=== PATIENT | male | born 1975 | race Caucasian/White ===

== ENCOUNTER 2023-03-16 07:53 | Outpatient (OUT) | payer BC, SELFPAY ==
--- NOTE | 2023-03-16 07:56 | CT_ITS ---
[address] [address] Patient Name: SUJATA REYNA MRN: [id number] date: 1975 Sex: M Assigned Patient Location: CT Current Patient Location: CT Accession/Order Number: [id number] Exam Date: 03/16/2023 08:05 Report Date: 03/16/2023 09:56 At the request of: JOSH BACH Procedure: CT angio chest EXAMINATION: CT angio chest HISTORY: Other Pulmonary Embolism I26.99 ; pulmonary embolism follow-up COMPARISON: CT chest 09/10/2022 TECHNIQUE: Multi-planar CT images were created with IV contrast. Axial, Coronal, and Sagittal images. Dose reduction techniques were achieved by using automated exposure control and/or adjustment of mA and/or kV according to patient size and/or use of iterative reconstruction technique. 3-D reconstruction was performed on a separate workstation. FINDINGS: VASCULATURE: No pulmonary embolism or abnormal opacity. LUNGS: A few calcified granulomas and a trace amount of atelectasis within the dependent lung regions. No mass, infiltrates, or significant chronic interstitial changes. PLEURA: No mass, effusion, or pneumothorax. MATEO: No mass or adenopathy. MEDIASTINUM: No mass or adenopathy. CARDIAC: No enlargement, pericardial effusion, or pericardial thickening. AORTA: No aneurysm or dissection. CHEST WALL: No mass or axillary adenopathy. BONES: No bone lesion or fracture. LIMITED ABDOMEN: No suspicious findings. Limited images of the upper abdomen. OTHER: Negative. CT/CT angio chest IMPRESSION: 1. Clearing of previously seen pulmonary emboli. 2. No pulmonary infiltrates or lymphadenopathy. Electronically authenticated by: TRIPP CAMPO Date: 03/16/2023 09:56
== END 2023-03-16 07:54 | disposition home or self-care (01) ==
LOC: CT 07:53
PROVIDERS: PCP Family Medicine; Visit Provider Family Medicine
DX: I26.99 Other pulmonary embolism without acute cor pulmonale (principal)
CPT/HCPCS: 71275; Q9967

== ENCOUNTER 2023-03-26 07:58 | Outpatient (OUT) | payer BC, SELFPAY ==
--- NOTE | 2023-03-26 08:10 | US_ITS ---
The [address] [address] Patient Name: SUJATA REYNA MRN: [id number] date: 1975 Sex: M Assigned Patient Location: US Current Patient Location: US Accession/Order Number: [id number] Exam Date: 03/26/2023 08:15 Report Date: 03/26/2023 09:51 At the request of: JOSH BACH Procedure: US venous doppler LE RT EXAMINATION: US venous doppler LE RT HISTORY: Acute Embolism And Thrombosis I82.90 COMPARISON: No relevant comparison available. FINDINGS: REGION: Right lower extremity THROMBI: None. COMPRESSIBILITY: Normal compressibility. FLOW: Normal waveform and antegrade flow between 5 and 20 cm/s. OTHER: None. US/US venous doppler LE RT IMPRESSION: 1. No deep vein thrombus within the right lower extremity. Electronically authenticated by: TRIPP CAMPO Date: 03/26/2023 09:51
== END 2023-03-26 07:59 | disposition home or self-care (01) ==
LOC: US 07:58
PROVIDERS: PCP Family Medicine; Visit Provider Family Medicine
DX: I82.90 Acute embolism and thrombosis of unspecified vein (principal)
CPT/HCPCS: 93971

== ENCOUNTER 2023-04-15 06:58 | Outpatient (OUT) | payer BC, SELFPAY ==
--- NOTE | 2023-04-15 08:04 | CA_ITS ---
Patient: SUJATA REYNA Exam Date: 04/15/2023 : 1975 Gender:M Ordering : Rishabh Beo Admission #: [id number] Family : Order #: [id number] CLICK HERE TO VIEW EXAM ECHOCARDIOGRAM REPORT PROCEDURE: CA ECHO DOPPLER COMPLETE INDICATIONS: Chronic systolic heart failure COMPARISON: None. DESCRIPTION: COMPLETE ECHOCARDIOGRAM Real-time transthoracic echocardiography with 2D, M-mode, spectral and color flow Doppler performed. QUALITY: Technical quality was good. LEFT VENTRICLE: Normal chamber size. Normal left ventricular wall thickness. Global left ventricular systolic function is normal. Abnormal septal motion likely related to bundle branch block. LV EF: Visual estimation of left ventricular ejection fraction is 55%. DIASTOLIC: Normal diastolic function. ATRIAL SEPTUM: LEFT ATRIUM: Normal chamber size. RIGHT ATRIUM: Mild dilatation. RIGHT VENTRICLE: Normal chamber size. Normal right ventricular systolic function. TRICUSPID VALVE: Normal mobility and thickness. No stenosis with trivial regurgitation. No evidence of pulmonary hypertension. RVSP 23 mmHg MITRAL VALVE: Normal mobility and thickness. No evidence of mitral valve stenosis. There is no mitral annular calcification. Trivial mitral regurgitation. AORTIC VALVE: Normal trileaflet appearance. No visible sclerosis. Normal leaflet mobility. No evidence of aortic valve stenosis. No aortic regurgitation. AORTIC ROOT: Normal diameter and appearance. PULMONIC VALVE: Normal thickness and mobility. No stenosis. Trivial regurgitation. PERICARDIUM: No evidence of pericardial effusion. IVC: Collapses with inspirations. Normal size. PLEURA: CONCLUSION: 1. Left ventricular systolic function is normal. Estimated LVEF is 55%. 2. Normal right ventricular size and systolic function. 3. No significant valvular dysfunction. 4. Normal right-sided pressures. 5. No pericardial effusion. Adult Echocardiography Procedure Report Left Ventricle LVEDD (3.7 - 5.6 cm): 5.25 cm LVESD (2.2 - 4.0 cm): 3.72 cm LVIVS thickness (0.6 - 1.2 cm): 0.87 cm LVPW thickness (0.5 - 1.0 cm): 0.96 cm e': 0.10 m/s E - e': 7.93 LVOT Max Gradient: 4.25 mm[Hg], 4.79 mm[Hg] LVOT Area (cm2): 1.06 m/s Peak Velocity (LVOT): 1.03 m/s, 1.09 m/s Mean Velocity (LVOT): 0.73 m/s LVOT Diameter 2.07 cm Left Ventricular Ejection Fraction: 55% Left Atrium LA Volume Index (2D A2C): 34.60 ml/m2 Left Atrium Systolic Dimension: 4.55 cm Mitral Valve MV E to A Ratio: 1.05 Mitral Valve A-Wave Peak Velocity: 0.76 m/s Mitral Valve E-Wave Peak Velocity: 0.79 m/s Right Ventricle RV Internal Diastolic Dimension: 3.59 cm Aorta AO Root Diam: 2.79 cm Ascending Ao Diam: 2.74 cm Aortic Valve AoV Area ([place]): 2.42 cm2, 2.35 cm2 AoV Area (VTI): 2.24 cm2, 2.20 cm2 Peak Velocity(Antegrade Flow): 1.47 m/s Peak Gradient(Antegrade Flow): 8.69 mm[Hg] Mean Velocity(Antegrade Flow): 1.03 m/s Mean Gradient(Antegrade Flow): 4.92 mm[Hg] Velocity Time Integral: 29.93 cm Tricuspid Valve Peak Velocity (Regurgitant Flow): 1.97 m/s, 2.21 m/s, 2.02 m/s Pulmonic Valve Mean Gradient: 5.30 mm[Hg], 4.96 mm[Hg], 4.96 mm[Hg] Mean Velocity: 1.07 m/s, 1.04 m/s, 1.04 m/s Peak Velocity: 1.53 m/s Peak Gradient: 9.48 mm[Hg], 9.48 mm[Hg], 9.09 mm[Hg] Right Atrium Right Atrium Systolic Pressure: 63.76 ml, 63.76 ml Dictated by: Dakota Swain M.D. on 04/15/2023 at 19:43 Approved by: Dakota Swain M.D. on 04/15/2023 at 19:46
== END 2023-04-15 06:59 | disposition home or self-care (01) ==
LOC: CARD 06:59
PROVIDERS: PCP Family Medicine; Visit Provider Internal Medicine Cardiovascular Disease
DX: I50.22 Chronic systolic (congestive) heart failure (principal)
CPT/HCPCS: 93306; 93356

== ENCOUNTER 2023-04-30 09:12 | Outpatient (OUT) | payer BC, SELFPAY ==
[2023-04-30 10:11] LABS: Basophils Absolute Auto 0.1 10^3/uL (0.0-0.1); Basophils Percent Auto 0.8 % (0.2-2.0); Eosinophils Absolute Auto 0.2 10^3/uL (0.0-0.7); Eosinophils Percent Auto 3.1 % (0.9-7.0); Hematocrit 42.2 % (42.0-54.0); Hemoglobin 14.2 g/dL (14.0-18.0); Immature Granulocytes Abs Auto 0.07 10^3/uL (0.00-0.03); Immature Granulocytes Pct Auto 1.1 % (0.0-0.5); Lymphocytes Absolute Auto 1.6 10^3/uL (1.2-3.8); Lymphocytes Percent Auto 24.7 % (20.5-60.0); Mean Corpuscular HGB Conc 33.6 g/dL (29.9-35.2); Mean Corpuscular Hemoglobin 31.5 pg (25.9-34.0); Mean Corpuscular Volume 93.6 fL (80.0-94.0); Mean Platelet Volume 9.3 fL (9.5-13.5); Monocytes Absolute Auto 0.9 10^3/uL (0.3-0.8); Monocytes Percent Auto 13.1 % (1.7-12.0); Neutrophils Absolute Auto 3.7 10^3/uL (1.4-6.5); Neutrophils Percent Auto 57.2 % (43.0-75.0); Platelet Count 259 10^3/uL (150-450); Red Blood Count 4.51 10^6/uL (4.70-6.10); White Blood Count 6.5 10^3/uL (4.0-11.0)
[2023-04-30 10:34] LABS: Alanine Aminotransferase 60 U/L (16-63); Albumin Globulin Ratio 1.1; Alkaline Phosphatase 90 U/L (46-116); Anion Gap 13.6; Aspartate Amino Transferase 23 U/L (15-37); BUN Creatinine Ratio 20.5; Bilirubin Total 0.6 mg/dL (0.2-1.0); C Reactive Protein 0.9 mg/dL (<=1.0); Calcium 8.7 mg/dL (8.5-10.1); Carbon Dioxide 27.4 mmol/L (21.0-32.0); Chloride 103 mmol/L (98-107); Chol HDL Ratio 3.1; Cholesterol 138 mg/dL (<=200); Estimated GFR (African America >60 (>=60); Estimated GFR (Non-African Ame >60 (>=60); Free T3 2.88 pg/mL (2.18-3.98); Globulin 3.6 g/dL; Glucose 95 mg/dL (74-106); HDL Cholesterol 44 mg/dL (40-60); Sodium 140 mmol/L (136-145); Thyroid Stimulating Hormone 2.032 uIU/mL (0.358-3.740); Total Protein 7.6 g/dL (6.4-8.2); Triglycerides 90 mg/dL (<=150); Uric Acid 3.8 mg/dL (3.5-7.2)
[2023-04-30 11:00] LABS: Prostate Specific Antigen Scrn 0.82 ng/mL (<=4.00)
[2023-04-30 11:17] LABS: Estimated Average Glucose 111 mg/dL; Glycohemoglobin A1C 5.5 % (4.5-6.2)
[2023-05-01 06:08] LABS: Antistreptolysin O Ab 119.9 IU/mL (0.0-200.0); Rheumatoid Factor (RF) <10.0 IU/mL (<14.0)
[2023-05-02 12:07] LABS: Insulin 18.5 uIU/mL (2.6-24.9)
[2023-05-04 08:11] LABS: Antinuclear Antibodies, IFA Negative (.)
== END 2023-04-30 09:13 | disposition home or self-care (01) ==
LOC: LAB 09:13
PROVIDERS: PCP Family Medicine; Visit Provider Family Medicine
DX: Z00.00 Encounter for general adult medical examination without abnormal findings (principal); Z12.5 Encounter for screening for malignant neoplasm of prostate
CPT/HCPCS: 36415; 80053; 80061; 83036; 83525; 84436; 84443; 84481; 84550; 85025; 86038; 86060; 86140; 86430; 86431; G0103

== ENCOUNTER 2023-05-04 14:36 | Outpatient (OUT) | payer BC, SELFPAY ==
--- NOTE | 2023-05-04 | XR_ITS ---
The [address] [address] Patient Name: SUJATA REYNA MRN: [id number] date: 1975 Sex: M Assigned Patient Location: [facility] Current Patient Location: Accession/Order Number: [id number] Exam Date: 05/04/2023 14:36 Report Date: 05/05/2023 07:41 At the request of: BRANDON MCCULLOUGH Procedure: XR foot LT min 3V PROCEDURE: XR foot LT min 3V HISTORY: LEFT FOOT PAIN ; lump and increasing pain in region of first metatarsophalangeal joint COMPARISON: None. FINDINGS: BONES:Joint space narrowing, bone hypertrophy, and large periarticular degenerative osteophytes at the first metatarsophalangeal joint. Separate ossifications dorsal to the joint may represent heterotopic bone formation from remote injury. No acute fracture, dislocation, or bone lesion. SOFT TISSUES:No visible soft tissue swelling. EFFUSION:None visible. OTHER: Negative. XR/XR foot LT min 3V IMPRESSION: 1. Marked degenerative changes of the first metatarsophalangeal joint favoring osteoarthritis. Electronically authenticated by: TRPIP CAMPO Date: 05/05/2023 07:41
== END 2023-05-04 14:37 | disposition home or self-care (01) ==
LOC: RAD 14:36
PROVIDERS: PCP Family Medicine; Visit Provider Physician Assistant
DX: M79.672 Pain in left foot (principal)
CPT/HCPCS: 73630

== ENCOUNTER 2023-05-18 14:19 | Outpatient (OUT) | payer BC, SELFPAY | END 2023-05-18 14:20 | disposition home or self-care (01) | LOC: SLEEP 14:19 → LAB 14:39 → SLEEP 14:41 | PROVIDERS: PCP Internal Medicine Cardiovascular Disease; Visit Provider Internal Medicine Cardiovascular Disease | DX: G47.33 Obstructive sleep apnea (adult) (pediatric) (principal) | CPT/HCPCS: 95806 ==

== ENCOUNTER 2023-06-11 09:37 | Outpatient (OUT) | payer BC, SELFPAY ==
[2023-06-11 09:49] LABS: Basophils Percent Auto 0.7 % (0.2-2.0); Eosinophils Absolute Auto 0.1 10^3/uL (0.0-0.7); Eosinophils Percent Auto 2.5 % (0.9-7.0); Hematocrit 43.3 % (42.0-54.0); Hemoglobin 14.5 g/dL (14.0-18.0); Immature Granulocytes Abs Auto 0.04 10^3/uL (0.00-0.03); Immature Granulocytes Pct Auto 0.7 % (0.0-0.5); Lymphocytes Absolute Auto 1.5 10^3/uL (1.2-3.8); Lymphocytes Percent Auto 27.5 % (20.5-60.0); Mean Corpuscular HGB Conc 33.5 g/dL (29.9-35.2); Mean Corpuscular Hemoglobin 31.1 pg (25.9-34.0); Mean Corpuscular Volume 92.9 fL (80.0-94.0); Mean Platelet Volume 8.8 fL (9.5-13.5); Monocytes Absolute Auto 0.6 10^3/uL (0.3-0.8); Monocytes Percent Auto 11.3 % (1.7-12.0); Neutrophils Absolute Auto 3.2 10^3/uL (1.4-6.5); Neutrophils Percent Auto 57.3 % (43.0-75.0); Platelet Count 239 10^3/uL (150-450); Red Blood Count 4.66 10^6/uL (4.70-6.10); Red Cell Distribution Width 12.5 % (11.0-15.0); White Blood Count 5.6 10^3/uL (4.0-11.0)
[2023-06-11 10:00] LABS: Anion Gap 9.7; BUN Creatinine Ratio 18.5; Calcium 8.9 mg/dL (8.5-10.1); Carbon Dioxide 29.1 mmol/L (21.0-32.0); Chloride 101 mmol/L (98-107); Estimated GFR (African America >60 (>=60); Estimated GFR (Non-African Ame >60 (>=60); Glucose 97 mg/dL (74-106); Potassium 3.8 mmol/L (3.5-5.1); Sodium 136 mmol/L (136-145)
== END 2023-06-11 09:38 | disposition home or self-care (01) ==
LOC: LAB 09:38
PROVIDERS: PCP Family Medicine; Visit Provider Internal Medicine Cardiovascular Disease
DX: I48.3 Typical atrial flutter (principal)
CPT/HCPCS: 36415; 80048; 85025

== ENCOUNTER 2023-06-23 19:46 | Outpatient (OUT) | payer BC, SELFPAY ==
--- OUTSIDE RECORDS SUMMARY | 2023-06-23 19:49 | XMS_ITS | CCD ---
Author Name Unknown Address [address] [place] [address] Organization [facility] Care Team Providers Care Recording Studio Set Up Worker Name Role Phone Josh Bach Primary Care Physician MIKALA ., DR MORENO Attending Unavailable HOY ., DR MORENO Consulting Unavailable HOY ., DR MORENO Primary Care Unavailable HOY ., DR MORENO Admitting Unavailable WEST, DR TERESSA Rai Consulting Unavailable HOY ., DR MORENO Attending Unavailable HOY ., DR MORENO Consulting Unavailable HOY ., DR MORENO Primary Care Unavailable HOY ., DR MORENO Admitting Unavailable HOY ., DR MORENO Consulting Unavailable HOY ., DR MORENO Attending Unavailable HOY ., DR MORENO Primary Care Unavailable HOY ., DR MORENO Admitting Unavailable WEST, DR TERESSA Rai Consulting Unavailable ZIEBER, DR TRIPP Zurita Consulting Unavailable HOY ., DR MORENO Attending Unavailable HOY ., DR MORENO Consulting Unavailable HOY ., DR MORENO Primary Care Unavailable HOY ., DR MORENO Admitting Unavailable GRECHNY ., KATIE RICHARDSON Consulting Unavailshade LLANES ., DR MÉNDEZ Consulting Unavailable SAMSA ., SOREN Consulting Unavailable AUTUMN ., VITO Consulting Unavailable SISTER, CONNOR Consulting Unavailable NEWATIA, JEAN Consulting Unavailable COATS, NORI Consulting Unavailable HOY ., DR MORENO Attending Unavailable HOY ., DR MORENO Consulting Unavailable HOY ., DR MORENO Primary Care Unavailable HOY ., DR MORENO Admitting Unavailable HAY ., DR MÉNDEZ Consulting Unavailable ELENA KNIGHT Consulting Unavailable ERNA WILKES Consulting Unavailable HOY ., DR MORENO Attending Unavailable HOY ., DR MORENO Consulting Unavailable HOY ., DR MORENO Primary Care Unavailable HOY ., DR MORENO Admitting Unavailable NILLEduardo R Attending Unavailable Josh Bach Referring Unavailable NILL Eduardo R Attending Unavailable Benton CARL Attending Unavailable Benton CARL Attending Unavailable NILL, Eduardo Zurita Referring Unavailable NILL, Eduardo Zurita Attending Unavailable NILL, Eduardo Zurita Admitting Unavailable BARAZHawk, MARIE Attending Unavailable MADELAINE, RISHABH Attending Unavailable JESUS, JUSTUS Attending Unavailable BARAZI, MARIE Attending Unavailable GAMALIEL, SARYADIRA Admitting Unavailable AHMED, FLASH Attending Unavailable MADELAINE, RISHABH Admitting Unavailable MADELAINE, RISHABH Attending Unavailable MADELAINE, RISHABH Admitting Unavailable MADELAINE, RISHABH Attending Unavailable MADELAINE, RISHABH Admitting Unavailable MADELAINE, RISHABH Attending Unavailable SERGEY, ISA Attending Unavailable MADELAINE, RISHABH Attending Unavailable EMILY, SHIRA Referring Unavailable EMILY, SHIRA Referring Unavailable AHMED, FLASH Referring Unavailable MADELAINE, RISHABH Referring Unavailable MADELAINE, RISHABH Referring Unavailable MADELAINE, RISHABH Referring Unavailable BARAZI, MARIE Attending Unavailable MADELAINE, RISHABH Attending Unavailable Allergies Allergy Classification Reported Allergen(s) Allergy Type Date of Onset Reaction(s) Facility (1 source) No Known Medication Allergies; Translations: [No Known Medication Allergies] Propensity to adverse reactions (disorder) [facility] Repository Medications Current Medications Medication Drug Class(es) Dates Sig (Normalized) Sig (Original) Ascorbic Acid (1 source) Vitamin C Start: 08-23-2019 Vitamin C 1,000 mg, Daily, Refills(s) 0 Start Date: 08/23/19 Status: Ordered aspirin 81 mg delayed release oral tablet (3 sources) Platelet Aggregation Inhibitor, Nonsteroidal Anti-inflammatory Drug Start: 04-14-2023 take 1 tablet by mouth once daily aspirin 81 mg Oral EC Tab 81 mg = 1 tab(s), Oral, Daily, Refills(s) 0, Prophylaxis Start Date: 04/14/23 Status: Ordered Start: 09-04-2022 aspirin Refill s(s) 0 Start Date: 09/04/22 Status: Ordered atorvastatin 40 mg oral tablet (2 sources) HMG-CoA Reductase Inhibitor Start: 04-07-2023 take 1 tablet by mouth once daily atorvastatin 40 mg Tab 40 mg = 1 tab(s), Oral, Daily, Refills(s) 0, High cholesterol Start Date: 04/07/23 Status: Ordered dapagliflozin 10 mg oral tablet (3 sources) Sodium-Glucose Cotransporter 2 Inhibitor Start: 09-04-2022 take 10 mg by mouth once daily dapagliflozin 10 mg, Oral, Daily, Refills(s) 0 Start Date: 09/04/22 Status: Ordered Start: 09-04-2022 dapagliflozin Refills(s) 0 Start Date: 09/04/22 Status: Ordered irbesartan 150 mg oral tablet (1 source) Angiotensin 2 Receptor Kristen Start: 2019 take 1 mg by mouth once daily irbesartan 150 mg Tab mg tab(s), Oral, Daily, Refills(s) 0 Start Date: 09/01/19 Status: Ordered metoprolol tartrate 100 mg oral tablet (3 sources) beta-Adrenergic Kristen Start: 09-04-2022 take 100 mg by mouth once daily metoprolol 100 mg, Oral, Daily, Refills(s) 0, High blood pressure Start Date: 09/04/22 Status: Ordered Start: 09-04-2022 metoprolol Ref ills(s) 0 Start Date: 09/04/22 Status: Ordered Multi Vitamin+ (1 source) Start: 08-23-2019 Multi Vitamin+ Refill(s) 0 Start Date: 08/23/19 Status: Ordered Red Yeast Rice (1 source) Start: 08-23-2019 take 1 mg by mouth once daily Red Yeast Rice mg, Oral, Daily, Refills(s) 0 Start Date: 08/23/19 Status: Ordered sacubitril 24 mg / valsartan 26 mg oral tablet (3 sources) Angiotensin 2 Receptor Kristen Start: 04-07-2023 take 1 tablet by mouth twice daily Entresto 24 mg-26 mg oral tablet 1 tab(s), Oral, BID, Refill(s) 0 Start Date: 04/07/23 Status: Ordered Start: 09-04-2022 sacubitril-isreal sartan Start Date: 09/04/22 Status: Ordered tadalafil 10 mg oral tablet (3 sources) Phosphodiesterase 5 Inhibitor Start: 08-30-2020 Cialis 10 mg Tab 10 mg = 1 tab(s), Oral, As Directed, PRN for erectile dysfunction, # 30 tab(s), Refills(s) 2, Pharmacy: [facility] [id number], 175, cm, 08/30/20 8:53:00 EST, Height/Length Dosing, 109, kg, 08/30/20 8:53:00 EST, Weight Dosing Start Date: 08/30/20 Status: Ordered terazosin 10 mg oral capsule (3 sources) alpha-Adrenergic Kristen Start: 09-04-2022 take 1 capsule by mouth once daily terazosin 10 mg Cap 10 mg = 1 cap(s), Oral, Daily, # 90 cap(s), Refills(s) 3, Pharmacy: [facility]/pharmacy #[id number], 175, cm, 09/04/22 8:34:00 EST, Height/Length Dosing, 99, kg, 09/04/22 8:34:00 EST, Weight Dosing Start Date: 09/04/22 Status: Ordered Vitamin D3 (1 source) Start: 08-30-2020 Vitamin D3 Refills(s) 0 Start Date: 08/30/20 Status: Ordered Problems Active Problems Problem Classification Problem Date Documented Da te Episodic/Chronic Acute bronchitis (1 source) Acute bronchitis, unspecified; Translations: [ACUTE BRONCHITIS UNSPECIFIED] Onset: 3 Episodic Anxiety disorders (2 sources) Anxiety 04-07-2023 Chronic Cardiac dysrhythmias (7 sources) Paroxysmal atrial fibrillation; Translations: [Atrial fibrillation] Onset: 3 04-07-2023 Chronic Chronic obstructive pulmonary disease and bronchiectasis (1 source) Bronchitis, not specified as acute or chronic; Translations: [BRONCHITIS NOT SPEC ACUTE/CHRON] Onset: 3 Episodic Conduction disorders (4 sources) Left bundle branch block; Translations: [Left bundle-branch block, unspecified] Onset: 3 04-07-2023 Chronic Congestive heart failure; nonhypertensive (8 sources) Heart failure, unspecified; Translations: [Acute systolic (congestive) heart failure] Onset: 3 04-07-2023 Chronic Coronary atherosclerosis and other heart disease (2 sources) Unstable angina; Translations: [Unstable angina] Onset: 3 Chronic Diabetes mellitus without complication (6 sources) Glycosuria; Translations: [Glycosuria] Onset: 2 Episodic Disorders of lipid metabolism (2 sources) Mixed hyperlipidemia; Translations: [Mixed hyperlipidemia] Onset: 3 Chronic Essential hypertension (6 sources) Hypertensive disorder; Translations: [Essential (primary) hypertension] Onset: 3 08-23-2019 Chronic Hyperplasia of prostate (4 sources) Benign prostatic hypertrophy with outflow obstruction; Translations: [Benign prostatic hyperplasia with lower urinary tract symptoms] Onset: 3 Chronic Inflammatory conditions of male genital organs (3 sources) Prostatitis 08-23-2019 Episodic Neoplasms of unspecified nature or uncertain behavior (4 sources) Neoplasm of uncertain behavior of skin; Translations: [Neoplasm of uncertain behavior of skin] Onset: 3 Episodic Nonspecific chest pain (1 source) Chest pain, unspecified; Translations: [CHEST PAIN UNSPECIFIED] Onset: 3 Episodic Other aftercare (1 source) 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; Translations: [WATER RECLAMATION SYSTEMS OPERATOR CURRENT USE OF ASPIRIN] Onset: 3 Episodic Other aftercare (1 source) Other buttermaker continuous churn (current) drug therapy; Translations: [OTH WATER RECLAMATION SYSTEMS OPERATOR CURRENT DRUG THERAPY] Onset: 3 Episodic Other and unspecified benign neoplasm (1 source) Lipoma of skin and subcutaneous tissue of limb; Translations: [Benign lipomatous neoplasm of skin and subcutaneous tissue of left arm] Onset: 3 Episodic Other and unspecified benign neoplasm (2 sources) Lipoma of shoulder 04-14-2023 Episodic Other and unspecified benign neoplasm (1 source) Lipoma of skin and subcutaneous tissue of trunk; Translations: [Benign lipomatous neoplasm of skin and subcutaneous tissue of trunk] Onset: 3 Episodic Other liver diseases (4 sources) Liver disease, unspecified; Translations: [LIVER DISEASE UNSPECIFIED] Onset: 3 Chronic Other lower respiratory disease (1 source) Acute respiratory distress; Translations: [ACUTE RESPIRATORY DISTRESS] Onset: 3 Episodic Other lower respiratory disease (1 source) Hypoxemia; Translations: [HYPOXEMIA] Onset: 3 Episodic Other lower respiratory disease (1 source) Dyspnea, unspecified; Translations: [DYSPNEA UNSPECIFIED] Onset: 3 Episodic Other lower respiratory disease (2 sources) Snoring; Translations: [Snoring] Onset: 3 Episodic Other male genital disorders (1 source) Male erectile dysfunction, unspecified; Translations: [Erectile dysfunction] Onset: 3 Chronic Other male genital disorders (3 sources) Impotence 08-23-2019 Chronic Other nutritional; endocrine; and metabolic disorders (3 sources) Body mass index 30+ - obesity 09-04-2022 Chronic Other nutritional; endocrine; and metabolic disorders (2 sources) Obesity 04-07-2023 Chronic Shira-; endo-; and myocarditis; cardiomyopathy (except that caused by tuberculosis or sexually transmitted disease) (2 sources) Cardiomyopathy 04-07-2023 Chronic Phlebitis; thrombophlebitis and thromboembolism (1 source) Acute embolism and thrombosis of right femoral vein; Translations: [ACUTE EMBO THROMBOS RT FEMORAL VEIN] Onset: 3 Episodic Pleurisy; pneumothorax; pulmonary collapse (1 source) Pleurisy; Translations: [PLEURISY] Onset: 3 Episodic Pulmonary heart disease (5 sources) Other pulmonary embolism without acute cor pulmonale; Translations: [H/O: pulmonary embolus] Onset: 3 Episodic Residual codes; unclassified (1 source) Other specified postprocedural states; Translations: [OTH SPECIFIED POSTPROCEDURAL STATES] Onset: 3 Episodic Screening and history of mental health and substance abuse codes (4 sources) Ex-smoker; Translations: [Personal history of nicotine dependence] Onset: 3 08-23-2019 Episodic Unclassified (4 sources) CONTACT W/AND (SUSP) EXPOS COVID-19; Translations: [CONTACT W/AND (SUSP) EXPOS COVID-19] Onset: 3 Unclassified (2 sources) Patient encounter status 04-14-2023 Unclassified (1 source) Other supraventricular tachycardia; Translations: [Other supraventricular tachycardia] Onset: 3 Unclassified (1 source) Other ventricular tachycardia; Translations: [Other ventricular tachycardia] Onset: 3 Unclassified (2 sources) Hospital Follow-up; Translations: [Hospital Follow-up] Onset: 3 Past or Other Problems Problem Classification Problem Date Documented Date Episodic/Chronic Cardiac dysrhythmias (9 sources) Tachycardia, unspecified; Translations: [Palpitations] Onset: 08-18-2022 Episodic Other screening for suspected conditions (not mental disorders or infectious disease) (10 sources) Abnormal findings on diagnostic imaging of other abdominal regions, including retroperitoneum; Translations: [Abnormal electrocardiogram [ECG] [EKG]] Onset: 08-24-2022 Episodic Syncope (6 sources) Syncope and collapse; Translations: [SYNCOPE AND COLLAPSE] Onset: 08-27-2022 Episodic Unclassified (1 source) CONTACT W/AND (SUSP) EXPOS COVID-19; Translations: [CONTACT W/AND (SUSP) EXPOS COVID-19] Onset: 09-04-2022 Unclassified (1 source) Other supraventricular tachycardia; Translations: [Other supraventricular tachycardia] Onset: 06-14-2023 Unclassified (1 source) Other ventricular tachycardia; Translations: [Other ventricular tachycardia] Onset: 10-02-2022 Results Test Name Value Interpretation Reference Range Facility [facility] 06-14-2023 [facility] Electrophysiology Consult Note [facility] Reason for visit: svt, nsvt, s/p loop, s/p avnrt ablation LOOP reveals suggestion of atrial flutter / 2:1 AT as per strips on 03/26/23 @10:40am. He was unaware of this. His BP has been high and he feels better with Irbesartan. He feels tired with Lopressor 75mg bid. Otherwise has been doing well with no complaints of chest pain, shortness of breath, DESAI, LE edema. e did have some nocturnal bradycardia which could be related to his beta-kristen but patient states he does snore and wake up frequently which raises concern for undiagnosed sleep apnea STOP-BANG is 4 03/23/23 Patient had a repeat CTA on 03/16/23 which ruled out any more PE. . Like to stop his anticoagulation. LOOP eval has revealed no episodes of tachycardia. few episodes of VT that was noted T wave oversensing and noise. --------- 10/20/22 HPI: Patient for follow-up s/p EP study/01/17. 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 Post ablation patient continued to have symptoms of palpitations, and an event monitor placed due to being admitted at [facility] for chest discomfort and acute PE. Event monitor revealed NSVT with symptoms of dizziness. He had reduced EF with AVNRT but now EF has improved. He was then taken to EP lab for V stim to induce an SVT for possible ablation. There is no inducible VT or tachycardia. There was presence of retrograde concealed accessory pathway in the left lateral location which was not pursued due to no tachycardia being induced. Catheter movement would induce a flutter as well as A-fib which self terminated on its own. Patient continues to experience palpitations although less frequently than before. But he has experience of palpitations with lightheadedness. I discussed with him because his symptoms are persisting we should continue to move forward with a loop monitor insertion to monitor palpitations for VT/SVTs --------- Previous 08/[address] burkett HPI: Sujata Reyna is a 47 y.o. year old with past medical history of hypertension and recent admission to an outside hospital due to palpitations. Nearly 3 weeks ago the patient had an episode of chest tightness and fluttering, this was associated with lightheadedness and presyncopal symptoms. He was admitted at an outside hospital, his EKG was showing left bundle branch block and he had an echocardiogram and stress test done as an outpatient, echo is showing an EF of 45 to 50% with abnormal septal motion. stress test was showing areas of moderate severity perfusion abnormalities in anterior wall. Patient continues to report increased dyspnea recently, no orthopnea, no paroxysmal nocturnal dyspnea. Patient underwent heart cath and was unremarkable. EP study was done by Dr Blas and a intermediate RP tachycardia was induced. No ventricular overdrive pacing was performed to differentiate between SVT. Radiofrequency ablation of slow pathway was performed and he was discharged. Ventricular stimulation for VT was not done. Since his discharge from [facility], he was admitted to [facility] for chest pain. He was found to have an acute PE and was started on Eliquis. BLE doppler showed small nonocclusive right femoral vein thrombus. He also noted that he had also traveled down to [place] via car the few days prior to episode. Since his admission at [facility] last week, he has been feeling better. Chest pain is intermittent but improved. He denies dyspnea,He had an event monitor placed and this revealed NSVT again with symptoms of dizziness. ( Strips attached) PMH- HTN PSH- no pertinent cardiac procedures/surgery FMH- Father passed 48 yo aneurysm- (back of neck), HTN; Social- Former smoker 17 yrs- 1 PPD, quit in 2008, Social- beer here and there; denied illicit drug use Review of Systems Constitutional: Negative for chills, decreased appetite, fever, malaise/fatigue and weight gain. Cardiovascular: Positive for palpitations/lightheade dness. Negative for claudication, dyspnea on exertion, irregular heartbeat, leg swelling, near-syncope, orthopnea, palpitations, paroxysmal nocturnal dyspnea and syncope. Respiratory: Negative for cough, shortness of breath and wheezing. PMH: Past Medical History: Diagnosis Date Abnormal ECG Arrhythmia AVNRT (AV erica re-entry tachycardia) CHF (congestive heart failure) (CMS/HCC) Hypertension PSH: Past Surgical History: Procedure Laterality Date ABLATION OF DYSRHYTHMIC FOCUS CARDIAC CATHETERIZATION HERNIA REPAIR SH: Social Determinants of Health Tobacco Use: Medium Risk (04/23/2023) Patient History Smoking Tobacco Use: Former Smokeless Tobacco Use: Never Passive Exposure: Past Alcohol Use: Not on file Financial Resource Strain: Low Risk (08/28/2022) O (more content not included)... Normal [facility] NURSNOTEon 06-14-2023 NURSNOTE RN educated pt on d/ c instructions. RN encouraged pt to voice any questions or concerns. Pt verbalizes no questions or concerns at this time. Normal [facility] Orders Onlyon 06-07-2023 Orders Only [id number] Sujata Reyna 1975 M Date Provider Department Center 06/07/2023 BELINDA ALVAREZ [facility] No family history on file [facility] General Surgery Office/Clini c Noteon 05-29-2023 General Surgery Office/Clinic Note Chief Complaint post operative follow up HPI Staff 12 day post operative follow up post colonoscopy with sigmoid polypectomy and excisional biopsy right posterior thigh lesion and left upper back lipoma. History of Present Illness s/p colonoscopy with removal of small hyperplastic sigmoid polyp, also excision lipoma left upper back and skin lesion right upper posterior thigh; doing well, mild soreness from thigh incision, irritation of sutures, no drainage; pathology consistent with benign lipoma, and for thigh lesion dermatofibroma, positive margins. Review of Systems ROS - Provider Constitutional: no fever, no sweats, no weight loss. Eyes: no glasses, no blurred vision, no visual loss. ENMT: no dentures, no hoarseness, no swallowing difficulties, no hearing loss, no ear infection(s), no nose bleeds. Cardiovascular: normal blood pressure, no chest pain, regular heartbeat, no heart murmur. Respiratory: no shortness of breath, no cough, no asthma, no wheezing. Gastrointestinal: no nausea, no vomiting, no diarrhea, no constipation, no blood in stool, no change in bowel habits, no abdominal pain, no hepatitis. Genitourinary: no kidney stones, no urine infection, no dysuria. Musculoskeletal: no pain, no weakness. Skin: no changing moles, no rash, no skin lumps. Neurologic: no seizures, no epilepsy, no headache. Psychiatric: no emotional or psychiatric problem. Heme/Lymph: no bleeding problems, no anemia, no blood clots, no transfusions. Allergy/Immunologic: no swollen lymph nodes/glands, no IV drug abuse. Other: Additional ROS info: Except as noted in the above Review of Systems and in the History of Present Illness, all other systems have been reviewed and are negative or noncontributory. Physical Exam skin: left upper back incision healing well, no induratio or drainage, no erythema; right posterior thigh incision with erythema around sutures, no drainage. Assessment/Plan 1. Lipoma of left shoulder (D17.22: Benign lipomatous neoplasm of skin and subcutaneous tissue of left arm) doing well, call with problems/questions. 2. Dermatofibroma of thigh (D23.70: Other benign neoplasm of skin of unspecified lower limb, including hip) sutures removed, call with problems/questions; if recurs and is symptomatic, can proceed with wide excision. 3. Hyperplastic polyp of sigmoid colon (K63.5: Polyp of colon) f/u screening colonoscopy in 10 years. Follow-up No qualifying data available Problem List/Past Medical History Ongoing Anxiety Atrial fibrillation BMI 33.0-33.9,adult BPH with urinary obstruction Cardiomyopathy Chronic congestive heart failure Dermatofibroma of thigh Former smoker Glycosuria History of pulmonary embolism Hyperplastic polyp of sigmoid colon Hypertension Impotence LBBB (left bundle branch block) Lipoma of left shoulder Neoplasm of uncertain behavior of skin of thigh Obesity Prostatitis Screening for malignant neoplasm of colon Historical No qualifying data Procedure/Surgical History Colonoscopic polypectomy (05/14/2023), Excision of dermatofibroma (05/14/2023), Excision of lipoma of shoulder (05/14/2023), Fluoroscopic guidance for cardiac ablation (08/2022), Repair of right inguinal hernia. Medications aspirin 81 mg Oral EC Tab, 81 mg= 1 tab(s), Oral, Daily atorvastatin 40 mg Tab, 40 mg= 1 tab(s), Oral, Daily, Not taking Cialis 10 mg Tab, 10 mg= 1 tab(s), Oral, As Directed, PRN, 2 refills dapagliflozin, 10 mg, Oral, Daily Entresto 24 mg-26 mg oral tablet, 1 tab(s), Oral, BID metoprolol, 100 mg, Oral, Daily terazosin 10 mg Cap, 10 mg= 1 cap(s), Oral, Daily, 3 refills Allergies No Known Allergies No Known Medication Allergies Social History Alcohol Current, Beer, 1-2 times per week, 04/14/2023 Substance Abuse - Denies Substance Abuse, 04/14/2023 Tobacco Former smoker, quit more than 30 days ago Tobacco Use:. Never Smokeless Tobacco Use:. Cigarettes, 1 per day. Started age 18.0 Years. Stopped age 33 Years., 04/14/2023 Family History Hypertension: Mother and Father. Immunizations Vaccine Date Status Comments SARS-CoV-2 (COVID-19) Ad26 vaccine - Not Given Postpone due to refusal sipuleucel-T 03/25/2020 Recorded influenza virus vaccine, live, trivalent 04/03/2019 Recorded Normal [facility] Comment on above: Result Comment: Elec tronically Signed By: KEMAR MOLINA, Eduardo Galloway\Date and Time Signed: 05/29/23 10:25 EST Ambulatory Visit Summaryon 1 07-26-2022 Ambulatory Visit Summary SUJATA REYNA :1975 Visit Date:05/26/2023 Ambulatory Visit Instructions Your Care Team Attending Physician - KEMAR MOLINA, Eduardo Zurita Primary Care Physician - Josh Bach MD This Is Your Medications List aspirin (aspirin 81 mg Oral EC Tab) atorvastatin (atorvastatin 40 mg Tab) dapagliflozin metoprolol sacubitril-valsartan (Entresto 24 mg-26 mg oral tablet) tadalafil (Cialis 10 mg Tab) terazosin (terazosin 10 mg Cap) Procedures Performed Colonoscopic polypectomy (05/14/2023), Excision of dermatofibroma (05/14/2023), Excision of lipoma of shoulder (05/14/2023), Fluoroscopic guidance for cardiac ablation (08/2022), Repair of right inguinal hernia. What to do next Scheduled Follow-Up Appointments Wednesday 8:00 AM EST With: SIDDHARTHA MOLINA, Benton Zurita Where: [facility] Normal [facility] Postoperative Documentson Postoperative Documents [id number] IFF [facility] Reminderson 05-26-2023 Reminders - From: Leanne Iyer LPN To: GSN - Clinical; Sent: 05/26/2023 16:50:18 EST Show up: 04/13/2033 07:00:00 EDT Subject: colonoscopy recall Due Date/Time: 05/14/2033 07:00:00 EST Reminder/Recall Patient due for screening colonoscopy 05/14/2033. [facility] IntraOperative Documentson 1 07-19-2022 IntraOperative Documents [id number] TIFF [facility] Consenton 05-17-2023 Consent [id number] IFF [facility] Discharge Instructionson Discharge Instructions [id number] IFF Normal [facility] Main OR Intraoperative Recor don 05-17-2023 Main OR Intraoperative Record IntraOp Document Type FT Summary Primary Physician: Eduardo REINOSO MD Finalized Date/Time: 05/17/23 12:28:54 Pt. Name: SUJATA REYNA Bridgette /Sex: 1975 Male Med Rec #: [id number] Physician: Eduardo REINOSO MD Financial #: [id number] Pt. Type: O Room/Bed: / Admit/Disch: 05/14/23 06:49:57 - 05/14/23 23:59:59 Institution: Case Times FT Entry 1 Patient Times In Room 05/14/23 07:55:00 Out Room 05/14/23 08:55:00 Procedure Times Start 05/14/23 08:00:00 Stop 05/14/23 08:52:00 Anesthesia Times Start 05/14/23 07:55:00 Stop 05/14/23 08:55:00 Time at [place] 05/14/23 08:02:00 Last Modified By: Robert MCKEON, Evelin Valdivia 05/14/23 08:55:33 General Comments: Colonoscopy stop time at 0812./MIKE DELACRUZ/lesion procedure start time at 0818./MIKE DELACRUZ 05/17/23 chart opened for charge review per Emerita Bansal RN. [place] Case Attendance FT Entry 1 Entry 2 Entry 3 Case Attendee Deppen TOWEL HEMMER, Eunice Jones RN, Mel Duncan Role Performed TOWEL HEMMER Hemmer Automatic - Primary Scrub - Primary Time In 05/14/23 07:55:00 05/14/23 07:55:00 05/14/23 07:55:00 Time Out 05/14/23 08:55:00 05/14/23 08:55:00 05/14/23 08:55:00 Procedure COLONOSCOPY(Right, COLONOSCOPY(Right, COLONOSCOPY(Right, Left, .), CYST LESION Left, .), CYST LESION Left, .), CYST LESION REMOVAL(.) REMOVAL(.) REMOVAL(.) Comments Dr. Madrid is supervising Last Modified By: Robert MCKEON, Evelin Jones RN, Evelin Jones RN, Evelin Valdivia 05/14/23 08:55:35 05/14/23 08:56:01 05/14/23 08:56:01 Entry 4 Entry 5 Entry 6 Case Attendee Keyla Olea MD, Eduardo Hsieh CST, Echo Ortez Role Performed Staff - Other Surgeon - Primary Scrub - Primary Time In 05/14/23 07:55:00 05/14/23 07:55:00 05/14/23 07:55:00 Time Out 05/14/23 08:55:00 05/14/23 08:55:00 05/14/23 08:55:00 Procedure COLONOSCOPY(Right, COLONOSCOPY(Right, COLONOSCOPY(Right, Left, .), CYST LESION Left, .), CYST LESION Left, .), CYST LESION REMOVAL(.) REMOVAL(.) REMOVAL(.) Comments Last Modified By: Evelin Jones RN, RN, Evelin Jones RN, Evelin Valdivia 05/14/23 08:56:01 05/14/23 08:56:01 05/14/23 08:56:01 Perioperative Protocols FT Pre-Care Text: Implements protective measures prior to operative or invasive procedure, confirms identity before the operative or invasive procedure, verifies operative procedure, surgical site, and laterality Entry 1 Procedure(s) COLONOSCOPY(Right, Patient Identity Birthday, ID Band Left, .), CYST LESION Verified (select at Check, Patient REMOVAL(.) least 2): Participation Consents / H and P Anesthesia Consent, Operative Site Present Verified HandP, Surgery/Procedure Marking Verified Consent Surgical Site Yes Laterality Verified Yes Verified Procedure Verified Yes Correct Patient Yes Position Verified Availability Equipment, Medication Prep Dry Yes Verified (If Applicable) PreOp Antibiotic No Time Out Deppen Eunice CLARKE, Given Participants Evelin Jones RN, Mel Sweeney, Keyla Olea NILL MD, Jori Huber CST, Echo Ortez Time Out Complete 05/14/23 07:59:00 Outcomes Met? Yes Last Modified By: Evelin Jones RN 05/14/23 08:27:07 Post-Care Text: The patient is free from signs and symptoms of injury caused by extraneous objects Allergy Information FT Pre-Care Text: Verifies allergies Entry 1 Allergies Reviewed? Yes Allergies Reviewed Self/Patient With Outcomes Met? Yes Last Modified By: Evelin Jones RN 05/14/23 08:04:26 Post-Care Text: The patient received appropriate medication(s) safely administered during the perioperative period Surgical Procedures FT Entry 1 Entry 2 Procedure Description Procedure COLONOSCOPY CYST LESION REMOVAL Modifiers Right, Left, . . Surgeon Description Colonoscopy with COLONOSCOPY and LESION sigmoid colon RIGHT SIDE OF RIGHT polypectomy. Lesion THIGH and LYPOMA ON LEFT right side of righrt SHOULDER thigh removal. Lypoma on lest shoulder removal. Primary Procedure Yes No Primary Surgeon KEMAR MOLINA, Eduardo REINOSO MD, Eduardo Maza 05/14/23 08:00:00 05/14/23 08:00:00 Stop 05/14/23 08:52:00 05/14/23 08:52:00 Anesthesia Type General General Surgical Service General General Wound Class 2 - Clean-Contaminated 1 - Clean Last Modified By: Evelin Jones RN, RN, BSN, [facility] 05/14/23 08:52:23 05/17/23 12:22:19 General Case Data FT Pre-Care Text: Classifies surgical wound, implements aseptic technique, initiates traffic control Entry 1 Case Information OR ENDO 1 FT Case Level Level 2 Wound Class 2 - Clean-Contaminated Specialty General ASA Class 2 Preop Diagnosis Screening Postop Same As Preop No Postop Diagnosis Colonoscopy- Sigmoid Outcomes Met? Yes diverticulosis and sigmoid polyp. Lipoma removal on left shoulder. Excision of lesion right side of the right thigh. Last Modified By: Evelin Jones RN 05/14/23 08:13:28 Post-Care Text: (more content not included)... Normal [facility] Operative Reporton 3 Operative Report SURGERY DATE: 05/14/2023 PREOPERATIVE DIAGNOSIS: Enlarging lipoma, left upper shoulder as well as irritated posterior thigh skin lesion OPERATION: Excisional biopsy irritated right posterior thigh lesion and left upper back lipoma ANESTHESIA: Monitored anesthesia care as well as local with 0.5% Marcaine plain ESTIMATED BLOOD LOSS: Less than 5 mL INDICATIONS AND CONSENT: The patient is a 47 year old male who presented for screening colonoscopy. Also has irritated lesion of uncertain behavior in the right posterior thigh that becomes ulcerated and bleeds at times. He also has an enlarging subcutaneous nodule consistent with lipoma on the left upper back. Indications, risks, benefits, alternatives of proceeding with excisional biopsy of these lesions at the time of colonoscopy under monitored anesthesia care and local. Indications, risks, alternatives were explained in detail including the risk of bleeding, infection, scarring, pain, recurrence, need for further surgery. All of his questions were answered. Informed consent was obtained. PROCEDURE: The patient was in the Endoscopy Suite after his colonoscopy was completed. He remained in the left lateral decubitus position. The right upper thigh posterior skin lesion was prepped and draped in the usual sterile fashion. It was anesthetized with 0.5% Marcaine plain. It was excised in an elliptical fashion down to subcutaneous fat. Total length of the incision was 2 cm. It was sent off to Pathology. The subcutaneous tissue was reapproximated with interrupted 3-0 Monocryl suture. The skin was then closed with a 4-0 Nylon simple suture. Sterile dressing was applied. The patient was then placed in the right lateral decubitus position. The subcutaneous nodule on the left upper back was prepped and draped in the usual sterile fashion and anesthetized with 0.5% Marcaine plain. An incision was made over the long axis of the lesion in the area of the skin crease, carried down through the subcutaneous tissue using sharp dissection. A lipoma was encountered. This was freed up and sent off to Pathology. Maximum dimension was 4.5 cm. It was sent off to Pathology. The wound was irrigated. The subcutaneous tissue was reapproximated with interrupted 3-0 Monocryl suture. The skin was closed with a running 4-0 subcuticular Monocryl suture and skin glue. Steri-Strips were applied as well as a sterile pressure dressing. Sponge and needle counts were correct x3 per Nursing personnel. The patient tolerated the procedure well, was sent to Recovery Area in good condition. Eduardo Reinoso M.D. [facility] adelina Dictated: 05/14/2023 [id number] Transcribed: 05/14/2023 cc:Josh Bach M.D. [facility] Comment on above: Result Comment: Elec tronically Signed By: KEMAR MOLINA, Eduardo Zurita\.br\Date and Time Signed: 05/16/23 20:29 EST Progress Note-Physicianon Progress Note-Physician Patient: SUJATA REYNA Age: 47 years Sex: Male : 1975 Associated Diagnoses: None Author: Ricardo Madrid Jr, DO Preoperative Information Anesthesia Preop Info: Time patient last ate or drank 05/14/2023 00:00:00. Anesthesia history: Patient history: None. Family history+: None. Informed consent: Signed by patient. Re-evaluation prior to induction: Initial evaluation reviewed: No significant change. Review of Systems Eye: Negative except as documented in history of present illness. Ear/Nose/Mouth/Throat: Negative except as documented in history of present illness. Respiratory: Negative except as documented in history of present illness. Cardiovascular: Negative except as documented in history of present illness. Musculoskeletal: Negative except as documented in history of present illness. Neurologic: Negative except as documented in history of present illness. Health Status Allergies: Allergic Reactions (Selected) No Known Allergies No Known Medication Allergies Problem list: All Problems Prostatitis / SNOMED CT 70724031 / Confirmed Screening for malignant neoplasm of colon / SNOMED CT 400022826 / Confirmed Obesity / SNOMED CT 5802865464 / Confirmed Neoplasm of uncertain behavior of skin of thigh / SNOMED CT 674840119 / Confirmed Lipoma of left shoulder / SNOMED CT 076148161 / Confirmed LBBB (left bundle branch block) / SNOMED CT 342999610 / Confirmed Impotence / SNOMED CT 9062323579 / Confirmed Hypertension / SNOMED CT 3404744884 / Confirmed History of pulmonary embolism / SNOMED CT 678511614 / Confirmed Glycosuria / SNOMED CT 18613540 / Confirmed Former smoker / SNOMED CT 28793948 / Confirmed Chronic congestive heart failure / SNOMED CT 063970919 / Confirmed Cardiomyopathy / SNOMED CT 748544513 / Confirmed BMI 33.0-33.9,adult / SNOMED CT 264026591 / Confirmed BPH with urinary obstruction / SNOMED CT 1867383797 / Confirmed Atrial fibrillation / SNOMED CT 55035939 / Confirmed Anxiety / SNOMED CT 08859039 / Confirmed Canceled: Elevated PSA / SNOMED CT 3554912424 Canceled: Pyuria / SNOMED CT 8401817 Canceled: Hesitancy / SNOMED CT 223630670 Canceled: 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 Repair of right inguinal hernia ([id number]). Social History Social & Psychosocial Habits Alcohol 04/14/2023 Use: Current Type: Beer Frequency: 1-2 times per week Substance Abuse 04/14/2023 Risk Assessment: Denies Substance Abuse Tobacco 04/14/2023 Tobacco Use: Former smoker, quit more Smokeless tobacco use: Never Type: Cigarettes Tobacco use per day: 1 Started at age: 18.0 Years Stopped at age: 33 Years Comment: Quit 200808/23/2019 12:18 - Jerel Robbins MA Physical Examination Airway: Mallampati classification: II (soft palate, fauces, uvula visible). Respiratory: adequate air exchange. Cardiovascular: Regular rhythm. Plan [place] [employer] (ASA) physical status classification: Class II. Anesthetic Preoperative Plan: Anesthesia General. Normal [facility] Comment on above: Result Comment: Elec tronically Signed By: Ricardo Madrid Jr, DO\.br\Date and Time Signed: 05/16/23 07:08 EST Progress Note-Physician Patient: SUJATA REYNA Age: 47 years Sex: Male : 1975 Associated Diagnoses: None Author: Ricardo Madrid Jr, DO Postoperative Information Postoperative disposition: Postoperative disposition: To PACU. Optimetrix number: Optimetrix number [phone]. Anesthetic utilized: General. Health Status Allergies: Allergic Reactions (Selected) No Known Allergies No Known Medication Allergies Physical Examination Vital Signs 05/14/2023 9:16 EST Heart Rate Monitored 70 bpm Respiratory Rate Monitored 19 br/min Systolic Blood Pressure 153 mmHg HI Diastolic Blood Pressure 90 mmHg HI Mean Arterial Pressure, Cuff 111 mmHg SpO2 96 % 05/14/2023 9:10 EST Heart Rate Monitored 71 bpm Respiratory Rate Monitored 16 br/min Systolic Blood Pressure 141 mmHg HI Diastolic Blood Pressure 95 mmHg HI Mean Arterial Pressure, Cuff 110 mmHg SpO2 97 % 05/14/2023 9:05 EST Heart Rate Monitored 71 bpm Respiratory Rate Monitored 18 br/min Systolic Blood Pressure 141 mmHg HI Diastolic Blood Pressure 95 mmHg HI (Modified) SpO2 97 % 05/14/2023 9:00 EST Heart Rate Monitored 79 bpm Respiratory Rate Monitored 26 br/min Systolic Blood Pressure 130 mmHg Diastolic Blood Pressure 93 mmHg HI Mean Arterial Pressure, Cuff 105 mmHg SpO2 95 % 05/14/2023 8:55 EST Temperature Temporal Artery 36.5 DegC Heart Rate Monitored 76 bpm Respiratory Rate Monitored 16 br/min Systolic Blood Pressure 117 mmHg Diastolic Blood Pressure 71 mmHg Mean Arterial Pressure, Cuff 86 mmHg SpO2 97 % Pain Assessment: Controlled. General: Awake, Alert, Appropriate. Respiratory: Adequate air exchange. Cardiovascular: Stable, Normal peripheral perfusion. Neurological: Normal sensory function, Normal motor function. Assessment Anesthetic outcome No anesthetic complications noted. Adequate pain relief. able to void without difficulty, able to ambulate with assist, tolerating PO intake, no N/V. Review / Management Condition: Stable. Plan Transfer/Discharge: Transfer/Discharge Discharge when meets criteria ( To home ). Normal [facility] Comment on above: Result Comment: Elec tronically Signed By: Ricardo Madrid Jr, DO\.br\Date and Time Signed: 05/16/23 07:07 EST Colonoscopy Procedure Report on 05-14-2023 Colonoscopy Procedure Report Patient: SUJATA REYNA Age: 47 years Sex: Male : 1975 Associated Diagnoses: None Author: Eduardo REINOSO MD Pre-Procedure Procedure Date 05/14/2023 09:00:00 . Procedure Type: Colonoscopy. Procedure provider Performed by Eduardo REINOSO MD. Referred by Josh Bach MD. Current history and physical Documented on chart. Colorectal neoplasm risk assessment Average risk. Informed Consent After discussing the rationale, risks and benefits, and alternatives to this procedure, the patient provided signed consent for the procedure. Pre-procedure diagnosis: Screenin. ASA Classification: Class III. . Monitoring: See anesthesia record. . Procedure The procedure was performed in the hospital. See anesthesia record for sedation given during procedure. Rectal exam was performed and was normal. The patient was positioned starting in the left lateral decubitus position. Endoscope type used was an adult-size. The endoscope was lubricated then introduced through the anus. The scope was advanced to the cecum verified by photographing the appendiceal orifice, verified by photographing the ileocecal valve. No difficulties encountered during the procedure. The bowel preparation quality was good and was adequate (see polyps greater than or equal to 6 millimeters). The patient tolerated the procedure well. Findings Diverticulosis was identified in the sigmoid colon. The severity of the diverticulosis is moderate. A single polyp 3 mm in size was noted. The polyp was located in the sigmoid colon. The polyp(s) is sessile (0-Is). The polyp(s) is characterized as diminutive. Intervention(s) included cold biopsy forceps. Intervention was successful. Images Procedure images: anal canal sigmoid polyp ileocecal valve appendiceal orifice . Post-Procedure Complications: none. Estimated blood loss: 1 milliliters. Specimens: sent to pathology. Devices/ implants: none left in place. Impression and Plan Diagnosis: Colon, diverticulosis ([id number]-EY K57.30, Working, Medical). Course: Progressing as expected. Recommendations: Repeat colonoscopy:: In 5 years. Follow-up:: Await biopsy results in 3-5 days. Diet:: Regular diet. Medication resumption:: Continue current medications. Return to activities:: After 24 hours. Education and Follow-up: Counseled: Family. [facility] Comment on above: Other Comment: Angelita glasgow Attachment - attachment storage system not supported [id number] Can be viewed in source system Missing Attachment - attachment storage system not supported [id number] Can be viewed in source system Missing Attachment - attachment storage system not supported [id number] Can be viewed in source system Missing Attachment - attachment storage system not supported [id number] Can be viewed in source system Consent for Treatmenton 04-28 Consent for Treatment [id number] IFF [facility] Discharge Instructionson Discharge Instructions SUJATA REYNA :1975 Visit Date:05/14/2023 Inpatient Discharge Instructions Your Care Team Admitting Physician - Eduardo REINOSO MD Referring Physician - Eduardo REINOSO MD Reason for Your Visit SCREENING Your Diagnosis Encounter for colorectal cancer screening Encounter for screening for malignant neoplasm of rectum Lipoma of back Neoplasm of uncertain behavior of skin of thigh Tests Performed Pathology Tissue Exam -- Results Pending -- Please visit your patient portal for your results or contact your primary care physician. This Is Your Medications List aspirin (aspirin 81 mg Oral EC Tab) atorvastatin (atorvastatin 40 mg Tab) dapagliflozin metoprolol sacubitril-valsartan (Entresto 24 mg-26 mg oral tablet) tadalafil (Cialis 10 mg Tab) terazosin (terazosin 10 mg Cap) Procedure History Colonoscopic polypectomy (05/14/2023), Fluoroscopic guidance for cardiac ablation (08/2022), Repair of right inguinal hernia. Discharge Vitals Temperature (Temporal Artery) 36.8 ?C Heart Rate (Monitored) 76 Respiratory Rate 16 Blood Pressure 117/71 Height 175 cm Weight 103.9 kg BMI 33.93 What to do next Instructions From Your Doctor Event Name Event Result Discharge Instructions Freetext may shower tomorrow, remove dressings and leave open to air; no tub baths for 10 days; take ibuprofen as needed for pain. Discharge Activity Resume normal activities in 24 hours, Arrange for a responsible adult supervision for 24 hours Discharge Restrictions No driving for 24 hrs, Do not operate machinery or tools, Do not make important decisions for 24 hours, Do not drink alcoholic beverages for 24 hours Discharge Diet(s) Regular Call Your Doctor For Persistent or heavy bleeding, Temperature above 101.5 degrees, Redness, swelling, or pus at operative site, Severe pain at the operative site, Persistent vomiting Wound Care Keep incision dry, Remove dressing as instructed Remove Dressing On 1 Pharmacy Information [facility] Discharge Instructions Discharge Instructions Previously Scheduled Follow-Up Appointments Wednesday 8:00 AM EST With: Benton CARL MD Where: [facility] Comment on above: Result Comment: Elec tronically Signed By: Andrea MCKEON, Roseanna\.mikey\Date and Time Signed: 05/14/23 09:03 EST Inpatient Patient Summaryon 05-14-2023 Inpatient Patient Summary [place] [id number] [facility] Clinical Discharge Instructions PERSON INFORMATION Name: SUJATA REYNA [facility]#:[id number] PHYSICIANS Admitting Physician: Eduardo REINOSO MD Attending Physician: Eduardo REINOSO MD PCP: Mikala MOLINA, Josh Discharge Diagnosis: Encounter for colorectal cancer screening; Encounter for screening for malignant neoplasm of rectum; Lipoma of back; Neoplasm of uncertain behavior of skin of thigh Comment: PATIENT EDUCATION INFORMATION Instructions: Medication Leaflets: Follow up: With: Address: When: Eduardo REINOSO [address] [facility], [facility] [address] [place] [address] ParkingCarma (1) Within 7 to 10 days Type Location Start Finish State [facility] Office Visit [facility] [place] 09/03/2023 8:00 AM 09/03/2023 8:15 AM Confirmed MEDICATION LIST Medications to Continue with No Changes Other Medications aspirin (aspirin 81 mg Oral EC Tab) 1 Tablets By Mouth every day. atorvastatin (atorvastatin 40 mg Tab) 1 Tablets By Mouth every day. dapagliflozin 10 Milligram By Mouth every day. metoprolol 100 Milligram By Mouth every day. sacubitril-valsartan (Entresto 24 mg-26 mg oral tablet) 1 Tablets By Mouth 2 times a day. tadalafil (Cialis 10 mg Tab) 1 Tablets By Mouth As Directed as needed for erectile dysfunction. Refills: 2. terazosin (terazosin 10 mg Cap) 1 Capsules By Mouth every day. Refills: 3. Comment: Normal [facility] Main OR PACU I Recordon 04-28 Main OR PACU I Record PACU Phase I Document Type FT Summary Primary Physician: Eduardo REINOSO MD Finalized Date/Time: 05/14/23 09:48:44 Pt. Name: SUJATA REYNA /Sex: 1975 Male Med Rec #: [id number] Physician: Eduardo REINOSO MD Financial #: [id number] Pt. Type: O Room/Bed: / Admit/Disch: 05/14/23 06:49:57 - Institution: Case Times PACU I FT Pre-Care Text: Identifies barriers to communication and implements measures to provide psychological support Develops individualized plan of care, and ensures continuity of care Maintains patient's dignity and privacy, and maintains patient confidentiality Identifies and reports philosophical, cultural, and spiritual beliefs and values Identifies individual values and wishes concerning care Implements aseptic technique, and administers prescribed antibiotic therapy and immunizing agents as ordered Evaluates postoperative tissue perfusion Implements thermoregulation measures, and monitors body temperature Evaluates postoperative respiratory status Evaluates postoperative cardiac status Evaluates postoperative neurological status Assesses pain control, collaborated in initiating patient-controlled analgesia and implements alternative methods of pain control Verifies allergies, administers prescribed medications and solutions, evaluates response to medications Entry 1 In PACU I 05/14/23 08:55:00 Discharge from PACU 05/14/23 09:25:00 I Outcomes Met? Yes Last Modified By: Roseanna Mnedez RN 05/14/23 09:25:06 Post-Care Text: The patient demonstrates knowledge of the expected response to the operative or invasive procedure The patient's care is consistent with the individualized perioperative plan of care The patient's right to privacy is maintained The patient's value system, lifestyle, ethnicity, and culture are considered, respected, and incorporated into the perioperative plan of care The patient participates in decisions affecting his or her perioperative plan of care The patient is free from signs and symptoms of infection The patient has wound/tissue perfusion consistent with or improved from baseline levels established preoperatively The patient is at or returning to normothermia at the conclusion of the immediate postoperative period The patient's respiratory function is consistent with or improved from baseline levels established preoperatively The patient's cardiovascular status is consistent with or improved from baseline levels established preoperatively The patient's cardiovascular status is consistent with or improved from baseline levels established preoperatively The patient demonstrates and/or reports adequate pain control throughout the perioperative period The patient received appropriate medication(s), safely administered during the perioperative period Acuity Level PACU I FT Entry 1 Start Time 05/14/23 08:55:00 Stop Time 05/14/23 09:25:00 Acuity Level Acuity Level I Last Modified By: Roseanna Mendez RN 05/14/23 09:25:22 Finalized By: Roseanna Mendez RN Document Signatures Signed By: Roseanna Mendez RN 05/14/23 09:25 Roseanna Mendez RN 05/14/23 09:48 Rohan [facility] Main OR Preoperative Recordo n 05-14-2023 Main OR Preoperative Record Holding Area Document Type FT Summary Primary Physician: Eduardo REINOSO MD Finalized Date/Time: 05/14/23 06:58:55 Pt. Name: SUJATA REYNA /Sex: 1975 Male Med Rec #: [id number] Physician: Eduardo REINOSO MD Financial #: [id number] Pt. Type: O Room/Bed: / Admit/Disch: 05/14/23 06:49:57 - Institution: Case Times Holding FT Pre-Care Text: Verifies consent for planned procedure, identifies individual values and wishes concerning care, includes family members in perioperative teaching Secures patient's records' belongings, and valuables, maintains patient's dignity and privacy, and maintains patient confidentiality Entry 1 In Holding 05/14/23 06:53:00 Outcomes Met? Yes Last Modified By: Sophia Membreno RN 05/14/23 06:57:49 Post-Care Text: The patient participates in decisions affecting his or her perioperative plan of care The patient's right to privacy is maintained Surgery Checklist FT Entry 1 Patient Birthday, ID Band Procedure History and Physical, Identification: Check, Patient Verification: Surgical Consent, With Participation Patient NPO after Midnight: Yes Date/Time: 05/14/23 02:00:00 Personal Items: Jewelry Personal Items rubber wedding band, Comment: clothes, shoes, loop recorder Limitations: n/a Complaints of Pain: No Pain Comment: denies Operative Site n/a Marking: Marked By: n/a Availability Equipment Verified: Does Patient Smoke No Patient states Yes Comment - Adult - Ashly postop adult Supervision supervision available Case Cancelled in No Holding Area see comments below for reason Last Modified By: Sophia Membreno RN 05/14/23 06:58:52 General Comments: Pt finished colon prep at 0200, states stool is clear liquid yellow /,RN Finalized By: Sophia Membreno RN Document Signatures Signed By: Sophia Membreno RN 05/14/23 06:58 Normal [facility] Monitor Recordon 05-14-2023 Monitor Record [id number] TIFF Normal [facility] Outpatient Surgery Discharge Instructionon 05-14-2023 Outpatient Surgery Discharge Instruction [place] [id number] Patient Discharge Instructions PERSON INFORMATION Name: SUJATA REYNA Date of : 1975 Current Date: 05/14/2023 08:58:25 PHYSICIANS Admitting Physician: Eduardo REINOSO MD Discharge Diagnosis: Encounter for colorectal cancer screening; Encounter for screening for malignant neoplasm of rectum; Lipoma of back; Neoplasm of uncertain behavior of skin of thigh SUJATA REYNA has been given the following list of follow-up instructions, prescriptions, and patient education materials: PATIENT FOLLOW-UP INFORMATION Diet: Regular Discharge Activity: Resume normal activities in 24 hours, Arrange for a responsible adult supervision for 24 hours Discharge Restrictions: No driving for 24 hrs, Do not operate machinery or tools, Do not make important decisions for 24 hours, Do not drink alcoholic beverages for 24 hours Call Your Doctor For: Persistent or heavy bleeding, Temperature above 101.5 degrees, Redness, swelling, or pus at operative site, Severe pain at the operative site, Persistent vomiting Wound Care Instructions: Keep incision dry, Remove dressing as instructed Remove Your Dressing In 1 Days Additional Instructions: may shower tomorrow, remove dressings and leave open to air; no tub baths for 10 days; take ibuprofen as needed for pain. IF UNABLE TO CONTACT YOUR PHYSICIAN AND YOU FEEL IT IS AN EMERGENCY, GO TO THE NEAREST EMERGENCY ROOM OR CALL 911 I, SUJATA REYNA, have received the attached patient education materials/instructions and have verbalized understanding: May we do a follow up call? Yes No I was present when discharge instructions were given Patient Signature Date Clinican/Nurse Signature _ Date Follow up: With: Address: When: Eduardo Umana, [address], [facility] [address] [place] [id number] Business (1) Within 7 to 10 days Type Location Start Finish State URO Office Visit [facility] TAMMY Ambrose 09/03/2023 8:00 AM 09/03/2023 8:15 AM [facility] You may receive a survey from Nolberto Giraldo asking you to rate your care experience. Your feedback is important and will help us understand what we do well and how we can improve the quality of care we provide to you, your loved ones and our community. It?s an honor to serve you. Thank you for choosing [facility] HERE ARE THE MEDICATION CHANGES THAT OCCURRED DURING YOUR HOSPITAL STAY Medications to Continue with No Changes Other Medications aspirin (aspirin 81 mg Oral EC Tab) 1 Tablets By Mouth every day. atorvastatin (atorvastatin 40 mg Tab) 1 Tablets By Mouth every day. dapagliflozin 10 Milligram By Mouth every day. metoprolol 100 Milligram By Mouth every day. sacubitril-valsartan (Entresto 24 mg-26 mg oral tablet) 1 Tablets By Mouth 2 times a day. tadalafil (Cialis 10 mg Tab) 1 Tablets By Mouth As Directed as needed for erectile dysfunction. Refills: 2. terazosin (terazosin 10 mg Cap) 1 Capsules By Mouth every day. Refills: 3. PATIENT EDUCATION INFORMATION Instructions: Medication Leaflets: Normal [facility] Patient Education - Texton 1 07-14-2022 Patient Education - Text Diverticulosis Many people have small pouches in their colon called diverticulum. The diverticulum bulge outward through weak spots in the colon. You could have one or more of these pouches in the colon. The condition of having these pouches in the colon is called diverticulosis or diverticular disease. Diverticulosis is usually diagnosed by tests to evaluate something else. For example, you may have had a colonoscopy to screen for colon cancer when the diverticulosis was found. Most people with diverticulosis do not have any discomfort or problems. If symptoms develop, they may include mild cramps, bloating, and constipation. A complication of this condition is called diverticulitis. This is when the diverticulum become inflamed and infected. How to treat diverticulosis: Increasing the amount of fiber in the diet may reduce symptoms of diverticulosis and prevent complications such as diverticulitis (infected diverticuli). Fiber keeps stool soft and lowers pressure inside the colon so that bowel contents can move through easily. You should eat 20 to 35 grams of fiber each day. The table below shows the amount of fiber in some foods that you can easily add to your diet. Adding fiber slowly may decrease the bloating and fullness sometimes felt with an immediate high fiber diet. The doctor may also recommend taking a fiber product such as Citrucel or Metamucil once a day. In the past people with diverticulosis were to avoid nuts, corn, and seeds. This has not been found to be true. If you find that certain foods create cramping or bloating, avoid that food. Foods high in fiber include: Fresh fruits, fresh vegetables, legumes (beans), whole wheat bread, bran muffins or cereal, and nuts. See the table below for examples of high fiber foods. Remember, your goal is 20-35 grams per day. Amount of fiber in different foods Food Serving Grams of fiber Fruits Apple (with skin) 1 medium apple 4.4 Banana 1 medium banana 3.1 Oranges 1 orange 3.1 Prunes 1 cup, pitted 12.4 Juices Apple, unsweetened, w/added ascorbic acid 1 cup 0.5 Grapefruit, white, canned, sweetened 1 cup 0.2 Grape, unsweetened, w/added ascorbic acid 1 cup 0.5 Greig 1 cup 0.7 Vegetables Cooked Green beans 1 cup 4.0 Carrots 1/2 cup sliced 2.3 Peas 1 cup 8.8 Potato (baked, with skin) 1 medium potato 3.8 Raw Wittmann (with peel) 1 cucumber 1.5 Lettuce 1 cup shredded 0.5 Tomato 1 medium tomato 1.5 Spinach 1 cup 0.7 Legumes Baked beans, canned, no salt added 1 cup 13.9 Kidney beans, canned 1 cup 13.6 Zaidi beans, canned 1 cup 11.6 Lentils, boiled 1 cup 15.6 Breads, pastas, flours Bran muffins 1 medium muffin 5.2 Oatmeal, cooked 1 cup 4.0 White bread 1 slice 0.6 Whole-wheat bread 1 slice 1.9 Pasta and rice, cooked Macaroni 1 cup 2.5 Rice, brown 1 cup 3.5 Rice, white 1 cup 0.6 Spaghetti (regular) 1 cup 2.5 Nuts Almonds 1/2 cup 8.7 Peanuts 1/2 cup 7.9 [facility] SEEK IMMEDIATE MEDICAL CARE IF: You develop abdominal (belly) pain. An oral temperature above _ 101? F__develops. Repeated vomiting occurs. Blood is being passed in stools (bright red or black tarry stools). You develop any bowel problems or changes which you have not had before. Extra Information: To learn how much fiber and other nutrients are in different foods, visit the [place] Department of Agriculture (USDA) National Nutrient Database at: http://www.nal.usda.gov /fnic/foodcomp/search/ Created using data from the USDA National Nutrient Database for Standard Reference. Available at http://www.nal.usda.gov /fnic/foodcomp/search/. Information adapted from: ExitCare? Patient Information ?2009 Telly, [employer]. UpToDate 2012 http://www.[employer] /contents/diverticular- dtkzdmq-netwas-hjz-basi cs Normal [facility] Orders Onlyon 05-11-2023 Orders Only [id number] Sujata Reyna 1975 M Date Provider Department Center 05/11/2023 Benjamin-MARIE KINNEY . No family history on file Normal [facility] Insurance Correspondenceon 1 07-06-2022 Insurance Correspondence [id number] TIFF Normal [facility] Telemedicineon 05-04-2023 Telemedicine [id number] Sujata Reyna Bridgette 1975 M Date Provider Department Center 05/04/2023 Sam-RISHABH BURKETT [facility] No family history on file Level of Service:32198 [place] PHYS/QHP TELEPHONE EVALUATION 11-20 MIN [facility] Office Visiton 04-23-2023 Follow-up visit [id number] Sujata Reyna Bridgette 1975 M Date Provider Department Center 04/23/2023 Benjamin-MARIE KINNEY [facility] No family history on file Level of Service:90796 [place] OFFICE/OUTPATIENT ESTABLISHED MOD MDM 30-39 MIN [facility] Consent for Procedure/Surger yon 04-15-2023 Consent for Procedure/Surgery [id number] IFF Normal [facility] Ambulatory Visit Summaryon 1 Ambulatory Visit Summary SUJATA REYNA Bridgette :1975 Visit Date:04/14/2023 Ambulatory Visit Instructions Your Care Team Attending Physician - KEMAR MOLINA, Eduardo Zurita Primary Care Physician - Josh Bach MD Referring Physician - Josh Bach MD This Is Your Medications List Contact prescribing physician if questions or concerns aspirin (aspirin 81 mg Oral EC Tab) atorvastatin (atorvastatin 40 mg Tab) dapagliflozin metoprolol sacubitril-valsartan (Entresto 24 mg-26 mg oral tablet) tadalafil (Cialis 10 mg Tab) terazosin (terazosin 10 mg Cap) Procedures Performed Fluoroscopic guidance for cardiac ablation (08/2022), Repair of right inguinal hernia. Discharge Vitals Heart Rate (Peripheral) 72 Respiratory Rate 16 Blood Pressure 118/84 Height 175 cm Height 69 in Weight 103.9 kg Weight 228.58 lb BMI 33.93 What to do next Scheduled Follow-Up Appointments Wednesday 9:00 AM EST With: Where: [facility] Surgical Services Wednesday 8:00 AM EST With: Benton CARL MD Where: [facility] Office Visiton 03-23-2023 Follow-up visit [id number] Sujata Reyna 1975 M Date Provider Department [place] 03/23/2023 TamikoMADELAINE, RISHABH [facility] No family history on file Level of Service:53060 [place] OFFICE/OUTPATIENT ESTABLISHED MOD [facility] 30-39 MIN [facility] Physician Referralon 023 Physician Referral [id number] :127 [facility] Office Visiton 11-13-2022 Follow-up visit [id number] Sujata Reyna 1975 M [facility] Provider Department Center 11/13/2022 MARIE DAVIS [facility] No family history on file Level of Service:76763 [place] OFFICE/OUTPATIENT ESTABLISHED MOD [facility] 30-39 MIN [facility] HPon 11-05-2022 H&P reviewed. The patient was examined and there are no changes to the H&P. [facility] NURSNOTEon 11-05-2022 NURSNOTE RN educated pt on d/ c instructions. RN encouraged pt to voice any questions or concerns. Pt verbalizes no questions or concerns at this time. Pt was wheeled off of unit with all of belongings. [facility] HPon 10-20-2022 [facility] Electrophysiology Consult Note [facility] Reason for visit: NSVT s/p EP study without ablation HPI: Patient for follow-up s/p EP study/01/17. 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 Post ablation patient continued to have symptoms of palpitations, and an event monitor placed due to being admitted at [facility] for chest discomfort and acute PE. Event monitor revealed NSVT with symptoms of dizziness. He had reduced EF with AVNRT but now EF has improved. He was then taken to EP lab for V stim to induce an SVT for possible ablation. There is no inducible VT or tachycardia. There was presence of retrograde concealed accessory pathway in the left lateral location which was not pursued due to no tachycardia being induced. Catheter movement would induce a flutter as well as A-fib which self terminated on its own. Patient continues to experience palpitations although less frequently than before. But he has experience of palpitations with lightheadedness. I discussed with him because his symptoms are persisting we should continue to move forward with a loop monitor insertion to monitor palpitations for VT/SVTs --------- Previous 08/[address] burkett HPI: Sujata Reyna is a 47 y.o. year old with past medical history of hypertension and recent admission to an outside hospital due to palpitations. Nearly 3 weeks ago the patient had an episode of chest tightness and fluttering, this was associated with lightheadedness and presyncopal symptoms. He was admitted at an outside hospital, his EKG was showing left bundle branch block and he had an echocardiogram and stress test done as an outpatient, echo is showing an EF of 45 to 50% with abnormal septal motion. stress test was showing areas of moderate severity perfusion abnormalities in anterior wall. Patient continues to report increased dyspnea recently, no orthopnea, no paroxysmal nocturnal dyspnea. Patient underwent heart cath and was unremarkable. EP study was done by Dr Blas and a intermediate RP tachycardia was induced. No ventricular overdrive pacing was performed to differentiate between SVT. Radiofrequency ablation of slow pathway was performed and he was discharged. Ventricular stimulation for VT was not done. Since his discharge from [facility], he was admitted to [facility] for chest pain. He was found to have an acute PE and was started on Eliquis. BLE doppler showed small nonocclusive right femoral vein thrombus. He also noted that he had also traveled down to [place] via car the few days prior to episode. Since his admission at [facility] last week, he has been feeling better. Chest pain is intermittent but improved. He denies dyspnea,He had an event monitor placed and this revealed NSVT again with symptoms of dizziness. ( Strips attached) PMH- HTN PSH- no pertinent cardiac procedures/surgery FMH- Father passed 48 yo aneurysm- (back of neck), HTN; Social- Former smoker 17 yrs- 1 PPD, quit in 2008, Social- beer here and there; denied illicit drug use Review of Systems Constitutional: Negative for chills, decreased appetite, fever, malaise/fatigue and weight gain. Cardiovascular: Positive for palpitations/lightheade dness. Negative for claudication, dyspnea on exertion, irregular heartbeat, leg swelling, near-syncope, orthopnea, palpitations, paroxysmal nocturnal dyspnea and syncope. Respiratory: Negative for cough, shortness of breath and wheezing. PMH: Past Medical History: Diagnosis Date Hypertension PSH: Past Surgical History: Procedure Laterality Date HERNIA REPAIR SH: Social Determinants of Health Tobacco Use: Medium Risk Smoking Tobacco Use: Former Smokeless Tobacco Use: Never Passive Exposure: Past Alcohol Use: Not on file Financial Resource Strain: Low Risk Difficulty of Paying Living Expenses: Not hard at all Food Insecurity: Unknown Worried About Running Out of Food in the Last Year: Never true Ran Out of Food in the Last Year: Not on file Transportation Needs: Unknown Lack of Transportation (Medical): No Lack of Transportation (Non-Medical): Not on file Physical Activity: Not on file Stress: Not on file Social Connections: Not on file Intimate Partner Violence: Unknown Fear of Current or Ex-Partner: No Emotionally Abused: Not on file Physically Abused: Not on file Sexually Abused: Not on file Depression: Not on file Housing Stability: Unknown Unable to Pay for Housing in the Last Year: Not on file Number of Places Lived in the Last Year: Not on file Unstable Housing in the Last Year: No Allergies: No Known Allergies Weight: 104kg Visit Vitals BP 152/70 (BP Location: Left arm, Patient Position: Sitting) Pulse 87 Ht 1.753 m (5' 9 ) Wt 104 kg (230 lb) SpO2 95% BMI 33.97 kg/m??? Smoking Status Former BSA 2.25 m??? Meds: (more content not included)... [facility] Office Visiton 10-20-2022 Follow-up visit [id number] Sujata Reyna 1975 M Date Provider Department Center 10/20/2022 Benjamin-BIBMARIE GENTILE [facility] No family history on file Level of Service:29956 [place] OFFICE/OUTPATIENT ESTABLISHED MOD MDM 30-39 MIN Reason for Visit and Comments: Follow-up [451861] Fatigue [46] Results [95] - 30 day monitor post EP procedure. Normal [facility] HPon 10-02-2022 H&P reviewed. The patient was examined and there are no changes to the H&P. Normal [facility] MRI ABDOMEN WO W CONon 09-28 MRI ABDOMEN WO W CON EXAMINATION: MRI ABDOMEN WO W CON HISTORY: Ct of chest abnormal ; right hepatic lobe hyperdensity COMPARISON: No relevant comparison available. TECHNIQUE: A comprehensive examination was performed utilizing a variety of imaging planes and imaging parameters to optimize visualization of suspected pathology. Images were obtained both before and after intravenous Dotarem infusion. FINDINGS: LIVER: Diffuse fatty infiltration. No suspicious enlargement, atrophy, focal abnormal signal, or significant lesion. BILIARY: No visible dilatation or calcification. PANCREAS: No lesion, fluid collection, ductal dilatation, or atrophy. SPLEEN: No enlargement or focal lesion. KIDNEYS: No mass or obstruction. ADRENALS: No mass or enlargement. AORTA/VASCULAR: No aneurysm or dissection. RETROPERITONEUM: No mass or adenopathy. BOWEL/MESENTERY: No visible mass, obstruction, or bowel wall thickening. ABDOMINAL WALL: No mass or hernia. BONES: No bony lesion or fracture. LUNG BASES: No visible pleural disease. Lung bases not well assessed with MRI. OTHER: Negative. IMPRESSION: 1. Fatty infiltration of the liver. No focal lesion or abnormal enhancement. Findings on recent CT study likely secondary to early contrast phase.. Electronically authenticated by: TRIPP CAMPO Date: 2022-09-28 08:56 [facility] Electrophysiology Consult Note Date of Telehealth Visit: 09/25/22 The patient was notified that using 3rd democrat telecommunication application (e.g., Purchext) is not HIPPA compliant and may carry some privacy risks. Yes The visit was conducted [id number] with the use of audio and video technology Doxy.me between patient and provider for a virtual visit. Verbal consent to provide and bill this service was obtained on 09/25/22 . No signature was obtained due to the COVID-19 pandemic. Patient Location: Patient Home I spent 22 minutes of total time on the day of the visit. This time was spent preparing for the visit, obtaining and reviewing any outside history/data, taking a history, performing an exam/evaluation, counseling and educating patient/family about the diagnosis and plan, performing medical decision making, referring to and communicating with other health care referrals, independently interpreting results and documenting in the EMR, and coordinating care. Please see the additional documentation in this note for specific details. Reason for visit: NSVT HPI: Sujata Reyna is a 47 y.o. year old with past medical history of hypertension and recent admission to an outside hospital due to palpitations. Nearly 3 weeks ago the patient had an episode of chest tightness and fluttering, this was associated with lightheadedness and presyncopal symptoms. He was admitted at an outside hospital, his EKG was showing left bundle branch block and he had an echocardiogram and stress test done as an outpatient, echo is showing an EF of 45 to 50% with abnormal septal motion. stress test was showing areas of moderate severity perfusion abnormalities in anterior wall. Patient continues to report increased dyspnea recently, no orthopnea, no paroxysmal nocturnal dyspnea. Patient underwent heart cath and was unremarkable. EP study was done by Dr Blas and a intermediate RP tachycardia was induced. No ventricular overdrive pacing was performed to differentiate between SVT. Radiofrequency ablation of slow pathway was performed and he was discharged. Ventricular stimulation for VT was not done. Since his discharge from [facility], he was admitted to [facility] for chest pain. He was found to have an acute PE and was started on Eliquis. BLE doppler showed small nonocclusive right femoral vein thrombus. He also noted that he had also traveled down to [place] via car the few days prior to episode. Since his admission at [facility] last week, he has been feeling better. Chest pain is intermittent but improved. He denies dyspnea,He had an event monitor placed and this revealed NSVT again with symptoms of dizziness. ( Strips attached) PMH- HTN PSH- no pertinent cardiac procedures/surgery FMH- Father passed 48 yo aneurysm- (back of neck), HTN; Social- Former smoker 17 yrs- 1 PPD, quit in 2008, Social- beer here and there; denied illicit drug use Review of Systems Constitutional: Negative for chills, decreased appetite, fever, malaise/fatigue and weight gain. Cardiovascular: Positive for chest pain. Negative for claudication, dyspnea on exertion, irregular heartbeat, leg swelling, near-syncope, orthopnea, palpitations, paroxysmal nocturnal dyspnea and syncope. Respiratory: Negative for cough, shortness of breath and wheezing. PMH: Past Medical History: Diagnosis Date Hypertension PSH: Past Surgical History: Procedure Laterality Date HERNIA REPAIR SH: Social Determinants of Health Tobacco Use: Medium Risk Smoking Tobacco Use: Former Smokeless Tobacco Use: Never Passive Exposure: Past Alcohol Use: Not on file Financial Resource Strain: Low Risk Difficulty of Paying Living Expenses: Not hard at all Food Insecurity: Unknown Worried About Running Out of Food in the Last Year: Never true Ran Out of Food in the Last Year: Not on file Transportation Needs: Unknown Lack of Transportation (Medical): No Lack of Transportation (Non-Medical): Not on file Physical Activity: Not on file Stress: Not on file Social Connections: Not on file Intimate Partner Violence: Unknown Fear of Current or Ex-Partner: No Emotionally Abused: Not on file Physically Abused: Not on file Sexually Abused: Not on file Depression: Not on file Housing Stability: Unknown Unable to Pay for Housing in the Last Year: Not on file Number of Places Lived in the Last Year: Not on file Unstable Housing in the Last Year: No Allergies: No Known Allergies Weight: No weight available Visit Vitals Smoking Status Former Meds: Current Outpatient Medications on File Prior to Visit Medication Sig Dispense Refill atorvastatin (Lipitor) 40 mg tablet Take 1 tablet (40 mg) by mouth at bedtime. 90 tablet 3 benzonatate (Tessalon) 200 mg capsule TAKE 1 CAPSULE BY MOUTH THREE TIMES A DAY NEEDED Coricidin HBP Chest Nathaniel-Cough 10-200 mg capsule TAKE 1 CAPSULE BY MOUTH FOUR TIMES A DAY dapagliflozin (Farxiga) 10 mg Ta (more content not included)... [facility] Orders Onlyon 09-25-2022 Orders Only [id number] Sujata Reyna 1975 M Date Provider Department Center 09/25/2022 ISA LOO [facility] No family history on file Normal [facility] Telemedicineon 09-25-2022 Telemedicine [id number] Sujata Reyna Bridgette 1975 M Date Provider Department Center 09/25/2022 [facility] Hos No family history on file Level of Service:40517 [place] PHYS/QHP TELEPHONE EVALUATION 21-30 MIN Normal [facility] XR FOREIGN BODY EYEon 2022 XR FOREIGN BODY EYE EXAMINATION: XR FORE IGN BODY EYE HISTORY: Foreign body in eye COMPARISON: No relevant comparison available. FINDINGS: ORBITS: Negative for a metallic foreign body. OTHER: Negative. IMPRESSION: No metallic foreign body in the orbits Electronically authenticated by: TERESSA BRIDGES Date: 2022-09-25 07:59 Normal [facility] Follow-Upon 09-14-2022 Follow-Up [id number] Sujata Reyna 1975 M Date Provider Department Center 09/14/2022 [facility] No family history on file Level of Service:12659 [place] OFFICE/OUTPATIENT ESTABLISHED MOD MDM 30-39 MIN Reason for Visit and Comments: Hospital Follow-up [832] - Pt states that he was admitted to [facility] from 09/10-09/12 for an Ablation, tacky cardia , had some clots in right lower lung,also had echo completed Normal [facility] CBC AUTO DIFFon 09-12-2022 BASO # 0.0 103/ul Normal 0.0-0.1 [facility] Comment on above: Performed By: #### H STROPN, TSH, BNP, BMP #### [facility] [address] [address] [address] Ivan Seo Basophils/100 WBC (Bld) 0.3 % Normal 0.2-2.0 [facility] Comment on above: Performed By: #### H STROPN, TSH, BNP, BMP #### [facility] [address] [address] [address] Ivan Seo EO # 0.0 103/ul Normal 0.0-0.7 [facility] Comment on above: Performed By: #### H STROPN, TSH, BNP, BMP #### [facility] [address] [address] [address] Ivan Seo Eosinophils/100 WBC (Bld) 0.3 % Critically low 0.9-7.0 [facility] Comment on above: Performed By: #### H STROPN, TSH, BNP, BMP #### [facility] [address] [address] [address] Ivan Seo Erythrocyte distribution width (RBC) [Ratio] 12.7 % Normal 11.0-15.0 [facility] Comment on above: Performed By: #### H STROPN, TSH, BNP, BMP #### [facility] [address] [place] [address] Dr. Ivan Seo Hematocrit (Bld) [Volume fraction] 32.9 % Critically low 42.0-54.0 [facility] Comment on above: Performed By: #### H STROPN, TSH, BNP, BMP #### [facility] [address] [place] [address] Dr. Ivan Seo Hemoglobin (Bld) [Mass/Vol] 11.5 g/dL Critically low 14.0-18.0 [facility] Comment on above: Performed By: #### H STROPN, TSH, BNP, BMP #### [facility] [address] [place] [address] Dr. Ivan Seo IG # 0.13 10e3/ul Critically high 0.00-0.03 [facility] Comment on above: Performed By: #### H STROPN, TSH, BNP, BMP #### [facility] [address] [place] [address] Dr. Ivan Seo IG % 1.0 % Critically high 0.0-0.5 [facility] Comment on above: Performed By: #### H STROPN, TSH, BNP, BMP #### [facility] [address] [place] [address] Dr. Ivan Seo LYMPH # 2.1 103/ul Normal 1.2-3.8 [facility] Comment on above: Performed By: #### H STROPN, TSH, BNP, BMP #### [facility] [address] [place], [place] [id number] Dr. Ivan Seo Lymphocytes/100 WBC (Bld) 15.6 % Critically low 20.5-60.0 [facility] Comment on above: Performed By: #### H STROPN, TSH, BNP, BMP #### [facility] [address] [place] [address] Dr. Ivan Seo MANUAL DIFF REQ NO Normal [facility] Comment on above: Performed By: #### H STROPN, TSH, BNP, BMP #### [facility] [address] [place] [address] Dr. Ivan Seo MCH (RBC) [Entitic mass] 31.3 pg Normal 25.9-34.0 [facility] Comment on above: Performed By: #### H STROPN, TSH, BNP, BMP #### [facility] [address] [place] [address] Dr. Ivan Seo MCHC (RBC) [Mass/Vol] 35.0 g/dL Normal 29.9-35.2 [facility] Comment on above: Performed By: #### H STROPN, TSH, BNP, BMP #### [facility] [address] [place] [address] Dr. Ivan Seo MCV (RBC) [Entitic vol] 89.4 fL Normal 80.0-94.0 [facility] Comment on above: Performed By: #### H STROPN, TSH, BNP, BMP #### [facility] [address] [place] [address] Dr. Ivan Seo MONO # 1.2 103/ul Critically high 0.3-0.8 [facility] Comment on above: Performed By: #### H STROPN, TSH, BNP, BMP #### [facility] [address] [place] [address] Dr. Ivan Seo Monocytes/100 WBC (Bld) 9.1 % Normal 1.7-12.0 [facility] Comment on above: Performed By: #### H STROPN, TSH, BNP, BMP #### [facility] [address] [place] [address] Dr. Ivan Seo NEUT # 9.9 103/ul Critically high 1.4-6.5 [facility] Comment on above: Performed By: #### H STROPN, TSH, BNP, BMP #### [facility] [address] [address] [address] Ivan Seo Neutrophils/100 WBC (Bld) 73.7 % Normal 43.0-75.0 [facility] Comment on above: Performed By: #### H STROPN, TSH, BNP, BMP #### [facility] [address] [address] [address] Ivan Seo Platelet mean volume (Bld) [Entitic vol] 8.9 fL Critically low 9.5-13.5 [facility] Comment on above: Performed By: #### H STROPN, TSH, BNP, BMP #### [facility] [address] [address] [address] Ivan Seo PLT 264 103/ul Normal 150-450 [facility] Comment on above: Performed By: #### H STROPN, TSH, BNP, BMP #### [facility] [address] [place] [address] Dr. Ivan Seo RBC 3.68 106/ul Critically low 4.70-6.10 [facility] Comment on above: Performed By: #### H STROPN, TSH, BNP, BMP #### [facility] [address] [place] [address] Dr. Ivan Seo WBC 13.4 103/ul Critically high 4.0-11.0 [facility] Comment on above: Performed By: #### H STROPN, TSH, BNP, BMP #### [facility] [address] [place] [address] Dr. Ivan Seo PROF 14(COMP METB)on 023 Albumin [Mass/Vol] 3.1 g/dL Critically low 3.4-5.0 [facility] Comment on above: Performed By: #### H STROPN, TSH, BNP, BMP #### [facility] [address] [address] [address] Ivan Seo Albumin/Globulin [Mass ratio] 0.8 {ratio} Normal [facility] Comment on above: Performed By: #### H STROPN, TSH, BNP, BMP #### [facility] [address] [address] [address] Ivan Seo ALP [Catalytic activity/Vol] 81 U/L Normal 46-116 [facility] Comment on above: Performed By: #### H STROPN, TSH, BNP, BMP #### [facility] [address] [place] [address] Dr. Ivan Seo ALT [Catalytic activity/Vol] 43 U/L Normal 16-63 [facility] Comment on above: Performed By: #### H STROPN, TSH, BNP, BMP #### [facility] [address] [place] [address] Dr. Ivan Seo Anion gap [Moles/Vol] 11.7 mmol/L Normal [facility] Comment on above: Performed By: #### H STROPN, TSH, BNP, BMP #### [facility] [address] [place] [address] Dr. Ivan Seo AST [Catalytic activity/Vol] 18 U/L Normal 15-37 [facility] Comment on above: Performed By: #### H STROPN, TSH, BNP, BMP #### [facility] [address] [place] [address] Dr. Ivan Seo Bilirubin [Mass/Vol] 0.5 mg/dL Normal 0.2-1.0 [facility] Comment on above: Performed By: #### H STROPN, TSH, BNP, BMP #### [facility] [address] [place] [address] Dr. Ivan Seo Calcium [Mass/Vol] 8.9 mg/dL Normal 8.5-10.1 [facility] Comment on above: Performed By: #### H STROPN, TSH, BNP, BMP #### [facility] [address] [place] [address] Dr. Ivan Seo Chloride [Moles/Vol] 106 mmol/L Normal 98-107 [facility] Comment on above: Performed By: #### H STROPN, TSH, BNP, BMP #### [facility] [address] [address] [address] Ivan Seo CO2 [Moles/Vol] 27.7 mmol/L Normal 21.0-32.0 [facility] Comment on above: Performed By: #### H STROPN, TSH, BNP, BMP #### [facility] [address] [place] [address] Dr. Ivan Seo Creatinine [Mass/Vol] 0.75 mg/dL Normal 0.70-1.30 [facility] Comment on above: Performed By: #### H STROPN, TSH, BNP, BMP #### [facility] [address] [address] [address] Ivan Seo EGFR-AF DJIBOUTIAN >60 Normal >=60 [facility] Comment on above: Performed By: #### H STROPN, TSH, BNP, BMP #### [facility] [address] [place] [address] Dr. Ivan Soe EGFR-NON AF DJIBOUTIAN >60 Normal >=60 [facility] Comment on above: Performed By: #### H STROPN, TSH, BNP, BMP #### [facility] [address] [place] [address] Dr. Ivan Seo Globulin (S) [Mass/Vol] 3.8 g/dL Normal [facility] Comment on above: Performed By: #### H STROPN, TSH, BNP, BMP #### [facility] [address] [place] [address] Dr. Ivan Seo Glucose [Mass/Vol] 100 mg/dL Normal 74-[address] [facility] Comment on above: Performed By: #### H STROPN, TSH, BNP, BMP #### [facility] [address] [place] [address] Dr. Ivan Seo Potassium [Moles/Vol] 3.4 mmol/L Critically low 3.5-5.1 [facility] Comment on above: Performed By: #### H STROPN, TSH, BNP, BMP #### [facility] [address] [place] [address] Dr. Ivan Seo Protein [Mass/Vol] 6.9 g/dL Normal 6.4-8.[address] [facility] Comment on above: Performed By: #### H STROPN, TSH, BNP, BMP #### [facility] [address] [place] [address] Dr. Ivan Seo Sodium [Moles/Vol] 142 mmol/L Normal 136-[address] [facility] Comment on above: Performed By: #### H STROPN, TSH, BNP, BMP #### [facility] [address] [place] [address] Dr. Ivan Seo Urea nitrogen [Mass/Vol] 16.0 mg/dL Normal 7.0-18.0 [facility] Comment on above: Performed By: #### H STROPN, TSH, BNP, BMP #### [facility] [address] [place] [address] Dr. Ivan Seo Urea nitrogen/Creatinine [Mass ratio] 21.3 mg/mg Normal [facility] Comment on above: Performed By: #### H STROPN, TSH, BNP, BMP #### [facility] [address] [place] [address] Dr. Ivan Seo BNPon 09-11-2022 Natriuretic peptide B (Bld) [Mass/Vol] 194.0 pg/mL Normal <=450.0 [facility] Comment on above: Performed By: #### B MACHINE SANDER #### [facility] [address] [place] [address] Dr. Ivan Seo CBC AUTO DIFFon 09-11-2022 BASO # 0.0 103/ul Normal 0.0-0.1 [facility] Comment on above: Performed By: #### M G, BMP #### [facility] [address] [place] [address] Dr. Ivan Seo Basophils/100 WBC (Bld) 0.2 % Normal 0.2-2.0 [facility] Comment on above: Performed By: #### M G, BMP #### [facility] [address] [place] [address] Dr. Ivan Seo EO # 0.0 103/ul Normal 0.0-0.7 [facility] Comment on above: Performed By: #### M G, BMP #### [facility] [address] [address] [address] Ivan Seo Eosinophils/100 WBC (Bld) 0.0 % Critically low 0.9-7.0 [facility] Comment on above: Performed By: #### M G, BMP #### [facility] [address] [place] [address] Dr. Ivan Seo Erythrocyte distribution width (RBC) [Ratio] 12.7 % Normal 11.0-15.0 [facility] Comment on above: Performed By: #### M G, BMP #### [facility] [address] [place] [address] Dr. Ivan Seo Hematocrit (Bld) [Volume fraction] 34.5 % Critically low 42.0-54.0 [facility] Comment on above: Performed By: #### M G, BMP #### [facility] [address] [place] [address] Dr. Ivan Seo Hemoglobin (Bld) [Mass/Vol] 11.8 g/dL Critically low 14.0-18.0 [facility] Comment on above: Performed By: #### M G, BMP #### [facility] [address] [place] [address] Dr. Ivan Seo IG # 0.18 10e3/ul Critically high 0.00-0.03 [facility] Comment on above: Performed By: #### M G, BMP #### [facility] [address] [place] [address] Dr. Ivan Seo IG % 1.4 % Critically high 0.0-0.5 [facility] Comment on above: Performed By: #### M G, BMP #### [facility] [address] [place] [address] Dr. Ivan Seo LYMPH # 1.4 103/ul Normal 1.2-3.8 [facility] Comment on above: Performed By: #### M G, BMP #### [facility] [address] [place] [address] Dr. Ivan Seo Lymphocytes/100 WBC (Bld) 10.2 % Critically low 20.5-60.0 [facility] Comment on above: Performed By: #### M G, BMP #### [facility] [address] [place] [address] Dr. Ivan Seo MANUAL DIFF REQ NO Normal [facility] Comment on above: Performed By: #### M G, BMP #### [facility] [address] [place] [address] Dr. Ivan Seo MCH (RBC) [Entitic mass] 30.8 pg Normal 25.9-34.0 [facility] Comment on above: Performed By: #### M G, BMP #### [facility] [address] [place] [address] Dr. Ivan Seo MCHC (RBC) [Mass/Vol] 34.2 g/dL Normal 29.9-35.2 [facility] Comment on above: Performed By: #### M G, BMP #### [facility] [address] [place] [address] Dr. Ivan Seo MCV (RBC) [Entitic vol] 90.1 fL Normal 80.0-94.0 [facility] Comment on above: Performed By: #### M G, BMP #### [facility] [address] [place] [address] Dr. Ivan Seo MONO # 0.5 103/ul Normal 0.3-0.8 [facility] Comment on above: Performed By: #### M G, BMP #### [facility] [address] [place] [address] Dr. Ivan Seo Monocytes/100 WBC (Bld) 3.7 % Normal 1.7-12.0 [facility] Comment on above: Performed By: #### M G, BMP #### [facility] [address] [place] [address] Dr. Ivan Seo NEUT # 11.2 103/ul Critically high 1.4-6.5 [facility] Comment on above: Performed By: #### M G, BMP #### [facility] [address] [place] [address] Dr. Ivan Seo Neutrophils/100 WBC (Bld) 84.5 % Critically high 43.0-75.0 [facility] Comment on above: Performed By: #### M G, BMP #### [facility] [address] [address] [address] Ivan Seo Platelet mean volume (Bld) [Entitic vol] 9.2 fL Critically low 9.5-13.5 [facility] Comment on above: Performed By: #### M G, BMP #### [facility] [address] [address] [address] Ivan Seo PLT 276 103/ul Normal 150-450 [facility] Comment on above: Performed By: #### M G, BMP #### [facility] [address] [address] [address] Ivan Seo RBC 3.83 106/ul Critically low 4.70-6.10 [facility] Comment on above: Performed By: #### M G, BMP #### [facility] [address] [address] [address] Ivan Seo WBC 13.3 103/ul Critically high 4.0-11.0 [facility] Comment on above: Performed By: #### M G, BMP #### [facility] [address] [address] [address] Ivan Seo CULTURE SPUTUMon 09-11-2022 CULTURE SPUTUM Culture Observations : NORMAL RESPIRATORY SAUNDRA. Normal [facility] Comment on above: Performed By: #### H STROPN, TSH, BNP, BMP #### [facility] [address] [place] [address] Dr. Ivan Seo CULTURE URINEon 09-11-2022 CULTURE URINE Culture Observations : NO GROWTH. Normal [facility] Comment on above: Performed By: #### M G, BMP #### [facility] [address] [address] [address] Ivan Seo ECHOCARDIO M/2D COMPLETEon 0 09-11-2022 ECHOCARDIO M/2D COMPLETE Patient: SUJATA REYNA Exam Date: 09/11/2022 : 1975 Gender:M Ordering : DR JOSH BACH . Admission #: [id number] Family : Order #: [id number] CLICK HERE TO VIEW EXAM ECHOCARDIOGRAM REPORT PROCEDURE: CARDIO PULMONARY ECHOCARDIO M/2D COMP INDICATIONS: Pulmonary embolism, s/p heart ablation, hypertension COMPARISON: None. DESCRIPTION: COMPLETE ECHOCARDIOGRAM Real-time transthoracic echocardiography with 2D, M-mode, spectral and color flow Doppler performed. QUALITY: Technical quality was good. LEFT VENTRICLE: Normal chamber size. Abnormal septal motion due to bundle branch block. LV EF: Normal left ventricular ejection fraction, (>55%). DIASTOLIC: Diastolic function is indeterminate. ATRIAL SEPTUM: Visually appears intact. LEFT ATRIUM: Mild dilatation. RIGHT ATRIUM: Mild dilatation. RIGHT VENTRICLE: Normal chamber size. Normal right ventricular systolic function. TRICUSPID VALVE: Normal mobility and thickness. No stenosis with trivial regurgitation. MITRAL VALVE: Normal mobility and thickness. No evidence of mitral valve stenosis. There is no mitral annular calcification. Trivial mitral regurgitation. AORTIC VALVE: Normal trileaflet appearance. No visible sclerosis. Normal leaflet mobility. No evidence of aortic valve stenosis. No aortic regurgitation. AORTIC ROOT: Normal diameter and appearance. PULMONIC VALVE: Normal thickness and mobility. No stenosis. Trivial regurgitation. PERICARDIUM: Trivial pericardial effusion. Consistent with previous echocardiogram (08/19/2022). IVC: Collapses with inspirations. CONCLUSION: Global left ventricular systolic function is normal; visually estimated ejection fraction is 60 to 65%. Diastolic function is indeterminate. Mild biatrial enlargement. The right ventricle is normal in size and systolic function. No significant valvular abnormalities. Minimal pericardial effusion is seen. Adult Echocardiography Procedure Report Left Ventricle LVEDD (3.7 - 5.6 cm): 5.30 cm LVESD (2.2 - 4.0 cm): 4.24 cm LVIVS thickness (0.6 - 1.2 cm): 1.14 cm LVPW thickness (0.5 - 1.0 cm): 1.09 cm e': 0.10 m/s E - e': 10.93 LVOT Max Gradient: 4.69 mm[Hg], 4.69 mm[Hg], 4.69 mm[Hg], 4.69 mm[Hg] Peak Velocity (LVOT): 1.08 m/s, 1.08 m/s, 1.08 m/s, 1.08 m/s Mean Velocity (LVOT): 0.77 m/s, 0.71 m/s, 0.77 m/s, 0.71 m/s LVOT Diameter 2.00 cm Left Atrium LA Volume Index (2D A2C): 89.37 ml, 89.37 ml Left Atrium Systolic Dimension: 5.26 cm Mitral Valve MV E to A Ratio: 0.98 Mitral Valve A-Wave Peak Velocity: 1.15 m/s Mitral Valve E-Wave Peak Velocity: 1.13 m/s Right Ventricle Aorta AO Root Diam: 2.98 cm Aortic Valve AoV Area (Peak [place]): 1.81 cm2, 1.81 cm2 Peak Velocity(Antegrade Flow): 1.89 m/s Peak Gradient(Antegrade Flow): 14.29 mm[Hg] Tricuspid Valve Peak Velocity: 0.90 m/s Pulmonic Valve Mean Gradient: 6.28 mm[Hg] Mean Velocity: 1.15 m/s Peak Velocity: 1.84 m/s, 1.74 m/s Peak Gradient: 13.55 mm[Hg], 12.14 mm[Hg] Right Atrium Right Atrium Systolic Pressure: 45.31 ml, 45.31 ml Dictated by: Puja Colon M.D. on 09/11/2022 at 14:33 Approved by: Puja Colon M.D. on 09/11/2022 at 14:35 Normal [facility] POINT OF CARE GLUCOSEon 08-26 Glucose [Mass/Vol] 122 mg/dL Critically high 74-106 [facility] Comment on above: Performed By: #### H STROPN, TSH, BNP, BMP #### [facility] [address] [address] [address] Ivan Seo Glucose [Mass/Vol] 161 mg/dL Critically high 74-106 [facility] Comment on above: Performed By: #### M G, BMP #### [facility] [address] [address] [address] Ivan Seo Glucose [Mass/Vol] 123 mg/dL Critically high -106 [facility] Comment on above: Performed By: #### H STROPN, TSH, BNP, BMP #### [facility] [address] [address] [address] Ivan eSo PROF 14(COMP METB)on 023 Albumin [Mass/Vol] 3.5 g/dL Normal 3.4-5.0 [facility] Comment on above: Performed By: #### H STROPN, TSH, BNP, BMP #### [facility] [address] [place] [address] Dr. Ivan Seo Albumin/Globulin [Mass ratio] 0.9 {ratio} Normal [facility] Comment on above: Performed By: #### H STROPN, TSH, BNP, BMP #### [facility] [address] [place] [address] Dr. Ivan Seo ALP [Catalytic activity/Vol] 106 U/L Normal 46-116 [facility] Comment on above: Performed By: #### H STROPN, TSH, BNP, BMP #### [facility] [address] [place] [address] Dr. Ivan Seo ALT [Catalytic activity/Vol] 37 U/L Normal 16-63 [facility] Comment on above: Performed By: #### H STROPN, TSH, BNP, BMP #### [facility] [address] [place] [address] Dr. Ivan Seo Anion gap [Moles/Vol] 11.5 mmol/L Normal [facility] Comment on above: Performed By: #### H STROPN, TSH, BNP, BMP #### [facility] [address] [place] [address] Dr. Ivan Seo AST [Catalytic activity/Vol] 15 U/L Normal 15-37 [facility] Comment on above: Performed By: #### H STROPN, TSH, BNP, BMP #### [facility] [address] [place] [address] Dr. Ivan Seo Bilirubin [Mass/Vol] 0.5 mg/dL Normal 0.2-1.0 [facility] Comment on above: Performed By: #### H STROPN, TSH, BNP, BMP #### [facility] [address] [place] [address] Dr. Ivan Seo Calcium [Mass/Vol] 9.1 mg/dL Normal 8.5-10.[address] [facility] Comment on above: Performed By: #### H STROPN, TSH, BNP, BMP #### [facility] [address] [address] [address] Ivan Seo Chloride [Moles/Vol] 104 mmol/L Normal 98-107 [facility] Comment on above: Performed By: #### H STROPN, TSH, BNP, BMP #### [facility] [address] [address] [address] Ivan Seo CO2 [Moles/Vol] 27.1 mmol/L Normal 21.0-32.0 [facility] Comment on above: Performed By: #### H STROPN, TSH, BNP, BMP #### [facility] [address] [place] [address] Dr. Ivan Seo Creatinine [Mass/Vol] 0.78 mg/dL Normal 0.70-1.30 [facility] Comment on above: Performed By: #### H STROPN, TSH, BNP, BMP #### [facility] [address] [place] [address] Dr. Ivan Seo EGFR-AF DJIBOUTIAN >60 Normal >=60 [facility] Comment on above: Performed By: #### H STROPN, TSH, BNP, BMP #### [facility] [address] [place] [address] Dr. Ivan Seo EGFR-NON AF DJIBOUTIAN >60 Normal >=60 [facility] Comment on above: Performed By: #### H STROPN, TSH, BNP, BMP #### [facility] [address] [address] [address] Ivan Seo Globulin (S) [Mass/Vol] 4.0 g/dL Normal [facility] Comment on above: Performed By: #### H STROPN, TSH, BNP, BMP #### [facility] [address] [place] [address] Dr. Ivan Seo Glucose [Mass/Vol] 176 mg/dL Critically high 74-106 [facility] Comment on above: Performed By: #### H STROPN, TSH, BNP, BMP #### [facility] [facility] [address] [place] [address] Dr. Ivan Seo Potassium [Moles/Vol] 3.6 mmol/L Normal 3.5-5.1 [facility] Comment on above: Performed By: #### H STROPN, TSH, BNP, BMP #### [facility] [address] [place] [address] Dr. Ivan Seo Protein [Mass/Vol] 7.5 g/dL Normal 6.4-8.[address] [facility] Comment on above: Performed By: #### H STROPN, TSH, BNP, BMP #### [facility] [address] [place] [address] Dr. Ivan Seo Sodium [Moles/Vol] 139 mmol/L Normal 136-[address] [facility] Comment on above: Performed By: #### H STROPN, TSH, BNP, BMP #### [facility] [address] [place] [address] Dr. Ivan Seo Urea nitrogen [Mass/Vol] 11.0 mg/dL Normal 7.0-18.0 [facility] Comment on above: Performed By: #### H STROPN, TSH, BNP, BMP #### [facility] [address] [place] [address] Dr. Ivan Seo Urea nitrogen/Creatinine [Mass ratio] 14.1 mg/mg Normal [facility] Comment on above: Performed By: #### H STROPN, TSH, BNP, BMP #### [facility] [address] [place] [address] Dr. Ivan Seo PTT HEPARIN MONITORon 2022 aPTT Coag (Bld) [Time] 47.8 s Normal 39.5-54.2 [facility] Comment on above: Performed By: #### H STROPN, TSH, BNP, BMP #### [facility] [address] [place] [address] Dr. Ivan Seo SPUTUM GRAM STAINon 09-12-19 COMMENTS Normal [facility] Comment on above: Performed By: #### H STROPN, TSH, BNP, BMP #### [facility] [address] [place] [address] Dr. Ivan Seo DIPHTHEROIDS Normal [facility] Comment on above: Performed By: #### H STROPN, TSH, BNP, BMP #### [facility] [address] [address] [address] Ivan Seo EPITHELIALS <25 Normal [facility] Comment on above: Performed By: #### H STROPN, TSH, BNP, BMP #### [facility] [address] [address] [address] Ivan Seo FUNGAL ELEMENTS Normal [facility] Comment on above: Performed By: #### H STROPN, TSH, BNP, BMP #### [facility] [address] [address] [address] Ivan Seo GRAM NEG BACILLI Normal [facility] Comment on above: Performed By: #### H STROPN, TSH, BNP, BMP #### [facility] [address] [address] [address] Ivan Seo GRAM NEG DIPPLOCOCCI Normal [facility] Comment on above: Performed By: #### H STROPN, TSH, BNP, BMP #### [facility] [address] [address] [address] Ivan Seo GRAM POS BACILLI Normal [facility] Comment on above: Performed By: #### H STROPN, TSH, BNP, BMP #### [facility] [address] [address] [address] Ivan Seo GRAM POSITIVE COCCI MODERATE Normal [facility] Comment on above: Performed By: #### H STROPN, TSH, BNP, BMP #### [facility] [address] [address] [address] Ivan Seo WBC (Bld) [#/Vol] 10*3/uL Normal [facility] Comment on above: Performed By: #### H STROPN, TSH, BNP, BMP #### [facility] [address] [address] [address] Ivan Seo TROPONIN, HIGH SENSITIVITYon 09-11-2022 HSTROP 9.2 pg/mL Normal 4.0-76.1 [facility] Comment on above: Result Comment: CUT- OFF POINTS HAVE BEEN ESTABLISHED BASED ON THE FOURTH UNIVERSAL DEFINITIONS OF MYOCARDIAL INFARCTION. THE UPPER REFERENCE LIMIT (URL) OF TROPONIN, DEFINED THE 99TH PERCENTILE OF cTnI DISTRIBUTION IN A REFERENCE POPULATION, HAS BEEN CONFIRMED THE DECISION THRESHOLD FOR [place] DIAGNOSIS. Performed By: #### H STROPN, TSH, BNP, BMP #### [facility] [address] [place] [address] Dr. Ivan Seo UA RANDOM W/MICROSCOPICon BACTERIA NONE SEEN Normal NONE SEEN [facility] Comment on above: Performed By: #### H STROPN, TSH, BNP, BMP #### [facility] [address] [place] [address] Dr. Ivan Seo Bilirubin Ql (U) Negative Normal NEGATIVE [facility] Comment on above: Performed By: #### H STROPN, TSH, BNP, BMP #### [facility] [address] [place] [address] Dr. Ivan Seo CAST NONE SEEN Normal NONE SEEN [facility] Comment on above: Performed By: #### H STROPN, TSH, BNP, BMP #### [facility] [address] [place] [address] Dr. Ivan Seo Clarity (U) CLEAR Normal CLEAR [facility] Comment on above: Performed By: #### H STROPN, TSH, BNP, BMP #### [facility] [address] [place] [address] Dr. Ivan Seo Color (U) LT. YELLOW Normal YELLOW [facility] Comment on above: Performed By: #### H STROPN, TSH, BNP, BMP #### [facility] [address] [place] [address] Dr. Ivan Seo Crystals LM Nom (Urine sed) NONE SEEN Normal NONE SEEN [facility] Comment on above: Performed By: #### H STROPN, TSH, BNP, BMP #### [facility] [address] [place] [address] Dr. Ivan Seo Epithelial cells LM Ql (Urine sed) NONE SEEN Normal NONE SEEN /RARE [facility] Comment on above: Performed By: #### H STROPN, TSH, BNP, BMP #### [facility] [address] [place] [address] Dr. Ivan Seo Glucose Ql (U) 1000 mg/dl Abnormal NEGATIVE [facility] Comment on above: Performed By: #### H STROPN, TSH, BNP, BMP #### [facility] [address] [address] [address] Ivan Seo Hemoglobin Ql (U) Negative Normal NEGATIVE [facility] Comment on above: Performed By: #### H STROPN, TSH, BNP, BMP #### [facility] [address] [address] [address] Ivan Seo Ketones Ql (U) Negative Normal NEGATIVE [facility] Comment on above: Performed By: #### H STROPN, TSH, BNP, BMP #### [facility] [address] [address] [address] Ivan Seo LEUKOCYTES Negative Normal NEGATIVE [facility] Comment on above: Performed By: #### H STROPN, TSH, BNP, BMP #### [facility] [address] [address] [address] Ivan Seo MUCOUS NONE SEEN Normal NONE SEEN [facility] Comment on above: Performed By: #### H STROPN, TSH, BNP, BMP #### [facility] [address] [address] [address] Ivan Seo Nitrite Ql (U) Negative Normal NEGATIVE [facility] Comment on above: Performed By: #### H STROPN, TSH, BNP, BMP #### [facility] [address] [address] [address] Ivan Seo pH (U) 6.0 [pH] Normal 5-9 [facility] Comment on above: Performed By: #### H STROPN, TSH, BNP, BMP #### [facility] [address] [address] [address] Ivan Seo RBC NONE SEEN Abnormal 0-2 [facility] Comment on above: Performed By: #### H STROPN, TSH, BNP, BMP #### [facility] [address] [address] [address] Ivan Seo SPEC GRAVITY 1.020 Normal 1.005-<=1.025 [facility] Comment on above: Performed By: #### H STROPN, TSH, BNP, BMP #### [facility] [address] [address] [address] Ivan Seo UA PROTEIN Negative Normal NEGATIVE/ TRACE [facility] Comment on above: Performed By: #### H STROPN, TSH, BNP, BMP #### [facility] [address] [address] [address] Ivan Seo Urobilinogen Qn (U) 0.2 {Teto'U}/dL Normal 0.2 - 1. 0 [facility] Comment on above: Performed By: #### H STROPN, TSH, BNP, BMP #### [facility] [address] [address] [address] Ivan Seo WBC NONE SEEN Normal NONE SEEN [facility] Comment on above: Performed By: #### H STROPN, TSH, BNP, BMP #### [facility] [address] [address] [address] Ivan Seo US JORDEN DOP LEG BILon 023 US JORDEN DOP LEG KANWAL EXAM: US JORDEN DOP LEG KANWAL HISTORY: Pulmonary embolism. History of right groin catheter access approximately 1 week prior. COMPARISON: None. TECHNIQUE: Evaluation of the deep veins of the bilateral lower extremities was performed utilizing B-mode, color flow and spectral analysis. FINDINGS: Right lower extremity: There is echogenic material and partial compressibility of the common femoral vein near the level of the junction with the femoral vein. The visualized vessels comprising the deep venous systems from the femoral vein through the calf veins demonstrate appropriate compressibility, spontaneous color Doppler flow, and augmentation of flow on spectral Doppler with distal compression. Left lower extremity: The visualized vessels comprising the deep venous systems from the common femoral vein through the calf veins demonstrate appropriate compressibility, spontaneous color Doppler flow, and augmentation of flow on spectral Doppler with distal compression. Additional findings: None. IMPRESSION: 1. Nonocclusive thrombus of the right common femoral vein. 2. No evidence of deep venous thrombosis of the left lower extremity. Electronically authenticated by: NORI MCALLISTER Date: 2022-09-11 07:52 Normal [facility] BNPon 09-10-2022 Natriuretic peptide B (Bld) [Mass/Vol] 138.0 pg/mL Normal <=450.0 [facility] Comment on above: Performed By: #### H STROPN, TSH, BNP, BMP #### [facility] [address] [place] [address] Dr. Ivan Seo CBC W MANUAL DIFFon 09-11-19 23 ATYPICAL LYMPH # Normal [facility] Comment on above: Performed By: #### H STROPN, TSH, BNP, BMP #### [facility] [address] [place] [address] Dr. Ivan Seo ATYPICAL LYMPH % Normal [facility] Comment on above: Performed By: #### H STROPN, TSH, BNP, BMP #### [facility] [address] [place] [address] Dr. Ivan Seo BAND # 0.0 103/ul Normal 0.0-0.3 [facility] Comment on above: Performed By: #### H STROPN, TSH, BNP, BMP #### [facility] [address] [place] [address] Dr. Ivan Seo BAND % 0 % Normal 0-5 [facility] Comment on above: Performed By: #### H STROPN, TSH, BNP, BMP #### [facility] [address] [place] [address] Dr. Ivan Seo BASOM # 0.00 103/ul Normal 0.00-0.10 [facility] Comment on above: Performed By: #### H STROPN, TSH, BNP, BMP #### [facility] [address] [place] [address] Dr. Ivan Seo BASOM % 0.0 % Critically low 0.2-2.0 [facility] Comment on above: Performed By: #### H STROPN, TSH, BNP, BMP #### [facility] [address] [place] [address] Dr. Ivan Seo BLAST # Normal [facility] Comment on above: Performed By: #### H STROPN, TSH, BNP, BMP #### [facility] [address] [place] [address] Dr. Ivan Seo BLAST % Normal [facility] Comment on above: Performed By: #### H STROPN, TSH, BNP, BMP #### [facility] [address] [address] [address] Ivan Seo CORRECTED WBC Normal 4.0-11.0 [facility] Comment on above: Performed By: #### H STROPN, TSH, BNP, BMP #### [facility] [address] [address] [address] Ivan Seo EOS # 0.31 103/ul Normal 0.00-0.70 [facility] Comment on above: Performed By: #### H STROPN, TSH, BNP, BMP #### [facility] [address] [address] [address] Ivan Seo EOS% 2.0 % Normal 0.9-7.0 [facility] Comment on above: Performed By: #### H STROPN, TSH, BNP, BMP #### [facility] [address] [place] [address] Dr. Ivan Seo HCT 35.0 % Critically low 42.0-54.0 [facility] Comment on above: Performed By: #### H STROPN, TSH, BNP, BMP #### [facility] [address] [address] [address] Ivan Seo HGB 11.9 g/dl Critically low 14.0-18.0 [facility] Comment on above: Performed By: #### H STROPN, TSH, BNP, BMP #### [facility] [address] [address] [address] Ivan Seo LYMPHM # 0.92 103/ul Critically low 1.20-3.80 [facility] Comment on above: Performed By: #### H STROPN, TSH, BNP, BMP #### [facility] [address] [address] [address] Ivan Seo LYMPHM% 6.0 % Critically low 20.5-60.0 [facility] Comment on above: Performed By: #### H STROPN, TSH, BNP, BMP #### [facility] [address] [address] [address] Ivan Seo MCH 30.7 pg Normal 25.9-34.0 [facility] Comment on above: Performed By: #### H STROPN, TSH, BNP, BMP #### [facility] [address] [address] [address] Ivan Seo MCHC 34.0 g/dl Normal 29.9-35.2 [facility] Comment on above: Performed By: #### H STROPN, TSH, BNP, BMP #### [facility] [address] [address] [address] Ivan Seo MCV 90.2 fL Normal 80.0-94.0 [facility] Comment on above: Performed By: #### H STROPN, TSH, BNP, BMP #### [facility] [address] [place] [address] Dr. Ivan Seo METAMYELOCYTE # Normal [facility] Comment on above: Performed By: #### H STROPN, TSH, BNP, BMP #### [facility] [address] [address] [address] Ivan Seo METAMYELOCYTE % Normal [facility] Comment on above: Performed By: #### H STROPN, TSH, BNP, BMP #### [facility] [address] [address] [address] Ivan Seo MONOM# 1.38 103/ul Critically high 0.30-0.80 [facility] Comment on above: Performed By: #### H STROPN, TSH, BNP, BMP #### [facility] [address] [address] [address] Ivan Seo MONOM% 9.0 % Normal 1.7-12.0 [facility] Comment on above: Performed By: #### H STROPN, TSH, BNP, BMP #### [facility] [address] [address] [address] Ivan Seo MPV 9.2 fL Critically low 9.5-13.5 [facility] Comment on above: Performed By: #### H STROPN, TSH, BNP, BMP #### [facility] [address] [place] [address] Dr. Ivan Seo MYELOCYTE # Normal [facility] Comment on above: Performed By: #### H STROPN, TSH, BNP, BMP #### [facility] [address] [address] [address] Ivan Seo MYELOCYTE % Normal [facility] Comment on above: Performed By: #### H STROPN, TSH, BNP, BMP #### [facility] [address] [address] [address] Ivan Seo NRBC Normal [facility] Comment on above: Performed By: #### H STROPN, TSH, BNP, BMP #### [facility] [address] [address] [address] Ivan Seo PLT 275 103/ul Normal 150-450 [facility] Comment on above: Performed By: #### H STROPN, TSH, BNP, BMP #### [facility] [address] [address] [address] Ivan Seo RBC 3.88 106/ul Critically low 4.70-6.10 [facility] Comment on above: Performed By: #### H STROPN, TSH, BNP, BMP #### [facility] [address] [address] [address] Ivan Seo RDW 12.9 % Normal 11.0-15.0 [facility] Comment on above: Performed By: #### H STROPN, TSH, BNP, BMP #### [facility] [address] [address] [address] Ivan Seo SEG # 12.70 103/ul Critically high 1.40-6.50 [facility] Comment on above: Performed By: #### H STROPN, TSH, BNP, BMP #### [facility] [address] [id number] Ivan Seo SEG % 83.0 % Critically high 43.0-75.0 [facility] Comment on above: Performed By: #### H STROPN, TSH, BNP, BMP #### [facility] [address] [address] [address] Ivan Seo WBC 15.3 103/ul Critically high 4.0-11.0 [facility] Comment on above: Performed By: #### H STROPN, TSH, BNP, BMP #### [facility] [address] [address] [address] Ivan Seo CTA CHEST WO W CONon 023 CTA CHEST WO W CON EXAMINATION: CTA DESIRAE ST WO W CON, 09/10/2022 6:46 PM EDT HISTORY: Pulmonary embolism COMPARISON: None. TECHNIQUE: CT angiography of the chest was performed with IV contrast. MIP (maximum intensity projection) images or 3D post processing was performed. CT dose reduction technique was used, including Automated Exposure Control. FINDINGS: VASCULATURE/PULMONARY ARTERIES: There is satisfactory opacification of the pulmonary arterial system. There is extensive pulmonary embolism involving the right lower lobe pulmonary artery segments and subsegments. The remaining pulmonary arteries are patent. The main pulmonary artery is normal in diameter. The aorta and great vessels appear normal. HEART/PERICARDIUM: There is no pericardial effusion. MEDIASTINAL/HILAR LYMPH NODES: Enlarged subcarinal lymph node measuring 2.8 x 1.6 cm. Right hilar lymph nodes measuring up to 2.3 x 1.4 cm. Right lower paratracheal lymph node measuring 3.0 x 1.5 cm. No axillary lymphadenopathy. ESOPHAGUS: Normal as visualized. PLEURAL CAVITY: No pleural effusion or pneumothorax. LUNGS/AIRWAYS: Extensive groundglass opacities in the right lower lobe suspicious for pulmonary infarct. Focal area of airspace disease in the right lower lobe which may represent subsegmental atelectasis. Subsegmental atelectasis also noted in the left lower lobe. CHEST WALL/AXILLA/LOWER NECK: Normal. VISUALIZED UPPER ABDOMEN: There is hepatomegaly and diffuse hepatic steatosis. There is an indeterminate lesion in the right hepatic lobe measuring 1.3 cm (series 4, image 61). BONES: No acute process. IMPRESSION: 1. Acute pulmonary embolism involving the right lower lobe segmental and subsegmental branches. Groundglass opacities in the right lower lobe suspicious for pulmonary infarct. 2. Hepatomegaly and diffuse hepatic steatosis. Indeterminate 1.3 cm lesion in the right hepatic lobe. This can be further evaluated with nonemergent contrast-enhanced MRI. 3. Enlarged right hilar and mediastinal lymph nodes which are nonspecific. Critical results were called by Dr. Jean Archibald MD to Jazmine WILSON At 09/10/2022 7:57 PM EDT. Electronically authenticated by: JEAN AMAYA Date: 2022-09-10 20:03 Normal [facility] Covid-19 PCR (CVDTB)on 08-26 SARS-CoV-2 (COVID-19) RNA THONG+probe Ql (Unsp spec) Not detected Normal NOT DETECTED [facility] Comment on above: Result Comment: When diagnostic testing is negative, the possibility of a false negative should be considered in the context of a patient's recent exposures and the presence of clinical signs and symptoms consistent with SARS-CoV-2. This test is not yet approved or cleared by the [place] FDA. When there are no FDA-approved or cleared tests available, and other criteria are met, FDA can make tests available under an emergency access mechanism called an Emergency Use Authorization (EUA). The EUA for this test is supported by the [employer] of Health and Human Service's declaration that circumstances exist to justify the emergency use of in vitro diagnostics for the detection and/or diagnosis of the virus that causes COVID-19. This EUA will remain in effect for the duration of the COVID-19 declaration justifying emergency of IVDs, unless it is terminated or revoked by the FDA (after which the test may no longer be used). Performed By: #### H STROPN, TSH, BNP, BMP #### [facility] [address] [place] [address] Dr. Ivan Seo PROF 14(COMP METB)on 023 Albumin [Mass/Vol] 3.8 g/dL Normal 3.4-5.0 [facility] Comment on above: Performed By: #### H STROPN, TSH, BNP, BMP #### [facility] [address] [address] [address] Ivan Seo Albumin/Globulin [Mass ratio] 1.0 {ratio} Normal [facility] Comment on above: Performed By: #### H STROPN, TSH, BNP, BMP #### [facility] [address] [address] [address] Ivan Seo ALP [Catalytic activity/Vol] 110 U/L Normal 46-116 [facility] Comment on above: Performed By: #### H STROPN, TSH, BNP, BMP #### [facility] [address] [address] [address] Ivan Seo ALT [Catalytic activity/Vol] 42 U/L Normal 16-63 [facility] Comment on above: Performed By: #### H STROPN, TSH, BNP, BMP #### [facility] [address] [place] [address] Dr. Ivan Seo Anion gap [Moles/Vol] 12.9 mmol/L Normal [facility] Comment on above: Performed By: #### H STROPN, TSH, BNP, BMP #### [facility] [address] [place] [address] Dr. Ivan Seo AST [Catalytic activity/Vol] 15 U/L Normal 15-37 [facility] Comment on above: Performed By: #### H STROPN, TSH, BNP, BMP #### [facility] [address] [place] [address] Dr. Ivan Seo Bilirubin [Mass/Vol] 0.8 mg/dL Normal 0.2-1.0 [facility] Comment on above: Performed By: #### H STROPN, TSH, BNP, BMP #### [facility] [address] [place] [address] Dr. Ivan Seo Calcium [Mass/Vol] 9.2 mg/dL Normal 8.5-10.1 [facility] Comment on above: Performed By: #### H STROPN, TSH, BNP, BMP #### [facility] [address] [place] [address] Dr. Ivan Seo Chloride [Moles/Vol] 103 mmol/L Normal 98-107 [facility] Comment on above: Performed By: #### H STROPN, TSH, BNP, BMP #### [facility] [address] [place] [address] Dr. Ivan Seo CO2 [Moles/Vol] 26.6 mmol/L Normal 21.0-32.0 [facility] Comment on above: Performed By: #### H STROPN, TSH, BNP, BMP #### [facility] [address] [address] [address] Ivan Seo Creatinine [Mass/Vol] 0.84 mg/dL Normal 0.70-1.30 [facility] Comment on above: Performed By: #### H STROPN, TSH, BNP, BMP #### [facility] [address] [address] [address] Ivan Seo EGFR-AF DJIBOUTIAN >60 Normal >=60 [facility] Comment on above: Performed By: #### H STROPN, TSH, BNP, BMP #### [facility] [address] [address] [address] Ivan Seo EGFR-NON AF DJIBOUTIAN >60 Normal >=60 [facility] Comment on above: Performed By: #### H STROPN, TSH, BNP, BMP #### [facility] [address] [place] [address] Dr. Ivan Seo Globulin (S) [Mass/Vol] 3.9 g/dL Normal [facility] Comment on above: Performed By: #### H STROPN, TSH, BNP, BMP #### [facility] [address] [address] [address] Ivan Seo Glucose [Mass/Vol] 111 mg/dL Critically high 74-106 [facility] Comment on above: Performed By: #### H STROPN, TSH, BNP, BMP #### [facility] [address] [place] [address] Dr. Ivan Seo Potassium [Moles/Vol] 3.5 mmol/L Normal 3.5-5.1 [facility] Comment on above: Performed By: #### H STROPN, TSH, BNP, BMP #### [facility] [address] [place] [address] Dr. Ivan Seo Protein [Mass/Vol] 7.7 g/dL Normal 6.4-8.[address] [facility] Comment on above: Performed By: #### H STROPN, TSH, BNP, BMP #### [facility] [address] [place] [address] Dr. Ivan Seo Sodium [Moles/Vol] 139 mmol/L Normal 136-145 [facility] Comment on above: Performed By: #### H STROPN, TSH, BNP, BMP #### [facility] [address] [address] [address] Ivan Seo Urea nitrogen [Mass/Vol] 11.0 mg/dL Normal 7.0-18.0 [facility] Comment on above: Performed By: #### H STROPN, TSH, BNP, BMP #### [facility] [address] [place] [address] Dr. Ivan Seo Urea nitrogen/Creatinine [Mass ratio] 13.1 mg/mg Normal [facility] Comment on above: Performed By: #### H STROPN, TSH, BNP, BMP #### [facility] [address] [place] [address] Dr. Ivan Seo PROTIMEon 09-10-2022 INR Coag (PPP) [Relative time] 1.08 {INR} Normal [facility] Comment on above: Performed By: #### H STROPN, TSH, BNP, BMP #### [facility] [address] [place] [address] Dr. Ivan Seo INR GUIDELINES SEE BELOW Normal [facility] Comment on above: Result Comment: ROGELIO RED INR: 2.0 - 3.0 CONDITIONS NOT LISTED BELOW 2.5 - 3.5 FOR PROSTHETIC HEART VALVE REPLACEMENT 2.5 - 3.5 RECURRENT THROMBOSIS Performed By: #### H STROPN, TSH, BNP, BMP #### [facility] [address] [place] [address] Dr. Ivan Seo PT Coag (PPP) [Time] 11.4 s Normal 9.0-11.6 [facility] Comment on above: Performed By: #### H STROPN, TSH, BNP, BMP #### [facility] [address] [place] [address] Dr. Ivan Seo PTTon 09-10-2022 aPTT Coag (Bld) [Time] 29.9 s Normal 22.3-36.2 [facility] Comment on above: Performed By: #### H STROPN, TSH, BNP, BMP #### [facility] [address] [place] [address] Dr. Ivan Seo TROPONIN, HIGH SENSITIVITYon 09-10-2022 HSTROP 10.9 pg/mL Normal 4.0-76.1 [facility] Comment on above: Result Comment: CUT- OFF POINTS HAVE BEEN ESTABLISHED BASED ON THE FOURTH UNIVERSAL DEFINITIONS OF MYOCARDIAL INFARCTION. THE UPPER REFERENCE LIMIT (URL) OF TROPONIN, DEFINED THE 99TH PERCENTILE OF cTnI DISTRIBUTION IN A REFERENCE POPULATION, HAS BEEN CONFIRMED THE DECISION THRESHOLD FOR [place] DIAGNOSIS. Performed By: #### H STROPN, TSH, BNP, BMP #### [facility] [address] [address] [address] vIan Seo Ambulatory Visit Summaryon 0 09-04-2022 Ambulatory Visit Summary SUJATA REYNA Bridgette :1975 Visit Date:09/04/2022 Ambulatory Visit Instructions Your Diagnosis BPH with urinary obstruction Impotence Glycosuria Tests Performed Urnls Dip Stick Auto w/o Microscopy POC [address] Your Care Team Attending Physician - Benton CARL MD Primary Care Physician - Josh Bach MD This Is Your Medications List tadalafil (Cialis 10 mg Tab) terazosin (terazosin 10 mg Cap) Contact prescribing physician if questions or concerns ascorbic acid (Vitamin C) aspirin cholecalciferol (Vitamin D3) dapagliflozin irbesartan (irbesartan 150 mg Tab) metoprolol multivitamin (Multi Vitamin+) red yeast rice (Red Yeast Rice) sacubitril-valsartan Procedures Performed Fluoroscopic guidance for cardiac ablation, Hernia repair. Discharge Vitals Blood Pressure 124/70 Height 175 cm Height 69 in Weight 99 kg Weight 217.8 lb BMI 32.33 What to do next Scheduled Follow-Up Appointments Wednesday 8:00 AM EST With: Benton CARL MD Where: [facility] Normal [facility] Covid-19 PCR (CVDTBH)on 08-26 SARS-CoV-2 (COVID-19) RNA THONG+probe Ql (Unsp spec) Not detected Normal NOT DETECTED [facility] Comment on above: Result Comment: When diagnostic testing is negative, the possibility of a false negative should be considered in the context of a patient's recent exposures and the presence of clinical signs and symptoms consistent with SARS-CoV-2. This test is not yet approved or cleared by the [place] FDA. When there are no FDA-approved or cleared tests available, and other criteria are met, FDA can make tests available under an emergency access mechanism called an Emergency Use Authorization (EUA). The EUA for this test is supported by the [place] of Health and Human Service's declaration that circumstances exist to justify the emergency use of in vitro diagnostics for the detection and/or diagnosis of the virus that causes COVID-19. This EUA will remain in effect for the duration of the COVID-19 declaration justifying emergency of IVDs, unless it is terminated or revoked by the FDA (after which the test may no longer be used). Performed By: #### H STROPN, TSH, BNP, BMP #### [facility] [address] [place] [address] Dr. Ivan Seo Patient Educationon 09-05-19 23 Patient Education Urology Benign Prostatic Hyperplasia Benign prostatic hyperplasia (BPH) is an enlarged prostate gland that is caused by the normal aging process and not by cancer. The prostate is a walnut-sized gland that is involved in the production of semen. It is located in front of the rectum and below the bladder. The bladder stores urine and the urethra is the tube that carries the urine out of the body. The prostate may get bigger as a man gets older. An enlarged prostate can press on the urethra. This can make it harder to pass urine. The build-up of urine in the bladder can cause infection. Back pressure and infection may progress to bladder damage and kidney (renal) failure. What are the causes? This condition is part of a normal aging process. However, not all men develop problems from this condition. If the prostate enlarges away from the urethra, urine flow will not be blocked. If it enlarges toward the urethra and compresses it, there will be problems passing urine. What increases the risk? This condition is more likely to develop in men over the age of 50 years. What are the signs or symptoms? Symptoms of this condition include: ? Getting up often during the night to urinate. ? Needing to urinate frequently during the day. ? Difficulty starting urine flow. ? Decrease in size and strength of your urine stream. ? Leaking (dribbling) after urinating. ? Inability to pass urine. This needs immediate treatment. ? Inability to completely empty your bladder. ? Pain when you pass urine. This is more common if there is also an infection. ? Urinary tract infection (UTI). How is this diagnosed? This condition is diagnosed based on your medical history, a physical exam, and your symptoms. Tests will also be done, such as: ? A post-void bladder scan. This measures any amount of urine that may remain in your bladder after you finish urinating. ? A digital rectal exam. In a rectal exam, your health care provider checks your prostate by putting a lubricated, gloved finger into your rectum to feel the back of your prostate gland. This exam detects the size of your gland and any abnormal lumps or growths. ? An exam of your urine (urinalysis). ? A prostate specific antigen (PSA) screening. This is a blood test used to screen for prostate cancer. ? An ultrasound. This test uses sound waves to electronically produce a picture of your prostate gland. Your health care provider may refer you to a specialist in kidney and prostate diseases (urologist). How is this treated? Once symptoms begin, your health care provider will monitor your condition (active surveillance or watchful waiting). Treatment for this condition will depend on the severity of your condition. Treatment may include: ? Observation and yearly exams. This may be the only treatment needed if your condition and symptoms are mild. ? Medicines to relieve your symptoms, including: ? Medicines to shrink the prostate. ? Medicines to relax the muscle of the prostate. ? Surgery in severe cases. Surgery may include: ? Prostatectomy. In this procedure, the prostate tissue is removed completely through an open incision or with a laparoscope or robotics. ? Transurethral resection of the prostate (TURP). In this procedure, a tool is inserted through the opening at the tip of the penis (urethra). It is used to cut away tissue of the inner core of the prostate. The pieces are removed through the same opening of the penis. This removes the blockage. ? Transurethral incision (TUIP). In this procedure, small cuts are made in the prostate. This lessens the prostate's pressure on the urethra. ? Transurethral microwave thermotherapy (TUMT). This procedure uses microwaves to create heat. The heat destroys and removes a small amount of prostate tissue. ? Transurethral needle ablation (TUNA). This procedure uses radio frequencies to destroy and remove a small amount of prostate tissue. ? Interstitial laser coagulation (ILC). This procedure uses a laser to destroy and remove a small amount of prostate tissue. ? Transurethral electrovaporization (TUVP). This procedure uses electrodes to destroy and remove a small amount of prostate tissue. ? Prostatic urethral lift. This procedure inserts an implant to push the lobes of the prostate away from the urethra. Follow these instructions at home: ? Take dlex-sng-eoxvngo and prescription medicines only as told by your health care provider. ? Monitor your symptoms for any changes. Contact your health care provider with any changes. ? Avoid drinking large amounts of liquid before going to bed or out in public. ? Avoid or reduce how much caffeine or alcohol you drink. ? Give yourself time when you urinate. ? Keep all follow-up visits as told by your health care provider. This is important. Contact a health care provider if: ? You have unexplained back pain. ? Your symptoms do not get better with treatment. ? You d (more content not included)... Normal [facility] Urology Office/Clinic Noteon 09-04-2022 Urology Office/Clinic Note Chief Complaint Patint here for 1 year follow up with PSA HPI Staff Patient here for 1 year follow up with PSA. Done on 06-05-2022 PSA 0.94 Previous Dx: BPH with urinary obstruction, impotence (Cialis 10mg) Dysuria: no Incomplete bladder emptying: no Hematuria: no Frequency: no Urgency: no Nocturia: no Stream: weak Leaking: no Post void dripping: no Wearing pads/ Depends: no Urge incontinence: no Stress incontinence: no Incontinence without Sensory Awareness: no Abdominal pain: no Flank pain: no Sexual complaints: no History of Present Illness Tests reviewed: reviewed UA & PSA. I have reviewed the previous health record information and history for this patient from Dr. Carl. I have reviewed and verified the staff HPI to be accurate for this encounter. There have been no associated fever, chills, flank pain, or blood in the urine. Denies any urinary infections since last encounter. Review of Systems PHQ Score Initial Depression Screen Score: 0 ROS - Provider Constitutional: denies weight loss, denies hot flashes. Eyes: denies eye problems. Gastrointestinal: denies nausea, denies vomiting. Cardiovascular: denies chest pain or angina. Integumentary: no dryness Musculoskeletal: denies musculoskeletal symptoms. ENMT: denies otolaryngeal symptoms. Respiratory: no shortness of breath. Heme/Lymph: denies easy bleeding tendency, denies easy bruising tendency. Psychiatric: no confusion, no anxiety. Genitourinary: See HPI. Physical Exam Vitals & Measurements BP: 124/70 HT: 69 in HT: 175 cm WT: 99 kg WT: 217.8 lb BMI: 32.33 General Appearance: alert, no distress, well nourished, well developed male. Genitourinary: normal scrotum, normal testes, normal urethra, normal epididymis, normal vas deferens/spermatic cord. Flank Pain: none. Bladder: nonpalpable. Assessment/Plan Recent hospitalization due to tachycardia, heart ablation at that time. Shares he had a heart cath and no blockage was found. 1. BPH with urinary obstruction (N40.1: Benign prostatic hyperplasia with lower urinary tract symptoms) Terazosin 10mg daily. Experiencing a weak stream. Current PSA 0.94 drawn 06/05/22. Previous level 1.16 drawn 08/30/20. Denies family history of prostate cancer. UA today neg for infection. Will continue to monitor. Pt. to continue medication management, refill sent today to [facility] in [place]. Follow up in 1 year w/ PSA. All questions/concerns were discussed. Pt. to call the office if heencounters any issues prior. Pt. acknowledges understanding. 2. Impotence (N52.9: Male erectile dysfunction, unspecified) Cialis 10mg prn. No issues at this time and medication working well for patient. 3. 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 Pt. is not a diabetic. Just recently started on Farxiga due to heart conduction issues which is causing glucose in urine. Follow-up With When Contact Information SIDDHARTHA MOLINA, Benton Zurita, [address] [place] [address]- Additional Instructions: 1 year w/ PSA Patient Education Benign Prostatic Hyperplasia I, Julia Mcmahon, personally scribed for Dr. Carl on 09/04/2022 09:17:51. . Documentation recorded by the Julia castillo, accurately reflects the services(s) I performed and decisions made by me. Authenticated by Dr. Carl on 09/04/2022 09:21:43. Problem List/Past Medical History Ongoing BMI 35.0-35.9,adult BPH with urinary obstruction Former smoker Glycosuria Hypertension Impotence Prostatitis Historical No qualifying data Procedure/Surgical History Fluoroscopic guidance for cardiac ablation, Hernia repair. Medications aspirin Cialis 10 mg Tab, 10 mg= 1 tab(s), Oral, As Directed, PRN, 2 refills dapagliflozin irbesartan 150 mg Tab, Oral, Daily metoprolol Multi Vitamin+ Red Yeast Rice, Oral, Daily sacubitril-valsartan terazosin 10 mg Cap, 10 mg= 1 cap(s), Oral, Daily, 3 refills Vitamin C, 1000 mg, Daily Vitamin D3 Allergies No Known Medication Allergies Social History Tobacco Former smoker, quit more than 30 days ago Tobacco Use:., 09/04/2022 Immunizations Vaccine Date Status Comments SARS-CoV-2 (COVID-19) Ad26 vaccine - Not Given Postpone due to refusal sipuleucel-T 03/25/2020 Recorded influenza virus vaccine, live, trivalent 04/03/2019 Recorded Lab Results Ambulatory Point of Care Results Bilirubin Urine Dipstick: Negative (09/04/22 08:22:00) Blood Urine Dipstick: Negative (09/04/22 08:22:00) Glucose Urine Dipstick: 3+ 1000 mg/dl (09/04/22 08:22:00) Ketones Urine Dipstick: Trace - 5 mg/dl (09/04/22 08:22:00) Leukocytes Urine Dipstick: Negative (09/04/22 08:22:00) Nitrite Urine Dipstick: Negative (09/04/22 08:22:00) Protein Urine Dipstick: Trace (09/04/22 08:22:00) Specific [place] Urine Dipstick: 1.015 (09/04/22 08:22:00) Urine Appearance Urine Dipstick: Clear (09/04/22 (more content not included)... Normal [facility] Comment on above: Result Comment: Elec tronically Signed By: SIDDHARTHA MOLINA, Benton Zurita\.br\Date and Time Signed: 09/04/22 09:21 EST\.br\Electronically Co-Signed By: Julia Mcmahon.br\Date and Time Co-Signed: 09/04/22 09:17 EST 36on 09-03-2022 36 Patient called c/o l ow BP and feeling drained . When he woke up this morning, his BP was 118/78, HR 85 before meds. He felt fine at this time. After taking meds, BP went down to 88/59, HR 93 and 87/69, HR 89. Want to change any meds? He's taking metoprolol succinate 200mg once a day and Entresto bid. Please advise. Thanks. Normal [facility] BASIC METABOLIC PANELon 03-0 Anion gap [Moles/Vol] 11 mmol/L Normal 7-20 [facility] Comment on above: Performed By: #### L AB15 #### [facility] ([facility]) [address] [place] [address] Calcium [Mass/Vol] 9.4 mg/dL Normal 8.6-10.3 [facility] Comment on above: Performed By: #### L [id number] #### [facility] ([facility]) [address] [place] [address] Chloride [Moles/Vol] 102 mmol/L Normal 98-107 [facility] Comment on above: Performed By: #### L [id number] #### [facility] ([facility]) [address] [place] [address] CO2 [Moles/Vol] 27 mmol/L Normal 21-31 [facility] Comment on above: Performed By: #### L [id number] #### [facility]) [address] [place] [address] Creatinine [Mass/Vol] 0.83 mg/dL Normal 0.70-1.30 [facility] Comment on above: Performed By: #### L AB15 #### [facility] ([facility]) [address] [place] [address] GLOMERULAR FILTRATION RATE ML/MIN/1.73 SQ M.PREDICTED 108.0 mL/min/1.73m*2 Normal >60.0 [facility] Comment on above: Result Comment: The [facility]???s estimated glomerular filtration rate (eGFR) will no longer include consideration of race in its calculation. The National Kidney Foundation???s eGFR Task Force developed new recommendations for the estimation of the glomerular filtration rate in the [place] They recommend immediate implementation of the new equation refit without the race variable in all laboratories because the calculation does not include race. In addition to not including race in the calculation and reporting, it included diversity in its development, and has acceptable performance characteristics and potential consequences that do not disproportionately affect any one group of individuals. Performed By: #### L AB15 #### [facility] ([facility]) [address] [place] [address] Glucose [Mass/Vol] 87 mg/dL Normal 70-100 [facility] Comment on above: Performed By: #### L AB15 #### [facility] ([facility]) [address] [place] [address] Potassium [Moles/Vol] 3.7 mmol/L Normal 3.5-5.1 [facility] Comment on above: Performed By: #### L AB15 #### [facility] ([facility]) [address] [place] [address] Sodium [Moles/Vol] 136 mmol/L Normal 136-145 [facility] Comment on above: Performed By: #### L [id number] #### [facility] ([facility]) [address] [place] [address] Urea nitrogen [Mass/Vol] 13 mg/dL Normal 7-25 [facility] Comment on above: Performed By: #### L [id number] #### [facility] ([facility]) [address] [place] [address] UREA NITROGEN/CREATININE (MASS RATIO) IN SER/PLAS 15.7 Normal [facility] Comment on above: Performed By: #### L AB15 #### [facility] ([facility]) [address] [place] [address] CBCon 09-02-2022 Erythrocyte distribution width (RBC) [Ratio] 12.9 % Normal 11.5-15.0 [facility] Comment on above: Performed By: #### L [id number] #### [facility] ([facility]) [address] [place] [address] ERYTHROCYTE MEAN CORPUSCULAR HEMOGLOBIN CONCENTRATION (G/DL) BY AUTOMATED 34.8 g/dL Normal 32.0-35.0 [facility] Comment on above: Performed By: #### L [id number] #### [facility] ([facility]) [address] [place] [address] Hematocrit (Bld) [Volume fraction] 42.3 % Normal 39.0-55.0 [facility] Comment on above: Performed By: #### L [id number] #### [facility] ([facility]) [address] [place] [address] Hemoglobin (Bld) [Mass/Vol] 14.7 g/dL Normal 13.0-17.0 [facility] Comment on above: Performed By: #### L [id number] #### [facility] ([facility]) [address] [place] [address] MCH (RBC) [Entitic mass] 30.7 pg Normal 27.0-33.0 [facility] Comment on above: Performed By: #### L [id number] #### [facility] ([facility]) [address] [place] [address] MCV (RBC) [Entitic vol] 88.3 fL Normal 82.0-98.0 [facility] Comment on above: Performed By: #### L [id number] #### [facility] ([facility]) [address] [place] [address] PLATELETS (10*3/UL) IN BLOOD AUTOMATED COUNT 238 10*3/uL Normal 150-400 [facility] Comment on above: Performed By: #### L [id number] #### [facility] ([facility]) [address] [place] [address] RBC (Bld) [#/Vol] 4.79 10*6/uL Normal 4.20-5.70 [facility] Comment on above: Performed By: #### L [id number] #### [facility] ([facility]) [address] [place] [address] WBC (Bld) [#/Vol] 7.90 10*3/uL Normal 4.00-10.60 [facility] Comment on above: Performed By: #### L [id number] #### [facility] ([facility]) [address] [place] [address] Orders Onlyon 09-02-2022 Orders Only [id number] Sujata Reyna 1975 M Date Provider Department [place] 09/02/2022 ISA LOO [facility]. No family history on file [facility] 30on 2022 30 Problem: Pain - Adul t Goal: Verbalizes/displays adequate comfort level or baseline comfort level Outcome: Progressing Problem: Safety - Adult Goal: Free from fall injury Outcome: Progressing Problem: Discharge Planning Goal: Discharge to home or other facility with appropriate resources Outcome: Progressing Problem: Chronic Conditions and Co-morbidities Goal: Patient's chronic conditions and co-morbidity symptoms are monitored and maintained or improved Outcome: Progressing The patient is Moderately Stable - Low risk of patient condition declining or worsening The patient's goals for the shift include COMFORT The clinical goals for the shift include VSS Normal [facility] NURSNOTEon 2022 NURSNOTE CV NCDR CATHPCI V5 COLLECTION FORM [facility] B-TYPE NATRIURETIC PEPTIDEon 08-31-2022 Natriuretic peptide B (Bld) [Mass/Vol] 49 pg/mL Normal 0-100 [facility] Comment on above: Performed By: #### L [id number] ####[facility] ([facility])[address] [place] [address] HPon 08-31-2022 HP H&P reviewed. The patient was examined and there are no changes to the H&P. [facility] NURSNOTEon 08-31-2022 NURSNOTE MS notified report ing nurse that patient had a heart rate of 177 with PSVT. Patient stated he felt flutters in his chest twice while sitting on the side of the bed. Doctors orders will continue to be followed. [facility] 30on 08-30-2022 30 The patient is Moderately Stable - Low risk of patient condition declining or worsening The patient's goals for the shift include comfort The clinical goals for the shift include VSS Problem: Pain - Adult Goal: Verbalizes/displays adequate comfort level or baseline comfort level Outcome: Progressing Problem: Safety - Adult Goal: Free from fall injury Outcome: Progressing Normal [facility] 30 The patient is Moderately Stable - Low risk of patient condition declining or worsening The patient's goals for the shift include comfort The clinical goals for the shift include vss/manage cp Problem: Pain - Adult Goal: Verbalizes/displays adequate comfort level or baseline comfort level Outcome: Progressing Problem: Safety - Adult Goal: Free from fall injury Outcome: Progressing Problem: Discharge Planning Goal: Discharge to home or other facility with appropriate resources Outcome: Progressing Problem: Chronic Conditions and Co-morbidities Goal: Patient's chronic conditions and co-morbidity symptoms are monitored and maintained or improved Outcome: Progressing Normal [facility] 30 The patient is Moderately Stable - Low risk of patient condition declining or worsening The patient's goals for the shift include comfort The clinical goals for the shift include vss/manage cp Problem: Pain - Adult Goal: Verbalizes/displays adequate comfort level or baseline comfort level Outcome: Progressing Problem: Safety - Adult Goal: Free from fall injury Outcome: Progressing Flowsheets (Taken 08/29/20222006) Free from fall injury: Assess patient frequently for physical needs Identify cognitive and physical deficits and behaviors that affect risk of falls [place] fall precautions as indicated by assessment Educate patient/family on patient safety, including physical limitations Instruct patient to call for assistance with activity based on assessment Modify environment to reduce risk of injury Problem: Discharge Planning Goal: Discharge to home or other facility with appropriate resources Outcome: Progressing Problem: Chronic Conditions and Co-morbidities Goal: Patient's chronic conditions and co-morbidity symptoms are monitored and maintained or improved Outcome: Progressing Normal [facility] 30on 08-29-2022 30 The patient is Moderately Unstable - Medium risk of patient condition declining or worsening The patient's goals for the shift include no pain The clinical goals for the shift include VSS Over the shift, the patient is making progress toward the following goals. Problem: Pain - Adult Goal: Verbalizes/displays adequate comfort level or baseline comfort level Outcome: Progressing Problem: Safety - Adult Goal: Free from fall injury Outcome: Progressing Problem: Discharge Planning Goal: Discharge to home or other facility with appropriate resources Outcome: Progressing Problem: Chronic Conditions and Co-morbidities Goal: Patient's chronic conditions and co-morbidity symptoms are monitored and maintained or improved Outcome: Progressing Normal [facility] CONSULTon 08-29-2022 CONSULT --- Attestation signed by Adrien Blas MD at 08/30/2022 4:57 PM I personally saw and examined the patient on the same date of service as resident/fellow Krishna Paula . I discussed the findings and therapeutic plan with the resident/fellow Krishna Paula . I agree with the documentation, except for any edits/updates below. Teaching Physician's Revisions: as above Reason For Consult unstable angina History Of Present Illness Sujata Reyna is a 46 y.o. male presenting with Chest Pain. PMHx of HTN, transferred from cardiology clinic for plan for ischemia evaluation and coronary angiography. Patient presented the clinic to establish care regarding abnormal stress test, echocardiogram, abnormal ECG- LBBB, near syncope and unstable angina. 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 States he would feel mid sternal chest tightness, and lightheadedness felt like he was going to pass out, noted some palpitations. Denied radiation of chest tightness, nausea or sweating. He was evaluated in ED at [facility]- was noted on ECG to have LBBB and was scheduled for outpt echocardiogram and stress test. States that he continues to have symptoms almost daily or multiple times a day. Underwent TTE 08/19/22 at OSH that showed mildly reduced global LV systolic function, EF 45-50%, abnormal septal motion. Treadmill test 08/27/22 showed moderate-sized area of moderate severity perfusion defect in anterior wall, inferior wall w/o reversible ischemia. He was sent to [facility] for further management and coronary angiography. Past Medical History He has a past medical history of Hypertension. Surgical History He has a past surgical history that includes Hernia repair. Family History Father passed 48 yo aneurysm- (back of neck), HTN, DM Social History He reports that he quit smoking about 14 years ago. His smoking use included cigarettes. He started smoking about 20 years ago. He has never used smokeless tobacco. He reports current alcohol use. He reports that he does not use drugs. Allergies Patient has no known allergies. Medications Medications Prior to Admission Medication Sig Dispense Refill Last Dose aspirin 81 mg EC tablet Take 81 mg by mouth in the morning and at bedtime. 08/28/2022 atorvastatin (Lipitor) 40 mg tablet Take 1 tablet (40 mg) by mouth in the morning. 30 tablet 5 08/28/2022 irbesartan (Avapro) 150 mg tablet Take 75 mg by mouth in the morning and at bedtime. 08/28/2022 metoprolol tartrate (Lopressor) 50 mg tablet Take 150 mg by mouth in the morning and at bedtime. Take one half tablet in the morning and one half tablet at night 08/28/2022 terazosin (Hytrin) 10 mg capsule Take 10 mg by mouth in the morning. 08/28/2022 Active Hospital Medications Medication Dose Route Frequency Last Admin acetaminophen 650 mg oral q6h PRN 650 mg at 08/29/22 09 aspirin 81 mg oral BID 81 mg at 08/29/22921 atorvastatin 40 mg oral Daily 40 mg at 08/29/22 0922 heparin (porcine) 5,000 Units subcutaneous q12h VIRI 5,000 Units at 08/29/22 0922 losartan 25 mg oral Daily 25 mg at 08/29/22 0922 metoprolol tartrate 75 mg oral BID 75 mg at 08/29/22 1655 Review of Systems 12 point ROS negative except as in HPI Last Recorded Vitals Patient Vitals for the past 24 hrs: BP Temp Temp src Pulse Resp SpO2 Weight 08/29/22 1616 -- -- -- 68 15 -- -- 08/29/22 1605 120/77 -- -- 57 17 -- -- 08/29/22 1222 138/77 -- -- 74 21 96 % -- 08/29/22 0824 (!) 142/93 -- -- 66 19 93 % -- 08/29/22 0754 123/89 36.7 ???C (98.1 ???F) Temporal 63 14 96 % -- 08/29/22 0657 143/74 -- -- 73 -- -- -- 08/29/22 0500 -- -- -- -- -- -- 103 kg (227 lb 11.8 oz) 08/29/22 0400 -- 36.5 ???C (97.7 ???F) Temporal -- -- -- -- 08/29/22 0007 135/73 36.6 ???C (97.8 ???F) Temporal 61 16 95 % -- 08/28/22 2105 126/71 36.5 ???C (97.7 ???F) Temporal 64 13 95 % -- 08/28/222000 138/73 -- -- 69 13 95 % -- Physical Exam Constitutional: Appearance: Normal appearance. Without apparent distress HENT: Head: Normocephalic and atraumatic. Nose: Nose normal. Mouth/Throat: Mouth: Mucous membranes are moist. Eyes: Extraocular Movements: Extraocular movements intact. Conjunctiva/sclera: Conjunctivae normal. Neck: Vascular: No JVD. Cardiovascular: Rate and Rhythm: Normal rate and regular rhythm. Pulses: Dorsalis pedis pulses are 3 on the right side and 3on the left side. Posterior tibial pulses are 3 on the right side and 3 on the left side. Heart sounds: Normal heart sounds, S1 normal and S2 normal. Pulmonary: Effort: Pulmonary effort is normal. Breath sounds: Normal breath sounds. Abdominal: General: Bowel sounds are normal. Palpations: Abdomen is soft. Musculoskeletal: General: Norm (more content not included)... Normal [facility] HPon 08-29-2022 HP --- Attestation signed by Adrien Blas MD at 08/30/2022 4:57 PM I personally saw and examined the patient on the same date of service as resident/fellow Krishna Paula . I discussed the findings and therapeutic plan with the resident/fellow Krishna Paula . I agree with the documentation, except for any edits/updates below. Teaching Physician's Revisions: as above Reason For Consult unstable angina History Of Present Illness Sujata Reyna is a 46 y.o. male presenting with Chest Pain. PMHx of HTN, transferred from cardiology clinic for plan for ischemia evaluation and coronary angiography. Patient presented the clinic to establish care regarding abnormal stress test, echocardiogram, abnormal ECG- LBBB, near syncope and unstable angina. 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 States he would feel mid sternal chest tightness, and lightheadedness felt like he was going to pass out, noted some palpitations. Denied radiation of chest tightness, nausea or sweating. He was evaluated in ED at [facility]- was noted on ECG to have LBBB and was scheduled for outpt echocardiogram and stress test. States that he continues to have symptoms almost daily or multiple times a day. Underwent TTE 08/19/22 at OSH that showed mildly reduced global LV systolic function, EF 45-50%, abnormal septal motion. Treadmill test 08/27/22 showed moderate-sized area of moderate severity perfusion defect in anterior wall, inferior wall w/o reversible ischemia. He was sent to [facility] for further management and coronary angiography. Past Medical History He has a past medical history of Hypertension. Surgical History He has a past surgical history that includes Hernia repair. Family History Father passed 48 yo aneurysm- (back of neck), HTN, DM Social History He reports that he quit smoking about 14 years ago. His smoking use included cigarettes. He started smoking about 20 years ago. He has never used smokeless tobacco. He reports current alcohol use. He reports that he does not use drugs. Allergies Patient has no known allergies. Medications Medications Prior to Admission Medication Sig Dispense Refill Last Dose aspirin 81 mg EC tablet Take 81 mg by mouth in the morning and at bedtime. 08/28/2022 atorvastatin (Lipitor) 40 mg tablet Take 1 tablet (40 mg) by mouth in the morning. 30 tablet 5 08/28/2022 irbesartan (Avapro) 150 mg tablet Take 75 mg by mouth in the morning and at bedtime. 08/28/2022 metoprolol tartrate (Lopressor) 50 mg tablet Take 150 mg by mouth in the morning and at bedtime. Take one half tablet in the morning and one half tablet at night 08/28/2022 terazosin (Hytrin) 10 mg capsule Take 10 mg by mouth in the morning. 08/28/2022 Active Hospital Medications Medication Dose Route Frequency Last Admin acetaminophen 650 mg oral q6h PRN 650 mg at 08/29/22 0921 aspirin 81 mg oral BID 81 mg at 08/29/22 0922 atorvastatin 40 mg oral Daily 40 mg at 08/29/22 09 heparin (porcine) 5,000 Units subcutaneous q12h VIRI 5,000 Units at 08/29/22 09 losartan 25 mg oral Daily 25 mg at 08/29/22 09 metoprolol tartrate 75 mg oral BID 75 mg at 08/29/22 1655 Review of Systems 12 point ROS negative except as in HPI Last Recorded Vitals Patient Vitals for the past 24 hrs: BP Temp Temp src Pulse Resp SpO2 Weight 08/29/22 1616 -- -- -- 68 15 -- -- 08/29/22 1605 120/77 -- -- 57 17 -- -- 08/29/22 1222 138/77 -- -- 74 21 96 % -- 08/29/22 0824 (!) 142/93 -- -- 66 19 93 % -- 08/29/22 0754 123/89 36.7 ???C (98.1 ???F) Temporal 63 14 96 % -- 08/29/22 0657 143/74 -- -- 73 -- -- -- 08/29/22 0500 -- -- -- -- -- -- 103 kg (227 lb 11.8 oz) 08/29/22 0400 -- 36.5 ???C (97.7 ???F) Temporal -- -- -- -- 08/29/22 0007 135/73 36.6 ???C (97.8 ???F) Temporal 61 16 95 % -- 08/28/22 2105 126/71 36.5 ???C (97.7 ???F) Temporal 64 13 95 % -- 08/28/222000 138/73 -- -- 69 13 95 % -- Physical Exam Constitutional: Appearance: Normal appearance. Without apparent distress HENT: Head: Normocephalic and atraumatic. Nose: Nose normal. Mouth/Throat: Mouth: Mucous membranes are moist. Eyes: Extraocular Movements: Extraocular movements intact. Conjunctiva/sclera: Conjunctivae normal. Neck: Vascular: No JVD. Cardiovascular: Rate and Rhythm: Normal rate and regular rhythm. Pulses: Dorsalis pedis pulses are 3 on the right side and 3on the left side. Posterior tibial pulses are 3 on the right side and 3 on the left side. Heart sounds: Normal heart sounds, S1 normal and S2 normal. Pulmonary: Effort: Pulmonary effort is normal. Breath sounds: Normal breath sounds. Abdominal: General: Bowel sounds are normal. Palpations: Abdomen is soft. Musculoskeletal: General: Norm (more content not included)... Normal [facility] NURSNOTEon 08-29-2022 NURSNOTE Patient complaining of chest pain, cardiology notified. Cardiology also notified of patient's telemetry changes this AM. States will see him and let you know. RN will continue to monitor. Normal [facility] 30on 08-28-2022 30 The patient is Moderately Stable - Low risk of patient condition declining or worsening The patient's goals for the shift include no pain The clinical goals for the shift include VSS Problem: Pain - Adult Goal: Verbalizes/displays adequate comfort level or baseline comfort level Outcome: Progressing Flowsheets (Taken 08/28/20222104) Verbalizes/displays adequate comfort level or baseline comfort level: Encourage patient to monitor pain and request assistance Assess pain using appropriate pain scale Administer analgesics based on type and severity of pain and evaluate response Implement non-pharmacological measures as appropriate and evaluate response Consider cultural and social influences on pain and pain management Problem: Safety - Adult Goal: Free from fall injury Outcome: Progressing Problem: Discharge Planning Goal: Discharge to home or other facility with appropriate resources Outcome: Progressing Problem: Chronic Conditions and Co-morbidities Goal: Patient's chronic conditions and co-morbidity symptoms are monitored and maintained or improved Outcome: Progressing Normal [facility] 30 The patient is Moderately Stable - Low risk of patient condition declining or worsening The patient's goals for the shift include no pain The clinical goals for the shift include VSS Normal [facility] APTTon 08-28-2022 ACTIVATED PARTIAL THROMBOPLASTIN TIME IN PPP BY COAGULATION ASSAY 26.7 Seconds Normal 25.0-35.0 [facility] Comment on above: Performed By: #### L [id number] ####[facility] ([facility])[address] [place] [address] B-TYPE NATRIURETIC PEPTIDEon 08-28-2022 Natriuretic peptide B (Bld) [Mass/Vol] 23 pg/mL Normal 0-100 [facility] Comment on above: Performed By: #### L [id number] #### [facility] ([facility]) [address] [place] [address] CBC WITH AUTO DIFFERENTIALon 08-28-2022 Basophils (Bld) [#/Vol] 0.05 10*3/uL Normal 0.00-0.20 [facility] Comment on above: Performed By: #### L [id number] ####[facility] ([facility] [place] [address] Basophils/100 WBC (Bld) 0.7 % Normal 0.0-1.0 [facility] Comment on above: Performed By: #### L [id number] ####[facility] ([facility])[address] [place] [address] Eosinophils (Bld) [#/Vol] 0.15 10*3/uL Normal 0.00-0.50 [facility] Comment on above: Performed By: #### L [id number] ####[facility] [place] [address] Eosinophils/100 WBC (Bld) 2.0 % Normal 0.0-6.0 [facility] Comment on above: Performed By: #### L [id number] ####[facility] ([facility])[address] [place] [address] Erythrocyte distribution width (RBC) [Ratio] 12.8 % Normal 11.5-15.0 [facility] Comment on above: Performed By: #### L [id number] ####[facility] ([facility])[address] [place] [address] ERYTHROCYTE MEAN CORPUSCULAR HEMOGLOBIN CONCENTRATION (G/DL) BY AUTOMATED 33.5 g/dL Normal 32.0-35.0 [facility] Comment on above: Performed By: #### L [id number] ####[facility] ([facility] [place] [address] Hematocrit (Bld) [Volume fraction] 41.8 % Normal 39.0-55.0 [facility] Comment on above: Performed By: #### L [id number] ####[facility] ([facility])[address] [place] [address] Hemoglobin (Bld) [Mass/Vol] 14.0 g/dL Normal 13.0-17.0 [facility] Comment on above: Performed By: #### L [id number] ####[facility] ([facility])[address] [place] [address] Immature granulocytes (Bld) [#/Vol] 0.04 10*3/uL Normal 0.00-0.20 [facility] Comment on above: Performed By: #### L [id number] ####[facility] ([facility])[address] [place] [address] Immature granulocytes/100 WBC (Bld) 0.5 % Normal 0.0-1.0 [facility] Comment on above: Performed By: #### L [id number] ####[facility] ([facility])[address] [place] [address] Lymphocytes (Bld) [#/Vol] 1.75 10*3/uL Normal 1.20-4.00 [facility] Comment on above: Performed By: #### L [id number] ####[facility] ([facility])[address] [facility] [place] [address] Lymphocytes/100 WBC (Bld) 23.1 % Normal 20.0-45.0 [facility] Comment on above: Performed By: #### L [id number] ####[facility] ([facility])[address] [place] [address] MCH (RBC) [Entitic mass] 30.5 pg Normal 27.0-33.0 [facility] Comment on above: Performed By: #### L [id number] ####[facility] ([facility])[address] [place] [address] MCV (RBC) [Entitic vol] 91.1 fL Normal 82.0-98.0 [facility] Comment on above: Performed By: #### L [id number] ####[facility] ([facility])[address] [place] [address] Monocytes (Bld) [#/Vol] 0.66 10*3/uL Normal 0.10-1.00 [facility] Comment on above: Performed By: #### L [id number] ####[facility] ([facility])[address] [place] [address] Monocytes/100 WBC (Bld) 8.7 % Normal 5.0-12.0 [facility] Comment on above: Performed By: #### L [id number] ####[facility] ([facility])[address] [place] [address] Neutrophils (Bld) [#/Vol] 4.91 10*3/uL Normal 1.60-7.60 [facility] Comment on above: Performed By: #### L [id number] ####[facility] ([facility])[address] [place] [address] Neutrophils/100 WBC (Bld) 65.0 % Normal 40.0-72.0 [facility] Comment on above: Performed By: #### L [id number] ####[facility] ([facility])[address] [place] [address] NRBC (PER 100 WBCS) BY AUTOMATED COUNT 0.0 % Normal 0.0-0.0 [facility] Comment on above: Performed By: #### L [id number] ####[facility] ([facility])[address] [place] [address] PLATELETS (10*3/UL) IN BLOOD AUTOMATED COUNT 293 10*3/uL Normal 150-400 [facility] Comment on above: Performed By: #### L [id number] ####[facility] ([facility])[address] [place] [address] RBC (Bld) [#/Vol] 4.59 10*6/uL Normal 4.20-5.70 [facility] Comment on above: Performed By: #### L [id number] ####[facility] ([facility])[address] [place] [address] WBC (Bld) [#/Vol] 7.56 10*3/uL Normal 4.00-10.60 [facility] Comment on above: Performed By: #### L [id number] ####[facility] ([facility])[address] [place] [address] COMPREHENSIVE METABOLIC PANE Massimo 08-28-2022 Albumin [Mass/Vol] 4.6 g/dL Normal 3.5-5.7 [facility] Comment on above: Performed By: #### L [id number] #### [facility] ([facility]) [address] [place] [address] ALP [Catalytic activity/Vol] 95 U/L Normal 34-104 [facility] Comment on above: Performed By: #### L [id number] #### [facility] ([facility]) [address] [place] [address] ALT [Catalytic activity/Vol] 75 U/L High 7-52 [facility] Comment on above: Performed By: #### L [id number] #### [facility] ([facility]) [address] [place] [address] Anion gap [Moles/Vol] 12 mmol/L Normal 7-20 [facility] Comment on above: Performed By: #### L [id number] #### [facility] ([facility]) [address] [place] [address] AST [Catalytic activity/Vol] 28 U/L Normal 13-39 [facility] Comment on above: Performed By: #### L [id number] #### [facility] ([facility]) [address] [place] [address] Bilirubin [Mass/Vol] 0.7 mg/dL Normal 0.3-1.0 [facility] Comment on above: Performed By: #### L [id number] #### [facility] ([facility]) [address] [place] [address] Calcium [Mass/Vol] 9.8 mg/dL Normal 8.6-10.3 [facility] Comment on above: Performed By: #### L [id number] #### [facility] ([facility]) [address] [place] [address] Chloride [Moles/Vol] 104 mmol/L Normal 98-107 [facility] Comment on above: Performed By: #### L [id number] #### [facility] ([facility]) [address] [place] [address] CO2 [Moles/Vol] 27 mmol/L Normal 21-31 [facility] Comment on above: Performed By: #### L [id number] #### [facility] ([facility]) [address] [place] [address] Creatinine [Mass/Vol] 0.82 mg/dL Normal 0.70-1.30 [facility] Comment on above: Performed By: #### L [id number] #### [facility] ([facility]) [address] [facility] [address] GLOMERULAR FILTRATION RATE ML/MIN/1.73 SQ M.PREDICTED 109.0 mL/min/1.73m*2 Normal >60.0 [facility] Comment on above: Result Comment: The [facility]???s estimated glomerular filtration rate (eGFR) will no longer include consideration of race in its calculation. The National Kid[employer] Foundation???s eGFR Task Force developed new recommendations for the estimation of the glomerular filtration rate in the [place] They recommend immediate implementation of the new equation refit without the race variable in all laboratories because the calculation does not include race. In addition to not including race in the calculation and reporting, it included diversity in its development, and has acceptable performance characteristics and potential consequences that do not disproportionately affect any one group of individuals. Performed By: #### L [id number] #### [facility] ([facility]) [address] [place] [address] Glucose [Mass/Vol] 77 mg/dL Normal 70-100 [facility] Comment on above: Performed By: #### L [id number] #### [facility] ([facility]) [address] [place] [address] Potassium [Moles/Vol] 3.7 mmol/L Normal 3.5-5.1 [facility] Comment on above: Performed By: #### L [id number] #### [facility] ([facility]) [address] [facility] [address] Protein [Mass/Vol] 7.9 g/dL Normal 6.0-8.3 [facility] Comment on above: Performed By: #### L [id number] #### [facility]) [address] [place] [address] Sodium [Moles/Vol] 139 mmol/L Normal 136-145 [facility] Comment on above: Performed By: #### L [id number] #### [facility]) [address] [place] [address] Urea nitrogen [Mass/Vol] 11 mg/dL Normal 7-25 [facility] Comment on above: Performed By: #### L [id number] #### [facility]) [address] [facility] [place] [address] UREA NITROGEN/CREATININE (MASS RATIO) IN SER/PLAS 13.4 Normal [facility] Comment on above: Performed By: #### L [id number] #### [facility]) [address] [facility] [address] EDPROVon 08-28-2022 EDPROV HPI Chief Complaint Patient presents with Chest Pain Pt from home to [facility] with c/o generalized chest pain x2 weeks. Cardiology called on this pt. He had an abnormal stress test at [facility] yesterday. Pt reports lightheadedness and mild SOB with exertion. Patient presents on referral from the cardiology clinic. He has been having intermittent episodes of chest pain, lightheadedness, shortness of breath and nausea for approximately 2 weeks, no known trigger. Outpatient echo showed global hypokinesis and bilateral dilatation of the atria, patient had a stress test yesterday which was positive for ischemic change. He denies current chest pain, does report feeling mildly short of breath. We were contacted by the cardiology clinic and their plan is to have the patient admitted for cardiac catheterization today. Patient reports a history of hypertension, denies other pertinent medical history. Patient denies recent fevers, visual changes, leg swelling, vomiting, abdominal pain and changes to his bowel or bladder habits. Maria C Coma Scale Score: 15 Patient History Past Medical History: Diagnosis Date Hypertension Past Surgical History: Procedure Laterality Date HERNIA REPAIR No family history on file. Social History Tobacco Use Smoking status: Former Types: Cigarettes Start date: 2002 Quit date: 2008 Years since quittin.1 Smokeless tobacco: Never Substance Use Topics Alcohol use: Yes Drug use: Never Review of Systems Review of Systems Constitutional: Positive for fatigue. Negative for chills and fever. HENT: Negative for congestion, ear pain, rhinorrhea and sore throat. Eyes: Negative for pain and visual disturbance. Respiratory: Positive for shortness of breath. Negative for cough. Cardiovascular: Positive for chest pain. Negative for palpitations and leg swelling. Gastrointestinal: Positive for nausea. Negative for abdominal pain, constipation, diarrhea and vomiting. Genitourinary: Negative for decreased urine volume, dysuria, flank pain, hematuria and urgency. Musculoskeletal: Negative for back pain, neck pain and neck stiffness. Skin: Negative for color change and rash. Neurological: Positive for light-headedness and headaches. Negative for seizures, syncope and weakness. All other systems reviewed and are negative. Physical Exam ED Triage Vitals [08/28/22 1239] Temp Heart Rate Resp BP 36.4 ???C (97.6 ???F) 64 16 169/68 SpO2 Temp Source Heart Rate Source Patient Position 100 % Oral -- -- BP Location FiO2 (%) -- -- Physical Exam Vitals and nursing note reviewed. Constitutional: General: He is not in acute distress. Appearance: Normal appearance. He is well-developed. HENT: Head: Normocephalic and atraumatic. Nose: Nose normal. Mouth/Throat: Mouth: Mucous membranes are moist. Pharynx: Oropharynx is clear. Eyes: Extraocular Movements: Extraocular movements intact. Conjunctiva/sclera: Conjunctivae normal. Pupils: Pupils are equal, round, and reactive to light. Cardiovascular: Rate and Rhythm: Normal rate and regular rhythm. Pulses: Normal pulses. Radial pulses are 2+ on the right side and 2+ on the left side. Posterior tibial pulses are 2+ on the right side and 2+ on the left side. Heart sounds: Normal heart sounds. Pulmonary: Effort: Pulmonary effort is normal. No respiratory distress. Breath sounds: Normal breath sounds. Chest: Chest wall: No tenderness. Abdominal: General: Abdomen is flat. Palpations: Abdomen is soft. Tenderness: There is no abdominal tenderness. There is no right CVA tenderness, left CVA tenderness, guarding or rebound. Musculoskeletal: General: Normal range of motion. Cervical back: Normal range of motion and neck supple. Right lower leg: No edema. Left lower leg: No edema. Skin: General: Skin is warm and dry. Capillary Refill: Capillary refill takes less than 2 seconds. Neurological: General: No focal deficit present. Mental Status: He is alert and oriented to person, place, and time. Procedures ED Course & MDM ED Course as of 08/28/22 1527 WedAug 28, 2022 1358 Patient presents on referral from cardiology for unstable angina, plan is for catheterization today. Discussed the case with cardiology, they would like the patient admitted under the hospitalist. Basic labs, troponin and coags have been ordered, will discuss admission with the hospitalist. Patient is in agreement with the plan of care and amenable to admission at this time. [SF] ED Course User Index [SF] Tripp Pylehermelindo Diagnoses as of 08/28/22 152 Unstable angina ([facility]) Medical Decision Making Attestation: I performed a history and physical exam on this patient and discussed his or her management with the resident. I reviewed the resident's note and agree with the documented findings and plan of care with the following exceptions: Provider Statement ANEESH: Provider Statement [facility] [place] [facility] [place] (more content not included)... Normal [facility] MAGNESIUMon 08-28-2022 Magnesium [Mass/Vol] 2.1 mg/dL Normal 1.9-2.7 [facility] Comment on above: Performed By: #### L [id number] #### [facility]) [address] [place] [address] Office Visiton 08-28-2022 Follow-up visit [id number] Sujata Reyna 1975 M Date Provider Department Center 08/28/2022 Keshav-ISA RINCON CARD [facility] No family history on file Level of Service:99137 [place] OFFICE/OUTPATIENT NEW HIGH [facility] 60-74 MINUTES Reason for Visit and Comments: Establish Care [42] - Patient had a stress test 08/27/2022 and failed the test Normal [facility] PROTIME-INRon 08-28-2022 INR IN PPP BY COAGULATION ASSAY 1.08 Normal 0.90-1.10 [facility] Comment on above: Result Comment: ACCC P RECOMMENDED INR FOR WARFARIN THERAPY CONDITION INR PROPHYLAXIS OF VENOUS THROMBOSIS 2-3 (HIGH-RISK SURGERY) TREATMENT OF VENOUS THROMBOSIS 2-3 TREATMENT OF PULMONARY EMBOLISM 2-3 PREVENTION OF SYSTEMIC EMBOLISM: 2-3 ACUTE MYOCARDIAL INFARCTION TISSUE HEART VALVES VALVULAR HEART DISEASE ATRIAL FIBRILLATION RECURRENT SYSTEMIC EMBOLISM MECHANICAL HEART VALVE 2.5-3.5 FROM: ORAL ANTICOAGULANTS. MECHANISM OF ACTION, CLINICAL EFFECTIVENESS, AND OPTIMAL THERAPEUTIC RANGE. CHEST 1995;108:231S-246S. Performed By: #### L [id number] #### [facility] [address] [place] [address] PROTHROMBIN TIME (PT) IN PPP BY COAGULATION ASSAY 13.9 Seconds Normal 12.3-14.8 [facility] Comment on above: Performed By: #### L [id number] #### [facility] ([facility]) [address] [place] [address] TROPONIN Ion 08-28-2022 Troponin I.cardiac [Mass/Vol] 0.00 ng/mL Normal 0.00-0.04 [facility] Comment on above: Performed By: #### L [id number] #### [facility] ([facility]) [address] [place] [address] NM STRESS/REST MULTIon 08-27 NM STRESS/REST MULTI Patient: SUJATA REYNA Exam Date: 08/27/2022 : 1975 Gender:M Ordering : DR JOSH BACH . Admission #: [id number] Family : Order #: [id number] CLICK HERE TO VIEW EXAM RADIOLOGY REPORT PROCEDURE: RADIONUCLIDE IMAGING STRESS/REST MULTI COMPARISON: None. INDICATIONS: Near syncope, tachycardia, reduced ejection fraction TECHNIQUE: Exam Description: Stress/Rest one day protocol gated SPECT Rest Imagin.2 mCi Tc-99m Cardiolite IV on 08/27/2022 Stress Imaging 30.4 mCi Tc-99m Cardiolite IV on 08/27/2022 Exercise Protocol: 0.4 mg Lexiscan given IV Heart Rate (bpm): Rest: 59 Max: 153 PMHR: 88 Blood Pressure: Rest: 126/72 Max: 142/70 Exercise Time: Minutes: 9 Seconds: 00 Stage Reached: Stage: 3 Mets 10.1 Symptoms: Rest and peak stress ECG findings were non-diagnostic and the exercise portion of the study was Non-diagnostic per attending physician Dr. Osmin Vieira due to left bundle branch block. For more details please see separate cardiac stress test report. FINDINGS: QUALITY OF STUDY: Good. PERFUSION DEFECT: LOCATION: Basal anteroseptal. Basal inferoseptal. Basal inferior. Mid-inferoseptal. Mid-inferior. [place]. SIZE: Large (5 or more segments). SEVERITY: Moderate. TYPE: Persistent. WALL MOTION: Normal. LV SIZE: Enlarged; EDV 139 mL. TID / TCD: None; 0.8 LVEF: Abnormal. Calculated EF 49%. SUMMARY: Myocardial perfusion imaging study has ABNORMAL findings. CONCLUSION: 1. Moderate-sized areas of moderate severity perfusion abnormalities anterior wall, LAD distribution inferior wall RCA distribution with no reversible ischemia 2. Dilated left ventricle 3. Low left ventricular ejection of 49% Dictated by: Teressa Bridges MD on 08/27/2022 at 15:42 Approved by: Teressa Bridges MD on 08/27/2022 at 15:55 Normal [facility] CBC AUTO DIFFon 08-20-2022 BASO # 0.0 103/ul Normal 0.0-0.1 [facility] Comment on above: Performed By: #### M Noah BMP #### [facility] [address] [address] [address] Ivan Seo Basophils/100 WBC (Bld) 0.5 % Normal 0.2-2.0 [facility] Comment on above: Performed By: #### M Noah BMP #### [facility] [address] [address] [address] Ivan Seo EO # 0.2 103/ul Normal 0.0-0.7 [facility] Comment on above: Performed By: #### M G, BMP #### [facility] [address] [place] [address] Dr. Ivan Soe Eosinophils/100 WBC (Bld) 2.9 % Normal 0.9-7.0 [facility] Comment on above: Performed By: #### M G, BMP #### [facility] [address] [place] [address] Dr. Ivan Seo Erythrocyte distribution width (RBC) [Ratio] 13.0 % Normal 11.0-15.0 [facility] Comment on above: Performed By: #### M G, BMP #### [facility] [address] [place] [address] Dr. Ivan Seo Hematocrit (Bld) [Volume fraction] 41.4 % Critically low 42.0-54.0 [facility] Comment on above: Performed By: #### M G, BMP #### [facility] [address] [place] [address] Dr. Ivan Seo Hemoglobin (Bld) [Mass/Vol] 13.9 g/dL Critically low 14.0-18.0 [facility] Comment on above: Performed By: #### M G, BMP #### [facility] [address] [place] [address] Dr. Ivan Seo IG # 0.04 10e3/ul Critically high 0.00-0.03 [facility] Comment on above: Performed By: #### M G, BMP #### [facility] [address] [place] [address] Dr. Ivan Seo IG % 0.5 % Normal 0.0-0.5 [facility] Comment on above: Performed By: #### M G, BMP #### [facility] [address] [place] [address] Dr. Ivan Seo LYMPH # 2.2 103/ul Normal 1.2-3.8 [facility] Comment on above: Performed By: #### M G, BMP #### [facility] [address] [place] [address] Dr. Ivan Seo Lymphocytes/100 WBC (Bld) 29.2 % Normal 20.5-60.0 [facility] Comment on above: Performed By: #### M G, BMP #### [facility] [address] [place] [address] Dr. Ivan Seo MANUAL DIFF REQ NO Normal [facility] Comment on above: Performed By: #### M G, BMP #### [facility] [address] [place] [address] Dr. Ivan Seo MCH (RBC) [Entitic mass] 30.5 pg Normal 25.9-34.0 [facility] Comment on above: Performed By: #### M G, BMP #### [facility] [address] [place] [address] Dr. Ivan Seo MCHC (RBC) [Mass/Vol] 33.6 g/dL Normal 29.9-35.2 [facility] Comment on above: Performed By: #### M G, BMP #### [facility] [address] [place] [address] Dr. Ivan Seo MCV (RBC) [Entitic vol] 91.0 fL Normal 80.0-94.0 [facility] Comment on above: Performed By: #### M G, BMP #### [facility] [address] [place] [address] Dr. Ivan Seo MONO # 0.8 103/ul Normal 0.3-0.8 [facility] Comment on above: Performed By: #### M G, BMP #### [facility] [address] [place] [address] Dr. Ivan Seo Monocytes/100 WBC (Bld) 10.5 % Normal 1.7-12.0 [facility] Comment on above: Performed By: #### M G, BMP #### [facility] [address] [place] [address] Dr. Ivan Seo NEUT # 4.3 103/ul Normal 1.4-6.5 [facility] Comment on above: Performed By: #### M G, BMP #### [facility] [address] [place] [address] Dr. Ivan Seo Neutrophils/100 WBC (Bld) 56.4 % Normal 43.0-75.0 [facility] Comment on above: Performed By: #### M G, BMP #### [facility] [address] [place] [address] Dr. Ivan Seo Platelet mean volume (Bld) [Entitic vol] 9.3 fL Critically low 9.5-13.5 [facility] Comment on above: Performed By: #### M G, BMP #### [facility] [address] [place] [address] Dr. Ivan Seo PLT 264 103/ul Normal 150-450 [facility] Comment on above: Performed By: #### M G, BMP #### [facility] [address] [place] [address] Dr. Ivan Seo RBC 4.55 106/ul Critically low 4.70-6.10 [facility] Comment on above: Performed By: #### Neelima G, BMP #### [facility] [address] [place] [address] Dr. Ivan Seo WBC 7.7 103/ul Normal 4.0-11.0 [facility] Comment on above: Performed By: #### Neelima G, BMP #### [facility] [address] [place] [address] Dr. Ivan Seo MAGNESIUMon 08-20-2022 Magnesium [Mass/Vol] 2.0 mg/dL Normal 1.8-2.4 [facility] Comment on above: Performed By: #### Neelima G, BMP #### [facility] [address] [place] [address] Dr. Ivan Seo PROF CHEM 8 (BAS METB)on Anion gap [Moles/Vol] 12.9 mmol/L Normal [facility] Comment on above: Performed By: #### M G, BMP #### [facility] [address] [place] [address] Dr. Ivan Seo Calcium [Mass/Vol] 9.0 mg/dL Normal 8.5-10.1 [facility] Comment on above: Performed By: #### Neelima G, BMP #### [facility] [address] [address] [address] Ivan Seo Chloride [Moles/Vol] 104 mmol/L Normal 98-107 [facility] Comment on above: Performed By: #### M G, BMP #### [facility] [address] [place] [address] Dr. Ivan Seo CO2 [Moles/Vol] 24.9 mmol/L Normal 21.0-32.0 [facility] Comment on above: Performed By: #### M G, BMP #### [facility] [address] [place] [address] Dr. Ivan Seo Creatinine [Mass/Vol] 0.82 mg/dL Normal 0.70-1.30 [facility] Comment on above: Performed By: #### M G, BMP #### [facility] [address] [place] [address] Dr. Ivan Seo EGFR-AF DJIBOUTIAN >60 Normal >=60 [facility] Comment on above: Performed By: #### M G, BMP #### [facility] [address] [place] [address] Dr. Ivan Seo EGFR-NON AF DJIBOUTIAN >60 Normal >=60 [facility] Comment on above: Performed By: #### M G, BMP #### [facility] [address] [place] [address] Dr. Ivan Seo Glucose [Mass/Vol] 94 mg/dL Normal 74-[address] [facility] Comment on above: Performed By: #### M G, BMP #### [facility] [address] [place] [address] Dr. Ivan Seo Potassium [Moles/Vol] 3.8 mmol/L Normal 3.5-5.1 [facility] Comment on above: Performed By: #### M G, BMP #### [facility] [address] [place] [address] Dr. Ivan Seo Sodium [Moles/Vol] 138 mmol/L Normal 136-[address] [facility] Comment on above: Performed By: #### M G, BMP #### [facility] [address] [place] [address] Dr. Ivan Seo Urea nitrogen [Mass/Vol] 11.0 mg/dL Normal 7.0-18.0 [facility] Comment on above: Performed By: #### M G, BMP #### [facility] [address] [place] [address] Dr. Ivan Seo Urea nitrogen/Creatinine [Mass ratio] 13.4 mg/mg Normal [facility] Comment on above: Performed By: #### M G, BMP #### [facility] [address] [place] [address] Dr. Ivan Seo TROPONIN, HIGH SENSITIVITYon 08-20-2022 HSTROP 8.3 pg/mL Normal 4.0-76.1 [facility] Comment on above: Result Comment: CUT- OFF POINTS HAVE BEEN ESTABLISHED BASED ON THE FOURTH UNIVERSAL DEFINITIONS OF MYOCARDIAL INFARCTION. THE UPPER REFERENCE LIMIT (URL) OF TROPONIN, DEFINED THE 99TH PERCENTILE OF cTnI DISTRIBUTION IN A REFERENCE POPULATION, HAS BEEN CONFIRMED THE DECISION THRESHOLD FOR [place] DIAGNOSIS. Performed By: #### H STROPN, TSH, BNP, BMP #### [facility] [address] [place] [address] Dr. Ivan Seo CARDIAC EDWARDO 3-6on 3 CK [Catalytic activity/Vol] 110 U/L Normal 39-308 [facility] Comment on above: Performed By: #### H STROPN, TSH, BNP, BMP #### [facility] [address] [place] [address] Dr. Ivan Seo CK.MB [Mass/Vol] 0.77 ng/mL Normal <=3.60 [facility] Comment on above: Performed By: #### H STROPN, TSH, BNP, BMP #### [facility] [address] [place] [address] Dr. Ivan Seo HSTROP 6.1 pg/mL Normal 4.0-76.1 [facility] Comment on above: Result Comment: CUT- OFF POINTS HAVE BEEN ESTABLISHED BASED ON THE FOURTH UNIVERSAL DEFINITIONS OF MYOCARDIAL INFARCTION. THE UPPER REFERENCE LIMIT (URL) OF TROPONIN, DEFINED THE 99TH PERCENTILE OF cTnI DISTRIBUTION IN A REFERENCE POPULATION, HAS BEEN CONFIRMED THE DECISION THRESHOLD FOR [place] DIAGNOSIS. Performed By: #### H STROPN, TSH, BNP, BMP #### [facility] [address] [place] [address] Dr. Ivan Seo CK [Catalytic activity/Vol] 113 U/L Normal 39-308 [facility] Comment on above: Performed By: #### H STROPN, TSH, BNP, BMP #### [facility] [address] [place] [address] Dr. Ivan Seo CK.MB [Mass/Vol] 0.62 ng/mL Normal <=3.60 [facility] Comment on above: Performed By: #### H STROPN, TSH, BNP, BMP #### [facility] [address] [place] [address] Dr. Ivan Seo HSTROP 7.4 pg/mL Normal 4.0-76.1 [facility] Comment on above: Result Comment: CUT- OFF POINTS HAVE BEEN ESTABLISHED BASED ON THE FOURTH UNIVERSAL DEFINITIONS OF MYOCARDIAL INFARCTION. THE UPPER REFERENCE LIMIT (URL) OF TROPONIN, DEFINED THE 99TH PERCENTILE OF cTnI DISTRIBUTION IN A REFERENCE POPULATION, HAS BEEN CONFIRMED THE DECISION THRESHOLD FOR [place] DIAGNOSIS. Performed By: #### H STROPN, TSH, BNP, BMP #### [facility] [address] [place] [address] Dr. Ivan Seo CBC AUTO DIFFon 08-19-2022 BASO # 0.0 103/ul Normal 0.0-0.1 [facility] Comment on above: Performed By: #### H STROPN, TSH, BNP, BMP #### [facility] [address] [place] [address] Dr. Ivan Seo Basophils/100 WBC (Bld) 0.5 % Normal 0.2-2.0 [facility] Comment on above: Performed By: #### H STROPN, TSH, BNP, BMP #### [facility] [address] [place] [address] Dr. Ivan Seo EO # 0.2 103/ul Normal 0.0-0.7 [facility] Comment on above: Performed By: #### H STROPN, TSH, BNP, BMP #### [facility] [address] [place] [address] Dr. Ivan Seo Eosinophils/100 WBC (Bld) 2.9 % Normal 0.9-7.0 [facility] Comment on above: Performed By: #### H STROPN, TSH, BNP, BMP #### [facility] [address] [address] [address] Ivan Seo Erythrocyte distribution width (RBC) [Ratio] 12.7 % Normal 11.0-15.0 [facility] Comment on above: Performed By: #### H STROPN, TSH, BNP, BMP #### [facility] [address] [place] [address] Dr. Ivan Seo Hematocrit (Bld) [Volume fraction] 40.2 % Critically low 42.0-54.0 [facility] Comment on above: Performed By: #### H STROPN, TSH, BNP, BMP #### [facility] [address] [place] [address] Dr. Ivan Seo Hemoglobin (Bld) [Mass/Vol] 13.6 g/dL Critically low 14.0-18.0 [facility] Comment on above: Performed By: #### H STROPN, TSH, BNP, BMP #### [facility] [address] [address] [address] Ivan Seo IG # 0.06 10e3/ul Critically high 0.00-0.03 [facility] Comment on above: Performed By: #### H STROPN, TSH, BNP, BMP #### [facility] [address] [place] [address] Dr. Ivan Seo IG % 0.8 % Critically high 0.0-0.5 [facility] Comment on above: Performed By: #### H STROPN, TSH, BNP, BMP #### [facility] [address] [place] [address] Dr. Ivan Seo LYMPH # 2.0 103/ul Normal 1.2-3.8 [facility] Comment on above: Performed By: #### H STROPN, TSH, BNP, BMP #### [facility] [address] [place] [address] Dr. Ivan Seo Lymphocytes/100 WBC (Bld) 26.9 % Normal 20.5-60.0 [facility] Comment on above: Performed By: #### H STROPN, TSH, BNP, BMP #### [facility] [address] [place] [address] Dr. Ivan Seo MANUAL DIFF REQ NO Normal [facility] Comment on above: Performed By: #### H STROPN, TSH, BNP, BMP #### [facility] [address] [place] [address] Dr. Ivan Seo MCH (RBC) [Entitic mass] 30.4 pg Normal 25.9-34.0 [facility] Comment on above: Performed By: #### H STROPN, TSH, BNP, BMP #### [facility] [address] [place] [address] Dr. Ivan Seo MCHC (RBC) [Mass/Vol] 33.8 g/dL Normal 29.9-35.2 [facility] Comment on above: Performed By: #### H STROPN, TSH, BNP, BMP #### [facility] [address] [place] [address] Dr. Ivan Seo MCV (RBC) [Entitic vol] 89.9 fL Normal 80.0-94.0 [facility] Comment on above: Performed By: #### H STROPN, TSH, BNP, BMP #### [facility] [address] [place] [address] Dr. Ivan Seo MONO # 0.8 103/ul Normal 0.3-0.8 [facility] Comment on above: Performed By: #### H STROPN, TSH, BNP, BMP #### [facility] [address] [place] [address] Dr. Ivan Seo Monocytes/100 WBC (Bld) 9.9 % Normal 1.7-12.0 [facility] Comment on above: Performed By: #### H STROPN, TSH, BNP, BMP #### [facility] [address] [place] [address] Dr. Ivan Seo NEUT # 4.5 103/ul Normal 1.4-6.5 [facility] Comment on above: Performed By: #### H STROPN, TSH, BNP, BMP #### [facility] [address] [address] [address] Ivan Seo Neutrophils/100 WBC (Bld) 59.0 % Normal 43.0-75.0 [facility] Comment on above: Performed By: #### H STROPN, TSH, BNP, BMP #### [facility] [address] [address] [address] Ivan Seo Platelet mean volume (Bld) [Entitic vol] 9.1 fL Critically low 9.5-13.5 [facility] Comment on above: Performed By: #### H STROPN, TSH, BNP, BMP #### [facility] [address] [address] [address] Ivan Seo PLT 245 103/ul Normal 150-450 [facility] Comment on above: Performed By: #### H STROPN, TSH, BNP, BMP #### [facility] [address] [address] [address] Ivan Seo RBC 4.47 106/ul Critically low 4.70-6.10 [facility] Comment on above: Performed By: #### H STROPN, TSH, BNP, BMP #### [facility] [address] [place] [address] Dr. Ivan Seo WBC 7.6 103/ul Normal 4.0-11.0 [facility] Comment on above: Performed By: #### H STROPN, TSH, BNP, BMP #### [facility] [address] [place] [address] Dr. Ivan Seo DRUG SCREEN RAPID (URINE)on 08-19-2022 AMP Negative Normal NEGATIVE [facility] Comment on above: Performed By: #### H STROPN, TSH, BNP, BMP #### [facility] [address] [place] [address] Dr. Ivan Seo BAR Negative Normal NEGATIVE [facility] Comment on above: Performed By: #### H STROPN, TSH, BNP, BMP #### [facility] [address] [place] [address] Dr. Ivan Seo BUP Negative Normal NEGATIVE [facility] Comment on above: Performed By: #### H STROPN, TSH, BNP, BMP #### [facility] [address] [address] [address] Ivan Seo BZO Negative Normal NEGATIVE [facility] Comment on above: Performed By: #### H STROPN, TSH, BNP, BMP #### [facility] [address] [place] [address] Dr. Ivan Seo VONNIE Negative Normal NEGATIVE [facility] Comment on above: Performed By: #### H STROPN, TSH, BNP, BMP #### [facility] [address] [address] [address] Ivan Seo CUT-OFFS SEE BELOW Normal [facility] Comment on above: Result Comment: AMP (Amphetamine): 500ng/mL, BAR (Barbituates): 200 ng/mL, BZO (Benzodiazepines): 150 ng/mL, BUP (Buprenorphine): 10 ng/mL, VONNIE (Cocaine): 150 ng/mL, mAMP (Methamphetamine): 500 ng/mL, MTD (Methadone): 200 ng/mL, OPI (Opiates): 100 ng/mL, OXY (Oxycodone): 100 ng/mL, PCP (Phencyclidine): 25 ng/mL, PPX (Propoxyphene): 300 ng/mL, THC (Cannabinoids): 50 ng/mL, TCA (Trycyclic Antidepressants): 300 ng/mL Performed By: #### H STROPN, TSH, BNP, BMP #### [facility] [address] [place] [address] Dr. Ivan Seo DRUG CUT HEADER DRUG CLASS TEST SYST EM CUT-OFF CONCENTRATIONS ARE FOLLOWS: Normal [facility] Comment on above: Performed By: #### H STROPN, TSH, BNP, BMP #### [facility] [address] [place] [address] Dr. Ivan Seo mAMP Negative Normal NEGATIVE [facility] Comment on above: Performed By: #### H STROPN, TSH, BNP, BMP #### [facility] [address] [place] [address] Dr. Ivan Seo MTD Negative Normal NEGATIVE [facility] Comment on above: Performed By: #### H STROPN, TSH, BNP, BMP #### [facility] [address] [address] [address] Ivan Seo OPI Negative Normal NEGATIVE [facility] Comment on above: Performed By: #### H STROPN, TSH, BNP, BMP #### [facility] [address] [address] [address] Ivan Seo OXY Negative Normal NEGATIVE [facility] Comment on above: Performed By: #### H STROPN, TSH, BNP, BMP #### [facility] [address] [address] [address] Ivan Seo PCP Negative Normal NEGATIVE [facility] Comment on above: Performed By: #### H STROPN, TSH, BNP, BMP #### [facility] [address] [address] [address] Ivan Seo PPX Negative Normal NEGATIVE [facility] Comment on above: Performed By: #### H STROPN, TSH, BNP, BMP #### [facility] [address] [address] [address] Ivan Seo TCA Negative Normal NEGATIVE [facility] Comment on above: Performed By: #### H STROPN, TSH, BNP, BMP #### [facility] [address] [place] [address] Dr. Ivan Seo THC Negative Normal NEGATIVE [facility] Comment on above: Performed By: #### H STROPN, TSH, BNP, BMP #### [facility] [address] [place] [address] Dr. Ivan Seo ECHOCARDIO M/2D COMPLETEon 0 08-19-2022 ECHOCARDIO M/2D COMPLETE Patient: SUJATA REYNA Exam Date: 08/19/2022 : 1975 Gender:M Ordering : DR JOSH BACH . Admission #: [id number] Family : Order #: [id number] CLICK HERE TO VIEW EXAM ECHOCARDIOGRAM REPORT PROCEDURE: CARDIO PULMONARY ECHOCARDIO M/2D COMP INDICATIONS: Palpitation, Near syncope, Abnormal EKG COMPARISON: None. DESCRIPTION: COMPLETE ECHOCARDIOGRAM Real-time transthoracic echocardiography with 2D, M-mode, spectral and color flow Doppler performed. QUALITY: Technical quality was good. LEFT VENTRICLE: Normal chamber size. Normal left ventricular wall thickness. LV EF: Global left ventricular systolic is mildly reduced; ejection fraction is estimated to be 45 to 50%. Abnormal septal motion; likely related to underlying bundle branch block. DIASTOLIC: Mild diastolic dysfunction. ATRIAL SEPTUM: Inadequately seen. LEFT ATRIUM: Mild dilatation. RIGHT ATRIUM: Mild dilatation. RIGHT VENTRICLE: Normal chamber size. Normal right ventricular systolic function. TRICUSPID VALVE: Normal mobility and thickness. No stenosis with trivial regurgitation. No evidence of pulmonary hypertension. RVSP 30mmHg MITRAL VALVE: Normal mobility and thickness. No mitral valve prolapse. No evidence of mitral valve stenosis. Trivial mitral regurgitation. AORTIC VALVE: Normal trileaflet appearance. No visible sclerosis. Normal leaflet mobility. No evidence of aortic valve stenosis. No aortic regurgitation. AORTIC ROOT: Normal diameter and appearance. PULMONIC VALVE: Normal thickness and mobility. No stenosis. Trivial regurgitation. PERICARDIUM: Trivial pericardial effusion. IVC: Collapses with inspirations. Mild dilatation measuring 2.3cm. CONCLUSION: Global left ventricular systolic function is mildly reduced; visually estimated ejection fraction is 45 to 50%. Abnormal septal motion. Mild diastolic dysfunction. Biatrial enlargement. The right ventricle is normal in size and systolic function. No significant valvular abnormalities. Trivial pericardial effusion. Adult Echocardiography Procedure Report Left Ventricle LVEDD (3.7 - 5.6 cm): 5.48 cm LVESD (2.2 - 4.0 cm): 4.10 cm LVIVS thickness (0.6 - 1.2 cm): 0.92 cm LVPW thickness (0.5 - 1.0 cm): 0.80 cm e': 0.10 m/s E - e': 9.70 LVOT Max Gradient: 2.56 mm[Hg] Peak Velocity (LVOT): 0.80 m/s Mean Velocity (LVOT): 0.53 m/s LVOT Diameter 2.05 cm Left Ventricular Ejection Fraction: 49.07 %, 49.07 % Left Atrium LA Volume Index (2D A2C): 79.45 ml, 79.45 ml Left Atrium Systolic Dimension: 4.95 cm Mitral Valve MV E to A Ratio: 1.06 Mitral Valve A-Wave Peak Velocity: 0.90 m/s Mitral Valve E-Wave Peak Velocity: 0.95 m/s Right Ventricle RV Internal Diastolic Dimension: 3.65 cm Aorta AO Root Diam: 2.74 cm Ascending Ao Diam: 2.55 cm Aortic Valve AoV Area (Peak [place]): 1.97 cm2, 1.97 cm2 AoV Area (VTI): 1.87 cm2, 1.87 cm2 Peak Velocity(Antegrade Flow): 1.34 m/s Peak Gradient(Antegrade Flow): 7.18 mm[Hg] Mean Velocity(Antegrade Flow): 0.94 m/s Mean Gradient(Antegrade Flow): 4.02 mm[Hg] Velocity Time Integral: 25.98 cm Tricuspid Valve Peak Velocity (Regurgitant Flow): 1.58 m/s, 2.09 m/s, 2.35 m/s Pulmonic Valve Peak Velocity: 1.30 m/s, 1.48 m/s Peak Gradient: 6.75 mm[Hg], 8.72 mm[Hg] Right Atrium Right Atrium Systolic Pressure: 45.76 ml, 45.76 ml Dictated by: Puja Cloon M.D. on 08/19/2022 at 12:31 Approved by: Puja Colon M.D. on 08/19/2022 at 12:34 Normal [facility] LIPID PROFILEon 08-19-2022 CHOL-HDL RATIO NORM SEE BELOW Normal [facility] [place] Comment on above: Result Comment: 3.3 - 4.4 LOW RISK 4.4 - 7.1 AVERAGE RISK 7.1 - 11.0 MODERATE RISK >11.0 HIGH RISK Performed By: #### H STROPN, TSH, BNP, BMP #### [facility] [address] [place] [address] Dr. Ivan Seo Cholesterol [Mass/Vol] 213 mg/dL Critically high <=200 [facility] Comment on above: Performed By: #### H STROPN, TSH, BNP, BMP #### [facility] [address] [address] [address] Ivan Seo Cholesterol in HDL [Mass/Vol] 40 mg/dL Normal 40-60 [facility] Comment on above: Performed By: #### H STROPN, TSH, BNP, BMP #### [facility] [address] [address] [address] Ivan Seo Cholesterol in LDL [Mass/Vol] 147.0 mg/dL Normal [facility] Comment on above: Performed By: #### H STROPN, TSH, BNP, BMP #### [facility] [address] [address] [address] Ivan Seo Cholesterol.total/Ch olesterol in HDL [Mass ratio] 5.3 {ratio} Normal [facility] Comment on above: Performed By: #### H STROPN, TSH, BNP, BMP #### [facility] [address] [address] [address] Ivan Seo HDL NORMAL > or = 60 mg/dl - LO W CARDIOVASCULAR RISK <40 mg/dl - HIGH CARDIOVASCULAR RISK Normal [facility] Comment on above: Performed By: #### H STROPN, TSH, BNP, BMP #### [facility] [address] [address] [address] Ivan Seo LDL CALC NORMAL SEE BELOW Normal [facility] Comment on above: Result Comment: <100 mg/dl OPTIMAL 100 - 129 mg/dl NEAR OR ABOVE OPTIMAL 130 - 159 mg/dl BORDERLINE HIGH 160 - 189 mg/dl HIGH >190 mg/dl VERY HIGH Performed By: #### H STROPN, TSH, BNP, BMP #### [facility] [address] [address] [address] Ivan Seo Triglyceride [Mass/Vol] 130 mg/dL Normal <=150 [facility] Comment on above: Performed By: #### H STROPN, TSH, BNP, BMP #### [facility] [address] [address] [address] Ivan Seo VLDL CALC 26.0 mg/dL Normal [facility] Comment on above: Performed By: #### H STROPN, TSH, BNP, BMP #### [facility] [address] [address] [address] Ivan Seo MAGNESIUMon 08-19-2022 Magnesium [Mass/Vol] 2.0 mg/dL Normal 1.8-2.4 [facility] Comment on above: Performed By: #### H STROPN, TSH, BNP, BMP #### [facility] [address] [place] [address] Dr. Ivan Seo PROF CHEM 8 (BAS METB)on Anion gap [Moles/Vol] 12.5 mmol/L Normal [facility] Comment on above: Performed By: #### H STROPN, TSH, BNP, BMP #### [facility] [address] [address] [address] Ivan Seo Calcium [Mass/Vol] 8.8 mg/dL Normal 8.5-10.1 [facility] Comment on above: Performed By: #### H STROPN, TSH, BNP, BMP #### [facility] [address] [address] [address] Ivan Seo Chloride [Moles/Vol] 104 mmol/L Normal 98-107 [facility] Comment on above: Performed By: #### H STROPN, TSH, BNP, BMP #### [facility] [address] [place] [address] Dr. Ivan Seo CO2 [Moles/Vol] 26.4 mmol/L Normal 21.0-32.0 [facility] Comment on above: Performed By: #### H STROPN, TSH, BNP, BMP #### [facility] [address] [address] [address] Ivan Seo Creatinine [Mass/Vol] 0.89 mg/dL Normal 0.70-1.30 [facility] Comment on above: Performed By: #### H STROPN, TSH, BNP, BMP #### [facility] [address] [address] [address] Ivan Seo EGFR-AF DJIBOUTIAN >60 Normal >=60 [facility] Comment on above: Performed By: #### H STROPN, TSH, BNP, BMP #### [facility] [address] [address] [address] Ivan Seo EGFR-NON AF DJIBOUTIAN >60 Normal >=60 [facility] Comment on above: Performed By: #### H STROPN, TSH, BNP, BMP #### [facility] [address] [address] [address] Ivan Seo Glucose [Mass/Vol] 103 mg/dL Normal 74-[address] [facility] Comment on above: Performed By: #### H STROPN, TSH, BNP, BMP #### [facility] [address] [place] [address] Dr. Ivan Seo Potassium [Moles/Vol] 3.9 mmol/L Normal 3.5-5.1 [facility] Comment on above: Performed By: #### H STROPN, TSH, BNP, BMP #### [facility] [address] [place] [address] Dr. Ivan Seo Sodium [Moles/Vol] 139 mmol/L Normal 136-[address] [facility] Comment on above: Performed By: #### H STROPN, TSH, BNP, BMP #### [facility] [address] [place] [address] Dr. Ivan Seo Urea nitrogen [Mass/Vol] 12.0 mg/dL Normal 7.0-18.0 [facility] Comment on above: Performed By: #### H STROPN, TSH, BNP, BMP #### [facility] [address] [place] [address] Dr. Ivan Seo Urea nitrogen/Creatinine [Mass ratio] 13.5 mg/mg Normal [facility] Comment on above: Performed By: #### H STROPN, TSH, BNP, BMP #### [facility] [address] [place] [address] Dr. Ivan Seo BNPon 08-18-2022 Natriuretic peptide B (Bld) [Mass/Vol] 77.0 pg/mL Normal <=450.0 [facility] Comment on above: Performed By: #### H STROPN, TSH, BNP, BMP #### [facility] [address] [place] [address] Dr. Ivan Seo CBC AUTO DIFFon 08-18-2022 BASO # 0.0 103/ul Normal 0.0-0.1 [facility] Comment on above: Performed By: #### H STROPN, TSH, BNP, BMP #### [facility] [address] [place] [address] Dr. Ivan Seo Basophils/100 WBC (Bld) 0.4 % Normal 0.2-2.0 [facility] Comment on above: Performed By: #### H STROPN, TSH, BNP, BMP #### [facility] [address] [place] [address] Dr. Ivan Seo EO # 0.2 103/ul Normal 0.0-0.7 [facility] Comment on above: Performed By: #### H STROPN, TSH, BNP, BMP #### [facility] [address] [place] [address] Dr. Ivan Seo Eosinophils/100 WBC (Bld) 2.7 % Normal 0.9-7.0 [facility] Comment on above: Performed By: #### H STROPN, TSH, BNP, BMP #### [facility] [address] [place] [address] Dr. Ivan Seo Erythrocyte distribution width (RBC) [Ratio] 12.7 % Normal 11.0-15.0 [facility] Comment on above: Performed By: #### H STROPN, TSH, BNP, BMP #### [facility] [address] [place] [address] Dr. Ivan Seo Hematocrit (Bld) [Volume fraction] 39.8 % Critically low 42.0-54.0 [facility] Comment on above: Performed By: #### H STROPN, TSH, BNP, BMP #### [facility] [address] [place] [address] Dr. Ivan Seo Hemoglobin (Bld) [Mass/Vol] 13.9 g/dL Critically low 14.0-18.0 [facility] Comment on above: Performed By: #### H STROPN, TSH, BNP, BMP #### [facility] [address] [place] [address] Dr. Ivan Seo IG # 0.04 10e3/ul Critically high 0.00-0.03 [facility] Comment on above: Performed By: #### H STROPN, TSH, BNP, BMP #### [facility] [address] [place] [address] Dr. Ivan Seo IG % 0.5 % Normal 0.0-0.5 [facility] Comment on above: Performed By: #### H STROPN, TSH, BNP, BMP #### [facility] [address] [place] [address] Dr. Ivan Seo LYMPH # 2.4 103/ul Normal 1.2-3.8 [facility] Comment on above: Performed By: #### H STROPN, TSH, BNP, BMP #### [facility] [address] [place] [address] Dr. Ivan Seo Lymphocytes/100 WBC (Bld) 29.4 % Normal 20.5-60.0 [facility] Comment on above: Performed By: #### H STROPN, TSH, BNP, BMP #### [facility] [address] [place] [address] Dr. Ivan Seo MANUAL DIFF REQ NO Normal [facility] Comment on above: Performed By: #### H STROPN, TSH, BNP, BMP #### [facility] [address] [place] [address] Dr. Ivan Seo MCH (RBC) [Entitic mass] 31.1 pg Normal 25.9-34.0 [facility] Comment on above: Performed By: #### H STROPN, TSH, BNP, BMP #### [facility] [address] [place] [address] Dr. Ivan Seo MCHC (RBC) [Mass/Vol] 34.9 g/dL Normal 29.9-35.2 [facility] Comment on above: Performed By: #### H STROPN, TSH, BNP, BMP #### [facility] [address] [place] [address] Dr. Ivan Seo MCV (RBC) [Entitic vol] 89.0 fL Normal 80.0-94.0 [facility] Comment on above: Performed By: #### H STROPN, TSH, BNP, BMP #### [facility] [address] [place] [address] Dr. Ivan Seo MONO # 0.8 103/ul Normal 0.3-0.8 [facility] Comment on above: Performed By: #### H STROPN, TSH, BNP, BMP #### [facility] [address] [address] [address] Ivan Seo Monocytes/100 WBC (Bld) 9.4 % Normal 1.7-12.0 [facility] Comment on above: Performed By: #### H STROPN, TSH, BNP, BMP #### [facility] [address] [address] [address] Ivan Seo NEUT # 4.8 103/ul Normal 1.4-6.5 [facility] Comment on above: Performed By: #### H STROPN, TSH, BNP, BMP #### [facility] [address] [address] [address] Ivan Seo Neutrophils/100 WBC (Bld) 57.6 % Normal 43.0-75.0 [facility] Comment on above: Performed By: #### H STROPN, TSH, BNP, BMP #### [facility] [address] [place] [address] Dr. Ivan Seo Platelet mean volume (Bld) [Entitic vol] 9.2 fL Critically low 9.5-13.5 [facility] Comment on above: Performed By: #### H STROPN, TSH, BNP, BMP #### [facility] [address] [address] [address] Ivan Seo PLT 262 103/ul Normal 150-450 [facility] Comment on above: Performed By: #### H STROPN, TSH, BNP, BMP #### [facility] [address] [address] [address] Ivan Seo RBC 4.47 106/ul Critically low 4.70-6.10 [facility] Comment on above: Performed By: #### H STROPN, TSH, BNP, BMP #### [facility] [address] [address] [address] Ivan Seo WBC 8.3 103/ul Normal 4.0-11.0 [facility] Comment on above: Performed By: #### H STROPN, TSH, BNP, BMP #### [facility] [address] [address] [address] Ivan Seo Covid-19 PCR (CVDTB)on 07-30 SARS-CoV-2 (COVID-19) RNA THONG+probe Ql (Unsp spec) Not detected Normal NOT DETECTED [facility] Comment on above: Result Comment: When diagnostic testing is negative, the possibility of a false negative should be considered in the context of a patient's recent exposures and the presence of clinical signs and symptoms consistent with SARS-CoV-2. This test is not yet approved or cleared by the [place] FDA. When there are no FDA-approved or cleared tests available, and other criteria are met, FDA can make tests available under an emergency access mechanism called an Emergency Use Authorization (EUA). The EUA for this test is supported by the [employer] of Health and Human Service's declaration that circumstances exist to justify the emergency use of in vitro diagnostics for the detection and/or diagnosis of the virus that causes COVID-19. This EUA will remain in effect for the duration of the COVID-19 declaration justifying emergency of IVDs, unless it is terminated or revoked by the FDA (after which the test may no longer be used). Performed By: #### H STROPN, TSH, BNP, BMP #### [facility] [address] [place] [address] Dr. Ivan Seo FREE T3on 08-18-2022 FREE T3 3.10 pg/mlL Normal 2.18-3.98 [facility] Comment on above: Performed By: #### M G, BMP #### [facility] [address] [place] [address] Dr. Ivan Seo FREE T4on 08-18-2022 Free T4 [Mass/Vol] 0.90 ng/dL Normal 0.76-1.[address] [facility] Comment on above: Performed By: #### M G, BMP #### [facility] [address] [place] [address] Dr. Ivan Seo PROF CHEM 8 (BAS METB)on Anion gap [Moles/Vol] 10.4 mmol/L Normal [facility] Comment on above: Performed By: #### H STROPN, TSH, BNP, BMP #### [facility] [address] [place] [address] Dr. Ivan Seo Calcium [Mass/Vol] 9.1 mg/dL Normal 8.5-10.1 [facility] Comment on above: Performed By: #### H STROPN, TSH, BNP, BMP #### [facility] [address] [address] [address] Ivan Seo Chloride [Moles/Vol] 101 mmol/L Normal 98-107 [facility] Comment on above: Performed By: #### H STROPN, TSH, BNP, BMP #### [facility] [address] [address] [address] Ivan Seo CO2 [Moles/Vol] 30.1 mmol/L Normal 21.0-32.0 [facility] Comment on above: Performed By: #### H STROPN, TSH, BNP, BMP #### [facility] [address] [place] [address] Dr. Ivan Seo Creatinine [Mass/Vol] 0.97 mg/dL Normal 0.70-1.30 [facility] Comment on above: Performed By: #### H STROPN, TSH, BNP, BMP #### [facility] [address] [address] [address] Ivan Seo EGFR-AF DJIBOUTIAN >60 Normal >=60 [facility] Comment on above: Performed By: #### H STROPN, TSH, BNP, BMP #### [facility] [address] [place] [address] Dr. Ivan Seo EGFR-NON AF DJIBOUTIAN >60 Normal >=60 [facility] Comment on above: Performed By: #### H STROPN, TSH, BNP, BMP #### [facility] [address] [address] [address] Ivan Seo Glucose [Mass/Vol] 109 mg/dL Critically high 74-106 [facility] Comment on above: Performed By: #### H STROPN, TSH, BNP, BMP #### [facility] [address] [place] [address] Dr. Ivan Seo Potassium [Moles/Vol] 3.5 mmol/L Normal 3.5-5.1 [facility] Comment on above: Performed By: #### H STROPN, TSH, BNP, BMP #### [facility] [address] [place] [address] Dr. Ivan Seo Sodium [Moles/Vol] 138 mmol/L Normal 136-145 [facility] Comment on above: Performed By: #### H STROPN, TSH, BNP, BMP #### [facility] [address] [place] [address] Dr. Ivan Seo Urea nitrogen [Mass/Vol] 17.0 mg/dL Normal 7.0-18.0 [facility] Comment on above: Performed By: #### H STROPN, TSH, BNP, BMP #### [facility] [address] [place] [address] Dr. Ivan Seo Urea nitrogen/Creatinine [Mass ratio] 17.5 mg/mg Normal [facility] Comment on above: Performed By: #### H STROPN, TSH, BNP, BMP #### [facility] [address] [place] [address] Dr. Ivan Seo TROPONIN, HIGH SENSITIVITYon 08-18-2022 HSTROP 5.7 pg/mL Normal 4.0-76.1 [facility] Comment on above: Result Comment: CUT- OFF POINTS HAVE BEEN ESTABLISHED BASED ON THE FOURTH UNIVERSAL DEFINITIONS OF MYOCARDIAL INFARCTION. THE UPPER REFERENCE LIMIT (URL) OF TROPONIN, DEFINED THE 99TH PERCENTILE OF cTnI DISTRIBUTION IN A REFERENCE POPULATION, HAS BEEN CONFIRMED THE DECISION THRESHOLD FOR [place] DIAGNOSIS. Performed By: #### H STROPN, TSH, BNP, BMP #### [facility] [address] [place] [address] Dr. Ivan Seo HSTROP 6.8 pg/mL Normal 4.0-76.1 [facility] Comment on above: Result Comment: CUT- OFF POINTS HAVE BEEN ESTABLISHED BASED ON THE FOURTH UNIVERSAL DEFINITIONS OF MYOCARDIAL INFARCTION. THE UPPER REFERENCE LIMIT (URL) OF TROPONIN, DEFINED THE 99TH PERCENTILE OF cTnI DISTRIBUTION IN A REFERENCE POPULATION, HAS BEEN CONFIRMED THE DECISION THRESHOLD FOR [place] DIAGNOSIS. Performed By: #### H STROPN, TSH, BNP, BMP #### [facility] [address] [place] [address] Dr. Ivan Seo TSHon 08-18-2022 TSH 3.636 uIU/mL Normal 0.358-3.740 [facility] Comment on above: Performed By: #### H STROPN, TSH, BNP, BMP #### [facility] [address] [address] [address] Ivan Seo XR CHEST 1 Von 08-18-2022 XR CHEST 1 V EXAM: XR CHEST 1 V a t 1937 hours HISTORY: Palpitations COMPARISON: None. TECHNIQUE: AP upright portable chest x-ray FINDINGS: Heart is near the upper limits of normal in size and the vasculature is not distended. No acute infiltrate, effusion or pneumothorax is identified. The osseous structures are grossly intact. IMPRESSION: No acute infiltrate or evidence of cardiac decompensation. Direct comparison with a previous study would be helpful in determining the chronicity of these findings. Electronically authenticated by: ELENA KNIGHT Date: 2022-08-18 20:09 Normal [facility] Consultation Noteon 06-12-20 Consultation Note [id number]#1.00C D:127 Normal [facility] Lab Reportson 06-12-2022 Lab Reports [id number]#1.00C D:127 Normal [facility] Lab Reports [id number]#1.00C D:127 Normal [facility] Lab Reports [id number]#1.00C D:127 Normal [facility] Patient Correspondenceon Patient Correspondence [id number]#1.00C D:127 Normal [facility] CBC AUTO DIFFon 06-05-2022 BASO # 0.0 103/ul Normal 0.0-0.1 [facility] Comment on above: Performed By: #### H STROPN, TSH, BNP, BMP #### [facility] [address], [place] [address] Dr. Ivan Seo Basophils/100 WBC (Bld) 0.5 % Normal 0.2-2.0 [facility] Comment on above: Performed By: #### H STROPN, TSH, BNP, BMP #### [facility] [address] [place] [address] Dr. Ivan Seo EO # 0.2 103/ul Normal 0.0-0.7 [facility] Comment on above: Performed By: #### H STROPN, TSH, BNP, BMP #### [facility] [address] [place] [address] Dr. Ivan Seo Eosinophils/100 WBC (Bld) 2.1 % Normal 0.9-7.0 [facility] Comment on above: Performed By: #### H STROPN, TSH, BNP, BMP #### [facility] [address] [place] [address] Dr. Ivan Seo Erythrocyte distribution width (RBC) [Ratio] 13.1 % Normal 11.0-15.0 [facility] Comment on above: Performed By: #### H STROPN, TSH, BNP, BMP #### [facility] [address] [place] [address] Dr. Ivan Seo Hematocrit (Bld) [Volume fraction] 41.7 % Critically low 42.0-54.0 [facility] Comment on above: Performed By: #### H STROPN, TSH, BNP, BMP #### [facility] [address] [place] [address] Dr. Ivan Seo Hemoglobin (Bld) [Mass/Vol] 14.2 g/dL Normal 14.0-18.0 [facility] Comment on above: Performed By: #### H STROPN, TSH, BNP, BMP #### [facility] [address] [place] [address] Dr. Ivan Seo IG # 0.06 10e3/ul Critically high 0.00-0.03 [facility] Comment on above: Performed By: #### H STROPN, TSH, BNP, BMP #### [facility] [address] [place] [address] Dr. Ivan Seo IG % 0.8 % Critically high 0.0-0.5 [facility] Comment on above: Performed By: #### H STROPN, TSH, BNP, BMP #### [facility] [address] [address] [address] Ivan Seo LYMPH # 1.8 103/ul Normal 1.2-3.8 [facility] Comment on above: Performed By: #### H STROPN, TSH, BNP, BMP #### [facility] [address] [place] [address] Dr. Ivan Seo Lymphocytes/100 WBC (Bld) 23.4 % Normal 20.5-60.0 [facility] Comment on above: Performed By: #### H STROPN, TSH, BNP, BMP #### [facility] [address] [place] [address] Dr. Ivan Seo MANUAL DIFF REQ NO Normal [facility] Comment on above: Performed By: #### H STROPN, TSH, BNP, BMP #### [facility] [address] [place] [address] Dr. Ivan Seo MCH (RBC) [Entitic mass] 30.8 pg Normal 25.9-34.0 [facility] Comment on above: Performed By: #### H STROPN, TSH, BNP, BMP #### [facility] [address] [place] [address] Dr. Ivan Seo MCHC (RBC) [Mass/Vol] 34.1 g/dL Normal 29.9-35.2 [facility] Comment on above: Performed By: #### H STROPN, TSH, BNP, BMP #### [facility] [address] [place] [address] Dr. Ivan Seo MCV (RBC) [Entitic vol] 90.5 fL Normal 80.0-94.0 [facility] Comment on above: Performed By: #### H STROPN, TSH, BNP, BMP #### [facility] [address] [place] [address] Dr. Ivan Seo MONO # 1.1 103/ul Critically high 0.3-0.8 [facility] Comment on above: Performed By: #### H STROPN, TSH, BNP, BMP #### [facility] [address] [place] [address] Dr. Ivan Seo Monocytes/100 WBC (Bld) 14.2 % Critically high 1.7-12.0 [facility] Comment on above: Performed By: #### H STROPN, TSH, BNP, BMP #### [facility] [address] [address] [address] Ivan Seo NEUT # 4.4 103/ul Normal 1.4-6.5 [facility] Comment on above: Performed By: #### H STROPN, TSH, BNP, BMP #### [facility] [address] [place] [address] Dr. Ivan Seo Neutrophils/100 WBC (Bld) 59.0 % Normal 43.0-75.0 [facility] Comment on above: Performed By: #### H STROPN, TSH, BNP, BMP #### [facility] [address] [place] [address] Dr. Ivan Seo Platelet mean volume (Bld) [Entitic vol] 9.2 fL Critically low 9.5-13.5 [facility] Comment on above: Performed By: #### H STROPN, TSH, BNP, BMP #### [facility] [address] [place] [address] Dr. Ivan Seo PLT 277 103/ul Normal 150-450 [facility] Comment on above: Performed By: #### H STROPN, TSH, BNP, BMP #### [facility] [address] [place] [address] Dr. Ivan Seo RBC 4.61 106/ul Critically low 4.70-6.10 [facility] Comment on above: Performed By: #### H STROPN, TSH, BNP, BMP #### [facility] [address] [place] [address] Dr. Ivan Seo WBC 7.5 103/ul Normal 4.0-11.0 [facility] Comment on above: Performed By: #### H STROPN, TSH, BNP, BMP #### [facility] [address] [place] [address] Dr. Ivan Seo FREE T3on 06-05-2022 FREE T3 3.34 pg/mlL Normal 2.18-3.98 [facility] Comment on above: Performed By: #### M G, BMP #### [facility] [address] [address] [address] Ivan Seo GLYCOHEMOGLOBIN A1Con 2021 ADA RECOMMENDATION SEE BELOW Normal [facility] Comment on above: Result Comment: ADA RECOMMENDED LIMIT 4.0 - 6.0 ADA THERAPEUTIC TARGET < 7.0 ACTION SUGGESTED > 7.0 Performed By: #### H STROPN, TSH, BNP, BMP #### [facility] [address] [address] [address] Ivan Seo Glucose [Mass/Vol] 114 mg/dL Normal [facility] Comment on above: Performed By: #### H STROPN, TSH, BNP, BMP #### [facility] [address] [place] [address] Dr. Ivan Seo HbA1c (Bld) [Mass fraction] 5.6 % Normal 4.5-6.2 [facility] Comment on above: Performed By: #### H STROPN, TSH, BNP, BMP #### [facility] [address] [address] [address] Ivan Seo LIPID PROFILEon 06-05-2022 CHOL-HDL RATIO NORM SEE BELOW Normal [facility] Comment on above: Result Comment: 3.3 - 4.4 LOW RISK 4.4 - 7.1 AVERAGE RISK 7.1 - 11.0 MODERATE RISK >11.0 HIGH RISK Performed By: #### C MP, TSH, FT3, T4, LIPID #### [facility] [address] [place] [address] Dr. Ivan Seo Cholesterol [Mass/Vol] 207 mg/dL Critically high <=200 [facility] Comment on above: Performed By: #### C MP, TSH, FT3, T4, LIPID #### [facility] [address] [address] [address] Ivan Seo Cholesterol in HDL [Mass/Vol] 46 mg/dL Normal 40-60 [facility] Comment on above: Performed By: #### C MP, TSH, FT3, T4, LIPID #### [facility] [address] [address] [address] Ivan Seo Cholesterol in LDL [Mass/Vol] 142.8 mg/dL Normal [facility] Comment on above: Performed By: #### C MP, TSH, FT3, T4, LIPID #### [facility] [address] [address] [address] Ivan Seo Cholesterol.total/Ch olesterol in HDL [Mass ratio] 4.5 {ratio} Normal [facility] Comment on above: Performed By: #### C MP, TSH, FT3, T4, LIPID #### [facility] [address] [address] [address] Ivan Seo HDL NORMAL > or = 60 mg/dl - LO W CARDIOVASCULAR RISK <40 mg/dl - HIGH CARDIOVASCULAR RISK Normal [facility] Comment on above: Performed By: #### C MP, TSH, FT3, T4, LIPID #### [facility] [address] [address] [address] Ivan Seo LDL CALC NORMAL SEE BELOW Normal [facility] Comment on above: Result Comment: <100 mg/dl OPTIMAL 100 - 129 mg/dl NEAR OR ABOVE OPTIMAL 130 - 159 mg/dl BORDERLINE HIGH 160 - 189 mg/dl HIGH >190 mg/dl VERY HIGH Performed By: #### C MP, TSH, FT3, T4, LIPID #### [facility] [address] [address] [address] Ivan Seo Triglyceride [Mass/Vol] 91 mg/dL Normal <=150 [facility] Comment on above: Performed By: #### C MP, TSH, FT3, T4, LIPID #### [facility] [address] [address] [address] Ivan Seo VLDL CALC 18.2 mg/dL Normal [facility] Comment on above: Performed By: #### C MP, TSH, FT3, T4, LIPID #### [facility] [address] [address] [address] Ivan Seo OCC BLD IMMUNO SCREENon 12-0 OCCULT BLOOD Negative Normal NEGATIVE [facility] Comment on above: Performed By: #### H STROPN, TSH, BNP, BMP #### [facility] [address] [address] [address] Ivan Seo PROF 14(COMP METB)on 022 Albumin [Mass/Vol] 4.0 g/dL Normal 3.4-5.0 [facility] Comment on above: Performed By: #### C MP, TSH, FT3, T4, LIPID #### [facility] [address] [place] [address] Dr. Ivan Seo Albumin/Globulin [Mass ratio] 1.1 {ratio} Normal [facility] Comment on above: Performed By: #### C MP, TSH, FT3, T4, LIPID #### [facility] [address] [place] [address] Dr. Ivan Seo ALP [Catalytic activity/Vol] 110 U/L Normal 46-116 [facility] Comment on above: Performed By: #### C MP, TSH, FT3, T4, LIPID #### [facility] [address] [place] [address] Dr. Ivan Seo ALT [Catalytic activity/Vol] 122 U/L Critically high 16-63 [facility] Comment on above: Performed By: #### C MP, TSH, FT3, T4, LIPID #### [facility] [address] [place] [address] Dr. Ivan Seo Anion gap [Moles/Vol] 13.0 mmol/L Normal [facility] Comment on above: Performed By: #### C MP, TSH, FT3, T4, LIPID #### [facility] [address] [place] [address] Dr. Ivan Seo AST [Catalytic activity/Vol] 37 U/L Normal 15-37 [facility] Comment on above: Performed By: #### C MP, TSH, FT3, T4, LIPID #### [facility] [address] [place] [address] Dr. Ivan Seo Bilirubin [Mass/Vol] 0.6 mg/dL Normal 0.2-1.0 [facility] Comment on above: Performed By: #### C MP, TSH, FT3, T4, LIPID #### [facility] [address] [place] [address] Dr. Ivan Seo Calcium [Mass/Vol] 9.3 mg/dL Normal 8.5-10.1 [facility] Comment on above: Performed By: #### C MP, TSH, FT3, T4, LIPID #### [facility] [address] [place] [address] Dr. Ivan Seo Chloride [Moles/Vol] 102 mmol/L Normal 98-107 [facility] Comment on above: Performed By: #### C MP, TSH, FT3, T4, LIPID #### [facility] [address] [place] [address] Dr. Ivan Seo CO2 [Moles/Vol] 29.1 mmol/L Normal 21.0-32.0 [facility] Comment on above: Performed By: #### C MP, TSH, FT3, T4, LIPID #### [facility] [address] [place] [address] Dr. Ivan Seo Creatinine [Mass/Vol] 0.84 mg/dL Normal 0.70-1.30 [facility] Comment on above: Performed By: #### C MP, TSH, FT3, T4, LIPID #### [facility] [address] [place] [address] Dr. Ivan Seo EGFR-AF DJIBOUTIAN >60 Normal >=60 [facility] Comment on above: Performed By: #### C MP, TSH, FT3, T4, LIPID #### [facility] [address] [place] [address] Dr. Ivan Seo EGFR-NON AF DJIBOUTIAN >60 Normal >=60 [facility] Comment on above: Performed By: #### C MP, TSH, FT3, T4, LIPID #### [facility] [address] [place] [address] Dr. Ivan Seo Globulin (S) [Mass/Vol] 3.8 g/dL Normal [facility] Comment on above: Performed By: #### C MP, TSH, FT3, T4, LIPID #### [facility] [address] [place] [address] Dr. Ivan Seo Glucose [Mass/Vol] 106 mg/dL Normal 74-[address] [facility] Comment on above: Performed By: #### C MP, TSH, FT3, T4, LIPID #### [facility] [address] [place] [address] Dr. Ivan Seo Potassium [Moles/Vol] 4.1 mmol/L Normal 3.5-5.1 [facility] Comment on above: Performed By: #### C MP, TSH, FT3, T4, LIPID #### [facility] [address] [place] [address] Dr. Ivan Seo Protein [Mass/Vol] 7.8 g/dL Normal 6.4-8.[address] [facility] Comment on above: Performed By: #### C MP, TSH, FT3, T4, LIPID #### [facility] [address] [place] [address] Dr. Ivan Seo Sodium [Moles/Vol] 140 mmol/L Normal 136-[address] [facility] Comment on above: Performed By: #### C MP, TSH, FT3, T4, LIPID #### [facility] [address] [place] [address] Dr. Ivan Seo Urea nitrogen [Mass/Vol] 18.0 mg/dL Normal 7.0-18.0 [facility] Comment on above: Performed By: #### C MP, TSH, FT3, T4, LIPID #### [facility] [address] [place] [address] Dr. Ivan Seo Urea nitrogen/Creatinine [Mass ratio] 21.4 mg/mg Normal [facility] Comment on above: Performed By: #### C MP, TSH, FT3, T4, LIPID #### [facility] [address] [place] [address] Dr. Ivan Seo T4on 06-05-2022 T4 [Mass/Vol] 7.40 ug/dL Normal 4.50-12.10 [facility] Comment on above: Performed By: #### M G, BMP #### [facility] [address] [place], [place] [id number] Dr. Ivan Seo TSHon 06-05-2022 TSH 2.196 uIU/mL Normal 0.358-3.740 [facility] Comment on above: Performed By: #### C MP, TSH, FT3, T4, LIPID #### [facility] [address] [address] [address] Ivan Seo Vital Signs Date Time Vital Sign Value Performing Clinician Facility 05-14-2023 09:16-0500 Diastolic blood pressure 90 mm[Hg] Eduardo NILL [facility] 05-14-2023 09:16-0500 Heart rate 70 /min Eduardo NILL [facility] 05-14-2023 09:16-0500 Mean blood pressure 111 mm[Hg] Eduardo NILL [facility] 05-14-2023 09:16-0500 Respiratory rate 19 /min Eduardo NILL [facility] 05-14-2023 09:16-0500 SaO2% (BldA) [Mass fraction] 96 % Eduardo NILL [facility] 05-14-2023 09:16-0500 Systolic blood pressure 153 mm[Hg] Eduardo NILL [facility] 05-14-2023 09:10-0500 Diastolic blood pressure 95 mm[Hg] Eduardo NILL [facility] 05-14-2023 09:10-0500 Heart rate 71 /min Eduardo NILL [facility] 05-14-2023 09:10-0500 Mean blood pressure 110 mm[Hg] Eduardo NILL [facility] 05-14-2023 09:10-0500 Respiratory rate 16 /min Eduardo NILL [facility] 05-14-2023 09:10-0500 SaO2% (BldA) [Mass fraction] 97 % Eduardo NILL [facility] 05-14-2023 09:10-0500 Systolic blood pressure 141 mm[Hg] Eduardo NILL [facility] 05-14-2023 09:05-0500 Diastolic blood pressure 95 mm[Hg] Eduardo NILL [facility] 05-14-2023 09:05-0500 Heart rate 71 /min Eduardo NILL [facility] 05-14-2023 09:05-0500 Respiratory rate 18 /min Eduardo NILL [facility] 05-14-2023 09:05-0500 SaO2% (BldA) [Mass fraction] 97 % Eduardo NILL [facility] 05-14-2023 09:05-0500 Systolic blood pressure 141 mm[Hg] Eduardo NILL [facility] 05-14-2023 09:00-0500 Mean blood pressure 105 mm[Hg] Eduardo NILL [facility] 05-14-2023 08:55-0500 Body temperature 97.7 [degF] Eduardo NILL [facility] 05-14-2023 08:50-0500 Respiratory rate 23 /min Eduardo NILL [facility] 05-14-2023 08:45-0500 Respiratory rate 20 /min Eduardo NILL [facility] 05-14-2023 08:40-0500 Respiratory rate 21 /min Eduardo NILL [facility] 05-14-2023 07:03-0500 Blood Pressure Location Eduardo NILL [facility] 05-14-2023 07:03-0500 Body temperature 98.24 [degF] Eduardo NILL [facility] 04-14-2023 13:09-0400 Blood Pressure Location Eduardo NILL [facility] 04-14-2023 13:09-0400 Diastolic blood pressure 84 mm[Hg] Eduardo NILL [facility] 04-14-2023 13:09-0400 Heart rate 72 /min Eduardo NILL [facility] 04-14-2023 13:09-0400 Respiratory rate 16 /min Eduardo NILL [facility] 04-14-2023 13:09-0400 Systolic blood pressure 118 mm[Hg] Eduardo NILL [facility] 09-04-2022 08:24-0500 Blood Pressure Location Benton CARL [facility] 09-04-2022 08:24-0500 Diastolic blood pressure 70 mm[Hg] Benton CARL [facility] 09-04-2022 08:24-0500 Systolic blood pressure 124 mm[Hg] Benton CARL [facility] Encounters Encounter Date Encounter Type Care Provider Facility Start: 06-14-2023 ambulatory [facility] Start: 06-14-2023 End: 06-14-2023 ambulatory [facility] Start: 05-26-2023 End: 05-27-2023 ambulatory Eduardo REINOSO Facility:[facility] Start: 05-14-2023 End: 05-15-2023 ambulatory Eduardo REINOSO Facility:[facility] Start: 05-14-2023 End: 05-14-2023 Patient encounter procedure Eduardo REINOSO [facility] Start: 05-04-2023 End: 05-04-2023 ambulatory [facility] Start: 04-23-2023 End: 04-23-2023 ambulatory [facility] Start: 04-14-2023 End: 04-15-2023 ambulatory Josh Bach Facility:[facility] Start: 04-14-2023 End: 04-14-2023 Patient encounter procedure Eduardo REINOSO [facility] Start: 03-23-2023 End: 03-23-2023 ambulatory [facility] Start: 03-04-2023 ambulatory Eduardo REINOSO Facility:[facility] Start: 11-13-2022 End: 11-13-2022 ambulatory [facility] Start: 11-05-2022 End: 11-05-2022 ambulatory [facility] Start: 10-20-2022 End: 10-20-2022 ambulatory [facility] Start: 10-02-2022 End: 10-02-2022 ambulatory [facility] Start: 09-25-2022 ambulatory [facility] Start: 09-25-2022 End: 09-26-[address] JOSH BACH . Facility:[facility] Start: 09-14-2022 End: 09-14-2022 ambulatory JUST[facility] Start: 09-11-2022 End: 09-12-2022 Evaluation and management of inpatient DR JOSH BACH . Facility:[facility] Start: 09-04-2022 End: 09-04-[address] JOSH BACH . Facility:[facility] Start: 09-04-2022 End: 09-05-2022 ambulatory Benton CARL Facility:[facility] Start: 09-04-2022 End: 09-04-2022 Patient encounter procedure Benton CARL [facility] Start: 09-02-2022 End: 09-03-2022 ambulatory FLASH CALLES [facility] Start: 08-28-2022 End: 09-02-2022 Evaluation and management of inpatient EDDIE SCOTT [facility] Start: 08-28-2022 Emergency department patient visit SHIRA DIAZ [facility] Start: 08-28-2022 End: 08-28-2022 ambulatory ISA RINCON [facility] Start: 08-27-2022 End: 08-28-[address] JOSH BACH . Facility:[facility] Start: 08-18-2022 End: 08-20-[address] JOSH BACH . Facility:[facility] Start: 06-08-2022 Encounter for genera l adult medical examination without abnormal findings DR JOSH BACH . [facility] Start: 06-05-2022 End: 06-06-[address] JOSH BACH . Facility:[facility] Start: 06-05-2022 End: 06-06-2022 Encounter for general adult medical examination without abnormal findings DR JOSH BACH . Facility:[facility] Procedures Date Procedure Procedure Detail Performing Clinician Start: 05-14-2023 Colonoscopic polypectomy Eduardo REINOSO Start: 08-26-2022 Cardiac ablation usi ng fluoroscopy guidance Eduardo REINOSO Start: 06-05-[address] CONNOR BACH . Comment on above: Performed By: #### M G, BMP #### [facility] [address] [place] [address] Dr. Ivan Seo Cardiac ablation usi ng fluoroscopy guidance [facility] CARL Hernia repair [facility] Repair of right ingu inal hernia Eduardo REINOSO Plan of Treatment Date Care Activity Detail Author Start: 09-03-2023 ambulatory Ambulatory Facility[facility] Immunizations Immunization Date Immunization Notes Care Provider Fa cilisteven 03-25-2020 sipuleucel-T [facility] CAR[facility] 04-03-2019 influenza virus vaccine, live, attenuated, for intranasal use [facility] NEGATED: Highlighted row has not occurred!09-12-2021 SARS-CoV-2 (COVID-19) Ad26 vaccine, recombinant [facility] Payers Date Payer Category Payer Unknown [id number] 2.16.84 [id number] 1974 Unknown [id number] 2.16.84 [id number] 1974 Unknown [id number] 2.16.84 [id number] 1974 Unknown [id number] 2.16.84 [id number] 1974 Unknown [id number] 2.16.84 [id number] 1974 Unknown [id number] 2.16.84 [id number] 1974 Unknown [id number] 2.16.8 [id number] 1974 Unknown [id number] 2.16.8 [id number] 1974 Unknown [id number] 2.16.8 [id number] 1974 Unknown [id number] 2.16.8 [id number] 1974 Unknown [id number] 2.16.8 [id number] 1959 Unknown [id number] Social History Date Type Detail Facility Start: 09-04-2022 End: 04-14-2023 Tobacco smoking status Ex-smoker (finding) [facility] Comment on above: Quit 2008 Sex Assigned At Male [facility] Tobacco smoking status Never [facility] Comment on above: Quit 2008 Functional Status Date Assessment Result Facility 05-14-2023 Functional Status N/A [facility] 04-14-2023 Functional Status N/A [facility] 09-04-2022 Functional Status N/A [facility] Clinical Notes 08-28-2022 to 06-14-2023 Note Date & Type Note Facility 06-14-2023 Note Patient: Sujata shukla Procedure Information Date/Time: 06/14/23 0830 Procedure: Ablation atrial flutter - to be scheduled before due to insurance Location: [facility] ANALYST 1 / [facility] (Cath) Providers: Rishabh Burkett MD Clinical information reviewed: Allergies Meds Physical Exam Airway Mallampati: II TM distance: >3 FB Neck ROM: full Cardiovascular Dental Pulmonary Abdominal Anesthesia Plan ASA 2 CSE Anesthetic plan and risks discussed with patient. Use of blood products discussed with patient who. Additional Equipment Requests [facility] 05-17-2023 Note [id number] [facility] 05-14-2023 Hospital Discharge instructions Patient Education 05/14/2023 09:02:58 Diverticulosis MAGR (CUSTOM) Diverticulosis Many people have small pouches in their colon called diverticulum. The diverticulum bulge outward through weak spots in the colon. You could have one or more of these pouches in the colon. The condition of having these pouches in the colon is called diverticulosis or diverticular disease. Diverticulosis is usually diagnosed by tests to evaluate something else. For example, you may have had a colonoscopy to screen for colon cancer when the diverticulosis was found. Most people with diverticulosis do not have any discomfort or problems. If symptoms develop, they may include mild cramps, bloating, and constipation. A complication of this condition is called diverticulitis. This is when the diverticulum become inflamed and infected. How to treat diverticulosis: Increasing the amount of fiber in the diet may reduce symptoms of diverticulosis and prevent complications such as diverticulitis (infected diverticuli). Fiber keeps stool soft and lowers pressure inside the colon so that bowel contents can move through easily. You should eat 20 to 35 grams of fiber each day. The table below shows the amount of fiber in some foods that you can easily add to your diet. Adding fiber slowly may decrease the bloating and fullness sometimes felt with an immediate high fiber diet. The doctor may also recommend taking a fiber product such as Citrucel or Metamucil once a day. In the past people with diverticulosis were to avoid nuts, corn, and seeds. This has not been found to be true. If you find that certain foods create cramping or bloating, avoid that food. Foods high in fiber include: Fresh fruits, fresh vegetables, legumes (beans), whole wheat bread, bran muffins or cereal, and nuts. See the table below for examples of high fiber foods. Remember, your goal is 20-35 grams per day. Amount of fiber in different foods Food Serving Grams of fiber Fruits Apple (with skin) 1 medium apple 4.4 Banana 1 medium banana 3.1 Oranges 1 orange 3.1 Prunes 1 cup, pitted 12.4 Juices Apple, unsweetened, w/added ascorbic acid 1 cup 0.5 Grapefruit, white, canned, sweetened 1 cup 0.2 Grape, unsweetened, w/added ascorbic acid 1 cup 0.5 Greig 1 cup 0.7 Vegetables Cooked Green beans 1 cup 4.0 Carrots 1/2 cup sliced 2.3 Peas 1 cup 8.8 Potato (baked, with skin) 1 medium potato 3.8 Raw Wittmann (with peel) 1 cucumber 1.5 Lettuce 1 cup shredded 0.5 Tomato 1 medium tomato 1.5 Spinach 1 cup 0.7 Legumes Baked beans, canned, no salt added 1 cup 13.9 Kidney beans, canned 1 cup 13.6 Zaidi beans, canned 1 cup 11.6 Lentils, boiled 1 cup 15.6 Breads, pastas, flours Bran muffins 1 medium muffin 5.2 Oatmeal, cooked 1 cup 4.0 White bread 1 slice 0.6 Whole-wheat bread 1 slice 1.9 Pasta and rice, cooked Macaroni 1 cup 2.5 Rice, brown 1 cup 3.5 Rice, white 1 cup 0.6 Spaghetti (regular) 1 cup 2.5 Nuts Almonds 1/2 cup 8.7 Peanuts 1/2 cup 7.9 Chart from [facility] 2013. SEEK IMMEDIATE MEDICAL CARE IF: You develop abdominal (belly) pain. An oral temperature above _ 101 F__develops. Repeated vomiting occurs. Blood is being passed in stools (bright red or black tarry stools). You develop any bowel problems or changes which you have not had before. Extra Information: To learn how much fiber and other nutrients are in different foods, visit the [place] Department of Agriculture (USDA) National Nutrient Database at: http://www.Sinimanes.usda.gov/fnic/foodc omp/search/ Created using data from the USDA National Nutrient Database for Standard Reference. Available at http://www.Sinimanes.usda.gov/fnic/Filter Foundryc omp/search/. Information adapted from: [facility] Patient Information 2010 [employer]. [facility] 2012 [email or web address]/contents/d [email or web address]-tkdeqkr-xlhihs-the-bas ics Follow Up Care 04/14/2023 14:21:37 With:Eduardo REINOSO Address: [address] [place] [address] Business (1) When:7 to 10 days [facility] 05-14-2023 Note Patient: MARCO REYNA Age: 47 years Sex: Male : 1975 Associated Diagnoses: None Author: Eduardo REINOSO MD Subjective no changes to [facility] Comment on above: Result Comment: Elec tronically Signed By: Eduardo REINOSO MD\.br\Date and Time Signed: 05/14/23 07:43 EST 05-11-2023 Note Stop irebstartan, st art entresto for htn Has exercise intolerance on higher doses of toprol xl so reece leave at 50mg for now Patient would like to avoid adding more medicatiosn so will switch to entresto for BP since he was well controlled before stopping it If it becomes a cost burden he is aware we will need to revert back to an ARB and consider an additional medication [facility] 05-04-2023 Note VT Electrophysiology Consult Note [facility] Reason for visit: svt, nsvt, s/p loop, s/p avnrt ablation Date of Telehealth Visit: 05/04/2023 The patient was notified that using 3rd democrat telecommunication application (e.g., Purchext) is not HIPPA compliant and may carry some privacy risks. Yes The visit was conducted [id number]-prsm with the use of audio and video technology Julito. between patient and provider for a virtual visit. Verbal consent to provide and bill this service was obtained on 05/04/2023. No signature was obtained due to the COVID-19 pandemic. Patient Location: Patient Home I spent 12 minutes of total time on the day of the visit. This time was spent preparing for the visit, obtaining and reviewing any outside history/data, taking a history, performing an exam/evaluation, counseling and educating patient/family about the diagnosis and plan, performing medical decision making, referring to and communicating with other health care referrals, independently interpreting results and documenting in the EMR, and coordinating care. Please see the additional documentation in this note for specific details. LOOP reveals suggestion of atrial flutter / 2:1 AT as per strips on 03/26/23 @10:40am. He was unaware of this. His BP has been high and he feels better with Irbesartan. He feels tired with Lopressor 75mg bid. Otherwise has been doing well with no complaints of chest pain, shortness of breath, DESAI, LE edema. e did have some nocturnal bradycardia which could be related to his beta-kristen but patient states he does snore and wake up frequently which raises concern for undiagnosed sleep apnea STOP-BANG is 4 03/23/23 Patient had a repeat CTA on 03/16/23 which ruled out any more PE. . Like to stop his anticoagulation. LOOP eval has revealed no episodes of tachycardia. few episodes of VT that was noted T wave oversensing and noise. 10/20/22 HPI: Patient for follow-up s/p EP study. 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 Post ablation patient continued to have symptoms of palpitations, and an event monitor placed due to being admitted at [facility] for chest discomfort and acute PE. Event monitor revealed NSVT with symptoms of dizziness. He had reduced EF with AVNRT but now EF has improved. He was then taken to EP lab for V stim to induce an SVT for possible ablation. There is no inducible VT or tachycardia. There was presence of retrograde concealed accessory pathway in the left lateral location which was not pursued due to no tachycardia being induced. Catheter movement would induce a flutter as well as A-fib which self terminated on its own. Patient continues to experience palpitations although less frequently than before. But he has experience of palpitations with lightheadedness. I discussed with him because his symptoms are persisting we should continue to move forward with a loop monitor insertion to monitor palpitations for VT/SVTs --------- Previous 08/[address] burkett HPI: Sujata Reyna is a 47 y.o. year old with past medical history of hypertension and recent admission to an outside hospital due to palpitations. Nearly 3 weeks ago the patient had an episode of chest tightness and fluttering, this was associated with lightheadedness and presyncopal symptoms. He was admitted at an outside hospital, his EKG was showing left bundle branch block and he had an echocardiogram and stress test done as an outpatient, echo is showing an EF of 45 to 50% with abnormal septal motion. stress test was showing areas of moderate severity perfusion abnormalities in anterior wall. Patient continues to report increased dyspnea recently, no orthopnea, no paroxysmal nocturnal dyspnea. Patient underwent heart cath and was unremarkable. EP study was done by Dr Blas and a intermediate RP tachycardia was induced. No ventricular overdrive pacing was performed to differentiate between SVT. Radiofrequency ablation of slow pathway was performed and he was discharged. Ventricular stimulation for VT was not done. Since his discharge from [facility], he was admitted to [facility] for chest pain. He was found to have an acute PE and was started on Eliquis. BLE doppler showed small nonocclusive right femoral vein thrombus. He also noted that he had also traveled down to [place] via car the few days prior to episode. Since his admission at [facility] last week, he has been feeling better. Chest pain is intermittent but improved. He denies dyspnea,He had an event monitor placed and this revealed NSVT again with symptoms of dizziness. ( Strips attached) PMH- HTN PSH- no pertinent cardiac procedures/surgery FMH- Father passed 48 yo aneurysm- (back of neck), HTN; Social- Former smoker 17 yrs- 1 PPD, rufus (more content not included)... [facility] 04-23-2023 Note VT Electrophysiology Consult Note [facility] Reason for visit: svt, nsvt, s/p loop, s/p avnrt ablation 04/23/23: for follow-up with echo and loop data review loop continues to show episodes of SVT although patient is asymptomatic and did not realize otherwise has been doing well with no complaints of chest pain, shortness of breath, DESAI, LE edema. He did have some nocturnal bradycardia which could be related to his beta-kristen but patient states he does snore and wake up frequently which raises concern for undiagnosed sleep apnea STOP-BANG is 4 03/23/23 Patient had a repeat CTA on 03/16/23 which ruled out any more PE. . Like to stop his anticoagulation. LOOP eval has revealed no episodes of tachycardia. few episodes of VT that was noted T wave oversensing and noise. 10/20/22 HPI: Patient for follow-up s/p EP study/01/17. 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 Post ablation patient continued to have symptoms of palpitations, and an event monitor placed due to being admitted at [facility] for chest discomfort and acute PE. Event monitor revealed NSVT with symptoms of dizziness. He had reduced EF with AVNRT but now EF has improved. He was then taken to EP lab for V stim to induce an SVT for possible ablation. There is no inducible VT or tachycardia. There was presence of retrograde concealed accessory pathway in the left lateral location which was not pursued due to no tachycardia being induced. Catheter movement would induce a flutter as well as A-fib which self terminated on its own. Patient continues to experience palpitations although less frequently than before. But he has experience of palpitations with lightheadedness. I discussed with him because his symptoms are persisting we should continue to move forward with a loop monitor insertion to monitor palpitations for VT/SVTs --------- Previous 08/[address] burkett HPI: Sujata Reyna is a 47 y.o. year old with past medical history of hypertension and recent admission to an outside hospital due to palpitations. Nearly 3 weeks ago the patient had an episode of chest tightness and fluttering, this was associated with lightheadedness and presyncopal symptoms. He was admitted at an outside hospital, his EKG was showing left bundle branch block and he had an echocardiogram and stress test done as an outpatient, echo is showing an EF of 45 to 50% with abnormal septal motion. stress test was showing areas of moderate severity perfusion abnormalities in anterior wall. Patient continues to report increased dyspnea recently, no orthopnea, no paroxysmal nocturnal dyspnea. Patient underwent heart cath and was unremarkable. EP study was done by Dr Blas and a intermediate RP tachycardia was induced. No ventricular overdrive pacing was performed to differentiate between SVT. Radiofrequency ablation of slow pathway was performed and he was discharged. Ventricular stimulation for VT was not done. Since his discharge from [facility], he was admitted to [facility] for chest pain. He was found to have an acute PE and was started on Eliquis. BLE doppler showed small nonocclusive right femoral vein thrombus. He also noted that he had also traveled down to [place] via car the few days prior to episode. Since his admission at [facility] last week, he has been feeling better. Chest pain is intermittent but improved. He denies dyspnea,He had an event monitor placed and this revealed NSVT again with symptoms of dizziness. ( Strips attached) PMH- HTN PSH- no pertinent cardiac procedures/surgery FMH- Father passed 48 yo aneurysm- (back of neck), HTN; Social- Former smoker 17 yrs- 1 PPD, quit in 2008, Social- beer here and there; denied illicit drug use Review of Systems Constitutional: Negative for chills, decreased appetite, fever, malaise/fatigue and weight gain. Cardiovascular: Positive for palpitations/lightheadedness. Negative for claudication, dyspnea on exertion, irregular heartbeat, leg swelling, near-syncope, orthopnea, palpitations, paroxysmal nocturnal dyspnea and syncope. Respiratory: Negative for cough, shortness of breath and wheezing. PMH: Past Medical History: Diagnosis Date Abnormal ECG Arrhythmia AVNRT (AV erica re-entry tachycardia) CHF (congestive heart failure) (CMS/HCC) Hypertension PSH: Past Surgical History: Procedure Laterality Date ABLATION OF DYSRHYTHMIC FOCUS CARDIAC CATHETERIZATION HERNIA REPAIR SH: Social Determinants of Health Tobacco Use: Medium Risk (04/23/2023) Patient History Smoking Tobacco Use: Former Smokeless Tobacco Use: Never Passive Exposure: Past Alcohol Use: Not on file Financial Resource Strain: Low Risk (08/28/2022) Overall Financial Resource Strain (CARDIA) Difficulty o (more content not included)... [facility] 04-23-2023 Note Patient here to disc uss medications. Had echo last week. He has concerns with metoprolol and energy level. Denies chest pain and palpitations. Review of Systems Constitutional: Positive for malaise/fatigue. Cardiovascular: Positive for dyspnea on exertion. Neurological: Positive for light-headedness ( when crouched down ). All other systems reviewed and are negative. [facility] 04-14-2023 Note Chief Complaint consultation for colonoscopy and several skin lumps HPI Staff 47 year old male presents on consultation from Dr. Bach for screening colonoscopy and several skin masses. Denies abdominal or rectal pain. No rectal bleeding or change in bowel habits. Denies nausea or vomiting. No unexplained weight loss. Never had colonoscopy in the past. No known family history of colon cancer. Reports skin mass to left shoulder, right upper posterior thigh and right leg. All have been present for many years. Intermittent discomfort to thigh mass after prolonged sitting. No imaging completed. History of Present Illness 47 yo male with h/o htn, atrial fibrillation, s/p ablation; h/o DVT/PE, recently off anticoagulation, cardiomyopathy, referred for colorectal screening, and enlarging subcutaneous mass left posterior shoulder and painful lesion posterior right upper thigh; present for many years; shoulder mass gradually enlarging, not painful; posterior thigh lesion painful with sitting/compression, no drainage; on baby asa daily, no NSAIDs; no tobacco use. Review of Systems PHQ Score Initial Depression Screen Score: 0 ROS - Provider Constitutional: no fever, no sweats, no weight loss. Eyes: no glasses, no blurred vision, no visual loss. ENMT: no dentures, no hoarseness, no swallowing difficulties, no hearing loss, no ear infection(s), no nose bleeds. Cardiovascular: normal blood pressure, no chest pain, regular heartbeat, no heart murmur. Respiratory: no shortness of breath, no cough, no asthma, no wheezing. Gastrointestinal: no nausea, no vomiting, no diarrhea, no constipation, no blood in stool, no change in bowel habits, no abdominal pain, no hepatitis. Genitourinary: no kidney stones, no urine infection, no dysuria. Musculoskeletal: no pain, no weakness. Skin: no changing moles, no rash, yes skin lumps. Neurologic: no seizures, no epilepsy, no headache. Psychiatric: no emotional or psychiatric problem. Heme/Lymph: no bleeding problems, no anemia, no blood clots, no transfusions. Allergy/Immunologic: no swollen lymph nodes/glands, no IV drug abuse. Other: Additional ROS info: Except as noted in the above Review of Systems and in the History of Present Illness, all other systems have been reviewed and are negative or noncontributory. Physical Exam Vitals & Measurements HR: 72(Peripheral) RR: 16 BP: 118/84 HT: 69 in HT: 175 cm WT: 103.9 kg WT: 228.58 lb BMI: 33.93 HEENT: normal conjunctiva, sclera clear, no scleral icterus, EOM intact, PERRLA, oral mucosa moist without lesions. Neck: trachea midline, no mass, symmetric, no thyromegaly or nodules, no adenopathy Respiratory: lungs CTA, respirations non labored. Cardiovascular: regular rate and rhythm, no murmur, no pedal edema or varicosities. Gastrointestinal: soft, non distended, no tenderness, no masses, no palpable hernias, diastasis recti no, no hepatosplenomegaly; normal bs Lymphatic: no cervical adenopathy, no supraclavicular adenopathy. Musculoskeletal: normal gait, digits and nails without infection, nodes, cyanosis, clubbing. Skin: no rashes, no lesions, no ulcers, left posterior shoulder with 4 cm subcutaneous mass, soft, no skin changes; right upper posterior thigh with 2 x .5 cm raised firm scar, no ulceratio or bleeding, tender Psychiatric/Neuro: oriented to time, place, person, judgement normal, affect appropriate for age, insight intact, no focal deficits. Tests: review of old records completed , Discussed surgical options, risks, and possible complications with patient. Assessment/Plan 1. Screening for malignant neoplasm of colon (Z12.11: Encounter for screening for malignant neoplasm of colon) plan colonoscopy under anesthesia, informed consent obtained. plan excisional biopsy of lipoma and thigh lesion while under anesthesia, informed consent obtained. 2. Lipoma of left shoulder (D17.22: Benign lipomatous neoplasm of skin and subcutaneous tissue of left arm) see # 1 3. Neoplasm of uncertain behavior of skin of thigh (D48.5: Neoplasm of uncertain behavior of skin) see # 1 Follow-up No qualifying data available Problem List/Past Medical History Ongoing Anxiety Atrial fibrillation BMI 33.0-33.9,adult BPH with urinary obstruction Cardiomyopathy Chronic congestive heart failure Former smoker Glycosuria History of pulmonary embolism Hypertension Impotence LBBB (left bundle branch block) Lipoma of left shoulder Neoplasm of uncertain behavior of skin of thigh Obesity Prostatitis Screening for malignant neoplasm of colon Historical No qualifying data Procedure/Surgical History Fluoroscopic guidance for cardiac ablation (08/2022), Repair of right inguinal hernia. Medications aspirin 81 mg Oral EC Tab, 81 mg= 1 tab(s), Oral, Daily atorvastatin 40 mg Tab, 40 mg= 1 tab(s), Oral, Daily Cialis 10 mg Tab, 10 mg= 1 tab(s), Oral, As Directed, PRN, 2 refills dapagliflozin, 10 mg, Oral, Daily Entresto 24 mg-26 (more content not included)... [facility] Comment on above: Result Comment: Elec tronically Signed By: KEMAR MOLINA, Eduardo Galloway\Date and Time Signed: 04/14/23 17:00 EDT 03-23-2023 Note VT Electrophysiology Consult Note [facility] Reason for visit: wound check s/p loop implant 03/23/23 Patient had a repeat CTA on 03/16/23 which ruled out any more PE. . Like to stop his anticoagulation. LOOP eval has revealed no episodes of tachycardia. few episodes of VT that was noted T wave oversensing and noise. 10/20/22 HPI: Patient for follow-up s/p EP study/01/17. 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 Post ablation patient continued to have symptoms of palpitations, and an event monitor placed due to being admitted at [facility] for chest discomfort and acute PE. Event monitor revealed NSVT with symptoms of dizziness. He had reduced EF with AVNRT but now EF has improved. He was then taken to EP lab for V stim to induce an SVT for possible ablation. There is no inducible VT or tachycardia. There was presence of retrograde concealed accessory pathway in the left lateral location which was not pursued due to no tachycardia being induced. Catheter movement would induce a flutter as well as A-fib which self terminated on its own. Patient continues to experience palpitations although less frequently than before. But he has experience of palpitations with lightheadedness. I discussed with him because his symptoms are persisting we should continue to move forward with a loop monitor insertion to monitor palpitations for VT/SVTs --------- Previous 08/[address] burkett HPI: Sujata Reyna is a 47 y.o. year old with past medical history of hypertension and recent admission to an outside hospital due to palpitations. Nearly 3 weeks ago the patient had an episode of chest tightness and fluttering, this was associated with lightheadedness and presyncopal symptoms. He was admitted at an outside hospital, his EKG was showing left bundle branch block and he had an echocardiogram and stress test done as an outpatient, echo is showing an EF of 45 to 50% with abnormal septal motion. stress test was showing areas of moderate severity perfusion abnormalities in anterior wall. Patient continues to report increased dyspnea recently, no orthopnea, no paroxysmal nocturnal dyspnea. Patient underwent heart cath and was unremarkable. EP study was done by Dr Blas and a intermediate RP tachycardia was induced. No ventricular overdrive pacing was performed to differentiate between SVT. Radiofrequency ablation of slow pathway was performed and he was discharged. Ventricular stimulation for VT was not done. Since his discharge from [facility], he was admitted to [facility] for chest pain. He was found to have an acute PE and was started on Eliquis. BLE doppler showed small nonocclusive right femoral vein thrombus. He also noted that he had also traveled down to [place] via car the few days prior to episode. Since his admission at [facility] last week, he has been feeling better. Chest pain is intermittent but improved. He denies dyspnea,He had an event monitor placed and this revealed NSVT again with symptoms of dizziness. ( Strips attached) PMH- HTN PSH- no pertinent cardiac procedures/surgery FMH- Father passed 48 yo aneurysm- (back of neck), HTN; Social- Former smoker 17 yrs- 1 PPD, quit in 2008, Social- beer here and there; denied illicit drug use Review of Systems Constitutional: Negative for chills, decreased appetite, fever, malaise/fatigue and weight gain. Cardiovascular: Positive for palpitations/lightheadedness. Negative for claudication, dyspnea on exertion, irregular heartbeat, leg swelling, near-syncope, orthopnea, palpitations, paroxysmal nocturnal dyspnea and syncope. Respiratory: Negative for cough, shortness of breath and wheezing. PMH: Past Medical History: Diagnosis Date Hypertension PSH: Past Surgical History: Procedure Laterality Date HERNIA REPAIR SH: Social Determinants of Health Tobacco Use: Medium Risk (10/20/2022) Patient History Smoking Tobacco Use: Former Smokeless Tobacco Use: Never Passive Exposure: Past Alcohol Use: Not on file Financial Resource Strain: Low Risk (08/28/2022) Overall Financial Resource Strain (CARDIA) Difficulty of Paying Living Expenses: Not hard at all Food Insecurity: Unknown (08/28/2022) Hunger Vital Sign Worried About Running Out of Food in the Last Year: Never true Ran Out of Food in the Last Year: Not on file Transportation Needs: Unknown (08/28/2022) PRAPARE - Transportation Lack of Transportation (Medical): No Lack of Transportation (Non-Medical): Not on file Physical Activity: Not on file Stress: Not on file Social Connections: Not on file Intimate Partner Violence: Unknown (08/28/2022) Humiliation, Afraid, Rape, and Kick questionnaire Fear of Current or Ex-Partner: No Emotionally Abused: Not on file Physically Abus (more content not included)... [facility] 11-13-2022 Note VT Electrophysiology Consult Note [facility] Reason for visit: wound check s/p loop implant HPI: Patient here for wound check of loop implant wound looks good is healing well, no concerns for erythema, hematoma, tenderness, drainage. patient denies aches chills fever. States he has not really had any episodes of lightheadedness may be a mild 1 but nothing significant. 10/20/22 HPI: Patient for follow-up s/p EP study. 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 Post ablation patient continued to have symptoms of palpitations, and an event monitor placed due to being admitted at [facility] for chest discomfort and acute PE. Event monitor revealed NSVT with symptoms of dizziness. He had reduced EF with AVNRT but now EF has improved. He was then taken to EP lab for V stim to induce an SVT for possible ablation. There is no inducible VT or tachycardia. There was presence of retrograde concealed accessory pathway in the left lateral location which was not pursued due to no tachycardia being induced. Catheter movement would induce a flutter as well as A-fib which self terminated on its own. Patient continues to experience palpitations although less frequently than before. But he has experience of palpitations with lightheadedness. I discussed with him because his symptoms are persisting we should continue to move forward with a loop monitor insertion to monitor palpitations for VT/SVTs --------- Previous 08/[address] burkett HPI: Sujata Reyna is a 47 y.o. year old with past medical history of hypertension and recent admission to an outside hospital due to palpitations. Nearly 3 weeks ago the patient had an episode of chest tightness and fluttering, this was associated with lightheadedness and presyncopal symptoms. He was admitted at an outside hospital, his EKG was showing left bundle branch block and he had an echocardiogram and stress test done as an outpatient, echo is showing an EF of 45 to 50% with abnormal septal motion. stress test was showing areas of moderate severity perfusion abnormalities in anterior wall. Patient continues to report increased dyspnea recently, no orthopnea, no paroxysmal nocturnal dyspnea. Patient underwent heart cath and was unremarkable. EP study was done by Dr Blas and a intermediate RP tachycardia was induced. No ventricular overdrive pacing was performed to differentiate between SVT. Radiofrequency ablation of slow pathway was performed and he was discharged. Ventricular stimulation for VT was not done. Since his discharge from [facility], he was admitted to [facility] for chest pain. He was found to have an acute PE and was started on Eliquis. BLE doppler showed small nonocclusive right femoral vein thrombus. He also noted that he had also traveled down to [place] via car the few days prior to episode. Since his admission at [facility] last week, he has been feeling better. Chest pain is intermittent but improved. He denies dyspnea,He had an event monitor placed and this revealed NSVT again with symptoms of dizziness. ( Strips attached) PMH- HTN PSH- no pertinent cardiac procedures/surgery FMH- Father passed 48 yo aneurysm- (back of neck), HTN; Social- Former smoker 17 yrs- 1 PPD, quit in 2008, Social- beer here and there; denied illicit drug use Review of Systems Constitutional: Negative for chills, decreased appetite, fever, malaise/fatigue and weight gain. Cardiovascular: Positive for palpitations/lightheadedness. Negative for claudication, dyspnea on exertion, irregular heartbeat, leg swelling, near-syncope, orthopnea, palpitations, paroxysmal nocturnal dyspnea and syncope. Respiratory: Negative for cough, shortness of breath and wheezing. PMH: Past Medical History: Diagnosis Date Hypertension PSH: Past Surgical History: Procedure Laterality Date HERNIA REPAIR SH: Social Determinants of Health Tobacco Use: Medium Risk Smoking Tobacco Use: Former Smokeless Tobacco Use: Never Passive Exposure: Past Alcohol Use: Not on file Financial Resource Strain: Low Risk Difficulty of Paying Living Expenses: Not hard at all Food Insecurity: Unknown Worried About Running Out of Food in the Last Year: Never true Ran Out of Food in the Last Year: Not on file Transportation Needs: Unknown Lack of Transportation (Medical): No Lack of Transportation (Non-Medical): Not on file Physical Activity: Not on file Stress: Not on file Social Connections: Not on file Intimate Partner Violence: Unknown Fear of Current or Ex-Partner: No Emotionally Abused: Not on file Physically Abused: Not on file Sexually Abused: Not on file Depression: Not on file Housing Stability: Unknown Unable to Pay for Housing in the Last Year: Not on file N (more content not included)... [facility] 11-05-2022 Note LOOP IMPLANT PROCEDU RE NOTE DATE OF PROCEDURE: 11/05/2022 PERFORMING PHYSICIAN: Dr. Rishabh Burkett SUPERVISOR ACOUSTICAL TILE CARPENTERS: EARL INDICATIONS FOR PROCEDURE: 1. SVT/AF surveillance CONSENT: Patient LOCATION: EP lab PROCEDURAL SEDATION: None FLUOROSCOPY TIME: 0min PREPARATION: Preoperative antibiotics was administered. EBL:3cc SPECIMEN REMOVED: None PROCEDURES PERFORMED: 1. LOOP implant PROCEDURE NOTE: Patient was brought to the EP lab in the post absorptive state. A procedural pause was performed verifying the patient, the procedure. Sterile prep and drape were performed over the left precordium and anesthesia with 1% lidocaine was followed by a small incision was made in the 3rd intercostal space near the sternum on the left using the [employer] PTY tool. The loop recorder was then injected subcutaneously and noted to have good sensing parameters. Technical details of the device as noted below. The skin was then closed with 3-0 absorbable monofilament suture and glue applied to hold the edges together. Tegaderm was applied to cover the wound. The patient appeared to tolerate the procedure well and was returned to the room in stable condition. No complications were immediately observed. Sensin.18mV. IMPRESSION: Successful placement of LOOP implant with excellent sensing parameters. COMPLICATIONS: None RECOMMENDATIONS: 1. Occlusive dressing to be changed after 7 days. 2. Do not wet the incision. Rishabh Burkett MD Cardiac Electrophysiology. [facility] 10-20-2022 Note Sujata is here today to follow up on his 30-day event monitor post-ablation. He states he has not felt the dizziness, except once on 10/06, since the last procedure (10/02/22-[facility]). Otherwise, Sujata states he has felt really good. Review of Systems Constitutional: Positive for malaise/fatigue (still gets worn out easily). Negative for chills, decreased appetite, fever and weight gain. HENT: Negative for nosebleeds. Cardiovascular: Positive for dyspnea on exertion. Negative for chest pain, irregular heartbeat, leg swelling, near-syncope, palpitations and syncope. Respiratory: Positive for cough (occasional). Negative for shortness of breath and wheezing. Neurological: Positive for headaches (slight headaches occasionally). Negative for dizziness and light-headedness. [facility] 10-20-2022 Note VT Electrophysiology Consult Note [facility] Reason for visit: NSVT s/p EP study without ablation HPI: Patient for follow-up s/p EP study/01/17. 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 Post ablation patient continued to have symptoms of palpitations, and an event monitor placed due to being admitted at [facility] for chest discomfort and acute PE. Event monitor revealed NSVT with symptoms of dizziness. He had reduced EF with AVNRT but now EF has improved. He was then taken to EP lab for V stim to induce an SVT for possible ablation. There is no inducible VT or tachycardia. There was presence of retrograde concealed accessory pathway in the left lateral location which was not pursued due to no tachycardia being induced. Catheter movement would induce a flutter as well as A-fib which self terminated on its own. Patient continues to experience palpitations although less frequently than before. But he has experience of palpitations with lightheadedness. I discussed with him because his symptoms are persisting we should continue to move forward with a loop monitor insertion to monitor palpitations for VT/SVTs --------- Previous 08/[address] burkett HPI: Sujata Reyna is a 47 y.o. year old with past medical history of hypertension and recent admission to an outside hospital due to palpitations. Nearly 3 weeks ago the patient had an episode of chest tightness and fluttering, this was associated with lightheadedness and presyncopal symptoms. He was admitted at an outside hospital, his EKG was showing left bundle branch block and he had an echocardiogram and stress test done as an outpatient, echo is showing an EF of 45 to 50% with abnormal septal motion. stress test was showing areas of moderate severity perfusion abnormalities in anterior wall. Patient continues to report increased dyspnea recently, no orthopnea, no paroxysmal nocturnal dyspnea. Patient underwent heart cath and was unremarkable. EP study was done by Dr Blas and a intermediate RP tachycardia was induced. No ventricular overdrive pacing was performed to differentiate between SVT. Radiofrequency ablation of slow pathway was performed and he was discharged. Ventricular stimulation for VT was not done. Since his discharge from [facility], he was admitted to [facility] for chest pain. He was found to have an acute PE and was started on Eliquis. BLE doppler showed small nonocclusive right femoral vein thrombus. He also noted that he had also traveled down to [place] via car the few days prior to episode. Since his admission at [facility] last week, he has been feeling better. Chest pain is intermittent but improved. He denies dyspnea,He had an event monitor placed and this revealed NSVT again with symptoms of dizziness. ( Strips attached) PMH- HTN PSH- no pertinent cardiac procedures/surgery FMH- Father passed 48 yo aneurysm- (back of neck), HTN; Social- Former smoker 17 yrs- 1 PPD, quit in 2008, Social- beer here and there; denied illicit drug use Review of Systems Constitutional: Negative for chills, decreased appetite, fever, malaise/fatigue and weight gain. Cardiovascular: Positive for palpitations/lightheadedness. Negative for claudication, dyspnea on exertion, irregular heartbeat, leg swelling, near-syncope, orthopnea, palpitations, paroxysmal nocturnal dyspnea and syncope. Respiratory: Negative for cough, shortness of breath and wheezing. PMH: Past Medical History: Diagnosis Date Hypertension PSH: Past Surgical History: Procedure Laterality Date HERNIA REPAIR SH: Social Determinants of Health Tobacco Use: Medium Risk Smoking Tobacco Use: Former Smokeless Tobacco Use: Never Passive Exposure: Past Alcohol Use: Not on file Financial Resource Strain: Low Risk Difficulty of Paying Living Expenses: Not hard at all Food Insecurity: Unknown Worried About Running Out of Food in the Last Year: Never true Ran Out of Food in the Last Year: Not on file Transportation Needs: Unknown Lack of Transportation (Medical): No Lack of Transportation (Non-Medical): Not on file Physical Activity: Not on file Stress: Not on file Social Connections: Not on file Intimate Partner Violence: Unknown Fear of Current or Ex-Partner: No Emotionally Abused: Not on file Physically Abused: Not on file Sexually Abused: Not on file Depression: Not on file Housing Stability: Unknown Unable to Pay for Housing in the Last Year: Not on file Number of Places Lived in the Last Year: Not on file Unstable Housing in the Last Year: No Allergies: No Known Allergies Weight: 104kg Visit Vitals BP 152/70 (BP Location: Left arm, Patient Position: Sitting) Pulse 87 Ht 1.753 m (5' 9 ) Wt 104 kg (230 lb) SpO2 95% BMI 33.97 kg/m??? Smoking Status Former BSA 2.25 m??? Meds: (more content not included)... [facility] 10-02-2022 Note COMPREHENSIVE EP LUIS DY PROCEDURE NOTE DATE OF PROCEDURE: 10/02/2022 PERFORMING PHYSICIAN: Dr. Rishabh Burkett SUPERVISOR ACOUSTICAL TILE CARPENTERS: Dr Bobby Boyce INDICATIONS FOR PROCEDURE: 1. History of NSVT. 2. Dizziness 3. H/o of recent EP study and AVNRT ablation. CONSENT: Patient LOCATION: EP Lab PROCEDURAL SEDATION: Versed and Fentanyl. Monitoring: Cardiac telemetry, Blood pressure, continuous pulse oxymetry. Moderate sedation was administered by the sedation nurse under my supervision. Intraprocedural face to face sedation time: 68min. FLUROSCOPY: 2min/ 30mGray PREPARATION: Preoperative antibiotics was administered. PROCEDURES PERFORMED: 1. Ultrasound guided vascular access for 5Fx2, 8Fx 1 venous sheaths as documented below in procedure note and image stored in PACS. 2. Comprehensive EP study which includes right atrial recording and pacing, His bundle recording and right ventricular recording and pacing. INDICATION: Sujata Reyna is a 47 y.o. year old with past medical history of hypertension had an episode of chest tightness and fluttering, this was associated with lightheadedness and presyncopal symptoms. He was admitted at an outside hospital, his EKG was showing left bundle branch block and he had an echocardiogram and stress test done as an outpatient, echo is showing an EF of 45 to 50% with abnormal septal motion. stress test was showing areas of moderate severity perfusion abnormalities in anterior wall. Patient underwent heart cath and was unremarkable. EP study was done by Dr Blas and a intermediate RP tachycardia was induced. No ventricular overdrive pacing was performed to differentiate between SVT. Radiofrequency ablation of slow pathway was performed and he was discharged. Ventricular stimulation for VT was not done. Since his discharge from [facility], he was admitted to [facility] for chest pain. He was found to have an acute PE and was started on Eliquis. BLE doppler showed small nonocclusive right femoral vein thrombus. He also noted that he had also traveled down to [place] via car the few days prior to episode. Since his admission at [facility] last week, he has been feeling better. Chest pain is intermittent but improved. He denies dyspnea,He had an event monitor placed and this revealed NSVT again with symptoms of dizziness. His EF has normalized since then. He was brought for V- Stim. PROCEDURE NOTE: The risks, benefits and alternatives of the procedure were discussed with the patient and family who agreed to proceed. Please refer to my office consult note for details of the discussion and of indications. Patient was brought to the EP lab in the post absorptive state. A procedural pause was performed verifying the patient, the procedure. The right groin was prepped and draped in the usual sterile fashion. Preoperative antibiotics was administered. Ultrasound was used to image the right femoral veins and it was noted to be patent and this was used for vessel entry as noted below. After infiltration with 1% lidocaine, 3 venous sheath was placed in the right. Details of cathetersplaced as follows. RFV: 5Fx1 CRD2 His and then RV EP Cath: Dwayne Pope/Chi, 8F: CS: EZ steer catheter Once catheter was in position, baseline intervals were noted as below. Baseline right ventricular programmed stimulation showed evidence of VA conduction. I performed VEST using 600ms and 400ms drive train. Singles, doubles and triple extra stimuli was introduced with no evidence of any ventricular tachycardia from RV apex as well as RVOT. Atrial pacing was performed from HRA and proximal CS. When ventricular pacing was performed, there was a concern about retrograde accesory pathway. When adenosine was given along with V-pacing, there was definite change in retrograde activation with earliest activation in the distal CS. Interestingly, when AEST was performed, there was repeated demonstration of atrial echo which was not seen when paced from the HRA. Catheter movement would induce atrial flutter as well as atrial fibrillation which would self terminate.AEST and burst pacing was done and no tachycardia could be induced. Since no tachycardia was induced, I decided not to map the accessory pathway. The patient appeared to tolerate the procedure well and was returned to his room in stable condition. No complications were immediately observed. AHms 75 HVms 77 VERPms 600/250, VA condunction+, VA block 320ms AV Wenkebach ms 480 AH jump ms No documented AH jump but AVNERP ms 600/430 AERP ms 600/290 EBL: 15cc SPECIMEN REMOVED: None IMPRESSION: 1. EP study with and no inducible VT 2. No inducible tachycardia 3. Presence of retrograde concealed accessory pathway in the left lateral location. 4. LOOP if patient has continued symptoms. RECOMMENDATIONS: 1 Follow up with EP as needed. Rishabh Burkett MD Cardiac Electrophysiology [facility] 10-02-2022 Note Patient: Sujata shukla Procedure Information Date/Time: 10/02/22 1430 Procedure: EP Study possible ablation - may require anesthesia- to be determined by Dr Burkett Location: [facility] ANALYTICAL LAB ANALYST 1 EP / [facility] (Cath) Providers: Rishabh Burkett MD Clinical information reviewed: Allergies Meds Physical Exam Airway Mallampati: II TM distance: >3 FB Neck ROM: full Cardiovascular Rhythm: regular (-) murmur, peripheral edema, JVD Dental - normal exam Pulmonary Breath sounds clear to auscultation Abdominal Abdomen: soft Bowel sounds: normal Anesthesia Plan ASA 2 (Moderate sedation _ Local anesthesia) Anesthetic plan and risks discussed with patient. Use of blood products discussed with patient who. Plan discussed with attending. Additional Equipment Requests- none Bobby Boyce M.D, Online Activist, PGY- [facility]. [facility] 09-25-2022 Note VT Electrophysiology Consult Note Date of Telehealth Visit: 09/25/22 The patient was notified that using 3rd democrat telecommunication application (e.g., [employer]) is not HIPPA compliant and may carry some privacy risks. Yes The visit was conducted [id number] with the use of audio and video technology [email or web address] between patient and provider for a virtual visit. Verbal consent to provide and bill this service was obtained on 09/25/22 . No signature was obtained due to the COVID-19 pandemic. Patient Location: Patient Home I spent 22 minutes of total time on the day of the visit. This time was spent preparing for the visit, obtaining and reviewing any outside history/data, taking a history, performing an exam/evaluation, counseling and educating patient/family about the diagnosis and plan, performing medical decision making, referring to and communicating with other health care referrals, independently interpreting results and documenting in the EMR, and coordinating care. Please see the additional documentation in this note for specific details. Reason for visit: NSVT HPI: Sujata Reyna is a 47 y.o. year old with past medical history of hypertension and recent admission to an outside hospital due to palpitations. Nearly 3 weeks ago the patient had an episode of chest tightness and fluttering, this was associated with lightheadedness and presyncopal symptoms. He was admitted at an outside hospital, his EKG was showing left bundle branch block and he had an echocardiogram and stress test done as an outpatient, echo is showing an EF of 45 to 50% with abnormal septal motion. stress test was showing areas of moderate severity perfusion abnormalities in anterior wall. Patient continues to report increased dyspnea recently, no orthopnea, no paroxysmal nocturnal dyspnea. Patient underwent heart cath and was unremarkable. EP study was done by Dr Blas and a intermediate RP tachycardia was induced. No ventricular overdrive pacing was performed to differentiate between SVT. Radiofrequency ablation of slow pathway was performed and he was discharged. Ventricular stimulation for VT was not done. Since his discharge from [facility], he was admitted to [facility] for chest pain. He was found to have an acute PE and was started on Eliquis. BLE doppler showed small nonocclusive right femoral vein thrombus. He also noted that he had also traveled down to [place] via car the few days prior to episode. Since his admission at [facility] last week, he has been feeling better. Chest pain is intermittent but improved. He denies dyspnea,He had an event monitor placed and this revealed NSVT again with symptoms of dizziness. ( Strips attached) PMH- HTN PSH- no pertinent cardiac procedures/surgery FMH- Father passed 48 yo aneurysm- (back of neck), HTN; Social- Former smoker 17 yrs- 1 PPD, quit in 2008, Social- beer here and there; denied illicit drug use Review of Systems Constitutional: Negative for chills, decreased appetite, fever, malaise/fatigue and weight gain. Cardiovascular: Positive for chest pain. Negative for claudication, dyspnea on exertion, irregular heartbeat, leg swelling, near-syncope, orthopnea, palpitations, paroxysmal nocturnal dyspnea and syncope. Respiratory: Negative for cough, shortness of breath and wheezing. PMH: Past Medical History: Diagnosis Date Hypertension PSH: Past Surgical History: Procedure Laterality Date HERNIA REPAIR SH: Social Determinants of Health Tobacco Use: Medium Risk Smoking Tobacco Use: Former Smokeless Tobacco Use: Never Passive Exposure: Past Alcohol Use: Not on file Financial Resource Strain: Low Risk Difficulty of Paying Living Expenses: Not hard at all Food Insecurity: Unknown Worried About Running Out of Food in the Last Year: Never true Ran Out of Food in the Last Year: Not on file Transportation Needs: Unknown Lack of Transportation (Medical): No Lack of Transportation (Non-Medical): Not on file Physical Activity: Not on file Stress: Not on file Social Connections: Not on file Intimate Partner Violence: Unknown Fear of Current or Ex-Partner: No Emotionally Abused: Not on file Physically Abused: Not on file Sexually Abused: Not on file Depression: Not on file Housing Stability: Unknown Unable to Pay for Housing in the Last Year: Not on file Number of Places Lived in the Last Year: Not on file Unstable Housing in the Last Year: No Allergies: No Known Allergies Weight: No weight available Visit Vitals Smoking Status Former Meds: Current Outpatient Medications on File Prior to Visit Medication Sig Dispense Refill atorvastatin (Lipitor) 40 mg tablet Take 1 tablet (40 mg) by mouth at bedtime. 90 tablet 3 benzonatate (Tessalon) 200 mg capsule TAKE 1 CAPSULE BY MOUTH THREE TIMES A DAY NEEDED Coricidin HBP Chest Nathaniel-Cough 10-200 mg capsule TAKE 1 CAPSULE BY MOUTH FOUR TIMES A DAY dapagliflozin (Farxiga) 10 mg Ta (more content not included)... [facility] 09-25-2022 Note Event monitor urgent report from Dr Burkett for noted non sustained VT- he recommends EPS with possible VT ablation. [facility] 09-25-[address] Burkett notified katia walker via email that event monitor showed non sustained VT. He recommends to schedule pt for EPS/possible VT ablation- orders placed and email sent to Marie Kinney MACHINE SANDER- EP to call and d/w pt or schedule pt soon for clinic appointment to discuss about planned procedure. Isa Rincon NP Division of Cardiology, [facility]- [phone] Pager- [phone] Email- [email or web address] 09-14-2022 Note Review of Systems Cardiovascular: Positive for chest pain, dyspnea on exertion and paroxysmal nocturnal dyspnea. Negative for claudication, cyanosis, irregular heartbeat, leg swelling, near-syncope, orthopnea, palpitations and syncope. Last Wednesday night started having chest pain 10/10 pain level, had to sleep upright in chair, very uncomfortable to lay down. All other systems reviewed and are negative. [facility] 09-14-[address] [facility] SUBJECTIVE Chief Complaint Patient presents with Hospital Follow-up Pt states that he was admitted to [facility] from 09/10-09/12 for an Ablation, kt cerrato , had some clots in right lower lung,also had echo completed Sujata Reyna is a 47 y.o. male here for hospital follow-up. HPI 09/14/2022 -Patient was admitted to [facility] for acute HFrEF and unstable angina at the beginning of August. He was found to have normal coronary angiogram. 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 He had an event monitor placed -Since his discharge from [facility], he was admitted to [facility] for chest pain. He was found to have an acute PE and was started on Eliquis. BLE doppler showed small nonocclusive right femoral vein thrombus. He also noted that he had also traveled down to [place] via car the few days prior to episode. -Since his admission at [facility] last week, he has been feeling better. Chest pain is intermittent but improved. He denies dyspnea, dizziness/LH, palpitations, near syncope, LE edema, bleeding issues. 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 male with history of hypertension and recent admission to an outside hospital due to palpitations. apparently 2 weeks ago the patient had an episode of chest tightness and fluttering, this was associated with lightheadedness and presyncopal symptoms. He was admitted at an outside hospital, his EKG was showing left bundle branch block and the patient was scheduled for echocardiogram and stress test. Patient reported that he had an echocardiogram and stress test done as an outpatient, echo is showing an EF of 45 to 50% with abnormal septal motion. stress test was showing areas of moderate severity perfusion abnormalities in anterior wall. today the patient was complaining of increased chest pain and choking sensation, the patient was sent by cardiology for further evaluation to the emergency department. Patient continues to report increased dyspnea recently, no orthopnea, no paroxysmal nocturnal dyspnea. patient underwent heart cath was unremarkable. Atypical AV erica reentrant tachycardia patient underwent electrophysiology study and radiofrequency ablation of SVT. Last HPI per MACHINE SANDER Emerita Rincon: Sujata Reyna is a 46 y.o. male here for Establish Care (Patient had a stress test 08/27/2022 and failed the test ) Patient is here today to establish care regarding abnormal stress test, echocardiogram, abnormal ECG- Lt BBB, near syncope and unstable angina. 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 Denied radiation of chest tightness, nausea or sweating. PT was evaluated in ED at [facility]- was noted on ECG to have LT BBB and was scheduled for outpt echocardiogram and stress test. Pt states that he continues to have symptoms almost daily or multiple times a day. With symptoms he uses auto B/P cuff and it tells him- abnormal heart rate and unable to obtain b/p. Irebesartan 75 mg bid- had to cut 150 mg in half after starting metoprolol r/t low b/p and fatigue. PMH- HTN PSH- no pertinent cardiac procedures/surgery FMH- Father passed 48 yo aneurysm- (back of neck), HTN; Social- Former smoker 17 yrs- 1 PPD, quit in 2008, Social- beer here and there; denied illicit drug use Patient Active Problem List Diagnosis Abnormal cardiovascular stress test Near syncope Tachycardia Abnormal ECG Left bundle branch block (LBBB) determined by electrocardiography Intermittent palpitations Chronic systolic heart failure (CMS/HCC) Unstable angina (CMS/HCC) Hypertension PSVT (paroxysmal supraventricular tachycardia) (CMS/HCC) AVNRT (AV erica re-entry tachycardia) (CMS/HCC) Myocardiopathy (CMS/HCC) History of cardiac radiofrequency ablation Single subsegmental pulmonary embolism without acute cor pulmonale (CMS/HCC) Past Medical History: Diagnosis Date Hypertension No family history on file. Social History Tobacco Use Smoking status: Former Types: Cigarettes Start date: 2002 Quit date: 2008 Years since quittin.2 Passive exposure: Past Smokeless tobacco: Never Substance Use Topics Alcohol use: Yes Comment: ocassionally Drug use: Never No Known Allergies Review of Systems Constitutional: Negative for chills, decreased appetite, fever, malaise/fatigue and weight gain. Cardiovascular: Positive for chest pain. Negative for claudication, dyspnea on exertion, irregular heartbeat, leg swelling, near-syncope, orthopnea, palpitations, paroxysmal n (more content not included)... [facility] 09-04-2022 Hospital Discharge instructions Patient Education 09/04/2022 09:06:02 Benign Prostatic Hyperplasia Benign Prostatic Hyperplasia Benign prostatic hyperplasia (BPH) is an enlarged prostate gland that is caused by the normal aging process and not by cancer. The prostate is a walnut-sized gland that is involved in the production of semen. It is located in front of the rectum and below the bladder. The bladder stores urine and the urethra is the tube that carries the urine out of the body. The prostate may get bigger as a man gets older. An enlarged prostate can press on the urethra. This can make it harder to pass urine. The build-up of urine in the bladder can cause infection. Back pressure and infection may progress to bladder damage and kidney (renal) failure. What are the causes? This condition is part of a normal aging process. However, not all men develop problems from this condition. If the prostate enlarges away from the urethra, urine flow will not be blocked. If it enlarges toward the urethra and compresses it, there will be problems passing urine. What increases the risk? This condition is more likely to develop in men over the age of 50 years. What are the signs or symptoms? Symptoms of this condition include: Getting up often during the night to urinate. Needing to urinate frequently during the day. Difficulty starting urine flow. Decrease in size and strength of your urine stream. Leaking (dribbling) after urinating. Inability to pass urine. This needs immediate treatment. Inability to completely empty your bladder. Pain when you pass urine. This is more common if there is also an infection. Urinary tract infection (UTI). How is this diagnosed? This condition is diagnosed based on your medical history, a physical exam, and your symptoms. Tests will also be done, such as: A post-void bladder scan. This measures any amount of urine that may remain in your bladder after you finish urinating. A digital rectal exam. In a rectal exam, your health care provider checks your prostate by putting a lubricated, gloved finger into your rectum to feel the back of your prostate gland. This exam detects the size of your gland and any abnormal lumps or growths. An exam of your urine (urinalysis). A prostate specific antigen (PSA) screening. This is a blood test used to screen for prostate cancer. An ultrasound. This test uses sound waves to electronically produce a picture of your prostate gland. Your health care provider may refer you to a specialist in kidney and prostate diseases (urologist). How is this treated? Once symptoms begin, your health care provider will monitor your condition (active surveillance or watchful waiting). Treatment for this condition will depend on the severity of your condition. Treatment may include: Observation and yearly exams. This may be the only treatment needed if your condition and symptoms are mild. Medicines to relieve your symptoms, including: ?Medicines to shrink the prostate. ?Medicines to relax the muscle of the prostate. Surgery in severe cases. Surgery may include: ?Prostatectomy. In this procedure, the prostate tissue is removed completely through an open incision or with a laparoscope or robotics. ?Transurethral resection of the prostate (TURP). In this procedure, a tool is inserted through the opening at the tip of the penis (urethra). It is used to cut away tissue of the inner core of the prostate. The pieces are removed through the same opening of the penis. This removes the blockage. ?Transurethral incision (TUIP). In this procedure, small cuts are made in the prostate. This lessens the prostate's pressure on the urethra. ?Transurethral microwave thermotherapy (TUMT). This procedure uses microwaves to create heat. The heat destroys and removes a small amount of prostate tissue. ?Transurethral needle ablation (TUNA). This procedure uses radio frequencies to destroy and remove a small amount of prostate tissue. ?Interstitial laser coagulation (ILC). This procedure uses a laser to destroy and remove a small amount of prostate tissue. ?Transurethral electrovaporization (TUVP). This procedure uses electrodes to destroy and remove a small amount of prostate tissue. ?Prostatic urethral lift. This procedure inserts an implant to push the lobes of the prostate away from the urethra. Follow these instructions at home: Take [id number] and prescription medicines only as told by your health care provider. Monitor your symptoms for any changes. Contact your health care provider with any changes. Avoid drinking large amounts of liquid before going to bed or out in public. Avoid or reduce how much caffeine or alcohol you drink. Give yourself time when you urinate. Keep all follow-up visits as told by your health care provider. This is important. Contact a health care provider if: You have unexplained back pain. Your symptoms do not get better with treatment. You develop side effects from the medicine you are taking. Your urine becomes very dark or has a bad smell. Your lower abdomen becomes distended and you have trouble passing your urine. Get help right away if: You have a fever or chills. You suddenly cannot urinate. You feel lightheaded, or very dizzy, or you faint. There are large amounts of blood or clots in the urine. Your urinary problems become hard to manage. You develop moderate to severe low back or flank pain. The flank is the side of your body between the ribs and the hip. These symptoms may represent a serious problem that is an emergency. Do not wait to see if the symptoms will go away. Get medical help right away. Call your local emergency services (911 in the [place] Do not drive yourself to the hospital. Summary Benign prostatic hyperplasia (BPH) is an enlarged prostate that is caused by the normal aging process and not by cancer. An enlarged prostate can press on the urethra. This can make it hard to pass urine. This condition is part of a normal aging process and is more likely to develop in men over the age of 50 years. Get help right away if you suddenly cannot urinate. This information is not intended to replace advice given to you by your health care provider. Make sure you discuss any questions you have with your health care provider. Document Released: 06/14/2006 Document Revised: 05/09/2019 Document Reviewed: 07/19/2017 [employer] Patient Education 2020 [employer] Follow Up Care 09/12/2021 08:41:31 With:SIDDHARTHA MOLINA, Benton Zurita, URL Address: [address] [place], [place] [id number]- When: Unknown [facility] 09-02-2022 Note Pt provided with dis charge instructions and education. All questions answered. Meds sent to home pharmacy. Pt walked to main entrance with spouse. [facility] 09-02-2022 Note 30 day event monitor , and echocardiogram in 4-6 weeks. Then F/U with Dr Burkett in about 6 weeks. 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 male with history of hypertension and recent admission to an outside hospital due to palpitations. apparently 2 weeks ago the patient had an episode of chest tightness and fluttering, this was associated with lightheadedness and presyncopal symptoms. He was admitted at an outside hospital, his EKG was showing left bundle branch block and the patient was scheduled for echocardiogram and stress test. Patient reported that he had an echocardiogram and stress test done as an outpatient, echo is showing an EF of 45 to 50% with abnormal septal motion. stress test was showing areas of moderate severity perfusion abnormalities in anterior wall. today the patient was complaining of increased chest pain and choking sensation, the patient was sent by cardiology for further evaluation to the emergency department. Patient continues to report increased dyspnea recently, no orthopnea, no paroxysmal nocturnal dyspnea. patient underwent heart cath was unremarkable. Atypical AV erica reentrant tachycardia patient underwent electrophysiology study and radiofrequency ablation of SVT. Dear Dr. Mikala MD, Sujata is advised to follow up with you within 1-2 weeks. Follow-up with: Cardiology Scheduled appointments: Future Appointments Date Time Provider Department Center 09/14/2022 11:20 AM Justus England NP CARD [facility] Your medication list START taking these medications Instructions Last Dose Given Next Dose Due dapagliflozin 10 mg Commonly known as: Farxiga Take 1 tablet (10 mg) by mouth in the morning for 98 doses. metoprolol succinate XL 200 mg 24 hr tablet Commonly known as: Toprol-XL Take 1 tablet (200 mg) by mouth in the morning for 98 doses. Do not crush or chew. sacubitriL-valsartan 24-26 mg tablet Commonly known as: Entresto Take 1 tablet by mouth in the morning and at bedtime for 196 doses. CONTINUE taking these medications Instructions Last Dose Given Next Dose Due aspirin 81 mg EC tablet atorvastatin 40 mg tablet Commonly known as: Lipitor Take 1 tablet (40 mg) by mouth in the morning. terazosin 10 mg capsule Commonly known as: Hytrin STOP taking these medications irbesartan 150 mg tablet Commonly known as: Avapro metoprolol tartrate 50 mg tablet Commonly known as: Lopressor Where to Get Your Medications These medications were sent to [facility]/pharmacy #[id number] - [address] AT [place] [id number] dapagliflozin 10 mg metoprolol succinate XL 200 mg 24 hr tablet sacubitriL-valsartan 24-26 mg tablet Sujata has No Known Allergies. Disposition: Home or Self Care Discharge Condition: Stable Code Status: Full Code Diagnostic Results Hematology: Results from last 7 days Lab Units 09/02/22 0714 08/28/22 1330 WBC AUTO 10*3/uL 7.90 7.56 HEMOGLOBIN g/dL 14.7 14.0 HEMATOCRIT % 42.3 41.8 MCV fL 88.3 91.1 PLATELETS AUTO 10*3/uL 238 293 INR -- 1.08 Chemistry: Results from last 7 days Lab Units 09/02/22 0714 08/28/22 1330 SODIUM mmol/L 136 139 POTASSIUM mmol/L 3.7 3.7 CHLORIDE mmol/L 102 104 CO2 mmol/L 27 27 BUN mg/dL 13 11 CREATININE mg/dL 0.83 0.82 GLUCOSE mg/dL 87 77 MAGNESIUM mg/dL -- 2.1 CALCIUM mg/dL 9.4 9.8 Results from last 7 days Lab Units 08/28/22 1330 AST U/L 28 ALT U/L 75* ALK PHOS U/L 95 BILIRUBIN TOTAL mg/dL 0.7 Test Results Pending At Discharge: Diet at the time of discharge: regular diet and cardiac diet Activity: Patient currently has no discharge activity orders Objective Blood pressure 127/77, pulse 63, temperature 36.9 ???C (98.5 ???F), temperature source Temporal, resp. rate 15, height 1.753 m (5' 9 ), weight 102 kg (225 lb 1.4 oz), SpO2 100 %. General: Alert and oriented x3. Cardiology: Normal rate, regular rhythm. Lungs: Clear to auscultation, no wheezes, rales or rhonchi, symmetric air entry. Abdomen: Soft, non tender, non distended. Extremities: No pitting edema. Neurology: No focal neuro deficit noted. Total time for discharge - review of data, exam, discussion with providers and care-team, med-rec and orders, arranging follow up, counseling of patient and/or family and documentation was 40 minutes. Signed Flash Calles MD [facility] Medicine 09/02/2022 9:25 AM [facility] 09-02-2022 Note Cardiology Progress Note Subjective F/U: abnormal stress test, abnormal ECHO, new LBBB Assessed at bedside, no acute events overnight. He denies any SOB, dizziness/LH, palpitations, leg swelling, orthopnea. Tele- Sinus rhythm 46-103 bpm overnight- no tachycardia Objective BP 127/77 Pulse 63 Temp 36.9 ???C (98.5 ???F) (Temporal) Resp 15 Ht 1.753 m (5' 9 ) Wt 102 kg (225 lb 1.4 oz) SpO2 100% BMI 33.24 kg/m??? Physical Exam Constitutional: Appearance: Normal appearance. He is normal weight. HENT: Head: Normocephalic and atraumatic. Right Ear: External ear normal. Left Ear: External ear normal. Eyes: Extraocular Movements: Extraocular movements intact. Pupils: Pupils are equal, round, and reactive to light. Neck: Vascular: No carotid bruit. Comments: No JVD Cardiovascular: Rate and Rhythm: Normal rate and regular rhythm. Pulses: Normal pulses. Heart sounds: Normal heart sounds. Comments: B/L Femoral sites, Rt radial site C/D/I, no hematoma or ecchymosis noted, no bruit noted Pulmonary: Effort: Pulmonary effort is normal. Breath sounds: Normal breath sounds. Abdominal: General: Bowel sounds are normal. Palpations: Abdomen is soft. Musculoskeletal: General: Normal range of motion. Cervical back: Neck supple. Right lower leg: No edema. Left lower leg: No edema. Skin: General: Skin is warm and dry. Neurological: General: No focal deficit present. Mental Status: He is alert and oriented to person, place, and time. Psychiatric: Mood and Affect: Mood normal. Behavior: Behavior normal. Thought Content: Thought content normal. Judgment: Judgment normal. Lab Results Component Value Date NA 136 09/02/2022 K 3.7 09/02/2022 CL 102 09/02/2022 ANIONGAP 11 09/02/2022 BUN 13 09/02/2022 CREATININE 0.83 09/02/2022 CALCIUM 9.4 09/02/2022 MG 2.1 08/28/2022 Lab Results Component Value Date BILITOT 0.7 08/28/2022 ALKPHOS 95 08/28/2022 AST 28 08/28/2022 ALT 75 (H) 08/28/2022 PROT 7.9 08/28/2022 ALBUMIN 4.6 08/28/2022 Lab Results Component Value Date WBC 7.90 09/02/2022 RBC 4.79 09/02/2022 HGB 14.7 09/02/2022 HCT 42.3 09/02/2022 MCV 88.3 09/02/2022 MCH 30.7 09/02/2022 MCHC 34.8 09/02/2022 RDW 12.9 09/02/2022 NEUTOPHILPCT 65.0 08/28/2022 LYMPHOPCT 23.1 08/28/2022 MONOPCT 8.7 08/28/2022 EOSPCT 2.0 08/28/2022 BASOPCT 0.7 08/28/2022 NEUTROABS 4.91 08/28/2022 LYMPHSABS 1.75 08/28/2022 MONOSABS 0.66 08/28/2022 EOSABS 0.15 08/28/2022 BASOSABS 0.05 08/28/2022 PLT 238 09/02/2022 NRBC 0.0 08/28/2022 08/31/22 Cardiac cath Conclusion PROCEDURE PHYSICIAN: Geoffrey French MD Clinical Presentation: 46 y.o. male who is admitted with complaints of palpitations, chest pain, and shortness of breath. He has abnormal echo consistent with acute systolic heart failure with EF 45%. He has abnormal cardiac stress test. He is referred for right heart catheterization and coronary angiogram. Final Impression: 1) Normal coronary angiogram 2) normal right heart catheterization 3) tachyarrhythmia noted during the procedure with heart rate of about 120 bpm Plan: 1) optimal med therapy for systolic CHF 2) further electrophysiology evaluation for arrhythmia is recommended ECHO ( 08/19/2022) NM stress test (08/27/2022) Assessment/Plan Active Problems: Abnormal cardiovascular stress test Near syncope Tachycardia Abnormal ECG Left bundle branch block (LBBB) determined by electrocardiography Intermittent palpitations Acute on chronic systolic heart failure, NYHA class 2 (CMS/HCC) Unstable angina (CMS/HCC) PSVT (paroxysmal supraventricular tachycardia) (CMS/HCC) Hypertension #Unstable angina #Abnormal stress test - moderate-sized area of moderate severity perfusion defect in anterior wall, inferior wall w/o reversible ischemia #Newly found midrange EF 45-50%, abnormal septal motion, NYHA I-II #LBBB, new #Palpitations #AVNRT- s/p ablation PLAN: -D/W Dr Burkett and Dr Blas regarding recurrent PSVT and plan for EPS with possible ablation today with Dr Blas- pt voiced understanding and agreement. -GDMT: ASA, lipitor, Toprol 200 mg., entersto 24/26 mg bid, farxiga 10 mg daily today. Monitor renal function and b/p tolerance. Currently euvolemic, and without exacerbation Diuretic therapy- continue farxiga and monitor Monitor daily weights, I&O, fluid restriction 1.5-2L/day, renal function and electrolytes- please maintain K+>4 and Mg > 2 -AVNRT s/p ablation, no acute events or tachycardia overnight. Pt is doing well. May DC home today, may return to work in [address] Blas. Will DC pt with 30 day monitor and repeat echo in 6 weeks and f/U with Dr Burkett in [place]. F/U in heart failure clinic in 1 week Discussed with patient/patients family and django developer Dr. Paula, Dr Blas and Dr Madelaine Rincon, [facility] Cardiovascular Medicine [facility] 2022 Note Indications for elec trophysiologic study: The patient is a 47-year-old gentleman who presented with palpitations and near syncope. He was noted to be in a wide-complex tachycardia with a rate of 150 bpm. This is persisted. He underwent heart catheterization was found to be normal. He will undergo electrophysiologic study today to determine the exact mechanism of the tachycardia and then potential ablation. Procedure: After written informed consent was obtained he was brought to the electrophysiology laboratory in the fasting state. The right and left groins were prepped and draped in usual manner 1% Xylocaine solution infiltrated for local anesthesia. Utilizing percutaneous technique the right and left femoral veins were cannulated and under fluoroscopic guidance catheters were advanced to a level of the sinus node, across the Cuspid valve to the His bundle position and in the right ventricular apical region. The coronary sinus was also cannulated. Arterial line was also placed for blood pressure monitoring.Spontaneous intervals were measured and programmed electrical stimulation of both atrium and ventricle were performed. A tachycardia was induced that was identical to that observed clinically and was noted to be a typical AV erica reentrant tachycardia. Utilizing catheter mapping and three-dimensional noncontact mapping A series of radiofrequency ablation lesions were delivered around the origin of the coronary sinus. These produced a slow junctional rhythm. Following the last radiofrequency application repeat programmed stimulation was unable to reinduce the tachycardia.This was considered a successful endpoint and the catheters were removed and hemostasis obtained by direct pressure over the puncture site areas. He was returned to the holding area in stable hemodynamic condition. Results of electrophysiologic study: See enclosed data sheets Impressions: Atypical AV erica reentrant tachycardia Comprehensive electrophysiologic study with coronary sinus cannulation Catheter mapping and three-dimensional noncontact mapping Radiofrequency ablation of SVT Fluoroscopy Conscious sedation Arterial line placement Adrien Blas M.D. Distinguished [employer]amic [employer] pens assembler and Pediatrics Director: Cardiac Electrophysiology Program [facility] 2022 Note Patient: Sujata shukla Procedure Information Date/Time: 09/01/22 1535 Procedure: EP Study possible ablation - PSVT- Near syncope- Lt BBB Location: [facility] ANALYTICAL LAB ANALYST 1 EP / [facility] HVC VASCULAR LAB (Cath) Providers: Adrien Blas MD Clinical information reviewed: Allergies Meds Physical Exam Airway Mallampati: I Cardiovascular - normal exam Dental - normal exam Pulmonary - normal exam Abdominal - normal exam Anesthesia Plan Additional Equipment Requests [facility] 2022 Note Hospital Medicine Daily Progress Note - 2022 12:05 PM; Room: 3165/3165-01 Admission: 08/28/2022 12:50 PM; Length of stay: 4 days THE HOSPITALIST TEAM PREFERS TO USE [employer] CHAT FOR COMMUNICATION 7AM-7PM. IF I DO NOT RESPOND WITHIN 15 MINUTES, PLEASE PAGE ME/CALL THROUGH THE [employer] NITRATE CRYSTALLIZER. FROM 7PM-7AM, PLEASE PAGE [phone](COVR) Code Status: Full Code Discharge Destination: home Expected Discharge: tomorrow Overview Patient is seen for evaluation and management of chest pain, suspected atrial flutter Subjective patient seen and evaluated at bedside today, patient reported no chest pain or any significant event overnight. patient underwent left heart catheter yesterday was uneventful. Physical Exam Visit Vitals BP 132/75 (BP Location: Left arm) Pulse 69 Temp 36.7 ???C (98.1 ???F) (Temporal) Resp 13 Intake/Output Summary (Last 24 hours) at 2022 1205 Last data filed at 2022 0615 Gross per 24 hour Intake 0 ml Output 1285 ml Net -1285 ml Physical Exam Vitals reviewed. Constitutional: Appearance: Normal appearance. HENT: Head: Normocephalic and atraumatic. Eyes: Extraocular Movements: Extraocular movements intact. Pupils: Pupils are equal, round, and reactive to light. Cardiovascular: Rate and Rhythm: Normal rate and regular rhythm. Pulmonary: Effort: Pulmonary effort is normal. Skin: General: Skin is warm. Capillary Refill: Capillary refill takes less than 2 seconds. Neurological: General: No focal deficit present. Mental Status: He is alert and oriented to person, place, and time. Psychiatric: Mood and Affect: Mood normal. Estimated body mass index is 33.31 kg/m??? as calculated from the following: Height as of this encounter: 1.753 m (5' 9 ). Weight as of this encounter: 102 kg (225 lb 8.5 oz). Active Inpatient Problems Active Problems: Near syncope Tachycardia Abnormal ECG Left bundle branch block (LBBB) determined by electrocardiography Intermittent palpitations Acute on chronic systolic heart failure, NYHA class 2 (CMS/HCC) Unstable angina (CMS/[facility]) Hypertension Abnormal cardiovascular stress test PSVT (paroxysmal supraventricular tachycardia) ([facility]) Assessment and Plan -Unstable angina patient underwent heart cath yesterday was unremarkable, cardiology team following along appreciate input. echocardiogram showed ejection fraction 45 to 50% with abnormal septal motion. continue goal-directed medical management. - New onset heart failure NYHA class II with reduced ejection fraction- continue GDMT. cardiology following along appreciate input -Recurrent PSVT- plan for EP studies today and possible ablation. VTE Prophylaxis: Start Heparin subcutaneous after EP study today Scheduled Meds aspirin, 81 mg, oral, BID atorvastatin, 40 mg, oral, Daily dapagliflozin, 10 mg, oral, Daily metoprolol succinate XL, 200 mg, oral, Daily sacubitriL-valsartan, 1 tablet, oral, BID Pertinent Investigations Hematology: Results from last 7 days Lab Units 08/28/22 1330 WBC AUTO 10*3/uL 7.56 HEMOGLOBIN g/dL 14.0 HEMATOCRIT % 41.8 MCV fL 91.1 PLATELETS AUTO 10*3/uL 293 INR 1.08 Chemistry: Results from last 7 days Lab Units 08/28/22 1330 SODIUM mmol/L 139 POTASSIUM mmol/L 3.7 CHLORIDE mmol/L 104 CO2 mmol/L 27 BUN mg/dL 11 CREATININE mg/dL 0.82 GLUCOSE mg/dL 77 MAGNESIUM mg/dL 2.1 CALCIUM mg/dL 9.8 Results from last 7 days Lab Units 08/28/22 1330 AST U/L 28 ALT U/L 75* ALK PHOS U/L 95 BILIRUBIN TOTAL mg/dL 0.7 Historical Values: (Includes values prior to this admission) No results found for: PREALBUMIN, TSH, T3FREE, FREET4, CORTISOL, FEV1, [id number], DLCO, RVSP, HDL, LDL No results found for: [id number], IRON, TIBC, C3, C4, HELEN, CANCA, ASO, PSA, CEA, CA125, CA199, AFP, CA153 Imaging Cardiac catheterization PROCEDURE PHYSICIAN: Geoffrey French MD Clinical Presentation: 46 y.o. male who is admitted with complaints of palpitations, chest pain, and shortness of breath. He has abnormal echo consistent with acute systolic heart failure with EF 45%. He has abnormal cardiac stress test. He is referred for right heart catheterization and coronary angiogram. Final Impression: 1) Normal coronary angiogram 2) normal right heart catheterization 3) tachyarrhythmia noted during the procedure with heart rate of about 120 bpm Plan: 1) optimal med therapy for systolic CHF 2) further electrophysiology evaluation for arrhythmia is recommended Procedures Performed: coronary angiogram, right heart catheterization, conscious sedation, ultrasound-guided vascular access Procedure Description: The patient was brought to the cardiac catheterization lab in a fasting state. Informed written consent was obtained. he was prepped and draped in usual sterile fashion over the right wrist and bilateral groins. Time-out was performed. he was given Versed and fentanyl for sedation. 1% lidocaine (more content not included)... [facility] 2022 Note Cardiology Progress Note Subjective F/U: abnormal stress test, abnormal ECHO, new LBBB Assessed at bedside, no acute events overnight. He denies any SOB, dizziness/LH, palpitations, leg swelling, orthopnea. Tele- Sinus rhythm 46-103 bpm overnight Objective BP 134/76 Pulse 67 Temp 37.2 ???C (98.9 ???F) (Temporal) Resp 15 Ht 1.753 m (5' 9 ) Wt 102 kg (225 lb 8.5 oz) SpO2 92% BMI 33.31 kg/m??? Physical Exam Constitutional: Appearance: Normal appearance. He is normal weight. HENT: Head: Normocephalic and atraumatic. Right Ear: External ear normal. Left Ear: External ear normal. Eyes: Extraocular Movements: Extraocular movements intact. Pupils: Pupils are equal, round, and reactive to light. Neck: Vascular: No carotid bruit. Comments: No JVD Cardiovascular: Rate and Rhythm: Normal rate and regular rhythm. Pulses: Normal pulses. Heart sounds: Normal heart sounds. Comments: Rt radial site C/D/I, no hematoma or ecchymosis noted, no bruit noted Pulmonary: Effort: Pulmonary effort is normal. Breath sounds: Normal breath sounds. Abdominal: General: Bowel sounds are normal. Palpations: Abdomen is soft. Musculoskeletal: General: Normal range of motion. Cervical back: Neck supple. Right lower leg: No edema. Left lower leg: No edema. Skin: General: Skin is warm and dry. Neurological: General: No focal deficit present. Mental Status: He is alert and oriented to person, place, and time. Psychiatric: Mood and Affect: Mood normal. Behavior: Behavior normal. Thought Content: Thought content normal. Judgment: Judgment normal. Lab Results Component Value Date NA 139 08/28/2022 K 3.7 08/28/2022 CL 104 08/28/2022 ANIONGAP 12 08/28/2022 BUN 11 08/28/2022 CREATININE 0.82 08/28/2022 CALCIUM 9.8 08/28/2022 MG 2.1 08/28/2022 Lab Results Component Value Date BILITOT 0.7 08/28/2022 ALKPHOS 95 08/28/2022 AST 28 08/28/2022 ALT 75 (H) 08/28/2022 PROT 7.9 08/28/2022 ALBUMIN 4.6 08/28/2022 Lab Results Component Value Date WBC 7.56 08/28/2022 RBC 4.59 08/28/2022 HGB 14.0 08/28/2022 HCT 41.8 08/28/2022 MCV 91.1 08/28/2022 MCH 30.5 08/28/2022 MCHC 33.5 08/28/2022 RDW 12.8 08/28/2022 NEUTOPHILPCT 65.0 08/28/2022 LYMPHOPCT 23.1 08/28/2022 MONOPCT 8.7 08/28/2022 EOSPCT 2.0 08/28/2022 BASOPCT 0.7 08/28/2022 NEUTROABS 4.91 08/28/2022 LYMPHSABS 1.75 08/28/2022 MONOSABS 0.66 08/28/2022 EOSABS 0.15 08/28/2022 BASOSABS 0.05 08/28/2022 PLT 293 08/28/2022 NRBC 0.0 08/28/2022 08/31/22 Cardiac cath Conclusion PROCEDURE PHYSICIAN: Geoffrey French MD Clinical Presentation: 46 y.o. male who is admitted with complaints of palpitations, chest pain, and shortness of breath. He has abnormal echo consistent with acute systolic heart failure with EF 45%. He has abnormal cardiac stress test. He is referred for right heart catheterization and coronary angiogram. Final Impression: 1) Normal coronary angiogram 2) normal right heart catheterization 3) tachyarrhythmia noted during the procedure with heart rate of about 120 bpm Plan: 1) optimal med therapy for systolic CHF 2) further electrophysiology evaluation for arrhythmia is recommended ECHO ( 08/19/2022) NM stress test (08/27/2022) Assessment/Plan Active Problems: Abnormal cardiovascular stress test Near syncope Tachycardia Abnormal ECG Left bundle branch block (LBBB) determined by electrocardiography Intermittent palpitations Acute on chronic systolic heart failure, NYHA class 2 (CMS/HCC) Unstable angina (CMS/HCC) Hypertension #Unstable angina #Abnormal stress test - moderate-sized area of moderate severity perfusion defect in anterior wall, inferior wall w/o reversible ischemia #Newly found midrange EF 45-50%, abnormal septal motion, NYHA I-II #LBBB, new #Palpitations #NSVT PLAN: -D/W Dr Burkett and Dr Blas regarding recurrent PSVT and plan for EPS with possible ablation today with Dr Blas- pt voiced understanding and agreement. -GDMT: ASA, lipitor, switch to Toprol 200 mg today. Start entersto 24/26 mg bid, farxiga 10 mg daily today. Monitor renal function and b/p tolerance. Currently euvolemic, and without exacerbation Diuretic therapy- start farxiga and monitor Monitor daily weights, I&O, fluid restriction 1.5-2L/day, renal function and electrolytes- please maintain K+>4 and Mg > 2 -Dependent upon results of EPS/ablation pt may be able to DC home this afternoon or most likely tomorrow am. Discussed with patient/patients family and django developer Dr. Paula. Isa Rincon NP [facility]TP Cardiovascular Medicine [facility] 08-31-2022 Note Patient: Sujata shukla Procedure Information Date/Time: 08/31/22 1630 Procedures: Coronary angiography (Bilateral) Right heart cath Location: [facility]LY[facility] [address] / [facility] VASCULAR [facility] (Cath) Providers: Geoffrey French MD Clinical information reviewed: Allergies Meds Physical Exam Airway Mallampati: II TM distance: <3 FB Neck ROM: full Cardiovascular - normal exam Rhythm: regular Dental Pulmonary - normal exam Abdominal - normal exam Anesthesia Plan ASA 3 other (Conscious sedation) Anesthetic plan and risks discussed with patient. Use of blood products discussed with patient who consented to blood products. Additional Equipment Requests [facility] 08-31-2022 Note Consult for HF diet education. Pt NPO at this time, pending angiogram today. Reports good appetite and intakes [employer]. No other nutrition related concerns. No wt history per records, pt states wt has been stable. Diet Education: Nutrition History: Compliant with diet recommendations Diet: 2g Na, low fat/low cholesterol Diet Literature: given to patient Expect Comply: good Teach back method: teach back used to show pt understanding, pt understands the importance of diet in relation to their disease, and pt able to repeat info back in own words Pt reports mostly home cooked meals at home. On occasion will get takeout. Reports they read labels and are aware of sodium content of foods. Understands the relationship of sodium and heart failure. No questions or concerns at this time. Recommend heart healthy diet when diet advanced. [facility] 08-31-[address] [facility] Medicine Daily Progress Note - 08/31/2022 1:38 PM; Room: [address] [place] [address] Admission: 08/28/2022 12:50 PM; Length of stay: 3 days THE HOSPITALIST TEAM PREFERS TO USE [employer] CHAT FOR COMMUNICATION 7AM-7PM. IF I DO NOT RESPOND WITHIN 15 MINUTES, PLEASE PAGE ME/CALL THROUGH THE [employer] NITRATE CRYSTALLIZER. FROM 7PM-7AM, PLEASE PAGE [phone](COVR) Code Status: Full Code Discharge Destination: home Expected Discharge: 1 to 2-day Overview Patient is seen for evaluation and management of chest pain. Subjective seen and evaluated at the bedside, at the bedside. patient had episodes of PSVT on telemetry, he did not have symptoms at that time. He reports no chest pain, no increase shortness of breath. he is n.p.o. pending coronary angiogram today. Physical Exam Visit Vitals BP 119/81 (BP Location: Left arm) Pulse 61 Temp 36.6 ???C (97.9 ???F) (Temporal) Resp 11 Intake/Output Summary (Last 24 hours) at 08/31/2022 1338 Last data filed at 08/31/2022 0930 Gross per 24 hour Intake 720 ml Output 2025 ml Net -1305 ml Physical Exam Eyes: Pupils: Pupils are equal, round, and reactive to light. Cardiovascular: Rate and Rhythm: Normal rate and regular rhythm. Pulmonary: Effort: Pulmonary effort is normal. Breath sounds: Normal breath sounds. Abdominal: General: Bowel sounds are normal. Palpations: Abdomen is soft. Musculoskeletal: General: Normal range of motion. Skin: General: Skin is warm. Capillary Refill: Capillary refill takes less than 2 seconds. Neurological: General: No focal deficit present. Mental Status: He is alert and oriented to person, place, and time. Psychiatric: Mood and Affect: Mood normal. Estimated body mass index is 33.63 kg/m??? as calculated from the following: Height as of this encounter: 1.753 m (5' 9 ). Weight as of this encounter: 103 kg (227 lb 11.8 oz). Active Inpatient Problems Active Problems: Near syncope Tachycardia Abnormal ECG Left bundle branch block (LBBB) determined by electrocardiography Intermittent palpitations Acute on chronic systolic heart failure, NYHA class 2 (CMS/HCC) Unstable angina (CMS/HCC) Hypertension Abnormal cardiovascular stress test Assessment and Plan 46-year-old male with past medical history significant for recent diagnosis with CHF and presentation due to near syncopal event, work-up included stress test which was positive. Patient was sent for further evaluation due to chest pain #Unstable angina #Acute on chronic congestive heart failure with reduced ejection fraction to 45%, NYHA class II #Recent abnormal stress test #Hypertension - pending coronary angiogram today. Continue with increased dose of metoprolol. Cardiology added Entresto and Farxiga to his CHF regimen. -troponin is 0.00, BNP is 27. EKG is showing normal sinus rhythm with sinus arrhythmia, no ST-T wave changes. -Chest x-ray is showing no acute cardiopulmonary process -continue with antiplatelets and statin -full code -cardiac diet Plan of care discussed with the patient at the bedside VTE Prophylaxis: Heparin subcutaneous Scheduled Meds aspirin, 81 mg, oral, BID atorvastatin, 40 mg, oral, Daily dapagliflozin, 10 mg, oral, Daily heparin (porcine), 5,000 Units, subcutaneous, q12h VIRI [START ON 2022] metoprolol succinate XL, 200 mg, oral, Daily metoprolol tartrate, 100 mg, oral, BID [START ON 2022] sacubitriL-valsartan, 1 tablet, oral, BID Pertinent Investigations Hematology: Results from last 7 days Lab Units 08/28/22 1330 WBC AUTO 10*3/uL 7.56 HEMOGLOBIN g/dL 14.0 HEMATOCRIT % 41.8 MCV fL 91.1 PLATELETS AUTO 10*3/uL 293 INR 1.08 Chemistry: Results from last 7 days Lab Units 08/28/22 1330 SODIUM mmol/L 139 POTASSIUM mmol/L 3.7 CHLORIDE mmol/L 104 CO2 mmol/L 27 BUN mg/dL 11 CREATININE mg/dL 0.82 GLUCOSE mg/dL 77 MAGNESIUM mg/dL 2.1 CALCIUM mg/dL 9.8 Results from last 7 days Lab Units 08/28/22 1330 AST U/L 28 ALT U/L 75* ALK PHOS U/L 95 BILIRUBIN TOTAL mg/dL 0.7 Historical Values: (Includes values prior to this admission) No results found for: PREALBUMIN, TSH, T3FREE, FREET4, CORTISOL, FEV1, APU7OQI, DLCO, RVSP, HDL, LDL No results found for: [id number], IRON, TIBC, C3, C4, HELEN, CANCA, ASO, PSA, CEA, CA125, CA199, AFP, CA153 Imaging ECG 12 lead Normal sinus rhythm with sinus arrhythmia Right axis deviation Non-specific intra-ventricular conduction block Abnormal ECG No previous ECGs available Confirmed by Barbara VERA, L.S. (2) on 08/28/2022 2:26:42 PM XR chest 1 view Narrative: XR CHEST 1 VIEW CLINICAL INFORMATION: Chest pain, hypertension. COMPARISON: None. Impression: *No acute cardiopulmonary disease. *Normal cardiomediastinal silhouette. Electronically signed: Jensen Degroot. Discharge Planning Discharge Planning Living Arrangements: Spouse/significant other Support Systems: Spouse/significant other, Family members Typ (more content not included)... [facility] 08-31-2022 Note Cardiology Progress Note Subjective F/U: abnormal stress test, abnormal ECHO, new LBBB Assessed at bedside, no acute events overnight. Awaiting cardiac cath today He denies any SOB, dizziness/LH, palpitations, leg swelling, orthopnea. Tele- Sinus rhythm 54-80 bpm overnight Objective BP 119/81 (BP Location: Left arm) Pulse 61 Temp 36.6 ???C (97.9 ???F) (Temporal) Resp 11 Ht 1.753 m (5' 9 ) Wt 103 kg (227 lb 11.8 oz) SpO2 94% BMI 33.63 kg/m??? Physical Exam Constitutional: Appearance: Normal appearance. He is normal weight. HENT: Head: Normocephalic and atraumatic. Right Ear: External ear normal. Left Ear: External ear normal. Eyes: Extraocular Movements: Extraocular movements intact. Pupils: Pupils are equal, round, and reactive to light. Neck: Vascular: No carotid bruit. Comments: No JVD Cardiovascular: Rate and Rhythm: Normal rate and regular rhythm. Pulses: Normal pulses. Heart sounds: Normal heart sounds. Pulmonary: Effort: Pulmonary effort is normal. Breath sounds: Normal breath sounds. Abdominal: General: Bowel sounds are normal. Palpations: Abdomen is soft. Musculoskeletal: General: Normal range of motion. Cervical back: Neck supple. Right lower leg: No edema. Left lower leg: No edema. Skin: General: Skin is warm and dry. Neurological: General: No focal deficit present. Mental Status: He is alert and oriented to person, place, and time. Psychiatric: Mood and Affect: Mood normal. Behavior: Behavior normal. Thought Content: Thought content normal. Judgment: Judgment normal. Lab Results Component Value Date NA 139 08/28/2022 K 3.7 08/28/2022 CL 104 08/28/2022 ANIONGAP 12 08/28/2022 BUN 11 08/28/2022 CREATININE 0.82 08/28/2022 CALCIUM 9.8 08/28/2022 MG 2.1 08/28/2022 Lab Results Component Value Date BILITOT 0.7 08/28/2022 ALKPHOS 95 08/28/2022 AST 28 08/28/2022 ALT 75 (H) 08/28/2022 PROT 7.9 08/28/2022 ALBUMIN 4.6 08/28/2022 Lab Results Component Value Date WBC 7.56 08/28/2022 RBC 4.59 08/28/2022 HGB 14.0 08/28/2022 HCT 41.8 08/28/2022 MCV 91.1 08/28/2022 MCH 30.5 08/28/2022 MCHC 33.5 08/28/2022 RDW 12.8 08/28/2022 NEUTOPHILPCT 65.0 08/28/2022 LYMPHOPCT 23.1 08/28/2022 MONOPCT 8.7 08/28/2022 EOSPCT 2.0 08/28/2022 BASOPCT 0.7 08/28/2022 NEUTROABS 4.91 08/28/2022 LYMPHSABS 1.75 08/28/2022 MONOSABS 0.66 08/28/2022 EOSABS 0.15 08/28/2022 BASOSABS 0.05 08/28/2022 PLT 293 08/28/2022 NRBC 0.0 08/28/2022 ECHO ( 08/19/2022) NM stress test (08/27/2022) Assessment/Plan Active Problems: Abnormal cardiovascular stress test Near syncope Tachycardia Abnormal ECG Left bundle branch block (LBBB) determined by electrocardiography Intermittent palpitations Acute on chronic systolic heart failure, NYHA class 2 (CMS/HCC) Unstable angina ([facility]/HCC) Hypertension #Unstable angina #Abnormal stress test - moderate-sized area of moderate severity perfusion defect in anterior wall, inferior wall w/o reversible ischemia #Newly found midrange EF 45-50%, abnormal septal motion, NYHA I-II #LBBB, new #Palpitations #NSVT PLAN: -Patient scheduled for coronary angiogram today. -GDMT: Metoprolol increased to 100mg BID in light of PSVT episode over the weekend, no PVC's, VT or A fib noted, plan to switch to Toprol tomorrow. Stop losartan and start entersto 24/26 mg bid, farxiga 10 mg daily tomorrow. Monitor renal function and b/p tolerance. - NYHC I-II b Currently euvolemic, and without exacerbation Diuretic therapy- start farxiga and monitor Monitor daily weights, I&O, fluid restriction 1.5-2L/day, renal function and electrolytes- please maintain K+>4 and Mg > 2 -Given PRN SL nitroglycerin for chest pain. -Consider event monitor at discharge. Discussed with patient/patients family and django developer Dr. Paula. Isa iRncon NP [facility]TP Cardiovascular Medicine [facility] 08-31-2022 Note Social Work Note Under Sheriff met with patient and at bedside to discuss discharge planning. Patient is from home with ; home is two levels and patient claims to be independent with mobility. No PT/OT ordered. Patient denies C and community resources. can transport home at DC. Likely no other needs. [facility] 08-30-2022 Note Cardiology Progress Note Subjective F/U: abnormal stress test, abnormal ECHO, new LBBB Patient seen and examined this AM. No acute events overnight. He states he had a brief episode of chest pain overnight but it was short lived and less severe than prior episodes. He denies any SOB, dizziness/LH, palpitations, leg swelling, orthopnea. Objective Patient Vitals for the past 24 hrs: BP Temp Temp src Pulse Resp SpO2 08/30/22 1303 124/78 -- -- (!) 169 -- -- 08/30/22 1122 130/76 -- -- 78 16 98 % 08/30/22 0724 113/64 36.6 ???C (97.9 ???F) Temporal 62 16 96 % 08/30/22 0542 135/83 36.7 ???C (98 ???F) Temporal 65 13 -- 08/29/22 2036 123/72 36.7 ???C (98.1 ???F) Temporal 67 20 96 % 08/29/22 1616 -- -- -- 68 15 -- 08/29/22 1605 120/77 -- -- 57 17 -- Physical Exam Constitutional: Appearance: Normal appearance. He is normal weight. HENT: Head: Normocephalic and atraumatic. Right Ear: External ear normal. Left Ear: External ear normal. Eyes: Extraocular Movements: Extraocular movements intact. Pupils: Pupils are equal, round, and reactive to light. Neck: Vascular: No carotid bruit. Comments: No JVD Cardiovascular: Rate and Rhythm: Normal rate and regular rhythm. Pulses: Normal pulses. Heart sounds: Normal heart sounds. Pulmonary: Effort: Pulmonary effort is normal. Breath sounds: Normal breath sounds. Abdominal: General: Bowel sounds are normal. Palpations: Abdomen is soft. Musculoskeletal: General: Normal range of motion. Cervical back: Neck supple. Right lower leg: No edema. Left lower leg: No edema. Skin: General: Skin is warm and dry. Neurological: General: No focal deficit present. Mental Status: He is alert and oriented to person, place, and time. Psychiatric: Mood and Affect: Mood normal. Behavior: Behavior normal. Thought Content: Thought content normal. Judgment: Judgment normal. Lab Results Component Value Date NA 139 08/28/2022 K 3.7 08/28/2022 CL 104 08/28/2022 ANIONGAP 12 08/28/2022 BUN 11 08/28/2022 CREATININE 0.82 08/28/2022 CALCIUM 9.8 08/28/2022 MG 2.1 08/28/2022 Lab Results Component Value Date BILITOT 0.7 08/28/2022 ALKPHOS 95 08/28/2022 AST 28 08/28/2022 ALT 75 (H) 08/28/2022 PROT 7.9 08/28/2022 ALBUMIN 4.6 08/28/2022 Lab Results Component Value Date WBC 7.56 08/28/2022 RBC 4.59 08/28/2022 HGB 14.0 08/28/2022 HCT 41.8 08/28/2022 MCV 91.1 08/28/2022 MCH 30.5 08/28/2022 MCHC 33.5 08/28/2022 RDW 12.8 08/28/2022 NEUTOPHILPCT 65.0 08/28/2022 LYMPHOPCT 23.1 08/28/2022 MONOPCT 8.7 08/28/2022 EOSPCT 2.0 08/28/2022 BASOPCT 0.7 08/28/2022 NEUTROABS 4.91 08/28/2022 LYMPHSABS 1.75 08/28/2022 MONOSABS 0.66 08/28/2022 EOSABS 0.15 08/28/2022 BASOSABS 0.05 08/28/2022 PLT 293 08/28/2022 NRBC 0.0 08/28/2022 ECHO ( 08/19/2022) NM stress test (08/27/2022) Assessment/Plan Active Problems: Near syncope Tachycardia Abnormal ECG Left bundle branch block (LBBB) determined by electrocardiography Intermittent palpitations Acute on chronic systolic heart failure, NYHA class 2 ([facility]/HCC) Unstable angina ([facility]) Hypertension Abnormal cardiovascular stress test #Unstable angina #Abnormal stress test - moderate-sized area of moderate severity perfusion defect in anterior wall, inferior wall w/o reversible ischemia #Newly found midrange EF 45-50%, abnormal septal motion, NYHA I-II #LBBB, new #Palpitations #NSVT PLAN: -Patient scheduled for coronary angiogram tomorrow. Discussed risks/benefits, risks including bleeding, infection, renal impairment, stroke, [place], - he states understanding and is agreeable to proceed. Keep NPO after midnight. -GDMT: Metoprolol increased to 100mg BID in light of PSVT episode today, plan to switch to Toprol at discharge. Continue losartan 25mg daily. -Continue ASA, statin. -Given PRN SL nitroglycerin for chest pain. -Consider event monitor at discharge. Discussed with patient/patients family and django developer Dr. Paula. Justus England, LINDA [facility]TP Cardiovascular Medicine [facility] 08-30-2022 Note Hospital Medicine Daily Progress Note - 08/30/2022 11:17 AM; Room: [address] [place] [address] Admission: 08/28/2022 12:50 PM; Length of stay: 2 days THE HOSPITALIST TEAM PREFERS TO USE [employer] CHAT FOR COMMUNICATION 7AM-7PM. IF I DO NOT RESPOND WITHIN 15 MINUTES, PLEASE PAGE ME/CALL THROUGH THE [employer] NITRATE CRYSTALLIZER. FROM 7PM-7AM, PLEASE PAGE [phone](COVR) Code Status: Full Code Discharge Destination: home Expected Discharge: 2 to 3 days Overview Patient is seen for evaluation and management of chest pain. Subjective seen and evaluated at the bedside, at the bedside. he had another chest pain episode overnight but it was less intense compared to the prior ones. No nausea or vomiting, no shortness of breath Physical Exam Visit Vitals BP 113/64 Pulse 62 Temp 36.6 ???C (97.9 ???F) (Temporal) Resp 10 Intake/Output Summary (Last 24 hours) at 08/30/2022 1117 Last data filed at 08/30/2022 0645 Gross per 24 hour Intake 120 ml Output 1700 ml Net -1580 ml Physical Exam Eyes: Pupils: Pupils are equal, round, and reactive to light. Cardiovascular: Rate and Rhythm: Normal rate and regular rhythm. Pulmonary: Effort: Pulmonary effort is normal. Breath sounds: Normal breath sounds. Abdominal: General: Bowel sounds are normal. Palpations: Abdomen is soft. Musculoskeletal: General: Normal range of motion. Skin: General: Skin is warm. Capillary Refill: Capillary refill takes less than 2 seconds. Neurological: General: No focal deficit present. Mental Status: He is alert and oriented to person, place, and time. Psychiatric: Mood and Affect: Mood normal. Estimated body mass index is 33.63 kg/m??? as calculated from the following: Height as of this encounter: 1.753 m (5' 9 ). Weight as of this encounter: 103 kg (227 lb 11.8 oz). Active Inpatient Problems Active Problems: Near syncope Tachycardia Abnormal ECG Left bundle branch block (LBBB) determined by electrocardiography Intermittent palpitations Acute on chronic systolic heart failure, NYHA class 2 (CMS/HCC) Unstable angina (CMS/HCC) Hypertension Abnormal cardiovascular stress test Assessment and Plan 46-year-old male with past medical history significant for recent diagnosis with CHF and presentation due to near syncopal event, work-up included stress test which was positive. Patient was sent for further evaluation due to chest pain #Unstable angina #Acute on chronic congestive heart failure with reduced ejection fraction to 45%, NYHA class II #Recent abnormal stress test #Hypertension - increase Lopressor to 100 twice daily. Continue monitoring on telemetry. Tentative plan for coronary angiogram tomorrow. -troponin is 0.00, BNP is 27. EKG is showing normal sinus rhythm with sinus arrhythmia, no ST-T wave changes. -Chest x-ray is showing no acute cardiopulmonary process -Continue with beta-kristen and ARB's. -continue with antiplatelets and statin -full code -cardiac diet Plan of care discussed with the patient at the bedside VTE Prophylaxis: Heparin subcutaneous Scheduled Meds aspirin, 81 mg, oral, BID atorvastatin, 40 mg, oral, Daily heparin (porcine), 5,000 Units, subcutaneous, q12h VIRI losartan, 25 mg, oral, Daily metoprolol tartrate, 75 mg, oral, BID Pertinent Investigations Hematology: Results from last 7 days Lab Units 08/28/22 1330 WBC AUTO 10*3/uL 7.56 HEMOGLOBIN g/dL 14.0 HEMATOCRIT % 41.8 MCV fL 91.1 PLATELETS AUTO 10*3/uL 293 INR 1.08 Chemistry: Results from last 7 days Lab Units 08/28/22 1330 SODIUM mmol/L 139 POTASSIUM mmol/L 3.7 CHLORIDE mmol/L 104 CO2 mmol/L 27 BUN mg/dL 11 CREATININE mg/dL 0.82 GLUCOSE mg/dL 77 MAGNESIUM mg/dL 2.1 CALCIUM mg/dL 9.8 Results from last 7 days Lab Units 08/28/22 1330 AST U/L 28 ALT U/L 75* ALK PHOS U/L 95 BILIRUBIN TOTAL mg/dL 0.7 Historical Values: (Includes values prior to this admission) No results found for: PREALBUMIN, TSH, T3FREE, FREET4, CORTISOL, FEV1, [id number], DLCO, RVSP, HDL, LDL No results found for: [id number], IRON, TIBC, C3, C4, HELEN, CANCA, ASO, PSA, CEA, CA125, CA199, AFP, CA153 Imaging ECG 12 lead Normal sinus rhythm with sinus arrhythmia Right axis deviation Non-specific intra-ventricular conduction block Abnormal ECG No previous ECGs available Confirmed by Barbara VERA, L.S. (2) on 08/28/2022 2:26:42 PM XR chest 1 view Narrative: XR CHEST 1 VIEW CLINICAL INFORMATION: Chest pain, hypertension. COMPARISON: None. Impression: *No acute cardiopulmonary disease. *Normal cardiomediastinal silhouette. Electronically signed: Jensen Degroot. Discharge Planning Discharge Planning Living Arrangements: Spouse/significant other Support Systems: Spouse/significant other Signed Eddie Scott MD [facility] 08/30/2022 11:17 AM [facility] 08-29-2022 Note Hospital Medicine Daily Progress Note - 08/29/2022 1:28 PM; Room: [address] [place] [address] Admission: 08/28/2022 12:50 PM; Length of stay: 1 days THE HOSPITALIST TEAM PREFERS TO USE [employer] CHAT FOR COMMUNICATION 7AM-7PM. IF I DO NOT RESPOND WITHIN 15 MINUTES, PLEASE PAGE ME/CALL THROUGH THE [employer] NITRATE CRYSTALLIZER. FROM 7PM-7AM, PLEASE PAGE [phone](COVR) Code Status: Full Code Discharge Destination: home Expected Discharge: 2 to 3 days Overview Patient is seen for evaluation and management of chest pain. Subjective seen and evaluated at the bedside, family at the bedside. Patient had another episode of chest pain last night. No increased shortness of breath, no lightheadedness/dizziness. Physical Exam Visit Vitals BP 138/77 (BP Location: Left arm, Patient Position: Lying) Pulse 74 Temp 36.7 ???C (98.1 ???F) (Temporal) Resp 21 Intake/Output Summary (Last 24 hours) at 08/29/2022 1328 Last data filed at 08/29/2022 0657 Gross per 24 hour Intake 456 ml Output 1050 ml Net -594 ml Physical Exam Eyes: Pupils: Pupils are equal, round, and reactive to light. Cardiovascular: Rate and Rhythm: Normal rate and regular rhythm. Pulmonary: Effort: Pulmonary effort is normal. Breath sounds: Normal breath sounds. Abdominal: General: Bowel sounds are normal. Palpations: Abdomen is soft. Musculoskeletal: General: Normal range of motion. Skin: General: Skin is warm. Capillary Refill: Capillary refill takes less than 2 seconds. Neurological: General: No focal deficit present. Mental Status: He is alert and oriented to person, place, and time. Psychiatric: Mood and Affect: Mood normal. Estimated body mass index is 33.63 kg/m??? as calculated from the following: Height as of this encounter: 1.753 m (5' 9 ). Weight as of this encounter: 103 kg (227 lb 11.8 oz). Active Inpatient Problems Active Problems: Near syncope Tachycardia Abnormal ECG Left bundle branch block (LBBB) determined by electrocardiography Intermittent palpitations Acute on chronic systolic heart failure, NYHA class 2 (CMS/HCC) Unstable angina (CMS/HCC) Hypertension Abnormal cardiovascular stress test Assessment and Plan 46-year-old male with past medical history significant for recent diagnosis with CHF and presentation due to near syncopal event, work-up included stress test which was positive. Patient was sent for further evaluation due to chest pain #Unstable angina #Acute on chronic congestive heart failure with reduced ejection fraction to 45%, NYHA class II #Recent abnormal stress test #Hypertension -evaluated at the bedside, cardiology were at the bedside, plan for coronary angiogram on Wednesday. -troponin is 0.00, BNP is 27. EKG is showing normal sinus rhythm with sinus arrhythmia, no ST-T wave changes. -Chest x-ray is showing no acute cardiopulmonary process -Continue with beta-kristen and ARB's. -continue with antiplatelets and statin -full code -cardiac diet Plan of care discussed with the patient at the bedside VTE Prophylaxis: Heparin subcutaneous Scheduled Meds aspirin, 81 mg, oral, BID atorvastatin, 40 mg, oral, Daily heparin (porcine), 5,000 Units, subcutaneous, q12h VIRI losartan, 25 mg, oral, Daily metoprolol tartrate, 50 mg, oral, BID Pertinent Investigations Hematology: Results from last 7 days Lab Units 08/28/22 1330 WBC AUTO 10*3/uL 7.56 HEMOGLOBIN g/dL 14.0 HEMATOCRIT % 41.8 MCV fL 91.1 PLATELETS AUTO 10*3/uL 293 INR 1.08 Chemistry: Results from last 7 days Lab Units 08/28/22 1330 SODIUM mmol/L 139 POTASSIUM mmol/L 3.7 CHLORIDE mmol/L 104 CO2 mmol/L 27 BUN mg/dL 11 CREATININE mg/dL 0.82 GLUCOSE mg/dL 77 MAGNESIUM mg/dL 2.1 CALCIUM mg/dL 9.8 Results from last 7 days Lab Units 08/28/22 1330 AST U/L 28 ALT U/L 75* ALK PHOS U/L 95 BILIRUBIN TOTAL mg/dL 0.7 Historical Values: (Includes values prior to this admission) No results found for: PREALBUMIN, TSH, T3FREE, FREET4, CORTISOL, FEV1, [id number], DLCO, RVSP, HDL, LDL No results found for: [id number], IRON, TIBC, C3, C4, HELEN, CANCA, ASO, PSA, CEA, CA125, CA199, AFP, CA153 Imaging ECG 12 lead Normal sinus rhythm with sinus arrhythmia Right axis deviation Non-specific intra-ventricular conduction block Abnormal ECG No previous ECGs available Confirmed by Barbara VERA, L.S. (2) on 08/28/2022 2:26:42 PM XR chest 1 view Narrative: XR CHEST 1 VIEW CLINICAL INFORMATION: Chest pain, hypertension. COMPARISON: None. Impression: *No acute cardiopulmonary disease. *Normal cardiomediastinal silhouette. Electronically signed: Jensen Degroot. Discharge Planning Discharge Planning Living Arrangements: Spouse/significant other Support Systems: Spouse/significant other Signed Eddie Scott MD Hospital Medicine 08/29/2022 1:28 PM [facility] 08-28-2022 Note Hospital Medicine History and Physical 08/28/2022 3:35 PM THE HOSPITALIST TEAM PREFERS TO USE [employer] CH[employer] FOR COMMUNICATION 7AM-7PM. IF I DO NOT RESPOND WITHIN 15 MINUTES, PLEASE PAGE ME/CALL THROUGH THE [employer] NITRATE CRYSTALLIZER. FROM 7PM-7AM, PLEASE PAGE [phone](COVR) Chief Complaint Chest pain History of Present Illness Sujata Reyna is an 46 y.o. male with history of hypertension and recent admission to an outside hospital due to palpitations. apparently 2 weeks ago the patient had an episode of chest tightness and fluttering, this was associated with lightheadedness and presyncopal symptoms. He was admitted at an outside hospital, his EKG was showing left bundle branch block and the patient was scheduled for echocardiogram and stress test. Patient reports that he had an echocardiogram and stress test done as an outpatient, echo is showing an EF of 45 to 50% with abnormal septal motion. stress test is showing areas of moderate severity perfusion abnormalities in anterior wall. today the patient was complaining of increased chest pain and choking sensation, the patient was sent by cardiology for further evaluation to the emergency department. Patient continues to report increased dyspnea recently, no orthopnea, no paroxysmal nocturnal dyspnea. Review of System and Physical Exam Temp: [36.4 ???C (97.6 ???F)] 36.4 ???C (97.6 ???F) Heart Rate: [59-71] 62 Resp: [12-21] 18 BP: (136-169)/(68-82) 145/73 Physical Exam Constitutional: General: He is not in acute distress. Appearance: Normal appearance. He is not toxic-appearing. HENT: Mouth/Throat: Mouth: Mucous membranes are moist. Eyes: Pupils: Pupils are equal, round, and reactive to light. Cardiovascular: Rate and Rhythm: Normal rate and regular rhythm. Heart sounds: No murmur heard. Pulmonary: Effort: Pulmonary effort is normal. No respiratory distress. Breath sounds: Normal breath sounds. No rales. Abdominal: General: Bowel sounds are normal. There is no distension. Palpations: Abdomen is soft. Tenderness: There is no abdominal tenderness. Genitourinary: Penis: Normal. Musculoskeletal: General: Normal range of motion. Cervical back: Normal range of motion. Skin: General: Skin is warm. Capillary Refill: Capillary refill takes less than 2 seconds. Neurological: General: No focal deficit present. Mental Status: He is alert and oriented to person, place, and time. Cranial Nerves: No cranial nerve deficit. Sensory: No sensory deficit. Motor: No weakness. Coordination: Coordination normal. Psychiatric: Mood and Affect: Mood normal. Review of Systems Problem List Patient Active Problem List Diagnosis Date Noted Near syncope 08/28/2022 Tachycardia 08/28/2022 Abnormal ECG 08/28/2022 Left bundle branch block (LBBB) determined by electrocardiography 08/28/2022 Intermittent palpitations 08/28/2022 Acute on chronic systolic heart failure, NYHA class 2 ([facility]) 08/28/2022 Unstable angina ([facility]) 08/28/2022 Hypertension 08/28/2022 Abnormal cardiovascular stress test 08/28/2022 Assessment and Plan 46-year-old male with past medical history significant for recent diagnosis with CHF and presentation due to near syncopal event, work-up included stress test which was positive. Today the patient was having episodes of chest pain and was sent by cardiology for further evaluation. # Unstable angina # Acute on chronic congestive heart failure with reduced ejection fraction to 45%, NYHA class II # recent abnormal stress test # hypertension - admit to stepdown on telemetry. with possible angiogram on Wednesday. - troponin is 0.00, BNP is pending. EKG is showing normal sinus rhythm with sinus arrhythmia, no ST-T wave changes. - Chest x-ray is showing no acute cardiopulmonary process - discussed with cardiology as initial plan was for coronary angiogram today, they report that they will adjust his medications and monitor him over the - We will hold off on further adjustment of his medications until his been seen by cardiology. - resume metoprolol and irbesartan, continue with antiplatelets and statin - full code - cardiac diet Plan of care discussed with the patient at the bedside VTE Prophylaxis: Heparin subcutaneous ----- Focus of this inpatient stay will remain on problems that need acute care setting for care. We will review available studies and will order additional labs, imaging and other studies as appropriate. As needed medicines are ordered as appropriate. VTE Prophylaxis will be ordered as appropriate. Please see above for management plan for individual hospital problems. Home medications are reviewed and will be continued as appropriate. Patient will be continued to be followed during this hospital stay by a member of [facility]. Past Medical History Past Medical History: Diagnosis Date Hypertension Past Surgical History Past Surgical Hi (more content not included)... [facility] 08-28-2022 Note [place] heart class II Patient to be admitted today to [facility] for cardiac cath and he will have optimization of goal-directed medical therapy as inpatient and education on heart failure [facility] 08-28-2022 Note Plan admission to [facility] with cardiology consult and plan for cardiac cath today or Wednesday to pendent on inpatient service recommendations, telemetry and further testing [facility] 08-28-2022 Note As above continue metoprolol [facility] 08-28-2022 Note As above* [facility] 08-28-2022 Note Palpitations and not ing abnormal heart rhythm per his automatic blood pressure cuff of which is unable to take as blood pressure is concerning for VT and or A-fib Admission and telemetry monitoring He may need 30-day event monitor at discharge [facility] 08-28-2022 Note New left bundle branch block [facility] 08-28-2022 Note Reviewed patient's e chocardiogram and stress test EKG and his symptoms with patient and voiced concerns regarding his multiple symptoms and intermittent tachycardia/Palpitations with near syncope- He is agreeable with admission to [facility] today. [facility] called no beds available we will send patient to emergency room. Her [place] updated and he is agreeable with patient being admitted for planned cardiac cath and evaluation with inpatient stay and telemetryFor any significant arrhythmia [facility] 08-28-2022 Note PT with Multiple epi sodes of near syncope with noted chest tightness and palpitations, Concerning for significant arrhythmia of VT Or A-fib [facility] 08-28-2022 Note MP [facility] 08-28-2022 Note Patient is here toda y to establish care regarding failed stress test. Review of Systems HENT: Positive for hearing loss. Eyes: Positive for vision loss in left eye and vision loss in right eye. Cardiovascular: Positive for palpitations. Respiratory: Positive for cough and snoring. Neurological: Positive for light-headedness. All other systems reviewed and are negative. [facility] 08-28-2022 Note [facility] CARDIOLOGY PROGR ESS NOTE HPI: Sujata Reyna is a 46 y.o. male here for Establish Care (Patient had a stress test 08/27/2022 and failed the test ) Patient is here today to establish care regarding abnormal stress test, echocardiogram, abnormal ECG- Lt BBB, near syncope and unstable angina. 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 Denied radiation of chest tightness, nausea or sweating. PT was evaluated in ED at [facility]- was noted on ECG to have LT BBB and was scheduled for outpt echocardiogram and stress test. Pt states that he continues to have symptoms almost daily or multiple times a day. With symptoms he uses auto B/P cuff and it tells him- abnormal heart rate and unable to obtain b/p. Irebesartan 75 mg bid- had to cut 150 mg in half after starting metoprolol r/t low b/p and fatigue. PMH- HTN PSH- no pertinent cardiac procedures/surgery [facility]- Father passed 48 yo aneurysm- (back of neck), HTN; Social- Former smoker 17 yrs- 1 PPD, quit in 2008, Social- beer here and there; denied illicit drug use Review of Systems HENT: Positive for hearing loss. Eyes: Positive for vision loss in left eye and vision loss in right eye. Cardiovascular: Positive for palpitations. Respiratory: Positive for cough and snoring. Neurological: Positive for light-headedness. All other systems reviewed and are negative. Visit Vitals BP 136/82 (BP Location: Right arm, Patient Position: Sitting, BP Cuff Size: Adult) Pulse 64 Ht 1.753 m (5' 9 ) Wt 106 kg (234 lb 3.2 oz) SpO2 96% BMI 34.59 kg/m??? Smoking Status Former BSA 2.27 m??? No Known Allergies Medications: Current Outpatient Medications on File Prior to Visit Medication Sig Dispense Refill aspirin 81 mg EC tablet Take 81 mg by mouth in the morning and at bedtime. irbesartan (Avapro) 150 mg tablet Take 150 mg by mouth in the morning and at bedtime. metoprolol tartrate (Lopressor) 50 mg tablet Take 150 mg by mouth in the morning and at bedtime. Take one half tablet in the morning and one half tablet at night terazosin (Hytrin) 10 mg capsule Take 10 mg by mouth in the morning. No current facility-administered medications on file prior to visit. Physical Exam: Constitutional: Appearance: Normal appearance. Without apparent distress HENT: Head: Normocephalic and atraumatic. Nose: Nose normal. Mouth/Throat: Mouth: Mucous membranes are moist. Eyes: Extraocular Movements: Extraocular movements intact. Conjunctiva/sclera: Conjunctivae normal. Neck: Vascular: No JVD. Cardiovascular: Rate and Rhythm: Normal rate and regular rhythm. Pulses: Dorsalis pedis pulses are 3 on the right side and 3on the left side. Posterior tibial pulses are 3 on the right side and 3 on the left side. Heart sounds: Normal heart sounds, S1 normal and S2 normal. Pulmonary: Effort: Pulmonary effort is normal. Breath sounds: Normal breath sounds. Abdominal: General: Bowel sounds are normal. Palpations: Abdomen is soft. Musculoskeletal: General: Normal range of motion. Cervical back: Normal range of motion. Right lower leg: No edema. Left lower leg: No edema. Skin: General: Skin is warm and dry. Capillary Refill: Capillary refill takes less than 2 seconds. Neurological: General: No focal deficit present. Mental Status: alert and oriented to person, place, and time. Psychiatric: Mood and Affect: Mood normal. Behavior: Behavior normal. Thought Content: Thought content normal. Judgment: Judgment normal. Labs: 06/05/22 LDL 142 Last lab values have been reviewed . CV Testing: Treadmill stress test- 08/27/22 Echocardiogram 08/19/22 No echocardiogram results found for the past 12 months Assessment/Plan: Near syncope PT with Multiple episodes of near syncope with noted chest tightness and palpitations, Concerning for significant arrhythmia of VT Or A-fib Abnormal cardiovascular stress test Reviewed patient's echocardiogram and stress test EKG and his symptoms with patient and voiced concerns regarding his multiple symptoms and intermittent tachycardia/Palpitations with near syncope- He is agreeable with admission to [facility] today. [facility] called no beds available we will send patient to emergency room. Her [place] updated and he is agreeable with patient being admitted for planned cardiac cath and evaluation with inpatient stay and telemetryFor any significant arrhythmia Abnormal ECG New left bundle branch block Intermittent palpitations Palpitations and noting abnormal heart rhythm per his automatic blood pressure cuff of which is unable to take as blood pressure is concerning for VT and or A-fib Admission and telemetry monitoring He may need 30-day event monitor at discharge Left bundle branch block (LBBB) determined by electroca (more content not included)... [facility] Evaluation + Plan note Future Appointments Appointment Date:09/03/2023 08:00:00 AM Scheduled Provider:Benton CARL MD Location:[facility] Appointment Type:URO Office Visit Diagnostic Tests PendingPSA Total 07/29/23 [facility] Evaluation + Plan note Future Appointments Appointment Date:05/14/2023 09:00:00 AM Scheduled Provider: Location:[facility] Appointment Type:Surgery FT Appointment Date:09/03/2023 08:00:00 AM Scheduled Provider:Benton CARL MD Location:[facility] Appointment Type:URO Office Visit General Surgery [place] Evaluation + Plan note Future Appointments Appointment Date:09/03/2023 08:00:00 AM Scheduled Provider:Benton CARL MD Location:[facility] Appointment Type:URO Office Visit [facility] Hospital course Narrative No data available for this section [facility] Hospital Discharge instructions No data available for this section General Surgery [place] Progress note No data available for this section [facility] Summary Purpose Family History No Family History Records Found No data available for this section No data available for this section No Family History Records FoundNo Family History Records Found Advance Directives No Advanced Directives Records FoundNo Advanced Directives Records FoundNo Advanced Directives Records Found Additional Source Comments Patient Care team informatio n (unrecognized section and content) Personnel Name: Josh Bach MD Address: Address: [address] [place] [address] Personnel Name: Josh Bach MD Address: Address: [address] [place] [address] Personnel Name: Josh Bach MD Address: Address: [address] [place] [address] (unrecognized sect ion and content) No Status Records FoundNo Status Records FoundNo Status Records Found INFORMATION SOURCE (unrecogn ized section and content) DATE CREATED AUTHOR 11/04/2022 [facility] DATE CREATED AUTHOR AUTHOR'S ORGANIZ ATION [facility]/31/2023 [facility] DATE CREATED AUTHOR AUTHOR'S ORGANIZ ATION 06/17/2023 [facility] FOR RECORDS PERTAINING TO PATIENTS WHO ARE OR HAVE BEEN ENROLLED IN A CHEMICAL DEPENDENCY/SUBSTANCEABUSE PROGRAM, SOME INFORMATION MAY BE OMITTED. This clinical summary was aggregated from multiple sources. Caution should be exercised in using it in the provision of clinical care. This summary normalizes information from multiple sources, and as a consequence, information in this document may materially change the coding, format and clinical context of patient data. In addition, data may be omitted in some cases. CLINICAL DECISIONS SHOULD BE BASED ON THE PRIMARY CLINICAL RECORDS. [employer] provides no warranty or guarantee of the accuracy or [phone] in [phone] [id number]
== END 2023-06-23 19:47 | disposition home or self-care (01) ==
LOC: SLEEP 19:46
PROVIDERS: PCP Family Medicine; Visit Provider Internal Medicine Cardiovascular Disease
DX: G47.33 Obstructive sleep apnea (adult) (pediatric) (principal)
CPT/HCPCS: 95811

== ENCOUNTER 2023-07-24 08:59 | Outpatient (OUT) | payer BC, SELFPAY ==
--- OUTSIDE RECORDS SUMMARY | 2023-07-24 09:04 | XMS_ITS | CCD ---
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 Name Role Phone Josh Bach Primary Care [...] Attending Unavailable NILL, Eduardo Zurita Admitting Unavailable BARAZI, MARIE Attending Unavailable BARAZI, MARIE Attending Unavailable SERGEY, ISA Attending Unavailable BARAZI, MARIE Attending Unavailable GAMALIEL, SARYADIRA Admitting Unavailable AHMED, FLASH Attending Unavailable MADELAINE, RISHABH Admitting Unavailable MADELAINE, RISHABH Attending Unavailable MADELAINE, RISHABH Admitting Unavailable MADELAINE, RISHABH Attending Unavailable MADELAINE, RISHABH Admitting Unavailable MADELAINE, RISHABH Attending Unavailable MADELAINE, RISHABH Attending Unavailable BARAZI, MARIE Attending Unavailable EMILY, SHIRA Referring Unavailable EMILY, SHIRA Referring Unavailable MADELAINE, RISHABH Referring Unavailable AHMED, FLASH Referring Unavailable MADELAINE, RISHABH Referring Unavailable MADELAINE, RISHABH Referring Unavailable MADELAINE, RISHABH Attending Unavailable MADELAINE, RISHABH Attending Unavailable JESUS, JUSTUS Attending Unavailable Allergies Allergy Classification Reported Allergen(s) Allergy Type Date of Onset Reaction(s) Facility (1 source) No Known Medication Allergies; Translations: [No Known Medication Allergies] Propensity to adverse reactions (disorder) [facility] Repository Medications Current Medications Medication Drug Class(es) [...] dysfunction, # 30 tab(s), Refills(s) 2, Pharmacy: [facility] 594, 175, cm, 08/30/20 8:53:00 EST, Height/Length Dosing, 109, kg, 08/30/20 8:53:00 EST, Weight Dosing Start Date: 08/30/20 Status: Ordered terazosin 10 mg oral capsule (3 sources) alpha-Adrenergic Kristen Start: 09-04-2022 take 1 capsule by mouth once daily terazosin 10 mg Cap 10 mg = 1 cap(s), Oral, Daily, # 90 cap(s), Refills(s) 3, Pharmacy: [facility]/pharmacy #[id number], 175, cm, 09/04/22 8:34:00 [...] Onset: 3 Episodic Other aftercare (1 source) [facility] (current) use of aspirin; Translations: [INTERMEDIATE CURRENT USE OF ASPIRIN] Onset: 3 Episodic Other aftercare (1 source) Other senior care (current) drug therapy; Translations: [OTH INTERMEDIATE CURRENT DRUG THERAPY] Onset: 3 Episodic Other [...] Test Name Value Interpretation Reference Range Facility Office Visiton 07-20-2023 Follow-up visit [id number] Sujata Reyna 1975 M Date Provider Department Center 07/20/2023 [facility] No family history on file Level of Service:00900 ND OFFICE/OUTPATIENT ESTABLISHED MOD MDM 30 MIN Normal [facility] HPon 06-14-2023 [facility] Electrophysiology Consult Note [facility] Clinic Reason for visit: svt, nsvt, s/p [...] monitor placed due to being admitted at [facility] for chest discomfort and acute PE. 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 [...] was not done. [facility], he was admitted to [facility] for chest pain. He was found to have an acute PE and was started on Eliquis. BLE doppler showed small nonocclusive right femoral vein thrombus. He also noted that he had also traveled down to [place] via car the few days prior to episode. Since his admission at [facility] last week, he has been feeling better. [...] (08/28/2022) O (more content not included)... Normal [facility] NURSNOTEon 06-14-2023 NURSNOTE RN educated pt on d/ c instructions. RN encouraged pt to voice any questions or concerns. Pt verbalizes no questions or concerns at this time. Normal [facility] Orders Onlyon 06-07-2023 Orders Only [id number] Sujata Reyna 1975 M Date Provider Department Center 06/07/2023 [facility]ID[facility] No family history on file Normal [facility] General Surgery Office/Clini c [...] virus vaccine, live, trivalent 04/03/2019 Recorded Normal [facility] Comment on above: Result Comment: Elec tronically Signed By: KEMAR MOLINA, Eduardo Zurita\.br\Date and Time Signed: 05/29/23 10:25 EST Ambulatory Visit Summaryon 1 07-26-2022 Ambulatory Visit Summary SUJATA REYNA :1975 Visit Date:05/26/2023 Ambulatory Visit Instructions Your Care Team Attending Physician - Eduardo REINOSO MD Primary Care Physician - Josh Bach [...] MOLINA, Benton Zurita Where: [facility] Emergency Department Postoperative Documentson Postoperative Documents [id number] IFF [facility] Reminderson 05-26-2023 Reminders - From: Leanne Iyer LPN To: GSN - Clinical; Sent: 05/26/2023 16:50:18 EST Show up: 04/13/2033 07:00:00 EDT Subject: colonoscopy recall Due Date/Time: 05/14/2033 07:00:00 EST Reminder/Recall Patient due for screening colonoscopy 05/14/2033. [facility] IntraOperative Documentson 07-19-2022 IntraOperative Documents [id number] TIFF Normal [facility] Consenton 05-17-2023 Consent [id number]#[id number] IFF Normal [facility] Discharge Instructionson Discharge Instructions [id number] IFF Normal [facility] Main OR Intraoperative Recor don 05-17-2023 Main OR Intraoperative Record IntraOp Document Type FT Summary Primary Physician: Eduardo REINOSO MD Finalized Date/Time: 05/17/23 12:28:54 Pt. Name: SUJATA REYNA Bridgette Panda/Sex: 1975 Male Med Rec #: [id number] Physician: Eduardo REINOSO MD Financial #: [id number] Pt. Type: O Room/Bed: / Admit/Disch: 05/14/23 [...] General Comments: Colonoscopy stop time at 0812./MIKE DELACRUZ Lypoma/lesion procedure start time at 0818./MIKE DELACRUZ 05/17/23 chart opened for charge review per Emerita Bansal RN. 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 - Primary Scrub - Primary Time In [...] REMOVAL(.) REMOVAL(.) REMOVAL(.) Comments Last Modified By: Robert MCKEON, Evelin Jones [...] Applicable) PreOp Antibiotic No Time Out Deppen VINCE, Eunice Johnston, Given Participants Robert MCKEON, Evelin N, Mel Sweeney Sparks, Micala E, NILL MD, Jori Huber CST, Echo Ortez [...] Surgeon KEMAR MOLINA, Eduardo REINOSO MD, Eduardo Zurita Start 05/14/23 08:00:00 05/14/23 08:00:00 Stop 05/14/23 08:52:00 05/14/23 08:52:00 Anesthesia Type General General Surgical Service General General Wound Class 2 - Clean-Contaminated 1 - Clean Last Modified By: Evelin Jones RN, RN, BSN, Justus 05/14/23 08:52:23 05/17/23 12:22:19 General Case Data [...] Post-Care Text: (more content not included)... Normal [facility] Operative Reporton Operative Report SURGERY DATE: 05/14/2023 PREOPERATIVE DIAGNOSIS: [...] Area in good condition. Eduardo Reinoso M.D. FACS lr Dictated: 05/14/2023 [id number] Transcribed: 05/14/2023 cc:Josh Bach M.D. [facility] Comment on above: Result Comment: Elec tronically Signed By: KEMAR MOLINA, Eduardo Galloway\Date and Time Signed: 05/16/23 20:29 EST Progress [...] list: All Problems Prostatitis / SNOMED CT 99734812 / Confirmed Screening for malignant neoplasm of colon / SNOMED CT 081622370 / Confirmed Obesity / SNOMED CT 6007338256 / Confirmed Neoplasm of uncertain behavior of skin of thigh / SNOMED CT 481668694 / Confirmed Lipoma of left shoulder / SNOMED CT 524392905 / Confirmed LBBB (left bundle branch block) / SNOMED CT 678545718 / Confirmed Impotence / SNOMED CT 3714675579 / Confirmed Hypertension / SNOMED CT 6277872828 / Confirmed History of pulmonary embolism / SNOMED CT 538064844 / Confirmed Glycosuria / SNOMED CT 93800982 / Confirmed Former smoker / SNOMED CT 00257206 / Confirmed Chronic congestive heart failure / SNOMED CT 726942159 / Confirmed Cardiomyopathy / SNOMED CT 626201728 / Confirmed BMI 33.0-33.9,adult / SNOMED CT 428354241 / Confirmed BPH with urinary obstruction / SNOMED CT 4500980816 / Confirmed Atrial fibrillation / SNOMED CT 96589238 / Confirmed Anxiety / SNOMED CT 47254625 / Confirmed Canceled: Elevated PSA / SNOMED CT 1875246737 Canceled: Pyuria / SNOMED CT 1653214 Canceled: Hesitancy / SNOMED CT 185899273 Canceled: 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 Repair of right inguinal hernia (7316643689). Social History Social & Psychosocial Habits Alcohol 04/14/2023 Use: Current Type: Beer Frequency: 1-2 times per week Substance Abuse 04/14/2023 Risk Assessment: Denies Substance Abuse Tobacco 04/14/2023 Tobacco Use: Former smoker, quit more Smokeless tobacco use: Never Type: Cigarettes Tobacco use per day: 1 Started at age: 18.0 Years Stopped at age: 33 Years Comment: Quit 2008 - 08/23/2019 12:18 - Jerel Robbins MA Physical Examination Airway: Mallampati classification: II (soft palate, fauces, uvula visible). Respiratory: adequate air exchange. Cardiovascular: Regular rhythm. Plan [place] [employer] Anesthesiologists (ASA) physical status classification: Class II. Anesthetic Preoperative Plan: Anesthesia General. Normal [facility] Comment on above: Result Comment: Elec tronically Signed By: Ricardo Madrid Jr, DO\.br\Date and Time Signed: 05/16/23 07:08 EST Progress Note-Physician Patient: SUJATA REYNA Age: 47 years Sex: Male : 1975 Associated Diagnoses: None Author: Ricardo Madrid Jr, DO Postoperative Information Postoperative disposition: Postoperative disposition: To PACU. Optimetrix number: Optimetrix number [phone]. Anesthetic utilized: General. Health Status Allergies: Allergic [...] meets criteria ( To home ). Normal [facility] Comment on above: Result Comment: [...] Performed by Eduardo REINOSO MD. Referred by Johs Bach MD. Current history and physical Documented [...] place. Impression and Plan Diagnosis: Colon, diverticulosis (SIP30-QA K57.30, Working, Medical). Course: Progressing as expected. Recommendations: Repeat colonoscopy:: In 5 years. Follow-up:: Await biopsy results in 3-5 days. Diet:: Regular diet. Medication resumption:: Continue current medications. Return to activities:: After 24 hours. Education and Follow-up: Counseled: Family. [facility] Comment on above: Other Comment: Angelita glasgow Attachment - attachment storage system not supported [id number] Can be viewed in source system Missing Attachment - attachment storage system not supported [id number] Can be viewed in source system Missing Attachment - attachment storage system not supported 1466621 Can be viewed in source system Missing Attachment - attachment storage system not supported 0096002 Can be viewed in source system Consent for Treatmenton 04-28 Consent for Treatment [id number] IFF [facility] Discharge Instructionson Discharge Instructions SUJATA REYNA :1975 [...] instructed Remove Dressing On 1 Pharmacy Information [facility] Discharge Instructions Discharge Instructions Previously Scheduled Follow-Up Appointments Wednesday 8:00 AM EST With: SIDDHARTHA MOLINA, Benton Zurita Where: [facility] Emergency Department Comment on above: Result Comment: Elec tronically Signed By: Andrea MCKEON, Roseanna\.mikey\Date and Time Signed: 05/14/23 09:03 EST Inpatient Patient Summaryon 05-14-2023 Inpatient Patient Summary [address] [address] [facility] Clinical Discharge Instructions PERSON INFORMATION Name: SUJATA REYNA PHYSICIANS Admitting Physician: Eduardo REINOSO MD Attending Physician: Eduardo REINOSO MD PCP: Mikala MOLINA, Josh Discharge Diagnosis: Encounter for colorectal cancer screening; Encounter for screening for malignant neoplasm of rectum; Lipoma of back; Neoplasm of uncertain behavior of skin of thigh Comment: PATIENT EDUCATION INFORMATION Instructions: Medication Leaflets: Follow up: With: Address: When: Eduardo REINOSO [address] [place] [address], [address], [employer] [address] [address] Business (1) Within 7 to 10 days Type Location Start Finish State [facility] Office Visit [facility] 09/03/2023 8:00 AM 09/03/2023 8:15 AM Confirmed [...] Mouth every day. Refills: 3. Comment: Normal [facility] Main OR PACU I Recordon 04-28 Main OR PACU I Record PACU Phase I Document Type FT Summary Primary Physician: Eduardo REINOSO MD Finalized Date/Time: 05/14/23 09:48:44 Pt. Name: SUJATA REYNA Bridgette /Sex: 1975 Male Med Rec #: [id number] Physician: Eduardo REINOSO MD Financial #: [id number] Pt. Type: O Room/Bed: / Admit/Disch: 05/14/23 [...] Outcomes Met? Yes Last Modified By: Roseanna Mendez RN 05/14/23 09:25:06 Post-Care Text: The patient [...] 05/14/23 09:25 Roseanna Mendez RN 05/14/23 09:48 Normal [facility] Main OR Preoperative Recordo n 05-14-2023 Main OR Preoperative Record Holding Area Document Type FT Summary Primary Physician: Eduardo REINOSO MD Finalized Date/Time: 05/14/23 06:58:55 Pt. Name: SUJATA REYNA Bridgette Castillo/Sex: 1975 Male Med Rec #: [id number] Physician: Eduardo REINOSO MD Financial #: [id number] Pt. Type: O Room/Bed: / Admit/Disch: 05/14/23 [...] By: Sophia Membreno RN 05/14/23 06:58 Normal [facility] Monitor Recordon 05-14-2023 Monitor Record [id number] TIFF Normal [facility] Outpatient Surgery Discharge Instructionon 05-14-2023 Outpatient Surgery Discharge Instruction [place] [id number] Patient Discharge Instructions PERSON INFORMATION Name: SUJATA [...] Address: When: Eduardo Umana, [address], [facility] [address] [place] [address] Business (1) Within 7 to 10 days Type Location Start Finish State [facility] Office Visit [facility] [place] 09/03/2023 8:00 AM 09/03/2023 8:15 AM Confirmed [facility] You may receive a survey from [employer] asking you to rate your care experience. Your feedback is important and will help us understand what we do well and how we can improve the quality of care we provide to you, your loved ones and our community. It?s an honor to serve you. Thank you for choosing [facility] HERE ARE THE MEDICATION [...] 3. PATIENT EDUCATION INFORMATION Instructions: Medication Leaflets: Rohan [facility] Patient Education - Texton 1 07-14-2022 Patient [...] unsweetened, w/added ascorbic acid 1 cup 0.5 [place] 1 cup 0.7 Vegetables Cooked Green beans 1 cup 4.0 Carrots 1/2 cup sliced 2.3 Peas 1 cup 8.8 Potato (baked, with skin) 1 medium potato 3.8 Raw [place] (with peel) 1 cucumber 1.5 Lettuce 1 [...] 8.7 Peanuts 1/2 cup 7.9 Chart from [facility] 2013. SEEK IMMEDIATE MEDICAL CARE IF: You [...] Available at http://www.nal.usda.gov /fnic/foodcomp/search/. Information adapted from: [employer]? Patient Information ?2009 [employer] [facility]. [facility] 2012 http://www.datapine /contents/diverticular- jblaefw-ysdjbj-zdg-basi cs [facility] Orders Onlyon 05-11-2023 Orders Only [id number] Sujata Reyna 1975 [facility] Provider Department [place] 05/11/2023 MARIE DAVIS ALEJANDRINA Sanju . No family history on file [facility] Insurance Correspondenceon 07-06-2022 Insurance Correspondence [id number] TIFF [facility] Telemedicineon 05-04-2023 Telemedicine [id number] Sujata Reyna 1975 [facility] Provider Department Center 05/04/2023 RISHABH DIAMOND [facility] No family history on file Level of Service:46337 ND PHYS/QHP TELEPHONE EVALUATION 11-20 MIN [facility] Office Visiton 04-23-2023 Follow-up visit [id number] Sujata Reyna 1975 [facility] Provider Department Center 04/23/2023 MARIE DAVIS [facility] [place] [facility] No family history on file Level of Service:06546 ND OFFICE/OUTPATIENT ESTABLISHED MOD MDM 30-39 MIN [facility] Consent for Procedure/Surger yon 04-15-2023 Consent for Procedure/Surgery [id number] IFF [facility] Ambulatory Visit Summaryon 1 Ambulatory Visit Summary SUJATA REYNA :1975 Visit Date:04/14/2023 Ambulatory Visit Instructions Your Care Team Attending Physician - KEMAR MOLINA, Eduardo Zurita Primary Care Physician - Mikala MOLINA, Josh Referring Physician - Josh Bach MD This [...] Appointments Wednesday 9:00 AM EST With: Where: [facility] Surgical Services Wednesday 8:00 AM EST With: Benton CARL MD Where: [facility] Emergency Department Office Visiton 03-23-2023 Follow-up visit [id number] Sujata Reyna 1975 [facility] Provider Department [place] 03/23/2023 SamRISHABH MEDINA [facility] No family history on file Level of Service:64101 ND OFFICE/OUTPATIENT ESTABLISHED MOD MDM 30-39 MIN [facility] Physician Referralon 023 Physician Referral [id number] :127 [facility] Office Visiton 11-13-2022 Follow-up visit [id number] Sujata Reyna 1975 [facility] Provider Department [place] 11/13/2022 MARIE DAVIS [facility] No family history on file Level of Service:84989 ND OFFICE/OUTPATIENT ESTABLISHED MOD MDM 30-39 MIN [facility] HPon 11-05-2022 H&P reviewed. The patient was examined and there are no changes to the H&P. [facility] NURSNOTEon 11-05-2022 NURSNOTE RN educated pt on d/ c instructions. RN encouraged pt to voice any questions or concerns. Pt verbalizes no questions or concerns at this time. Pt was wheeled off of unit with all of belongings. [facility] HPon 10-20-2022 [facility] Electrophysiology Consult Note [facility] Clinic Reason for visit: NSVT s/p EP study without ablation HPI: Patient for follow-up s/p EP study/01/17. 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 Post ablation patient continued to have symptoms of palpitations, and an event monitor placed due to being admitted at [facility] for chest discomfort and acute PE. 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 [...] was not done. [facility], he was admitted to [facility] for chest pain. He was found to have an acute PE and was started on Eliquis. BLE doppler showed small nonocclusive right femoral vein thrombus. He also noted that he had also traveled down to [place] via car the few days prior to episode. Since his admission at [facility] last week, he has been feeling better. [...] 2.25 m??? Meds: (more content not included)... Normal [facility] Office Visiton 10-20-2022 Follow-up visit [id number] Sujata Reyna Bridgette 1975 M Date Provider Department Center 10/20/2022 Benjamin-MARIE KINNEY [facility] No family history on file Level of Service:09589 ND OFFICE/OUTPATIENT ESTABLISHED MOD MDM 30-39 MIN Reason for Visit and Comments: Follow-up [862280] Fatigue [46] Results [95] - 30 day monitor post EP procedure. [facility] HPon 10-02-2022 HP H&P reviewed. The patient was examined and there are no changes to the H&P. [facility] MRI ABDOMEN WO W CONon 09-28 MRI [...] by: TRIPP CAMPO Date: 2022-09-28 08:56 Normal [facility] HPon 09-25-2022 [facility] Electrophysiology Consult Note Date of Telehealth Visit: 09/25/22 The patient was notified that using 3rd green party telecommunication application (e.g., [employer]) is not HIPPA compliant and may carry some privacy risks. Yes The visit was conducted eyih-mg-ayej with the use of audio and video [...] was not done. [facility], he was admitted to [facility] for chest pain. He was found to have an acute PE and was started on Eliquis. BLE doppler showed small nonocclusive right femoral vein thrombus. He also noted that he had also traveled down to [place] via car the few days prior to episode. Since his admission at [facility] last week, he has been feeling better. [...] 10 mg Ta (more content not included)... Normal [facility] Orders Onlyon 09-25-2022 Orders Only [id number] Sujata Reyna Bridgette 1975 Provider Department Center 09/25/2022 ISA LOO [facility] Sanju . No family history on file Normal [facility] Telemedicineon 09-25-2022 Telemedicine [id number] Sujata Reyna Bridgette 1975 Provider Department Center 09/25/2022 RISHABH DIAMOND [facility] No family history on file Level of Service:19501 ND PHYS/QHP TELEPHONE EVALUATION 21-30 MIN Normal [facility] XR FOREIGN BODY EYEon 2022 XR FOREIGN BODY EYE EXAMINATION: XR FORE IGN BODY EYE HISTORY: Foreign body in eye COMPARISON: No relevant comparison available. FINDINGS: ORBITS: Negative for a metallic foreign body. OTHER: Negative. IMPRESSION: No metallic foreign body in the orbits Electronically authenticated by: TERESSA BRIDGES Date: 2022-09-25 07:59 Normal [facility] Follow-Upon 09-14-2022 Follow-Up [id number] Sujata Reyna Bridgette 1975 Provider Department Center 09/14/2022 JUSTUS KEY [facility] No family history on file Level of Service:73361 ND OFFICE/OUTPATIENT ESTABLISHED MOD MDM 30-39 MIN Reason for Visit and Comments: Hospital Follow-up [832] - Pt states that he was [facility] for an Ablation, tacky cardia , had some clots in right lower lung,also had echo completed Normal [facility] CBC AUTO DIFFon 09-12-2022 BASO # 0.0 103/ul Normal 0.0-0.1 [facility] Comment on above: Performed By: #### H STROPN, TSH, BNP, BMP #### [facility] [address] [address] [address] Ivan Seo Basophils/100 WBC (Bld) 0.3 % Normal 0.2-2.0 [facility] Comment on above: Performed By: #### H STROPN, TSH, BNP, BMP #### [facility] [address] [address] [address] Ivan Seo EO # 0.0 103/ul Normal 0.0-0.7 [facility] Comment on above: Performed By: #### H STROPN, TSH, BNP, BMP #### [facility] [address] [address] [address] Ivan Seo Eosinophils/100 WBC (Bld) 0.3 % Critically low 0.9-7.0 [facility] Comment on above: Performed By: #### H STROPN, TSH, BNP, BMP #### [facility] [address] [place] [address] Dr. Ivan Seo Erythrocyte distribution width (RBC) [Ratio] 12.7 % Normal 11.0-15.0 [facility] Comment on above: Performed By: #### H STROPN, TSH, BNP, BMP #### [facility] [address] [place] [address] Dr. Ivan Seo Hematocrit (Bld) [Volume fraction] 32.9 % Critically low 42.0-54.0 [facility] Comment on above: Performed By: #### H STROPN, TSH, BNP, BMP #### [facility] [address] [place] [address] Dr. Ivan Seo Hemoglobin (Bld) [Mass/Vol] 11.5 g/dL Critically low 14.0-18.0 [facility] Comment on above: Performed By: #### H STROPN, TSH, BNP, BMP #### [facility] [address] [place] [address] Dr. Ivan Seo IG # 0.13 10e3/ul Critically high 0.00-0.03 [place] Comment on above: Performed By: #### H STROPN, TSH, BNP, BMP #### [facility] [address] [place] [address] Dr. Ivan Seo IG % 1.0 % Critically high 0.0-0.5 [facility] Comment on above: Performed By: #### H STROPN, TSH, BNP, BMP #### [facility] [address] [place] [address] Dr. Ivan Seo LYMPH # 2.1 103/ul Normal 1.2-3.8 [facility] Comment on above: Performed By: #### H STROPN, TSH, BNP, BMP #### [facility] [address] [place] [address] Dr. Ivan Seo Lymphocytes/100 WBC (Bld) 15.6 % Critically low 20.5-60.0 [facility] Comment on above: Performed By: #### H STROPN, TSH, BNP, BMP #### [facility] [address] [place] [address] Dr. Ivan Seo MANUAL DIFF REQ NO Normal [facility] Comment on above: Performed By: #### H STROPN, TSH, BNP, BMP #### [facility] [address] [place] [address] Dr. Ivan Seo MCH (RBC) [Entitic mass] 31.3 pg Normal 25.9-34.0 [facility] Comment on above: Performed By: #### H STROPN, TSH, BNP, BMP #### [facility] [address] [place] [address] Dr. Ivan Seo MCHC (RBC) [Mass/Vol] 35.0 g/dL Normal 29.9-35.2 [facility] Comment on above: Performed By: #### H STROPN, TSH, BNP, BMP #### [facility] [address] [place] [address] Dr. Ivan Seo MCV (RBC) [Entitic vol] 89.4 fL Normal 80.0-94.0 [facility] Comment on above: Performed By: #### H STROPN, TSH, BNP, BMP #### [facility] [address] [place] [address] Dr. Ivan Seo MONO # 1.2 103/ul Critically high 0.3-0.8 [facility] Comment on above: Performed By: #### H STROPN, TSH, BNP, BMP #### [facility] [address] [address] [address] Ivan Seo Monocytes/100 WBC (Bld) 9.1 % Normal 1.7-12.0 [facility] Comment on above: Performed By: #### H STROPN, TSH, BNP, BMP #### [facility] [address] [place] [address] Dr. Ivan Seo NEUT # 9.9 103/ul Critically high 1.4-6.5 [facility] Comment on above: Performed By: #### H STROPN, TSH, BNP, BMP #### [facility] [address] [address] [address] Ivan Seo Neutrophils/100 WBC (Bld) 73.7 % Normal 43.0-75.0 [facility] Comment on above: Performed By: #### H STROPN, TSH, BNP, BMP #### [facility] [address] [place] [address] Dr. Ivan Seo Platelet mean volume (Bld) [Entitic vol] 8.9 fL Critically low 9.5-13.5 [facility] Comment on above: Performed By: #### H STROPN, TSH, BNP, BMP #### [facility] [address] [place] [address] Dr. Ivan Seo PLT 264 103/ul Normal 150-450 [facility] Comment on above: Performed By: #### H STROPN, TSH, BNP, BMP #### [facility] [address] [place] [address] Dr. Ivan Seo RBC 3.68 106/ul Critically low 4.70-6.10 [facility] Comment on above: Performed By: #### H STROPN, TSH, BNP, BMP #### [facility] [address] [address] [address] Ivan Seo WBC 13.4 103/ul Critically high 4.0-11.0 [facility] Comment on above: Performed By: #### H STROPN, TSH, BNP, BMP #### [facility] [address] [place] [address] Dr. Ivan Seo PROF 14(COMP METB)on 023 Albumin [Mass/Vol] 3.1 g/dL Critically low 3.4-5.0 [facility] Comment on above: Performed By: #### H STROPN, TSH, BNP, BMP #### [facility] [address] [place] [address] Dr. Ivan Seo Albumin/Globulin [Mass ratio] 0.8 {ratio} Normal [facility] Comment on above: Performed By: #### H STROPN, TSH, BNP, BMP #### [facility] [address] [place] [address] Dr. Ivan Seo ALP [Catalytic activity/Vol] 81 U/L Normal 46-116 [facility] Comment on above: Performed By: #### H STROPN, TSH, BNP, BMP #### [facility] [address] [place] [address] Dr. Ivan Seo ALT [Catalytic activity/Vol] 43 U/L Normal 16-63 [facility] Comment on above: Performed By: #### H STROPN, TSH, BNP, BMP #### [facility] [address] [place] [address] Dr. Ivan Seo Anion gap [Moles/Vol] 11.7 mmol/L Normal [facility] Comment on above: Performed By: #### H STROPN, TSH, BNP, BMP #### [facility] [address] [place] [address] Dr. Ivan Seo AST [Catalytic activity/Vol] 18 U/L Normal 15-37 [facility] Comment on above: Performed By: #### H STROPN, TSH, BNP, BMP #### [facility] [address] [place] [address] Dr. Ivan Seo Bilirubin [Mass/Vol] 0.5 mg/dL Normal 0.2-1.0 [facility] Comment on above: Performed By: #### H STROPN, TSH, BNP, BMP #### [facility] [address] [place] [address] Dr. Ivan Seo Calcium [Mass/Vol] 8.9 mg/dL Normal 8.5-10.1 [facility] Comment on above: Performed By: #### H STROPN, TSH, BNP, BMP #### [facility] [address] [place] [address] Dr. Ivna Seo Chloride [Moles/Vol] 106 mmol/L Normal 98-107 [facility] Comment on above: Performed By: #### H STROPN, TSH, BNP, BMP #### [facility] [address] [place] [address] Dr. Ivan Seo CO2 [Moles/Vol] 27.7 mmol/L Normal 21.0-32.0 [facility] Comment on above: Performed By: #### H STROPN, TSH, BNP, BMP #### [facility] [address] [place] [address] Dr. Ivan Seo Creatinine [Mass/Vol] 0.75 mg/dL Normal 0.70-1.30 [facility] Comment on above: Performed By: #### H STROPN, TSH, BNP, BMP #### [facility] [address] [place] [address] Dr. Ivan Seo EGFR-AF MALIAN >60 Normal >=60 [facility] Comment on above: Performed By: #### H STROPN, TSH, BNP, BMP #### [facility] [address] [place] [address] Dr. Ivan Seo EGFR-NON AF MALIAN >60 Normal >=60 [facility] Comment on above: Performed By: #### H STROPN, TSH, BNP, BMP #### [facility] [address] [place] [address] Dr. Ivan Seo Globulin (S) [Mass/Vol] 3.8 g/dL Normal [facility] Comment on above: Performed By: #### H STROPN, TSH, BNP, BMP #### [facility] [address] [place] [address] Dr. Ivan Seo Glucose [Mass/Vol] 100 mg/dL Normal 74-106 [facility] Comment on above: Performed By: #### H STROPN, TSH, BNP, BMP #### [facility] [address] [place] [address] Dr. Ivan Seo Potassium [Moles/Vol] 3.4 mmol/L Critically low 3.5-5.1 [facility] Comment on above: Performed By: #### H STROPN, TSH, BNP, BMP #### [facility] [address] [place] [address] Dr. Ivan Seo Protein [Mass/Vol] 6.9 g/dL Normal 6.4-8.2 [facility] Comment on above: Performed By: #### H STROPN, TSH, BNP, BMP #### [facility] [address] [place] [address] Dr. Ivan Seo Sodium [Moles/Vol] 142 mmol/L Normal 136-145 [facility] Comment on above: Performed By: #### H STROPN, TSH, BNP, BMP #### [facility] [address] [place] [address] Dr. Ivan Seo Urea nitrogen [Mass/Vol] 16.0 mg/dL Normal 7.0-18.0 [facility] Comment on above: Performed By: #### H STROPN, TSH, BNP, BMP #### [facility] [address] [place] [address] Dr. Ivan Seo Urea nitrogen/Creatinine [Mass ratio] 21.3 mg/mg Normal [facility] Comment on above: Performed By: #### H STROPN, TSH, BNP, BMP #### [facility] [address] [place] [address] Dr. Ivan Seo BNPon 09-11-2022 Natriuretic peptide B (Bld) [Mass/Vol] 194.0 pg/mL Normal <=450.0 [facility] Comment on above: Performed By: #### B [employer] #### [facility] [address] [place] [address] Dr. Ivan Seo CBC AUTO DIFFon 09-11-2022 BASO # 0.0 103/ul Normal 0.0-0.1 [facility] Comment on above: Performed By: #### M G, BMP #### [facility] [address] [place] [address] Dr. Ivan Seo Basophils/100 WBC (Bld) 0.2 % Normal 0.2-2.0 [facility] Comment on above: Performed By: #### M G, BMP #### [facility] [address] [place] [address] Dr. Ivan Seo EO # 0.0 103/ul Normal 0.0-0.7 [facility] Comment on above: Performed By: #### M G, BMP #### [facility] [address] [place] [address] Dr. Ivan Seo Eosinophils/100 WBC (Bld) 0.0 % Critically low 0.9-7.0 [facility] Comment on above: Performed By: #### M G, BMP #### [facility] [address] [place] [address] Dr. Ivan Seo Erythrocyte distribution width (RBC) [Ratio] 12.7 % Normal 11.0-15.0 [facility] Comment on above: Performed By: #### M G, BMP #### [facility] [address] [place] [address] Dr. Ivan Seo Hematocrit (Bld) [Volume fraction] 34.5 % Critically low 42.0-54.0 [facility] Comment on above: Performed By: #### M G, BMP #### [facility] [address] [place] [address] Dr. Ivan Seo Hemoglobin (Bld) [Mass/Vol] 11.8 g/dL Critically low 14.0-18.0 [facility] Comment on above: Performed By: #### M G, BMP #### [facility] [address] [place] [address] Dr. Ivan Seo IG # 0.18 10e3/ul Critically high 0.00-0.03 [place] Comment on above: Performed By: #### M G, BMP #### [facility] [address] [place] [address] Dr. Ivan Seo IG % 1.4 % Critically high 0.0-0.5 [facility] Comment on above: Performed By: #### M G, BMP #### [facility] [address] [place] [address] Dr. Ivan Seo LYMPH # 1.4 103/ul Normal 1.2-3.8 [facility] Comment on above: Performed By: #### M G, BMP #### [facility] [address] [place] [address] Dr. Ivan Seo Lymphocytes/100 WBC (Bld) 10.2 % Critically low 20.5-60.0 [facility] Comment on above: Performed By: #### M G, BMP #### [facility] [address] [place] [address] Dr. Ivan Seo MANUAL DIFF REQ NO Normal [facility] Comment on above: Performed By: #### M G, BMP #### [facility] [address] [place] [address] Dr. Ivan Seo MCH (RBC) [Entitic mass] 30.8 pg Normal 25.9-34.0 [facility] Comment on above: Performed By: #### M G, BMP #### [facility] [address] [place] [address] Dr. Ivan Seo MCHC (RBC) [Mass/Vol] 34.2 g/dL Normal 29.9-35.2 [facility] Comment on above: Performed By: #### M G, BMP #### [facility] [address] [place] [address] Dr. Ivan Seo MCV (RBC) [Entitic vol] 90.1 fL Normal 80.0-94.0 [facility] Comment on above: Performed By: #### M G, BMP #### [facility] [address] [place] [address] Dr. Ivan Seo MONO # 0.5 103/ul Normal 0.3-0.8 [facility] Comment on above: Performed By: #### M G, BMP #### [facility] [address] [place] [address] Dr. Ivan Seo Monocytes/100 WBC (Bld) 3.7 % Normal 1.7-12.0 [facility] Comment on above: Performed By: #### M G, BMP #### [facility] [address] [address] [address] Ivan Seo NEUT # 11.2 103/ul Critically high 1.4-6.5 [facility] Comment on above: Performed By: #### M G, BMP #### [facility] [address] [place] [address] Dr. Ivan Seo Neutrophils/100 WBC (Bld) 84.5 % Critically high 43.0-75.0 [facility] Comment on above: Performed By: #### M G, BMP #### [facility] [address] [address] [address] Ivan Seo Platelet mean volume (Bld) [Entitic vol] 9.2 fL Critically low 9.5-13.5 [facility] Comment on above: Performed By: #### M G, BMP #### [facility] [address] [place] [address] Dr. Ivan Seo PLT 276 103/ul Normal 150-450 [facility] Comment on above: Performed By: #### M G, BMP #### [facility] [address] [place] [address] Dr. Ivan Seo RBC 3.83 106/ul Critically low 4.70-6.10 [facility] Comment on above: Performed By: #### M G, BMP #### [facility] [address] [place] [address] Dr. Ivan Seo WBC 13.3 103/ul Critically high 4.0-11.0 [facility] Comment on above: Performed By: #### M G, BMP #### [facility] [address] [place] [address] Dr. Ivan Seo CULTURE SPUTUMon 09-11-2022 CULTURE SPUTUM Culture Observations : NORMAL RESPIRATORY SAUNDRA. Normal [facility] Comment on above: Performed By: #### H STROPN, TSH, BNP, BMP #### [facility] [address] [place] [address] Dr. Ivan Seo CULTURE URINEon 09-11-2022 CULTURE URINE Culture Observations : NO GROWTH. Normal [facility] Comment on above: Performed By: #### M G, BMP #### [facility] [address] [address] [address] Ivan Seo ECHOCARDIO M/2D COMPLETEon 0 09-11-2022 ECHOCARDIO M/2D COMPLETE Patient: SUJATA REYNA Exam Date: 09/11/2022 : 1975 Gender:M Ordering : DR JOSH BACH . Admission #: [id number] Family : Order #: [id number] CLICK HERE TO VIEW EXAM ECHOCARDIOGRAM REPORT [...] Pressure: 45.31 ml, 45.31 ml Dictated by: Puaj Colon M.D. on 09/11/2022 at 14:33 Approved by: Puja Colon M.D. on 09/11/2022 at 14:35 Normal [facility] POINT OF CARE GLUCOSEon - Glucose [Mass/Vol] 122 mg/dL Critically high 74-106 [facility] Comment on above: Performed By: #### H STROPN, TSH, BNP, BMP #### [facility] [address] [place] [address] Dr. Ivan Seo Glucose [Mass/Vol] 161 mg/dL Critically high 74-106 [facility] Comment on above: Performed By: #### M G, BMP #### [facility] [address] [place] [address] Dr. Ivan Seo Glucose [Mass/Vol] 123 mg/dL Critically high 74-106 [facility] Comment on above: Performed By: #### H STROPN, TSH, BNP, BMP #### [facility] [address] [place] [address] Dr. Ivan Seo PROF 14(COMP METB)on 023 Albumin [Mass/Vol] 3.5 g/dL Normal 3.4-5.0 [facility] Comment on above: Performed By: #### H STROPN, TSH, BNP, BMP #### [facility] [address] [address] [address] Ivan Seo Albumin/Globulin [Mass ratio] 0.9 {ratio} Normal [facility] Comment on above: Performed By: #### H STROPN, TSH, BNP, BMP #### [facility] [address] [place] [address] Dr. Ivan Seo ALP [Catalytic activity/Vol] 106 U/L Normal 46-116 [facility] Comment on above: Performed By: #### H STROPN, TSH, BNP, BMP #### [facility] [address] [place] [address] Dr. Ivan Seo ALT [Catalytic activity/Vol] 37 U/L Normal 16-63 [facility] Comment on above: Performed By: #### H STROPN, TSH, BNP, BMP #### [facility] [address] [place] [address] Dr. Ivan Seo Anion gap [Moles/Vol] 11.5 mmol/L Normal [facility] Comment on above: Performed By: #### H STROPN, TSH, BNP, BMP #### [facility] [address] [place] [address] Dr. Ivan Seo AST [Catalytic activity/Vol] 15 U/L Normal 15-37 [facility] Comment on above: Performed By: #### H STROPN, TSH, BNP, BMP #### [facility] [address] [place] [address] Dr. Ivan Seo Bilirubin [Mass/Vol] 0.5 mg/dL Normal 0.2-1.0 [facility] Comment on above: Performed By: #### H STROPN, TSH, BNP, BMP #### [facility] [address] [place] [address] Dr. Ivan Seo Calcium [Mass/Vol] 9.1 mg/dL Normal 8.5-10.1 [facility] Comment on above: Performed By: #### H STROPN, TSH, BNP, BMP #### [facility] [address] [place] [address] Dr. Ivan Seo Chloride [Moles/Vol] 104 mmol/L Normal 98-107 [facility] Comment on above: Performed By: #### H STROPN, TSH, BNP, BMP #### [facility] [address] [place] [address] Dr. Ivan Seo CO2 [Moles/Vol] 27.1 mmol/L Normal 21.0-32.0 [facility] Comment on above: Performed By: #### H STROPN, TSH, BNP, BMP #### [facility] [address] [place] [address] Dr. Ivan Seo Creatinine [Mass/Vol] 0.78 mg/dL Normal 0.70-1.30 [facility] Comment on above: Performed By: #### H STROPN, TSH, BNP, BMP #### [facility] [address] [place] [address] Dr. Ivan Seo EGFR-AF MALIAN >60 Normal >=60 [facility] Comment on above: Performed By: #### H STROPN, TSH, BNP, BMP #### [facility] [address] [place] [address] Dr. Ivan Seo EGFR-NON AF MALIAN >60 Normal >=60 [facility] Comment on above: Performed By: #### H STROPN, TSH, BNP, BMP #### [facility] [address] [place] [address] Dr. Ivan Seo Globulin (S) [Mass/Vol] 4.0 g/dL Normal [facility] Comment on above: Performed By: #### H STROPN, TSH, BNP, BMP #### [facility] [address] [place] [address] Dr. Ivan Seo Glucose [Mass/Vol] 176 mg/dL Critically high 74-106 [facility] Comment on above: Performed By: #### H STROPN, TSH, BNP, BMP #### [facility] [address] [place] [address] Dr. Ivan Seo Potassium [Moles/Vol] 3.6 mmol/L Normal 3.5-5.1 [facility] Comment on above: Performed By: #### H STROPN, TSH, BNP, BMP #### [facility] [address] [place] [address] Dr. Ivan Seo Protein [Mass/Vol] 7.5 g/dL Normal 6.4-8.2 [facility] Comment on above: Performed By: #### H STROPN, TSH, BNP, BMP #### [facility] [address] [place] [address] Dr. Ivan Seo Sodium [Moles/Vol] 139 mmol/L Normal 136-145 [facility] Comment on above: Performed By: #### H STROPN, TSH, BNP, BMP #### [facility] [address] [place] [address] Dr. Ivan Seo Urea nitrogen [Mass/Vol] 11.0 mg/dL Normal 7.0-18.0 [facility] Comment on above: Performed By: #### H STROPN, TSH, BNP, BMP #### [facility] [address] [place] [address] Dr. Ivan Seo Urea nitrogen/Creatinine [Mass ratio] 14.1 mg/mg Normal [facility] Comment on above: Performed By: #### H STROPN, TSH, BNP, BMP #### [facility] [address] [place] [address] Dr. Ivan Seo PTT HEPARIN MONITORon 2022 aPTT Coag (Bld) [Time] 47.8 s Normal 39.5-54.2 [facility] Comment on above: Performed By: #### H STROPN, TSH, BNP, BMP #### [facility] [address] [address] [address] Ivan Seo SPUTUM GRAM STAINon 09-12-19 COMMENTS Normal [facility] Comment on above: Performed By: #### H STROPN, TSH, BNP, BMP #### [facility] [address] [address] [address] Ivan Seo DIPHTHEROIDS Normal [facility] Comment on above: Performed By: #### H STROPN, TSH, BNP, BMP #### [facility] [address] [address] [address] Ivan Seo EPITHELIALS <25 Normal [facility] Comment on above: Performed By: #### H STROPN, TSH, BNP, BMP #### [facility] [address] [address] [address] Ivan Seo FUNGAL ELEMENTS Normal [facility] Comment on above: Performed By: #### H STROPN, TSH, BNP, BMP #### [facility] [address] [address] [address] Ivan Seo GRAM NEG BACILLI Normal [facility] Comment on above: Performed By: #### H STROPN, TSH, BNP, BMP #### [facility] [address] [address] [address] Ivan TIERNEY NEG DIPPLOCOCCI Normal [facility] Comment on above: Performed By: #### H STROPN, TSH, BNP, BMP #### [facility] [address] [address] [address] Ivan Seo GRAM POS BACILLI Normal [facility] Comment on above: Performed By: #### H STROPN, TSH, BNP, BMP #### [facility] [address] [address] [address] Ivan Seo GRAM POSITIVE COCCI MODERATE Normal [facility] Comment on above: Performed By: #### H STROPN, TSH, BNP, BMP #### [facility] [address] [address] [address] Ivan Seo WBC (Bld) [#/Vol] 10*3/uL Normal [facility] Comment on above: Performed By: #### H STROPN, TSH, BNP, BMP #### [facility] [address] [place] [address] Dr. Ivan Seo TROPONIN, HIGH SENSITIVITYon 09-11-2022 HSTROP 9.2 pg/mL Normal 4.0-76.1 [facility] Comment on above: Result Comment: CUT- OFF POINTS HAVE BEEN ESTABLISHED BASED ON THE FOURTH UNIVERSAL DEFINITIONS OF MYOCARDIAL INFARCTION. THE UPPER REFERENCE LIMIT (URL) OF TROPONIN, DEFINED THE 99TH PERCENTILE OF cTnI DISTRIBUTION IN A REFERENCE POPULATION, HAS BEEN CONFIRMED THE DECISION THRESHOLD FOR AR DIAGNOSIS. Performed By: #### H STROPN, TSH, BNP, BMP #### [facility] [address] [place] [address] Dr. Ivan Seo UA RANDOM W/MICROSCOPICon BACTERIA NONE SEEN Normal NONE SEEN [facility] Comment on above: Performed By: #### H STROPN, TSH, BNP, BMP #### [facility] [address] [place] [address] Dr. Ivan Seo Bilirubin Ql (U) Negative Normal NEGATIVE [facility] Comment on above: Performed By: #### H STROPN, TSH, BNP, BMP #### [facility] [address] [place] [address] Dr. Ivan Seo CAST NONE SEEN Normal NONE SEEN [facility] Comment on above: Performed By: #### H STROPN, TSH, BNP, BMP #### [facility] [address] [place] [address] Dr. Ivan Seo Clarity (U) CLEAR Normal CLEAR [facility] Comment on above: Performed By: #### H STROPN, TSH, BNP, BMP #### [facility] [address] [place] [address] Dr. Ivan Seo Color (U) LT. YELLOW Normal YELLOW [facility] Comment on above: Performed By: #### H STROPN, TSH, BNP, BMP #### [facility] [address] [place] [address] Dr. Ivan Seo Crystals LM Nom (Urine sed) NONE SEEN Normal NONE SEEN [facility] Comment on above: Performed By: #### H STROPN, TSH, BNP, BMP #### [facility] [address] [address] [address] Ivan Seo Epithelial cells LM Ql (Urine sed) NONE SEEN Normal NONE SEEN /RARE [facility] Comment on above: Performed By: #### H STROPN, TSH, BNP, BMP #### [facility] [address] [address] [address] Ivan Seo Glucose Ql (U) 1000 mg/dl Abnormal NEGATIVE [facility] Comment on above: Performed By: #### H STROPN, TSH, BNP, BMP #### [facility] [address] [address] [address] Ivan Seo Hemoglobin Ql (U) Negative Normal NEGATIVE [facility] Comment on above: Performed By: #### H STROPN, TSH, BNP, BMP #### [facility] [address] [place] [address] Dr. Ivan Seo Ketones Ql (U) Negative Normal NEGATIVE [facility] Comment on above: Performed By: #### H STROPN, TSH, BNP, BMP #### [facility] [address] [address] [address] Ivan Seo LEUKOCYTES Negative Normal NEGATIVE [facility] Comment on above: Performed By: #### H STROPN, TSH, BNP, BMP #### [facility] [address] [address] [address] Ivan Seo MUCOUS NONE SEEN Normal NONE SEEN [facility] Comment on above: Performed By: #### H STROPN, TSH, BNP, BMP #### [facility] [address] [address] [address] Ivan Seo Nitrite Ql (U) Negative Normal NEGATIVE [facility] Comment on above: Performed By: #### H STROPN, TSH, BNP, BMP #### [facility] [address] [address] [address] Ivan Seo pH (U) 6.0 [pH] Normal 5-9 [facility] Comment on above: Performed By: #### H STROPN, TSH, BNP, BMP #### [facility] [address] [address] [address] Ivan Seo RBC NONE SEEN Abnormal 0-2 [facility] Comment on above: Performed By: #### H STROPN, TSH, BNP, BMP #### [facility] [address] [address] [address] Ivan Seo SPEC GRAVITY 1.020 Normal 1.005-<=1.025 The [facility] Comment on above: Performed By: #### H STROPN, TSH, BNP, BMP #### [facility] [address] [address] [address] Ivan Seo UA PROTEIN Negative Normal NEGATIVE/ TRACE [facility] Comment on above: Performed By: #### H STROPN, TSH, BNP, BMP #### [facility] [address] [place] [address] Dr. Ivan Seo Urobilinogen Qn (U) 0.2 {Teto'U}/dL Normal 0.2 - 1. 0 [facility] Comment on above: Performed By: #### H STROPN, TSH, BNP, BMP #### [facility] [address] [place] [address] Dr. Ivan Seo WBC NONE SEEN Normal NONE SEEN [facility] Comment on above: Performed By: #### H STROPN, TSH, BNP, BMP #### [facility] [address] [place] [address] Dr. Ivan Seo US JORDEN DOP LEG [...] NORI MCALLISTER Date: 2022-09-11 07:52 Normal [facility] BNPon 09-10-2022 Natriuretic peptide B (Bld) [Mass/Vol] 138.0 pg/mL Normal <=450.0 [facility] Comment on above: Performed By: #### H STROPN, TSH, BNP, BMP #### [facility] [address] [address] [address] Ivan Seo CBC W MANUAL DIFFon 09-11-19 23 ATYPICAL LYMPH # Normal [facility] Comment on above: Performed By: #### H STROPN, TSH, BNP, BMP #### [facility] [address] [address] [address] Ivan Seo ATYPICAL LYMPH % Normal [facility] Comment on above: Performed By: #### H STROPN, TSH, BNP, BMP #### [facility] [address] [address] [address] Ivan Seo BAND # 0.0 103/ul Normal 0.0-0.3 [facility] Comment on above: Performed By: #### H STROPN, TSH, BNP, BMP #### [facility] [address] [address] [address] Ivan Seo BAND % 0 % Normal 0-5 [facility] Comment on above: Performed By: #### H STROPN, TSH, BNP, BMP #### [facility] [address] [address] [address] Ivan Seo BASOM # 0.00 103/ul Normal 0.00-0.10 [facility] Comment on above: Performed By: #### H STROPN, TSH, BNP, BMP #### [facility] [address] [address] [address] Ivan Seo BASOM % 0.0 % Critically low 0.2-2.0 [facility] Comment on above: Performed By: #### H STROPN, TSH, BNP, BMP #### [facility] [address] [place] [address] Dr. Ivan Seo BLAST # Normal [facility] Comment on above: Performed By: #### H STROPN, TSH, BNP, BMP #### [facility] [address] [place] [address] Dr. Ivan Seo BLAST % Normal [facility] Comment on above: Performed By: #### H STROPN, TSH, BNP, BMP #### [facility] [address] [address] [address] Ivan Seo CORRECTED WBC Normal 4.0-11.0 [facility] Comment on above: Performed By: #### H STROPN, TSH, BNP, BMP #### [facility] [address] [place] [address] Dr. Ivan Seo EOS # 0.31 103/ul Normal 0.00-0.70 [facility] Comment on above: Performed By: #### H STROPN, TSH, BNP, BMP #### [facility] [address] [place] [address] Dr. Ivan Seo EOS% 2.0 % Normal 0.9-7.0 [facility] Comment on above: Performed By: #### H STROPN, TSH, BNP, BMP #### [facility] [address] [place] [address] Dr. Ivan Seo HCT 35.0 % Critically low 42.0-54.0 [facility] Comment on above: Performed By: #### H STROPN, TSH, BNP, BMP #### [facility] [address] [place] [address] Dr. Ivan Seo HGB 11.9 g/dl Critically low 14.0-18.0 [facility] Comment on above: Performed By: #### H STROPN, TSH, BNP, BMP #### [facility] [address] [place] [address] Dr. Ivan Seo LYMPHM # 0.92 103/ul Critically low 1.20-3.80 [facility] Comment on above: Performed By: #### H STROPN, TSH, BNP, BMP #### [facility] [address] [address] [address] Ivan Seo LYMPHM% 6.0 % Critically low 20.5-60.0 [facility] Comment on above: Performed By: #### H STROPN, TSH, BNP, BMP #### [facility] [address] [address] [address] Ivan Seo MCH 30.7 pg Normal 25.9-34.0 [facility] Comment on above: Performed By: #### H STROPN, TSH, BNP, BMP #### [facility] [address] [address] [address] Ivan Seo MCHC 34.0 g/dl Normal 29.9-35.2 [facility] Comment on above: Performed By: #### H STROPN, TSH, BNP, BMP #### [facility] [address] [place] [address] Dr. Ivan Seo MCV 90.2 fL Normal 80.0-94.0 [facility] Comment on above: Performed By: #### H STROPN, TSH, BNP, BMP #### [facility] [address] [place] [address] Dr. Ivan Seo METAMYELOCYTE # Normal The [facility] Comment on above: Performed By: #### H STROPN, TSH, BNP, BMP #### [facility] [address] [place] [address] Dr. Ivan Seo METAMYELOCYTE % Normal [facility] Comment on above: Performed By: #### H STROPN, TSH, BNP, BMP #### [facility] [address] [place] [address] Dr. Ivan Seo MONOM# 1.38 103/ul Critically high 0.30-0.80 [facility] Comment on above: Performed By: #### H STROPN, TSH, BNP, BMP #### [facility] [address] [place] [address] Dr. Ivan Seo MONOM% 9.0 % Normal 1.7-12.0 [facility] Comment on above: Performed By: #### H STROPN, TSH, BNP, BMP #### [facility] [address] [address] [address] Ivan Seo MPV 9.2 fL Critically low 9.5-13.5 [facility] Comment on above: Performed By: #### H STROPN, TSH, BNP, BMP #### [facility] [address] [address] [address] Ivan Seo MYELOCYTE # Normal [facility] Comment on above: Performed By: #### H STROPN, TSH, BNP, BMP #### [facility] [address] [address] [address] Ivan Seo MYELOCYTE % Normal [facility] Comment on above: Performed By: #### H STROPN, TSH, BNP, BMP #### [facility] [address] [address] [address] Ivan Seo NRBC Normal [facility] Comment on above: Performed By: #### H STROPN, TSH, BNP, BMP #### [facility] [address] [address] [address] Ivan Seo PLT 275 103/ul Normal 150-450 [facility] Comment on above: Performed By: #### H STROPN, TSH, BNP, BMP #### [facility] [address] [address] [address] Ivan Seo RBC 3.88 106/ul Critically low 4.70-6.10 [facility] Comment on above: Performed By: #### H STROPN, TSH, BNP, BMP #### [facility] [address] [address] [address] Ivan Seo RDW 12.9 % Normal 11.0-15.0 [facility] Comment on above: Performed By: #### H STROPN, TSH, BNP, BMP #### [facility] [address] [address] [address] Ivan Seo SEG # 12.70 103/ul Critically high 1.40-6.50 [place] Comment on above: Performed By: #### H STROPN, TSH, BNP, BMP #### [facility] [address] [address] [address] Ivan Seo SEG % 83.0 % Critically high 43.0-75.0 [facility] Comment on above: Performed By: #### H STROPN, TSH, BNP, BMP #### [facility] [address] [place], [place] [address] Dr. Ivan Seo WBC 15.3 103/ul Critically high 4.0-11.0 [facility] Comment on above: Performed By: #### H STROPN, TSH, BNP, BMP #### [facility] [address] [place], [place] [address] Dr. Ivan Seo CTA CHEST WO W [...] Critical results were called by Dr. Jean Conde MD to Jazmine WILSON At 09/10/2022 7:57 PM EDT. Electronically authenticated by: JEAN CONDE Date: 2022-09-10 20:03 Normal [facility] Covid-19 PCR (CVDTBH)on 08-26 SARS-CoV-2 (COVID-19) RNA THONG+probe Ql (Unsp spec) Not detected Normal NOT DETECTED [facility] Comment on above: Result Comment: When diagnostic [...] for this test is supported by the [place] of Health and Human Service's declaration that [...] #### H STROPN, TSH, BNP, BMP #### [facility] [address] [place], [place] [address] Dr. Iavn Seo PROF 14(COMP METB)on 023 Albumin [Mass/Vol] 3.8 g/dL Normal 3.4-5.0 [facility] Comment on above: Performed By: #### H STROPN, TSH, BNP, BMP #### [facility] [address] [address] [address] Ivan Seo Albumin/Globulin [Mass ratio] 1.0 {ratio} Normal [facility] Comment on above: Performed By: #### H STROPN, TSH, BNP, BMP #### [facility] [address] [address] [address] Ivan Seo ALP [Catalytic activity/Vol] 110 U/L Normal 46-116 [facility] Comment on above: Performed By: #### H STROPN, TSH, BNP, BMP #### [facility] [address] [place] [address] Dr. Ivan Seo ALT [Catalytic activity/Vol] 42 U/L Normal 16-63 [facility] Comment on above: Performed By: #### H STROPN, TSH, BNP, BMP #### [facility] [address] [place] [address] Dr. Ivan Seo Anion gap [Moles/Vol] 12.9 mmol/L Normal [facility] Comment on above: Performed By: #### H STROPN, TSH, BNP, BMP #### [facility] [address] [place] [address] Dr. Ivan Seo AST [Catalytic activity/Vol] 15 U/L Normal 15-37 [facility] Comment on above: Performed By: #### H STROPN, TSH, BNP, BMP #### [facility] [address] [place] [address] Dr. Ivan Seo Bilirubin [Mass/Vol] 0.8 mg/dL Normal 0.2-1.0 [facility] Comment on above: Performed By: #### H STROPN, TSH, BNP, BMP #### [facility] [address] [place] [address] Dr. Ivan Seo Calcium [Mass/Vol] 9.2 mg/dL Normal 8.5-10.1 [facility] Comment on above: Performed By: #### H STROPN, TSH, BNP, BMP #### [facility] [address] [place] [address] Dr. Ivan Seo Chloride [Moles/Vol] 103 mmol/L Normal 98-107 [facility] Comment on above: Performed By: #### H STROPN, TSH, BNP, BMP #### [facility] [address] [address] [address] Ivan Seo CO2 [Moles/Vol] 26.6 mmol/L Normal 21.0-32.0 [facility] Comment on above: Performed By: #### H STROPN, TSH, BNP, BMP #### [facility] [address] [address] [address] Ivan Seo Creatinine [Mass/Vol] 0.84 mg/dL Normal 0.70-1.30 [facility] Comment on above: Performed By: #### H STROPN, TSH, BNP, BMP #### [facility] [address] [address] [address] Ivan Seo EGFR-AF MALIAN >60 Normal >=60 [facility] Comment on above: Performed By: #### H STROPN, TSH, BNP, BMP #### [facility] [address] [place] [address] Dr. Ivan Seo EGFR-NON AF MALIAN >60 Normal >=60 [facility] Comment on above: Performed By: #### H STROPN, TSH, BNP, BMP #### [facility] [address] [address] [address] Ivan Seo Globulin (S) [Mass/Vol] 3.9 g/dL Normal [facility] Comment on above: Performed By: #### H STROPN, TSH, BNP, BMP #### [facility] [address] [address] [address] Ivan Seo Glucose [Mass/Vol] 111 mg/dL Critically high 74-106 [facility] Comment on above: Performed By: #### H STROPN, TSH, BNP, BMP #### [facility] [address] [address] [address] Ivan Seo Potassium [Moles/Vol] 3.5 mmol/L Normal 3.5-5.1 [facility] Comment on above: Performed By: #### H STROPN, TSH, BNP, BMP #### [facility] [address] [address] [address] Ivan Seo Protein [Mass/Vol] 7.7 g/dL Normal 6.4-8.2 [facility] Comment on above: Performed By: #### H STROPN, TSH, BNP, BMP #### [facility] [address] [address] [address] Ivan Seo Sodium [Moles/Vol] 139 mmol/L Normal 136-145 [facility] Comment on above: Performed By: #### H STROPN, TSH, BNP, BMP #### [facility] [address] [address] [address] Ivan Seo Urea nitrogen [Mass/Vol] 11.0 mg/dL Normal 7.0-18.0 [facility] Comment on above: Performed By: #### H STROPN, TSH, BNP, BMP #### [facility] [address] [place] [address] Dr. Ivan Seo Urea nitrogen/Creatinine [Mass ratio] 13.1 mg/mg Normal [facility] Comment on above: Performed By: #### H STROPN, TSH, BNP, BMP #### [facility] [address] [place] [address] Dr. Ivan Seo PROTIMEon 09-10-2022 INR Coag (PPP) [Relative time] 1.08 {INR} Normal [facility] Comment on above: Performed By: #### H STROPN, TSH, BNP, BMP #### [facility] [address] [place] [address] Dr. Ivan Seo INR GUIDELINES SEE BELOW Normal [facility] Comment on above: Result Comment: ROGELIO RED INR: 2.0 - 3.0 CONDITIONS NOT LISTED BELOW 2.5 - 3.5 FOR PROSTHETIC HEART VALVE REPLACEMENT 2.5 - 3.5 RECURRENT THROMBOSIS Performed By: #### H STROPN, TSH, BNP, BMP #### [facility] [address] [place] [address] Dr. Ivan Seo PT Coag (PPP) [Time] 11.4 s Normal 9.0-11.6 [facility] Comment on above: Performed By: #### H STROPN, TSH, BNP, BMP #### [facility] [address] [address] [address] Ivan Seo PTTon 09-10-2022 aPTT Coag (Bld) [Time] 29.9 s Normal 22.3-36.2 [facility] Comment on above: Performed By: #### H STROPN, TSH, BNP, BMP #### [facility] [address] [address] [address] Ivan Seo TROPONIN, HIGH SENSITIVITYon 09-10-2022 HSTROP 10.9 pg/mL Normal 4.0-76.1 [facility] Comment on above: Result Comment: CUT- OFF POINTS HAVE BEEN ESTABLISHED BASED ON THE FOURTH UNIVERSAL DEFINITIONS OF MYOCARDIAL INFARCTION. THE UPPER REFERENCE LIMIT (URL) OF TROPONIN, DEFINED THE 99TH PERCENTILE OF cTnI DISTRIBUTION IN A REFERENCE POPULATION, HAS BEEN CONFIRMED THE DECISION THRESHOLD FOR AR DIAGNOSIS. Performed By: #### H STROPN, TSH, BNP, BMP #### [facility] [address] [address] [address] Ivan Seo Ambulatory Visit Summaryon 0 09-04-2022 Ambulatory Visit Summary SUJATA REYNA :1975 Visit Date:09/04/2022 Ambulatory Visit Instructions Your Diagnosis BPH with urinary obstruction Impotence Glycosuria Tests Performed Urnls Dip Stick Auto w/o Microscopy POC 79982 Your Care Team Attending Physician - SIDDHARTHA MOLINA, Benton [place] Primary Care Physician - Josh Bach [...] Follow-Up Appointments Wednesday 8:00 AM EST With: SIDDHARTAH MOLINA, [place]enton [place] Where: [facility] Covid-19 PCR (CVDTBH)on 08-26 SARS-CoV-2 (COVID-19) RNA THONG+probe Ql (Unsp spec) Not detected Normal NOT DETECTED [facility] Comment on above: Result Comment: When diagnostic [...] for this test is supported by the [place] of Health and Human Service's declaration that [...] #### H STROPN, TSH, BNP, BMP #### [facility] [address] [address] [address] Ivan Seo Patient Educationon 09-05-19 23 [...] Follow these instructions at home: ? Take [id number] and prescription medicines only as told by [...] You d (more content not included)... Normal [facility] Urology Office/Clinic Noteon 09-04-2022 Urology Office/Clinic Note [...] continue medication management, refill sent today to [facility] in [place]. Follow up in 1 year w/ PSA. [...] Information SIDDHARTHA MOLINA, [place], [address] [place] [address]- Additional Instructions: 1 year w/ PSA Patient Education Benign Prostatic Hyperplasia I, Julia Mcmahon, personally scribed for Dr. Carl on 09/04/2022 09:17:51. . Documentation recorded by the scribe, Julia Mcmahon, accurately reflects the services(s) I performed and [...] Protein Urine Dipstick: Trace (09/04/22 08:22:00) Specific [place] Urine Dipstick: 1.015 (09/04/22 08:22:00) Urine Appearance Urine Dipstick: Clear (09/04/22 (more content not included)... Normal [facility] Comment on above: Result Comment: Elec tronically Signed By: Benton CARL MD\.br\Date and Time Signed: 09/04/22 09:21 EST\.br\Electronically Co-Signed By: Julia Mcmahon\.br\Date and Time Co-Signed: 09/04/22 09:17 EST 36on [...] succinate 200mg once a day and Entresto / bid. Please advise. Thanks. Normal [facility] BASIC METABOLIC PANELon 03-0 Anion gap [Moles/Vol] 11 mmol/L Normal 7-20 [facility] Comment on above: Performed By: #### L [id number] ####[facility] ([facility])[address] [place] [address] Calcium [Mass/Vol] 9.4 mg/dL Normal 8.6-10.3 [facility] Comment on above: Performed By: #### L [id number] ####[facility] ([facility])[address] [place] [address] Chloride [Moles/Vol] 102 mmol/L Normal 98-107 [facility] Comment on above: Performed By: #### L [id number] ####[facility] ([facility])[address] [place] [address] CO2 [Moles/Vol] 27 mmol/L Normal 21-31 [facility] Comment on above: Performed By: #### L [id number] ####[facility] ([facility])[address] [place] [address] Creatinine [Mass/Vol] 0.83 mg/dL Normal 0.70-1.30 [facility] Comment on above: Performed By: #### L [id number] ####[facility] ([facility])[address] [place] [address] GLOMERULAR FILTRATION RATE ML/MIN/1.73 SQ M.PREDICTED 108.0 mL/min/1.73m*2 Normal >60.0 [facility] Comment on above: Result Comment: The [facility]???s estimated glomerular filtration rate (eGFR) will no [...] of individuals. Performed By: #### L [id number] ####[facility] ([facility])[address] [place] [address] Glucose [Mass/Vol] 87 mg/dL Normal 70-100 [facility] Comment on above: Performed By: #### L [id number] ####[facility] ([facility])[address] [place] [address] Potassium [Moles/Vol] 3.7 mmol/L Normal 3.5-5.1 [facility] Comment on above: Performed By: #### L [id number] ####[facility] ([facility])[address] [place] [address] Sodium [Moles/Vol] 136 mmol/L Normal 136-145 [facility] Comment on above: Performed By: #### L [id number] ####[facility] ([facility])[address] [place] [address] Urea nitrogen [Mass/Vol] 13 mg/dL Normal 7-25 [facility] Comment on above: Performed By: #### L [id number] ####[facility] [place] [address] UREA NITROGEN/CREATININE (MASS RATIO) IN SER/PLAS 15.7 Normal [facility] Comment on above: Performed By: #### L [id number] ####[facility] [place] [address] CBCon 09-02-2022 Erythrocyte distribution width (RBC) [Ratio] 12.9 % Normal 11.5-15.0 [facility] Comment on above: Performed By: #### L [id number] #### [facility] ([facility]) [address] [place] [address] ERYTHROCYTE MEAN CORPUSCULAR HEMOGLOBIN CONCENTRATION (G/DL) BY AUTOMATED 34.8 g/dL Normal 32.0-35.0 [facility] Comment on above: Performed By: #### L [id number] #### [facility] ([facility]) [address] [place] [address] Hematocrit (Bld) [Volume fraction] 42.3 % Normal 39.0-55.0 [facility] Comment on above: Performed By: #### L [id number] #### [facility] [address] [place] [address] Hemoglobin (Bld) [Mass/Vol] 14.7 g/dL Normal 13.0-17.0 [facility] Comment on above: Performed By: #### L [id number] #### [facility] [address] [place] [address] MCH (RBC) [Entitic mass] 30.7 pg Normal 27.0-33.0 [facility] Comment on above: Performed By: #### L [id number] #### [facility] ([facility]) [address] [place] [address] MCV (RBC) [Entitic vol] 88.3 fL Normal 82.0-98.0 [facility] Comment on above: Performed By: #### L [id number] #### [facility] ([facility]) [address] [place] [address] PLATELETS (10*3/UL) IN BLOOD AUTOMATED COUNT 238 10*3/uL Normal 150-400 [facility] Comment on above: Performed By: #### L [id number] #### [facility] ([facility]) [address] [place] [address] RBC (Bld) [#/Vol] 4.79 10*6/uL Normal 4.20-5.70 [facility] Comment on above: Performed By: #### L [id number] #### [facility] ([facility]) [address] [place] [address] WBC (Bld) [#/Vol] 7.90 10*3/uL Normal 4.00-10.60 [facility] Comment on above: Performed By: #### L [id number] #### [facility] ([facility]) [address] [place] [address] Orders Onlyon 09-02-2022 Orders Only [id number] Sujata Reyna 1975 M Date Provider Department [place] 09/02/2022 ISA LOO [facility] No family history on file [facility] [place] 30on 2022 30 Problem: Pain - Adul [...] clinical goals for the shift include VSS [facility] [place] NURSNOTEon 2022 NURSNOTE CV NCDR CATHPCI V5 COLLECTION FORM [facility] [place] B-TYPE NATRIURETIC PEPTIDEon 08-31-2022 Natriuretic peptide B (Bld) [Mass/Vol] 49 pg/mL Normal 0-100 [facility] Comment on above: Performed By: #### L [id number] ####[facility] ([facility])[address] [place] [address] HPon 08-31-2022 HP H&P reviewed. The patient was examined and there are no changes to the H&P. Normal [facility] NURSNOTEon 08-31-2022 NURSNOTE MS notified report ing nurse that patient had a heart rate of 177 with PSVT. Patient stated he felt flutters in his chest twice while sitting on the side of the bed. Doctors orders will continue to be followed. Normal [facility] 30on 08-30-2022 30 The patient is Moderately Stable - Low risk of patient condition declining or worsening The patient's goals for the shift include comfort The clinical goals for the shift include VSS Problem: Pain - Adult Goal: Verbalizes/displays adequate comfort level or baseline comfort level Outcome: Progressing Problem: Safety - Adult Goal: Free from fall injury Outcome: Progressing Normal [facility] 30 The patient is Moderately Stable - [...] and maintained or improved Outcome: Progressing Normal [facility] 30 The patient is Moderately Stable - [...] and behaviors that affect risk of falls [place] fall precautions as indicated by assessment Educate [...] and maintained or improved Outcome: Progressing Normal [facility] 30on 08-29-2022 30 The patient is Moderately [...] and maintained or improved Outcome: Progressing Normal [facility] CONSULTon 08-29-2022 CONSULT --- Attestation signed by [...] sweating. He was evaluated in ED at [facility]- was noted on ECG to have LBBB [...] w/o reversible ischemia. [facility] and coronary angiography. Past [...] mg oral q6h PRN 650 mg at 08/29/22920 aspirin 81 mg oral BID 81 mg at 08/29/22 09 atorvastatin 40 mg oral Daily 40 mg at 08/29/22921 heparin (porcine) 5,000 Units subcutaneous q12h VIRI [...] General: Norm (more content not included)... Normal [facility] HPon 08-29-2022 HP --- Attestation signed by [...] sweating. He was evaluated in ED at [facility]- was noted on ECG to have LBBB [...] w/o reversible ischemia. [facility] and coronary angiography. Past [...] mg oral q6h PRN 650 mg at 08/29/22920 aspirin 81 mg oral BID 81 mg at 08/29/22921 atorvastatin 40 mg oral Daily 40 mg at 08/29/22921 heparin (porcine) 5,000 Units subcutaneous q12h VIRI [...] General: Norm (more content not included)... Normal [facility] NURSNOTEon 08-29-2022 NURSNOTE Patient complaining of chest pain, cardiology notified. Cardiology also notified of patient's telemetry changes this AM. States will see him and let you know. RN will continue to monitor. Normal [facility] 30on 08-28-2022 30 The patient is Moderately [...] and maintained or improved Outcome: Progressing Normal [facility] 30 The patient is Moderately Stable - Low risk of patient condition declining or worsening The patient's goals for the shift include no pain The clinical goals for the shift include VSS Normal [facility] APTTon 08-28-2022 ACTIVATED PARTIAL THROMBOPLASTIN TIME IN PPP BY COAGULATION ASSAY 26.7 Seconds Normal 25.0-35.0 [facility] Comment on above: Performed By: #### L [id number] #### [facility] (Thirsty) [address] [place] [address] B-TYPE NATRIURETIC PEPTIDEon 08-28-2022 Natriuretic peptide B (Bld) [Mass/Vol] 23 pg/mL Normal 0-100 [facility] Comment on above: Performed By: #### L [id number] #### [facility] (Thirsty) [address] [place] [address] CBC WITH AUTO DIFFERENTIALon 08-28-2022 Basophils (Bld) [#/Vol] 0.05 10*3/uL Normal 0.00-0.20 [facility] Comment on above: Performed By: #### L [id number] ####[facility] [place] [address] Basophils/100 WBC (Bld) 0.7 % Normal 0.0-1.0 [facility] Comment on above: Performed By: #### L [id number] ####[facility] [place] [address] Eosinophils (Bld) [#/Vol] 0.15 10*3/uL Normal 0.00-0.50 [facility] Comment on above: Performed By: #### L [id number] ####[facility] ([facility])[address] [place] [address] Eosinophils/100 WBC (Bld) 2.0 % Normal 0.0-6.0 [facility] Comment on above: Performed By: #### L [id number] ####[facility] ([facility])[address] [place] [address] Erythrocyte distribution width (RBC) [Ratio] 12.8 % Normal 11.5-15.0 [facility] Comment on above: Performed By: #### L [id number] ####[facility] ([facility] [place] [address] ERYTHROCYTE MEAN CORPUSCULAR HEMOGLOBIN CONCENTRATION (G/DL) BY AUTOMATED 33.5 g/dL Normal 32.0-35.0 [facility] Comment on above: Performed By: #### L [id number] ####[facility] ([facility] [place] [address] Hematocrit (Bld) [Volume fraction] 41.8 % Normal 39.0-55.0 [facility] Comment on above: Performed By: #### L [id number] ####[facility] (BEAKER)[address] [place] [address] Hemoglobin (Bld) [Mass/Vol] 14.0 g/dL Normal 13.0-17.0 [facility] Comment on above: Performed By: #### L [id number] ####[facility] (BEAKER)[address] [place] [address] Immature granulocytes (Bld) [#/Vol] 0.04 10*3/uL Normal 0.00-0.20 [facility] Comment on above: Performed By: #### L [id number] ####[facility] (BEAKER)[address] [place] [address] Immature granulocytes/100 WBC (Bld) 0.5 % Normal 0.0-1.0 [facility] Comment on above: Performed By: #### L [id number] ####[facility] (BEAKER)[address] [place] [address] Lymphocytes (Bld) [#/Vol] 1.75 10*3/uL Normal 1.20-4.00 [facility] Comment on above: Performed By: #### L [id number] ####[facility] (BEAKER)[address] [place] [address] Lymphocytes/100 WBC (Bld) 23.1 % Normal 20.0-45.0 [facility] Comment on above: Performed By: #### L [id number] ####[facility] (BEAKER)[address] [place] [address] MCH (RBC) [Entitic mass] 30.5 pg Normal 27.0-33.0 [facility] Comment on above: Performed By: #### L [id number] ####[facility] (BEAKER)[address] [place] [address] MCV (RBC) [Entitic vol] 91.1 fL Normal 82.0-98.0 [facility] Comment on above: Performed By: #### L [id number] ####[facility] (BEAKER)[address] [place] [address] Monocytes (Bld) [#/Vol] 0.66 10*3/uL Normal 0.10-1.00 [facility] Comment on above: Performed By: #### L [id number] ####[facility] ([facility] [place] [address] Monocytes/100 WBC (Bld) 8.7 % Normal 5.0-12.0 [facility] Comment on above: Performed By: #### L [id number] ####[facility] ([facility])[address] [place] [address] Neutrophils (Bld) [#/Vol] 4.91 10*3/uL Normal 1.60-7.60 [facility] Comment on above: Performed By: #### L [id number] ####[facility] ([facility])[address] [place] [address] Neutrophils/100 WBC (Bld) 65.0 % Normal 40.0-72.0 [facility] Comment on above: Performed By: #### L [id number] ####[facility] ([facility])[address] [place] [address] NRBC (PER 100 WBCS) BY AUTOMATED COUNT 0.0 % Normal 0.0-0.0 [facility] Comment on above: Performed By: #### L [id number] ####[facility] ([facility])[address] [place] [address] PLATELETS (10*3/UL) IN BLOOD AUTOMATED COUNT 293 10*3/uL Normal 150-400 [facility] Comment on above: Performed By: #### L [id number] ####[facility] ([facility] [place] [address] RBC (Bld) [#/Vol] 4.59 10*6/uL Normal 4.20-5.70 [facility] Comment on above: Performed By: #### L [id number] ####[facility] (BEAKER)[address] [place] [address] WBC (Bld) [#/Vol] 7.56 10*3/uL Normal 4.00-10.60 [facility] Comment on above: Performed By: #### L [id number] ####[facility] ([facility])[address] [place] [address] COMPREHENSIVE METABOLIC PANE Massimo 08-28-2022 Albumin [Mass/Vol] 4.6 g/dL Normal 3.5-5.7 [facility] Comment on above: Performed By: #### L [id number] #### [facility] ([facility]) [address] [place] [address] ALP [Catalytic activity/Vol] 95 U/L Normal 34-104 [facility] Comment on above: Performed By: #### L [id number] #### [facility] ([facility]) [address] [place] [address] ALT [Catalytic activity/Vol] 75 U/L High 7-52 [facility] Comment on above: Performed By: #### L [id number] #### [facility] ([facility]) [address] [place] [address] Anion gap [Moles/Vol] 12 mmol/L Normal 7-20 [facility] Comment on above: Performed By: #### L [id number] #### [facility] ([facility]) [address] [place] [address] AST [Catalytic activity/Vol] 28 U/L Normal 13-39 [facility] Comment on above: Performed By: #### L [id number] #### [facility] ([facility]) [address] [place] [address] Bilirubin [Mass/Vol] 0.7 mg/dL Normal 0.3-1.0 [facility] Comment on above: Performed By: #### L [id number] #### [facility] ([facility]) [address] [place] [address] Calcium [Mass/Vol] 9.8 mg/dL Normal 8.6-10.3 [facility] Comment on above: Performed By: #### L [id number] #### [facility] ([facility]) [address] [place] [address] Chloride [Moles/Vol] 104 mmol/L Normal 98-107 [facility] Comment on above: Performed By: #### L [id number] #### [facility] ([facility]) [address] [place] [address] CO2 [Moles/Vol] 27 mmol/L Normal 21-31 [facility] Comment on above: Performed By: #### L [id number] #### [facility] ([facility]) [address] [place] [address] Creatinine [Mass/Vol] 0.82 mg/dL Normal 0.70-1.30 [facility] Comment on above: Performed By: #### L [id number] #### [facility] ([facility]) [address] [place] [address] GLOMERULAR FILTRATION RATE ML/MIN/1.73 SQ M.PREDICTED 109.0 mL/min/1.73m*2 Normal >60.0 [facility] Comment on above: Result Comment: [facility]???s estimated glomerular filtration rate (eGFR) will no [...] individuals. Performed By: #### L [id number] #### [facility] ([facility]) [address] [place] [address] Glucose [Mass/Vol] 77 mg/dL Normal 70-100 [facility] Comment on above: Performed By: #### L [id number] #### [facility] ([facility]) [address] [place] [address] Potassium [Moles/Vol] 3.7 mmol/L Normal 3.5-5.1 [facility] Comment on above: Performed By: #### L [id number] #### [facility] ([facility] [address] [place] [address] Protein [Mass/Vol] 7.9 g/dL Normal 6.0-8.3 [facility] Comment on above: Performed By: #### L [id number] #### [facility] ([facility]) [address] [place] [address] Sodium [Moles/Vol] 139 mmol/L Normal 136-145 [facility] Comment on above: Performed By: #### L [id number] #### [facility] ([facility]) [address] [place] [address] Urea nitrogen [Mass/Vol] 11 mg/dL Normal 7-25 [facility] Comment on above: Performed By: #### L [id number] #### [facility] ([facility]) [address] [place] [address] UREA NITROGEN/CREATININE (MASS RATIO) IN SER/PLAS 13.4 Normal [facility] Comment on above: Performed By: #### L [id number] #### [facility] ([facility]) [address] [place] [address] EDPROVon 08-28-2022 EDPROV HPI Chief Complaint Patient presents with Chest Pain Pt [facility] with [facility]/o generalized chest pain x2 weeks. Cardiology called on this pt. He had an abnormal stress test at [place] yesterday. Pt reports lightheadedness and mild SOB [...] changes to his bowel or bladder habits. [place] Coma Scale Score: 15 Patient History Past [...] [SF] ED Course User Index [SF] Tripp Donovan Diagnoses as of 08/28/22 1527 Unstable angina ([facility] Medical Decision Making Attestation: I performed a history and physical exam on this patient and discussed his or her management with the resident. I reviewed the resident's note and agree with the documented findings and plan of care with the following exceptions: Provider Statement ANEESH: Provider Statement [facility] (more content not included)... Normal [facility] MAGNESIUMon 08-28-2022 Magnesium [Mass/Vol] 2.1 mg/dL Normal 1.9-2.7 [facility] Comment on above: Performed By: #### L [id number] #### [facility] ([facility]) [address] [place] [address] Office Visiton 08-28-2022 Follow-up visit [id number] Sujata Reyna 1975 M Date Provider Department Center 08/28/2022 120-ISA RINCON [facility] No family history on file Level of Service:50076 [place] OFFICE/OUTPATIENT [facility] 60-74 MINUTES Reason for Visit and Comments: Establish Care [42] - Patient had a stress test 08/27/2022 and failed the test Normal [facility] PROTIME-INRon 08-28-2022 INR IN PPP BY COAGULATION ASSAY 1.08 Normal 0.90-1.10 [facility] Comment on above: Result Comment: ACCC P [...] 1995;[id number]. Performed By: #### L [id number] #### [facility] [address] [place] [address] PROTHROMBIN TIME (PT) IN PPP BY COAGULATION ASSAY 13.9 Seconds Normal 12.3-14.8 [facility] Comment on above: Performed By: #### L [id number] #### [facility] (Hithru) [address] [place] [address] TROPONIN Ion 08-28-2022 Troponin I.cardiac [Mass/Vol] 0.00 ng/mL Normal 0.00-0.04 [facility] Comment on above: Performed By: #### L [id number] #### [facility] ([facility]) [address] [place] [address] NM STRESS/REST MULTIon 08-27 NM STRESS/REST MULTI Patient: SUJATA REYNA Chary Exam Date: 08/27/2022 : 1975 Gender:M Ordering : DR JOSH BACH . Admission #: [id number] Family : Order #: [id number] CLICK HERE TO VIEW EXAM RADIOLOGY REPORT [...] anteroseptal. Basal inferoseptal. Basal inferior. Mid-inferoseptal. Mid-inferior. Paauilo. SIZE: Large (5 or more segments). SEVERITY: [...] MD on 08/27/2022 at 15:55 Normal [facility] CBC AUTO DIFFon 08-20-2022 BASO # 0.0 103/ul Normal 0.0-0.1 [facility] Comment on above: Performed By: #### M G, BMP #### [facility] [address] [address] [address] Ivan Seo Basophils/100 WBC (Bld) 0.5 % Normal 0.2-2.0 [facility] Comment on above: Performed By: #### M G, BMP #### [facility] [address] [place] [address] Dr. Ivan Seo EO # 0.2 103/ul Normal 0.0-0.7 [facility] Comment on above: Performed By: #### M G, BMP #### [facility] [address] [place] [address] Dr. Ivan Seo Eosinophils/100 WBC (Bld) 2.9 % Normal 0.9-7.0 [facility] Comment on above: Performed By: #### M G, BMP #### [facility] [address] [place] [address] Dr. Ivan Seo Erythrocyte distribution width (RBC) [Ratio] 13.0 % Normal 11.0-15.0 [facility] Comment on above: Performed By: #### M G, BMP #### [facility] [address] [place] [address] Dr. Ivan Seo Hematocrit (Bld) [Volume fraction] 41.4 % Critically low 42.0-54.0 [facility] Comment on above: Performed By: #### M G, BMP #### [facility] [address] [place] [address] Dr. Ivan Seo Hemoglobin (Bld) [Mass/Vol] 13.9 g/dL Critically low 14.0-18.0 [facility] Comment on above: Performed By: #### M G, BMP #### [facility] [address] [place] [address] Dr. Ivan Seo IG # 0.04 10e3/ul Critically high 0.00-0.03 [place] Comment on above: Performed By: #### M G, BMP #### [facility] [address] [place] [address] Dr. Ivan Seo IG % 0.5 % Normal 0.0-0.5 [facility] Comment on above: Performed By: #### M G, BMP #### [facility] [address] [place] [address] Dr. Ivan Seo LYMPH # 2.2 103/ul Normal 1.2-3.8 [facility] Comment on above: Performed By: #### M G, BMP #### [facility] [address] [place] [address] Dr. Ivan Seo Lymphocytes/100 WBC (Bld) 29.2 % Normal 20.5-60.0 [facility] Comment on above: Performed By: #### M G, BMP #### [facility] [address] [place] [address] Dr. Ivan Seo MANUAL DIFF REQ NO Normal [facility] Comment on above: Performed By: #### M G, BMP #### [facility] [address] [place] [address] Dr. Ivan Seo MCH (RBC) [Entitic mass] 30.5 pg Normal 25.9-34.0 [facility] Comment on above: Performed By: #### M G, BMP #### [facility] [address] [place] [address] Dr. Ivan Seo MCHC (RBC) [Mass/Vol] 33.6 g/dL Normal 29.9-35.2 [facility] Comment on above: Performed By: #### M G, BMP #### [facility] [address] [place] [address] Dr. Ivan Seo MCV (RBC) [Entitic vol] 91.0 fL Normal 80.0-94.0 [facility] Comment on above: Performed By: #### M G, BMP #### [facility] [address] [place] [address] Dr. Ivan Seo MONO # 0.8 103/ul Normal 0.3-0.8 [facility] Comment on above: Performed By: #### M G, BMP #### [facility] [address] [place] [address] Dr. Ivan Seo Monocytes/100 WBC (Bld) 10.5 % Normal 1.7-12.0 [facility] Comment on above: Performed By: #### M G, BMP #### [facility] [address] [place] [address] Dr. Ivan Seo NEUT # 4.3 103/ul Normal 1.4-6.5 [facility] Comment on above: Performed By: #### M G, BMP #### [facility] [address] [place] [address] Dr. Ivan Seo Neutrophils/100 WBC (Bld) 56.4 % Normal 43.0-75.0 [facility] Comment on above: Performed By: #### M G, BMP #### [facility] [address] [place] [address] Dr. Ivan Seo Platelet mean volume (Bld) [Entitic vol] 9.3 fL Critically low 9.5-13.5 [facility] Comment on above: Performed By: #### Neelima G, BMP #### [facility] [address] [place] [address] Dr. Ivan Seo PLT 264 103/ul Normal 150-450 [facility] Comment on above: Performed By: #### Neelima Zamora, BMP #### [facility] [address] [place] [address] Dr. Ivan Seo RBC 4.55 106/ul Critically low 4.70-6.10 [facility] Comment on above: Performed By: #### Neelima Zamora, BMP #### [facility] [address] [place] [address] Dr. Ivan Seo WBC 7.7 103/ul Normal 4.0-11.0 [facility] Comment on above: Performed By: #### Neelima Zamora, BMP #### [facility] [address] [place] [address] Dr. Ivan Seo MAGNESIUMon 08-20-2022 Magnesium [Mass/Vol] 2.0 mg/dL Normal 1.8-2.4 [facility] Comment on above: Performed By: #### Neelima G, BMP #### [facility] [address] [place] [address] Dr. Ivan Seo PROF CHEM 8 (BAS METB)on Anion gap [Moles/Vol] 12.9 mmol/L Normal [facility] Comment on above: Performed By: #### Neelima Zamora, BMP #### [facility] [address] [address] [address] Ivan Seo Calcium [Mass/Vol] 9.0 mg/dL Normal 8.5-10.1 [facility] Comment on above: Performed By: #### M G, BMP #### [facility] [address] [address] [address] Ivan Seo Chloride [Moles/Vol] 104 mmol/L Normal 98-107 [facility] Comment on above: Performed By: #### M G, BMP #### [facility] [address] [place] [address] Dr. Ivan Seo CO2 [Moles/Vol] 24.9 mmol/L Normal 21.0-32.0 [facility] Comment on above: Performed By: #### M G, BMP #### [facility] [address] [place] [address] Dr. Ivan Seo Creatinine [Mass/Vol] 0.82 mg/dL Normal 0.70-1.30 [facility] Comment on above: Performed By: #### M G, BMP #### [facility] [address] [place] [address] Dr. Ivan Seo EGFR-AF MALIAN >60 Normal >=60 [facility] Comment on above: Performed By: #### M G, BMP #### [facility] [address] [place] [address] Dr. Ivan Seo EGFR-NON AF MALIAN >60 Normal >=60 [facility] Comment on above: Performed By: #### M G, BMP #### [facility] [address] [place] [address] Dr. Ivan Seo Glucose [Mass/Vol] 94 mg/dL Normal 74-106 [facility] Comment on above: Performed By: #### M G, BMP #### [facility] [address] [place] [address] Dr. Ivan Seo Potassium [Moles/Vol] 3.8 mmol/L Normal 3.5-5.1 [facility] Comment on above: Performed By: #### M G, BMP #### [facility] [address] [address] [address] Ivan Seo Sodium [Moles/Vol] 138 mmol/L Normal 136-145 [facility] Comment on above: Performed By: #### M G, BMP #### [facility] [address] [address] [address] Ivan Seo Urea nitrogen [Mass/Vol] 11.0 mg/dL Normal 7.0-18.0 [facility] Comment on above: Performed By: #### M G, BMP #### [facility] [address] [address] [address] Ivan Seo Urea nitrogen/Creatinine [Mass ratio] 13.4 mg/mg Normal [facility] Comment on above: Performed By: #### M G, BMP #### [facility] [address] [place] [address] Dr. Ivan Seo TROPONIN, HIGH SENSITIVITYon 08-20-2022 HSTROP 8.3 pg/mL Normal 4.0-76.1 [facility] Comment on above: Result Comment: CUT- OFF POINTS HAVE BEEN ESTABLISHED BASED ON THE FOURTH UNIVERSAL DEFINITIONS OF MYOCARDIAL INFARCTION. THE UPPER REFERENCE LIMIT (URL) OF TROPONIN, DEFINED THE 99TH PERCENTILE OF cTnI DISTRIBUTION IN A REFERENCE POPULATION, HAS BEEN CONFIRMED THE DECISION THRESHOLD FOR AR DIAGNOSIS. Performed By: #### H STROPN, TSH, BNP, BMP #### [facility] [address] [place] [address] Dr. Ivan Seo CARDIAC EDWARDO 3-6on 3 CK [Catalytic activity/Vol] 110 U/L Normal 39-308 [facility] Comment on above: Performed By: #### H STROPN, TSH, BNP, BMP #### [facility] [address] [address] [address] Ivan Seo CK.MB [Mass/Vol] 0.77 ng/mL Normal <=3.60 [facility] Comment on above: Performed By: #### H STROPN, TSH, BNP, BMP #### [facility] [address] [address] [address] Ivan Seo HSTROP 6.1 pg/mL Normal 4.0-76.1 [facility] Comment on above: Result Comment: CUT- OFF POINTS HAVE BEEN ESTABLISHED BASED ON THE FOURTH UNIVERSAL DEFINITIONS OF MYOCARDIAL INFARCTION. THE UPPER REFERENCE LIMIT (URL) OF TROPONIN, DEFINED THE 99TH PERCENTILE OF cTnI DISTRIBUTION IN A REFERENCE POPULATION, HAS BEEN CONFIRMED THE DECISION THRESHOLD FOR AR DIAGNOSIS. Performed By: #### H STROPN, TSH, BNP, BMP #### [facility] [address] [place] [address] Dr. Ivan Seo CK [Catalytic activity/Vol] 113 U/L Normal 39-308 [facility] Comment on above: Performed By: #### H STROPN, TSH, BNP, BMP #### [facility] [address] [place] [address] Dr. Ivan Seo CK.MB [Mass/Vol] 0.62 ng/mL Normal <=3.60 [facility] Comment on above: Performed By: #### H STROPN, TSH, BNP, BMP #### [facility] [address] [place] [address] Dr. Ivan Seo HSTROP 7.4 pg/mL Normal 4.0-76.1 [facility] Comment on above: Result Comment: CUT- OFF POINTS HAVE BEEN ESTABLISHED BASED ON THE FOURTH UNIVERSAL DEFINITIONS OF MYOCARDIAL INFARCTION. THE UPPER REFERENCE LIMIT (URL) OF TROPONIN, DEFINED THE 99TH PERCENTILE OF cTnI DISTRIBUTION IN A REFERENCE POPULATION, HAS BEEN CONFIRMED THE DECISION THRESHOLD FOR AR DIAGNOSIS. Performed By: #### H STROPN, TSH, BNP, BMP #### [facility] [address] [place] [address] Dr. Ivan Seo CBC AUTO DIFFon 08-19-2022 BASO # 0.0 103/ul Normal 0.0-0.1 [facility] Comment on above: Performed By: #### H STROPN, TSH, BNP, BMP #### [facility] [address] [place] [address] Dr. Ivan Seo Basophils/100 WBC (Bld) 0.5 % Normal 0.2-2.0 [facility] Comment on above: Performed By: #### H STROPN, TSH, BNP, BMP #### [facility] [address] [place] [address] Dr. Ivan Seo EO # 0.2 103/ul Normal 0.0-0.7 [facility] Comment on above: Performed By: #### H STROPN, TSH, BNP, BMP #### [facility] [address] [place] [address] Dr. Ivan Seo Eosinophils/100 WBC (Bld) 2.9 % Normal 0.9-7.0 [facility] Comment on above: Performed By: #### H STROPN, TSH, BNP, BMP #### [facility] [address] [place] [address] Dr. Ivan Seo Erythrocyte distribution width (RBC) [Ratio] 12.7 % Normal 11.0-15.0 [facility] Comment on above: Performed By: #### H STROPN, TSH, BNP, BMP #### [facility] [address] [place] [address] Dr. Ivan Seo Hematocrit (Bld) [Volume fraction] 40.2 % Critically low 42.0-54.0 [facility] Comment on above: Performed By: #### H STROPN, TSH, BNP, BMP #### [facility] [address] [place] [address] Dr. Ivan Seo Hemoglobin (Bld) [Mass/Vol] 13.6 g/dL Critically low 14.0-18.0 [facility] Comment on above: Performed By: #### H STROPN, TSH, BNP, BMP #### [facility] [address] [place] [address] Dr. Ivan Seo IG # 0.06 10e3/ul Critically high 0.00-0.03 [place] Comment on above: Performed By: #### H STROPN, TSH, BNP, BMP #### [facility] [address] [place] [address] Dr. Ivan Seo IG % 0.8 % Critically high 0.0-0.5 [facility] Comment on above: Performed By: #### H STROPN, TSH, BNP, BMP #### [facility] [address] [place] [address] Dr. Ivan Seo LYMPH # 2.0 103/ul Normal 1.2-3.8 [facility] Comment on above: Performed By: #### H STROPN, TSH, BNP, BMP #### [facility] [address] [place] [address] Dr. Ivan Seo Lymphocytes/100 WBC (Bld) 26.9 % Normal 20.5-60.0 [facility] Comment on above: Performed By: #### H STROPN, TSH, BNP, BMP #### [facility] [address] [place] [address] Dr. Ivan Seo MANUAL DIFF REQ NO Normal [facility] Comment on above: Performed By: #### H STROPN, TSH, BNP, BMP #### [facility] [address] [place] [address] Dr. Ivan Seo MCH (RBC) [Entitic mass] 30.4 pg Normal 25.9-34.0 [facility] Comment on above: Performed By: #### H STROPN, TSH, BNP, BMP #### [facility] [address] [place] [address] Dr. Ivan Seo MCHC (RBC) [Mass/Vol] 33.8 g/dL Normal 29.9-35.2 [facility] Comment on above: Performed By: #### H STROPN, TSH, BNP, BMP #### [facility] [address] [place] [address] Dr. Ivan Seo MCV (RBC) [Entitic vol] 89.9 fL Normal 80.0-94.0 [facility] Comment on above: Performed By: #### H STROPN, TSH, BNP, BMP #### [facility] [address] [place] [address] Dr. Ivan Seo MONO # 0.8 103/ul Normal 0.3-0.8 [facility] Comment on above: Performed By: #### H STROPN, TSH, BNP, BMP #### [facility] [address] [place] [address] Dr. Ivan Seo Monocytes/100 WBC (Bld) 9.9 % Normal 1.7-12.0 [facility] Comment on above: Performed By: #### H STROPN, TSH, BNP, BMP #### [facility] [address] [address] [address] Ivan Seo NEUT # 4.5 103/ul Normal 1.4-6.5 [facility] Comment on above: Performed By: #### H STROPN, TSH, BNP, BMP #### [facility] [address] [address] [address] Ivan Seo Neutrophils/100 WBC (Bld) 59.0 % Normal 43.0-75.0 [facility] Comment on above: Performed By: #### H STROPN, TSH, BNP, BMP #### [facility] [address] [place] [address] Dr. Ivan Seo Platelet mean volume (Bld) [Entitic vol] 9.1 fL Critically low 9.5-13.5 [facility] Comment on above: Performed By: #### H STROPN, TSH, BNP, BMP #### [facility] [address] [place] [address] Dr. Ivan Seo PLT 245 103/ul Normal 150-450 [facility] Comment on above: Performed By: #### H STROPN, TSH, BNP, BMP #### [facility] [address] [place] [address] Dr. Ivan Seo RBC 4.47 106/ul Critically low 4.70-6.10 [facility] Comment on above: Performed By: #### H STROPN, TSH, BNP, BMP #### [facility] [address] [place] [address] Dr. Ivan Seo WBC 7.6 103/ul Normal 4.0-11.0 [facility] Comment on above: Performed By: #### H STROPN, TSH, BNP, BMP #### [facility] [address] [place] [address] Dr. Ivan Seo DRUG SCREEN RAPID (URINE)on 08-19-2022 AMP Negative Normal NEGATIVE [facility] Comment on above: Performed By: #### H STROPN, TSH, BNP, BMP #### [facility] [address] [place] [address] Dr. Ivan Seo BAR Negative Normal NEGATIVE [facility] Comment on above: Performed By: #### H STROPN, TSH, BNP, BMP #### [facility] [address] [place] [address] Dr. Ivan Seo BUP Negative Normal NEGATIVE [facility] Comment on above: Performed By: #### H STROPN, TSH, BNP, BMP #### [facility] [address] [address] [address] Ivan Seo BZO Negative Normal NEGATIVE [facility] Comment on above: Performed By: #### H STROPN, TSH, BNP, BMP #### [facility] [address] [place] [address] Dr. Ivan Seo VONNIE Negative Normal NEGATIVE [facility] Comment on above: Performed By: #### H STROPN, TSH, BNP, BMP #### [facility] [address] [place] [address] Dr. Ivan Seo CUT-OFFS SEE BELOW Normal [facility] Comment on above: Result Comment: AMP (Amphetamine): [...] #### H STROPN, TSH, BNP, BMP #### [facility] [address] [place] [address] Dr. Ivan Seo DRUG CUT HEADER DRUG CLASS TEST SYST EM CUT-OFF CONCENTRATIONS ARE FOLLOWS: Normal [facility] Comment on above: Performed By: #### H STROPN, TSH, BNP, BMP #### [facility] [address] [place], [place] [id number] Dr. Ivan Seo mAMP Negative Normal NEGATIVE [facility] Comment on above: Performed By: #### H STROPN, TSH, BNP, BMP #### [facility] [address] [address] [address] Ivan Seo MTD Negative Normal NEGATIVE [facility] Comment on above: Performed By: #### H STROPN, TSH, BNP, BMP #### [facility] [address] [address] [address] Ivan Seo OPI Negative Normal NEGATIVE [facility] Comment on above: Performed By: #### H STROPN, TSH, BNP, BMP #### [facility] [address] [address] [address] Ivan Seo OXY Negative Normal NEGATIVE [facility] Comment on above: Performed By: #### H STROPN, TSH, BNP, BMP #### [facility] [address] [place] [address] Dr. Ivan Seo PCP Negative Normal NEGATIVE [facility] Comment on above: Performed By: #### H STROPN, TSH, BNP, BMP #### [facility] [address] [address] [address] Ivan Seo PPX Negative Normal NEGATIVE [facility] Comment on above: Performed By: #### H STROPN, TSH, BNP, BMP #### [facility] [address] [place] [address] Dr. Ivan Seo TCA Negative Normal NEGATIVE [facility] Comment on above: Performed By: #### H STROPN, TSH, BNP, BMP #### [facility] [address] [place] [address] Dr. Ivan Seo THC Negative Normal NEGATIVE [facility] Comment on above: Performed By: #### H STROPN, TSH, BNP, BMP #### [facility] [address] [place] [address] Dr. Ivan Seo ECHOCARDIO M/2D COMPLETEon 0 08-19-2022 ECHOCARDIO M/2D COMPLETE Patient: SUJATA REYNA Exam Date: 08/19/2022 : 1975 Gender:M Ordering : DR JOSH BACH . Admission #: [id number] Family : Order #: [id number] CLICK HERE TO VIEW EXAM ECHOCARDIOGRAM REPORT [...] 45.76 ml, 45.76 ml Dictated by: Puja Colon M.D. on 08/19/2022 at 12:31 Approved by: Puja Colon M.D. on 08/19/2022 at 12:34 Normal [facility] LIPID PROFILEon 08-19-2022 CHOL-HDL RATIO NORM SEE BELOW Normal [facility] Comment on above: Result Comment: 3.3 - 4.4 LOW RISK 4.4 - 7.1 AVERAGE RISK 7.1 - 11.0 MODERATE RISK >11.0 HIGH RISK Performed By: #### H STROPN, TSH, BNP, BMP #### [facility] [address] [place], [place] [address] Dr. Ivan Seo Cholesterol [Mass/Vol] 213 mg/dL Critically high <=200 [facility] Comment on above: Performed By: #### H STROPN, TSH, BNP, BMP #### [facility] [address] [address] [address] Ivan Seo Cholesterol in HDL [Mass/Vol] 40 mg/dL Normal 40-60 [facility] Comment on above: Performed By: #### H STROPN, TSH, BNP, BMP #### [facility] [address] [address] [address] Ivan Seo Cholesterol in LDL [Mass/Vol] 147.0 mg/dL Normal [facility] Comment on above: Performed By: #### H STROPN, TSH, BNP, BMP #### [facility] [address] [address] [address] Ivan Seo Cholesterol.total/Ch olesterol in HDL [Mass ratio] 5.3 {ratio} Normal [facility] Comment on above: Performed By: #### H STROPN, TSH, BNP, BMP #### [facility] [address] [place] [address] Dr. Ivan Seo HDL NORMAL > or = 60 mg/dl - LO W CARDIOVASCULAR RISK <40 mg/dl - HIGH CARDIOVASCULAR RISK Normal [facility] Comment on above: Performed By: #### H STROPN, TSH, BNP, BMP #### [facility] [address] [address] [address] Ivan Seo LDL CALC NORMAL SEE BELOW Normal [facility] Comment on above: Result Comment: <100 mg/dl OPTIMAL 100 - 129 mg/dl NEAR OR ABOVE OPTIMAL 130 - 159 mg/dl BORDERLINE HIGH 160 - 189 mg/dl HIGH >190 mg/dl VERY HIGH Performed By: #### H STROPN, TSH, BNP, BMP #### [facility] [address] [address] [address] Ivan Seo Triglyceride [Mass/Vol] 130 mg/dL Normal <=150 [facility] Comment on above: Performed By: #### H STROPN, TSH, BNP, BMP #### [facility] [address] [place] [address] Dr. Ivan Seo VLDL CALC 26.0 mg/dL Normal [facility] Comment on above: Performed By: #### H STROPN, TSH, BNP, BMP #### [facility] [address] [address] [address] Ivan Seo MAGNESIUMon 08-19-2022 Magnesium [Mass/Vol] 2.0 mg/dL Normal 1.8-2.4 [facility] Comment on above: Performed By: #### H STROPN, TSH, BNP, BMP #### [facility] [address] [place] [address] Dr. Ivan Seo PROF CHEM 8 (BAS METB)on Anion gap [Moles/Vol] 12.5 mmol/L Normal [facility] Comment on above: Performed By: #### H STROPN, TSH, BNP, BMP #### [facility] [address] [place] [address] Dr. Ivan Seo Calcium [Mass/Vol] 8.8 mg/dL Normal 8.5-10.1 [facility] Comment on above: Performed By: #### H STROPN, TSH, BNP, BMP #### [facility] [address] [place] [address] Dr. Ivan Seo Chloride [Moles/Vol] 104 mmol/L Normal 98-107 [facility] Comment on above: Performed By: #### H STROPN, TSH, BNP, BMP #### [facility] [address] [place] [address] Dr. Ivan Seo CO2 [Moles/Vol] 26.4 mmol/L Normal 21.0-32.0 [facility] Comment on above: Performed By: #### H STROPN, TSH, BNP, BMP #### [facility] [address] [place] [address] Dr. Ivan Seo Creatinine [Mass/Vol] 0.89 mg/dL Normal 0.70-1.30 [facility] Comment on above: Performed By: #### H STROPN, TSH, BNP, BMP #### [facility] [address] [place] [address] Dr. Ivan Seo EGFR-AF MALIAN >60 Normal >=60 [facility] Comment on above: Performed By: #### H STROPN, TSH, BNP, BMP #### [facility] [address] [place] [address] Dr. Ivan Seo EGFR-NON AF MALIAN >60 Normal >=60 [facility] Comment on above: Performed By: #### H STROPN, TSH, BNP, BMP #### [facility] [address] [address] [address] Ivan Seo Glucose [Mass/Vol] 103 mg/dL Normal 74-106 [facility] Comment on above: Performed By: #### H STROPN, TSH, BNP, BMP #### [facility] [address] [address] [address] Ivan Soe Potassium [Moles/Vol] 3.9 mmol/L Normal 3.5-5.1 [facility] Comment on above: Performed By: #### H STROPN, TSH, BNP, BMP #### [facility] [address] [place] [address] Dr. Ivan Seo Sodium [Moles/Vol] 139 mmol/L Normal 136-145 [facility] Comment on above: Performed By: #### H STROPN, TSH, BNP, BMP #### [facility] [address] [place] [address] Dr. Ivan Seo Urea nitrogen [Mass/Vol] 12.0 mg/dL Normal 7.0-18.0 [facility] Comment on above: Performed By: #### H STROPN, TSH, BNP, BMP #### [facility] [address] [place] [address] Dr. Ivan Seo Urea nitrogen/Creatinine [Mass ratio] 13.5 mg/mg Normal [facility] Comment on above: Performed By: #### H STROPN, TSH, BNP, BMP #### [facility] [address] [place] [address] Dr. Ivan Seo BNPon 08-18-2022 Natriuretic peptide B (Bld) [Mass/Vol] 77.0 pg/mL Normal <=450.0 [facility] Comment on above: Performed By: #### H STROPN, TSH, BNP, BMP #### [facility] [address] [place] [address] Dr. Ivan Seo CBC AUTO DIFFon 08-18-2022 BASO # 0.0 103/ul Normal 0.0-0.1 [facility] Comment on above: Performed By: #### H STROPN, TSH, BNP, BMP #### [facility] [address] [place] [address] Dr. Ivan Seo Basophils/100 WBC (Bld) 0.4 % Normal 0.2-2.0 [facility] Comment on above: Performed By: #### H STROPN, TSH, BNP, BMP #### [facility] [address] [place] [address] Dr. Ivan Seo EO # 0.2 103/ul Normal 0.0-0.7 [facility] Comment on above: Performed By: #### H STROPN, TSH, BNP, BMP #### [facility] [address] [place] [address] Dr. Ivan Seo Eosinophils/100 WBC (Bld) 2.7 % Normal 0.9-7.0 [facility] Comment on above: Performed By: #### H STROPN, TSH, BNP, BMP #### [facility] [address] [place] [address] Dr. Ivan Seo Erythrocyte distribution width (RBC) [Ratio] 12.7 % Normal 11.0-15.0 [facility] Comment on above: Performed By: #### H STROPN, TSH, BNP, BMP #### [facility] [address] [place] [address] Dr. Ivan Seo Hematocrit (Bld) [Volume fraction] 39.8 % Critically low 42.0-54.0 [facility] Comment on above: Performed By: #### H STROPN, TSH, BNP, BMP #### [facility] [address] [place] [address] Dr. Ivan Seo Hemoglobin (Bld) [Mass/Vol] 13.9 g/dL Critically low 14.0-18.0 [facility] Comment on above: Performed By: #### H STROPN, TSH, BNP, BMP #### [facility] [address] [place] [address] Dr. Ivan Seo IG # 0.04 10e3/ul Critically high 0.00-0.03 [place] Comment on above: Performed By: #### H STROPN, TSH, BNP, BMP #### [facility] [address] [place] [address] Dr. Ivan Seo IG % 0.5 % Normal 0.0-0.5 [facility] Comment on above: Performed By: #### H STROPN, TSH, BNP, BMP #### [facility] [address] [place] [address] Dr. Ivan Seo LYMPH # 2.4 103/ul Normal 1.2-3.8 [facility] Comment on above: Performed By: #### H STROPN, TSH, BNP, BMP #### [facility] [address] [place] [address] Dr. Ivan Seo Lymphocytes/100 WBC (Bld) 29.4 % Normal 20.5-60.0 [facility] Comment on above: Performed By: #### H STROPN, TSH, BNP, BMP #### [facility] [address] [place] [address] Dr. Ivan Seo MANUAL DIFF REQ NO Normal [facility] Comment on above: Performed By: #### H STROPN, TSH, BNP, BMP #### [facility] [address] [place] [address] Dr. Ivan Seo MCH (RBC) [Entitic mass] 31.1 pg Normal 25.9-34.0 [facility] Comment on above: Performed By: #### H STROPN, TSH, BNP, BMP #### [facility] [address] [place] [address] Dr. Ivan Seo MCHC (RBC) [Mass/Vol] 34.9 g/dL Normal 29.9-35.2 [facility] Comment on above: Performed By: #### H STROPN, TSH, BNP, BMP #### [facility] [address] [place] [address] Dr. Ivan Seo MCV (RBC) [Entitic vol] 89.0 fL Normal 80.0-94.0 [facility] Comment on above: Performed By: #### H STROPN, TSH, BNP, BMP #### [facility] [address] [place] [address] Dr. Ivan Seo MONO # 0.8 103/ul Normal 0.3-0.8 [facility] Comment on above: Performed By: #### H STROPN, TSH, BNP, BMP #### [facility] [address] [place] [address] Dr. Ivan Seo Monocytes/100 WBC (Bld) 9.4 % Normal 1.7-12.0 [facility] Comment on above: Performed By: #### H STROPN, TSH, BNP, BMP #### [facility] [address] [place] [address] Dr. Ivan Seo NEUT # 4.8 103/ul Normal 1.4-6.5 [facility] Comment on above: Performed By: #### H STROPN, TSH, BNP, BMP #### [facility] [address] [place] [address] Dr. Ivan Seo Neutrophils/100 WBC (Bld) 57.6 % Normal 43.0-75.0 [facility] Comment on above: Performed By: #### H STROPN, TSH, BNP, BMP #### [facility] [address] [place] [address] Dr. Ivan Seo Platelet mean volume (Bld) [Entitic vol] 9.2 fL Critically low 9.5-13.5 [facility] Comment on above: Performed By: #### H STROPN, TSH, BNP, BMP #### [facility] [address] [place] [address] Dr. Ivan Seo PLT 262 103/ul Normal 150-450 [facility] Comment on above: Performed By: #### H STROPN, TSH, BNP, BMP #### [facility] [address] [place] [address] Dr. Ivan Seo RBC 4.47 106/ul Critically low 4.70-6.10 [facility] Comment on above: Performed By: #### H STROPN, TSH, BNP, BMP #### [facility] [address] [place] [address] Dr. Ivan Seo WBC 8.3 103/ul Normal 4.0-11.0 [facility] Comment on above: Performed By: #### H STROPN, TSH, BNP, BMP #### [facility] [address] [place] [address] Dr. Ivan Seo Covid-19 PCR ([facility])on 07-30 SARS-CoV-2 (COVID-19) RNA THONG+probe Ql (Unsp spec) Not detected Normal NOT DETECTED [facility] Comment on above: Result Comment: When diagnostic [...] for this test is supported by the Surgery Aide of Health and Human Service's declaration that [...] #### H STROPN, TSH, BNP, BMP #### [facility] [address] [place] [address] Dr. Ivan Seo FREE T3on 08-18-2022 FREE T3 3.10 pg/mlL Normal 2.18-3.98 [facility] Comment on above: Performed By: #### M G, BMP #### [facility] [address] [place] [address] Dr. Ivan Seo FREE T4on 08-18-2022 Free T4 [Mass/Vol] 0.90 ng/dL Normal 0.76-1.46 [facility] Comment on above: Performed By: #### M G, BMP #### [facility] [address] [place] [address] Dr. Ivan Seo PROF CHEM 8 (BAS METB)on Anion gap [Moles/Vol] 10.4 mmol/L Normal [facility] Comment on above: Performed By: #### H STROPN, TSH, BNP, BMP #### [facility] [address] [place] [address] Dr. Ivan Seo Calcium [Mass/Vol] 9.1 mg/dL Normal 8.5-10.1 [facility] Comment on above: Performed By: #### H STROPN, TSH, BNP, BMP #### [facility] [address] [address] [address] Ivan Seo Chloride [Moles/Vol] 101 mmol/L Normal 98-107 [facility] Comment on above: Performed By: #### H STROPN, TSH, BNP, BMP #### [facility] [address] [place] [address] Dr. Ivan Seo CO2 [Moles/Vol] 30.1 mmol/L Normal 21.0-32.0 [facility] Comment on above: Performed By: #### H STROPN, TSH, BNP, BMP #### [facility] [address] [place] [address] Dr. Ivan Seo Creatinine [Mass/Vol] 0.97 mg/dL Normal 0.70-1.30 [facility] Comment on above: Performed By: #### H STROPN, TSH, BNP, BMP #### [facility] [facility] [address] [place] [address] Dr. Ivan Seo EGFR-AF MALIAN >60 Normal >=60 [facility] Comment on above: Performed By: #### H STROPN, TSH, BNP, BMP #### [facility] [address] [place] [address] Dr. Ivan Seo EGFR-NON AF MALIAN >60 Normal >=60 [facility] Comment on above: Performed By: #### H STROPN, TSH, BNP, BMP #### [facility] [address] [place] [address] Dr. Ivan Seo Glucose [Mass/Vol] 109 mg/dL Critically high 74-106 [facility] Comment on above: Performed By: #### H STROPN, TSH, BNP, BMP #### [facility] [address] [address] [address] Ivan Seo Potassium [Moles/Vol] 3.5 mmol/L Normal 3.5-5.1 [facility] Comment on above: Performed By: #### H STROPN, TSH, BNP, BMP #### [facility] [address] [address] [address] Ivan Seo Sodium [Moles/Vol] 138 mmol/L Normal 136-145 [facility] Comment on above: Performed By: #### H STROPN, TSH, BNP, BMP #### [facility] [address] [place] [address] Dr. Ivan Seo Urea nitrogen [Mass/Vol] 17.0 mg/dL Normal 7.0-18.0 [facility] Comment on above: Performed By: #### H STROPN, TSH, BNP, BMP #### [facility] [address] [address] [address] Ivan Seo Urea nitrogen/Creatinine [Mass ratio] 17.5 mg/mg Normal [facility] Comment on above: Performed By: #### H STROPN, TSH, BNP, BMP #### [facility] [address] [place] [address] Dr. Ivan Seo TROPONIN, HIGH SENSITIVITYon 08-18-2022 HSTROP 5.7 pg/mL Normal 4.0-76.1 [facility] Comment on above: Result Comment: CUT- OFF POINTS HAVE BEEN ESTABLISHED BASED ON THE FOURTH UNIVERSAL DEFINITIONS OF MYOCARDIAL INFARCTION. THE UPPER REFERENCE LIMIT (URL) OF TROPONIN, DEFINED THE 99TH PERCENTILE OF cTnI DISTRIBUTION IN A REFERENCE POPULATION, HAS BEEN CONFIRMED THE DECISION THRESHOLD FOR AR DIAGNOSIS. Performed By: #### H STROPN, TSH, BNP, BMP #### [facility] [address] [place] [address] Dr. Ivan Seo HSTROP 6.8 pg/mL Normal 4.0-76.1 [facility] Comment on above: Result Comment: CUT- OFF POINTS HAVE BEEN ESTABLISHED BASED ON THE FOURTH UNIVERSAL DEFINITIONS OF MYOCARDIAL INFARCTION. THE UPPER REFERENCE LIMIT (URL) OF TROPONIN, DEFINED THE 99TH PERCENTILE OF cTnI DISTRIBUTION IN A REFERENCE POPULATION, HAS BEEN CONFIRMED THE DECISION THRESHOLD FOR AR DIAGNOSIS. Performed By: #### H STROPN, TSH, BNP, BMP #### [facility] [address] [place], [place] [address] Dr. Ivan Seo TSHon 08-18-2022 TSH 3.636 uIU/mL Normal 0.358-3.740 [facility] Comment on above: Performed By: #### H STROPN, TSH, BNP, BMP #### [facility] [address] [place], [place] [address] Dr. Ivan Seo XR CHEST 1 Von [...] by: ELENA KNIGHT Date: 2022-08-18 20:09 Normal [facility] Consultation Noteon 06-12-20 Consultation Note [id number]#1.00C D:127 Normal [facility] Lab Reportson 06-12-2022 Lab Reports [id number]#1.00C D:127 Normal [facility] Lab Reports [id number]#1.00C D:127 Normal [facility] Lab Reports [id number]#1.00C D:127 Normal [facility] Patient Correspondenceon Patient Correspondence [id number]#1.00C D:127 Normal [facility] CBC AUTO DIFFon 06-05-2022 BASO # 0.0 103/ul Normal 0.0-0.1 [facility] Comment on above: Performed By: #### H STROPN, TSH, BNP, BMP #### [facility] [address] [place] [address] Dr. Ivan Seo Basophils/100 WBC (Bld) 0.5 % Normal 0.2-2.0 [facility] Comment on above: Performed By: #### H STROPN, TSH, BNP, BMP #### [facility] [address] [place] [address] Dr. Ivan Seo EO # 0.2 103/ul Normal 0.0-0.7 [facility] Comment on above: Performed By: #### H STROPN, TSH, BNP, BMP #### [facility] [address] [place] [address] Dr. Ivan Seo Eosinophils/100 WBC (Bld) 2.1 % Normal 0.9-7.0 [facility] Comment on above: Performed By: #### H STROPN, TSH, BNP, BMP #### [facility] [address] [place] [address] Dr. Ivan Seo Erythrocyte distribution width (RBC) [Ratio] 13.1 % Normal 11.0-15.0 [facility] Comment on above: Performed By: #### H STROPN, TSH, BNP, BMP #### [facility] [address] [place] [address] Dr. Ivan Seo Hematocrit (Bld) [Volume fraction] 41.7 % Critically low 42.0-54.0 [facility] Comment on above: Performed By: #### H STROPN, TSH, BNP, BMP #### [facility] [address] [place] [address] Dr. Ivan Seo Hemoglobin (Bld) [Mass/Vol] 14.2 g/dL Normal 14.0-18.0 [facility] Comment on above: Performed By: #### H STROPN, TSH, BNP, BMP #### [facility] [address] [place] [address] Dr. Ivan Seo IG # 0.06 10e3/ul Critically high 0.00-0.03 [place] Comment on above: Performed By: #### H STROPN, TSH, BNP, BMP #### [facility] [address] [place] [address] Dr. Ivan Seo IG % 0.8 % Critically high 0.0-0.5 [facility] Comment on above: Performed By: #### H STROPN, TSH, BNP, BMP #### [facility] [address] [place] [address] Dr. Ivan Seo LYMPH # 1.8 103/ul Normal 1.2-3.8 [facility] Comment on above: Performed By: #### H STROPN, TSH, BNP, BMP #### [facility] [address] [place] [address] Dr. Ivan Seo Lymphocytes/100 WBC (Bld) 23.4 % Normal 20.5-60.0 [facility] Comment on above: Performed By: #### H STROPN, TSH, BNP, BMP #### [facility] [address] [place] [address] Dr. Ivan Seo MANUAL DIFF REQ NO Normal [facility] Comment on above: Performed By: #### H STROPN, TSH, BNP, BMP #### [facility] [address] [place] [address] Dr. Ivan Seo MCH (RBC) [Entitic mass] 30.8 pg Normal 25.9-34.0 [facility] Comment on above: Performed By: #### H STROPN, TSH, BNP, BMP #### [facility] [address] [place] [address] Dr. Ivan Seo MCHC (RBC) [Mass/Vol] 34.1 g/dL Normal 29.9-35.2 [facility] Comment on above: Performed By: #### H STROPN, TSH, BNP, BMP #### [facility] [address] [place] [address] Dr. Ivan Seo MCV (RBC) [Entitic vol] 90.5 fL Normal 80.0-94.0 [facility] Comment on above: Performed By: #### H STROPN, TSH, BNP, BMP #### [facility] [address] [place] [address] Dr. Ivan Seo MONO # 1.1 103/ul Critically high 0.3-0.8 [facility] Comment on above: Performed By: #### H STROPN, TSH, BNP, BMP #### [facility] [address] [place] [address] Dr. Ivan Seo Monocytes/100 WBC (Bld) 14.2 % Critically high 1.7-12.0 [facility] Comment on above: Performed By: #### H STROPN, TSH, BNP, BMP #### [facility] [address] [place] [address] Dr. Ivan Seo NEUT # 4.4 103/ul Normal 1.4-6.5 [facility] Comment on above: Performed By: #### H STROPN, TSH, BNP, BMP #### [facility] [address] [place] [address] Dr. Ivan Seo Neutrophils/100 WBC (Bld) 59.0 % Normal 43.0-75.0 [facility] Comment on above: Performed By: #### H STROPN, TSH, BNP, BMP #### [facility] [address] [place] [address] Dr. Ivan Seo Platelet mean volume (Bld) [Entitic vol] 9.2 fL Critically low 9.5-13.5 [facility] Comment on above: Performed By: #### H STROPN, TSH, BNP, BMP #### [facility] [address] [place] [address] Dr. Ivan Seo PLT 277 103/ul Normal 150-450 [facility] Comment on above: Performed By: #### H STROPN, TSH, BNP, BMP #### [facility] [address] [place] [address] Dr. Ivan Seo RBC 4.61 106/ul Critically low 4.70-6.10 [facility] Comment on above: Performed By: #### H STROPN, TSH, BNP, BMP #### [facility] [address] [place] [address] Dr. Ivan Seo WBC 7.5 103/ul Normal 4.0-11.0 [facility] Comment on above: Performed By: #### H STROPN, TSH, BNP, BMP #### [facility] [address] [address] [address] Ivan Seo FREE T3on 06-05-2022 FREE T3 3.34 pg/mlL Normal 2.18-3.98 [facility] Comment on above: Performed By: #### M G, BMP #### [facility] [address] [address] [address] Ivan Seo GLYCOHEMOGLOBIN A1Con 2021 ADA RECOMMENDATION SEE BELOW Normal [facility] Comment on above: Result Comment: ADA RECOMMENDED LIMIT 4.0 - 6.0 ADA THERAPEUTIC TARGET < 7.0 ACTION SUGGESTED > 7.0 Performed By: #### H STROPN, TSH, BNP, BMP #### [facility] [address] [address] [address] Ivan Seo Glucose [Mass/Vol] 114 mg/dL Normal [facility] [place] [facility] Comment on above: Performed By: #### H STROPN, TSH, BNP, BMP #### [facility] [address] [address] [address] Ivan Seo HbA1c (Bld) [Mass fraction] 5.6 % Normal 4.5-6.2 [facility] Comment on above: Performed By: #### H STROPN, TSH, BNP, BMP #### [facility] [address] [address] [address] Ivan Seo LIPID PROFILEon 06-05-2022 CHOL-HDL RATIO NORM SEE BELOW Normal [facility] Comment on above: Result Comment: 3.3 - 4.4 LOW RISK 4.4 - 7.1 AVERAGE RISK 7.1 - 11.0 MODERATE RISK >11.0 HIGH RISK Performed By: #### C MP, TSH, FT3, T4, LIPID #### [facility] [address] [place] [address] Dr. Ivan Seo Cholesterol [Mass/Vol] 207 mg/dL Critically high <=200 [facility] Comment on above: Performed By: #### C MP, TSH, FT3, T4, LIPID #### [facility] [address] [address] [address] Ivan Seo Cholesterol in HDL [Mass/Vol] 46 mg/dL Normal 40-60 [facility] Comment on above: Performed By: #### C MP, TSH, FT3, T4, LIPID #### [facility] [address] [address] [address] Ivan Seo Cholesterol in LDL [Mass/Vol] 142.8 mg/dL Normal [facility] Comment on above: Performed By: #### C MP, TSH, FT3, T4, LIPID #### [facility] [address] [address] [address] Ivan Seo Cholesterol.total/Ch olesterol in HDL [Mass ratio] 4.5 {ratio} Normal [facility] Comment on above: Performed By: #### C MP, TSH, FT3, T4, LIPID #### [facility] [address] [address] [address] Ivan Seo HDL NORMAL > or = 60 mg/dl - LO W CARDIOVASCULAR RISK <40 mg/dl - HIGH CARDIOVASCULAR RISK Normal [facility] Comment on above: Performed By: #### C MP, TSH, FT3, T4, LIPID #### [facility] [address] [address] [address] Ivan Seo LDL CALC NORMAL SEE BELOW Normal [facility] Comment on above: Result Comment: <100 mg/dl OPTIMAL 100 - 129 mg/dl NEAR OR ABOVE OPTIMAL 130 - 159 mg/dl BORDERLINE HIGH 160 - 189 mg/dl HIGH >190 mg/dl VERY HIGH Performed By: #### C MP, TSH, FT3, T4, LIPID #### [facility] [address] [address] [address] Ivan Seo Triglyceride [Mass/Vol] 91 mg/dL Normal <=150 [facility] Comment on above: Performed By: #### C MP, TSH, FT3, T4, LIPID #### [facility] [address] [address] [address] Ivan Seo VLDL CALC 18.2 mg/dL Normal [facility] Comment on above: Performed By: #### C MP, TSH, FT3, T4, LIPID #### [facility] [address] [place] [address] Dr. Ivan Seo OCC BLD IMMUNO SCREENon OCCULT BLOOD Negative Normal NEGATIVE [facility] Comment on above: Performed By: #### H STROPN, TSH, BNP, BMP #### [facility] [address] [address] [address] Ivan Seo PROF 14(COMP METB)on 022 Albumin [Mass/Vol] 4.0 g/dL Normal 3.4-5.0 [facility] Comment on above: Performed By: #### C MP, TSH, FT3, T4, LIPID #### [facility] [address] [place] [address] Dr. Ivan Seo Albumin/Globulin [Mass ratio] 1.1 {ratio} Normal [facility] Comment on above: Performed By: #### C MP, TSH, FT3, T4, LIPID #### [facility] [address] [place] [address] Dr. Ivan Seo ALP [Catalytic activity/Vol] 110 U/L Normal 46-116 [facility] Comment on above: Performed By: #### C MP, TSH, FT3, T4, LIPID #### [facility] [address] [place] [address] Dr. Ivan Seo ALT [Catalytic activity/Vol] 122 U/L Critically high 16-63 [facility] Comment on above: Performed By: #### C MP, TSH, FT3, T4, LIPID #### [facility] [address] [address] [address] Ivan Seo Anion gap [Moles/Vol] 13.0 mmol/L Normal [facility] Comment on above: Performed By: #### C MP, TSH, FT3, T4, LIPID #### [facility] [address] [address] [address] Ivan Seo AST [Catalytic activity/Vol] 37 U/L Normal 15-37 [facility] Comment on above: Performed By: #### C MP, TSH, FT3, T4, LIPID #### [facility] [address] [address] [address] Ivan Seo Bilirubin [Mass/Vol] 0.6 mg/dL Normal 0.2-1.0 [facility] Comment on above: Performed By: #### C MP, TSH, FT3, T4, LIPID #### [facility] [address] [place] [address] Dr. Ivan Seo Calcium [Mass/Vol] 9.3 mg/dL Normal 8.5-10.1 [facility] Comment on above: Performed By: #### C MP, TSH, FT3, T4, LIPID #### [facility] [address] [place] [address] Dr. Ivan Seo Chloride [Moles/Vol] 102 mmol/L Normal 98-107 [facility] Comment on above: Performed By: #### C MP, TSH, FT3, T4, LIPID #### [facility] [address] [place] [address] Dr. Ivan Seo CO2 [Moles/Vol] 29.1 mmol/L Normal 21.0-32.0 [facility] Comment on above: Performed By: #### C MP, TSH, FT3, T4, LIPID #### [facility] [address] [place] [address] Dr. Ivan Seo Creatinine [Mass/Vol] 0.84 mg/dL Normal 0.70-1.30 [facility] Comment on above: Performed By: #### C MP, TSH, FT3, T4, LIPID #### [facility] [address] [place] [address] Dr. Ivan Seo EGFR-AF MALIAN >60 Normal >=60 [facility] Comment on above: Performed By: #### C MP, TSH, FT3, T4, LIPID #### [facility] [address] [place] [address] Dr. Ivan Seo EGFR-NON AF MALIAN >60 Normal >=60 [facility] Comment on above: Performed By: #### C MP, TSH, FT3, T4, LIPID #### [facility] [address] [place] [address] Dr. Ivan Seo Globulin (S) [Mass/Vol] 3.8 g/dL Normal [facility] Comment on above: Performed By: #### C MP, TSH, FT3, T4, LIPID #### [facility] [address] [place] [address] Dr. Ivan Seo Glucose [Mass/Vol] 106 mg/dL Normal 74-106 [facility] Comment on above: Performed By: #### C MP, TSH, FT3, T4, LIPID #### [facility] [address] [place] [address] Dr. Ivan Seo Potassium [Moles/Vol] 4.1 mmol/L Normal 3.5-5.1 [facility] Comment on above: Performed By: #### C MP, TSH, FT3, T4, LIPID #### [facility] [address] [place] [address] Dr. Ivan Seo Protein [Mass/Vol] 7.8 g/dL Normal 6.4-8.2 [facility] Comment on above: Performed By: #### C MP, TSH, FT3, T4, LIPID #### [facility] [address] [place] [address] Dr. Ivan Seo Sodium [Moles/Vol] 140 mmol/L Normal 136-145 [facility] Comment on above: Performed By: #### C MP, TSH, FT3, T4, LIPID #### [facility] [address] [place] [address] Dr. Ivan Seo Urea nitrogen [Mass/Vol] 18.0 mg/dL Normal 7.0-18.0 [facility] Comment on above: Performed By: #### C MP, TSH, FT3, T4, LIPID #### [facility] [address] [place] [address] Dr. Ivan Seo Urea nitrogen/Creatinine [Mass ratio] 21.4 mg/mg Normal [facility] Comment on above: Performed By: #### C MP, TSH, FT3, T4, LIPID #### [facility] [address] [address] [address] Ivan Seo T4on 06-05-2022 T4 [Mass/Vol] 7.40 ug/dL Normal 4.50-12.10 [facility] Comment on above: Performed By: #### M G, BMP #### [facility] [address] [place], [place] [address] Dr. Ivan Seo TSHon 06-05-2022 TSH 2.196 uIU/mL Normal 0.358-3.740 [facility] Comment on above: Performed By: #### C MP, TSH, FT3, T4, LIPID #### [facility] [address] [address] [address] Ivan Seo Vital Signs Date Time Vital Sign Value Performing Clinician Facility 05-14-2023 09:16-0500 Diastolic blood pressure 90 mm[Hg] Eduardo NILL [facility] 05-14-2023 09:16-0500 Heart rate 70 /min Eduardo NILL [facility] 05-14-2023 09:16-0500 Mean blood pressure 111 mm[Hg] Eduardo NILL [facility] 05-14-2023 09:16-0500 Respiratory rate 19 /min Eduardo NILL [facility] 05-14-2023 09:16-0500 SaO2% (BldA) [Mass fraction] 96 % Eduardo NILL [facility] 05-14-2023 09:16-0500 Systolic blood pressure 153 mm[Hg] Eduardo NILL [facility] 05-14-2023 09:10-0500 Diastolic blood pressure 95 mm[Hg] Eduardo NILL [facility] 05-14-2023 09:10-0500 Heart rate 71 /min Eduardo NILL [facility] 05-14-2023 09:10-0500 Mean blood pressure 110 mm[Hg] Eduardo NILL [facility] 05-14-2023 09:10-0500 Respiratory rate 16 /min Eduardo NILL [facility] 05-14-2023 09:10-0500 SaO2% (BldA) [Mass fraction] 97 % Eduardo NILL [facility] 05-14-2023 09:10-0500 Systolic blood pressure 141 mm[Hg] Eduardo NILL [facility] 05-14-2023 09:05-0500 Diastolic blood pressure 95 mm[Hg] Eduardo NILL [facility] 05-14-2023 09:05-0500 Heart rate 71 /min Eduardo NILL [facility] 05-14-2023 09:05-0500 Respiratory rate 18 /min Eduardo NILL [facility] 05-14-2023 09:05-0500 SaO2% (BldA) [Mass fraction] 97 % Eduardo NILL [facility] 05-14-2023 09:05-0500 Systolic blood pressure 141 mm[Hg] Eduardo NILL [facility] 05-14-2023 09:00-0500 Mean blood pressure 105 mm[Hg] Eduardo NILL [facility] 05-14-2023 08:55-0500 Body temperature 97.7 [degF] Eduardo NILL [facility] 05-14-2023 08:50-0500 Respiratory rate 23 /min Eduardo NILL [facility] 05-14-2023 08:45-0500 Respiratory rate 20 /min Eduardo NILL [facility] 05-14-2023 08:40-0500 Respiratory rate 21 /min Eduardo NILL [facility] 05-14-2023 07:03-0500 Blood Pressure Location Eduardo NILL [facility] 05-14-2023 07:03-0500 Body temperature 98.24 [degF] Eduardo NILL [facility] 04-14-2023 13:09-0400 Blood Pressure Location Eduardo NILL [facility] [place] 04-14-2023 13:09-0400 Diastolic blood pressure 84 mm[Hg] Eduardo NILL [facility] [place] 04-14-2023 13:09-0400 Heart rate 72 /min Eduardo NILL [facility] [place] 04-14-2023 13:09-0400 Respiratory rate 16 /min Eduardo NILL [facility] [place] 04-14-2023 13:09-0400 Systolic blood pressure 118 mm[Hg] Eduardo NILL [facility] [place] 09-04-2022 08:24-0500 Blood Pressure Location Benton CARL [facility] 09-04-2022 08:24-0500 Diastolic blood pressure 70 mm[Hg] Benton CARL [facility] 09-04-2022 08:24-0500 Systolic blood pressure 124 mm[Hg] Benton CARL [facility] Encounters Encounter Date Encounter Type Care Provider Facility Start: 07-20-2023 End: 07-20-2023 ambulatory [address] [facility] Start: 06-14-2023 ambulatory RISHABH [facility] Start: 06-14-2023 End: 06-14-2023 ambulatory [facility] Start: 05-26-2023 End: 05-27-2023 ambulatory Eduardo R NILL Facility:[facility] Start: 05-14-2023 End: 05-15-2023 ambulatory Eduardo R NILL Facility:[facility] Start: 05-14-2023 End: 05-14-2023 Patient encounter procedure Eduardo R NILL [facility] Start: 05-04-2023 End: 05-04-2023 ambulatory [facility] Start: 04-23-2023 End: 04-23-2023 ambulatory [facility] Start: 04-14-2023 End: 04-15-2023 ambulatory Josh Bach Facility:[facility] Start: 04-14-2023 End: 04-14-2023 Patient encounter procedure Eduardo R NILL [facility] Start: 03-23-2023 End: 03-23-2023 ambulatory [facility] Start: 03-04-2023 ambulatory Eduardo KILGOREL Facility:[facility] Start: 11-13-2022 End: 11-13-2022 ambulatory [facility] Start: 11-05-2022 End: 11-05-2022 ambulatory [facility] Start: 10-20-2022 End: 10-20-2022 ambulatory [facility] Start: 10-02-2022 End: 10-02-2022 ambulatory [facility] Start: 09-25-2022 ambulatory [facility] Start: 09-25-2022 End: 09-26-[address] JOSH BACH . Facility: Start: 09-14-2022 End: 09-14-2022 ambulatory JUSTUS JESUS [facility] Start: 09-11-2022 End: 09-12-2022 Evaluation and management of inpatient DR JOSH BACH . Facility:[facility] Start: 09-04-2022 End: 09-04-[address] JOSH BACH . Facility:[facility] Start: 09-04-2022 End: 09-05-2022 ambulatory Benton CARL Facility:[facility] Start: 09-04-2022 End: 09-04-2022 Patient encounter procedure Benton CARL [facility] Start: 09-02-2022 End: 09-03-2022 ambulatory FLASH CALLES [facility] Start: 08-28-2022 End: 09-02-2022 Evaluation and management of inpatient EDIDE SCOTT [facility] Start: 08-28-2022 Emergency department patient visit SHIRA DIAZ [facility] Start: 08-28-2022 End: 08-28-2022 ambulatory ISA RINCON [facility] Start: 08-27-2022 End: 08-28-[address] JOSH BACH . Facility:[facility] Start: 08-18-2022 End: 08-20-[address] JOSH BACH . Facility:[facility] Start: 06-08-2022 Encounter for genera l adult medical examination without abnormal findings DR JOSH BACH . [facility] Start: 06-05-2022 End: 06-06-[address] JOSH [...] Performed By: #### M G, BMP #### [facility] [address] [address] [address] Ivan Seo Cardiac ablation usi fluoroscopy guidance [facility] CARL Hernia repair [facility] CARL Repair of right ingu inal hernia Eduardo REINOSO Plan of Treatment Date Care Activity Detail Author Start: 09-03-2023 ambulatory Ambulatory Facility:[facility] Immunizations Immunization Date Immunization Notes Care Provider Richie pike 03-25-2020 sipuleucel-T [place] CARL [facility] 04-03-2019 influenza virus vaccine, live, attenuated, for intranasal use Benton SIDDHARTHA [facility] NEGATED: Highlighted row has not occurred!09-12-2021 SARS-CoV-2 (COVID-19) Ad26 vaccine, recombinant Benton CARL [facility] Payers Date Payer Category Payer Unknown [id number] 2.16.84 [id number] 1974 Unknown [id number] 2.16.84 [id number] 1974 Unknown [id number] 2.16.84 [id number] 1974 Unknown [id number] 2.16.84 [id number] 1974 Unknown [id number] 2.16.84 [id number] 1974 Unknown [id number] 2.16.84 [id number] 1974 Unknown [id number] 2.16.8 [id number] 1974 Unknown [id number] 2.16.8 [id number] 1974 Unknown [id number] 2.16.8 [id number] 1974 Unknown [id number] 2.16.8 [id number] 1974 Unknown [id number] 2.16.8 [id number] 1959 Unknown [id number] Social History Date Type Detail Facility Start: 09-04-2022 End: 04-14-2023 Tobacco smoking status Ex-smoker (finding) [facility] Comment on above: Quit 2008 Sex Assigned At Male [facility] Tobacco smoking status Never [facility] [place] Comment on above: Quit 2008 Functional Status Date Assessment Result Facility 05-14-2023 Functional Status N/A [facility] 04-14-2023 Functional Status N/A [facility] 09-04-2022 Functional Status N/A [facility] Clinical Notes 08-28-2022 to 07-20-2023 Note Date & Type Note Facility 07-20-2023 Note [place] Electrophysiology Consult Note [facility] Reason for visit: svt, nsvt, s/p loop, s/p avnrt ablation 08/2022, s/p CTI + posteroseptal pathyway ablation 07/20/23 He is here for follow-up s/p EP study and 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 Chandler and was noted in sinus rhythm he was instructed to increase his Toprol to 100 mg daily and thought he was told to take 100 mg twice daily and that is what has been taking ECG 07/20/2023 sinus rhythm 60 bpm 05/04/[address] chandler LOOP reveals suggestion of atrial flutter / [...] monitor placed due to being admitted at [facility] for chest discomfort and acute PE. 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 [...] was not done. [facility], he was admitted to [facility] for chest pain. He was found to have an acute PE and was started on Eliquis. BLE doppler showed small nonocclusive right femoral vein thrombus. He also noted that he had also traveled down to [place] via car the few days prior to episode. Since his admission at [facility] last week, he has been feeling better. [...] denied illicit drug use Review of Systems Constitutional (more content not included)... [facility] 07-20-2023 Note Patient here for fol low up ablation. Denies chest pain, SOB, palpitations, and bleeding on Eliquis. Says sometimes he feels something that's hard for him to describe. Says his BP continues to run high despite the increase in metoprolol to 100mg bid. Review of Systems All other systems reviewed and are negative. [facility] 06-14-2023 Note OMPREHENSIVE EP STUD Y & POSTEROSEPTAL PATHWAY ABLATION PROCEDURE NOTE DATE OF PROCEDURE: 06/14/2023 PERFORMING PHYSICIAN: Dr. Rishabh Chandler BINGO MANAGER: Dr Stone Cloud INDICATIONS FOR PROCEDURE: 1. History of NSVT. 2. Dizziness 3. H/o of recent EP study and AVNRT ablation. CONSENT: Patient LOCATION: EP Lab PROCEDURAL SEDATION: Versed and Fentanyl. Monitoring: Cardiac telemetry, Blood pressure, continuous pulse oxymetry. Moderate sedation was administered by the sedation nurse under my supervision. Intraprocedural face to face sedation time: 68min. FLUROSCOPY: 3.2min/ 30mGray PREPARATION: Preoperative antibiotics was administered. PROCEDURES [...] was not done. [facility], he was admitted to [facility] for chest pain. He was found to have an acute PE and was started on Eliquis. BLE doppler showed small nonocclusive right femoral vein thrombus. He had a second EP study by me on 10/02/22 and during this time, non sustained atrial flutter and Afib was induced. There was presence of a concealed pathway seen on V-Stim. Since no sustained SVT was induced, ablation was avoided. Subsequently LOOP was implanted on 11/05/22 for palpitations. This revealed the following. He was brought for EP study and ablation. PROCEDURE NOTE: The risks, benefits and alternatives [...] right. Details of cathetersplaced as follows. RFV: 6Fx2 CRD2 His and then RV EP Cath: Dwayne Pope/Chi, 8Fx2: CS: EZ steer catheter, Ablation Once catheter was in position, baseline intervals were noted as below. Baseline right ventricular programmed stimulation showed evidence of VA conduction with fusion via retrograde fast pathway and accessory pathway. Retrograde pathway block was noted at 600/310 with conduction via retrograde fast pathway. Retrograde VA blockw as seen at 600/300ms. Atrial pacing was performed from HRA and proximal CS did not induce any tachycardia. Single echo beat noted at 600/460ms. Isuprel was started at 5mcg/min. On this tachycardia could easily be induced with a baseline LBBB. The CL was 320-200ms with a VA timing of 158ms on Prox CS where it was earliest. Attempts at Ventricular overdrive pacing terminated the tachycardia. His PVC attwempts were futile as the tachycardia would terminate before PVC were dropped. At this time, I decided to map the tachcyardia when it was present for the earliest A. RV catheter was removed and 6F upsized to 9F. ICE catheter was advanced to RA and imaging ruled out pericardial effusion. Transeptal access was procured under ICE guidance and fluoroscopy with a Donovan needle. LA pressure was noted to be 16/6mmHg. SL-1 sheath was replaced with Vizigo sheath. Mapping was performed with pentaray catheter. The earliest A was mapped metiuculosuly and noted to be adjacent to the proximal CS. The catheter was then placed in the RA and mapped also and confirmed to be in the proximal CS. Pentaray was then removed and irrigated thermocool ablation catheter was advanced and ablation performed at 30W. Insurance lesions were done around the region and I reinforced this site from the LA also forming a sandwich of lesions. I also then performed CTI ablation (more content not included)... [facility] 06-14-2023 Note Patient: Sujata shukla Procedure Information Date/Time: 06/14/23829 Procedure: Ablation atrial flutter - to be scheduled before due to insurance [facility] [employer]RARIAN 1 EP [facility] Providers: Rishabh Chandler MD Clinical information reviewed: Allergies Meds Physical Exam Airway Mallampati: II TM distance: >3 FB Neck ROM: full Cardiovascular Dental Pulmonary Abdominal Anesthesia Plan ASA 2 CSE Anesthetic plan and risks discussed with patient. Use of blood products discussed with patient who. Additional Equipment Requests [facility] 05-17-2023 Note [id number] [facility] 05-14-2023 Hospital Discharge instructions Patient Education 05/14/2023 [...] unsweetened, w/added ascorbic acid 1 cup 0.5 [place] 1 cup 0.7 Vegetables Cooked Green beans 1 cup 4.0 Carrots 1/2 cup sliced 2.3 Peas 1 cup 8.8 Potato (baked, with skin) 1 medium potato 3.8 Raw [place] (with peel) 1 cucumber 1.5 Lettuce 1 [...] 8.7 Peanuts 1/2 cup 7.9 Chart from [facility] 2013. SEEK IMMEDIATE MEDICAL CARE IF: You [...] of Agriculture (USDA) National Nutrient Database at: http://www.Mijn AutoCoach.Dolphin.gov/fnic/foodc omp/search/ Created using data from the USDA National Nutrient Database for Standard Reference. Available at http://www.Mijn AutoCoach.Dolphin.gov/fnic/foodc omp/search/. Information adapted from: [facility] Patient Information 2010 [employer]. Divesquare 2012 http://www.datapine/contents/d hhoihzxlpci-mpvmdyc-efqbhl-the-bas ics Follow Up Care 04/14/2023 14:21:37 With:Eduardo REINOSO Address: [address] [place], [place] [address] Business (1) When:7 to 10 days [facility] 05-14-2023 Note Patient: MARCO REYNA Age: 47 years Sex: Male : 1975 Associated Diagnoses: None Author: Eduardo REINOSO MD Subjective no changes to H & P [facility] Comment on above: Result Comment: [...] an ARB and consider an additional medication [facility] 05-04-2023 Note VT Electrophysiology Consult Note [facility] Clinic Reason for visit: svt, nsvt, s/p loop, s/p avnrt ablation Date of Telehealth Visit: 05/04/2023 The patient was notified that using 3rd green party telecommunication application (e.g., [employer]) is not HIPPA compliant and may carry some privacy risks. Yes The visit was conducted [id number] with the use of audio and video [...] monitor placed due to being admitted at [facility] for chest discomfort and acute PE. 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 [...] was not done. [facility] his [facility], he was admitted to [facility] for chest pain. He was found to have an acute PE and was started on Eliquis. BLE doppler showed small nonocclusive right femoral vein thrombus. He also noted that he had also traveled down to [place] via car the few days prior to episode. Since his admission at [facility] last week, he has been feeling better. Chest pain is intermittent but improved. He denies dyspnea,He had an event monitor placed and this revealed NSVT again with symptoms of dizziness. ( Strips attached) PMH- HTN PSH- no pertinent cardiac procedures/surgery FMH- Father passed 48 yo aneurysm- (back of neck), HTN; Social- Former smoker 17 yrs- 1 PPD, rufus (more content not included)... [facility] 04-23-2023 Note Patient here to disc uss medications. Had echo last week. He has concerns with metoprolol and energy level. Denies chest pain and palpitations. Review of Systems Constitutional: Positive for malaise/fatigue. Cardiovascular: Positive for dyspnea on exertion. Neurological: Positive for light-headedness ( when crouched down ). All other systems reviewed and are negative. [facility] 04-23-2023 Note VT Electrophysiology Consult Note [facility] Clinic Reason for visit: svt, nsvt, s/p [...] monitor placed due to being admitted at [facility] for chest discomfort and acute PE. 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 [...] was not done. [facility] his [facility], he was admitted to [facility] for chest pain. He was found to have an acute PE and was started on Eliquis. BLE doppler showed small nonocclusive right femoral vein thrombus. He also noted that he had also traveled down to [place] via car the few days prior to episode. Since his admission at [facility] last week, he has been feeling better. [...] erica re-entry tachycardia) CHF (congestive heart failure) ([facility]/HCC) Hypertension PSH: Past Surgical History: Procedure Laterality Date ABLATION OF DYSRHYTHMIC FOCUS CARDIAC CATHETERIZATION HERNIA REPAIR SH: Social Determinants of Health Tobacco Use: Medium Risk (04/23/2023) Patient History Smoking Tobacco Use: Former Smokeless Tobacco Use: Never Passive Exposure: Past Alcohol Use: Not on file Financial Resource Strain: Low Risk (08/28/2022) Overall Financial Resource Strain (CARDIA) Difficulty o (more content not included)... [facility] 04-14-2023 Note Chief Complaint consultation for colonoscopy [...] Entresto 24 mg-26 (more content not included)... [facility] Comment on above: Result Comment: Elec tronically Signed By: KEMAR MOLINA, Eduardo Galloway\Date and Time Signed: 04/14/23 17:00 EDT 03-23-2023 Note VT Electrophysiology Consult Note [facility] Clinic Reason for visit: wound check s/p [...] monitor placed due to being admitted at [facility] for chest discomfort and acute PE. 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 [...] was not done. [facility], he was admitted to [facility] for chest pain. He was found to have an acute PE and was started on Eliquis. BLE doppler showed small nonocclusive right femoral vein thrombus. He also noted that he had also traveled down to [place] via car the few days prior to episode. Since his admission at [facility] last week, he has been feeling better. [...] file Physically Abus (more content not included)... [facility] 11-13-2022 Note VT Electrophysiology Consult Note [facility] Clinic Reason for visit: wound check s/p [...] monitor placed due to being admitted at [facility] for chest discomfort and acute PE. 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 [...] was not done. [facility] his [facility], he was admitted to [facility] for chest pain. He was found to have an acute PE and was started on Eliquis. BLE doppler showed small nonocclusive right femoral vein thrombus. He also noted that he had also traveled down to [place] via car the few days prior to episode. Since his admission at [facility] last week, he has been feeling better. [...] on file N (more content not included)... [facility] 11-05-2022 Note LOOP IMPLANT PROCEDU RE NOTE DATE OF PROCEDURE: 11/05/2022 PERFORMING PHYSICIAN: Dr. Rishabh Chandler BINGO MANAGER: EARL INDICATIONS FOR PROCEDURE: 1. SVT/AF surveillance [...] the sternum on the left using the [employer] tool. The loop recorder was then injected [...] 2. Do not wet the incision. Rishabh Chandler MD Cardiac Electrophysiology. [facility] 10-20-2022 Note VT Electrophysiology Consult Note [facility] Reason for visit: NSVT s/p EP study without ablation HPI: Patient for follow-up s/p EP study/01/17. 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 Post ablation patient continued to have symptoms of palpitations, and an event monitor placed due to being admitted at [facility] for chest discomfort and acute PE. 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 [...] was not done. [facility], he was admitted to [facility] for chest pain. He was found to have an acute PE and was started on Eliquis. BLE doppler showed small nonocclusive right femoral vein thrombus. He also noted that he had also traveled down to [place] via car the few days prior to episode. Since his admission at [facility] last week, he has been feeling better. [...] 2.25 m??? Meds: (more content not included)... [facility] 10-20-2022 Note Sujata is here today to [...] headaches occasionally). Negative for dizziness and light-headedness. [facility] 10-02-2022 Note COMPREHENSIVE EP LUIS DY PROCEDURE NOTE DATE OF PROCEDURE: 10/02/2022 PERFORMING PHYSICIAN: Dr. Rishabh Chandler BINGO MANAGER: Dr Bobby Boyce INDICATIONS FOR PROCEDURE: 1. [...] was not done. Since his [facility], he was admitted to [facility] for chest pain. He was found to have an acute PE and was started on Eliquis. BLE doppler showed small nonocclusive right femoral vein thrombus. He also noted that he had also traveled down to [place] via car the few days prior to episode. Since his admission at [facility] last week, he has been feeling better. [...] CRD2 His and then RV EP Cath: Turing Data/Chi, 8F: CS: EZ steer catheter Once catheter [...] Follow up with EP as needed. Rishabh Chandler MD Cardiac Electrophysiology [facility] 10-02-2022 Note Patient: Sujtaa shukla Procedure Information Date/Time: 10/02/22 1430 Procedure: EP Study possible ablation - may require anesthesia- to be determined by Dr Chandler [facility] [employer] BROADCAST MUSIC LIBRARIAN 1 EP / [facility] VASCULAR [facility] (Cath) Providers: Rishabh Chandler MD Clinical information reviewed: Allergies Meds Physical [...] Additional Equipment Requests- none Bobby Boyce M.D, [employer] Solder Stripper, PGY- [facility]. [facility] 09-25-2022 Note VT Electrophysiology Consult Note Date of Telehealth Visit: 09/25/22 The patient was notified that using 3rd green party telecommunication application (e.g., [employer]) is not HIPPA compliant and may carry some privacy risks. Yes The visit was conducted [id number]-dl-[id number] with the use of audio and video [...] was not done. Since his [facility], he was admitted to [facility] for chest pain. He was found to have an acute PE and was started on Eliquis. BLE doppler showed small nonocclusive right femoral vein thrombus. He also noted that he had also traveled down to [place] via car the few days prior to episode. Since his admission at [facility] last week, he has been feeling better. [...] 10 mg Ta (more content not included)... [facility] 09-25-2022 Note Event monitor urgent report from Dr Chandler for noted non sustained VT- he recommends EPS with possible VT ablation. [facility] 09-25-[address] Chandler notified katia walker via email that event monitor showed non sustained VT. He recommends to schedule pt for EPS/possible VT ablation- orders placed and email sent to Marie Kinney SCHOOL TRAFFIC SUPERVISOR- EP to call and d/w pt or schedule pt soon for clinic appointment to discuss about planned procedure. Isa Rincon SCHOOL TRAFFIC SUPERVISOR Division of Cardiology, [facility] Ph- [phone] Pager- [phone] Email- [email or web address] 09-14-2022 Note Cardiovascular Medic [facility] SUBJECTIVE Chief Complaint Patient presents with Hospital Follow-up Pt states that he was [facility]12 for an Ablation, tacky cardia , had some clots in right lower lung,also had echo completed Sujata Reyna is a 47 y.o. male here for hospital follow-up. HPI 09/14/2022 -Patient was [facility] for acute HFrEF and unstable angina at the beginning of August. He was found to have normal coronary angiogram. 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 He had an event monitor placed -[facility], he was admitted to [facility] for chest pain. He was found to have an acute PE and was started on Eliquis. BLE doppler showed small nonocclusive right femoral vein thrombus. He also noted that he had also traveled down to [place] via car the few days prior to episode. -Since his admission at [facility] last week, he has been feeling better. Chest pain is intermittent but improved. He denies dyspnea, dizziness/LH, palpitations, near syncope, LE edema, bleeding issues. Discharge Summary (08/28/2022-09/02/2022) Final Discharge Diagnosis: Unstable angina New onset heart failure NYHA class II Admission Diagnosis: Unstable angina ([facility]) [I20.0] Recurrent PSVT Atypical AV erica [...] radiofrequency ablation of SVT. Last HPI per SCHOOL TRAFFIC SUPERVISOR Emerita Rincon: Sujata Reyna is a 46 [...] sweating. PT was evaluated in ED at [facility]- was noted on ECG to have LT [...] palpitations, paroxysmal n (more content not included)... [facility] 09-14-2022 Note Review of Systems Cardiovascular: Positive for chest pain, dyspnea on exertion and paroxysmal nocturnal dyspnea. Negative for claudication, cyanosis, irregular heartbeat, leg swelling, near-syncope, orthopnea, palpitations and syncope. Last Wednesday night started having chest pain 10/10 pain level, had to sleep upright in chair, very uncomfortable to lay down. All other systems reviewed and are negative. [facility] 09-04-2022 Hospital Discharge instructions Patient Education 09/04/2022 [...] urethra. Follow these instructions at home: Take [id number]-[id number] and prescription medicines only as told by [...] 06/14/2006 Document Revised: 05/09/2019 Document Reviewed: 07/19/2017 [employer] You [employer] Patient Education 2020 [employer] Follow Up Care 09/12/2021 08:41:31 With:SIDDHARTHA MOLINA, Benton [place], URL Address: [address] [place] [id number]- When: Unknown [facility] 09-02-2022 Note Pt provided with dis charge instructions and education. All questions answered. Meds sent to home pharmacy. Pt walked to main entrance with spouse. [facility] 09-02-2022 Note 30 day event monitor , and echocardiogram in 4-6 weeks. Then F/U with Dr Chandler in about 6 weeks. [facility] 09-02-2022 Note Hospital Medicine Discharge Summary Final Discharge Diagnosis: Unstable angina New onset heart failure NYHA class II Admission Diagnosis: Unstable angina ([facility]) [I20.0] Recurrent PSVT Atypical AV erica [...] Center 09/14/2022 11:20 AM Justus England NP ALEJANDRINA [facility] Your medication list START taking these [...] Your Medications These medications were sent to [facility]/pharmacy #[id number] - [address] AT [place] [place] [address] dapagliflozin 10 mg metoprolol succinate XL 200 [...] was 40 minutes. Signed Flash Calles MD [facility] Medicine 09/02/2022 9:25 AM [facility] 09-02-2022 Note Cardiology Progress Note Subjective F/U: [...] Unstable angina (CMS/HCC) PSVT (paroxysmal supraventricular tachycardia) ([facility]) Hypertension #Unstable angina #Abnormal stress test - moderate-sized area of moderate severity perfusion defect in anterior wall, inferior wall w/o reversible ischemia #Newly found midrange EF 45-50%, abnormal septal motion, NYHA I-II #LBBB, new #Palpitations #AVNRT- s/p ablation PLAN: -D/W Dr Chandler and Dr lBas regarding recurrent PSVT and plan for EPS [...] in 6 weeks and f/U with Dr Chandler in [place]. F/U in heart failure clinic in 1 week Discussed with patient/patients family and supervisor sleeping bag department Dr. Paula, Dr Blas and Dr Madelaine Rincon, LINDA UTP Cardiovascular Medicine [facility] 2022 Note Indications for elec trophysiologic study: [...] sedation Arterial line placement Adrien Blas M.D. [facility] Disintegrator Operatorhead of marketing adometry and Pediatrics Director: Cardiac Electrophysiology Program [facility] 2022 Note Patient: Sujata shukla Procedure Information Date/Time: 09/01/22 0089 Procedure: EP Study possible ablation - PSVT- Near syncope- Lt BBB [facility] [employer]RAR[employer] 1 EP / [facility] (Cath) Providers: Adrien Blas MD Clinical information reviewed: Allergies Meds Physical Exam Airway Mallampati: I Cardiovascular - normal exam Dental - normal exam Pulmonary - normal exam Abdominal - normal exam Anesthesia Plan Additional Equipment Requests [facility] 2022 Note Hospital Medicine Daily Progress Note - 2022 12:05 PM; Room: [facility]/[id number] Admission: 08/28/2022 12:50 PM; Length of stay: 4 days THE HOSPITALIST TEAM PREFERS TO USE [employer] CHAT FOR COMMUNICATION 7AM-7PM. IF I DO NOT RESPOND WITHIN 15 MINUTES, PLEASE PAGE ME/CALL THROUGH THE ALUMINUM SHINGLE ROOFER. FROM 7PM-7AM, PLEASE PAGE [phone](COVR) Code Status: Full Code Discharge Destination: home [...] angina (CMS/HCC) Hypertension Abnormal cardiovascular stress test PSVT (paroxysmal supraventricular tachycardia) ([facility]) Assessment and Plan -Unstable angina patient [...] for: PREALBUMIN, TSH, T3FREE, FREET4, CORTISOL, FEV1, LPQ9JQM, DLCO, RVSP, HDL, LDL No results found for: [id number], IRON, TIBC, C3, C4, HELEN, CANCA, ASO, [...] sedation. 1% lidocaine (more content not included)... [facility] 2022 Note Cardiology Progress Note Subjective F/U: [...] #LBBB, new #Palpitations #NSVT PLAN: -D/W Dr Chandler and Dr Blas regarding recurrent PSVT and [...] tomorrow am. Discussed with patient/patients family and supervisor sleeping bag department Dr. Paula. Isa Rincon NP [facility]TP Cardiovascular Medicine [facility] 08-31-2022 Note Patient: Sujata shukla Procedure Information Date/Time: 08/31/22 1630 Procedures: Coronary angiography (Bilateral) Right heart cath [facility] [employer] [address] / [facility] (Cath) Providers: Geoffrey French MD [...] consented to blood products. Additional Equipment Requests [facility] 08-31-2022 Note Consult for HF diet education. Pt NPO at this time, pending angiogram today. Reports good appetite and intakes [employer]ARM EQUIPMENT ENGINEER. No other nutrition related concerns. No wt [...] Recommend heart healthy diet when diet advanced. [facility] 08-31-2022 Note Hospital Medicine Daily Progress Note - 08/31/2022 1:38 PM; Room: [address] [place] [address] Admission: 08/28/2022 12:50 PM; Length of stay: 3 days THE HOSPITALIST TEAM PREFERS TO USE [employer] CHAT FOR COMMUNICATION 7AM-7PM. IF I DO NOT RESPOND WITHIN 15 MINUTES, PLEASE PAGE ME/CALL THROUGH THE ALUMINUM SHINGLE ROOFER. FROM 7PM-7AM, PLEASE PAGE [phone](COVR) Code Status: Full Code Discharge Destination: home [...] for: PREALBUMIN, TSH, T3FREE, FREET4, CORTISOL, FEV1, [id number], DLCO, RVSP, HDL, LDL No results found for: [id number], IRON, TIBC, C3, C4, HELEN, CANCA, ASO, [...] Family members Typ (more content not included)... [facility] 08-31-2022 Note Cardiology Progress Note Subjective F/U: [...] failure, NYHA class 2 (CMS/HCC) Unstable angina ([facility]/HCC) Hypertension #Unstable angina #Abnormal stress test - [...] at discharge. Discussed with patient/patients family and supervisor sleeping bag department Dr. Paula. Isa Rincon NP [facility] Cardiovascular Medicine [facility] 08-31-2022 Note Social Work Note Director [employer] met with patient and at bedside to discuss discharge planning. Patient is from home with ; home is two levels and patient claims to be independent with mobility. No PT/OT ordered. Patient denies [facility] and community resources. can transport home at [place]. Likely no other needs. [facility] 08-30-2022 Note Cardiology Progress Note Subjective F/U: [...] angina (CMS/HCC) Hypertension Abnormal cardiovascular stress test #Unstable angina #Abnormal stress test - moderate-sized area of moderate severity perfusion defect in anterior wall, inferior wall w/o reversible ischemia #Newly found midrange EF 45-50%, abnormal septal motion, NYHA I-II #LBBB, new #Palpitations #NSVT PLAN: -Patient scheduled for coronary angiogram tomorrow. Discussed risks/benefits, risks including bleeding, infection, renal impairment, stroke, AR, - he states understanding and is agreeable to proceed. Keep NPO after midnight. -GDMT: Metoprolol increased to 100mg BID in light of PSVT episode today, plan to switch to Toprol at discharge. Continue losartan 25mg daily. -Continue ASA, statin. -Given PRN SL nitroglycerin for chest pain. -Consider event monitor at discharge. Discussed with patient/patients family and supervisor sleeping bag department Dr. Paula. Justus England NP [facility]TP Cardiovascular Medicine [facility] 08-30-2022 Note Hospital Medicine Daily Progress Note - 08/30/2022 11:17 AM; Room: [facility] Admission: 08/28/2022 12:50 PM; Length of stay: 2 days THE HOSPITALIST TEAM PREFERS TO USE [employer] CHAT FOR COMMUNICATION 7AM-7PM. IF I DO NOT RESPOND WITHIN 15 MINUTES, PLEASE PAGE ME/CALL THROUGH THE ALUMINUM SHINGLE ROOFER. FROM 7PM-7AM, PLEASE PAGE [phone](COVR) Code Status: Full Code Discharge Destination: home [...] for: PREALBUMIN, TSH, T3FREE, FREET4, CORTISOL, FEV1, RRU3LOJ, DLCO, RVSP, HDL, LDL No results found for: [id number], IRON, TIBC, C3, C4, HELEN, CANCA, ASO, [...] Systems: Spouse/significant other Signed Eddie Scott MD [facility] Medicine 08/30/2022 11:17 AM [facility] 08-29-2022 Note [facility] Medicine Daily Progress Note - 08/29/2022 1:28 PM; Room: [address] [place] [address] Admission: 08/28/2022 12:50 PM; Length of stay: 1 days THE HOSPITALIST TEAM PREFERS TO USE [employer] CHAT FOR COMMUNICATION 7AM-7PM. IF I DO NOT RESPOND WITHIN 15 MINUTES, PLEASE PAGE ME/CALL THROUGH THE ALUMINUM SHINGLE ROOFER. FROM 7PM-7AM, PLEASE PAGE [phone](COVR) Code Status: Full Code Discharge Destination: home [...] for: PREALBUMIN, TSH, T3FREE, FREET4, CORTISOL, FEV1, SCU6VPJ, DLCO, RVSP, HDL, LDL No results found for: [id number], IRON, TIBC, C3, C4, HELEN, CANCA, ASO, [...] Scott MD Hospital Medicine 08/29/2022 1:28 PM [facility] 08-28-2022 Note Hospital Medicine History and Physical 08/28/2022 3:35 PM THE HOSPITALIST TEAM PREFERS TO USE [employer] CHAT FOR COMMUNICATION 7AM-7PM. IF I DO NOT RESPOND WITHIN 15 MINUTES, PLEASE PAGE ME/CALL THROUGH THE ALUMINUM SHINGLE ROOFER. FROM 7PM-7AM, PLEASE PAGE [phone](COVR) Chief Complaint Chest pain History of Present [...] chronic systolic heart failure, NYHA class 2 ([facility]) 08/28/2022 Unstable angina ([facility]) 08/28/2022 Hypertension 08/28/2022 Abnormal cardiovascular stress [...] this hospital stay by a member of [facility]. Past Medical History Past Medical History: Diagnosis Date Hypertension Past Surgical History Past Surgical Hi (more content not included)... [facility] 08-28-2022 Note [place] heart class II Patient [facility] be [facility] and he will have optimization of goal-directed medical therapy as inpatient and education on heart failure [facility] 08-28-2022 Note Plan admission to [facility] with cardiology consult and plan for cardiac cath today or Wednesday to pendent on inpatient service recommendations, telemetry and further testing [facility] 08-28-2022 Note As above continue metoprolol [facility] 08-28-2022 Note As above* [facility] 08-28-2022 Note Palpitations and not ing abnormal heart rhythm per his automatic blood pressure cuff of which is unable to take as blood pressure is concerning for VT and or A-fib Admission and telemetry monitoring He may need 30-day event monitor at discharge [facility] 08-28-2022 Note New left bundle branch block [facility] 08-28-2022 Note Reviewed patient's e chocardiogram and stress test EKG and his symptoms with patient and voiced concerns regarding his multiple symptoms and intermittent tachycardia/Palpitations with near syncope- He is agreeable with admission [facility] today. [facility] called no beds available we will send patient to emergency room. Her [place] updated and he is agreeable with patient being admitted for planned cardiac cath and evaluation with inpatient stay and telemetryFor any significant arrhythmia [facility] 08-28-2022 Note PT with Multiple epi sodes of near syncope with noted chest tightness and palpitations, Concerning for significant arrhythmia of VT Or A-fib [facility] 08-28-2022 Note MP [facility] 08-28-2022 Note UTP CARDIOLOGY PROGR ESS NOTE [...] sweating. PT was evaluated in ED at [facility]- was noted on ECG to have LT [...] syncope- He is agreeable with [facility] today. [facility] called no beds available we will send [...] determined by electroca (more content not included)... [facility] 08-28-2022 Note Patient is here toda y to establish care regarding failed stress test. Review of Systems HENT: Positive for hearing loss. Eyes: Positive for vision loss in left eye and vision loss in right eye. Cardiovascular: Positive for palpitations. Respiratory: Positive for cough and snoring. Neurological: Positive for light-headedness. All other systems reviewed and are negative. [facility] Evaluation + Plan note Future Appointments Appointment Date:09/03/2023 08:00:00 AM Scheduled Provider:Benton CARL MD Location:[facility] Appointment Type:URO Office Visit Diagnostic Tests PendingPSA Total 07/29/23 [facility] Evaluation + Plan note Future Appointments Appointment Date:05/14/2023 09:00:00 AM Scheduled Provider: Location:[facility] Appointment Type:Surgery FT Appointment Date:09/03/2023 08:00:00 AM Scheduled Provider:Benton CARL MD [facility] App[facility] Type:[facility]O Office Visit [facility] [place] Evaluation + Plan note Future Appointments Appointment Date:09/03/2023 08:00:00 AM Scheduled Provider:Benton CARL MD Location:[facility] Appointment Type:URO Office Visit [facility] Hospital course Narrative No data available for this section [facility] Hospital Discharge instructions No data available for this section [facility] [place] Progress note No data available for this section [facility] Summary Purpose Family History No Family History [...] Personnel Name: Josh Bach MD Address: Address: [address] [place] [address] Personnel Name: Josh Bach MD Address: Address: [address] [place] [address] Personnel Name: Josh Bach MD Address: Address: [address] [place] [address] (unrecognized sect ion and content) No Status Records FoundNo Status Records FoundNo Status Records Found INFORMATION SOURCE (unrecogn ized section and content) DATE CREATED AUTHOR 11/04/2022 [facility] DATE CREATED AUTHOR AUTHOR'S ORGANIZ ATION 05/31/2023 [facility] DATE CREATED AUTHOR AUTHOR'S ORGANIZ ATION 07/21/2023 [facility] FOR RECORDS PERTAINING TO PATIENTS WHO ARE [...] BE BASED ON THE PRIMARY CLINICAL RECORDS. [facility] [employer] provides no warranty or guarantee of the accuracy or completeness of information in this document.
[2023-07-24 12:59] LABS: Anion Gap 13.9; Calcium 8.9 mg/dL (8.5-10.1); Chloride 103 mmol/L (98-107); Estimated GFR (African America >60 (>=60); Estimated GFR (Non-African Ame >60 (>=60); Glucose 102 mg/dL (74-106); Potassium 3.9 mmol/L (3.5-5.1); Sodium 139 mmol/L (136-145)
== END 2023-07-24 09:00 | disposition home or self-care (01) ==
PROVIDERS: PCP Family Medicine; Visit Provider Nurse Practitioner
DX: I10 Essential (primary) hypertension (principal)
CPT/HCPCS: 36415; 80048

== ENCOUNTER 2023-08-12 06:56 | Outpatient (OUT) | payer BC, SELFPAY ==
--- OUTSIDE RECORDS SUMMARY | 2023-08-12 07:00 | XMS_ITS | CCD ---
Author Name Unknown Address [address] [place] [address] Organization [facility] Care Team Providers Care Classroom Teacher Name Role Phone Josh Bach Primary Care [...] Attending Unavailable NILL, Eduardo Zurita Admitting Unavailable JESUSJUSTUS MOYA Attending Unavailable BARAZI, MARIE Attending Unavailable BARAZI, MARIE Attending Unavailable SERGEY, ISA Attending Unavailable GAMALIEL, SARYADIRA Admitting Unavailable AHMED, [...] RISHABH Referring Unavailable MADELAINE, RISHABH Attending Unavailable BARAZI, MARIE Attending Unavailable MADELAINE, RISHABH Attending Unavailable Allergies Allergy Classification Reported Allergen(s) Allergy Type Date of Onset Reaction(s) Facility (1 source) No Known Medication Allergies; Translations: [No Known Medication Allergies] Propensity to adverse reactions (disorder) [facility] Repository Medications Current Medications Medication Drug [...] dysfunction, # 30 tab(s), Refills(s) 2, Pharmacy: [facility] 594, 175, cm, 08/30/20 8:53:00 EST, Height/Length Dosing, 109, kg, 08/30/20 8:53:00 EST, Weight Dosing Start Date: 08/30/20 Status: Ordered terazosin 10 mg oral capsule (3 sources) alpha-Adrenergic Kristen Start: 09-04-2022 take 1 capsule by mouth once daily terazosin 10 mg Cap 10 mg = 1 cap(s), Oral, Daily, # 90 cap(s), Refills(s) 3, Pharmacy: [facility]/pharmacy #[id number], 175, cm, 09/04/22 8:34:00 EST, [...] Translations: [Atrial fibrillation] Onset: 3 04-07-2023 Chronic Cardiac dysrhythmias (9 sources) Tachycardia, unspecified; Translations: [Palpitations] Onset: 3 Episodic Chronic obstructive pulmonary disease and bronchiectasis (1 [...] Onset: 3 Episodic Other aftercare (1 source) FDC (current) use of aspirin; Translations: [JAIL CURRENT USE OF ASPIRIN] Onset: 3 Episodic Other aftercare (1 source) Other buttermaker continuous churn (current) drug therapy; Translations: [OTH JAIL CURRENT DRUG THERAPY] Onset: 3 Episodic Other [...] Translations: [DYSPNEA UNSPECIFIED] Onset: 3 Episodic Other male genital disorders [...] Problem Classification Problem Date Documented Date Episodic/Chronic Other lower respiratory disease (2 sources) Snoring; Translations: [Snoring] Onset: 04-23-2023 Episodic Other screening for suspected conditions (not [...] Test Name Value Interpretation Reference Range Facility 36on 08-02-[address] Bach's office mad e aware on 07/30/2023 and order for echo was then faxed to [facility]. [facility] 36on 07-30-2023 36 Nothing recent on lo op, had svt 07/08 but that was it. I went up on entresto recently for his BP. We can always get an echo to assure not heart related Normal [facility] 36 [facility] ([facility] for Dr. Bach) called to make you aware patient is c/o increased SOB and elevated BP's lately. You saw him last week. Did anything show on his loop? Or does he need an ECG? She said he didn't mention palpitations or LE edema. Please advise. Thanks. [facility] Telephoneon 07-30-2023 Telephone [id number] Sujata Reyna 1975 M Date Provider Department Center 07/30/[address] No family history on file [facility] Office Visiton 07-20-2023 Follow-up visit [id number] Sujata Reyna 1975 M Date Provider Department Center 07/20/2023 MARIE DAVIS ALEJANDRINA [facility] No family history on file Level of Service:92754 [place] OFFICE/OUTPATIENT ESTABLISHED MOD MDM 30 MIN [facility] HPon 06-14-2023 [facility] Electrophysiology Consult Note [facility] Clinic Reason for visit: svt, [...] monitor placed due to being admitted at [facility] for chest discomfort and acute PE. Event [...] was not done. Since his discharge from [facility], he was admitted to [facility] for chest pain. He was found to have an acute PE and was started on Eliquis. BLE doppler showed small nonocclusive right femoral vein thrombus. He also noted that he had also traveled down to [place] via car the few days prior to episode. Since his admission at [facility] last week, he has been [...] (08/28/2022) O (more content not included)... Normal [facility] NURSNOTEon 06-14-2023 NURSNOTE RN educated pt on d/ c instructions. RN encouraged pt to voice any questions or concerns. Pt verbalizes no questions or concerns at this time. Normal [facility] Orders Onlyon 06-07-2023 Orders Only [id number] Sujata Reyna 1975 M Date Provider Department Center 06/07/2023 BELINDA ALVAREZ [facility] V[facility] No family history on file Normal [facility] General Surgery Office/Clini c [...] vaccine, live, trivalent 04/03/2019 Recorded Normal [facility] Comment on above: Result Comment: Elec tronically Signed By: KEMAR MOLINA, Eduardo Zurita\.br\Date and Time Signed: 05/29/23 10:25 EST Ambulatory Visit Summaryon 07-26-2022 Ambulatory Visit Summary AXELSUJATA BERNAL Bridgette :1975 Visit Date:05/26/2023 Ambulatory Visit Instructions Your [...] Benton CARL MD Where: [facility] Normal [facility] Postoperative Documentson Postoperative Documents [id number] IFF [facility] Reminderson 05-26-2023 Reminders - From: Leanne Iyer LPN To: N - Clinical; Sent: 05/26/2023 16:50:18 EST Show up: 04/13/2033 07:00:00 EDT Subject: colonoscopy recall Due Date/Time: 05/14/2033 07:00:00 EST Reminder/Recall Patient due for screening colonoscopy 05/14/2033. Normal [facility] IntraOperative Documentson 1 07-19-2022 IntraOperative Documents [id number]#[id number] TIFF [facility] Consenton 05-17-2023 Consent [id number] IFF [facility] Discharge Instructionson Discharge Instructions [id number]#[id number] IFF [facility] Main OR Intraoperative Recor don 05-17-2023 Main OR Intraoperative Record IntraOp Document Type FT Summary Primary Physician: Eduardo REINOSO MD Finalized Date/Time: 05/17/23 12:28:54 Pt. Name: SUJATA REYNA/Sex: 1975 Male Med Rec #: [id number] Physician: Eduardo REINOSO MD Financial #: [id number] Pt. Type: O Room/Bed: / Admit/Disch: 05/14/23 06:49:57 - 05/14/23 23:59:59 Institution: Case Times FT Entry 1 Patient Times In Room 05/14/23 07:55:00 Out Room 05/14/23 08:55:00 Procedure Times Start 05/14/23 08:00:00 Stop 05/14/23 08:52:00 Anesthesia Times Start 05/14/23 07:55:00 Stop 05/14/23 08:55:00 Time at [facility] 05/14/23 08:02:00 Last Modified By: Robert MCKEON, Evelin Valdivia 05/14/23 08:55:33 General Comments: Colonoscopy stop time at 0812./JAYMERN Lypowiliam/lesion procedure start time at 0818./JAYMERN 05/17/23 chart opened for charge review per Emerita Bansal RN. [place] Case Attendance FT Entry 1 Entry 2 Entry 3 Case Attendee Deppen COMMERCIAL BAKING TEACHER, Eunice Jones RN, Mel Duncan Role Performed COMMERCIAL BAKING TEACHER Cotton Sampler - Primary Scrub - Primary Time In 05/14/23 07:55:00 05/14/23 07:55:00 05/14/23 07:55:00 Time Out 05/14/23 08:55:00 05/14/23 08:55:00 05/14/23 08:55:00 Procedure COLONOSCOPY(Right, COLONOSCOPY(Right, COLONOSCOPY(Right, Left, .), CYST LESION Left, .), CYST LESION Left, .), CYST LESION REMOVAL(.) REMOVAL(.) REMOVAL(.) Comments Dr. Madrid is supervising Last Modified By: Robert MCKEON, Evelin Jones RN, Evelin Jorgensen RN 05/14/23 08:55:35 05/14/23 08:56:01 05/14/23 08:56:01 Entry [...] Modified By: Evelin Jones RN, RN, Evelin Jorgensen RN 05/14/23 08:56:01 05/14/23 08:56:01 05/14/23 08:56:01 Perioperative [...] CLARKE, Given Participants Evelin Jones RN, Mel Sweeney Sparks, Micala E, NILL MD, Jori Huber CST, Alexandria M Time Out Complete 05/14/23 07:59:00 Outcomes Met? [...] Post-Care Text: (more content not included)... Normal [facility] Operative Reporton Operative Report SURGERY DATE: 05/14/2023 [...] Eduardo Reinoso M.D. FACS lr Dictated: 05/14/2023 [id number] Transcribed: 05/14/2023 cc:Josh Bach M.D. [facility] Comment on above: Result Comment: Elec tronically Signed By: Eduardo REINOSO MD R\.br\Date and Time Signed: 05/16/23 20:29 EST Progress [...] list: All Problems Prostatitis / SNOMED CT 87112775 / Confirmed Screening for malignant neoplasm of colon / SNOMED CT 803619318 / Confirmed Obesity / SNOMED CT 6486618250 / Confirmed Neoplasm of uncertain behavior of skin of thigh / SNOMED CT 819378849 / Confirmed Lipoma of left shoulder / SNOMED CT 515142002 / Confirmed LBBB (left bundle branch block) / SNOMED CT 379443804 / Confirmed Impotence / SNOMED CT 2887827001 / Confirmed Hypertension / SNOMED CT 9021347965 / Confirmed History of pulmonary embolism / SNOMED CT 112327125 / Confirmed Glycosuria / SNOMED CT 44101733 / Confirmed Former smoker / SNOMED CT 92938258 / Confirmed Chronic congestive heart failure / SNOMED CT 619039616 / Confirmed Cardiomyopathy / SNOMED CT 889583499 / Confirmed BMI 33.0-33.9,adult / SNOMED CT 848772856 / Confirmed BPH with urinary obstruction / SNOMED CT 1312366567 / Confirmed Atrial fibrillation / SNOMED CT 77722464 / Confirmed Anxiety / SNOMED CT 19381265 / Confirmed Canceled: Elevated PSA / SNOMED CT 2342732815 Canceled: Pyuria / SNOMED CT 9028606 Canceled: Hesitancy / SNOMED CT 105276322 Canceled: 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 Repair of right inguinal hernia (9648481353). Social History Social & Psychosocial Habits Alcohol [...] adequate air exchange. Cardiovascular: Regular rhythm. Plan [place] Society of Anesthesiologists (ASA) physical status classification: Class II. Anesthetic Preoperative Plan: Anesthesia General. Normal [facility] Comment on above: Result Comment: Elec [...] meets criteria ( To home ). Normal [facility] Comment on above: Result Comment: Fernando tronically Signed By: Ricardo Madrid Jr, DO\Date and Time Signed: 05/16/23 07:07 EST Colonoscopy [...] place. Impression and Plan Diagnosis: Colon, diverticulosis (NQO59-SM K57.30, Working, Medical). Course: Progressing as expected. Recommendations: Repeat colonoscopy:: In 5 years. Follow-up:: Await biopsy results in 3-5 days. Diet:: Regular diet. Medication resumption:: Continue current medications. Return to activities:: After 24 hours. Education and Follow-up: Counseled: Family. [facility] Comment on above: Other Comment: Angelita glasgow Attachment - attachment storage system not supported [id number] Can be viewed in source system Missing Attachment - attachment storage system not supported 6668623 Can be viewed in source system Missing Attachment - attachment storage system not supported 3598317 Can be viewed in source system Missing Attachment - attachment storage system not supported [id number] Can be viewed in source system Consent for Treatmenton 04-28 Consent for Treatment [id number]#[id number] IFF [facility] Discharge Instructionson Discharge Instructions SUJATA REYNA :1975 [...] instructed Remove Dressing On 1 Pharmacy Information [facility] Discharge Instructions Discharge Instructions Previously Scheduled Follow-Up Appointments Wednesday 8:00 AM EST With: SIDDHARTHA MOLINA, Benton Zurita Where: [facility] Comment on above: Result Comment: Elec tronically Signed By: Andrea MCKEON, Roseanna\.br\Date and Time Signed: 05/14/23 09:03 EST Inpatient Patient Summaryon 05-14-2023 Inpatient Patient Summary [place] [id number] [facility] Clinical Discharge Instructions PERSON INFORMATION Name: SUJATA REYNA PHYSICIANS Admitting Physician: Eduardo REINOSO MD Attending Physician: Eduardo REINOSO MD PCP: Josh Bach MD Discharge Diagnosis: Encounter for colorectal cancer screening; Encounter for screening for malignant neoplasm of rectum; Lipoma of back; Neoplasm of uncertain behavior of skin of thigh Comment: PATIENT EDUCATION INFORMATION Instructions: Medication Leaflets: Follow up: With: Address: When: Eduardo REINOSO [address] [place] [address], [address], [place] [phone] Business (1) Within 7 to 10 days Type Location Start Finish [facility] URO Office Visit [facility] 09/03/2023 8:00 AM 09/03/2023 8:15 AM [...] By Mouth every day. Refills: 3. Comment: Rohan [facility] Main OR PACU I Recordon 04-28 Main OR PACU I Record PACU Phase I Document Type FT Summary Primary Physician: Eduardo REINOSO MD Finalized Date/Time: 05/14/23 09:48:44 Pt. Name: SUJATA REYNA/Sex: 1975 Male Med Rec #: [id number] Physician: Eduardo REINOSO MD Financial #: [id number] Pt. Type: O Room/Bed: / Admit/Disch: 05/14/23 [...] 09:25 Roseanna Mendez RN 05/14/23 09:48 Normal [facility] Main OR Preoperative Recordo n 05-14-2023 Main OR Preoperative Record Holding Area Document Type FT Summary Primary Physician: Eduardo REINOSO MD Finalized Date/Time: 05/14/23 06:58:55 Pt. Name: SUJATA REYNA/Sex: 1975 Male Med Rec #: [id number] Physician: Eduardo REINOSO MD Financial #: [id number] Pt. Type: O Room/Bed: / Admit/Disch: 05/14/23 [...] By: Sophia Membreno RN 05/14/23 06:58 Normal [facility] Monitor Recordon 05-14-2023 Monitor Record [id number] TIFF Normal [facility] Outpatient Surgery Discharge Instructionon 05-14-2023 Outpatient Surgery Discharge Instruction [address] [address] Patient Discharge Instructions PERSON INFORMATION Name: SUJATA REYNA Date of : 1975 Current Date: 05/14/2023 08:58:25 PHYSICIANS Admitting Physician: Eduardo REINOSO MD Discharge Diagnosis: Encounter for colorectal cancer screening; Encounter for screening for malignant neoplasm of rectum; Lipoma of back; Neoplasm of uncertain behavior of skin of thigh AXEL SUJATA Angeles has been given the following list of [...] THE NEAREST EMERGENCY ROOM OR CALL 911 AXEL Arechiga ANDREW W, have received the attached patient education materials/instructions and have verbalized understanding: May we do a follow up call? Yes No I was present when discharge instructions were given Patient Signature Date Clinican/Nurse Signature _ Date Follow up: With: Address: When: Eduardo Crow, [address], [place] [phone] Business (1) Within 7 to 10 days Type Location Start Finish [place] URO Office Visit [facility] 09/03/2023 8:00 AM 09/03/2023 8:15 AM Confirmed Pharmacy Information: [facility] You may receive a survey from Nolberto Giraldo asking you to rate your care experience. Your feedback is important and will help us understand what we do well and how we can improve the quality of care we provide to you, your loved ones and our community. It?s an honor to serve you. Thank you for choosing [facility] HERE ARE THE MEDICATION CHANGES THAT OCCURRED [...] PATIENT EDUCATION INFORMATION Instructions: Medication Leaflets: Normal [facility] Patient Education - Texton 1 07-14-2022 [...] unsweetened, w/added ascorbic acid 1 cup 0.5 [place] 1 cup 0.7 Vegetables Cooked Green beans 1 cup 4.0 Carrots 1/2 cup sliced 2.3 Peas 1 cup 8.8 Potato (baked, with skin) 1 medium potato 3.8 Raw [place] (with peel) 1 cucumber 1.5 Lettuce 1 [...] 8.7 Peanuts 1/2 cup 7.9 Chart from [facility] 2013. SEEK IMMEDIATE MEDICAL CARE [...] Nutrient Database for Standard Reference. Available at http://www.Shared Performance.usda.gov /fnic/foodcomp/search/. Information adapted from: [facility] Patient Information ?2009 [place]. [facility] 2013 http://www.Payward /contents/diverticular- cbprpvd-spklua-tki-basi cs [facility] Orders Onlyon 05-11-2023 Orders Only [id number] Sujata Reyna 1975 M Date Provider Department Center 05/11/2023 MARIE DAVIS [facility] No family history on file [facility] Insurance Correspondenceon 1 07-06-2022 Insurance Correspondence [id number]#[id number] TIFF [facility] Telemedicineon 05-04-2023 Telemedicine [id number] Sujata Reyna 1975 M Date Provider Department Center 05/04/2023 Sam-RISHABH BURKETT ALEJANDRINA [facility] No family history on file Level of Service:53039 [place] PHYS/QHP TELEPHONE EVALUATION 11-20 MIN Normal [facility] Office Visiton 04-23-2023 Follow-up visit [id number] Sujata Reyna 1975 M Date Provider Department Center 04/23/2023 BenjaminHEATH MARIE [facility] No family history on file Level of Service:05892 [place] OFFICE/OUTPATIENT ESTABLISHED MOD MDM 30-39 MIN [facility] Consent for Procedure/Surger yon 04-15-2023 Consent for Procedure/Surgery [id number] IFF [facility] Ambulatory Visit Summaryon 1 Ambulatory [...] Appointments Wednesday 9:00 AM EST With: Where: [facility] Surgical Services Wednesday 8:00 AM EST With: Benton CARL MD Where: [facility] Office Visiton 03-23-2023 Follow-up visit [id number] Sujata Reyna 1975 M Date Provider Department Center 03/23/2023 RISHABH DIAMOND [facility] No family history on file Level of Service:35310 [place] OFFICE/OUTPATIENT ESTABLISHED MOD MDM 30-39 MIN [facility] Physician Referralon 023 Physician Referral [id number] :127 [facility] Office Visiton 11-13-2022 Follow-up visit [id number] Sujata Reyna 1975 M Date Provider Department Center 11/13/2022 MARIE DAVIS [facility] No family history on file Level of Service:63418 [place] OFFICE/OUTPATIENT ESTABLISHED MOD MDM 30-39 MIN [facility] HPon 11-05-2022 H&P reviewed. The patient was examined and there are no changes to the H&P. [facility] NURSNOTEon 11-05-2022 NURSNOTE RN educated pt on d/ c instructions. RN encouraged pt to voice any questions or concerns. Pt verbalizes no questions or concerns at this time. Pt was wheeled off of unit with all of belongings. [facility] HPon 10-20-2022 [facility] Electrophysiology Consult Note [facility] Clinic Reason for visit: NSVT s/p EP study without ablation HPI: Patient for follow-up s/p EP study/01/17. 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 Post ablation patient continued to have symptoms of palpitations, and an event monitor placed due to being admitted at [facility] for chest discomfort and acute PE. Event [...] was not done. Since his discharge from [facility], he was admitted to [facility] for chest pain. He was found to have an acute PE and was started on Eliquis. BLE doppler showed small nonocclusive right femoral vein thrombus. He also noted that he had also traveled down to [place] via car the few days prior to episode. Since his admission at [facility] last week, he has been [...] 2.25 m??? Meds: (more content not included)... [facility] Office Visiton 10-20-2022 Follow-up visit [id number] Sujata Reyna 1975 M Date Provider Department Center 10/20/2022 1596-MARIE KINNEY [facility] No family history on file Level of Service:33613 [place] OFFICE/OUTPATIENT ESTABLISHED MOD MDM 30-39 MIN Reason for Visit and Comments: Follow-up [967793] Fatigue [46] Results [95] - 30 day monitor post EP procedure. [facility] HPon 10-02-2022 HP H&P reviewed. The patient was examined and there are no changes to the H&P. [facility] MRI ABDOMEN WO W CONon 09-28 MRI [...] by: TRIPP CAMPO Date: 2022-09-28 08:56 Normal [facility] 09-25-2022 [facility] Electrophysiology Consult Note Date of Telehealth Visit: 09/25/22 The patient was notified that using 3rd constitution party telecommunication application (e.g., Trivnet) is not HIPPA compliant and may carry some privacy risks. Yes The visit was conducted [id number] with the use of audio and video [...] was not done. Since his discharge from [facility], he was admitted to [facility] for chest pain. He was found to have an acute PE and was started on Eliquis. BLE doppler showed small nonocclusive right femoral vein thrombus. He also noted that he had also traveled down to [place] via car the few days prior to episode. Since his admission at [facility] last week, he has been [...] 10 mg Ta (more content not included)... [facility] Orders Onlyon 09-25-2022 Orders Only [id number] Sujata Reyna 1975 M Date Provider Department Center 09/25/[address] [facility] No family history on file [facility] Telemedicineon 09-25-2022 Telemedicine [id number] Sujata Reyna 1975 M Date Provider Department Center 09/25/2022 RISHABH DIAMOND CARD [facility] No family history on file Level of Service:09924 [place] PHYS/QHP TELEPHONE EVALUATION 21-30 MIN [facility] XR FOREIGN BODY EYEon 2022 XR FOREIGN BODY EYE EXAMINATION: XR FORE IGN BODY EYE HISTORY: Foreign body in eye COMPARISON: No relevant comparison available. FINDINGS: ORBITS: Negative for a metallic foreign body. OTHER: Negative. IMPRESSION: No metallic foreign body in the orbits Electronically authenticated by: TERESSA BRIDGES Date: 2022-09-25 07:59 Normal [facility] Follow-Upon 09-14-2022 Follow-Up [id number] Sujata Reyna 1975 M Date Provider Department Center 09/14/2022 Seng-JUSTUS ENGLAND [facility] No family history on file Level of Service:32425 [place] OFFICE/OUTPATIENT ESTABLISHED MOD MDM 30-39 MIN Reason for Visit and Comments: Hospital Follow-up [832] - Pt states that he was admitted to [facility] from 09/10-09/12 for an Ablation, tacky cardia , had some clots in right lower lung,also had echo completed Normal [facility] CBC AUTO DIFFon 09-12-2022 BASO # 0.0 103/ul Normal 0.0-0.1 [facility] Comment on above: Performed By: #### H STROPN, TSH, BNP, BMP #### [facility] [address] [place] [address] Dr. Ivan Seo Basophils/100 WBC (Bld) 0.3 % Normal 0.2-2.0 [facility] Comment on above: Performed By: #### H STROPN, TSH, BNP, BMP #### [facility] [address] [place] [address] [address] Ivan Seo EO # 0.0 103/ul Normal 0.0-0.7 [facility] Comment on above: Performed By: #### H STROPN, TSH, BNP, BMP #### [facility] [address] [place] [address] [address] Ivan Seo Eosinophils/100 WBC (Bld) 0.3 % Critically low 0.9-7.0 [facility] Comment on above: Performed By: #### H STROPN, TSH, BNP, BMP #### [facility] [address] [place] [address] Dr. Ivan Seo Erythrocyte distribution width (RBC) [Ratio] 12.7 % Normal 11.0-15.0 [facility] Comment on above: Performed By: #### H STROPN, TSH, BNP, BMP #### [facility] [address] [place] [address] Dr. Ivan Seo Hematocrit (Bld) [Volume fraction] 32.9 % Critically low 42.0-54.0 [facility] Comment on above: Performed By: #### H STROPN, TSH, BNP, BMP #### [facility] [address] [place] [address] [address] Ivan Seo Hemoglobin (Bld) [Mass/Vol] 11.5 g/dL Critically low 14.0-18.0 [facility] Comment on above: Performed By: #### H STROPN, TSH, BNP, BMP #### [facility] [address] [address] [address] Ivan Seo IG # 0.13 10e3/ul Critically high 0.00-0.03 [facility] Comment on above: Performed By: #### H STROPN, TSH, BNP, BMP #### [facility] [address] [place] [address] Dr. Ivan Seo IG % 1.0 % Critically high 0.0-0.5 [facility] Comment on above: Performed By: #### H STROPN, TSH, BNP, BMP #### [facility] [address] [address] [address] Ivan Seo LYMPH # 2.1 103/ul Normal 1.2-3.8 [facility] Comment on above: Performed By: #### H STROPN, TSH, BNP, BMP #### [facility] [address] [address] [address] Ivan Seo Lymphocytes/100 WBC (Bld) 15.6 % Critically low 20.5-60.0 [facility] Comment on above: Performed By: #### H STROPN, TSH, BNP, BMP #### [facility] [address] [address] [address] Ivan Seo MANUAL DIFF REQ NO Normal [facility] Comment on above: Performed By: #### H STROPN, TSH, BNP, BMP #### [facility] [address] [address] [address] Ivan Seo MCH (RBC) [Entitic mass] 31.3 pg Normal 25.9-34.0 [facility] Comment on above: Performed By: #### H STROPN, TSH, BNP, BMP #### [facility] [address] [place] [address] Dr. Ivan Seo MCHC (RBC) [Mass/Vol] 35.0 g/dL Normal 29.9-35.2 [facility] Comment on above: Performed By: #### H STROPN, TSH, BNP, BMP #### [facility] [address] [place] [address] Dr. Ivan Seo MCV (RBC) [Entitic vol] 89.4 fL Normal 80.0-94.0 [facility] Comment on above: Performed By: #### H STROPN, TSH, BNP, BMP #### [facility] [address] [place] [address] Dr. Ivan Seo MONO # 1.2 103/ul Critically high 0.3-0.8 [facility] Comment on above: Performed By: #### H STROPN, TSH, BNP, BMP #### [facility] [address] [place] [address] Dr. Ivan Seo Monocytes/100 WBC (Bld) 9.1 % Normal 1.7-12.0 [facility] Comment on above: Performed By: #### H STROPN, TSH, BNP, BMP #### [facility] [address] [place] [address] Dr. Ivan Seo NEUT # 9.9 103/ul Critically high 1.4-6.5 [facility] Comment on above: Performed By: #### H STROPN, TSH, BNP, BMP #### [facility] [address] [place] [address] Dr. Ivan Seo Neutrophils/100 WBC (Bld) 73.7 % Normal 43.0-75.0 [facility] Comment on above: Performed By: #### H STROPN, TSH, BNP, BMP #### [facility] [address] [place] [address] Dr. Ivan Seo Platelet mean volume (Bld) [Entitic vol] 8.9 fL Critically low 9.5-13.5 [facility] Comment on above: Performed By: #### H STROPN, TSH, BNP, BMP #### [facility] [address] [address] [address] Ivan Seo PLT 264 103/ul Normal 150-450 [facility] Comment on above: Performed By: #### H STROPN, TSH, BNP, BMP #### [facility] [address] [address] [address] Ivan Seo RBC 3.68 106/ul Critically low 4.70-6.10 [facility] Comment on above: Performed By: #### H STROPN, TSH, BNP, BMP #### [facility] [address] [address] [address] vIan Seo WBC 13.4 103/ul Critically high 4.0-11.0 [facility] Comment on above: Performed By: #### H STROPN, TSH, BNP, BMP #### [facility] [address] [place] [address] Dr. Ivan Seo PROF 14(COMP METB)on 023 Albumin [Mass/Vol] 3.1 g/dL Critically low 3.4-5.0 [facility] Comment on above: Performed By: #### H STROPN, TSH, BNP, BMP #### [facility] [address] [place] [address] Dr. Ivan Seo Albumin/Globulin [Mass ratio] 0.8 {ratio} Normal [facility] Comment on above: Performed By: #### H STROPN, TSH, BNP, BMP #### [facility] [address] [place] [address] Dr. Ivan Seo ALP [Catalytic activity/Vol] 81 U/L Normal 46-116 [facility] Comment on above: Performed By: #### H STROPN, TSH, BNP, BMP #### [facility] [address] [place] [address] Dr. Ivan Seo ALT [Catalytic activity/Vol] 43 U/L Normal 16-63 [facility] Comment on above: Performed By: #### H STROPN, TSH, BNP, BMP #### [facility] [address] [place] [address] Dr. Ivan Seo Anion gap [Moles/Vol] 11.7 mmol/L Normal [facility] Comment on above: Performed By: #### H STROPN, TSH, BNP, BMP #### [facility] [address] [address] [address] Ivan Seo AST [Catalytic activity/Vol] 18 U/L Normal 15-37 [facility] Comment on above: Performed By: #### H STROPN, TSH, BNP, BMP #### [facility] [address] [address] [address] Ivan Seo Bilirubin [Mass/Vol] 0.5 mg/dL Normal 0.2-1.0 [facility] Comment on above: Performed By: #### H STROPN, TSH, BNP, BMP #### [facility] [address] [place] [address] Dr. Ivan Seo Calcium [Mass/Vol] 8.9 mg/dL Normal 8.5-10.1 [facility] Comment on above: Performed By: #### H STROPN, TSH, BNP, BMP #### [facility] [address] [place] [address] Dr. Ivan Seo Chloride [Moles/Vol] 106 mmol/L Normal 98-107 [facility] Comment on above: Performed By: #### H STROPN, TSH, BNP, BMP #### [facility] [address] [place] [address] Dr. Ivan Seo CO2 [Moles/Vol] 27.7 mmol/L Normal 21.0-32.0 [facility] Comment on above: Performed By: #### H STROPN, TSH, BNP, BMP #### [facility] [address] [place] [address] Dr. Ivan Seo Creatinine [Mass/Vol] 0.75 mg/dL Normal 0.70-1.30 [facility] Comment on above: Performed By: #### H STROPN, TSH, BNP, BMP #### [facility] [address] [place] [address] Dr. Ivan Seo EGFR-AF BARBADIAN >60 Normal >=60 [facility] Comment on above: Performed By: #### H STROPN, TSH, BNP, BMP #### [facility] [address] [address] [address] Ivan Seo EGFR-NON AF BARBADIAN >60 Normal >=60 [facility] Comment on above: Performed By: #### H STROPN, TSH, BNP, BMP #### [facility] [address] [address] [address] Ivan Seo Globulin (S) [Mass/Vol] 3.8 g/dL Normal [facility] Comment on above: Performed By: #### H STROPN, TSH, BNP, BMP #### [facility] [address] [address] [address] Ivan Seo Glucose [Mass/Vol] 100 mg/dL Normal 74-106 [facility] Comment on above: Performed By: #### H STROPN, TSH, BNP, BMP #### [facility] [address] [address] [address] Ivan Seo Potassium [Moles/Vol] 3.4 mmol/L Critically low 3.5-5.1 [facility] Comment on above: Performed By: #### H STROPN, TSH, BNP, BMP #### [facility] [address] [address] [address] Ivan Seo Protein [Mass/Vol] 6.9 g/dL Normal 6.4-8.2 [facility] Comment on above: Performed By: #### H STROPN, TSH, BNP, BMP #### [facility] [address] [address] [address] Ivan Seo Sodium [Moles/Vol] 142 mmol/L Normal 136-145 [facility] Comment on above: Performed By: #### H STROPN, TSH, BNP, BMP #### [facility] [address] [address] [address] Ivan Seo Urea nitrogen [Mass/Vol] 16.0 mg/dL Normal 7.0-18.0 [facility] Comment on above: Performed By: #### H STROPN, TSH, BNP, BMP #### [facility] [address] [place] [address] Dr. Ivan Seo Urea nitrogen/Creatinine [Mass ratio] 21.3 mg/mg Normal [facility] Comment on above: Performed By: #### H STROPN, TSH, BNP, BMP #### [facility] [address] [place] [address] Dr. Ivan Seo BNPon 09-11-2022 Natriuretic peptide B (Bld) [Mass/Vol] 194.0 pg/mL Normal <=450.0 [facility] Comment on above: Performed By: #### B TRADING ASSISTANT #### [facility] [address] [place] [address] Dr. Ivan Seo CBC AUTO DIFFon 09-11-2022 BASO # 0.0 103/ul Normal 0.0-0.1 [facility] Comment on above: Performed By: #### M G, BMP #### [facility] [address] [place] [address] Dr. Ivan Seo Basophils/100 WBC (Bld) 0.2 % Normal 0.2-2.0 [facility] Comment on above: Performed By: #### M G, BMP #### [facility] [address] [place] [address] Dr. Ivan Seo EO # 0.0 103/ul Normal 0.0-0.7 [facility] Comment on above: Performed By: #### M G, BMP #### [facility] [address] [place] [address] Dr. Ivan Seo Eosinophils/100 WBC (Bld) 0.0 % Critically low 0.9-7.0 [facility] Comment on above: Performed By: #### M G, BMP #### [facility] [address] [place] [address] Dr. Ivan Seo Erythrocyte distribution width (RBC) [Ratio] 12.7 % Normal 11.0-15.0 [facility] Comment on above: Performed By: #### M G, BMP #### [facility] [address] [place] [address] Dr. Ivan Seo Hematocrit (Bld) [Volume fraction] 34.5 % Critically low 42.0-54.0 [facility] Comment on above: Performed By: #### M G, BMP #### [facility] [address] [place] [address] Dr. Ivan Seo Hemoglobin (Bld) [Mass/Vol] 11.8 g/dL Critically low 14.0-18.0 [facility] Comment on above: Performed By: #### M G, BMP #### [facility] [address] [place] [address] Dr. Ivan Seo IG # 0.18 10e3/ul Critically high 0.00-0.03 [facility] Comment on above: Performed By: #### M G, BMP #### [facility] [address] [place] [address] Dr. Ivan Seo IG % 1.4 % Critically high 0.0-0.5 [facility] Comment on above: Performed By: #### M G, BMP #### [facility] [address] [place] [address] Dr. Ivan Seo LYMPH # 1.4 103/ul Normal 1.2-3.8 [facility] Comment on above: Performed By: #### M G, BMP #### [facility] [address] [place] [address] Dr. Ivan Seo Lymphocytes/100 WBC (Bld) 10.2 % Critically low 20.5-60.0 [facility] Comment on above: Performed By: #### M G, BMP #### [facility] [address] [place] [address] Dr. Ivan Seo MANUAL DIFF REQ NO Normal [facility] Comment on above: Performed By: #### M G, BMP #### [facility] [address] [place] [address] Dr. Ivan Seo MCH (RBC) [Entitic mass] 30.8 pg Normal 25.9-34.0 [facility] Comment on above: Performed By: #### M G, BMP #### [facility] [address] [place] [address] Dr. Ivan Seo MCHC (RBC) [Mass/Vol] 34.2 g/dL Normal 29.9-35.2 [facility] Comment on above: Performed By: #### M G, BMP #### [facility] [address] [place] [address] Dr. Ivan Seo MCV (RBC) [Entitic vol] 90.1 fL Normal 80.0-94.0 [facility] Comment on above: Performed By: #### M G, BMP #### [facility] [address] [place] [address] Dr. Ivan Seo MONO # 0.5 103/ul Normal 0.3-0.8 [facility] Comment on above: Performed By: #### M G, BMP #### [facility] [address] [place] [address] Dr. Ivan Seo Monocytes/100 WBC (Bld) 3.7 % Normal 1.7-12.0 [facility] Comment on above: Performed By: #### M G, BMP #### [facility] [address] [place] [address] Dr. Ivan Seo NEUT # 11.2 103/ul Critically high 1.4-6.5 [facility] Comment on above: Performed By: #### M G, BMP #### [facility] [address] [place] [address] Dr. Ivan Seo Neutrophils/100 WBC (Bld) 84.5 % Critically high 43.0-75.0 [facility] Comment on above: Performed By: #### M G, BMP #### [facility] [address] [place] [address] Dr. Ivan Seo Platelet mean volume (Bld) [Entitic vol] 9.2 fL Critically low 9.5-13.5 [facility] Comment on above: Performed By: #### M G, BMP #### [facility] [address] [place] [address] Dr. Ivan Seo PLT 276 103/ul Normal 150-450 [facility] Comment on above: Performed By: #### M G, BMP #### [facility] [address] [address] [address] Ivan Seo RBC 3.83 106/ul Critically low 4.70-6.10 [facility] Comment on above: Performed By: #### M G, BMP #### [facility] [address] [address] [address] Ivan Seo WBC 13.3 103/ul Critically high 4.0-11.0 [facility] Comment on above: Performed By: #### M G, BMP #### [facility] [address] [address] [address] Ivan Seo CULTURE SPUTUMon 09-11-2022 CULTURE SPUTUM Culture Observations : NORMAL RESPIRATORY SAUNDRA. Normal [facility] Comment on above: Performed By: #### H STROPN, TSH, BNP, BMP #### [facility] [address] [address] [address] Ivan Seo CULTURE URINEon 09-11-2022 CULTURE URINE Culture Observations : NO GROWTH. Normal [facility] Comment on above: Performed By: #### M G, BMP #### [facility] [address] [address] [address] Ivan Seo ECHOCARDIO M/2D COMPLETEon 0 09-11-2022 ECHOCARDIO M/2D COMPLETE Patient: SUJATA REYNA Exam Date: 09/11/2022 : 1975 Gender:M Ordering : DR JOSH BACH . Admission #: [id number] Family : Order #: [id number] CLICK HERE TO VIEW EXAM ECHOCARDIOGRAM REPORT [...] Colon M.D. on 09/11/2022 at 14:35 Normal [facility] POINT OF CARE GLUCOSEon 08-26 Glucose [Mass/Vol] 122 mg/dL Critically high 74-106 [facility] Comment on above: Performed By: #### H STROPN, TSH, BNP, BMP #### [facility] [address] [address] [address] Ivan Seo Glucose [Mass/Vol] 161 mg/dL Critically high 74-106 [facility] Comment on above: Performed By: #### M G, BMP #### [facility] [address] [address] [address] Ivan Seo Glucose [Mass/Vol] 123 mg/dL Critically high -106 [facility] Comment on above: Performed By: #### H STROPN, TSH, BNP, BMP #### [facility] [address] [address] [address] Ivan Seo PROF 14(COMP METB)on 023 Albumin [Mass/Vol] 3.5 g/dL Normal 3.4-5.0 [facility] Comment on above: Performed By: #### H STROPN, TSH, BNP, BMP #### [facility] [address] [address] [address] Ivan Seo Albumin/Globulin [Mass ratio] 0.9 {ratio} [facility] Comment on above: Performed By: #### H STROPN, TSH, BNP, BMP #### [facility] [address] [address] [address] Ivan Seo ALP [Catalytic activity/Vol] 106 U/L Normal 46-116 [facility] Comment on above: Performed By: #### H STROPN, TSH, BNP, BMP #### [facility] [address] [place] [address] Dr. Ivan Seo ALT [Catalytic activity/Vol] 37 U/L Normal 16-63 [facility] Comment on above: Performed By: #### H STROPN, TSH, BNP, BMP #### [facility] [address] [place] [address] Dr. Ivan Seo Anion gap [Moles/Vol] 11.5 mmol/L Normal [facility] Comment on above: Performed By: #### H STROPN, TSH, BNP, BMP #### [facility] [address] [place] [address] Dr. Ivan Seo AST [Catalytic activity/Vol] 15 U/L Normal 15-37 [facility] Comment on above: Performed By: #### H STROPN, TSH, BNP, BMP #### [facility] [address] [place] [address] Dr. Ivan Seo Bilirubin [Mass/Vol] 0.5 mg/dL Normal 0.2-1.0 [facility] Comment on above: Performed By: #### H STROPN, TSH, BNP, BMP #### [facility] [address] [place] [address] Dr. Ivan Seo Calcium [Mass/Vol] 9.1 mg/dL Normal 8.5-10.1 [facility] Comment on above: Performed By: #### H STROPN, TSH, BNP, BMP #### [facility] [address] [place] [address] Dr. Ivan Seo Chloride [Moles/Vol] 104 mmol/L Normal 98-107 [facility] Comment on above: Performed By: #### H STROPN, TSH, BNP, BMP #### [facility] [address] [place] [address] Dr. Ivan Seo CO2 [Moles/Vol] 27.1 mmol/L Normal 21.0-32.0 [facility] Comment on above: Performed By: #### H STROPN, TSH, BNP, BMP #### [facility] [address] [address] [address] Ivan Seo Creatinine [Mass/Vol] 0.78 mg/dL Normal 0.70-1.30 [facility] Comment on above: Performed By: #### H STROPN, TSH, BNP, BMP #### [facility] [address] [address] [address] Ivan Seo EGFR-AF BARBADIAN >60 Normal >=60 [facility] Comment on above: Performed By: #### H STROPN, TSH, BNP, BMP #### [facility] [address] [address] [address] Ivan Soe EGFR-NON AF BARBADIAN >60 Normal >=60 [facility] Comment on above: Performed By: #### H STROPN, TSH, BNP, BMP #### [facility] [address] [place] [address] Dr. Ivan Seo Globulin (S) [Mass/Vol] 4.0 g/dL Normal [facility] Comment on above: Performed By: #### H STROPN, TSH, BNP, BMP #### [facility] [address] [address] [address] Ivan Seo Glucose [Mass/Vol] 176 mg/dL Critically high 74-106 [facility] Comment on above: Performed By: #### H STROPN, TSH, BNP, BMP #### [facility] [address] [address] [address] Ivan Seo Potassium [Moles/Vol] 3.6 mmol/L Normal 3.5-5.1 [facility] Comment on above: Performed By: #### H STROPN, TSH, BNP, BMP #### [facility] [address] [address] [address] Ivan Seo Protein [Mass/Vol] 7.5 g/dL Normal 6.4-8.2 [facility] Comment on above: Performed By: #### H STROPN, TSH, BNP, BMP #### [facility] [address] [address] [address] Ivan Seo Sodium [Moles/Vol] 139 mmol/L Normal 136-145 [facility] Comment on above: Performed By: #### H STROPN, TSH, BNP, BMP #### [facility] [address] [address] [address] Ivan Seo Urea nitrogen [Mass/Vol] 11.0 mg/dL Normal 7.0-18.0 [facility] Comment on above: Performed By: #### H STROPN, TSH, BNP, BMP #### [facility] [address] [address] [address] Ivan Seo Urea nitrogen/Creatinine [Mass ratio] 14.1 mg/mg Normal [facility] Comment on above: Performed By: #### H STROPN, TSH, BNP, BMP #### [facility] [address] [place] [address] Dr. Ivan Seo PTT HEPARIN MONITORon 2022 aPTT Coag (Bld) [Time] 47.8 s Normal 39.5-54.2 [facility] Comment on above: Performed By: #### H STROPN, TSH, BNP, BMP #### [facility] [address] [place] [address] Dr. Ivan Seo SPUTUM GRAM STAINon 09-12-19 COMMENTS [facility] Comment on above: Performed By: #### H STROPN, TSH, BNP, BMP #### [facility] [address] [place] [address] Dr. Ivan Seo DIPHTHEROIDS Normal [facility] Comment on above: Performed By: #### H STROPN, TSH, BNP, BMP #### [facility] [address] [place] [address] Dr. Ivan Seo EPITHELIALS <25 Normal [facility] Comment on above: Performed By: #### H STROPN, TSH, BNP, BMP #### [facility] [address] [place] [address] Dr. Ivan Seo FUNGAL ELEMENTS Normal [facility] Comment on above: Performed By: #### H STROPN, TSH, BNP, BMP #### [facility] [address] [place] [address] Dr. Ivan Seo GRAM NEG BACILLI Normal [facility] Comment on above: Performed By: #### H STROPN, TSH, BNP, BMP #### [facility] [address] [address] [address] Ivan Seo GRAM NEG DIPPLOCOCCI Normal [facility] Comment on above: Performed By: #### H STROPN, TSH, BNP, BMP #### [facility] [address] [address] [address] Ivan Seo GRAM POS BACILLI Normal [facility] Comment on above: Performed By: #### H STROPN, TSH, BNP, BMP #### [facility] [address] [address] [address] Ivan Seo GRAM POSITIVE COCCI MODERATE Normal [facility] Comment on above: Performed By: #### H STROPN, TSH, BNP, BMP #### [facility] [address] [address] [address] Ivan Seo WBC (Bld) [#/Vol] 10*3/uL Normal [facility] Comment on above: Performed By: #### H STROPN, TSH, BNP, BMP #### [facility] [address] [address] [address] Ivan Seo TROPONIN, HIGH SENSITIVITYon 09-11-2022 HSTROP 9.2 pg/mL Normal 4.0-76.1 [facility] Comment on above: Result Comment: CUT- OFF POINTS HAVE BEEN ESTABLISHED BASED ON THE FOURTH UNIVERSAL DEFINITIONS OF MYOCARDIAL INFARCTION. THE UPPER REFERENCE LIMIT (URL) OF TROPONIN, DEFINED THE 99TH PERCENTILE OF cTnI DISTRIBUTION IN A REFERENCE POPULATION, HAS BEEN CONFIRMED THE DECISION THRESHOLD FOR PR DIAGNOSIS. Performed By: #### H STROPN, TSH, BNP, BMP #### [facility] [address] [address] [address] Ivan Seo UA RANDOM W/MICROSCOPICon BACTERIA NONE SEEN Normal NONE SEEN [facility] Comment on above: Performed By: #### H STROPN, TSH, BNP, BMP #### [facility] [address] [address] [address] Ivan Seo Bilirubin Ql (U) Negative Normal NEGATIVE [facility] Comment on above: Performed By: #### H STROPN, TSH, BNP, BMP #### [facility] [address] [address] [address] Ivan Seo CAST NONE SEEN Normal NONE SEEN [facility] Comment on above: Performed By: #### H STROPN, TSH, BNP, BMP #### [facility] [address] [address] [address] Ivan Seo Clarity (U) CLEAR Normal CLEAR [facility] Comment on above: Performed By: #### H STROPN, TSH, BNP, BMP #### [facility] [address] [address] [address] Ivan Seo Color (U) LT. YELLOW Normal YELLOW [facility] Comment on above: Performed By: #### H STROPN, TSH, BNP, BMP #### [facility] [address] [place] [address] Dr. Ivan Seo Crystals LM Nom (Urine sed) NONE SEEN Normal NONE SEEN [facility] Comment on above: Performed By: #### H STROPN, TSH, BNP, BMP #### [facility] [address] [address] [address] Ivan Seo Epithelial cells LM Ql (Urine sed) NONE SEEN Normal NONE SEEN /RARE The [facility] Comment on above: Performed By: #### H STROPN, TSH, BNP, BMP #### [facility] [address] [address] [address] Ivan Seo Glucose Ql (U) 1000 mg/dl Abnormal NEGATIVE [facility] Comment on above: Performed By: #### H STROPN, TSH, BNP, BMP #### [facility] [address] [address] [address] Ivan Seo Hemoglobin Ql (U) Negative Normal NEGATIVE [facility] Comment on above: Performed By: #### H STROPN, TSH, BNP, BMP #### [facility] [address] [address] [address] Ivan Seo Ketones Ql (U) Negative Normal NEGATIVE [facility] Comment on above: Performed By: #### H STROPN, TSH, BNP, BMP #### [facility] [address] [address] [address] Ivan Seo LEUKOCYTES Negative Normal NEGATIVE [facility] Comment on above: Performed By: #### H STROPN, TSH, BNP, BMP #### [facility] [address] [address] [address] Ivan Seo MUCOUS NONE SEEN Normal NONE SEEN [facility] Comment on above: Performed By: #### H STROPN, TSH, BNP, BMP #### [facility] [address] [address] [address] Ivan Seo Nitrite Ql (U) Negative Normal NEGATIVE [facility] Comment on above: Performed By: #### H STROPN, TSH, BNP, BMP #### [facility] [address] [place] [address] Dr. Ivan Seo pH (U) 6.0 [pH] Normal 5-9 [facility] Comment on above: Performed By: #### H STROPN, TSH, BNP, BMP #### [facility] [address] [place] [address] Dr. Ivan Seo RBC NONE SEEN Abnormal 0-2 [facility] Comment on above: Performed By: #### H STROPN, TSH, BNP, BMP #### [facility] [address] [place] [address] Dr. Ivan Seo SPEC GRAVITY 1.020 Normal 1.005-<=1.025 [facility] Comment on above: Performed By: #### H STROPN, TSH, BNP, BMP #### [facility] [address] [place] [address] Dr. Ivan Seo UA PROTEIN Negative Normal NEGATIVE/ TRACE [facility] Comment on above: Performed By: #### H STROPN, TSH, BNP, BMP #### [facility] [address] [place] [address] Dr. Ivan Seo Urobilinogen Qn (U) 0.2 {Teto'U}/dL Normal 0.2 - 1. 0 [facility] Comment on above: Performed By: #### H STROPN, TSH, BNP, BMP #### [facility] [address] [address] [address] Ivan Seo WBC NONE SEEN Normal NONE SEEN [facility] Comment on above: Performed By: #### H STROPN, TSH, BNP, BMP #### [facility] [address] [address] [address] Ivan Seo US JORDEN DOP LEG [...] NORI MCALLISTER Date: 2022-09-11 07:52 Normal [facility] BNPon 09-10-2022 Natriuretic peptide B (Bld) [Mass/Vol] 138.0 pg/mL Normal <=450.0 [facility] Comment on above: Performed By: #### H STROPN, TSH, BNP, BMP #### [facility] [address] [address] [address] Ivan Seo CBC W MANUAL DIFFon 09-11-19 23 ATYPICAL LYMPH # Normal [facility] Comment on above: Performed By: #### H STROPN, TSH, BNP, BMP #### [facility] [address] [address] [address] Ivan Seo ATYPICAL LYMPH % Normal [facility] Comment on above: Performed By: #### H STROPN, TSH, BNP, BMP #### [facility] [address] [place] [address] Dr. Ivan Seo BAND # 0.0 103/ul Normal 0.0-0.3 [facility] Comment on above: Performed By: #### H STROPN, TSH, BNP, BMP #### [facility] [address] [place] [address] Dr. Ivan Seo BAND % 0 % Normal 0-5 [facility] Comment on above: Performed By: #### H STROPN, TSH, BNP, BMP #### [facility] [address] [place] [address] Dr. Ivan Seo BASOM # 0.00 103/ul Normal 0.00-0.10 [facility] Comment on above: Performed By: #### H STROPN, TSH, BNP, BMP #### [facility] [address] [place] [address] Dr. Ivan Seo BASOM % 0.0 % Critically low 0.2-2.0 [facility] Comment on above: Performed By: #### H STROPN, TSH, BNP, BMP #### [facility] [address] [place] [address] Dr. Ivan Seo BLAST # Normal [facility] Comment on above: Performed By: #### H STROPN, TSH, BNP, BMP #### [facility] [address] [place] [address] Dr. Ivan Seo BLAST % Normal [facility] Comment on above: Performed By: #### H STROPN, TSH, BNP, BMP #### [facility] [address] [place] [address] Dr. Ivan Seo CORRECTED WBC Normal 4.0-11.0 [facility] Comment on above: Performed By: #### H STROPN, TSH, BNP, BMP #### [facility] [address] [place] [address] Dr. Ivan Seo EOS # 0.31 103/ul Normal 0.00-0.70 [facility] Comment on above: Performed By: #### H STROPN, TSH, BNP, BMP #### [facility] [address] [place] [address] Dr. Ivan Seo EOS% 2.0 % Normal 0.9-7.0 [facility] Comment on above: Performed By: #### H STROPN, TSH, BNP, BMP #### [facility] [address] [address] [address] Ivan Seo HCT 35.0 % Critically low 42.0-54.0 [facility] Comment on above: Performed By: #### H STROPN, TSH, BNP, BMP #### [facility] [address] [address] [address] Ivan Seo HGB 11.9 g/dl Critically low 14.0-18.0 [facility] Comment on above: Performed By: #### H STROPN, TSH, BNP, BMP #### [facility] [address] [address] [address] Ivan Seo LYMPHM # 0.92 103/ul Critically low 1.20-3.80 [facility] Comment on above: Performed By: #### H STROPN, TSH, BNP, BMP #### [facility] [address] [address] [address] Ivan Seo LYMPHM% 6.0 % Critically low 20.5-60.0 [facility] Comment on above: Performed By: #### H STROPN, TSH, BNP, BMP #### [facility] [address] [address] [address] Ivan Seo MCH 30.7 pg Normal 25.9-34.0 [facility] Comment on above: Performed By: #### H STROPN, TSH, BNP, BMP #### [facility] [address] [address] [address] Ivan Seo MCHC 34.0 g/dl Normal 29.9-35.2 [facility] Comment on above: Performed By: #### H STROPN, TSH, BNP, BMP #### [facility] [address] [address] [address] Ivan Seo MCV 90.2 fL Normal 80.0-94.0 [facility] Comment on above: Performed By: #### H STROPN, TSH, BNP, BMP #### [facility] [address] [address] [address] Ivan Seo METAMYELOCYTE # Normal [facility] Comment on above: Performed By: #### H STROPN, TSH, BNP, BMP #### [facility] [address] [address] [address] Ivan Seo METAMYELOCYTE % Normal [facility] Comment on above: Performed By: #### H STROPN, TSH, BNP, BMP #### [facility] [address] [address] [address] Ivan Seo MONOM# 1.38 103/ul Critically high 0.30-0.80 [facility] Comment on above: Performed By: #### H STROPN, TSH, BNP, BMP #### [facility] [address] [place] [address] Dr. Ivan Seo MONOM% 9.0 % Normal 1.7-12.0 [facility] Comment on above: Performed By: #### H STROPN, TSH, BNP, BMP #### [facility] [address] [place] [address] Dr. Ivan Seo MPV 9.2 fL Critically low 9.5-13.5 [facility] Comment on above: Performed By: #### H STROPN, TSH, BNP, BMP #### [facility] [address] [place] [address] Dr. Ivan Seo MYELOCYTE # Normal [facility] Comment on above: Performed By: #### H STROPN, TSH, BNP, BMP #### [facility] [address] [place] [address] Dr. Ivan Seo MYELOCYTE % Normal [facility] Comment on above: Performed By: #### H STROPN, TSH, BNP, BMP #### [facility] [address] [place] [address] Dr. Iavn Seo NRBC Normal [facility] Comment on above: Performed By: #### H STROPN, TSH, BNP, BMP #### [facility] [address] [place] [address] Dr. Ivan Seo PLT 275 103/ul Normal 150-450 [facility] Comment on above: Performed By: #### H STROPN, TSH, BNP, BMP #### [facility] [address] [address] [address] Ivan Seo RBC 3.88 106/ul Critically low 4.70-6.10 [facility] Comment on above: Performed By: #### H STROPN, TSH, BNP, BMP #### [facility] [address] [address] [address] Ivan Seo RDW 12.9 % Normal 11.0-15.0 [facility] Comment on above: Performed By: #### H STROPN, TSH, BNP, BMP #### [facility] [address] [address] [address] Ivan Seo SEG # 12.70 103/ul Critically high 1.40-6.50 [facility] Comment on above: Performed By: #### H STROPN, TSH, BNP, BMP #### [facility] [address] [address] [address] Ivan Seo SEG % 83.0 % Critically high 43.0-75.0 [facility] Comment on above: Performed By: #### H STROPN, TSH, BNP, BMP #### [facility] [address] [address] [address] Ivan Seo WBC 15.3 103/ul Critically high 4.0-11.0 [facility] Comment on above: Performed By: #### H STROPN, TSH, BNP, BMP #### [facility] [address] [place] [address] Dr. Ivan Seo CTA CHEST WO W [...] JEAN CONDE Date: 2022-09-10 20:03 Normal [facility] Covid-19 PCR (CVDTB)on 08-26 SARS-CoV-2 (COVID-19) RNA THONG+probe Ql (Unsp spec) Not detected Normal NOT DETECTED [facility] Comment on above: Result Comment: When diagnostic [...] for this test is supported by the [place] Health and Human Service's declaration that [...] #### H STROPN, TSH, BNP, BMP #### [facility] [address] [place] [address] Dr. Ivan Seo PROF 14(COMP METB)on 023 Albumin [Mass/Vol] 3.8 g/dL Normal 3.4-5.0 [facility] Comment on above: Performed By: #### H STROPN, TSH, BNP, BMP #### [facility] [address] [place] [address] Dr. Ivan Seo Albumin/Globulin [Mass ratio] 1.0 {ratio} Normal [facility] Comment on above: Performed By: #### H STROPN, TSH, BNP, BMP #### [facility] [address] [place] [address] Dr. Ivan Seo ALP [Catalytic activity/Vol] 110 U/L Normal 46-116 [facility] Comment on above: Performed By: #### H STROPN, TSH, BNP, BMP #### [facility] [address] [place] [address] Dr. Ivan Seo ALT [Catalytic activity/Vol] 42 U/L Normal 16-63 [facility] Comment on above: Performed By: #### H STROPN, TSH, BNP, BMP #### [facility] [address] [place] [address] Dr. Ivan Seo Anion gap [Moles/Vol] 12.9 mmol/L Normal [facility] Comment on above: Performed By: #### H STROPN, TSH, BNP, BMP #### [facility] [address] [address] [address] Ivan Seo AST [Catalytic activity/Vol] 15 U/L Normal 15-37 [facility] Comment on above: Performed By: #### H STROPN, TSH, BNP, BMP #### [facility] [address] [address] [address] Ivan Seo Bilirubin [Mass/Vol] 0.8 mg/dL Normal 0.2-1.0 [facility] Comment on above: Performed By: #### H STROPN, TSH, BNP, BMP #### [facility] [address] [address] [address] Ivan Seo Calcium [Mass/Vol] 9.2 mg/dL Normal 8.5-10.1 [facility] Comment on above: Performed By: #### H STROPN, TSH, BNP, BMP #### [facility] [address] [place] [address] Dr. Ivan Seo Chloride [Moles/Vol] 103 mmol/L Normal 98-107 [facility] Comment on above: Performed By: #### H STROPN, TSH, BNP, BMP #### [facility] [address] [address] [address] Ivan Seo CO2 [Moles/Vol] 26.6 mmol/L Normal 21.0-32.0 [facility] Comment on above: Performed By: #### H STROPN, TSH, BNP, BMP #### [facility] [address] [place] [address] Dr. Ivan Seo Creatinine [Mass/Vol] 0.84 mg/dL Normal 0.70-1.30 [facility] Comment on above: Performed By: #### H STROPN, TSH, BNP, BMP #### [facility] [address] [place] [address] Dr. Ivan Seo EGFR-AF BARBADIAN >60 Normal >=60 [facility] Comment on above: Performed By: #### H STROPN, TSH, BNP, BMP #### [facility] [address] [address] [address] Ivan Seo EGFR-NON AF [place] >60 Normal >=60 [facility] Comment on above: Performed By: #### H STROPN, TSH, BNP, BMP #### [facility] [address] [address] [address] Ivan Seo Globulin (S) [Mass/Vol] 3.9 g/dL Normal [facility] Comment on above: Performed By: #### H STROPN, TSH, BNP, BMP #### [facility] [address] [address] [address] Ivan Seo Glucose [Mass/Vol] 111 mg/dL Critically high 74-106 T [facility] Comment on above: Performed By: #### H STROPN, TSH, BNP, BMP #### [facility] [address] [place] [address] Dr. Ivan Seo Potassium [Moles/Vol] 3.5 mmol/L Normal 3.5-5.1 [facility] Comment on above: Performed By: #### H STROPN, TSH, BNP, BMP #### [facility] [address] [address] [address] Ivan Seo Protein [Mass/Vol] 7.7 g/dL Normal 6.4-8.2 [facility] Comment on above: Performed By: #### H STROPN, TSH, BNP, BMP #### [facility] [address] [place] [address] Dr. Ivan Seo Sodium [Moles/Vol] 139 mmol/L Normal 136-145 [facility] Comment on above: Performed By: #### H STROPN, TSH, BNP, BMP #### [facility] [address] [place] [address] Dr. Ivan Seo Urea nitrogen [Mass/Vol] 11.0 mg/dL Normal 7.0-18.0 [facility] Comment on above: Performed By: #### H STROPN, TSH, BNP, BMP #### [facility] [address] [place] [address] Dr. Ivan Seo Urea nitrogen/Creatinine [Mass ratio] 13.1 mg/mg Normal [facility] Comment on above: Performed By: #### H STROPN, TSH, BNP, BMP #### [facility] [address] [address] [address] Ivan Seo PROTIMEon 09-10-2022 INR Coag (PPP) [Relative time] 1.08 {INR} Normal [facility] Comment on above: Performed By: #### H STROPN, TSH, BNP, BMP #### [facility] [address] [address] [address] Ivan Seo INR GUIDELINES SEE BELOW Normal [facility] Comment on above: Result Comment: ROGELIO RED INR: 2.0 - 3.0 CONDITIONS NOT LISTED BELOW 2.5 - 3.5 FOR PROSTHETIC HEART VALVE REPLACEMENT 2.5 - 3.5 RECURRENT THROMBOSIS Performed By: #### H STROPN, TSH, BNP, BMP #### [facility] [address] [place] [address] Dr. Ivan Seo PT Coag (PPP) [Time] 11.4 s Normal 9.0-11.6 [facility] Comment on above: Performed By: #### H STROPN, TSH, BNP, BMP #### [facility] [address] [place] [address] Dr. Ivan Seo PTTon 09-10-2022 aPTT Coag (Bld) [Time] 29.9 s Normal 22.3-36.2 [facility] Comment on above: Performed By: #### H STROPN, TSH, BNP, BMP #### [facility] [address] [place] [address] Dr. Ivan Seo TROPONIN, HIGH SENSITIVITYon 09-10-2022 HSTROP 10.9 pg/mL Normal 4.0-76.1 [facility] Comment on above: Result Comment: CUT- OFF POINTS HAVE BEEN ESTABLISHED BASED ON THE FOURTH UNIVERSAL DEFINITIONS OF MYOCARDIAL INFARCTION. THE UPPER REFERENCE LIMIT (URL) OF TROPONIN, DEFINED THE 99TH PERCENTILE OF cTnI DISTRIBUTION IN A REFERENCE POPULATION, HAS BEEN CONFIRMED THE DECISION THRESHOLD FOR PR DIAGNOSIS. Performed By: #### H STROPN, TSH, BNP, BMP #### [facility] [address] [place] [address] Dr. Ivan Seo Ambulatory Visit Summaryon 0 09-04-2022 Ambulatory Visit Summary SUJATA REYNA :1975 Visit Date:09/04/2022 Ambulatory Visit Instructions Your Diagnosis BPH with urinary obstruction Impotence Glycosuria Tests Performed Urnls Dip Stick Auto w/o Microscopy POC [id number] Your Care Team Attending Physician - Benton [...] Benton [place] Where: [facility] Covid-19 PCR (CVDTBH)on 08-26 SARS-CoV-2 (COVID-19) RNA THONG+probe Ql (Unsp spec) Not detected Normal NOT DETECTED [facility] Comment on above: Result Comment: When diagnostic [...] for this test is supported by the [place] Health and Human Service's declaration that [...] #### H STROPN, TSH, BNP, BMP #### [facility] [address] [address] [address] Ivan Seo Patient Educationon 09-05-19 23 [...] Follow these instructions at home: ? Take [id number] and prescription medicines only as told by [...] You d (more content not included)... Normal [facility] Office/Clinic Noteon 09-04-2022 Urology Office/Clinic [...] continue medication management, refill sent today to [facility] in [place]. Follow up in 1 year w/ PSA. [...] Information SIDDHARTHA MOLINA, Benton Zurita, URL [address] [id number]- Additional Instructions: 1 year w/ PSA Patient Education Benign Prostatic Hyperplasia Julia Arechiga, personally scribed for Dr. Carl on 09/04/2022 [...] Protein Urine Dipstick: Trace (09/04/22 08:22:00) Specific [place] Urine Dipstick: 1.015 (09/04/22 08:22:00) Urine Appearance Urine Dipstick: Clear (09/04/22 (more content not included)... Normal [facility] Comment on above: Result Comment: Elec tronically Signed By: Benton CARL MD\.br\Date and Time Signed: 09/04/22 09:21 EST\.br\Electronically Co-Signed By: Julia [email or web address].[email or web address]\Date and Time Co-Signed: 09/04/22 09:17 EST 36on [...] and Entresto bid. Please advise. Thanks. Normal [facility] BASIC METABOLIC PANELon 03-0 Anion gap [Moles/Vol] 11 mmol/L Normal - [facility] Comment on above: Performed By: #### L [id number] ####[facility] ([facility])[address] [place] [address] Calcium [Mass/Vol] 9.4 mg/dL Normal 8.6-10.3 [facility] Comment on above: Performed By: #### L [id number] ####[facility] ([facility])[address] [place] [address] Chloride [Moles/Vol] 102 mmol/L Normal 98-107 [facility] Comment on above: Performed By: #### L [id number] ####[facility] ([facility])[address] [place] [address] CO2 [Moles/Vol] 27 mmol/L Normal - [facility] Comment on above: Performed By: #### L [id number] ####[facility] ([facility])[address] [place] [address] Creatinine [Mass/Vol] 0.83 mg/dL Normal 0.70-1.30 [facility] Comment on above: Performed By: #### L [id number] ####[facility] ([facility])[address] [place] [address] GLOMERULAR FILTRATION RATE ML/MIN/1.73 SQ M.PREDICTED 108.0 mL/min/1.73m*2 Normal >60.0 [facility] Comment on above: Result Comment: The [facility]???s estimated glomerular filtration rate [...] of individuals. Performed By: #### L [id number] ####[facility] ([facility])[address] [place] [address] Glucose [Mass/Vol] 87 mg/dL Normal 70-100 [facility] Comment on above: Performed By: #### L [id number] ####[facility] ([facility])[address] [place] [address] Potassium [Moles/Vol] 3.7 mmol/L Normal 3.5-5.1 [facility] Comment on above: Performed By: #### L [id number] ####[facility] ([facility])[address] [place] [address] Sodium [Moles/Vol] 136 mmol/L Normal 136-145 [facility] Comment on above: Performed By: #### L [id number] ####[facility] ([facility])[address] [place] [address] Urea nitrogen [Mass/Vol] 13 mg/dL Normal 7-25 [facility] Comment on above: Performed By: #### L [id number] ####[facility] ([facility])[address] [place] [address] UREA NITROGEN/CREATININE (MASS RATIO) IN SER/PLAS 15.7 Normal [facility] Comment on above: Performed By: #### L [id number] ####[facility] ([facility])[address] [place] [address] CBCon 09-02-2022 Erythrocyte distribution width (RBC) [Ratio] 12.9 % Normal 11.5-15.0 [facility] Comment on above: Performed By: #### L [id number] #### [facility] ([facility]) [address] [place] [address] ERYTHROCYTE MEAN CORPUSCULAR HEMOGLOBIN CONCENTRATION (G/DL) BY AUTOMATED 34.8 g/dL Normal 32.0-35.0 [facility] Comment on above: Performed By: #### L [id number] #### [facility] ([facility]) [address] [place] [id number] Hematocrit (Bld) [Volume fraction] 42.3 % Normal 39.0-55.0 [facility] Comment on above: Performed By: #### L [id number] #### [facility] ([facility]) [address] [place] [id number] Hemoglobin (Bld) [Mass/Vol] 14.7 g/dL Normal 13.0-17.0 [facility] Comment on above: Performed By: #### L [id number] #### [facility] ([facility]) [address] [place] [id number] MCH (RBC) [Entitic mass] 30.7 pg Normal 27.0-33.0 [facility] Comment on above: Performed By: #### L [id number] #### [facility] ([facility]) [address] [place] [address] MCV (RBC) [Entitic vol] 88.3 fL Normal 82.0-98.0 [facility] Comment on above: Performed By: #### L [id number] #### [facility] ([facility]) [address] [place] [address] PLATELETS (10*3/UL) IN BLOOD AUTOMATED COUNT 238 10*3/uL Normal 150-400 [facility] Comment on above: Performed By: #### L [id number] #### [facility] ([facility]) [address] [place] [address] RBC (Bld) [#/Vol] 4.79 10*6/uL Normal 4.20-5.70 [facility] Comment on above: Performed By: #### L [id number] #### [facility] ([facility]) [address] [place] [address] WBC (Bld) [#/Vol] 7.90 10*3/uL Normal 4.00-10.60 [facility] [facility] Comment on above: Performed By: #### L [id number] #### [facility] ([facility]) [address] [place] [address] Orders Onlyon 09-02-2022 Orders Only [id number] Sujata Reyna 1975 M Date Provider Department Center 09/02/2022 ISA LOO MC ALEJANDRINA [place] No family history on file [facility] 2022 30 Problem: Pain - Adul t [...] goals for the shift include VSS Normal [facility] NURSNOTEon 2022 NURSNOTE CV NCDR CATHPCI V5 COLLECTION FORM [facility] B-TYPE NATRIURETIC PEPTIDEon 08-31-2022 Natriuretic peptide B (Bld) [Mass/Vol] 49 pg/mL Normal 0-100 [facility] Comment on above: Performed By: #### L [id number] ####[facility] ([facility])[address] [place] [address] HPon 08-31-2022 HP H&P reviewed. The patient was examined and there are no changes to the H&P. [facility] NURSNOTEon 08-31-2022 NURSNOTE [facility] notified report ing nurse that patient had a heart rate of 177 with PSVT. Patient stated he felt flutters in his chest twice while sitting on the side of the bed. Doctors orders will continue to be followed. [facility] 08-30-2022 30 The patient is Moderately Stable - Low risk of patient condition declining or worsening The patient's goals for the shift include comfort The clinical goals for the shift include VSS Problem: Pain - Adult Goal: Verbalizes/displays adequate comfort level or baseline comfort level Outcome: Progressing Problem: Safety - Adult Goal: Free from fall injury Outcome: Progressing Normal [facility] 30 The patient is [...] and maintained or improved Outcome: Progressing Normal [facility] 30 The patient is [...] and behaviors that affect risk of falls [place] fall precautions as indicated by assessment Educate [...] and maintained or improved Outcome: Progressing Normal [facility] 30on 08-29-2022 30 The [...] and maintained or improved Outcome: Progressing Normal [facility] CONSULTon 08-29-2022 CONSULT --- [...] sweating. He was evaluated in ED at [facility]- was noted on ECG to [...] w/o reversible ischemia. He was sent to [facility] for further management and coronary angiography. Past [...] Units subcutaneous q12h VIRI 5,000 Units at 08/29/22921 losartan 25 mg oral Daily 25 mg [...] General: Norm (more content not included)... Normal [facility] HPon 08-29-2022 HP --- [...] sweating. He was evaluated in ED at [facility]- was noted on ECG to [...] w/o reversible ischemia. He was sent to [facility] for further management and coronary angiography. Past [...] ???F) Temporal 61 16 95 % -- 08/28/222104 126/71 36.5 ???C (97.7 ???F) Temporal 64 [...] General: Norm (more content not included)... Normal [facility] NURSNOTEon 08-29-2022 NURSNOTE Patient complaining of chest pain, cardiology notified. Cardiology also notified of patient's telemetry changes this AM. States will see him and let you know. RN will continue to monitor. Normal [facility] 30on 08-28-2022 30 The [...] and maintained or improved Outcome: Progressing Normal [facility] 30 The patient is Moderately Stable - Low risk of patient condition declining or worsening The patient's goals for the shift include no pain The clinical goals for the shift include VSS Normal [facility] APTTon 08-28-2022 ACTIVATED PARTIAL THROMBOPLASTIN TIME IN PPP BY COAGULATION ASSAY 26.7 Seconds Normal 25.0-35.0 [facility] Comment on above: Performed By: #### L [id number] ####[facility] ([facility])[address] [place] [address] B-TYPE NATRIURETIC PEPTIDEon 08-28-2022 Natriuretic peptide B (Bld) [Mass/Vol] 23 pg/mL Normal 0-100 [facility] Comment on above: Performed By: #### L [id number] #### [facility] ([facility]) [address] [place] [address] CBC WITH AUTO DIFFERENTIALon 08-28-2022 Basophils (Bld) [#/Vol] 0.05 10*3/uL Normal 0.00-0.20 [facility] Comment on above: Performed By: #### L [id number] #### [facility] ([facility]) [address] [place] [address] Basophils/100 WBC (Bld) 0.7 % Normal 0.0-1.0 [facility] Comment on above: Performed By: #### L [id number] #### [facility] ([facility]) [address] [place] [address] Eosinophils (Bld) [#/Vol] 0.15 10*3/uL Normal 0.00-0.50 [facility] Comment on above: Performed By: #### L [id number] #### [facility] ([facility]) [address] [place] [address] Eosinophils/100 WBC (Bld) 2.0 % Normal 0.0-6.0 [facility] Comment on above: Performed By: #### L [id number] #### [facility] ([facility]) [address] [place] [id number] Erythrocyte distribution width (RBC) [Ratio] 12.8 % Normal 11.5-15.0 [facility] Comment on above: Performed By: #### L [id number] #### [facility] ([facility]) [address] [place] [id number] ERYTHROCYTE MEAN CORPUSCULAR HEMOGLOBIN CONCENTRATION (G/DL) BY AUTOMATED 33.5 g/dL Normal 32.0-35.0 [facility] Comment on above: Performed By: #### L [id number] #### [facility] ([facility]) [address] [place] [id number] Hematocrit (Bld) [Volume fraction] 41.8 % Normal 39.0-55.0 [facility] Comment on above: Performed By: #### L [id number] #### [facility] ([facility]) [address] [place] [id number] Hemoglobin (Bld) [Mass/Vol] 14.0 g/dL Normal 13.0-17.0 [facility] Comment on above: Performed By: #### L [id number] #### [facility] ([facility]) [address] [place] [id number] Immature granulocytes (Bld) [#/Vol] 0.04 10*3/uL Normal 0.00-0.20 [facility] Comment on above: Performed By: #### L [id number] #### [facility] ([facility]) [address] [place] [id number] Immature granulocytes/100 WBC (Bld) 0.5 % Normal 0.0-1.0 [facility] Comment on above: Performed By: #### L [id number] #### [facility] ([facility]) [address] [place] [id number] Lymphocytes (Bld) [#/Vol] 1.75 10*3/uL Normal 1.20-4.00 [facility] Comment on above: Performed By: #### L [id number] #### [facility] ([facility]) [address] [place] [address] Lymphocytes/100 WBC (Bld) 23.1 % Normal 20.0-45.0 [facility] Comment on above: Performed By: #### L [id number] #### [facility] ([facility]) [address] [place] [address] MCH (RBC) [Entitic mass] 30.5 pg Normal 27.0-33.0 [facility] Comment on above: Performed By: #### L [id number] #### [facility] ([facility]) [address] [place] [address] MCV (RBC) [Entitic vol] 91.1 fL Normal 82.0-98.0 [facility] Comment on above: Performed By: #### L [id number] #### [facility] ([facility]) [address] [place] [id number] Monocytes (Bld) [#/Vol] 0.66 10*3/uL Normal 0.10-1.00 [facility] Comment on above: Performed By: #### L [id number] #### [facility] ([facility]) [address] [place] [address] Monocytes/100 WBC (Bld) 8.7 % Normal 5.0-12.0 [facility] Comment on above: Performed By: #### L [id number] #### [facility] ([facility]) [address] [place] [address] Neutrophils (Bld) [#/Vol] 4.91 10*3/uL Normal 1.60-7.60 [facility] Comment on above: Performed By: #### L [id number] #### [facility] ([facility]) [address] [place] [address] Neutrophils/100 WBC (Bld) 65.0 % Normal 40.0-72.0 [facility] Comment on above: Performed By: #### L [id number] #### [facility] ([facility]) [address] [place] [id number] NRBC (PER 100 WBCS) BY AUTOMATED COUNT 0.0 % Normal 0.0-0.0 [facility] Comment on above: Performed By: #### L [id number] #### [facility] ([facility]) [address] [place] [id number] PLATELETS (10*3/UL) IN BLOOD AUTOMATED COUNT 293 10*3/uL Normal 150-400 [facility] Comment on above: Performed By: #### L [id number] #### [facility] ([facility]) [address] [place] [address] RBC (Bld) [#/Vol] 4.59 10*6/uL Normal 4.20-5.70 [facility] Comment on above: Performed By: #### L [id number] #### [facility] ([facility]) [address] [place] [address] WBC (Bld) [#/Vol] 7.56 10*3/uL Normal 4.00-10.60 [facility] Comment on above: Performed By: #### L [id number] #### [facility] ([facility]) [address] [place] [address] COMPREHENSIVE METABOLIC PANE Massimo 08-28-2022 Albumin [Mass/Vol] 4.6 g/dL Normal 3.5-5.7 [facility] Comment on above: Performed By: #### L [id number] #### [facility] ([facility]) [address] [place] [address] ALP [Catalytic activity/Vol] 95 U/L Normal 34-104 [facility] Comment on above: Performed By: #### L [id number] #### [facility] ([facility]) [address] [place] [address] ALT [Catalytic activity/Vol] 75 U/L High 7-52 [facility] Comment on above: Performed By: #### L [id number] #### [facility] ([facility]) [address] [place] [address] Anion gap [Moles/Vol] 12 mmol/L Normal 7-20 [facility] Comment on above: Performed By: #### L [id number] #### [facility] ([facility]) [address] [place] [address] AST [Catalytic activity/Vol] 28 U/L Normal 13-39 [facility] Comment on above: Performed By: #### L [id number] #### [facility] ([facility]) [address] [place] [address] Bilirubin [Mass/Vol] 0.7 mg/dL Normal 0.3-1.0 [facility] Comment on above: Performed By: #### L [id number] #### [facility] ([facility]) [address] [place] [address] Calcium [Mass/Vol] 9.8 mg/dL Normal 8.6-10.3 [facility] Comment on above: Performed By: #### L [id number] #### [facility] ([facility]) [address] [place] [address] Chloride [Moles/Vol] 104 mmol/L Normal 98-107 [facility] Comment on above: Performed By: #### L [id number] #### [facility] ([facility]) [address] [place] [address] CO2 [Moles/Vol] 27 mmol/L Normal 21-31 [facility] Comment on above: Performed By: #### L [id number] #### [facility] ([facility]) [address] [place] [address] Creatinine [Mass/Vol] 0.82 mg/dL Normal 0.70-1.30 [facility] Comment on above: Performed By: #### L [id number] #### [facility] ([facility]) [address] [place] [address] GLOMERULAR FILTRATION RATE ML/MIN/1.73 SQ M.PREDICTED 109.0 mL/min/1.73m*2 Normal >60.0 [facility] Comment on above: Result Comment: The [facility]???s estimated glomerular filtration rate [...] individuals. Performed By: #### L [id number] #### [facility] ([facility]) [address] [place] [address] Glucose [Mass/Vol] 77 mg/dL Normal 70-100 [facility] Comment on above: Performed By: #### L [id number] #### [facility] ([facility]) [address] [place] [address] Potassium [Moles/Vol] 3.7 mmol/L Normal 3.5-5.1 [facility] Comment on above: Performed By: #### L [id number] #### [facility] ([facility]) [address] [place] [address] Protein [Mass/Vol] 7.9 g/dL Normal 6.0-8.3 [facility] Comment on above: Performed By: #### L [id number] #### [facility] ([facility]) [address] [place] [address] Sodium [Moles/Vol] 139 mmol/L Normal 136-145 [facility] Comment on above: Performed By: #### L [id number] #### [facility] ([facility]) [address] [place] [address] Urea nitrogen [Mass/Vol] 11 mg/dL Normal 7-25 [facility] Comment on above: Performed By: #### L [id number] #### [facility] ([facility]) [address] [place] [address] UREA NITROGEN/CREATININE (MASS RATIO) IN SER/PLAS 13.4 Normal [facility] Comment on above: Performed By: #### L [id number] #### [facility] ([facility]) [address] [place] [address] EDPROVon 08-28-2022 EDPROV HPI Chief Complaint Patient presents with Chest Pain Pt from home to [facility] with c/o generalized chest pain x2 weeks. Cardiology called on this pt. He had an abnormal stress test at [place] yesterday. Pt reports lightheadedness and mild SOB [...] Diagnoses as of 08/28/22 1527 Unstable angina ([facility]) Medical Decision Making Attestation: I performed a history and physical exam on this patient and discussed his or her management with the resident. I reviewed the resident's note and agree with the documented findings and plan of care with the following exceptions: Provider Statement ANEESH: Provider Statement [facility] (more content not included)... Normal [facility] MAGNESIUMon 08-28-2022 Magnesium [Mass/Vol] 2.1 mg/dL Normal 1.9-2.7 [facility] Comment on above: Performed By: #### L [id number] #### [facility] ([facility]) [address] [place] [address] Office Visiton 08-28-2022 Follow-up visit [id number] Sujata Reyna 1975 M Date Provider Department Center 08/28/2022 Keshav-ISA RINCON CARD [facility] No family history on file Level of Service:[address] [place] OFFICE/OUTPATIENT [facility] 60-74 MINUTES Reason for Visit and Comments: Establish Care [42] - Patient had a stress test 08/27/2022 and failed the test Normal [facility] PROTIME-INRon 08-28-2022 INR IN PPP BY COAGULATION ASSAY 1.08 Normal 0.90-1.10 [facility] Comment on above: Result [...] 1995;108:[id number]. Performed By: #### L [id number] #### [facility] ([facility]) [address] [place] [address] PROTHROMBIN TIME (PT) IN PPP BY COAGULATION ASSAY 13.9 Seconds Normal 12.3-14.8 [facility] Comment on above: Performed By: #### L [id number] #### [facility] ([facility]) [address] [place] [address] TROPONIN Ion 08-28-2022 Troponin I.cardiac [Mass/Vol] 0.00 ng/mL Normal 0.00-0.04 [facility] Comment on above: Performed By: #### L [id number] #### [facility] ([facility]) [address] [place] [address] NM STRESS/REST MULTIon 08-27 NM STRESS/REST MULTI Patient: SUJATA REYNA Exam Date: 08/27/2022 : 1975 Gender:M Ordering : DR JOSH BACH . Admission #: [id number] Family : Order #: [id number] CLICK HERE TO VIEW EXAM RADIOLOGY REPORT [...] anteroseptal. Basal inferoseptal. Basal inferior. Mid-inferoseptal. Mid-inferior. Mathews. SIZE: Large (5 or more segments). SEVERITY: [...] MD on 08/27/2022 at 15:55 Normal [facility] CBC AUTO DIFFon 08-20-2022 BASO # 0.0 103/ul Normal 0.0-0.1 [facility] Comment on above: Performed By: #### M G, BMP #### [facility] [address] [place] [address] Dr. Ivan Seo Basophils/100 WBC (Bld) 0.5 % Normal 0.2-2.0 [facility] Comment on above: Performed By: #### M G, BMP #### [facility] [address] [place] [address] Dr. Ivan Seo EO # 0.2 103/ul Normal 0.0-0.7 [facility] Comment on above: Performed By: #### M G, BMP #### [facility] [address] [address] [address] Ivan Seo Eosinophils/100 WBC (Bld) 2.9 % Normal 0.9-7.0 [facility] Comment on above: Performed By: #### M G, BMP #### [facility] [address] [place] [address] Dr. Ivan Seo Erythrocyte distribution width (RBC) [Ratio] 13.0 % Normal 11.0-15.0 [facility] Comment on above: Performed By: #### M G, BMP #### [facility] [address] [place] [address] Dr. Ivan Seo Hematocrit (Bld) [Volume fraction] 41.4 % Critically low 42.0-54.0 [facility] Comment on above: Performed By: #### M G, BMP #### [facility] [address] [place] [address] Dr. Ivan Seo Hemoglobin (Bld) [Mass/Vol] 13.9 g/dL Critically low 14.0-18.0 [facility] Comment on above: Performed By: #### M G, BMP #### [facility] [address] [place] [address] Dr. Ivan Seo IG # 0.04 10e3/ul Critically high 0.00-0.03 [facility] Comment on above: Performed By: #### M G, BMP #### [facility] [address] [place] [address] Dr. Ivan Seo IG % 0.5 % Normal 0.0-0.5 [facility] Comment on above: Performed By: #### M G, BMP #### [facility] [address] [place] [address] Dr. Ivan Seo LYMPH # 2.2 103/ul Normal 1.2-3.8 [facility] Comment on above: Performed By: #### M G, BMP #### [facility] [address] [place] [address] Dr. Ivan Seo Lymphocytes/100 WBC (Bld) 29.2 % Normal 20.5-60.0 [facility] Comment on above: Performed By: #### M G, BMP #### [facility] [address] [place] [address] Dr. Ivan Seo MANUAL DIFF REQ NO Normal [facility] Comment on above: Performed By: #### M G, BMP #### [facility] [address] [place] [address] Dr. Ivan Seo MCH (RBC) [Entitic mass] 30.5 pg Normal 25.9-34.0 [facility] Comment on above: Performed By: #### M G, BMP #### [facility] [address] [place] [address] Dr. Ivan Seo MCHC (RBC) [Mass/Vol] 33.6 g/dL Normal 29.9-35.2 [facility] Comment on above: Performed By: #### M G, BMP #### [facility] [address] [place] [address] Dr. Ivan Seo MCV (RBC) [Entitic vol] 91.0 fL Normal 80.0-94.0 [facility] Comment on above: Performed By: #### M G, BMP #### [facility] [address] [place] [address] Dr. Ivan Seo MONO # 0.8 103/ul Normal 0.3-0.8 [facility] Comment on above: Performed By: #### M G, BMP #### [facility] [address] [place] [address] Dr. Ivan Seo Monocytes/100 WBC (Bld) 10.5 % Normal 1.7-12.0 [facility] Comment on above: Performed By: #### M G, BMP #### [facility] [address] [place] [address] Dr. Ivan Seo NEUT # 4.3 103/ul Normal 1.4-6.5 [facility] Comment on above: Performed By: #### M G, BMP #### [facility] [address] [place] [address] Dr. Ivan Seo Neutrophils/100 WBC (Bld) 56.4 % Normal 43.0-75.0 [facility] Comment on above: Performed By: #### M G, BMP #### [facility] [address] [place] [address] Dr. Ivan Seo Platelet mean volume (Bld) [Entitic vol] 9.3 fL Critically low 9.5-13.5 [facility] Comment on above: Performed By: #### M G, BMP #### [facility] [address] [place] [address] Dr. Ivan Seo PLT 264 103/ul Normal 150-450 [facility] Comment on above: Performed By: #### M G, BMP #### [facility] [address] [place] [address] Dr. Ivan Seo RBC 4.55 106/ul Critically low 4.70-6.10 [facility] Comment on above: Performed By: #### M G, BMP #### [facility] [address] [place] [address] Dr. Ivan Seo WBC 7.7 103/ul Normal 4.0-11.0 [facility] Comment on above: Performed By: #### M G, BMP #### [facility] [address] [place] [address] Dr. Ivan Seo MAGNESIUMon 08-20-2022 Magnesium [Mass/Vol] 2.0 mg/dL Normal 1.8-2.4 [facility] Comment on above: Performed By: #### M G, BMP #### [facility] [address] [place] [address] Dr. Ivan Seo PROF CHEM 8 (BAS METB)on Anion gap [Moles/Vol] 12.9 mmol/L Normal [facility] Comment on above: Performed By: #### M G, BMP #### [facility] [address] [place] [address] Dr. Ivan Seo Calcium [Mass/Vol] 9.0 mg/dL Normal 8.5-10.1 [facility] Comment on above: Performed By: #### Neelima G, BMP #### [facility] [address] [place] [address] Dr. Ivan Seo Chloride [Moles/Vol] 104 mmol/L Normal 98-107 [facility] Comment on above: Performed By: #### M G, BMP #### [facility] [address] [place] [address] Dr. Ivan Seo CO2 [Moles/Vol] 24.9 mmol/L Normal 21.0-32.0 [facility] Comment on above: Performed By: #### M G, BMP #### [facility] [address] [place] [address] Dr. Ivan Seo Creatinine [Mass/Vol] 0.82 mg/dL Normal 0.70-1.30 [facility] Comment on above: Performed By: #### M G, BMP #### [facility] [address] [place] [address] Dr. Ivan Seo EGFR-AF BARBADIAN >60 Normal >=60 [facility] Comment on above: Performed By: #### M G, BMP #### [facility] [address] [address] [address] Ivan Seo EGFR-NON AF BARBADIAN >60 Normal >=60 [facility] Comment on above: Performed By: #### M G, BMP #### [facility] [address] [address] [address] Ivan Seo Glucose [Mass/Vol] 94 mg/dL Normal 74-106 [facility] Comment on above: Performed By: #### M G, BMP #### [facility] [address] [place] [address] Dr. Ivan Seo Potassium [Moles/Vol] 3.8 mmol/L Normal 3.5-5.1 [facility] Comment on above: Performed By: #### M G, BMP #### [facility] [address] [place] [address] Dr. Ivan Seo Sodium [Moles/Vol] 138 mmol/L Normal 136-145 [facility] Comment on above: Performed By: #### M G, BMP #### [facility] [address] [place] [address] Dr. Ivan Seo Urea nitrogen [Mass/Vol] 11.0 mg/dL Normal 7.0-18.0 [facility] Comment on above: Performed By: #### M G, BMP #### [facility] [address] [address] [address] Ivan Seo Urea nitrogen/Creatinine [Mass ratio] 13.4 mg/mg Normal [facility] Comment on above: Performed By: #### M G, BMP #### [facility] [address] [place] [address] Dr. Ivan Seo TROPONIN, HIGH SENSITIVITYon 08-20-2022 HSTROP 8.3 pg/mL Normal 4.0-76.1 [facility] Comment on above: Result Comment: CUT- OFF POINTS HAVE BEEN ESTABLISHED BASED ON THE FOURTH UNIVERSAL DEFINITIONS OF MYOCARDIAL INFARCTION. THE UPPER REFERENCE LIMIT (URL) OF TROPONIN, DEFINED THE 99TH PERCENTILE OF cTnI DISTRIBUTION IN A REFERENCE POPULATION, HAS BEEN CONFIRMED THE DECISION THRESHOLD FOR PR DIAGNOSIS. Performed By: #### H STROPN, TSH, BNP, BMP #### [facility] [address] [place] [address] Dr. Ivan Seo CARDIAC EDWARDO 3-6on 3 CK [Catalytic activity/Vol] 110 U/L Normal 39-308 [facility] Comment on above: Performed By: #### H STROPN, TSH, BNP, BMP #### [facility] [address] [place] [address] Dr. Ivan Seo CK.MB [Mass/Vol] 0.77 ng/mL Normal <=3.60 [facility] Comment on above: Performed By: #### H STROPN, TSH, BNP, BMP #### [facility] [address] [place] [address] Dr. Ivan Seo HSTROP 6.1 pg/mL Normal 4.0-76.1 [facility] Comment on above: Result Comment: CUT- OFF POINTS HAVE BEEN ESTABLISHED BASED ON THE FOURTH UNIVERSAL DEFINITIONS OF MYOCARDIAL INFARCTION. THE UPPER REFERENCE LIMIT (URL) OF TROPONIN, DEFINED THE 99TH PERCENTILE OF cTnI DISTRIBUTION IN A REFERENCE POPULATION, HAS BEEN CONFIRMED THE DECISION THRESHOLD FOR PR DIAGNOSIS. Performed By: #### H STROPN, TSH, BNP, BMP #### [facility] [address] [place] [address] Dr. Ivan Seo CK [Catalytic activity/Vol] 113 U/L Normal 39-308 [facility] Comment on above: Performed By: #### H STROPN, TSH, BNP, BMP #### [facility] [address] [place] [address] Dr. Ivan Seo CK.MB [Mass/Vol] 0.62 ng/mL Normal <=3.60 [facility] Comment on above: Performed By: #### H STROPN, TSH, BNP, BMP #### [facility] [address] [place] [address] Dr. Ivan Seo HSTROP 7.4 pg/mL Normal 4.0-76.1 [facility] Comment on above: Result Comment: CUT- OFF POINTS HAVE BEEN ESTABLISHED BASED ON THE FOURTH UNIVERSAL DEFINITIONS OF MYOCARDIAL INFARCTION. THE UPPER REFERENCE LIMIT (URL) OF TROPONIN, DEFINED THE 99TH PERCENTILE OF cTnI DISTRIBUTION IN A REFERENCE POPULATION, HAS BEEN CONFIRMED THE DECISION THRESHOLD FOR PR DIAGNOSIS. Performed By: #### H STROPN, TSH, BNP, BMP #### [facility] [address] [place] [address] Dr. Ivan Seo CBC AUTO DIFFon 08-19-2022 BASO # 0.0 103/ul Normal 0.0-0.1 [facility] Comment on above: Performed By: #### H STROPN, TSH, BNP, BMP #### [facility] [address] [place] [address] Dr. Ivan Seo Basophils/100 WBC (Bld) 0.5 % Normal 0.2-2.0 [facility] Comment on above: Performed By: #### H STROPN, TSH, BNP, BMP #### [facility] [address] [place] [address] Dr. Ivan Seo EO # 0.2 103/ul Normal 0.0-0.7 [facility] Comment on above: Performed By: #### H STROPN, TSH, BNP, BMP #### [facility] [address] [place] [address] Dr. Ivan Seo Eosinophils/100 WBC (Bld) 2.9 % Normal 0.9-7.0 [facility] Comment on above: Performed By: #### H STROPN, TSH, BNP, BMP #### [facility] [address] [place] [address] Dr. Ivan Seo Erythrocyte distribution width (RBC) [Ratio] 12.7 % Normal 11.0-15.0 [facility] Comment on above: Performed By: #### H STROPN, TSH, BNP, BMP #### [facility] [address] [place] [address] Dr. Ivan Seo Hematocrit (Bld) [Volume fraction] 40.2 % Critically low 42.0-54.0 [facility] Comment on above: Performed By: #### H STROPN, TSH, BNP, BMP #### [facility] [address] [address] [address] Ivan Seo Hemoglobin (Bld) [Mass/Vol] 13.6 g/dL Critically low 14.0-18.0 [facility] Comment on above: Performed By: #### H STROPN, TSH, BNP, BMP #### [facility] [address] [address] [address] Ivan Seo IG # 0.06 10e3/ul Critically high 0.00-0.03 [facility] Comment on above: Performed By: #### H STROPN, TSH, BNP, BMP #### [facility] [address] [place] [address] Dr. Ivan Seo IG % 0.8 % Critically high 0.0-0.5 [facility] Comment on above: Performed By: #### H STROPN, TSH, BNP, BMP #### [facility] [address] [address] [address] Ivan Seo LYMPH # 2.0 103/ul Normal 1.2-3.8 [facility] Comment on above: Performed By: #### H STROPN, TSH, BNP, BMP #### [facility] [address] [address] [address] Ivan Seo Lymphocytes/100 WBC (Bld) 26.9 % Normal 20.5-60.0 [facility] Comment on above: Performed By: #### H STROPN, TSH, BNP, BMP #### [facility] [address] [address] [address] Ivan Seo MANUAL DIFF REQ NO Normal [facility] Comment on above: Performed By: #### H STROPN, TSH, BNP, BMP #### [facility] [address] [place] [address] Dr. Ivan Seo MCH (RBC) [Entitic mass] 30.4 pg Normal 25.9-34.0 [facility] Comment on above: Performed By: #### H STROPN, TSH, BNP, BMP #### [facility] [address] [place] [address] Dr. Ivan Seo MCHC (RBC) [Mass/Vol] 33.8 g/dL Normal 29.9-35.2 [facility] Comment on above: Performed By: #### H STROPN, TSH, BNP, BMP #### [facility] [address] [place] [address] Dr. Ivan Seo MCV (RBC) [Entitic vol] 89.9 fL Normal 80.0-94.0 [facility] Comment on above: Performed By: #### H STROPN, TSH, BNP, BMP #### [facility] [address] [place] [address] Dr. Ivan Seo MONO # 0.8 103/ul Normal 0.3-0.8 [facility] Comment on above: Performed By: #### H STROPN, TSH, BNP, BMP #### [facility] [address] [place] [address] Dr. Ivan Seo Monocytes/100 WBC (Bld) 9.9 % Normal 1.7-12.0 [facility] Comment on above: Performed By: #### H STROPN, TSH, BNP, BMP #### [facility] [address] [place] [address] Dr. Ivan Seo NEUT # 4.5 103/ul Normal 1.4-6.5 [facility] Comment on above: Performed By: #### H STROPN, TSH, BNP, BMP #### [facility] [address] [place] [address] Dr. Ivan Seo Neutrophils/100 WBC (Bld) 59.0 % Normal 43.0-75.0 [facility] Comment on above: Performed By: #### H STROPN, TSH, BNP, BMP #### [facility] [address] [place] [address] Dr. Ivan Seo Platelet mean volume (Bld) [Entitic vol] 9.1 fL Critically low 9.5-13.5 [facility] Comment on above: Performed By: #### H STROPN, TSH, BNP, BMP #### [facility] [address] [address] [address] Ivan Seo PLT 245 103/ul Normal 150-450 [facility] Comment on above: Performed By: #### H STROPN, TSH, BNP, BMP #### [facility] [address] [address] [address] Ivan Seo RBC 4.47 106/ul Critically low 4.70-6.10 [facility] Comment on above: Performed By: #### H STROPN, TSH, BNP, BMP #### [facility] [address] [address] [address] Ivan Seo WBC 7.6 103/ul Normal 4.0-11.0 [facility] Comment on above: Performed By: #### H STROPN, TSH, BNP, BMP #### [facility] [address] [place] [address] Dr. Ivan Seo DRUG SCREEN RAPID (URINE)on 08-19-2022 AMP Negative Normal NEGATIVE [facility] Comment on above: Performed By: #### H STROPN, TSH, BNP, BMP #### [facility] [address] [address] [address] Ivan Seo BAR Negative Normal NEGATIVE [facility] Comment on above: Performed By: #### H STROPN, TSH, BNP, BMP #### [facility] [address] [address] [address] Ivan Seo BUP Negative Normal NEGATIVE [facility] Comment on above: Performed By: #### H STROPN, TSH, BNP, BMP #### [facility] [address] [address] [address] Ivan Seo BZO Negative Normal NEGATIVE [facility] Comment on above: Performed By: #### H STROPN, TSH, BNP, BMP #### [facility] [address] [place] [address] Dr. Ivan Seo VONNIE Negative Normal NEGATIVE [facility] Comment on above: Performed By: #### H STROPN, TSH, BNP, BMP #### [facility] [address] [address] [address] Ivan Seo CUT-OFFS SEE BELOW Normal [facility] Comment on above: Result Comment: AMP (Amphetamine): [...] #### H STROPN, TSH, BNP, BMP #### [facility] [address] [place] [address] Dr. Ivan Seo DRUG CUT HEADER DRUG CLASS TEST SYST EM CUT-OFF CONCENTRATIONS ARE FOLLOWS: Normal [facility] Comment on above: Performed By: #### H STROPN, TSH, BNP, BMP #### [facility] [address] [place] [address] Dr. Ivan Seo mAMP Negative Normal NEGATIVE [facility] Comment on above: Performed By: #### H STROPN, TSH, BNP, BMP #### [facility] [address] [place] [address] Dr. Ivan Seo MTD Negative Normal NEGATIVE [facility] Comment on above: Performed By: #### H STROPN, TSH, BNP, BMP #### [facility] [address] [place] [address] Dr. Ivan Seo OPI Negative Normal NEGATIVE [facility] Comment on above: Performed By: #### H STROPN, TSH, BNP, BMP #### [facility] [address] [place] [address] Dr. Ivan Seo OXY Negative Normal NEGATIVE [facility] Comment on above: Performed By: #### H STROPN, TSH, BNP, BMP #### [facility] [address] [place] [address] Dr. Ivan Seo PCP Negative Normal NEGATIVE [facility] Comment on above: Performed By: #### H STROPN, TSH, BNP, BMP #### [facility] [address] [address] [address] Ivan Seo PPX Negative Normal NEGATIVE [facility] Comment on above: Performed By: #### H STROPN, TSH, BNP, BMP #### [facility] [address] [address] [address] Ivan Seo TCA Negative Normal NEGATIVE [facility] Comment on above: Performed By: #### H STROPN, TSH, BNP, BMP #### [facility] [address] [address] [address] Ivan Seo THC Negative Normal NEGATIVE [facility] Comment on above: Performed By: #### H STROPN, TSH, BNP, BMP #### [facility] [address] [address] [address] Ivan Seo ECHOCARDIO M/2D COMPLETEon 0 08-19-2022 ECHOCARDIO M/2D COMPLETE Patient: SUJATA REYNA Exam Date: 08/19/2022 : 1975 Gender:M Ordering : DR JOSH BACH . Admission #: [id number] Family : Order #: [id number] CLICK HERE TO VIEW EXAM ECHOCARDIOGRAM REPORT [...] Colon M.D. on 08/19/2022 at 12:34 Normal [facility] LIPID PROFILEon 08-19-2022 CHOL-HDL RATIO NORM SEE BELOW Normal [facility] Comment on above: Result Comment: 3.3 - 4.4 LOW RISK 4.4 - 7.1 AVERAGE RISK 7.1 - 11.0 MODERATE RISK >11.0 HIGH RISK Performed By: #### H STROPN, TSH, BNP, BMP #### [facility] [address] [address] [address] Ivan Seo Cholesterol [Mass/Vol] 213 mg/dL Critically high <=200 [facility] Comment on above: Performed By: #### H STROPN, TSH, BNP, BMP #### [facility] [address] [address] [address] Ivan Seo Cholesterol in HDL [Mass/Vol] 40 mg/dL Normal 40-60 [facility] Comment on above: Performed By: #### H STROPN, TSH, BNP, BMP #### [facility] [address] [address] [address] Ivan Seo Cholesterol in LDL [Mass/Vol] 147.0 mg/dL Normal [facility] Comment on above: Performed By: #### H STROPN, TSH, BNP, BMP #### [facility] [address] [address] [address] Ivan Seo Cholesterol.total/Ch olesterol in HDL [Mass ratio] 5.3 {ratio} Normal [facility] Comment on above: Performed By: #### H STROPN, TSH, BNP, BMP #### [facility] [address] [address] [address] Ivan Seo HDL NORMAL > or = 60 mg/dl - LO W CARDIOVASCULAR RISK <40 mg/dl - HIGH CARDIOVASCULAR RISK Normal [facility] Comment on above: Performed By: #### H STROPN, TSH, BNP, BMP #### [facility] [address] [address] [address] Ivan Seo LDL CALC NORMAL SEE BELOW Normal [facility] Comment on above: Result Comment: <100 mg/dl OPTIMAL 100 - 129 mg/dl NEAR OR ABOVE OPTIMAL 130 - 159 mg/dl BORDERLINE HIGH 160 - 189 mg/dl HIGH >190 mg/dl VERY HIGH Performed By: #### H STROPN, TSH, BNP, BMP #### [facility] [address] [address] [address] Ivan Seo Triglyceride [Mass/Vol] 130 mg/dL Normal <=150 [facility] Comment on above: Performed By: #### H STROPN, TSH, BNP, BMP #### [facility] [address] [address] [address] Ivan Seo VLDL CALC 26.0 mg/dL Normal [facility] Comment on above: Performed By: #### H STROPN, TSH, BNP, BMP #### [facility] [address] [address] [address] Ivan Seo MAGNESIUMon 08-19-2022 Magnesium [Mass/Vol] 2.0 mg/dL Normal 1.8-2.4 [facility] Comment on above: Performed By: #### H STROPN, TSH, BNP, BMP #### [facility] [address] [address] [address] Ivan Seo PROF CHEM 8 (BAS METB)on Anion gap [Moles/Vol] 12.5 mmol/L Normal [facility] Comment on above: Performed By: #### H STROPN, TSH, BNP, BMP #### [facility] [address] [address] [address] Ivan Seo Calcium [Mass/Vol] 8.8 mg/dL Normal 8.5-10.1 [facility] Comment on above: Performed By: #### H STROPN, TSH, BNP, BMP #### [facility] [address] [address] [address] Ivan Seo Chloride [Moles/Vol] 104 mmol/L Normal 98-107 [facility] Comment on above: Performed By: #### H STROPN, TSH, BNP, BMP #### [facility] [address] [address] [address] Ivan Seo CO2 [Moles/Vol] 26.4 mmol/L Normal 21.0-32.0 [facility] Comment on above: Performed By: #### H STROPN, TSH, BNP, BMP #### [facility] [address] [address] [address] Ivan Seo Creatinine [Mass/Vol] 0.89 mg/dL Normal 0.70-1.30 [facility] Comment on above: Performed By: #### H STROPN, TSH, BNP, BMP #### [facility] [address] [place] [address] Dr. Ivan Seo EGFR-AF BARBADIAN >60 Normal >=60 [facility] Comment on above: Performed By: #### H STROPN, TSH, BNP, BMP #### [facility] [address] [place] [address] Dr. Ivan Seo EGFR-NON AF BARBADIAN >60 Normal >=60 [facility] Comment on above: Performed By: #### H STROPN, TSH, BNP, BMP #### [facility] [address] [place] [address] Dr. Ivan Seo Glucose [Mass/Vol] 103 mg/dL Normal 74-106 [facility] Comment on above: Performed By: #### H STROPN, TSH, BNP, BMP #### [facility] [address] [address] [address] Ivan Seo Potassium [Moles/Vol] 3.9 mmol/L Normal 3.5-5.1 [facility] Comment on above: Performed By: #### H STROPN, TSH, BNP, BMP #### [facility] [address] [address] [address] Ivan Seo Sodium [Moles/Vol] 139 mmol/L Normal 136-145 [facility] Comment on above: Performed By: #### H STROPN, TSH, BNP, BMP #### [facility] [address] [place] [address] Dr. Ivan Seo Urea nitrogen [Mass/Vol] 12.0 mg/dL Normal 7.0-18.0 [facility] Comment on above: Performed By: #### H STROPN, TSH, BNP, BMP #### [facility] [address] [place] [address] Dr. Ivan Seo Urea nitrogen/Creatinine [Mass ratio] 13.5 mg/mg Normal [facility] Comment on above: Performed By: #### H STROPN, TSH, BNP, BMP #### [facility] [address] [place] [address] Dr. Ivan Seo BNPon 08-18-2022 Natriuretic peptide B (Bld) [Mass/Vol] 77.0 pg/mL Normal <=450.0 [facility] Comment on above: Performed By: #### H STROPN, TSH, BNP, BMP #### [facility] [address] [place] [address] Dr. Ivan Seo CBC AUTO DIFFon 08-18-2022 BASO # 0.0 103/ul Normal 0.0-0.1 [facility] Comment on above: Performed By: #### H STROPN, TSH, BNP, BMP #### [facility] [address] [place] [address] Dr. Ivan Seo Basophils/100 WBC (Bld) 0.4 % Normal 0.2-2.0 [facility] Comment on above: Performed By: #### H STROPN, TSH, BNP, BMP #### [facility] [address] [place] [address] Dr. Ivan Seo EO # 0.2 103/ul Normal 0.0-0.7 [facility] Comment on above: Performed By: #### H STROPN, TSH, BNP, BMP #### [facility] [address] [place] [address] Dr. Ivan Seo Eosinophils/100 WBC (Bld) 2.7 % Normal 0.9-7.0 [facility] Comment on above: Performed By: #### H STROPN, TSH, BNP, BMP #### [facility] [address] [address] [address] Ivan Seo Erythrocyte distribution width (RBC) [Ratio] 12.7 % Normal 11.0-15.0 [facility] Comment on above: Performed By: #### H STROPN, TSH, BNP, BMP #### [facility] [address] [place] [address] Dr. Ivan Seo Hematocrit (Bld) [Volume fraction] 39.8 % Critically low 42.0-54.0 [facility] Comment on above: Performed By: #### H STROPN, TSH, BNP, BMP #### [facility] [address] [place] [address] Dr. Ivan Seo Hemoglobin (Bld) [Mass/Vol] 13.9 g/dL Critically low 14.0-18.0 [facility] Comment on above: Performed By: #### H STROPN, TSH, BNP, BMP #### [facility] [address] [place] [address] Dr. Ivan Seo IG # 0.04 10e3/ul Critically high 0.00-0.03 [facility] Comment on above: Performed By: #### H STROPN, TSH, BNP, BMP #### [facility] [address] [place] [address] Dr. Ivan Seo IG % 0.5 % Normal 0.0-0.5 [facility] Comment on above: Performed By: #### H STROPN, TSH, BNP, BMP #### [facility] [address] [place] [address] Dr. Ivan Seo LYMPH # 2.4 103/ul Normal 1.2-3.8 [facility] Comment on above: Performed By: #### H STROPN, TSH, BNP, BMP #### [facility] [address] [place] [address] Dr. Ivan Seo Lymphocytes/100 WBC (Bld) 29.4 % Normal 20.5-60.0 [facility] Comment on above: Performed By: #### H STROPN, TSH, BNP, BMP #### [facility] [address] [place] [address] Dr. Ivan Seo MANUAL DIFF REQ NO Normal [facility] Comment on above: Performed By: #### H STROPN, TSH, BNP, BMP #### [facility] [address] [place] [address] Dr. Ivan Seo MCH (RBC) [Entitic mass] 31.1 pg Normal 25.9-34.0 [facility] Comment on above: Performed By: #### H STROPN, TSH, BNP, BMP #### [facility] [address] [place] [address] Dr. Ivan Seo MCHC (RBC) [Mass/Vol] 34.9 g/dL Normal 29.9-35.2 [facility] Comment on above: Performed By: #### H STROPN, TSH, BNP, BMP #### [facility] [address] [place] [address] Dr. Ivan Seo MCV (RBC) [Entitic vol] 89.0 fL Normal 80.0-94.0 [facility] Comment on above: Performed By: #### H STROPN, TSH, BNP, BMP #### [facility] [address] [place] [address] Dr. Ivan Seo MONO # 0.8 103/ul Normal 0.3-0.8 [facility] Comment on above: Performed By: #### H STROPN, TSH, BNP, BMP #### [facility] [address] [place] [address] Dr. Ivan Seo Monocytes/100 WBC (Bld) 9.4 % Normal 1.7-12.0 [facility] Comment on above: Performed By: #### H STROPN, TSH, BNP, BMP #### [facility] [address] [place] [address] Dr. Ivan Seo NEUT # 4.8 103/ul Normal 1.4-6.5 [facility] Comment on above: Performed By: #### H STROPN, TSH, BNP, BMP #### [facility] [address] [place] [address] Dr. Ivan Seo Neutrophils/100 WBC (Bld) 57.6 % Normal 43.0-75.0 [facility] Comment on above: Performed By: #### H STROPN, TSH, BNP, BMP #### [facility] [address] [address] [address] Ivan Seo Platelet mean volume (Bld) [Entitic vol] 9.2 fL Critically low 9.5-13.5 [facility] Comment on above: Performed By: #### H STROPN, TSH, BNP, BMP #### [facility] [address] [address] [address] Ivan Seo PLT 262 103/ul Normal 150-450 [facility] Comment on above: Performed By: #### H STROPN, TSH, BNP, BMP #### [facility] [address] [place] [address] Dr. Ivan Seo RBC 4.47 106/ul Critically low 4.70-6.10 [facility] Comment on above: Performed By: #### H STROPN, TSH, BNP, BMP #### [facility] [address] [address] [address] Ivan Seo WBC 8.3 103/ul Normal 4.0-11.0 [facility] Comment on above: Performed By: #### H STROPN, TSH, BNP, BMP #### [facility] [address] [place] [address] Dr. Ivan Seo Covid-19 PCR ([facility])on 07-30 SARS-CoV-2 (COVID-19) RNA THONG+probe Ql (Unsp spec) Not detected Normal NOT DETECTED [facility] Comment on above: Result Comment: When diagnostic [...] for this test is supported by the [place] of Health and Human Service's declaration that [...] #### H STROPN, TSH, BNP, BMP #### [facility] [address] [place] [address] Dr. Ivan Seo FREE T3on 08-18-2022 FREE T3 3.10 pg/mlL Normal 2.18-3.98 [facility] Comment on above: Performed By: #### M G, BMP #### [facility] [address] [place] [address] Dr. Ivan Seo FREE T4on 08-18-2022 Free T4 [Mass/Vol] 0.90 ng/dL Normal 0.76-1.46 [facility] Comment on above: Performed By: #### M G, BMP #### [facility] [address] [place] [address] Dr. Ivan Seo PROF CHEM 8 (BAS METB)on Anion gap [Moles/Vol] 10.4 mmol/L Normal [facility] Comment on above: Performed By: #### H STROPN, TSH, BNP, BMP #### [facility] [address] [place] [address] Dr. Ivan Seo Calcium [Mass/Vol] 9.1 mg/dL Normal 8.5-10.1 [facility] Comment on above: Performed By: #### H STROPN, TSH, BNP, BMP #### [facility] [address] [place] [address] Dr. Ivan Seo Chloride [Moles/Vol] 101 mmol/L Normal 98-107 [facility] Comment on above: Performed By: #### H STROPN, TSH, BNP, BMP #### [facility] [address] [place] [address] Dr. Ivan Seo CO2 [Moles/Vol] 30.1 mmol/L Normal 21.0-32.0 [facility] Comment on above: Performed By: #### H STROPN, TSH, BNP, BMP #### [facility] [address] [place] [address] Dr. Ivan Seo Creatinine [Mass/Vol] 0.97 mg/dL Normal 0.70-1.30 [facility] Comment on above: Performed By: #### H STROPN, TSH, BNP, BMP #### [facility] [address] [address] [address] Ivan Seo EGFR-AF BARBADIAN >60 Normal >=60 [facility] Comment on above: Performed By: #### H STROPN, TSH, BNP, BMP #### [facility] [address] [place] [address] Dr. Ivan Seo EGFR-NON AF BARBADIAN >60 Normal >=60 [facility] Comment on above: Performed By: #### H STROPN, TSH, BNP, BMP #### [facility] [address] [place] [address] Dr. Ivan Seo Glucose [Mass/Vol] 109 mg/dL Critically high 74-106 [facility] Comment on above: Performed By: #### H STROPN, TSH, BNP, BMP #### [facility] [address] [place] [address] Dr. Ivan Seo Potassium [Moles/Vol] 3.5 mmol/L Normal 3.5-5.1 [facility] Comment on above: Performed By: #### H STROPN, TSH, BNP, BMP #### [facility] [address] [place] [address] Dr. Ivan Seo Sodium [Moles/Vol] 138 mmol/L Normal 136-145 [facility] Comment on above: Performed By: #### H STROPN, TSH, BNP, BMP #### [facility] [address] [place] [address] Dr. Ivan Seo Urea nitrogen [Mass/Vol] 17.0 mg/dL Normal 7.0-18.0 [facility] Comment on above: Performed By: #### H STROPN, TSH, BNP, BMP #### [facility] [address] [address] [address] Ivan Seo Urea nitrogen/Creatinine [Mass ratio] 17.5 mg/mg Normal [facility] Comment on above: Performed By: #### H STROPN, TSH, BNP, BMP #### [facility] [address] [address] [address] Ivan Seo TROPONIN, HIGH SENSITIVITYon 08-18-2022 HSTROP 5.7 pg/mL Normal 4.0-76.1 [facility] Comment on above: Result Comment: CUT- OFF POINTS HAVE BEEN ESTABLISHED BASED ON THE FOURTH UNIVERSAL DEFINITIONS OF MYOCARDIAL INFARCTION. THE UPPER REFERENCE LIMIT (URL) OF TROPONIN, DEFINED THE 99TH PERCENTILE OF cTnI DISTRIBUTION IN A REFERENCE POPULATION, HAS BEEN CONFIRMED THE DECISION THRESHOLD FOR PR DIAGNOSIS. Performed By: #### H STROPN, TSH, BNP, BMP #### [facility] [address] [address] [address] Ivan Seo HSTROP 6.8 pg/mL Normal 4.0-76.1 [facility] Comment on above: Result Comment: CUT- OFF POINTS HAVE BEEN ESTABLISHED BASED ON THE FOURTH UNIVERSAL DEFINITIONS OF MYOCARDIAL INFARCTION. THE UPPER REFERENCE LIMIT (URL) OF TROPONIN, DEFINED THE 99TH PERCENTILE OF cTnI DISTRIBUTION IN A REFERENCE POPULATION, HAS BEEN CONFIRMED THE DECISION THRESHOLD FOR PR DIAGNOSIS. Performed By: #### H STROPN, TSH, BNP, BMP #### [facility] [address] [address] [address] Ivan Seo TSHon 08-18-2022 TSH 3.636 uIU/mL Normal 0.358-3.740 [facility] Comment on above: Performed By: #### H STROPN, TSH, BNP, BMP #### [facility] [id number] Ivan Seo XR CHEST 1 Von [...] by: ELENA KNIGHT Date: 2022-08-18 20:09 Normal [facility] Consultation Noteon 06-12-20 Consultation Note [id number]#1.00C D:127 Normal [facility] Lab Reportson 06-12-2022 Lab Reports [id number]#1.00C D:127 Normal [facility] Lab Reports [id number]#1.00C D:127 Normal [facility] Lab Reports [id number]#1.00C D:127 Normal [facility] Patient Correspondenceon Patient Correspondence [id number]#1.00C D:127 Normal [facility] CBC AUTO DIFFon 06-05-2022 BASO # 0.0 103/ul Normal 0.0-0.1 [facility] Comment on above: Performed By: #### H STROPN, TSH, BNP, BMP #### [facility] [address] [address] [address] Ivan Seo Basophils/100 WBC (Bld) 0.5 % Normal 0.2-2.0 [facility] Comment on above: Performed By: #### H STROPN, TSH, BNP, BMP #### [facility] [address] [address] [address] Ivan Seo EO # 0.2 103/ul Normal 0.0-0.7 [facility] Comment on above: Performed By: #### H STROPN, TSH, BNP, BMP #### [facility] [address] [address] [address] Ivan Seo Eosinophils/100 WBC (Bld) 2.1 % Normal 0.9-7.0 [facility] Comment on above: Performed By: #### H STROPN, TSH, BNP, BMP #### [facility] [address] [address] [address] Ivan Seo Erythrocyte distribution width (RBC) [Ratio] 13.1 % Normal 11.0-15.0 [facility] Comment on above: Performed By: #### H STROPN, TSH, BNP, BMP #### [facility] [address] [place] [address] Dr. Ivan Seo Hematocrit (Bld) [Volume fraction] 41.7 % Critically low 42.0-54.0 [facility] Comment on above: Performed By: #### H STROPN, TSH, BNP, BMP #### [facility] [address] [place] [address] Dr. Ivan Seo Hemoglobin (Bld) [Mass/Vol] 14.2 g/dL Normal 14.0-18.0 [facility] Comment on above: Performed By: #### H STROPN, TSH, BNP, BMP #### [facility] [address] [place] [address] Dr. Ivan Seo IG # 0.06 10e3/ul Critically high 0.00-0.03 [facility] Comment on above: Performed By: #### H STROPN, TSH, BNP, BMP #### [facility] [address] [place] [address] Dr. Ivan Seo IG % 0.8 % Critically high 0.0-0.5 [facility] Comment on above: Performed By: #### H STROPN, TSH, BNP, BMP #### [facility] [address] [place] [address] Dr. Ivan Seo LYMPH # 1.8 103/ul Normal 1.2-3.8 [facility] Comment on above: Performed By: #### H STROPN, TSH, BNP, BMP #### [facility] [address] [place] [address] Dr. Ivan Seo Lymphocytes/100 WBC (Bld) 23.4 % Normal 20.5-60.0 [facility] Comment on above: Performed By: #### H STROPN, TSH, BNP, BMP #### [facility] [address] [place] [address] Dr. Ivan Seo MANUAL DIFF REQ NO Normal [facility] Comment on above: Performed By: #### H STROPN, TSH, BNP, BMP #### [facility] [address] [place] [address] Dr. Ivan Seo MCH (RBC) [Entitic mass] 30.8 pg Normal 25.9-34.0 [facility] Comment on above: Performed By: #### H STROPN, TSH, BNP, BMP #### [facility] [address] [place] [address] Dr. Ivan Seo MCHC (RBC) [Mass/Vol] 34.1 g/dL Normal 29.9-35.2 [facility] Comment on above: Performed By: #### H STROPN, TSH, BNP, BMP #### [facility] [address] [place] [address] Dr. Ivan Seo MCV (RBC) [Entitic vol] 90.5 fL Normal 80.0-94.0 [facility] Comment on above: Performed By: #### H STROPN, TSH, BNP, BMP #### [facility] [address] [place] [address] Dr. Ivan Seo MONO # 1.1 103/ul Critically high 0.3-0.8 [facility] Comment on above: Performed By: #### H STROPN, TSH, BNP, BMP #### [facility] [address] [place] [address] Dr. Ivan eSo Monocytes/100 WBC (Bld) 14.2 % Critically high 1.7-12.0 [facility] Comment on above: Performed By: #### H STROPN, TSH, BNP, BMP #### [facility] [address] [place] [address] Dr. Ivan Seo NEUT # 4.4 103/ul Normal 1.4-6.5 [facility] Comment on above: Performed By: #### H STROPN, TSH, BNP, BMP #### [facility] [address] [address] [address] Ivan Seo Neutrophils/100 WBC (Bld) 59.0 % Normal 43.0-75.0 [facility] Comment on above: Performed By: #### H STROPN, TSH, BNP, BMP #### [facility] [address] [address] [address] Ivan Seo Platelet mean volume (Bld) [Entitic vol] 9.2 fL Critically low 9.5-13.5 [facility] Comment on above: Performed By: #### H STROPN, TSH, BNP, BMP #### [facility] [address] [address] [address] Ivan Seo PLT 277 103/ul Normal 150-450 [facility] Comment on above: Performed By: #### H STROPN, TSH, BNP, BMP #### [facility] [address] [place] [address] Dr. Ivan Seo RBC 4.61 106/ul Critically low 4.70-6.10 [facility] Comment on above: Performed By: #### H STROPN, TSH, BNP, BMP #### [facility] [address] [address] [address] Ivan Seo WBC 7.5 103/ul Normal 4.0-11.0 [facility] Comment on above: Performed By: #### H STROPN, TSH, BNP, BMP #### [facility] [address] [address] [address] Ivan Seo FREE T3on 06-05-2022 FREE T3 3.34 pg/mlL Normal 2.18-3.98 [facility] Comment on above: Performed By: #### M G, BMP #### [facility] [address] [address] [address] Ivan Seo GLYCOHEMOGLOBIN A1Con 2021 ADA RECOMMENDATION SEE BELOW Normal [facility] Comment on above: Result Comment: ADA RECOMMENDED LIMIT 4.0 - 6.0 ADA THERAPEUTIC TARGET < 7.0 ACTION SUGGESTED > 7.0 Performed By: #### H STROPN, TSH, BNP, BMP #### [facility] [address] [place] [address] Dr. Ivan Seo Glucose [Mass/Vol] 114 mg/dL Normal [facility] Comment on above: Performed By: #### H STROPN, TSH, BNP, BMP #### [facility] [address] [place] [address] Dr. Ivan Seo HbA1c (Bld) [Mass fraction] 5.6 % Normal 4.5-6.2 [facility] Comment on above: Performed By: #### H STROPN, TSH, BNP, BMP #### [facility] [address] [place] [address] Dr. Ivan Seo LIPID PROFILEon 06-05-2022 CHOL-HDL RATIO NORM SEE BELOW Normal [facility] Comment on above: Result Comment: 3.3 - 4.4 LOW RISK 4.4 - 7.1 AVERAGE RISK 7.1 - 11.0 MODERATE RISK >11.0 HIGH RISK Performed By: #### C MP, TSH, FT3, T4, LIPID #### [facility] [address] [place] [address] Dr. Ivan Seo Cholesterol [Mass/Vol] 207 mg/dL Critically high <=200 [facility] Comment on above: Performed By: #### C MP, TSH, FT3, T4, LIPID #### [facility] [address] [place] [address] Dr. Ivan Seo Cholesterol in HDL [Mass/Vol] 46 mg/dL Normal 40-60 [facility] Comment on above: Performed By: #### C MP, TSH, FT3, T4, LIPID #### [facility] [address] [place] [address] Dr. Ivan Seo Cholesterol in LDL [Mass/Vol] 142.8 mg/dL Normal [facility] Comment on above: Performed By: #### C MP, TSH, FT3, T4, LIPID #### [facility] [address] [place] [address] Dr. Ivan Seo Cholesterol.total/Ch olesterol in HDL [Mass ratio] 4.5 {ratio} Normal [facility] Comment on above: Performed By: #### C MP, TSH, FT3, T4, LIPID #### [facility] [address] [address] [address] Ivan Seo HDL NORMAL > or = 60 mg/dl - LO W CARDIOVASCULAR RISK <40 mg/dl - HIGH CARDIOVASCULAR RISK Normal [facility] Comment on above: Performed By: #### C MP, TSH, FT3, T4, LIPID #### [facility] [address] [address] [address] Ivan Seo LDL CALC NORMAL SEE BELOW Normal [facility] Comment on above: Result Comment: <100 mg/dl OPTIMAL 100 - 129 mg/dl NEAR OR ABOVE OPTIMAL 130 - 159 mg/dl BORDERLINE HIGH 160 - 189 mg/dl HIGH >190 mg/dl VERY HIGH Performed By: #### C MP, TSH, FT3, T4, LIPID #### [facility] [address] [address] [address] Ivan Seo Triglyceride [Mass/Vol] 91 mg/dL Normal <=150 [facility] Comment on above: Performed By: #### C MP, TSH, FT3, T4, LIPID #### [facility] [address] [address] [address] Ivan Seo VLDL CALC 18.2 mg/dL Normal [facility] Comment on above: Performed By: #### C MP, TSH, FT3, T4, LIPID #### [facility] [address] [address] [address] Ivan Seo OCC BLD IMMUNO SCREENon OCCULT BLOOD Negative Normal NEGATIVE [facility] Comment on above: Performed By: #### H STROPN, TSH, BNP, BMP #### [facility] [address] [address] [address] Ivan Seo PROF 14(COMP METB)on 022 Albumin [Mass/Vol] 4.0 g/dL Normal 3.4-5.0 [facility] Comment on above: Performed By: #### C MP, TSH, FT3, T4, LIPID #### [facility] [address] [address] [address] Ivan Seo Albumin/Globulin [Mass ratio] 1.1 {ratio} Normal [facility] Comment on above: Performed By: #### C MP, TSH, FT3, T4, LIPID #### [facility] [address] [place] [address] Dr. Ivan Seo ALP [Catalytic activity/Vol] 110 U/L Normal 46-116 [facility] Comment on above: Performed By: #### C MP, TSH, FT3, T4, LIPID #### [facility] [address] [place] [address] Dr. Ivan Seo ALT [Catalytic activity/Vol] 122 U/L Critically high 16-63 [facility] Comment on above: Performed By: #### C MP, TSH, FT3, T4, LIPID #### [facility] [address] [place] [address] Dr. Ivan Seo Anion gap [Moles/Vol] 13.0 mmol/L Normal [facility] Comment on above: Performed By: #### C MP, TSH, FT3, T4, LIPID #### [facility] [address] [place] [address] Dr. Ivan Seo AST [Catalytic activity/Vol] 37 U/L Normal 15-37 [facility] Comment on above: Performed By: #### C MP, TSH, FT3, T4, LIPID #### [facility] [address] [place] [address] Dr. Ivan Seo Bilirubin [Mass/Vol] 0.6 mg/dL Normal 0.2-1.0 [facility] Comment on above: Performed By: #### C MP, TSH, FT3, T4, LIPID #### [facility] [address] [place] [address] Dr. Ivan Seo Calcium [Mass/Vol] 9.3 mg/dL Normal 8.5-10.1 [facility] Comment on above: Performed By: #### C MP, TSH, FT3, T4, LIPID #### [facility] [address] [place] [address] Dr. Ivan Seo Chloride [Moles/Vol] 102 mmol/L Normal 98-107 [facility] Comment on above: Performed By: #### C MP, TSH, FT3, T4, LIPID #### [facility] [address] [place] [address] Dr. Ivan Seo CO2 [Moles/Vol] 29.1 mmol/L Normal 21.0-32.0 [facility] Comment on above: Performed By: #### C MP, TSH, FT3, T4, LIPID #### [facility] [address] [place] [address] Dr. Ivan Seo Creatinine [Mass/Vol] 0.84 mg/dL Normal 0.70-1.30 [facility] Comment on above: Performed By: #### C MP, TSH, FT3, T4, LIPID #### [facility] [address] [place] [address] Dr. Ivan Seo EGFR-AF BARBADIAN >60 Normal >=60 [facility] Comment on above: Performed By: #### C MP, TSH, FT3, T4, LIPID #### [facility] [address] [place] [address] Dr. Ivan Seo EGFR-NON AF BARBADIAN >60 Normal >=60 [facility] Comment on above: Performed By: #### C MP, TSH, FT3, T4, LIPID #### [facility] [address] [place] [address] Dr. Ivan Seo Globulin (S) [Mass/Vol] 3.8 g/dL Normal [facility] Comment on above: Performed By: #### C MP, TSH, FT3, T4, LIPID #### [facility] [address] [place] [address] Dr. Ivan Seo Glucose [Mass/Vol] 106 mg/dL Normal 74-106 [facility] Comment on above: Performed By: #### C MP, TSH, FT3, T4, LIPID #### [facility] [address] [place] [address] Dr. Ivan Seo Potassium [Moles/Vol] 4.1 mmol/L Normal 3.5-5.1 [facility] Comment on above: Performed By: #### C MP, TSH, FT3, T4, LIPID #### [facility] [address] [address] [address] Ivan Seo Protein [Mass/Vol] 7.8 g/dL Normal 6.4-8.2 [facility] Comment on above: Performed By: #### C MP, TSH, FT3, T4, LIPID #### [facility] [address] [place] [address] Dr. Ivan Seo Sodium [Moles/Vol] 140 mmol/L Normal 136-145 [facility] Comment on above: Performed By: #### C MP, TSH, FT3, T4, LIPID #### [facility] [address] [place] [address] Dr. Ivan Seo Urea nitrogen [Mass/Vol] 18.0 mg/dL Normal 7.0-18.0 [facility] Comment on above: Performed By: #### C MP, TSH, FT3, T4, LIPID #### [facility] [address] [place] [address] Dr. Ivan Seo Urea nitrogen/Creatinine [Mass ratio] 21.4 mg/mg Normal [facility] Comment on above: Performed By: #### C MP, TSH, FT3, T4, LIPID #### [facility] [address] [place] [address] Dr. Ivan Seo T4on 06-05-2022 T4 [Mass/Vol] 7.40 ug/dL Normal 4.50-12.10 [facility] Comment on above: Performed By: #### M G, BMP #### [facility] [address] [place] [address] Dr. Ivan Seo TSHon 06-05-2022 TSH 2.196 uIU/mL Normal 0.358-3.740 [facility] Comment on above: Performed By: #### C MP, TSH, FT3, T4, LIPID #### [facility] [address] [place] [address] Dr. Ivan Seo Vital Signs Date Time Vital Sign Value Performing Clinician Facility 05-14-2023 09:16-0500 Diastolic blood pressure 90 mm[Hg] Eduardo REINOSO [facility] 05-14-2023 09:16-0500 Heart rate 70 /min Eduardo NILL [facility] 05-14-2023 09:16-0500 Mean blood pressure 111 mm[Hg] Eduardo NILL [facility] 05-14-2023 09:16-0500 Respiratory rate 19 /min Eduardo NILL [facility] 05-14-2023 09:16-0500 SaO2% (BldA) [Mass fraction] 96 % Eduardo NILL [facility] 05-14-2023 09:16-0500 Systolic blood pressure 153 mm[Hg] Eduardo NILL [facility] 05-14-2023 09:10-0500 Diastolic blood pressure 95 mm[Hg] Eduardo NILL [facility] 05-14-2023 09:10-0500 Heart rate 71 /min Eduardo NILL [facility] 05-14-2023 09:10-0500 Mean blood pressure 110 mm[Hg] Eduardo NILL [facility] 05-14-2023 09:10-0500 Respiratory rate 16 /min Eduardo NILL [facility] 05-14-2023 09:10-0500 SaO2% (BldA) [Mass fraction] 97 % Eduardo NILL [facility] 05-14-2023 09:10-0500 Systolic blood pressure 141 mm[Hg] Eduardo NILL [facility] 05-14-2023 09:05-0500 Diastolic blood pressure 95 mm[Hg] Eduardo NILL [facility] 05-14-2023 09:05-0500 Heart rate 71 /min Eduardo NILL [facility] 05-14-2023 09:05-0500 Respiratory rate 18 /min Eduardo NILL [facility] 05-14-2023 09:05-0500 SaO2% (BldA) [Mass fraction] 97 % Eduardo NILL [facility] 05-14-2023 09:05-0500 Systolic blood pressure 141 mm[Hg] Eduardo NILL [facility] 05-14-2023 09:00-0500 Mean blood pressure 105 mm[Hg] Eduardo NILL [facility] 05-14-2023 08:55-0500 Body temperature 97.7 [degF] Eduardo NILL [facility] 05-14-2023 08:50-0500 Respiratory rate 23 /min Eduardo NILL [facility] 05-14-2023 08:45-0500 Respiratory rate 20 /min Eduardo NILL [facility] 05-14-2023 08:40-0500 Respiratory rate 21 /min Eduardo NILL [facility] 05-14-2023 07:03-0500 Blood Pressure Location Eduardo NILL [facility] 05-14-2023 07:03-0500 Body temperature 98.24 [degF] Eduardo NILL [facility] 04-14-2023 13:09-0400 Blood Pressure Location Eduardo NILL [facility] [place] 04-14-2023 13:09-0400 Diastolic blood pressure 84 mm[Hg] Eduardo NILL [facility] [place] 04-14-2023 13:09-0400 Heart rate 72 /min Eduardo NILL [facility] [place] 04-14-2023 13:09-0400 Respiratory rate 16 /min Eduardo REINOSO [facility] [place] 04-14-2023 13:09-0400 Systolic blood pressure 118 mm[Hg] Eduardo REINOSO [facility] [place] 09-04-2022 08:24-0500 Blood Pressure Location Benton CARL [facility] 09-04-2022 08:24-0500 Diastolic blood pressure 70 mm[Hg] Benton CARL [facility] 09-04-2022 08:24-0500 Systolic blood pressure 124 mm[Hg] [facility] Encounters Encounter Date Encounter Type Care Provider Facility Start: 07-20-2023 End: 07-20-2023 ambulatory [facility] Start: 06-14-2023 ambulatory [facility] Start: 06-14-2023 End: 06-14-2023 ambulatory [facility] Start: 05-26-2023 End: 05-27-2023 ambulatory Eduardo R JAMEL Facility:[facility] Start: 05-14-2023 End: 05-15-2023 ambulatory Eduardo R NILL Facility:[facility] Start: 05-14-2023 End: 05-14-2023 Patient encounter procedure Eduardo R NILL [facility] Start: 05-04-2023 End: 05-04-2023 ambulatory [facility] Start: 04-23-2023 End: 04-23-2023 ambulatory [facility] Start: 04-14-2023 End: 04-15-2023 ambulatory Josh Bach Facility:[facility] Start: 04-14-2023 End: 04-14-2023 Patient encounter procedure Eduardo REINOSO [facility] Start: 03-23-2023 End: 03-23-2023 ambulatory [facility] Start: 03-04-2023 ambulatory Eduardo REINOSO Facility:[facility] Start: 11-13-2022 End: 11-13-2022 ambulatory [facility] Start: 11-05-2022 End: 11-05-2022 ambulatory [facility] Start: 10-20-2022 End: 10-20-2022 ambulatory [facility] Start: 10-02-2022 End: 10-02-2022 ambulatory [facility] Start: 09-25-2022 ambulatory [facility] Start: 09-25-2022 End: 09-26-[address] JOSH BACH . Facility:[facility] Start: 09-14-2022 End: 09-14-2022 [facility]: 09-11-2022 End: 09-12-2022 Evaluation and management of inpatient DR JOSH BACH . Facility:[facility] Start: 09-04-2022 End: 09-04-[address] JOSH BACH . Facility:[facility] Start: 09-04-2022 End: 09-05-2022 ambulatory Benton CARL Facility:[facility] Start: 09-04-2022 End: 09-04-2022 Patient encounter procedure [facility] CAR[facility] Start: 09-02-2022 End: 09-03-2022 ambulatory FLASH [facility] Start: 08-28-2022 End: 09-02-2022 Evaluation and management of inpatient EDDIE SCOTT [facility] Start: 08-28-2022 Emergency department patient visit SHIRA EMILY [facility] Start: 08-28-2022 End: 08-28-2022 ambulatory [facility] [facility] Start: 08-27-2022 End: 08-28-[address] JOSH BACH . Facility:[facility]1 Start: 08-18-2022 End: 08-20-[address] JOSH BACH . Facility:[facility] Start: 06-08-2022 Encounter for genera l adult medical examination without abnormal findings DR JOSH BACH . [facility] Start: 06-05-2022 End: 06-06-[address] JOSH [...] Performed By: #### M G, BMP #### [facility] [address] [place] [address] Dr. Ivan Seo Cardiac ablation usi ng fluoroscopy guidance Benton CARL Hernia repair Benton CARL Repair of right ingu inal hernia Eduardo REINOSO Plan of Treatment Date Care Activity Detail Author Start: 09-03-2023 ambulatory Ambulatory Facility:[facility] [place] Immunizations Immunization Date Immunization Notes Care Provider Fa cilisteven 03-25-2020 sipuleucel-T Benton CARL [facility] 04-03-2019 influenza virus vaccine, live, attenuated, for intranasal use Benton CARL [facility] NEGATED: Highlighted row has not occurred!09-12-2021 SARS-CoV-2 (COVID-19) Ad26 vaccine, recombinant Benton CARL [facility] Payers Date Payer Category Payer Unknown [id number] 2.16.84 [id number] 1975 Unknown [id number] 2.16.84 [id number] 1974 Unknown [id number] 2.16.84 [id number] 1974 Unknown [id number] 2.16.84 [id number] 1974 Unknown [id number] 2.16.84 [id number] 1974 Unknown [id number] 2.16.84 [id number] 1974 Unknown [id number] 2.16.8 [id number] 1974 Unknown [id number] 2.16.8 [id number] 1974 Unknown [id number] 2.16.8 [id number] 1974 Unknown [id number] 2.16.8 [id number] 1974 Unknown [id number] 2.16.8 [id number] 1959 Unknown [id number] Social History Date Type Detail Facility Start: 09-04-2022 End: 04-14-2023 Tobacco smoking status Ex-smoker (finding) [facility] Comment on above: Quit 2008 Sex Assigned At Male [facility] Tobacco smoking status Never [facility] [place] Comment on above: Quit 2008 Functional Status Date Assessment Result Facility 05-14-2023 Functional Status N/A [facility] 04-14-2023 Functional Status N/A [facility] [place] 09-04-2022 Functional Status N/A [facility] [place] Clinical Notes 08-28-2022 to 07-20-2023 Note Date & Type Note Facility 07-20-2023 Note [place] Electrophysiology Consult Note [facility] Clinic Reason for visit: svt, [...] describe, this event was reviewed by Dr. Burkett and was noted in sinus rhythm he was instructed to increase his Toprol to 100 mg daily and thought he was told to take 100 mg twice daily and that is what has been taking ECG 07/20/2023 sinus rhythm 60 bpm 05/04/[address] burkett LOOP reveals suggestion of atrial flutter / [...] monitor placed due to being admitted at [facility] for chest discomfort and acute PE. Event [...] was not done. Since his discharge from [facility], he was admitted to [facility] for chest pain. He was found to have an acute PE and was started on Eliquis. BLE doppler showed small nonocclusive right femoral vein thrombus. He also noted that he had also traveled down to [place] via car the few days prior to episode. Since his admission at [facility] last week, he has been [...] of Systems Constitutional (more content not included)... [facility] 07-20-2023 Note Patient here for fol low up ablation. Denies chest pain, SOB, palpitations, and bleeding on Eliquis. Says sometimes he feels something that's hard for him to describe. Says his BP continues to run high despite the increase in metoprolol to 100mg bid. Review of Systems All other systems reviewed and are negative. [facility] 06-14-2023 Note OMPREHENSIVE EP STUD Y & POSTEROSEPTAL PATHWAY ABLATION PROCEDURE NOTE DATE OF PROCEDURE: 06/14/2023 PERFORMING PHYSICIAN: Dr. Rishabh Burkett MARKETING OFFICER: Dr Stone Cloud INDICATIONS FOR PROCEDURE: 1. [...] was not done. Since his discharge from [facility], he was admitted to [facility] for chest pain. He was [...] performed CTI ablation (more content not included)... [facility] 06-14-2023 Note Patient: Sujata shukla Procedure Information Date/Time: 06/14/23 0830 Procedure: Ablation atrial flutter - to be scheduled before end of yr due to insurance Location: 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 VASCULAR LAB (Cath) Providers: Rishabh Burkett MD Clinical information reviewed: Allergies Meds Physical Exam Airway Mallampati: II TM distance: >3 FB Neck ROM: full Cardiovascular Dental Pulmonary Abdominal Anesthesia Plan ASA 2 CSE Anesthetic plan and risks discussed with patient. Use of blood products discussed with patient who. Additional Equipment Requests [facility] 05-17-2023 Note [id number] [facility] 05-14-2023 Hospital Discharge instructions Patient Education [...] unsweetened, w/added ascorbic acid 1 cup 0.5 [place] 1 cup 0.7 Vegetables Cooked Green beans 1 cup 4.0 Carrots 1/2 cup sliced 2.3 Peas 1 cup 8.8 Potato (baked, with skin) 1 medium potato 3.8 Raw [place] (with peel) 1 cucumber 1.5 Lettuce 1 [...] 8.7 Peanuts 1/2 cup 7.9 Chart from [facility] 2013. SEEK IMMEDIATE MEDICAL CARE [...] of Agriculture (USDA) National Nutrient Database at: http://www.nal.usda.gov/fnic/foodc omp/search/ Created using data from the USDA National Nutrient Database for Standard Reference. Available at http://www.nal.usda.gov/fnic/foodc omp/search/. Information adapted from: ExitCare Patient Information 2009 [employer]. HeatSync 2012 http://www.Payward/contents/d mapvkrzrkvs-tvozjyq-mwkbbn-the-bas ics Follow Up Care 04/14/2023 14:21:37 With:Eduardo REINOSO Address: Shanna Crow, [address] [address]- Business (1) When:7 to 10 days [facility] 05-14-2023 Note Patient: MARCO REYNA Age: 47 years Sex: Male : 1975 Associated Diagnoses: None Author: Eduardo REINOSO MD Subjective no changes to H & P [facility] Comment on above: Result Comment: Elec [...] an ARB and consider an additional medication [facility] 05-04-2023 Note [place] Electrophysiology Consult Note [facility] Clinic Reason for visit: svt, nsvt, s/p loop, s/p avnrt ablation Date of Telehealth Visit: 05/04/2023 The patient was notified that using 3rd constitution party telecommunication application (e.g., Trivnet) is not HIPPA compliant and may carry some privacy risks. Yes The visit was conducted [id number] with the use of audio and video [...] monitor placed due to being admitted at [facility] for chest discomfort and acute PE. Event [...] was not done. Since his discharge from [facility], he was admitted to [facility] for chest pain. He was found to have an acute PE and was started on Eliquis. BLE doppler showed small nonocclusive right femoral vein thrombus. He also noted that he had also traveled down to [place] via car the few days prior to episode. Since his admission at [facility] last week, he has been [...] 1 PPD, rufus (more content not included)... [facility] 04-23-2023 Note Patient here to disc uss medications. Had echo last week. He has concerns with metoprolol and energy level. Denies chest pain and palpitations. Review of Systems Constitutional: Positive for malaise/fatigue. Cardiovascular: Positive for dyspnea on exertion. Neurological: Positive for light-headedness ( when crouched down ). All other systems reviewed and are negative. [facility] 04-23-2023 Note [place] Electrophysiology Consult Note [facility] Clinic Reason for visit: svt, [...] monitor placed due to being admitted at [facility] for chest discomfort and acute PE. Event [...] was not done. Since his discharge from [facility], he was admitted to [facility] for chest pain. He was found to have an acute PE and was started on Eliquis. BLE doppler showed small nonocclusive right femoral vein thrombus. He also noted that he had also traveled down to [place] via car the few days prior to episode. Since his admission at [facility] last week, he has been [...] (CARDIA) Difficulty o (more content not included)... [facility] 04-14-2023 Note Chief Complaint [...] Entresto 24 mg-26 (more content not included)... [facility] Comment on above: Result Comment: Elec tronically Signed By: KEMAR MOLINA, Eduardo Galloway\Date and Time Signed: 04/14/23 17:00 EDT 03-23-2023 Note [place] Electrophysiology Consult Note [facility] Reason for visit: wound [...] monitor placed due to being admitted at [facility] for chest discomfort and acute PE. Event [...] was not done. Since his discharge from [facility], he was admitted to [facility] for chest pain. He was found to have an acute PE and was started on Eliquis. BLE doppler showed small nonocclusive right femoral vein thrombus. He also noted that he had also traveled down to [place] via car the few days prior to episode. Since his admission at [facility] last week, he has been [...] file Physically Abus (more content not included)... [facility] 11-13-2022 Note [place] Electrophysiology Consult Note [facility] Reason for visit: wound [...] monitor placed due to being admitted at [facility] for chest discomfort and acute PE. Event [...] was not done. Since his discharge from [facility], he was admitted to [facility] for chest pain. He was found to have an acute PE and was started on Eliquis. BLE doppler showed small nonocclusive right femoral vein thrombus. He also noted that he had also traveled down to [place] via car the few days prior to episode. Since his admission at [facility] last week, he has been [...] on file N (more content not included)... [facility] 11-05-2022 Note LOOP IMPLANT PROCEDU RE NOTE DATE OF PROCEDURE: 11/05/2022 PERFORMING PHYSICIAN: Dr. Rishabh Burkett MARKETING OFFICER: EARL INDICATIONS FOR PROCEDURE: 1. SVT/AF surveillance [...] the sternum on the left using the [employer] tool. The loop recorder was then [...] the incision. Rishabh Burkett MD Cardiac Electrophysiology. [facility] 10-20-2022 Note Sujata is [...] headaches occasionally). Negative for dizziness and light-headedness. [facility] 10-20-2022 Note [place] Electrophysiology Consult Note [facility] Reason for visit: NSVT s/p EP study without ablation HPI: Patient for follow-up s/p EP study/01/17. 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 Post ablation patient continued to have symptoms of palpitations, and an event monitor placed due to being admitted at [facility] for chest discomfort and acute PE. Event [...] was not done. Since his discharge from [facility], he was admitted to [facility] for chest pain. He was found to have an acute PE and was started on Eliquis. BLE doppler showed small nonocclusive right femoral vein thrombus. He also noted that he had also traveled down to [place] via car the few days prior to episode. Since his admission at [facility] last week, he has been [...] 2.25 m??? Meds: (more content not included)... [facility] 10-02-2022 Note COMPREHENSIVE EP LUIS DY PROCEDURE NOTE DATE OF PROCEDURE: 10/02/2022 PERFORMING PHYSICIAN: Dr. Rishabh Burkett MARKETING OFFICER: Dr Bobby Boyce INDICATIONS FOR PROCEDURE: 1. [...] was not done. Since his discharge from [facility], he was admitted to [facility] for chest pain. He was found to have an acute PE and was started on Eliquis. BLE doppler showed small nonocclusive right femoral vein thrombus. He also noted that he had also traveled down to [place] via car the few days prior to episode. Since his admission at [facility] last week, he has been [...] as needed. Rishabh Burkett MD Cardiac Electrophysiology [facility] 10-02-2022 Note Patient: Sujata shukla Procedure Information Date/Time: 10/02/22 1430 Procedure: EP Study possible ablation - may require anesthesia- to be determined by Dr Burkett Location: [facility] REVENUE STAMP CUTTER 1 EP / [facility] VASCULAR LAB (Cath) Providers: Rishabh Burkett MD [...] Additional Equipment Requests- none Bobby Boyce M.D, Change Lead, PGY- [facility]. [facility] 09-25-2022 Note [place] Electrophysiology Consult Note Date of Telehealth Visit: 09/25/22 The patient was notified that using 3rd constitution party telecommunication application (e.g., Trivnet) is not HIPPA compliant and may carry some privacy risks. Yes The visit was conducted [id number] with the use of audio and video [...] was not done. Since his discharge from [facility], he was admitted to [facility] for chest pain. He was found to have an acute PE and was started on Eliquis. BLE doppler showed small nonocclusive right femoral vein thrombus. He also noted that he had also traveled down to [place] via car the few days prior to episode. Since his admission at [facility] last week, he has been [...] 10 mg Ta (more content not included)... [facility] 09-25-2022 Note Event monitor urgent report from Dr Burkett for noted non sustained VT- he recommends EPS with possible VT ablation. [facility] 09-25-[address] Burkett notified katia walker via email that event monitor showed non sustained VT. He recommends to schedule pt for EPS/possible VT ablation- orders placed and email sent to Marie Kinney TRADING ASSISTANT- EP to call and d/w pt or schedule pt soon for clinic appointment to discuss about planned procedure. Isa Rincon TRADING ASSISTANT Division of Cardiology, [facility]- [phone] Pager- [phone] Email- [email or web address] 09-14-2022 Note Review of Systems Cardiovascular: Positive for chest pain, dyspnea on exertion and paroxysmal nocturnal dyspnea. Negative for claudication, cyanosis, irregular heartbeat, leg swelling, near-syncope, orthopnea, palpitations and syncope. Last Wednesday night started having chest pain 10/10 pain level, had to sleep upright in chair, very uncomfortable to lay down. All other systems reviewed and are negative. [facility] 09-14-[address] [facility] SUBJECTIVE Chief Complaint Patient presents with Hospital Follow-up Pt states that he was admitted to [facility] from 09/10-09/12 for an Ablation, tackdallin cardia , had some clots in right lower lung,also had echo completed Sujata Reyna is a 47 y.o. male here for hospital follow-up. HPI 09/14/2022 -Patient was admitted to [facility] for acute HFrEF and unstable angina at the beginning of August. He was found to have normal coronary angiogram. 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 He had an event monitor placed -Since his discharge from [facility], he was admitted to [facility] for chest pain. He was found to have an acute PE and was started on Eliquis. BLE doppler showed small nonocclusive right femoral vein thrombus. He also noted that he had also traveled down to [place] via car the few days prior to episode. -Since his admission at [facility] last week, he has been feeling better. Chest pain is intermittent but improved. He denies dyspnea, dizziness/LH, palpitations, near syncope, LE edema, bleeding issues. Discharge Summary (08/28/2022-09/02/2022) Final Discharge Diagnosis: Unstable angina New onset heart failure NYHA class II Admission Diagnosis: Unstable angina ([facility]) [I20.0] Recurrent PSVT Atypical AV erica reentrant [...] radiofrequency ablation of SVT. Last HPI per LINDA Rincon: Sujata Reyna is a 46 y.o. [...] sweating. PT was evaluated in ED at [facility]- was noted on ECG to [...] palpitations, paroxysmal n (more content not included)... [facility] 09-04-2022 Hospital Discharge instructions [...] urethra. Follow these instructions at home: Take axye-fux-ilbdbut and prescription medicines only as told by [...] 06/14/2006 Document Revised: 05/09/2019 Document Reviewed: 07/19/2017 [employer] Patient Education [employer]. Follow Up Care 09/12/2021 08:41:31 With:SIDDHARTHA MOLINA, Benton Zurita, URL Address: [address] [place] [address]- When: Unknown [facility] 09-02-2022 Note Pt provided with dis charge instructions and education. All questions answered. Meds sent to home pharmacy. Pt walked to main entrance with spouse. [facility] 09-02-2022 Note 30 day event monitor , and echocardiogram in 4-6 weeks. Then F/U with Dr Burkett in about 6 weeks. [facility] 09-02-2022 Note Hospital Medicine Discharge Summary Final Discharge Diagnosis: Unstable angina New onset heart failure NYHA class II Admission Diagnosis: Unstable angina (CMS/[facility]) [I20.0] Recurrent PSVT Atypical AV erica reentrant [...] Your Medications These medications were sent to [facility]/pharmacy #[id number] CORNER OF [address] [address] dapagliflozin 10 mg metoprolol succinate XL 200 [...] was 40 minutes. Signed Flash Calles MD Hospital Medicine 09/02/2022 9:25 AM [facility] 09-02-2022 Note Cardiology Progress [...] weeks and f/U with Dr Burkett in [place]. F/U in heart failure clinic in 1 week Discussed with patient/patients family and coach builder Dr. Paula, Dr Blas and Dr Madelaine Rincon, LINDA UTP Cardiovascular Medicine [facility] 2022 Note Indications for [...] sedation Arterial line placement Adrien Blas M.D. [facility] Breaker Bossgraphic user interface designer and Pediatrics Director: Cardiac Electrophysiology Program [facility] 2022 Note Patient: Sujata shukla Procedure Information Date/Time: 09/01/22 1535 Procedure: EP Study possible ablation - PSVT- Near syncope- Lt BBB Location: 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 VASCULAR LAB (Cath) Providers: Adrien Blas MD Clinical information reviewed: Allergies Meds Physical Exam Airway Mallampati: I Cardiovascular - normal exam Dental - normal exam Pulmonary - normal exam Abdominal - normal exam Anesthesia Plan Additional Equipment Requests [facility] 2022 Note Hospital Medicine Daily Progress Note - 2022 12:05 PM; Room: [address] [place] [address] Admission: 08/28/2022 12:50 PM; Length of stay: 4 days THE HOSPITALIST TEAM PREFERS TO USE [employer] CHAT FOR COMMUNICATION 7AM-7PM. IF I DO NOT RESPOND WITHIN 15 MINUTES, PLEASE PAGE ME/CALL THROUGH THE SALON LEADER. FROM 7PM-7AM, PLEASE PAGE [phone](COVR) Code Status: Full Code Discharge Destination: home [...] cardiovascular stress test PSVT (paroxysmal supraventricular tachycardia) ([facility]/HCC) Assessment and Plan -Unstable angina patient underwent [...] for: PREALBUMIN, TSH, T3FREE, FREET4, CORTISOL, FEV1, LOK9BKX, DLCO, RVSP, HDL, LDL No results found for: [id number], IRON, TIBC, C3, C4, HELEN, CANCA, ASO, [...] sedation. 1% lidocaine (more content not included)... [facility] 2022 Note Cardiology Progress [...] tomorrow am. Discussed with patient/patients family and coach builder Dr. Paula. Isa Rincon, LINDA UTP Cardiovascular Medicine [facility] 08-31-2022 Note Patient: Sujata shukla Procedure Information Date/Time: 08/31/22 1630 Procedures: Coronary angiography (Bilateral) Right heart cath Location: [facility] REVENUE STAMP CUTTER [address] / [facility]ASC[facility] (Cath) Providers: Geoffrey French MD [...] consented to blood products. Additional Equipment Requests [facility] 08-31-2022 Note Consult for HF diet education. Pt NPO at this time, pending angiogram today. Reports good appetite and intakes EXCHANGE FLOOR MANAGER. No other nutrition related concerns. No wt [...] Recommend heart healthy diet when diet advanced. [facility] 08-31-2022 Note Hospital Medicine Daily Progress Note - 08/31/2022 1:38 PM; Room: 3165/3165-01 Admission: 08/28/2022 12:50 PM; Length of stay: 3 days THE HOSPITALIST TEAM PREFERS TO USE [employer] CHAT FOR COMMUNICATION 7AM-7PM. IF I DO NOT RESPOND WITHIN 15 MINUTES, PLEASE PAGE ME/CALL THROUGH THE SALON LEADER. FROM 7PM-7AM, PLEASE PAGE [phone](COVR) Code Status: Full Code Discharge Destination: home [...] for: PREALBUMIN, TSH, T3FREE, FREET4, CORTISOL, FEV1, SYC7SIM, DLCO, RVSP, HDL, LDL No results found for: [id number], IRON, TIBC, C3, C4, HELEN, CANCA, ASO, [...] Family members Typ (more content not included)... [facility] 08-31-2022 Note Cardiology Progress [...] at discharge. Discussed with patient/patients family and coach builder Dr. Paula. Isa Rincon NP UTP Cardiovascular Medicine [facility] 08-31-2022 Note Social Work Note Operations Research Director met with patient and at bedside to discuss discharge planning. Patient is from home with ; home is two levels and patient claims to be independent with mobility. No PT/OT ordered. Patient denies [facility] and community resources. can transport home at [place]. Likely no other needs. [facility] 08-30-2022 Note Cardiology Progress [...] chronic systolic heart failure, NYHA class 2 ([facility]/HCC) Unstable angina ([facility]/HCC) Hypertension Abnormal cardiovascular stress test #Unstable angina #Abnormal stress test - moderate-sized area of moderate severity perfusion defect in anterior wall, inferior wall w/o reversible ischemia #Newly found midrange EF 45-50%, abnormal septal motion, NYHA I-II #LBBB, new #Palpitations #NSVT PLAN: -Patient scheduled for coronary angiogram tomorrow. Discussed risks/benefits, risks including bleeding, infection, renal impairment, stroke, PR, - he states understanding and is agreeable to proceed. Keep NPO after midnight. -GDMT: Metoprolol increased to 100mg BID in light of PSVT episode today, plan to switch to Toprol at discharge. Continue losartan 25mg daily. -Continue ASA, statin. -Given PRN SL nitroglycerin for chest pain. -Consider event monitor at discharge. Discussed with patient/patients family and coach builder Dr. Paula. Justus England NP [facility] Cardiovascular Medicine [facility] 08-30-2022 Note Hospital Medicine Daily Progress Note - 08/30/2022 11:17 AM; Room: [address] [place] [address] Admission: 08/28/2022 12:50 PM; Length of stay: 2 days THE HOSPITALIST TEAM PREFERS TO USE [employer] CH[employer] FOR COMMUNICATION 7AM-7PM. IF I DO NOT RESPOND WITHIN 15 MINUTES, PLEASE PAGE ME/CALL THROUGH THE SALON LEADER. FROM 7PM-7AM, PLEASE PAGE [phone](COVR) Code Status: Full Code Discharge Destination: home [...] for: PREALBUMIN, TSH, T3FREE, FREET4, CORTISOL, FEV1, [id number], DLCO, RVSP, HDL, LDL No results found for: [id number], IRON, TIBC, C3, C4, HELEN, CANCA, ASO, [...] Systems: Spouse/significant other Signed Eddie Scott MD [facility] Medicine 08/30/2022 11:17 AM [facility] 08-29-2022 Note [facility] Medicine Daily Progress Note - 08/29/2022 1:28 PM; Room: [facility]5/3165- Admission: 08/28/2022 12:50 PM; Length of stay: 1 days THE HOSPITALIST TEAM PREFERS TO USE [employer] CH[employer] FOR COMMUNICATION 7AM-7PM. IF I DO NOT RESPOND WITHIN 15 MINUTES, PLEASE PAGE ME/CALL THROUGH THE SALON LEADER. FROM 7PM-7AM, PLEASE PAGE [phone](COVR) Code Status: Full Code Discharge Destination: home [...] for: PREALBUMIN, TSH, T3FREE, FREET4, CORTISOL, FEV1, [id number], DLCO, RVSP, HDL, LDL No results found for: [id number], IRON, TIBC, C3, C4, HELEN, CANCA, ASO, [...] Scott MD Hospital Medicine 08/29/2022 1:28 PM [facility] 08-28-2022 Note Hospital Medicine History and Physical 08/28/2022 3:35 PM THE HOSPITALIST TEAM PREFERS TO USE [employer] CH[employer] FOR COMMUNICATION 7AM-7PM. IF I DO NOT RESPOND WITHIN 15 MINUTES, PLEASE PAGE ME/CALL THROUGH THE SALON LEADER. FROM 7PM-7AM, PLEASE PAGE [phone](COVR) Chief Complaint Chest pain History of Present [...] chronic systolic heart failure, NYHA class 2 ([facility]) 08/28/2022 Unstable angina ([facility]) 08/28/2022 Hypertension 08/28/2022 Abnormal cardiovascular stress test [...] hypertension - admit to stepdown on telemetry. weekend with possible angiogram on Wednesday. - troponin [...] this hospital stay by a member of [facility]. Past Medical History Past Medical History: Diagnosis Date Hypertension Past Surgical History Past Surgical Hi (more content not included)... [facility] 08-28-2022 Note [place] heart class II Patient to be admitted today to [facility] for cardiac cath and he will have optimization of goal-directed medical therapy as inpatient and education on heart failure [facility] 08-28-2022 Note Plan admission to [facility] with cardiology consult and plan for cardiac cath today or Wednesday to pendent on inpatient service recommendations, telemetry and further testing [facility] 08-28-2022 Note As above [facility] As above* [facility] 08-28-2022 Note Palpitations and not ing abnormal heart rhythm per his automatic blood pressure cuff of which is unable to take as blood pressure is concerning for VT and or A-fib Admission and telemetry monitoring He may need 30-day event monitor at discharge [facility] 08-28-2022 Note New left bundle branch block [facility] Note Reviewed patient's e chocardiogram and stress test EKG and his symptoms with patient and voiced concerns regarding his multiple symptoms and intermittent tachycardia/Palpitations with near syncope- He is agreeable with admission to [facility] today. [facility] called no beds available we will send patient to emergency room. Her [place] updated and he is agreeable with patient being admitted for planned cardiac cath and evaluation with inpatient stay and telemetryFor any significant arrhythmia [facility] 08-28-2022 Note PT with Multiple epi sodes of near syncope with noted chest tightness and palpitations, Concerning for significant arrhythmia of VT Or A-fib [facility] 08-28-2022 Note MP [facility] 08-28-2022 Note [facility] CARDIOLOGY PROGR ESS [...] sweating. PT was evaluated in ED at [facility]- was noted on ECG to [...] syncope- He is agreeable with admission to [facility] today. [facility] called no beds available [...] determined by electroca (more content not included)... [facility] 08-28-2022 Note Patient is here toda y to establish care regarding failed stress test. Review of Systems HENT: Positive for hearing loss. Eyes: Positive for vision loss in left eye and vision loss in right eye. Cardiovascular: Positive for palpitations. Respiratory: Positive for cough and snoring. Neurological: Positive for light-headedness. All other systems reviewed and are negative. [facility] Evaluation + Plan note Future Appointments Appointment Date:09/03/2023 08:00:00 AM Scheduled Provider:Benton CARL MD Location:[facility] Appointment Type:URO Office Visit Diagnostic Tests PendingPSA Total 07/29/23 [facility] Evaluation + Plan note Future Appointments Appointment Date:05/14/2023 09:00:00 AM Scheduled Provider: Location:[facility] Appointment Type:Surgery FT Appointment Date:09/03/2023 08:00:00 AM Scheduled Provider:Benton CARL MD Location:[facility] Appointment Type:URO Office Visit General Surgery [place] Evaluation + Plan note Future Appointments Appointment Date:09/03/2023 08:00:00 AM Scheduled Provider:Benton CARL MD Location:[facility] Appointment Type:URO Office Visit [facility] Hospital course Narrative No data available for this section [facility] Hospital Discharge instructions No data available for this section General Surgery [place] Progress note No data available for this section [facility] Summary Purpose Family History No Family History [...] Personnel Name: Josh Bach MD Address: Address: [address] [place] [address] Personnel Name: Josh Bach MD Address: Address: [address] [place] [address] Personnel Name: Josh Bach MD Address: Address: [address] [place] [address] (unrecognized sect ion and content) No Status Records FoundNo Status Records FoundNo Status Records Found INFORMATION SOURCE (unrecogn ized section and content) DATE CREATED AUTHOR 11/04/2022 [facility] DATE CREATED AUTHOR AUTHOR'S ORGANIZ ATION 05/31/2023 [facility] DATE CREATED AUTHOR AUTHOR'S ORGANIZ ATION 08/02/2023 [facility] FOR RECORDS PERTAINING TO PATIENTS WHO [...] BE BASED ON THE PRIMARY CLINICAL RECORDS. [employer] [facility]. provides no warranty or guarantee of the accuracy or completeness of information in this document.
--- NOTE | 2023-08-12 08:01 | CA_ITS ---
Patient Name: SUJATA REYNA MR#: [id number] : 1975 Exam Date: 08/12/2023 Ordering Doctor: MARIE MILLER ECHOCARDIOGRAM REPORT PROCEDURE: CA ECHO DOPPLER COMPLETE INDICATIONS: Chronic systolic heart failure COMPARISON: None. DESCRIPTION: COMPLETE ECHOCARDIOGRAM Real-time transthoracic echocardiography with 2D, M-mode, spectral and color flow Doppler performed. QUALITY: Technical quality was good. LEFT VENTRICLE: Normal chamber size. Mild concentric left ventricular hypertrophy. Abnormal septal motion likely due to bundle branch block. Global left ventricular systolic function is at the lower limits of normal. LV EF: Visual estimation of left ventricular ejection fraction is 50-55% DIASTOLIC: Normal diastolic function. ATRIAL SEPTUM: LEFT ATRIUM: Mild dilatation. RIGHT ATRIUM: Mild dilatation. RIGHT VENTRICLE: Normal chamber size. Normal right ventricular systolic function. TRICUSPID VALVE: Normal mobility and thickness. No stenosis with trivial regurgitation. No evidence of pulmonary hypertension. RVSP 20 mmHg MITRAL VALVE: Normal mobility and thickness. No evidence of mitral valve stenosis. There is no mitral annular calcification. Trivial mitral regurgitation. AORTIC VALVE: Normal trileaflet appearance. No visible sclerosis. Normal leaflet mobility. No evidence of aortic valve stenosis. No aortic regurgitation. AORTIC ROOT: Normal diameter and appearance. PULMONIC VALVE: Normal thickness and mobility. No stenosis. Mild regurgitation. PERICARDIUM: No evidence of pericardial effusion. IVC: Collapses with inspirations. Normal size. PLEURA: CONCLUSION: 1. Mild concentric left ventricular hypertrophy. Left ventricular systolic function is at the lower limits of normal. LVEF is 50 to 55%. 2. Normal right ventricular size and systolic function. 3. No significant valvular dysfunction. 4. Normal diastolic function. 5. Normal right-sided pressures. Adult Echocardiography Procedure Report Left Ventricle LVEDD (3.7 - 5.6 cm): 5.58 cm LVESD (2.2 - 4.0 cm): 4.18 cm LVIVS thickness (0.6 - 1.2 cm): 1.07 cm LVPW thickness (0.5 - 1.0 cm): 1.24 cm e': 0.10 m/s E - e': 8.43 LVOT Max Gradient: 2.78 mm[Hg] LVOT Area (cm2): 0.83 m/s Peak Velocity (LVOT): 0.83 m/s Mean Velocity (LVOT): 0.50 m/s LVOT Diameter 1.97 cm Left Ventricular Ejection Fraction: 50-55% Left Atrium LA Volume Index (2D A2C): 38.30 ml/m2 Left Atrium Systolic Dimension: 5.13 cm Mitral Valve MV E to A Ratio: 1.30 Mitral Valve A-Wave Peak Velocity: 0.67 m/s Mitral Valve E-Wave Peak Velocity: 0.87 m/s Right Ventricle RV Internal Diastolic Dimension: 3.63 cm Aorta AO Root Diam: 2.88 cm Ascending Ao Diam: 2.70 cm Aortic Valve AoV Area ([place]): 1.70 cm2, 1.70 cm2 AoV Area (VTI): 1.58 cm2, 1.58 cm2 Peak Velocity(Antegrade Flow): 1.50 m/s Peak Gradient(Antegrade Flow): 8.95 mm[Hg] Mean Velocity(Antegrade Flow): 1.04 m/s Mean Gradient(Antegrade Flow): 4.98 mm[Hg] Velocity Time Integral: 32.16 cm Tricuspid Valve Peak Velocity (Regurgitant Flow): 2.08 m/s, 1.30 m/s, 1.84 m/s Pulmonic Valve Mean Gradient: 3.09 mm[Hg], 4.61 mm[Hg] Mean Velocity: 0.81 m/s, 1.00 m/s Peak Velocity: 1.37 m/s Peak Gradient: 6.20 mm[Hg], 8.95 mm[Hg] Right Atrium Right Atrium Systolic Pressure: 72.81 ml, 72.81 ml Dictated by: Dakota Swain M.D. on 08/14/2023 at 14:54 Approved by: Dakota Swain M.D. on 08/14/2023 at 14:59
== END 2023-08-12 06:57 | disposition home or self-care (01) ==
LOC: CARD 06:56
PROVIDERS: PCP Family Medicine; Visit Provider Nurse Practitioner
DX: I50.22 Chronic systolic (congestive) heart failure (principal)
CPT/HCPCS: 93306; 93356

== ENCOUNTER 2023-08-19 09:25 | Outpatient (OUT) | payer BC, SELFPAY ==
--- OUTSIDE RECORDS SUMMARY | 2023-08-19 09:38 | XMS_ITS | CCD ---
Author Name Unknown Address [address] [place] [address] Organization [facility] Care Team Providers Care Guardian Family Member Name Role Phone Josh Bach Primary Care Physician [phone] [address] ., DR MORENO Attending Unavailable HOY [...] Medication Allergies] Propensity to adverse reactions (disorder) [facility] Repository Medications Current Medications Medication Drug [...] dysfunction, # 30 tab(s), Refills(s) 2, Pharmacy: [facility] 594, 175, cm, 08/30/20 8:53:00 EST, Height/Length Dosing, 109, kg, 08/30/20 8:53:00 EST, Weight Dosing Start Date: 08/30/20 Status: Ordered terazosin 10 mg oral capsule (3 sources) alpha-Adrenergic Kristen Start: 09-04-2022 take 1 capsule by mouth once daily terazosin 10 mg Cap 10 mg = 1 cap(s), Oral, Daily, # 90 cap(s), Refills(s) 3, Pharmacy: [facility]/pharmacy #[id number], 175, cm, 09/04/22 8:34:00 [...] Onset: 3 Episodic Other aftercare (1 source) detention (current) use of aspirin; Translations: [GROUP HOME CURRENT USE OF ASPIRIN] Onset: 3 Episodic Other aftercare (1 source) Other chief psychology (current) drug therapy; Translations: [OTH GROUP HOME CURRENT DRUG THERAPY] Onset: 3 Episodic Other [...] order for echo was then faxed to [facility]. [facility] 36on 07-30-2023 36 Nothing recent on lo op, had svt 07/08 but that was it. I went up on entresto recently for his BP. We can always get an echo to assure not heart related Normal [facility] 36 [facility] (who works for Dr. Bach) called to make you aware patient is c/o increased SOB and elevated BP's lately. You saw him last week. Did anything show on his loop? Or does he need an ECG? She said he didn't mention palpitations or LE edema. Please advise. Thanks. [facility] Telephoneon 07-30-2023 Telephone [id number] Sujata Reyna 1975 M Date Provider Department Center 07/30/[address] No family history on file [facility] Office Visiton 07-20-2023 Follow-up visit [id number] Sujata Reyna 1975 M Date Provider Department Center 07/20/2023 MARIE DAVIS ALEJANDRINA [facility] No family history on file Level of Service:71644 SD OFFICE/OUTPATIENT ESTABLISHED MOD MDM 30 MIN [facility] HPon 06-14-[address] [facility] Electrophysiology Consult Note [facility] Clinic Reason for visit: svt, nsvt, [...] monitor placed due to being admitted at [facility] for chest discomfort and acute PE. [...] was not done. Since his discharge from [facility], he was admitted to [facility] for chest pain. He was found to have an acute PE and was started on Eliquis. BLE doppler showed small nonocclusive right femoral vein thrombus. He also noted that he had also traveled down to [place] via car the few days prior to episode. Since his admission at [facility] last week, he has been feeling [...] (08/28/2022) O (more content not included)... [facility] NURSNOTEon 06-14-2023 NURSNOTE RN educated pt on d/ c instructions. RN encouraged pt to voice any questions or concerns. Pt verbalizes no questions or concerns at this time. [facility] Orders Onlyon 06-07-2023 Orders Only [id number] Sujata Reyna 1975 M Date Provider Department Center 06/07/2023 BELINDA ALVAREZ [facility] No family history on file Normal [facility] General Surgery Office/Clini c Noteon 05-29-2023 General [...] vaccine, live, trivalent 04/03/2019 Recorded Normal Madrigal [facility] Comment on above: Result Comment: Elec [...] Benton CARL MD Where: [facility] Normal [facility] Postoperative Documentson Postoperative Documents [id number] IFF [facility] Reminderson 05-26-2023 Reminders - From: Leanne Iyer LPN To: N - Clinical; Sent: 05/26/2023 16:50:18 EST Show up: 04/13/2033 07:00:00 EDT Subject: colonoscopy recall Due Date/Time: 05/14/2033 07:00:00 EST Reminder/Recall Patient due for screening colonoscopy 05/14/2033. Normal [facility] IntraOperative Documentson 1 07-19-2022 IntraOperative Documents [id number]#[id number] TIFF [facility] Consenton 05-17-2023 Consent [id number] IFF [facility] Discharge Instructionson Discharge Instructions [id number] IFF [facility] Main OR Intraoperative Recor don 05-17-2023 Main OR Intraoperative Record IntraOp Document Type FT Summary Primary Physician: Eduardo REINOSO MD Finalized Date/Time: 05/17/23 12:28:54 Pt. Name: SUJATA REYNA/Sex: 1975 Male Med Rec #: [id number] Physician: Eduardo REINOSO MD Financial #: [id number] Pt. Type: O Room/Bed: / Admit/Disch: 05/14/23 [...] Entry 2 Entry 3 Case Attendee Deppen ASP NET PROGRAMMER, Eunice Jones RN, Mel Duncan Role Performed ASP NET PROGRAMMER Artist Manager - Primary Scrub - Primary Time In [...] Post-Care Text: (more content not included)... Normal [facility] Operative Reporton Operative Report SURGERY DATE: [...] Eduardo Reinoso M.D. FACS lr Dictated: 05/14/2023 [id number] Transcribed: 05/14/2023 cc:Josh Bach M.D. [facility] Comment on above: Result Comment: [...] list: All Problems Prostatitis / SNOMED CT 29246128 / Confirmed Screening for malignant neoplasm of colon / SNOMED CT 823911104 / Confirmed Obesity / SNOMED CT 3116210594 / Confirmed Neoplasm of uncertain behavior of skin of thigh / SNOMED CT 861883639 / Confirmed Lipoma of left shoulder / SNOMED CT 079225044 / Confirmed LBBB (left bundle branch block) / SNOMED CT 897411308 / Confirmed Impotence / SNOMED CT 7950554752 / Confirmed Hypertension / SNOMED CT 8318071926 / Confirmed History of pulmonary embolism / SNOMED CT 766247004 / Confirmed Glycosuria / SNOMED CT 50052986 / Confirmed Former smoker / SNOMED CT 40689946 / Confirmed Chronic congestive heart failure / SNOMED CT 600118067 / Confirmed Cardiomyopathy / SNOMED CT 957994337 / Confirmed BMI 33.0-33.9,adult / SNOMED CT 379783064 / Confirmed BPH with urinary obstruction / SNOMED CT 2329169086 / Confirmed Atrial fibrillation / SNOMED CT 07597290 / Confirmed Anxiety / SNOMED CT 47296278 / Confirmed Canceled: Elevated PSA / SNOMED CT 8668352653 Canceled: Pyuria / SNOMED CT 1906622 Canceled: Hesitancy / SNOMED CT 365009249 Canceled: 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 Repair of right inguinal hernia (5110363571). Social History Social & Psychosocial Habits Alcohol [...] adequate air exchange. Cardiovascular: Regular rhythm. Plan [place] [employer] Anesthesiologists (ASA) physical status classification: Class II. Anesthetic Preoperative Plan: Anesthesia General. Normal [facility] Comment on above: Result Comment: Elec [...] meets criteria ( To home ). Normal [facility] Comment on above: Result Comment: Fernando [...] place. Impression and Plan Diagnosis: Colon, diverticulosis (QJJ85-IW K57.30, Working, Medical). Course: Progressing as expected. Recommendations: Repeat colonoscopy:: In 5 years. Follow-up:: Await biopsy results in 3-5 days. Diet:: Regular diet. Medication resumption:: Continue current medications. Return to activities:: After 24 hours. Education and Follow-up: Counseled: Family. [facility] Comment on above: Other Comment: Angelita glasgow Attachment - attachment storage system not supported [id number] Can be viewed in source system Missing Attachment - attachment storage system not supported [id number] Can be viewed in source system Missing Attachment - attachment storage system not supported 8433910 Can be viewed in source system Missing Attachment - attachment storage system not supported [id number] Can be viewed in source system Consent for Treatmenton 04-28 Consent for Treatment [id number] IFF [facility] Discharge Instructionson Discharge Instructions SUJATA REYNA :1975 [...] instructed Remove Dressing On 1 Pharmacy Information [facility] Discharge Instructions Discharge Instructions Previously Scheduled Follow-Up Appointments Wednesday 8:00 AM EST With: SIDDHARTHA MOLINA, Benton Zurita Where: [facility] Comment on above: Result Comment: Elec tronically Signed By: Andrea MCKEON, Roseanna\.br\Date and Time Signed: 05/14/23 09:03 EST Inpatient Patient Summaryon 05-14-2023 Inpatient Patient Summary [place] [id number] [facility] Clinical Discharge Instructions PERSON INFORMATION Name: [...] Follow up: With: Address: When: Eduardo REINOSO [address] [place] [address], [address], [place] [id number] Business (1) Within 7 to 10 days Type Location Start Finish [facility] Office Visit [facility] 09/03/2023 8:00 AM 09/03/2023 8:15 AM Confirmed [...] Mouth every day. Refills: 3. Comment: Rohan [facility] Main OR PACU I Recordon 04-28 Main OR PACU I Record PACU Phase I Document Type FT Summary Primary Physician: Eduardo REINOSO MD Finalized Date/Time: 05/14/23 09:48:44 Pt. Name: SUJATA REYNA/Sex: 1975 Male Med Rec #: [id number] Physician: Eduardo RIENOSO MD Financial #: [id number] Pt. Type: O Room/Bed: / Admit/Disch: 05/14/23 [...] 09:25 Roseanna Mendez RN 05/14/23 09:48 Normal [facility] Main OR Preoperative Recordo n 05-14-2023 Main OR Preoperative Record Holding Area Document Type FT Summary Primary Physician: Eduardo REINOSO MD Finalized Date/Time: 05/14/23 06:58:55 Pt. Name: SUJATA REYNA/Sex: 1975 Male Med Rec #: [id number] Physician: Eduardo REINOSO MD Financial #: [id number] Pt. Type: O Room/Bed: / Admit/Disch: 05/14/23 [...] By: Sophia Membreno RN 05/14/23 06:58 Normal [facility] Monitor Recordon 05-14-2023 Monitor Record [id number] TIFF Normal [facility] Outpatient Surgery Discharge Instructionon 05-14-2023 Outpatient Surgery Discharge Instruction [address] [address] Patient Discharge Instructions PERSON INFORMATION [...] With: Address: When: Eduardo Crow, [address], [place] [id number] Business (1) Within 7 to 10 days Type Location Start Finish [place] Office Visit [facility] 09/03/2023 8:00 AM 09/03/2023 8:15 [...] to serve you. Thank you for choosing [facility] HERE ARE THE MEDICATION CHANGES THAT OCCURRED [...] PATIENT EDUCATION INFORMATION Instructions: Medication Leaflets: Normal [facility] Patient Education - Texton 1 07-14-2022 [...] unsweetened, w/added ascorbic acid 1 cup 0.5 [place] 1 cup 0.7 Vegetables Cooked Green beans 1 cup 4.0 Carrots 1/2 cup sliced 2.3 Peas 1 cup 8.8 Potato (baked, with skin) 1 medium potato 3.8 Raw Pound (with peel) 1 cucumber 1.5 Lettuce 1 [...] 8.7 Peanuts 1/2 cup 7.9 Chart from [facility] 2013. SEEK IMMEDIATE MEDICAL CARE IF: You [...] Nutrient Database for Standard Reference. Available at http://www.SoftGenetics.usda.gov /fnic/foodcomp/search/. Information adapted from: [facility]? Patient Information ?2009 Darby [employer]. [facility] 2013 http://www.Building Blocks CRE /contents/diverticular- stobuho-yertgk-dhm-basi cs [facility] Orders Onlyon 05-11-2023 Orders Only [id number] Sujata Reyna 1975 M Date Provider Department Center 05/11/2023 MARIE DAVIS [facility] St. No family history on file [facility] Insurance Correspondenceon 1 07-06-2022 Insurance Correspondence [id number] TIFF [facility] Telemedicineon 05-04-2023 Telemedicine [id number] Sujata Reyna 1975 M Date Provider Department Center 05/04/2023 Sam-RISHABH BURKETT ALEJANDRINA [facility] No family history on file Level of Service:93692 SD PHYS/QHP TELEPHONE EVALUATION 11-20 MIN Normal [facility] Office Visiton 04-23-2023 Follow-up visit [id number] Sujata Reyna 1975 M Date Provider Department Center 04/23/2023 BenjaminHEATH MARIE [facility] No family history on file Level of Service:95239 SD OFFICE/OUTPATIENT ESTABLISHED MOD MDM 30-39 MIN [facility] Consent for Procedure/Surger yon 04-15-2023 Consent for Procedure/Surgery [id number] IFF [facility] Ambulatory Visit Summaryon 1 Ambulatory Visit Summary [...] Appointments Wednesday 9:00 AM EST With: Where: [facility] Wednesday 8:00 AM EST With: Benton CARL MD Where: [facility] Office Visiton 03-23-2023 Follow-up visit [id number] Sujata Reyna 1975 M Date Provider Department Center 03/23/2023 RISHABH DIAMOND [facility] No family history on file Level of Service:64660 SD OFFICE/OUTPATIENT ESTABLISHED MOD MDM 30-39 MIN [facility] Physician Referralon 023 Physician Referral [id number] :127 [facility] Office Visiton 11-13-2022 Follow-up visit [id number] Sujata Reyna 1975 M Date Provider Department Center 11/13/2022 MARIE DAVIS [facility] No family history on file Level of Service:25868 SD OFFICE/OUTPATIENT ESTABLISHED MOD MDM 30-39 MIN [facility] HPon 11-05-2022 H&P reviewed. The patient was examined and there are no changes to the H&P. [facility] NURSNOTEon 11-05-2022 NURSNOTE RN educated pt on d/ c instructions. RN encouraged pt to voice any questions or concerns. Pt verbalizes no questions or concerns at this time. Pt was wheeled off of unit with all of belongings. [facility] HPon 10-20-[address] [facility] Electrophysiology Consult Note [facility] Clinic Reason for visit: NSVT s/p EP study without ablation HPI: Patient for follow-up s/p EP study/01/17. 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 Post ablation patient continued to have symptoms of palpitations, and an event monitor placed due to being admitted at [facility] for chest discomfort and acute PE. [...] was not done. Since his discharge from [facility], he was admitted to [facility] for chest pain. He was found to have an acute PE and was started on Eliquis. BLE doppler showed small nonocclusive right femoral vein thrombus. He also noted that he had also traveled down to [place] via car the few days prior to episode. Since his admission at [facility] last week, he has been feeling [...] 2.25 m??? Meds: (more content not included)... [facility] Office Visiton 10-20-2022 Follow-up visit [id number] Sujata Reyna 1975 M Date Provider Department Center 10/20/2022 1596-MARIE KINNEY [facility] No family history on file Level of Service:53793 SD OFFICE/OUTPATIENT ESTABLISHED MOD MDM 30-39 MIN Reason for Visit and Comments: Follow-up [073831] Fatigue [46] Results [95] - 30 day monitor post EP procedure. [facility] HPon 10-02-2022 HP H&P reviewed. The patient was examined and there are no changes to the H&P. [facility] MRI ABDOMEN WO W CONon 09-28 MRI [...] by: TRIPP CAMPO Date: 2022-09-28 08:56 Normal [facility] 09-25-[address] [facility] Electrophysiology Consult Note Date of Telehealth Visit: 09/25/22 The patient was notified that using 3rd alliance party telecommunication application (e.g., NextDocs) is not HIPPA compliant and may carry some privacy risks. Yes The visit was conducted dnad-vh-dwos with the use of audio and video [...] was not done. Since his discharge from [facility], he was admitted to [facility] for chest pain. He was found to have an acute PE and was started on Eliquis. BLE doppler showed small nonocclusive right femoral vein thrombus. He also noted that he had also traveled down to [place] via car the few days prior to episode. Since his admission at [facility] last week, he has been feeling [...] 10 mg Ta (more content not included)... [facility] Orders Onlyon 09-25-2022 Orders Only [id number] Sujata Reyna 1975 M Date Provider Department Center 09/25/[address] [facility] No family history on file [facility] Telemedicineon 09-25-2022 Telemedicine [id number] Sujata Reyna 1975 M Date Provider Department Center 09/25/2022 RISHABH DIAMOND CARD [facility] No family history on file Level of Service:81918 SD PHYS/QHP TELEPHONE EVALUATION 21-30 MIN [facility] XR FOREIGN BODY EYEon 2022 XR FOREIGN BODY EYE EXAMINATION: XR FORE IGN BODY EYE HISTORY: Foreign body in eye COMPARISON: No relevant comparison available. FINDINGS: ORBITS: Negative for a metallic foreign body. OTHER: Negative. IMPRESSION: No metallic foreign body in the orbits Electronically authenticated by: TERESSA BRIDGES Date: 2022-09-25 07:[address] [facility] Follow-Upon 09-14-2022 Follow-Up [id number] Sujata Reyna 1975 M Date Provider Department Center 09/14/2022 Seng-JUSTUS ENGLAND [facility] No family history on file Level of Service:82012 SD OFFICE/OUTPATIENT ESTABLISHED MOD MDM 30-39 MIN Reason for Visit and Comments: Hospital Follow-up [832] - Pt states that he was admitted to [facility] from 09/10-09/12 for an Ablation, tacky cardia , had some clots in right lower lung,also had echo completed Normal [facility] CBC AUTO DIFFon 09-12-2022 BASO # 0.0 103/ul Normal 0.0-0.[address] [facility] Comment on above: Performed By: #### H STROPN, TSH, BNP, BMP #### [facility] [address] [place] [address] Dr. Ivan Seo Basophils/100 WBC (Bld) 0.3 % Normal 0.2-2.0 [facility] Comment on above: Performed By: #### H STROPN, TSH, BNP, BMP #### [facility] [address] [place] [address] [address] Ivan Seo EO # 0.0 103/ul Normal 0.0-0.7 [facility] Comment on above: Performed By: #### H STROPN, TSH, BNP, BMP #### [facility] [address] [place] [address] [address] Ivan Seo Eosinophils/100 WBC (Bld) 0.3 % Critically low 0.9-7.[address] [facility] Comment on above: Performed By: #### H STROPN, TSH, BNP, BMP #### [facility] [address] [place] [address] Dr. Ivan Seo Erythrocyte distribution width (RBC) [Ratio] 12.7 % Normal 11.0-15.0 [facility] Comment on above: Performed By: #### H STROPN, TSH, BNP, BMP #### [facility] [address] [place] [address] Dr. Ivan Seo Hematocrit (Bld) [Volume fraction] 32.9 % Critically low 42.0-54.0 [facility] Comment on above: Performed By: #### H STROPN, TSH, BNP, BMP #### [facility] [address] [place] [address] [address] Ivan Seo Hemoglobin (Bld) [Mass/Vol] 11.5 g/dL Critically low 14.0-18.0 [facility] Comment on above: Performed By: #### H STROPN, TSH, BNP, BMP #### [facility] [address] [place] [address] [address] Ivan Seo IG # 0.13 10e3/ul Critically high 0.00-0.03 [facility] Comment on above: Performed By: #### H STROPN, TSH, BNP, BMP #### [facility] [address] [place] [address] Dr. Ivan Seo IG % 1.0 % Critically high 0.0-0.5 [facility] Comment on above: Performed By: #### H STROPN, TSH, BNP, BMP #### [facility] [address] [place] [address] [address] Ivan Seo LYMPH # 2.1 103/ul Normal 1.2-3.8 [facility] Comment on above: Performed By: #### H STROPN, TSH, BNP, BMP #### [facility] [address] [place] [address] [address] Ivan Seo Lymphocytes/100 WBC (Bld) 15.6 % Critically low 20.5-60.0 [facility] Comment on above: Performed By: #### H STROPN, TSH, BNP, BMP #### [facility] [address] [place] [address] [address] Ivan Seo MANUAL DIFF REQ NO Normal [facility] Comment on above: Performed By: #### H STROPN, TSH, BNP, BMP #### [facility] [address] [place] [address] [address] Ivan Seo MCH (RBC) [Entitic mass] 31.3 pg Normal 25.9-34.[address] [facility] Comment on above: Performed By: #### H STROPN, TSH, BNP, BMP #### [facility] [address] [place] [address] Dr. Ivan Seo MCHC (RBC) [Mass/Vol] 35.0 g/dL Normal 29.9-35.[address] [facility] Comment on above: Performed By: #### H STROPN, TSH, BNP, BMP #### [facility] [address] [place] [address] Dr. Ivan Seo MCV (RBC) [Entitic vol] 89.4 fL Normal 80.0-94.[address] [facility] Comment on above: Performed By: #### H STROPN, TSH, BNP, BMP #### [facility] [address] [place] [address] Dr. Ivan Seo MONO # 1.2 103/ul Critically high 0.3-0.8 [facility] Comment on above: Performed By: #### H STROPN, TSH, BNP, BMP #### [facility] [address] [place] [address] Dr. Ivan Seo Monocytes/100 WBC (Bld) 9.1 % Normal 1.7-12.[address] [facility] Comment on above: Performed By: #### H STROPN, TSH, BNP, BMP #### [facility] [address] [place] [address] Dr. Ivan Seo NEUT # 9.9 103/ul Critically high 1.4-6.5 [facility] Comment on above: Performed By: #### H STROPN, TSH, BNP, BMP #### [facility] [address] [place] [address] Dr. Ivan Seo Neutrophils/100 WBC (Bld) 73.7 % Normal 43.0-75.[address] [facility] Comment on above: Performed By: #### H STROPN, TSH, BNP, BMP #### [facility] [address] [place] [address] Dr. Ivan Seo Platelet mean volume (Bld) [Entitic vol] 8.9 fL Critically low 9.5-13.5 [facility] Comment on above: Performed By: #### H STROPN, TSH, BNP, BMP #### [facility] [address] [place] [address] [address] Ivan Seo PLT 264 103/ul Normal 150-450 [facility] Comment on above: Performed By: #### H STROPN, TSH, BNP, BMP #### [facility] [address] [address] [address] Ivan Seo RBC 3.68 106/ul Critically low 4.70-6.10 [facility] Comment on above: Performed By: #### H STROPN, TSH, BNP, BMP #### [facility] [address] [address] [address] Ivan Seo WBC 13.4 103/ul Critically high 4.0-11.0 [facility] Comment on above: Performed By: #### H STROPN, TSH, BNP, BMP #### [facility] [address] [place] [address] Dr. Ivan Seo PROF 14(COMP METB)on 023 Albumin [Mass/Vol] 3.1 g/dL Critically low 3.4-5.0 [facility] Comment on above: Performed By: #### H STROPN, TSH, BNP, BMP #### [facility] [address] [place] [address] Dr. Ivan Seo Albumin/Globulin [Mass ratio] 0.8 {ratio} Normal [facility] [facility] Comment on above: Performed By: #### H STROPN, TSH, BNP, BMP #### [facility] [address] [place] [address] Dr. Ivan Seo ALP [Catalytic activity/Vol] 81 U/L Normal 46-116 [facility] Comment on above: Performed By: #### H STROPN, TSH, BNP, BMP #### [facility] [address] [place] [address] Dr. Ivan Seo ALT [Catalytic activity/Vol] 43 U/L Normal 16-63 [facility] Comment on above: Performed By: #### H STROPN, TSH, BNP, BMP #### [facility] [address] [place] [address] Dr. Ivan Seo Anion gap [Moles/Vol] 11.7 mmol/L Normal [facility] Comment on above: Performed By: #### H STROPN, TSH, BNP, BMP #### [facility] [address] [address] [address] Ivan Seo AST [Catalytic activity/Vol] 18 U/L Normal 15-37 [facility] Comment on above: Performed By: #### H STROPN, TSH, BNP, BMP #### [facility] [address] [address] [address] Ivan Seo Bilirubin [Mass/Vol] 0.5 mg/dL Normal 0.2-1.0 [facility] Comment on above: Performed By: #### H STROPN, TSH, BNP, BMP #### [facility] [address] [place] [address] Dr. Ivan Seo Calcium [Mass/Vol] 8.9 mg/dL Normal 8.5-10.1 [facility] Comment on above: Performed By: #### H STROPN, TSH, BNP, BMP #### [facility] [address] [place] [address] Dr. Ivan Seo Chloride [Moles/Vol] 106 mmol/L Normal 98-107 [facility] Comment on above: Performed By: #### H STROPN, TSH, BNP, BMP #### [facility] [address] [place] [address] Dr. Ivan Seo CO2 [Moles/Vol] 27.7 mmol/L Normal 21.0-32.0 [facility] Comment on above: Performed By: #### H STROPN, TSH, BNP, BMP #### [facility] [address] [place] [address] Dr. Ivan Seo Creatinine [Mass/Vol] 0.75 mg/dL Normal 0.70-1.30 [facility] Comment on above: Performed By: #### H STROPN, TSH, BNP, BMP #### [facility] [address] [place] [address] Dr. Ivan Seo EGFR-AF CITIZEN OF [place] >60 Normal >=60 [facility] Comment on above: Performed By: #### H STROPN, TSH, BNP, BMP #### [facility] [address] [address] [address] Ivan Seo EGFR-NON AF CITIZEN OF [place] >60 Normal >=60 [facility] Comment on above: Performed By: #### H STROPN, TSH, BNP, BMP #### [facility] [address] [address] [address] Ivan Seo Globulin (S) [Mass/Vol] 3.8 g/dL Normal [facility] Comment on above: Performed By: #### H STROPN, TSH, BNP, BMP #### [facility] [address] [address] [address] Ivan Seo Glucose [Mass/Vol] 100 mg/dL Normal 74-106 [facility] Comment on above: Performed By: #### H STROPN, TSH, BNP, BMP #### [facility] [address] [address] [address] Ivan Seo Potassium [Moles/Vol] 3.4 mmol/L Critically low 3.5-5.[address] [facility] Comment on above: Performed By: #### H STROPN, TSH, BNP, BMP #### [facility] [address] [address] [address] Ivan Seo Protein [Mass/Vol] 6.9 g/dL Normal 6.4-8.2 [facility] Comment on above: Performed By: #### H STROPN, TSH, BNP, BMP #### [facility] [address] [address] [address] Ivan Seo Sodium [Moles/Vol] 142 mmol/L Normal 136-145 [facility] Comment on above: Performed By: #### H STROPN, TSH, BNP, BMP #### [facility] [address] [address] [address] Ivan Seo Urea nitrogen [Mass/Vol] 16.0 mg/dL Normal 7.0-18.[address] [facility] Comment on above: Performed By: #### H STROPN, TSH, BNP, BMP #### [facility] [address] [place] [address] Dr. Ivan Seo Urea nitrogen/Creatinine [Mass ratio] 21.3 mg/mg Normal [facility] Comment on above: Performed By: #### H STROPN, TSH, BNP, BMP #### [facility] [address] [place] [address] Dr. Ivan Seo BNPon 09-11-2022 Natriuretic peptide B (Bld) [Mass/Vol] 194.0 pg/mL Normal <=450.0 [facility] Comment on above: Performed By: #### B [employer]PERATIONS MANAGER #### [facility] [address] [place] [address] Dr. Ivan Seo CBC AUTO DIFFon 09-11-2022 BASO # 0.0 103/ul Normal 0.0-0.1 [facility] Comment on above: Performed By: #### M G, BMP #### [facility] [address] [place] [address] Dr. Ivan Seo Basophils/100 WBC (Bld) 0.2 % Normal 0.2-2.0 [facility] Comment on above: Performed By: #### M G, BMP #### [facility] [address] [place] [address] Dr. Ivan Seo EO # 0.0 103/ul Normal 0.0-0.7 [facility] Comment on above: Performed By: #### M G, BMP #### [facility] [address] [place] [address] Dr. Ivan Seo Eosinophils/100 WBC (Bld) 0.0 % Critically low 0.9-7.0 [facility] Comment on above: Performed By: #### M G, BMP #### [facility] [address] [place] [address] Dr. Ivan Seo Erythrocyte distribution width (RBC) [Ratio] 12.7 % Normal 11.0-15.0 [facility] Comment on above: Performed By: #### M G, BMP #### [facility] [address] [place] [address] Dr. Ivan Seo Hematocrit (Bld) [Volume fraction] 34.5 % Critically low 42.0-54.0 [facility] Comment on above: Performed By: #### M G, BMP #### [facility] [address] [place] [address] Dr. Ivan Seo Hemoglobin (Bld) [Mass/Vol] 11.8 g/dL Critically low 14.0-18.0 [facility] Comment on above: Performed By: #### M G, BMP #### [facility] [address] [place] [address] Dr. Ivan Seo IG # 0.18 10e3/ul Critically high 0.00-0.03 [facility] Comment on above: Performed By: #### M G, BMP #### [facility] [address] [place] [address] Dr. Ivan Seo IG % 1.4 % Critically high 0.0-0.5 [facility] Comment on above: Performed By: #### M G, BMP #### [facility] [address] [place] [address] Dr. Ivan Seo LYMPH # 1.4 103/ul Normal 1.2-3.[address] [facility] Comment on above: Performed By: #### M G, BMP #### [facility] [address] [place] [address] Dr. Ivan Seo Lymphocytes/100 WBC (Bld) 10.2 % Critically low 20.5-60.0 [facility] Comment on above: Performed By: #### M G, BMP #### [facility] [address] [place] [address] Dr. Ivan Seo MANUAL DIFF REQ NO Normal [facility] Comment on above: Performed By: #### M G, BMP #### [facility] [address] [place] [address] Dr. Ivan Seo MCH (RBC) [Entitic mass] 30.8 pg Normal 25.9-34.0 [facility] Comment on above: Performed By: #### M G, BMP #### [facility] [address] [place] [address] Dr. Ivan Seo MCHC (RBC) [Mass/Vol] 34.2 g/dL Normal 29.9-35.[address] [facility] Comment on above: Performed By: #### M G, BMP #### [facility] [address] [place] [address] Dr. Ivan Seo MCV (RBC) [Entitic vol] 90.1 fL Normal 80.0-94.[address] [facility] Comment on above: Performed By: #### M G, BMP #### [facility] [address] [place] [address] Dr. Ivan Seo MONO # 0.5 103/ul Normal 0.3-0.[address] [facility] Comment on above: Performed By: #### M G, BMP #### [facility] [address] [place] [address] Dr. Ivan Seo Monocytes/100 WBC (Bld) 3.7 % Normal 1.7-12.[address] [facility] Comment on above: Performed By: #### M G, BMP #### [facility] [address] [place] [address] Dr. Ivan Seo NEUT # 11.2 103/ul Critically high 1.4-6.5 [facility] Comment on above: Performed By: #### M G, BMP #### [facility] [address] [place] [address] Dr. Ivan Seo Neutrophils/100 WBC (Bld) 84.5 % Critically high 43.0-75.[address] [facility] Comment on above: Performed By: #### M G, BMP #### [facility] [address] [place] [address] Dr. Ivan Seo Platelet mean volume (Bld) [Entitic vol] 9.2 fL Critically low 9.5-13.[address] [facility] Comment on above: Performed By: #### M G, BMP #### [facility] [address] [place] [address] Dr. Ivan Seo PLT 276 103/ul Normal 150-[address] [facility] Comment on above: Performed By: #### M G, BMP #### [facility] [address] [address] [address] Ivan Seo RBC 3.83 106/ul Critically low 4.70-6.10 [facility] Comment on above: Performed By: #### M G, BMP #### [facility] [address] [address] [address] Ivan Seo WBC 13.3 103/ul Critically high 4.0-11.0 [facility] Comment on above: Performed By: #### M G, BMP #### [facility] [address] [address] [address] Ivan Seo CULTURE SPUTUMon 09-11-2022 CULTURE SPUTUM Culture Observations : NORMAL RESPIRATORY SAUNDRA. Normal [facility] Comment on above: Performed By: #### H STROPN, TSH, BNP, BMP #### [facility] [address] [address] [address] Ivan Seo CULTURE URINEon 09-11-2022 CULTURE URINE Culture Observations : NO GROWTH. Normal [facility] Comment on above: Performed By: #### M G, BMP #### [facility] [address] [address] [address] Ivan Seo ECHOCARDIO M/2D COMPLETEon 0 09-11-2022 ECHOCARDIO M/2D COMPLETE Patient: SUJATA REYNA Exam Date: 09/11/2022 : 1975 Gender:M Ordering : DR JOSH BACH . Admission #: [id number] Family : Order #: [id number] CLICK HERE TO VIEW EXAM ECHOCARDIOGRAM REPORT [...] Colon M.D. on 09/11/2022 at 14:35 Normal [facility] POINT OF CARE GLUCOSEon 08-26 Glucose [Mass/Vol] 122 mg/dL Critically high 74-106 [facility] Comment on above: Performed By: #### H STROPN, TSH, BNP, BMP #### [facility] [address] [address] [address] Ivan Seo Glucose [Mass/Vol] 161 mg/dL Critically high 74-106 [facility] Comment on above: Performed By: #### M G, BMP #### [facility] [address] [address] [address] Ivan Seo Glucose [Mass/Vol] 123 mg/dL Critically high -106 [facility] Comment on above: Performed By: #### H STROPN, TSH, BNP, BMP #### [facility] [address] [address] [address] Ivan Seo PROF 14(COMP METB)on 023 Albumin [Mass/Vol] 3.5 g/dL Normal 3.4-5.0 [facility] Comment on above: Performed By: #### H STROPN, TSH, BNP, BMP #### [facility] [address] [address] [address] Ivan Seo Albumin/Globulin [Mass ratio] 0.9 {ratio} [facility] Comment on above: Performed By: #### H STROPN, TSH, BNP, BMP #### [facility] [address] [address] [address] Ivan Seo ALP [Catalytic activity/Vol] 106 U/L Normal 46-116 [facility] Comment on above: Performed By: #### H STROPN, TSH, BNP, BMP #### [facility] [address] [place] [address] Dr. Ivan Seo ALT [Catalytic activity/Vol] 37 U/L Normal 16-63 [facility] Comment on above: Performed By: #### H STROPN, TSH, BNP, BMP #### [facility] [address] [place] [address] Dr. Ivan Seo Anion gap [Moles/Vol] 11.5 mmol/L Normal [facility] Comment on above: Performed By: #### H STROPN, TSH, BNP, BMP #### [facility] [address] [place] [address] Dr. Ivan Seo AST [Catalytic activity/Vol] 15 U/L Normal 15-37 [facility] Comment on above: Performed By: #### H STROPN, TSH, BNP, BMP #### [facility] [address] [place] [address] Dr. Ivan Seo Bilirubin [Mass/Vol] 0.5 mg/dL Normal 0.2-1.0 [facility] Comment on above: Performed By: #### H STROPN, TSH, BNP, BMP #### [facility] [address] [place] [address] Dr. Ivan Seo Calcium [Mass/Vol] 9.1 mg/dL Normal 8.5-10.1 [facility] Comment on above: Performed By: #### H STROPN, TSH, BNP, BMP #### [facility] [address] [place] [address] Dr. Ivan Seo Chloride [Moles/Vol] 104 mmol/L Normal 98-107 [facility] Comment on above: Performed By: #### H STROPN, TSH, BNP, BMP #### [facility] [address] [place] [address] Dr. Ivan Seo CO2 [Moles/Vol] 27.1 mmol/L Normal 21.0-32.0 [facility] Comment on above: Performed By: #### H STROPN, TSH, BNP, BMP #### [facility] [address] [address] [address] Ivan Seo Creatinine [Mass/Vol] 0.78 mg/dL Normal 0.70-1.30 [facility] Comment on above: Performed By: #### H STROPN, TSH, BNP, BMP #### [facility] [address] [address] [address] Ivan Seo EGFR-AF CITIZ[place] >60 Normal >=60 [facility] Comment on above: Performed By: #### H STROPN, TSH, BNP, BMP #### [facility] [address] [address] [address] Ivan Seo EGFR-NON AF CITIZ[place] OF [place] >60 Normal >=60 [facility] Comment on above: Performed By: #### H STROPN, TSH, BNP, BMP #### [facility] [address] [place] [address] Dr. Ivan Seo Globulin (S) [Mass/Vol] 4.0 g/dL Normal [facility] Comment on above: Performed By: #### H STROPN, TSH, BNP, BMP #### [facility] [address] [address] [address] Ivan Seo Glucose [Mass/Vol] 176 mg/dL Critically high 74-106 T [facility] Comment on above: Performed By: #### H STROPN, TSH, BNP, BMP #### [facility] [address] [address] [address] Ivan Seo Potassium [Moles/Vol] 3.6 mmol/L Normal 3.5-5.1 [facility] Comment on above: Performed By: #### H STROPN, TSH, BNP, BMP #### [facility] [address] [address] [address] Ivan Seo Protein [Mass/Vol] 7.5 g/dL Normal 6.4-8.2 [facility] Comment on above: Performed By: #### H STROPN, TSH, BNP, BMP #### [facility] [address] [address] [address] Iavn Seo Sodium [Moles/Vol] 139 mmol/L Normal 136-145 [facility] Comment on above: Performed By: #### H STROPN, TSH, BNP, BMP #### [facility] [address] [address] [address] Ivan Seo Urea nitrogen [Mass/Vol] 11.0 mg/dL Normal 7.0-18.0 [facility] Comment on above: Performed By: #### H STROPN, TSH, BNP, BMP #### [facility] [address] [address] [address] Ivan Seo Urea nitrogen/Creatinine [Mass ratio] 14.1 mg/mg Normal [facility] Comment on above: Performed By: #### H STROPN, TSH, BNP, BMP #### [facility] [address] [place] [address] Dr. Ivan Seo PTT HEPARIN MONITORon 2022 aPTT Coag (Bld) [Time] 47.8 s Normal 39.5-54.2 [facility] Comment on above: Performed By: #### H STROPN, TSH, BNP, BMP #### [facility] [address] [place] [address] Dr. Ivan Seo SPUTUM GRAM STAINon 09-12-19 COMMENTS [facility] Comment on above: Performed By: #### H STROPN, TSH, BNP, BMP #### [facility] [address] [place] [address] Dr. Ivan Seo DIPHTHEROIDS Normal [facility] Comment on above: Performed By: #### H STROPN, TSH, BNP, BMP #### [facility] [address] [place] [address] Dr. Ivan Seo EPITHELIALS <25 Normal [facility] Comment on above: Performed By: #### H STROPN, TSH, BNP, BMP #### [facility] [address] [place] [address] Dr. Ivan Seo FUNGAL ELEMENTS Normal [facility] Comment on above: Performed By: #### H STROPN, TSH, BNP, BMP #### [facility] [address] [place] [address] Dr. Ivan Seo GRAM NEG BACILLI Normal [facility] Comment on above: Performed By: #### H STROPN, TSH, BNP, BMP #### [facility] [address] [address] [address] Ivan Seo GRAM NEG DIPPLOCOCCI Normal [facility] Comment on above: Performed By: #### H STROPN, TSH, BNP, BMP #### [facility] [address] [address] [address] Ivan Seo GRAM POS BACILLI Normal [facility] Comment on above: Performed By: #### H STROPN, TSH, BNP, BMP #### [facility] [address] [address] [address] Ivan Seo GRAM POSITIVE COCCI MODERATE Normal [facility] Comment on above: Performed By: #### H STROPN, TSH, BNP, BMP #### [facility] [address] [address] [address] Ivan Seo WBC (Bld) [#/Vol] 10*3/uL Normal [facility] Comment on above: Performed By: #### H STROPN, TSH, BNP, BMP #### [facility] [address] [address] [address] Ivan Seo TROPONIN, HIGH SENSITIVITYon 09-11-2022 HSTROP 9.2 pg/mL Normal 4.0-76.1 [facility] Comment on above: Result Comment: CUT- OFF POINTS HAVE BEEN ESTABLISHED BASED ON THE FOURTH UNIVERSAL DEFINITIONS OF MYOCARDIAL INFARCTION. THE UPPER REFERENCE LIMIT (URL) OF TROPONIN, DEFINED THE 99TH PERCENTILE OF cTnI DISTRIBUTION IN A REFERENCE POPULATION, HAS BEEN CONFIRMED THE DECISION THRESHOLD FOR UT DIAGNOSIS. Performed By: #### H STROPN, TSH, BNP, BMP #### [facility] [address] [address] [address] Ivan Seo UA RANDOM W/MICROSCOPICon BACTERIA NONE SEEN Normal NONE SEEN [facility] Comment on above: Performed By: #### H STROPN, TSH, BNP, BMP #### [facility] [address] [address] [address] Ivan Seo Bilirubin Ql (U) Negative Normal NEGATIVE [facility] Comment on above: Performed By: #### H STROPN, TSH, BNP, BMP #### [facility] [address] [address] [address] Ivan Seo CAST NONE SEEN Normal NONE SEEN [facility] Comment on above: Performed By: #### H STROPN, TSH, BNP, BMP #### [facility] [address] [address] [address] Ivan Seo Clarity (U) CLEAR Normal CLEAR [facility] Comment on above: Performed By: #### H STROPN, TSH, BNP, BMP #### [facility] [address] [address] [address] Ivan Seo Color (U) LT. YELLOW Normal YELLOW [facility] Comment on above: Performed By: #### H STROPN, TSH, BNP, BMP #### [facility] [address] [place] [address] Dr. Ivan Seo Crystals LM Nom (Urine sed) NONE SEEN Normal NONE SEEN [facility] Comment on above: Performed By: #### H STROPN, TSH, BNP, BMP #### [facility] [address] [address] [address] Ivan Seo Epithelial cells LM Ql (Urine sed) NONE SEEN Normal NONE SEEN /RARE [facility] Comment on above: Performed By: #### H STROPN, TSH, BNP, BMP #### [facility] [address] [address] [address] Ivan Seo Glucose Ql (U) 1000 mg/dl Abnormal NEGATIVE [facility] Comment on above: Performed By: #### H STROPN, TSH, BNP, BMP #### [facility] [address] [address] [address] Ivan Seo Hemoglobin Ql (U) Negative Normal NEGATIVE [facility] Comment on above: Performed By: #### H STROPN, TSH, BNP, BMP #### [facility] [address] [address] [address] Ivan Seo Ketones Ql (U) Negative Normal NEGATIVE [facility] Comment on above: Performed By: #### H STROPN, TSH, BNP, BMP #### [facility] [address] [address] [address] Ivan Seo LEUKOCYTES Negative Normal NEGATIVE [facility] Comment on above: Performed By: #### H STROPN, TSH, BNP, BMP #### [facility] [address] [address] [address] Ivan Seo MUCOUS NONE SEEN Normal NONE SEEN [facility] Comment on above: Performed By: #### H STROPN, TSH, BNP, BMP #### [facility] [address] [address] [address] Ivan Seo Nitrite Ql (U) Negative Normal NEGATIVE [facility] Comment on above: Performed By: #### H STROPN, TSH, BNP, BMP #### [facility] [address] [place] [address] Dr. Ivan Seo pH (U) 6.0 [pH] Normal 5-9 [facility] Comment on above: Performed By: #### H STROPN, TSH, BNP, BMP #### [facility] [address] [place] [address] Dr. Ivan Seo RBC NONE SEEN Abnormal 0-2 [facility] Comment on above: Performed By: #### H STROPN, TSH, BNP, BMP #### [facility] [address] [place] [address] Dr. Ivan Seo SPEC GRAVITY 1.020 Normal 1.005-<=1.025 [facility] Comment on above: Performed By: #### H STROPN, TSH, BNP, BMP #### [facility] [address] [place] [address] Dr. Ivan Seo UA PROTEIN Negative Normal NEGATIVE/ TRACE [facility] Comment on above: Performed By: #### H STROPN, TSH, BNP, BMP #### [facility] [address] [place] [address] Dr. Ivan Seo Urobilinogen Qn (U) 0.2 {Teto'U}/dL Normal 0.2 - 1. 0 [facility] Comment on above: Performed By: #### H STROPN, TSH, BNP, BMP #### [facility] [address] [address] [address] Ivan Seo WBC NONE SEEN Normal NONE SEEN [facility] Comment on above: Performed By: #### H STROPN, TSH, BNP, BMP #### [facility] [address] [address] [address] Ivan Seo US JORDEN DOP LEG [...] NORI MCALLISTER Date: 2022-09-11 07:[address] [facility] BNPon 09-10-2022 Natriuretic peptide B (Bld) [Mass/Vol] 138.0 pg/mL Normal <=450.[address] [facility] Comment on above: Performed By: #### H STROPN, TSH, BNP, BMP #### [facility] [address] [address] [address] Ivan Seo CBC W MANUAL DIFFon 09-11-19 23 ATYPICAL LYMPH # Normal [facility] Comment on above: Performed By: #### H STROPN, TSH, BNP, BMP #### [facility] [address] [address] [address] Ivan Seo ATYPICAL LYMPH % Normal [facility] Comment on above: Performed By: #### H STROPN, TSH, BNP, BMP #### [facility] [address] [place] [address] Dr. Ivan Seo BAND # 0.0 103/ul Normal 0.0-0.[address] [facility] Comment on above: Performed By: #### H STROPN, TSH, BNP, BMP #### [facility] [address] [place] [address] Dr. Ivan Seo BAND % 0 % Normal 0-[address] [facility] Comment on above: Performed By: #### H STROPN, TSH, BNP, BMP #### [facility] [address] [place] [address] Dr. Ivan Seo BASOM # 0.00 103/ul Normal 0.00-0.[address] [facility] Comment on above: Performed By: #### H STROPN, TSH, BNP, BMP #### [facility] [address] [place] [address] Dr. Ivan Seo BASOM % 0.0 % Critically low 0.2-2.0 [facility] Comment on above: Performed By: #### H STROPN, TSH, BNP, BMP #### [facility] [address] [place] [address] Dr. Ivan Seo BLAST # Normal [facility] Comment on above: Performed By: #### H STROPN, TSH, BNP, BMP #### [facility] [address] [place] [address] Dr. Ivan Seo BLAST % Normal [facility] Comment on above: Performed By: #### H STROPN, TSH, BNP, BMP #### [facility] [address] [place] [address] Dr. Ivan Seo CORRECTED WBC Normal 4.0-11.0 [facility] Comment on above: Performed By: #### H STROPN, TSH, BNP, BMP #### [facility] [address] [place] [address] Dr. Ivan Seo EOS # 0.31 103/ul Normal 0.00-0.[address] [facility] Comment on above: Performed By: #### H STROPN, TSH, BNP, BMP #### [facility] [address] [place] [address] Dr. Ivan Seo EOS% 2.0 % Normal 0.9-7.0 [facility] Comment on above: Performed By: #### H STROPN, TSH, BNP, BMP #### [facility] [address] [address] [address] Ivan Seo HCT 35.0 % Critically low 42.0-54.0 [facility] Comment on above: Performed By: #### H STROPN, TSH, BNP, BMP #### [facility] [address] [address] [address] Ivan Seo HGB 11.9 g/dl Critically low 14.0-18.0 [facility] Comment on above: Performed By: #### H STROPN, TSH, BNP, BMP #### [facility] [address] [address] [address] Ivan Seo LYMPHM # 0.92 103/ul Critically low 1.20-3.80 [facility] Comment on above: Performed By: #### H STROPN, TSH, BNP, BMP #### [facility] [address] [address] [address] Ivan Seo LYMPHM% 6.0 % Critically low 20.5-60.0 [facility] Comment on above: Performed By: #### H STROPN, TSH, BNP, BMP #### [facility] [address] [address] [address] Ivan Seo MCH 30.7 pg Normal 25.9-34.0 [facility] Comment on above: Performed By: #### H STROPN, TSH, BNP, BMP #### [facility] [address] [address] [address] Ivan Seo MCHC 34.0 g/dl Normal 29.9-35.[address] [facility] Comment on above: Performed By: #### H STROPN, TSH, BNP, BMP #### [facility] [address] [address] [address] Ivan Seo MCV 90.2 fL Normal 80.0-94.0 [facility] Comment on above: Performed By: #### H STROPN, TSH, BNP, BMP #### [facility] [address] [address] [address] Ivan Seo METAMYELOCYTE # Normal [facility] Comment on above: Performed By: #### H STROPN, TSH, BNP, BMP #### [facility] [address] [address] [address] Ivan Seo METAMYELOCYTE % Normal [facility] Comment on above: Performed By: #### H STROPN, TSH, BNP, BMP #### [facility] [address] [address] [address] Ivan Seo MONOM# 1.38 103/ul Critically high 0.30-0.80 [facility] Comment on above: Performed By: #### H STROPN, TSH, BNP, BMP #### [facility] [address] [place] [address] Dr. Ivan Seo MONOM% 9.0 % Normal 1.7-12.0 [facility] Comment on above: Performed By: #### H STROPN, TSH, BNP, BMP #### [facility] [address] [place] [address] Dr. Ivan Seo MPV 9.2 fL Critically low 9.5-13.5 [facility] Comment on above: Performed By: #### H STROPN, TSH, BNP, BMP #### [facility] [address] [place] [address] Dr. Ivan Seo MYELOCYTE # Normal [facility] Comment on above: Performed By: #### H STROPN, TSH, BNP, BMP #### [facility] [address] [place] [address] Dr. Ivan Seo MYELOCYTE % Normal [facility] Comment on above: Performed By: #### H STROPN, TSH, BNP, BMP #### [facility] [address] [place] [address] Dr. Ivan Seo NRBC Normal [facility] Comment on above: Performed By: #### H STROPN, TSH, BNP, BMP #### [facility] [address] [place] [address] Dr. Ivan Seo PLT 275 103/ul Normal 150-[address] [facility] Comment on above: Performed By: #### H STROPN, TSH, BNP, BMP #### [facility] [address] [address] [address] Ivan Seo RBC 3.88 106/ul Critically low 4.70-6.10 [facility] Comment on above: Performed By: #### H STROPN, TSH, BNP, BMP #### [facility] [address] [address] [address] Ivan Seo RDW 12.9 % Normal 11.0-15.0 [facility] Comment on above: Performed By: #### H STROPN, TSH, BNP, BMP #### [facility] [address] [address] [address] Ivan Seo SEG # 12.70 103/ul Critically high 1.40-6.50 [facility] Comment on above: Performed By: #### H STROPN, TSH, BNP, BMP #### [facility] [address] [address] [address] Ivan Seo SEG % 83.0 % Critically high 43.0-75.0 [facility] Comment on above: Performed By: #### H STROPN, TSH, BNP, BMP #### [facility] [address] [address] [address] Ivan Seo WBC 15.3 103/ul Critically high 4.0-11.0 [facility] Comment on above: Performed By: #### H STROPN, TSH, BNP, BMP #### [facility] [address] [place] [address] Dr. Ivan Seo CTA CHEST WO W [...] JEAN CONDE Date: 2022-09-10 20:[address] [facility] Covid-19 PCR (CVDTB)on 08-26 SARS-CoV-2 (COVID-19) RNA THONG+probe Ql (Unsp spec) Not detected Normal NOT DETECTED [facility] Comment on above: Result Comment: When [...] for this test is supported by the [place] of Health and Human Service's declaration that [...] #### H STROPN, TSH, BNP, BMP #### [facility] [address] [place] [address] Dr. Ivan Seo PROF 14(COMP METB)on 023 Albumin [Mass/Vol] 3.8 g/dL Normal 3.4-5.0 [facility] Comment on above: Performed By: #### H STROPN, TSH, BNP, BMP #### [facility] [address] [place] [address] Dr. Ivan Seo Albumin/Globulin [Mass ratio] 1.0 {ratio} Normal [facility] Comment on above: Performed By: #### H STROPN, TSH, BNP, BMP #### [facility] [address] [place] [address] Dr. Ivan Seo ALP [Catalytic activity/Vol] 110 U/L Normal 46-116 [facility] Comment on above: Performed By: #### H STROPN, TSH, BNP, BMP #### [facility] [address] [place] [address] Dr. Ivan Seo ALT [Catalytic activity/Vol] 42 U/L Normal 16-63 [facility] Comment on above: Performed By: #### H STROPN, TSH, BNP, BMP #### [facility] [address] [place] [address] Dr. Ivan Seo Anion gap [Moles/Vol] 12.9 mmol/L Normal [facility] Comment on above: Performed By: #### H STROPN, TSH, BNP, BMP #### [facility] [address] [address] [address] Ivan Seo AST [Catalytic activity/Vol] 15 U/L Normal 15-37 [facility] Comment on above: Performed By: #### H STROPN, TSH, BNP, BMP #### [facility] [address] [address] [address] Ivan Seo Bilirubin [Mass/Vol] 0.8 mg/dL Normal 0.2-1.0 [facility] Comment on above: Performed By: #### H STROPN, TSH, BNP, BMP #### [facility] [address] [address] [address] Ivan Seo Calcium [Mass/Vol] 9.2 mg/dL Normal 8.5-10.1 [facility] Comment on above: Performed By: #### H STROPN, TSH, BNP, BMP #### [facility] [address] [place] [address] Dr. Ivan Seo Chloride [Moles/Vol] 103 mmol/L Normal 98-107 [facility] Comment on above: Performed By: #### H STROPN, TSH, BNP, BMP #### [facility] [address] [address] [address] Ivan Seo CO2 [Moles/Vol] 26.6 mmol/L Normal 21.0-32.0 [facility] Comment on above: Performed By: #### H STROPN, TSH, BNP, BMP #### [facility] [address] [place] [address] Dr. Ivan Seo Creatinine [Mass/Vol] 0.84 mg/dL Normal 0.70-1.30 [facility] Comment on above: Performed By: #### H STROPN, TSH, BNP, BMP #### [facility] [address] [place] [address] Dr. Ivan Seo EGFR-AF CITIZEN [place] >60 Normal >=60 [facility] Comment on above: Performed By: #### H STROPN, TSH, BNP, BMP #### [facility] [address] [address] [address] Ivan Seo EGFR-NON AF CITIZEN OF [place] >60 Normal >=60 [facility] Comment on above: Performed By: #### H STROPN, TSH, BNP, BMP #### [facility] [address] [address] [address] Ivan Seo Globulin (S) [Mass/Vol] 3.9 g/dL Normal [facility] Comment on above: Performed By: #### H STROPN, TSH, BNP, BMP #### [facility] [address] [address] [address] Ivan Seo Glucose [Mass/Vol] 111 mg/dL Critically high 74-106 T [facility] Comment on above: Performed By: #### H STROPN, TSH, BNP, BMP #### [facility] [address] [place] [address] Dr. Ivan Seo Potassium [Moles/Vol] 3.5 mmol/L Normal 3.5-5.1 [facility] Comment on above: Performed By: #### H STROPN, TSH, BNP, BMP #### [facility] [address] [address] [address] Ivan Seo Protein [Mass/Vol] 7.7 g/dL Normal 6.4-8.2 [facility] Comment on above: Performed By: #### H STROPN, TSH, BNP, BMP #### [facility] [address] [place] [address] Dr. Ivan Seo Sodium [Moles/Vol] 139 mmol/L Normal 136-145 [facility] Comment on above: Performed By: #### H STROPN, TSH, BNP, BMP #### [facility] [address] [place] [address] Dr. Ivan Seo Urea nitrogen [Mass/Vol] 11.0 mg/dL Normal 7.0-18.0 [facility] Comment on above: Performed By: #### H STROPN, TSH, BNP, BMP #### [facility] [address] [place] [address] Dr. Ivan Seo Urea nitrogen/Creatinine [Mass ratio] 13.1 mg/mg Normal [facility] Comment on above: Performed By: #### H STROPN, TSH, BNP, BMP #### [facility] [address] [address] [address] Ivan Seo PROTIMEon 09-10-2022 INR Coag (PPP) [Relative time] 1.08 {INR} Normal [facility] Comment on above: Performed By: #### H STROPN, TSH, BNP, BMP #### [facility] [address] [address] [address] Ivan Seo INR GUIDELINES SEE BELOW Normal [facility] Comment on above: Result Comment: ROGELIO RED INR: 2.0 - 3.0 CONDITIONS NOT LISTED BELOW 2.5 - 3.5 FOR PROSTHETIC HEART VALVE REPLACEMENT 2.5 - 3.5 RECURRENT THROMBOSIS Performed By: #### H STROPN, TSH, BNP, BMP #### [facility] [address] [place] [address] Dr. Ivan Seo PT Coag (PPP) [Time] 11.4 s Normal 9.0-11.[address] [facility] Comment on above: Performed By: #### H STROPN, TSH, BNP, BMP #### [facility] [address] [place] [address] Dr. Ivan Seo PTTon 09-10-2022 aPTT Coag (Bld) [Time] 29.9 s Normal 22.3-36.[address] [facility] Comment on above: Performed By: #### H STROPN, TSH, BNP, BMP #### [facility] [address] [place] [address] Dr. Ivan Seo TROPONIN, HIGH SENSITIVITYon 09-10-2022 HSTROP 10.9 pg/mL Normal 4.0-76.[address] [facility] Comment on above: Result Comment: CUT- OFF POINTS HAVE BEEN ESTABLISHED BASED ON THE FOURTH UNIVERSAL DEFINITIONS OF MYOCARDIAL INFARCTION. THE UPPER REFERENCE LIMIT (URL) OF TROPONIN, DEFINED THE 99TH PERCENTILE OF cTnI DISTRIBUTION IN A REFERENCE POPULATION, HAS BEEN CONFIRMED THE DECISION THRESHOLD FOR UT DIAGNOSIS. Performed By: #### H STROPN, TSH, BNP, BMP #### [facility] [address] [place] [address] Dr. Ivan Seo Ambulatory Visit Summaryon 0 09-04-2022 Ambulatory Visit Summary SUJATA REYNA :1975 Visit Date:09/04/2022 Ambulatory Visit Instructions Your Diagnosis BPH with urinary obstruction Impotence Glycosuria Tests Performed Urnls Dip Stick Auto w/o Microscopy POC [id number] Your Care Team Attending Physician - Benton [...] MOLINA, Benton Zurita Where: [facility] Covid-19 PCR (CVDTBH)on 08-26 SARS-CoV-2 (COVID-19) RNA THONG+probe Ql (Unsp spec) Not detected Normal NOT DETECTED [facility] Comment on above: Result Comment: When [...] for this test is supported by the [place] of Health and Human Service's declaration that [...] #### H STROPN, TSH, BNP, BMP #### [facility] [address] [address] [address] Ivan Seo Patient Educationon 09-05-19 23 [...] Follow these instructions at home: ? Take [id number] and prescription medicines only as told by [...] d (more content not included)... Normal Madrigal [facility] Urology Office/Clinic Noteon 09-04-2022 Urology Office/Clinic [...] continue medication management, refill sent today to [facility] in [place]. Follow up in 1 year w/ PSA. [...] Information SIDDHARTHA MOLINA, Benton Zurita, URL [address] [id number] Additional Instructions: 1 year w/ PSA Patient Education Benign Prostatic Hyperplasia uJlia Arechiga, personally scribed for Dr. Carl on [...] Protein Urine Dipstick: Trace (09/04/22 08:22:00) Specific [place] Urine Dipstick: 1.015 (09/04/22 08:22:00) Urine Appearance Urine Dipstick: Clear (09/04/22 (more content not included)... Normal [facility] Comment on above: Result Comment: Elec [...] and Entresto bid. Please advise. Thanks. Normal [facility] BASIC METABOLIC PANELon 03-0 Anion gap [Moles/Vol] 11 mmol/L Normal - [facility] Comment on above: Performed By: #### L [id number] ####[facility] [place] [address] Calcium [Mass/Vol] 9.4 mg/dL Normal 8.6-10.3 [facility] Comment on above: Performed By: #### L [id number] ####[facility] [place] [address] Chloride [Moles/Vol] 102 mmol/L Normal 98-107 [facility] Comment on above: Performed By: #### L [id number] ####[facility] [place] [address] CO2 [Moles/Vol] 27 mmol/L Normal - [facility] Comment on above: Performed By: #### L [id number] ####[facility] [place] [address] Creatinine [Mass/Vol] 0.83 mg/dL Normal 0.70-1.30 [facility] Comment on above: Performed By: #### L [id number] ####[facility] [place] [address] GLOMERULAR FILTRATION RATE ML/MIN/1.73 SQ M.PREDICTED 108.0 mL/min/1.73m*2 Normal >60.0 [facility] Comment on above: Result Comment: [facility]???s estimated glomerular filtration rate (eGFR) will [...] of individuals. Performed By: #### L [id number] ####[facility] [place] [address] Glucose [Mass/Vol] 87 mg/dL Normal 70-100 [facility] Comment on above: Performed By: #### L [id number] ####[facility] [place] [address] Potassium [Moles/Vol] 3.7 mmol/L Normal 3.5-5.1 [facility] Comment on above: Performed By: #### L [id number] ####[facility] [place] [address] Sodium [Moles/Vol] 136 mmol/L Normal 136-145 [facility] Comment on above: Performed By: #### L [id number] ####[facility] [place] [address] Urea nitrogen [Mass/Vol] 13 mg/dL Normal 7-25 [facility] Comment on above: Performed By: #### L [id number] ####[facility] [place] [address] UREA NITROGEN/CREATININE (MASS RATIO) IN SER/PLAS 15.7 Normal [facility] Comment on above: Performed By: #### L [id number] ####[facility] [place] [address] CBCon 09-02-2022 Erythrocyte distribution width (RBC) [Ratio] 12.9 % Normal 11.5-15.0 [facility] Comment on above: Performed By: #### L [id number] #### [facility] [address] [place] [address] ERYTHROCYTE MEAN CORPUSCULAR HEMOGLOBIN CONCENTRATION (G/DL) BY AUTOMATED 34.8 g/dL Normal 32.0-35.0 [facility] Comment on above: Performed By: #### L [id number] #### [facility] [address] [place] [address] Hematocrit (Bld) [Volume fraction] 42.3 % Normal 39.0-55.0 [facility] Comment on above: Performed By: #### L [id number] #### [facility] [address] [place] [address] Hemoglobin (Bld) [Mass/Vol] 14.7 g/dL Normal 13.0-17.0 [facility] Comment on above: Performed By: #### L [id number] #### [facility] [address] [place] [address] MCH (RBC) [Entitic mass] 30.7 pg Normal 27.0-33.0 [facility] Comment on above: Performed By: #### L [id number] #### [facility] [address] [place] [address] MCV (RBC) [Entitic vol] 88.3 fL Normal 82.0-98.0 [facility] Comment on above: Performed By: #### L [id number] #### [facility] [address] [place] [address] PLATELETS (10*3/UL) IN BLOOD AUTOMATED COUNT 238 10*3/uL Normal 150-400 [facility] Comment on above: Performed By: #### L [id number] #### [facility] [address] [place] [address] RBC (Bld) [#/Vol] 4.79 10*6/uL Normal 4.20-5.70 [facility] Comment on above: Performed By: #### L [id number] #### [facility] [address] [place] [address] WBC (Bld) [#/Vol] 7.90 10*3/uL Normal 4.00-10.60 [facility] Comment on above: Performed By: #### L [id number] #### [facility] [address] [place] [address] Orders Onlyon 09-02-2022 Orders Only [id number] Sujata Reyna 1975 M Date Provider Department Center 09/02/2022 ISA LOO [facility] ALEJANDRINA [place] No family history on file [facility] 2022 30 Problem: Pain - Adul t [...] goals for the shift include VSS Normal [facility] NURSNOTEon 2022 NURSNOTE CV NCDR CATHPCI V5 COLLECTION FORM [facility] B-TYPE NATRIURETIC PEPTIDEon 08-31-2022 Natriuretic peptide B (Bld) [Mass/Vol] 49 pg/mL Normal 0-100 [facility] Comment on above: Performed By: #### L [id number] ####[facility] [place] [address] HPon 08-31-2022 HP H&P reviewed. The patient was examined and there are no changes to the H&P. [facility] NURSNOTEon 08-31-2022 NURSNOTE [facility] notified report ing nurse that patient had a heart rate of 177 with PSVT. Patient stated he felt flutters in his chest twice while sitting on the side of the bed. Doctors orders will continue to be followed. [facility] 08-30-2022 30 The patient is Moderately Stable - Low risk of patient condition declining or worsening The patient's goals for the shift include comfort The clinical goals for the shift include VSS Problem: Pain - Adult Goal: Verbalizes/displays adequate comfort level or baseline comfort level Outcome: Progressing Problem: Safety - Adult Goal: Free from fall injury Outcome: Progressing Normal [facility] 30 The patient is Moderately Stable [...] and maintained or improved Outcome: Progressing Normal [facility] 30 The patient is Moderately Stable [...] and behaviors that affect risk of falls [place] fall precautions as indicated by assessment Educate [...] and maintained or improved Outcome: Progressing Normal [facility] 30on 08-29-2022 30 The patient is [...] and maintained or improved Outcome: Progressing Normal [facility] CONSULTon 08-29-2022 CONSULT --- Attestation signed [...] sweating. He was evaluated in ED at [facility]- was noted on ECG to have [...] w/o reversible ischemia. He was sent to [facility] for further management and coronary angiography. Past [...] General: Norm (more content not included)... Normal [facility] HPon 08-29-2022 HP --- Attestation signed [...] sweating. He was evaluated in ED at [facility]- was noted on ECG to have [...] w/o reversible ischemia. He was sent to [facility] for further management and coronary angiography. Past [...] General: Norm (more content not included)... Normal [facility] NURSNOTEon 08-29-2022 NURSNOTE Patient complaining of chest pain, cardiology notified. Cardiology also notified of patient's telemetry changes this AM. States will see him and let you know. RN will continue to monitor. Normal [facility] 30on 08-28-2022 30 The patient is [...] and maintained or improved Outcome: Progressing Normal [facility] 30 The patient is Moderately Stable - Low risk of patient condition declining or worsening The patient's goals for the shift include no pain The clinical goals for the shift include VSS Normal [facility] APTTon 08-28-2022 ACTIVATED PARTIAL THROMBOPLASTIN TIME IN PPP BY COAGULATION ASSAY 26.7 Seconds Normal 25.0-35.0 [facility] Comment on above: Performed By: #### L [id number] ####[facility] [facility] [place] [address] B-TYPE NATRIURETIC PEPTIDEon 08-28-2022 Natriuretic peptide B (Bld) [Mass/Vol] 23 pg/mL Normal 0-100 [facility] Comment on above: Performed By: #### L [id number] #### [facility] ([facility]) [address] [place] [address] CBC WITH AUTO DIFFERENTIALon 08-28-2022 Basophils (Bld) [#/Vol] 0.05 10*3/uL Normal 0.00-0.20 [facility] Comment on above: Performed By: #### L [id number] #### [facility] ([facility]) [address] [place] [address] Basophils/100 WBC (Bld) 0.7 % Normal 0.0-1.0 [facility] Comment on above: Performed By: #### L [id number] #### [facility] ([facility]) [address] [place] [address] Eosinophils (Bld) [#/Vol] 0.15 10*3/uL Normal 0.00-0.50 [facility] Comment on above: Performed By: #### L [id number] #### [facility] [address] [place] [address] Eosinophils/100 WBC (Bld) 2.0 % Normal 0.0-6.0 [facility] Comment on above: Performed By: #### L [id number] #### [facility] ([facility]) [address] [place] [address] Erythrocyte distribution width (RBC) [Ratio] 12.8 % Normal 11.5-15.0 [facility] Comment on above: Performed By: #### L [id number] #### [facility] ([facility]) [address] [place] [address] ERYTHROCYTE MEAN CORPUSCULAR HEMOGLOBIN CONCENTRATION (G/DL) BY AUTOMATED 33.5 g/dL Normal 32.0-35.0 [facility] Comment on above: Performed By: #### L [id number] #### [facility] ([facility]) [address] [place] [address] Hematocrit (Bld) [Volume fraction] 41.8 % Normal 39.0-55.0 [facility] Comment on above: Performed By: #### L [id number] #### [facility] ([facility]) [address] [place] [address] Hemoglobin (Bld) [Mass/Vol] 14.0 g/dL Normal 13.0-17.0 [facility] Comment on above: Performed By: #### L [id number] #### [facility] ([facility]) [address] [place] [address] Immature granulocytes (Bld) [#/Vol] 0.04 10*3/uL Normal 0.00-0.20 [facility] Comment on above: Performed By: #### L [id number] #### [facility] ([facility] [address] [place] [address] Immature granulocytes/100 WBC (Bld) 0.5 % Normal 0.0-1.0 [facility] Comment on above: Performed By: #### L [id number] #### [facility] ([facility] [address] [place] [address] Lymphocytes (Bld) [#/Vol] 1.75 10*3/uL Normal 1.20-4.00 [facility] Comment on above: Performed By: #### L [id number] #### [facility] ([facility]) [address] [place] [address] Lymphocytes/100 WBC (Bld) 23.1 % Normal 20.0-45.0 [facility] Comment on above: Performed By: #### L [id number] #### [facility] ([facility]) [address] [place] [address] MCH (RBC) [Entitic mass] 30.5 pg Normal 27.0-33.0 [facility] Comment on above: Performed By: #### L [id number] #### [facility] ([facility]) [address] [place] [address] MCV (RBC) [Entitic vol] 91.1 fL Normal 82.0-98.0 [facility] Comment on above: Performed By: #### L [id number] #### [facility] ([facility]) [address] [place] [address] Monocytes (Bld) [#/Vol] 0.66 10*3/uL Normal 0.10-1.00 [facility] Comment on above: Performed By: #### L [id number] #### [facility] ([facility]) [address] [place] [address] Monocytes/100 WBC (Bld) 8.7 % Normal 5.0-12.0 [facility] Comment on above: Performed By: #### L [id number] #### [facility] ([facility]) [address] [place] [address] Neutrophils (Bld) [#/Vol] 4.91 10*3/uL Normal 1.60-7.60 [facility] Comment on above: Performed By: #### L [id number] #### [facility] ([facility]) [address] [place] [address] Neutrophils/100 WBC (Bld) 65.0 % Normal 40.0-72.0 [facility] Comment on above: Performed By: #### L [id number] #### [facility] ([facility]) [address] [place] [address] NRBC (PER 100 WBCS) BY AUTOMATED COUNT 0.0 % Normal 0.0-0.0 [facility] Comment on above: Performed By: #### L [id number] #### [facility] ([facility]) [address] [place] [address] PLATELETS (10*3/UL) IN BLOOD AUTOMATED COUNT 293 10*3/uL Normal 150-400 [facility] Comment on above: Performed By: #### L [id number] #### [facility] ([facility]) [address] [place] [address] RBC (Bld) [#/Vol] 4.59 10*6/uL Normal 4.20-5.70 [facility] Comment on above: Performed By: #### L [id number] #### [facility] ([facility]) [address] [place] [address] WBC (Bld) [#/Vol] 7.56 10*3/uL Normal 4.00-10.60 [facility] Comment on above: Performed By: #### L [id number] #### [facility] ([facility]) [address] [place] [address] COMPREHENSIVE METABOLIC PANE Massimo 08-28-2022 Albumin [Mass/Vol] 4.6 g/dL Normal 3.5-5.7 [facility] Comment on above: Performed By: #### L [id number] #### [facility] ([facility]) [address] [place] [address] ALP [Catalytic activity/Vol] 95 U/L Normal 34-104 [facility] Comment on above: Performed By: #### L [id number] #### [facility] ([facility]) [address] [place] [address] ALT [Catalytic activity/Vol] 75 U/L High 7-52 [facility] Comment on above: Performed By: #### L [id number] #### [facility] ([facility]) [address] [place] [address] Anion gap [Moles/Vol] 12 mmol/L Normal 7-20 [facility] Comment on above: Performed By: #### L [id number] #### [facility] ([facility]) [address] [place] [address] AST [Catalytic activity/Vol] 28 U/L Normal 13-39 [facility] Comment on above: Performed By: #### L [id number] #### [facility] ([facility]) [address] [place] [address] Bilirubin [Mass/Vol] 0.7 mg/dL Normal 0.3-1.0 [facility] Comment on above: Performed By: #### L [id number] #### [facility] ([facility]) [address] [place] [address] Calcium [Mass/Vol] 9.8 mg/dL Normal 8.6-10.3 [facility] Comment on above: Performed By: #### L [id number] #### [facility] ([facility]) [address] [place] [address] Chloride [Moles/Vol] 104 mmol/L Normal 98-107 [facility] Comment on above: Performed By: #### L [id number] #### [facility] ([facility]) [address] [place] [address] CO2 [Moles/Vol] 27 mmol/L Normal 21-31 [facility] Comment on above: Performed By: #### L [id number] #### [facility] ([facility]) [address] [place] [address] Creatinine [Mass/Vol] 0.82 mg/dL Normal 0.70-1.30 [facility] Comment on above: Performed By: #### L [id number] #### [facility] ([facility]) [address] [place] [address] GLOMERULAR FILTRATION RATE ML/MIN/1.73 SQ M.PREDICTED 109.0 mL/min/1.73m*2 Normal >60.0 [facility] Comment on above: Result Comment: The [facility]???s estimated glomerular filtration rate (eGFR) will [...] individuals. Performed By: #### L [id number] #### [facility] ([facility]) [address] [place] [address] Glucose [Mass/Vol] 77 mg/dL Normal 70-100 [facility] Comment on above: Performed By: #### L [id number] #### [facility] ([facility]) [address] [place] [address] Potassium [Moles/Vol] 3.7 mmol/L Normal 3.5-5.1 [facility] Comment on above: Performed By: #### L [id number] #### [facility] ([facility]) [address] [place] [address] Protein [Mass/Vol] 7.9 g/dL Normal 6.0-8.3 [facility] Comment on above: Performed By: #### L [id number] #### [facility] ([facility]) [address] [place] [address] Sodium [Moles/Vol] 139 mmol/L Normal 136-145 [facility] Comment on above: Performed By: #### L [id number] #### [facility] ([facility]) [address] [place] [address] Urea nitrogen [Mass/Vol] 11 mg/dL Normal 7-25 [facility] Comment on above: Performed By: #### L [id number] #### [facility] ([facility]) [address] [place] [address] UREA NITROGEN/CREATININE (MASS RATIO) IN SER/PLAS 13.4 Normal [facility] Comment on above: Performed By: #### L [id number] #### [facility] ([facility]) [address] [place] [address] EDPROVon 08-28-2022 EDPROV HPI Chief Complaint Patient presents with Chest Pain Pt from home to [facility] with c/o generalized chest pain x2 weeks. Cardiology called on this pt. He had an abnormal stress test at [place] yesterday. Pt reports lightheadedness and mild SOB [...] Diagnoses as of 08/28/22 1527 Unstable angina [facility] Medical Decision Making Attestation: I performed a history and physical exam on this patient and discussed his or her management with the resident. I reviewed the resident's note and agree with the documented findings and plan of care with the following exceptions: Provider Statement ANEESH: Provider Statement [facility] (more content not included)... Normal [facility] MAGNESIUMon 08-28-2022 Magnesium [Mass/Vol] 2.1 mg/dL Normal 1.9-2.7 [facility] Comment on above: Performed By: #### L [id number] #### [facility] ([facility]) [address] [place] [address] Office Visiton 08-28-2022 Follow-up visit [id number] Sujata Reyna 1975 M Date Provider Department Center 08/28/2022 Keshav-ISA RINCON CARD [facility] No family history on file Level of Service:78769 SD OFFICE/OUTPATIENT [facility] 60-74 MINUTES Reason for Visit and Comments: Establish Care [42] - Patient had a stress test 08/27/2022 and failed the test Normal [facility] PROTIME-INRon 08-28-2022 INR IN PPP BY COAGULATION ASSAY 1.08 Normal 0.90-1.10 [facility] Comment on above: Result Comment: ACCC [...] 1995;[id number]. Performed By: #### L [id number] #### [facility] ([facility]) [address] [place] [address] PROTHROMBIN TIME (PT) IN PPP BY COAGULATION ASSAY 13.9 Seconds Normal 12.3-14.8 [facility] Comment on above: Performed By: #### L [id number] #### [facility] ([facility]) [address] [place] [address] TROPONIN Ion 08-28-2022 Troponin I.cardiac [Mass/Vol] 0.00 ng/mL Normal 0.00-0.04 [facility] Comment on above: Performed By: #### L [id number] #### [facility] ([facility]) [address] [place] [address] NM STRESS/REST MULTIon 08-27 NM STRESS/REST MULTI Patient: SUJATA REYNA Exam Date: 08/27/2022 : 1975 Gender:M Ordering : DR JOSH BACH . Admission #: [id number] Family : Order #: [id number] CLICK HERE TO VIEW EXAM RADIOLOGY REPORT [...] anteroseptal. Basal inferoseptal. Basal inferior. Mid-inferoseptal. Mid-inferior. Loving. SIZE: Large (5 or more segments). SEVERITY: [...] MD on 08/27/2022 at 15:[address] [facility] CBC AUTO DIFFon 08-20-2022 BASO # 0.0 103/ul Normal 0.0-0.1 [facility] Comment on above: Performed By: #### M G, BMP #### [facility] [address] [place] [address] Dr. Ivan Seo Basophils/100 WBC (Bld) 0.5 % Normal 0.2-2.0 [facility] Comment on above: Performed By: #### M G, BMP #### [facility] [address] [place] [address] Dr. Ivan Seo EO # 0.2 103/ul Normal 0.0-0.7 [facility] Comment on above: Performed By: #### M G, BMP #### [facility] [address] [place] [address] [address] Ivan Seo Eosinophils/100 WBC (Bld) 2.9 % Normal 0.9-7.0 [facility] Comment on above: Performed By: #### M G, BMP #### [facility] [address] [place] [address] Dr. Ivan Seo Erythrocyte distribution width (RBC) [Ratio] 13.0 % Normal 11.0-15.0 [facility] Comment on above: Performed By: #### M G, BMP #### [facility] [address] [place] [address] Dr. Ivan Seo Hematocrit (Bld) [Volume fraction] 41.4 % Critically low 42.0-54.0 [facility] Comment on above: Performed By: #### M G, BMP #### [facility] [address] [place] [address] Dr. Ivan Seo Hemoglobin (Bld) [Mass/Vol] 13.9 g/dL Critically low 14.0-18.0 [facility] Comment on above: Performed By: #### M G, BMP #### [facility] [address] [place] [address] Dr. Ivan Seo IG # 0.04 10e3/ul Critically high 0.00-0.03 [facility] Comment on above: Performed By: #### M G, BMP #### [facility] [address] [place] [address] Dr. Ivan Seo IG % 0.5 % Normal 0.0-0.5 [facility] Comment on above: Performed By: #### M G, BMP #### [facility] [address] [place] [address] Dr. Ivan Seo LYMPH # 2.2 103/ul Normal 1.2-3.8 [facility] Comment on above: Performed By: #### M G, BMP #### [facility] [address] [place] [address] Dr. Ivan Seo Lymphocytes/100 WBC (Bld) 29.2 % Normal 20.5-60.0 [facility] Comment on above: Performed By: #### M G, BMP #### [facility] [address] [place] [address] Dr. Ivan Seo MANUAL DIFF REQ NO Normal [facility] Comment on above: Performed By: #### M G, BMP #### [facility] [address] [place] [address] Dr. Ivan Seo MCH (RBC) [Entitic mass] 30.5 pg Normal 25.9-34.0 [facility] Comment on above: Performed By: #### M G, BMP #### [facility] [address] [place] [address] Dr. Ivan Seo MCHC (RBC) [Mass/Vol] 33.6 g/dL Normal 29.9-35.2 [facility] Comment on above: Performed By: #### M G, BMP #### [facility] [address] [place] [address] Dr. Ivan Seo MCV (RBC) [Entitic vol] 91.0 fL Normal 80.0-94.[address] [facility] Comment on above: Performed By: #### M G, BMP #### [facility] [address] [place] [address] Dr. Ivan Seo MONO # 0.8 103/ul Normal 0.3-0.8 [facility] Comment on above: Performed By: #### M G, BMP #### [facility] [address] [place] [address] Dr. Ivan Seo Monocytes/100 WBC (Bld) 10.5 % Normal 1.7-12.0 [facility] Comment on above: Performed By: #### M G, BMP #### [facility] [address] [place] [address] Dr. Ivan Seo NEUT # 4.3 103/ul Normal 1.4-6.5 [facility] Comment on above: Performed By: #### M G, BMP #### [facility] [address] [place] [address] Dr. Ivan Seo Neutrophils/100 WBC (Bld) 56.4 % Normal 43.0-75.[address] [facility] Comment on above: Performed By: #### M G, BMP #### [facility] [address] [place] [address] Dr. Ivan Seo Platelet mean volume (Bld) [Entitic vol] 9.3 fL Critically low 9.5-13.5 [facility] Comment on above: Performed By: #### M G, BMP #### [facility] [address] [place] [address] Dr. Ivan Seo PLT 264 103/ul Normal 150-[address] [facility] Comment on above: Performed By: #### M G, BMP #### [facility] [address] [place] [address] Dr. Ivan Seo RBC 4.55 106/ul Critically low 4.70-6.10 [facility] Comment on above: Performed By: #### M G, BMP #### [facility] [address] [place] [address] Dr. Ivan Seo WBC 7.7 103/ul Normal 4.0-11.0 [facility] Comment on above: Performed By: #### M G, BMP #### [facility] [address] [place] [address] Dr. Ivan Seo MAGNESIUMon 08-20-2022 Magnesium [Mass/Vol] 2.0 mg/dL Normal 1.8-2.4 [facility] Comment on above: Performed By: #### M G, BMP #### [facility] [address] [place] [address] Dr. Ivan Seo PROF CHEM 8 (BAS METB)on Anion gap [Moles/Vol] 12.9 mmol/L Normal [facility] Comment on above: Performed By: #### M G, BMP #### [facility] [address] [place] [address] Dr. Ivan Seo Calcium [Mass/Vol] 9.0 mg/dL Normal 8.5-10.1 [facility] Comment on above: Performed By: #### Neelima G, BMP #### [facility] [address] [place] [address] Dr. Ivan Seo Chloride [Moles/Vol] 104 mmol/L Normal 98-[address] [facility] Comment on above: Performed By: #### M G, BMP #### [facility] [address] [place] [address] Dr. Ivan Seo CO2 [Moles/Vol] 24.9 mmol/L Normal 21.0-32.0 [facility] Comment on above: Performed By: #### M G, BMP #### [facility] [address] [place] [address] Dr. Ivan Seo Creatinine [Mass/Vol] 0.82 mg/dL Normal 0.70-1.30 [facility] Comment on above: Performed By: #### M G, BMP #### [facility] [address] [place] [address] Dr. Ivan Seo EGFR-AF CITIZEN [place] >60 Normal >=60 [facility] Comment on above: Performed By: #### M G, BMP #### [facility] [address] [place] [address] [address] Ivan Seo EGFR-NON AF CITIZEN OF [place] >60 Normal >=60 [facility] Comment on above: Performed By: #### M G, BMP #### [facility] [address] [place] [address] [address] Ivan Seo Glucose [Mass/Vol] 94 mg/dL Normal 74-106 [facility] Comment on above: Performed By: #### M G, BMP #### [facility] [address] [place] [address] Dr. Ivan Seo Potassium [Moles/Vol] 3.8 mmol/L Normal 3.5-5.1 [facility] Comment on above: Performed By: #### M G, BMP #### [facility] [address] [place] [address] Dr. Ivan Seo Sodium [Moles/Vol] 138 mmol/L Normal 136-145 [facility] Comment on above: Performed By: #### M G, BMP #### [facility] [address] [place] [address] Dr. Ivan Seo Urea nitrogen [Mass/Vol] 11.0 mg/dL Normal 7.0-18.0 [facility] Comment on above: Performed By: #### M G, BMP #### [facility] [address] [address] [address] Ivan Seo Urea nitrogen/Creatinine [Mass ratio] 13.4 mg/mg Normal [facility] Comment on above: Performed By: #### M G, BMP #### [facility] [address] [place] [address] Dr. Ivan Seo TROPONIN, HIGH SENSITIVITYon 08-20-2022 HSTROP 8.3 pg/mL Normal 4.0-76.[address] [facility] Comment on above: Result Comment: CUT- OFF POINTS HAVE BEEN ESTABLISHED BASED ON THE FOURTH UNIVERSAL DEFINITIONS OF MYOCARDIAL INFARCTION. THE UPPER REFERENCE LIMIT (URL) OF TROPONIN, DEFINED THE 99TH PERCENTILE OF cTnI DISTRIBUTION IN A REFERENCE POPULATION, HAS BEEN CONFIRMED THE DECISION THRESHOLD FOR UT DIAGNOSIS. Performed By: #### H STROPN, TSH, BNP, BMP #### [facility] [address] [place] [address] Dr. Ivan Seo CARDIAC EDWARDO 3-6on 3 CK [Catalytic activity/Vol] 110 U/L Normal 39-[address] [facility] Comment on above: Performed By: #### H STROPN, TSH, BNP, BMP #### [facility] [address] [place] [address] Dr. Ivan Seo CK.MB [Mass/Vol] 0.77 ng/mL Normal <=3.60 [facility] Comment on above: Performed By: #### H STROPN, TSH, BNP, BMP #### [facility] [address] [place] [address] Dr. Ivan Seo HSTROP 6.1 pg/mL Normal 4.0-76.[address] [facility] Comment on above: Result Comment: CUT- OFF POINTS HAVE BEEN ESTABLISHED BASED ON THE FOURTH UNIVERSAL DEFINITIONS OF MYOCARDIAL INFARCTION. THE UPPER REFERENCE LIMIT (URL) OF TROPONIN, DEFINED THE 99TH PERCENTILE OF cTnI DISTRIBUTION IN A REFERENCE POPULATION, HAS BEEN CONFIRMED THE DECISION THRESHOLD FOR UT DIAGNOSIS. Performed By: #### H STROPN, TSH, BNP, BMP #### [facility] [address] [place] [address] Dr. Ivan Seo CK [Catalytic activity/Vol] 113 U/L Normal 39-[address] [facility] Comment on above: Performed By: #### H STROPN, TSH, BNP, BMP #### [facility] [address] [place] [address] Dr. Ivan Seo CK.MB [Mass/Vol] 0.62 ng/mL Normal <=3.60 [facility] Comment on above: Performed By: #### H STROPN, TSH, BNP, BMP #### [facility] [address] [place] [address] Dr. Ivan Seo HSTROP 7.4 pg/mL Normal 4.0-76.[address] [facility] Comment on above: Result Comment: CUT- OFF POINTS HAVE BEEN ESTABLISHED BASED ON THE FOURTH UNIVERSAL DEFINITIONS OF MYOCARDIAL INFARCTION. THE UPPER REFERENCE LIMIT (URL) OF TROPONIN, DEFINED THE 99TH PERCENTILE OF cTnI DISTRIBUTION IN A REFERENCE POPULATION, HAS BEEN CONFIRMED THE DECISION THRESHOLD FOR [place] DIAGNOSIS. Performed By: #### H STROPN, TSH, BNP, BMP #### [facility] [address] [place] [address] Dr. Ivan Seo CBC AUTO DIFFon 08-19-2022 BASO # 0.0 103/ul Normal 0.0-0.1 [facility] Comment on above: Performed By: #### H STROPN, TSH, BNP, BMP #### [facility] [address] [place] [address] Dr. Ivan Seo Basophils/100 WBC (Bld) 0.5 % Normal 0.2-2.0 [facility] Comment on above: Performed By: #### H STROPN, TSH, BNP, BMP #### [facility] [address] [place] [address] Dr. Ivan Seo EO # 0.2 103/ul Normal 0.0-0.[address] [facility] Comment on above: Performed By: #### H STROPN, TSH, BNP, BMP #### [facility] [address] [place] [address] Dr. Ivan Seo Eosinophils/100 WBC (Bld) 2.9 % Normal 0.9-7.0 [facility] Comment on above: Performed By: #### H STROPN, TSH, BNP, BMP #### [facility] [address] [place] [address] Dr. Ivan Seo Erythrocyte distribution width (RBC) [Ratio] 12.7 % Normal 11.0-15.0 [facility] Comment on above: Performed By: #### H STROPN, TSH, BNP, BMP #### [facility] [address] [place], [place] [address] Dr. Ivan Seo Hematocrit (Bld) [Volume fraction] 40.2 % Critically low 42.0-54.0 [facility] Comment on above: Performed By: #### H STROPN, TSH, BNP, BMP #### [facility] [address] [address] [address] Ivan Seo Hemoglobin (Bld) [Mass/Vol] 13.6 g/dL Critically low 14.0-18.0 [facility] Comment on above: Performed By: #### H STROPN, TSH, BNP, BMP #### [facility] [address] [address] [address] Ivan Seo IG # 0.06 10e3/ul Critically high 0.00-0.03 [facility] Comment on above: Performed By: #### H STROPN, TSH, BNP, BMP #### [facility] [address] [place] [address] Dr. Ivan Seo IG % 0.8 % Critically high 0.0-0.5 [facility] Comment on above: Performed By: #### H STROPN, TSH, BNP, BMP #### [facility] [address] [address] [address] Ivan Seo LYMPH # 2.0 103/ul Normal 1.2-3.8 [facility] Comment on above: Performed By: #### H STROPN, TSH, BNP, BMP #### [facility] [address] [address] [address] Ivan Seo Lymphocytes/100 WBC (Bld) 26.9 % Normal 20.5-60.0 [facility] Comment on above: Performed By: #### H STROPN, TSH, BNP, BMP #### [facility] [address] [address] [address] Ivan Seo MANUAL DIFF REQ NO Normal [facility] Comment on above: Performed By: #### H STROPN, TSH, BNP, BMP #### [facility] [address] [place] [address] Dr. Ivan Seo MCH (RBC) [Entitic mass] 30.4 pg Normal 25.9-34.0 [facility] Comment on above: Performed By: #### H STROPN, TSH, BNP, BMP #### [facility] [address] [place] [address] Dr. Ivan Seo MCHC (RBC) [Mass/Vol] 33.8 g/dL Normal 29.9-35.[address] [facility] Comment on above: Performed By: #### H STROPN, TSH, BNP, BMP #### [facility] [address] [place] [address] Dr. Ivan Seo MCV (RBC) [Entitic vol] 89.9 fL Normal 80.0-94.[address] [facility] Comment on above: Performed By: #### H STROPN, TSH, BNP, BMP #### [facility] [address] [place] [address] Dr. Ivan Seo MONO # 0.8 103/ul Normal 0.3-0.[address] [facility] Comment on above: Performed By: #### H STROPN, TSH, BNP, BMP #### [facility] [address] [place] [address] Dr. Ivan Seo Monocytes/100 WBC (Bld) 9.9 % Normal 1.7-12.[address] [facility] Comment on above: Performed By: #### H STROPN, TSH, BNP, BMP #### [facility] [address] [place] [address] Dr. Ivan Seo NEUT # 4.5 103/ul Normal 1.4-6.[address] [facility] Comment on above: Performed By: #### H STROPN, TSH, BNP, BMP #### [facility] [address] [place] [address] Dr. Ivan Seo Neutrophils/100 WBC (Bld) 59.0 % Normal 43.0-75.[address] [facility] Comment on above: Performed By: #### H STROPN, TSH, BNP, BMP #### [facility] [address] [place] [address] Dr. Ivan Seo Platelet mean volume (Bld) [Entitic vol] 9.1 fL Critically low 9.5-13.[address] [facility] Comment on above: Performed By: #### H STROPN, TSH, BNP, BMP #### [facility] [address] [address] [address] Ivan Seo PLT 245 103/ul Normal 150-450 [facility] Comment on above: Performed By: #### H STROPN, TSH, BNP, BMP #### [facility] [address] [address] [address] Ivan Seo RBC 4.47 106/ul Critically low 4.70-6.10 [facility] Comment on above: Performed By: #### H STROPN, TSH, BNP, BMP #### [facility] [address] [address] [address] Ivan Seo WBC 7.6 103/ul Normal 4.0-11.0 [facility] Comment on above: Performed By: #### H STROPN, TSH, BNP, BMP #### [facility] [address] [place] [address] Dr. Ivan Seo DRUG SCREEN RAPID (URINE)on 08-19-2022 AMP Negative Normal NEGATIVE [facility] Comment on above: Performed By: #### H STROPN, TSH, BNP, BMP #### [facility] [address] [address] [address] Ivan Seo BAR Negative Normal NEGATIVE [facility] Comment on above: Performed By: #### H STROPN, TSH, BNP, BMP #### [facility] [address] [address] [address] Ivan Seo BUP Negative Normal NEGATIVE [facility] Comment on above: Performed By: #### H STROPN, TSH, BNP, BMP #### [facility] [address] [address] [address] Ivan Seo BZO Negative Normal NEGATIVE [facility] Comment on above: Performed By: #### H STROPN, TSH, BNP, BMP #### [facility] [address] [place] [address] Dr. Ivan Seo VONNIE Negative Normal NEGATIVE [facility] Comment on above: Performed By: #### H STROPN, TSH, BNP, BMP #### [facility] [address] [address] [address] Ivan Seo CUT-OFFS SEE BELOW Normal [facility] Comment on above: Result Comment: AMP (Amphetamine): [...] #### H STROPN, TSH, BNP, BMP #### [facility] [address] [place] [address] Dr. Ivan Seo DRUG CUT HEADER DRUG CLASS TEST SYST EM CUT-OFF CONCENTRATIONS ARE FOLLOWS: Normal [facility] Comment on above: Performed By: #### H STROPN, TSH, BNP, BMP #### [facility] [address] [place] [address] Dr. Ivan Seo mAMP Negative Normal NEGATIVE [facility] Comment on above: Performed By: #### H STROPN, TSH, BNP, BMP #### [facility] [address] [place] [address] Dr. Ivan Seo MTD Negative Normal NEGATIVE [facility] Comment on above: Performed By: #### H STROPN, TSH, BNP, BMP #### [facility] [address] [place] [address] Dr. Ivan Seo OPI Negative Normal NEGATIVE [facility] Comment on above: Performed By: #### H STROPN, TSH, BNP, BMP #### [facility] [address] [place] [address] Dr. Ivan Seo OXY Negative Normal NEGATIVE [facility] Comment on above: Performed By: #### H STROPN, TSH, BNP, BMP #### [facility] [address] [place] [address] Dr. Ivan Seo PCP Negative Normal NEGATIVE [facility] Comment on above: Performed By: #### H STROPN, TSH, BNP, BMP #### [facility] [address] [address] [address] Ivan Seo PPX Negative Normal NEGATIVE [facility] Comment on above: Performed By: #### H STROPN, TSH, BNP, BMP #### [facility] [address] [address] [address] Ivan Seo TCA Negative Normal NEGATIVE [facility] Comment on above: Performed By: #### H STROPN, TSH, BNP, BMP #### [facility] [address] [address] [address] Ivan Seo THC Negative Normal NEGATIVE [facility] Comment on above: Performed By: #### H STROPN, TSH, BNP, BMP #### [facility] [address] [address] [address] Ivan Seo ECHOCARDIO M/2D COMPLETEon 0 08-19-2022 ECHOCARDIO M/2D COMPLETE Patient: SUJATA REYNA Exam Date: 08/19/2022 : 1975 Gender:M Ordering : DR JOSH BCAH . Admission #: [id number] Family : Order #: [id number] CLICK HERE TO VIEW EXAM ECHOCARDIOGRAM REPORT [...] Colon M.D. on 08/19/2022 at 12:34 Normal [facility] LIPID PROFILEon 08-19-2022 CHOL-HDL RATIO NORM SEE BELOW Normal [facility] Comment on above: Result Comment: 3.3 - 4.4 LOW RISK 4.4 - 7.1 AVERAGE RISK 7.1 - 11.0 MODERATE RISK >11.0 HIGH RISK Performed By: #### H STROPN, TSH, BNP, BMP #### [facility] [address] [address] [address] Ivan Seo Cholesterol [Mass/Vol] 213 mg/dL Critically high <=200 [facility] Comment on above: Performed By: #### H STROPN, TSH, BNP, BMP #### [facility] [address] [address] [address] Ivan Seo Cholesterol in HDL [Mass/Vol] 40 mg/dL Normal 40-60 [facility] Comment on above: Performed By: #### H STROPN, TSH, BNP, BMP #### [facility] [address] [address] [address] Ivan Seo Cholesterol in LDL [Mass/Vol] 147.0 mg/dL Normal [facility] Comment on above: Performed By: #### H STROPN, TSH, BNP, BMP #### [facility] [address] [address] [address] Ivan Seo Cholesterol.total/Ch olesterol in HDL [Mass ratio] 5.3 {ratio} Normal [facility] Comment on above: Performed By: #### H STROPN, TSH, BNP, BMP #### [facility] [address] [address] [address] Ivan Seo HDL NORMAL > or = 60 mg/dl - LO W CARDIOVASCULAR RISK <40 mg/dl - HIGH CARDIOVASCULAR RISK Normal [facility] Comment on above: Performed By: #### H STROPN, TSH, BNP, BMP #### [facility] [address] [address] [address] Ivan Seo LDL CALC NORMAL SEE BELOW Normal [facility] Comment on above: Result Comment: <100 mg/dl OPTIMAL 100 - 129 mg/dl NEAR OR ABOVE OPTIMAL 130 - 159 mg/dl BORDERLINE HIGH 160 - 189 mg/dl HIGH >190 mg/dl VERY HIGH Performed By: #### H STROPN, TSH, BNP, BMP #### [facility] [address] [address] [address] Ivan Seo Triglyceride [Mass/Vol] 130 mg/dL Normal <=150 [facility] Comment on above: Performed By: #### H STROPN, TSH, BNP, BMP #### [facility] [address] [address] [address] Ivan Seo VLDL CALC 26.0 mg/dL Normal [facility] Comment on above: Performed By: #### H STROPN, TSH, BNP, BMP #### [facility] [address] [address] [address] Ivan Seo MAGNESIUMon 08-19-2022 Magnesium [Mass/Vol] 2.0 mg/dL Normal 1.8-2.4 [facility] Comment on above: Performed By: #### H STROPN, TSH, BNP, BMP #### [facility] [address] [address] [address] Ivan Seo PROF CHEM 8 (BAS METB)on Anion gap [Moles/Vol] 12.5 mmol/L Normal [facility] Comment on above: Performed By: #### H STROPN, TSH, BNP, BMP #### [facility] [address] [address] [address] Ivan Seo Calcium [Mass/Vol] 8.8 mg/dL Normal 8.5-10.1 [facility] Comment on above: Performed By: #### H STROPN, TSH, BNP, BMP #### [facility] [address] [address] [address] Ivan Seo Chloride [Moles/Vol] 104 mmol/L Normal 98-[address] [facility] Comment on above: Performed By: #### H STROPN, TSH, BNP, BMP #### [facility] [address] [address] [address] Ivan Seo CO2 [Moles/Vol] 26.4 mmol/L Normal 21.0-32.0 [facility] Comment on above: Performed By: #### H STROPN, TSH, BNP, BMP #### [facility] [address] [address] [address] Ivan Seo Creatinine [Mass/Vol] 0.89 mg/dL Normal 0.70-1.30 [facility] Comment on above: Performed By: #### H STROPN, TSH, BNP, BMP #### [facility] [address] [place] [address] Dr. Ivan Seo EGFR-AF CITIZ[place] >60 Normal >=60 [facility] Comment on above: Performed By: #### H STROPN, TSH, BNP, BMP #### [facility] [address] [place] [address] Dr. Ivan Seo EGFR-NON AF CITIZEN OF [place] >60 Normal >=60 [facility] Comment on above: Performed By: #### H STROPN, TSH, BNP, BMP #### [facility] [address] [place] [address] Dr. Ivan Seo Glucose [Mass/Vol] 103 mg/dL Normal 74-106 [facility] Comment on above: Performed By: #### H STROPN, TSH, BNP, BMP #### [facility] [address] [address] [address] Ivan Seo Potassium [Moles/Vol] 3.9 mmol/L Normal 3.5-5.1 [facility] Comment on above: Performed By: #### H STROPN, TSH, BNP, BMP #### [facility] [address] [address] [address] Ivan Seo Sodium [Moles/Vol] 139 mmol/L Normal 136-145 [facility] Comment on above: Performed By: #### H STROPN, TSH, BNP, BMP #### [facility] [address] [place] [address] Dr. Ivan Seo Urea nitrogen [Mass/Vol] 12.0 mg/dL Normal 7.0-18.0 [facility] Comment on above: Performed By: #### H STROPN, TSH, BNP, BMP #### [facility] [address] [place] [address] Dr. Ivan Seo Urea nitrogen/Creatinine [Mass ratio] 13.5 mg/mg Normal [facility] Comment on above: Performed By: #### H STROPN, TSH, BNP, BMP #### [facility] [address] [place] [address] Dr. Ivan Seo BNPon 08-18-2022 Natriuretic peptide B (Bld) [Mass/Vol] 77.0 pg/mL Normal <=450.0 [facility] Comment on above: Performed By: #### H STROPN, TSH, BNP, BMP #### [facility] [address] [place] [address] Dr. Ivan Seo CBC AUTO DIFFon 08-18-2022 BASO # 0.0 103/ul Normal 0.0-0.1 [facility] Comment on above: Performed By: #### H STROPN, TSH, BNP, BMP #### [facility] [address] [place] [address] Dr. Ivan Seo Basophils/100 WBC (Bld) 0.4 % Normal 0.2-2.0 [facility] Comment on above: Performed By: #### H STROPN, TSH, BNP, BMP #### [facility] [address] [place] [address] Dr. Ivan Seo EO # 0.2 103/ul Normal 0.0-0.7 [facility] Comment on above: Performed By: #### H STROPN, TSH, BNP, BMP #### [facility] [address] [place] [address] Dr. Ivan Seo Eosinophils/100 WBC (Bld) 2.7 % Normal 0.9-7.0 [facility] Comment on above: Performed By: #### H STROPN, TSH, BNP, BMP #### [facility] [address] [address] [address] Ivan Seo Erythrocyte distribution width (RBC) [Ratio] 12.7 % Normal 11.0-15.0 [facility] Comment on above: Performed By: #### H STROPN, TSH, BNP, BMP #### [facility] [address] [place] [address] Dr. Ivan Seo Hematocrit (Bld) [Volume fraction] 39.8 % Critically low 42.0-54.0 [facility] Comment on above: Performed By: #### H STROPN, TSH, BNP, BMP #### [facility] [address] [place] [address] Dr. Ivan Seo Hemoglobin (Bld) [Mass/Vol] 13.9 g/dL Critically low 14.0-18.0 [facility] Comment on above: Performed By: #### H STROPN, TSH, BNP, BMP #### [facility] [address] [place] [address] Dr. Ivan Seo IG # 0.04 10e3/ul Critically high 0.00-0.03 [facility] Comment on above: Performed By: #### H STROPN, TSH, BNP, BMP #### [facility] [address] [place] [address] Dr. Ivan Seo IG % 0.5 % Normal 0.0-0.[address] [facility] Comment on above: Performed By: #### H STROPN, TSH, BNP, BMP #### [facility] [address] [place] [address] Dr. Ivan Seo LYMPH # 2.4 103/ul Normal 1.2-3.[address] [facility] Comment on above: Performed By: #### H STROPN, TSH, BNP, BMP #### [facility] [address] [place] [address] Dr. Ivan Seo Lymphocytes/100 WBC (Bld) 29.4 % Normal 20.5-60.[address] [facility] Comment on above: Performed By: #### H STROPN, TSH, BNP, BMP #### [facility] [address] [place] [address] Dr. Ivan Seo MANUAL DIFF REQ NO Normal [facility] Comment on above: Performed By: #### H STROPN, TSH, BNP, BMP #### [facility] [address] [place] [address] Dr. Ivan Seo MCH (RBC) [Entitic mass] 31.1 pg Normal 25.9-34.0 [facility] Comment on above: Performed By: #### H STROPN, TSH, BNP, BMP #### [facility] [address] [place] [address] Dr. Ivan Seo MCHC (RBC) [Mass/Vol] 34.9 g/dL Normal 29.9-35.2 [facility] Comment on above: Performed By: #### H STROPN, TSH, BNP, BMP #### [facility] [address] [place] [address] Dr. Ivan Seo MCV (RBC) [Entitic vol] 89.0 fL Normal 80.0-94.0 [facility] Comment on above: Performed By: #### H STROPN, TSH, BNP, BMP #### [facility] [address] [place] [address] Dr. Ivan Seo MONO # 0.8 103/ul Normal 0.3-0.8 [facility] Comment on above: Performed By: #### H STROPN, TSH, BNP, BMP #### [facility] [address] [place] [address] Dr. Ivan Seo Monocytes/100 WBC (Bld) 9.4 % Normal 1.7-12.0 [facility] Comment on above: Performed By: #### H STROPN, TSH, BNP, BMP #### [facility] [address] [place] [address] Dr. Ivan Seo NEUT # 4.8 103/ul Normal 1.4-6.5 [facility] Comment on above: Performed By: #### H STROPN, TSH, BNP, BMP #### [facility] [address] [place] [address] Dr. Ivan Seo Neutrophils/100 WBC (Bld) 57.6 % Normal 43.0-75.0 [facility] Comment on above: Performed By: #### H STROPN, TSH, BNP, BMP #### [facility] [address] [address] [address] Ivan Seo Platelet mean volume (Bld) [Entitic vol] 9.2 fL Critically low 9.5-13.5 [facility] Comment on above: Performed By: #### H STROPN, TSH, BNP, BMP #### [facility] [address] [address] [address] Ivan Seo PLT 262 103/ul Normal 150-[address] [facility] Comment on above: Performed By: #### H STROPN, TSH, BNP, BMP #### [facility] [address] [place] [address] Dr. Ivan Seo RBC 4.47 106/ul Critically low 4.70-6.10 [facility] Comment on above: Performed By: #### H STROPN, TSH, BNP, BMP #### [facility] [address] [address] [address] Ivan Seo WBC 8.3 103/ul Normal 4.0-11.0 [facility] Comment on above: Performed By: #### H STROPN, TSH, BNP, BMP #### [facility] [address] [place] [address] Dr. Ivan Seo Covid-19 PCR ([facility])on 07-30 SARS-CoV-2 (COVID-19) RNA THONG+probe Ql (Unsp spec) Not detected Normal NOT DETECTED [facility] Comment on above: Result Comment: When [...] for this test is supported by the [place] of Health and Human Service's declaration that [...] #### H STROPN, TSH, BNP, BMP #### [facility] [address] [place] [address] Dr. Ivan Seo FREE T3on 08-18-2022 FREE T3 3.10 pg/mlL Normal 2.18-3.98 [facility] Comment on above: Performed By: #### M G, BMP #### [facility] [address] [place] [address] Dr. Ivan Seo FREE T4on 08-18-2022 Free T4 [Mass/Vol] 0.90 ng/dL Normal 0.76-1.46 [facility] Comment on above: Performed By: #### M G, BMP #### [facility] [address] [place] [address] Dr. Ivan Seo PROF CHEM 8 (BAS METB)on Anion gap [Moles/Vol] 10.4 mmol/L Normal [facility] Comment on above: Performed By: #### H STROPN, TSH, BNP, BMP #### [facility] [address] [place] [address] Dr. Ivan Seo Calcium [Mass/Vol] 9.1 mg/dL Normal 8.5-10.1 [facility] Comment on above: Performed By: #### H STROPN, TSH, BNP, BMP #### [facility] [address] [place] [address] Dr. Ivan Seo Chloride [Moles/Vol] 101 mmol/L Normal 98-[address] [facility] Comment on above: Performed By: #### H STROPN, TSH, BNP, BMP #### [facility] [address] [place] [address] Dr. Ivan Seo CO2 [Moles/Vol] 30.1 mmol/L Normal 21.0-32.0 [facility] Comment on above: Performed By: #### H STROPN, TSH, BNP, BMP #### [facility] [address] [place] [address] Dr. Ivan Seo Creatinine [Mass/Vol] 0.97 mg/dL Normal 0.70-1.30 [facility] Comment on above: Performed By: #### H STROPN, TSH, BNP, BMP #### [facility] [address] [address] [address] Ivan Seo EGFR-AF CITIZ[place] >60 Normal >=60 [facility] Comment on above: Performed By: #### H STROPN, TSH, BNP, BMP #### [facility] [address] [place] [address] Dr. Ivan Seo EGFR-NON AF CITIZEN OF [place] >60 Normal >=60 [facility] Comment on above: Performed By: #### H STROPN, TSH, BNP, BMP #### [facility] [address] [place] [address] Dr. Ivan Seo Glucose [Mass/Vol] 109 mg/dL Critically high 74-106 [facility] Comment on above: Performed By: #### H STROPN, TSH, BNP, BMP #### [facility] [address] [place] [address] Dr. Ivan Seo Potassium [Moles/Vol] 3.5 mmol/L Normal 3.5-5.1 [facility] Comment on above: Performed By: #### H STROPN, TSH, BNP, BMP #### [facility] [address] [place] [address] Dr. Ivan Seo Sodium [Moles/Vol] 138 mmol/L Normal 136-145 [facility] Comment on above: Performed By: #### H STROPN, TSH, BNP, BMP #### [facility] [address] [place] [address] Dr. Ivan Seo Urea nitrogen [Mass/Vol] 17.0 mg/dL Normal 7.0-18.0 [facility] Comment on above: Performed By: #### H STROPN, TSH, BNP, BMP #### [facility] [address] [address] [address] Ivan Seo Urea nitrogen/Creatinine [Mass ratio] 17.5 mg/mg Normal [facility] [facility] Comment on above: Performed By: #### H STROPN, TSH, BNP, BMP #### [facility] [address] [address] [address] Ivan Seo TROPONIN, HIGH SENSITIVITYon 08-18-2022 HSTROP 5.7 pg/mL Normal 4.0-76.1 [facility] Comment on above: Result Comment: CUT- OFF POINTS HAVE BEEN ESTABLISHED BASED ON THE FOURTH UNIVERSAL DEFINITIONS OF MYOCARDIAL INFARCTION. THE UPPER REFERENCE LIMIT (URL) OF TROPONIN, DEFINED THE 99TH PERCENTILE OF cTnI DISTRIBUTION IN A REFERENCE POPULATION, HAS BEEN CONFIRMED THE DECISION THRESHOLD FOR UT DIAGNOSIS. Performed By: #### H STROPN, TSH, BNP, BMP #### [facility] [address] [address] [address] Ivan Seo HSTROP 6.8 pg/mL Normal 4.0-76.1 [facility] Comment on above: Result Comment: CUT- OFF POINTS HAVE BEEN ESTABLISHED BASED ON THE FOURTH UNIVERSAL DEFINITIONS OF MYOCARDIAL INFARCTION. THE UPPER REFERENCE LIMIT (URL) OF TROPONIN, DEFINED THE 99TH PERCENTILE OF cTnI DISTRIBUTION IN A REFERENCE POPULATION, HAS BEEN CONFIRMED THE DECISION THRESHOLD FOR UT DIAGNOSIS. Performed By: #### H STROPN, TSH, BNP, BMP #### [facility] [address] [address] [address] Ivan Seo TSHon 08-18-2022 TSH 3.636 uIU/mL Normal 0.358-3.740 [facility] Comment on above: Performed By: #### H STROPN, TSH, BNP, BMP #### [facility] [id number] Ivan Seo XR CHEST 1 Von [...] by: ELENA KNIGHT Date: 2022-08-18 20:09 Normal [facility] Consultation Noteon 06-12-20 Consultation Note [id number]#1.00C D:127 Normal [facility] Lab Reportson 06-12-2022 Lab Reports [id number]#1.00C D:127 Normal [facility] Lab Reports [id number]#1.00C D:127 Normal [facility] Lab Reports [id number]#1.00C D:127 Normal [facility] Patient Correspondenceon Patient Correspondence [id number]#1.00C D:127 Normal [facility] CBC AUTO DIFFon 06-05-2022 BASO # 0.0 103/ul Normal 0.0-0.[address] [facility] Comment on above: Performed By: #### H STROPN, TSH, BNP, BMP #### [facility] [address] [address] [address] Ivan Seo Basophils/100 WBC (Bld) 0.5 % Normal 0.2-2.[address] [facility] Comment on above: Performed By: #### H STROPN, TSH, BNP, BMP #### [facility] [address] [address] [address] Ivan Seo EO # 0.2 103/ul Normal 0.0-0.[address] [facility] Comment on above: Performed By: #### H STROPN, TSH, BNP, BMP #### [facility] [address] [address] [address] Ivan Seo Eosinophils/100 WBC (Bld) 2.1 % Normal 0.9-7.[address] [facility] Comment on above: Performed By: #### H STROPN, TSH, BNP, BMP #### [facility] [address] [address] [address] Ivan Seo Erythrocyte distribution width (RBC) [Ratio] 13.1 % Normal 11.0-15.0 [facility] Comment on above: Performed By: #### H STROPN, TSH, BNP, BMP #### [facility] [address] [place] [address] Dr. Ivan Seo Hematocrit (Bld) [Volume fraction] 41.7 % Critically low 42.0-54.0 [facility] Comment on above: Performed By: #### H STROPN, TSH, BNP, BMP #### [facility] [address] [place] [address] Dr. Ivan Seo Hemoglobin (Bld) [Mass/Vol] 14.2 g/dL Normal 14.0-18.0 [facility] Comment on above: Performed By: #### H STROPN, TSH, BNP, BMP #### [facility] [address] [place] [address] Dr. Ivan Seo IG # 0.06 10e3/ul Critically high 0.00-0.03 [facility] Comment on above: Performed By: #### H STROPN, TSH, BNP, BMP #### [facility] [address] [place] [address] Dr. Ivan Seo IG % 0.8 % Critically high 0.0-0.5 [facility] Comment on above: Performed By: #### H STROPN, TSH, BNP, BMP #### [facility] [address] [place] [address] Dr. Ivan Seo LYMPH # 1.8 103/ul Normal 1.2-3.[address] [facility] Comment on above: Performed By: #### H STROPN, TSH, BNP, BMP #### [facility] [address] [place] [address] Dr. Ivan Seo Lymphocytes/100 WBC (Bld) 23.4 % Normal 20.5-60.0 [facility] Comment on above: Performed By: #### H STROPN, TSH, BNP, BMP #### [facility] [address] [place] [address] Dr. Ivan Seo MANUAL DIFF REQ NO Normal [facility] Comment on above: Performed By: #### H STROPN, TSH, BNP, BMP #### [facility] [address] [place] [address] Dr. Ivan Seo MCH (RBC) [Entitic mass] 30.8 pg Normal 25.9-34.0 [facility] Comment on above: Performed By: #### H STROPN, TSH, BNP, BMP #### [facility] [address] [place] [address] Dr. Ivan Seo MCHC (RBC) [Mass/Vol] 34.1 g/dL Normal 29.9-35.2 [facility] Comment on above: Performed By: #### H STROPN, TSH, BNP, BMP #### [facility] [address] [place] [address] Dr. Ivan Seo MCV (RBC) [Entitic vol] 90.5 fL Normal 80.0-94.0 [facility] Comment on above: Performed By: #### H STROPN, TSH, BNP, BMP #### [facility] [address] [place] [address] Dr. Ivan Seo MONO # 1.1 103/ul Critically high 0.3-0.8 [facility] Comment on above: Performed By: #### H STROPN, TSH, BNP, BMP #### [facility] [address] [place] [address] Dr. Ivan Seo Monocytes/100 WBC (Bld) 14.2 % Critically high 1.7-12.0 [facility] Comment on above: Performed By: #### H STROPN, TSH, BNP, BMP #### [facility] [address] [place] [address] Dr. Ivan Seo NEUT # 4.4 103/ul Normal 1.4-6.5 [facility] Comment on above: Performed By: #### H STROPN, TSH, BNP, BMP #### [facility] [address] [address] [address] Ivan Seo Neutrophils/100 WBC (Bld) 59.0 % Normal 43.0-75.0 [facility] Comment on above: Performed By: #### H STROPN, TSH, BNP, BMP #### [facility] [address] [address] [address] Ivan Seo Platelet mean volume (Bld) [Entitic vol] 9.2 fL Critically low 9.5-13.5 [facility] Comment on above: Performed By: #### H STROPN, TSH, BNP, BMP #### [facility] [address] [address] [address] Ivan Seo PLT 277 103/ul Normal 150-450 [facility] Comment on above: Performed By: #### H STROPN, TSH, BNP, BMP #### [facility] [address] [place] [address] Dr. Ivan Seo RBC 4.61 106/ul Critically low 4.70-6.10 [facility] Comment on above: Performed By: #### H STROPN, TSH, BNP, BMP #### [facility] [address] [address] [address] Ivan Seo WBC 7.5 103/ul Normal 4.0-11.0 [facility] Comment on above: Performed By: #### H STROPN, TSH, BNP, BMP #### [facility] [address] [address] [address] Ivan Seo FREE T3on 06-05-2022 FREE T3 3.34 pg/mlL Normal 2.18-3.98 [facility] Comment on above: Performed By: #### M G, BMP #### [facility] [address] [address] [address] Ivan Seo GLYCOHEMOGLOBIN A1Con 2021 ADA RECOMMENDATION SEE BELOW Normal [facility] Comment on above: Result Comment: ADA RECOMMENDED LIMIT 4.0 - 6.0 ADA THERAPEUTIC TARGET < 7.0 ACTION SUGGESTED > 7.0 Performed By: #### H STROPN, TSH, BNP, BMP #### [facility] [address] [place] [address] Dr. Ivan Seo Glucose [Mass/Vol] 114 mg/dL Normal [facility] Comment on above: Performed By: #### H STROPN, TSH, BNP, BMP #### [facility] [address] [place] [address] Dr. Ivan Seo HbA1c (Bld) [Mass fraction] 5.6 % Normal 4.5-6.2 [facility] Comment on above: Performed By: #### H STROPN, TSH, BNP, BMP #### [facility] [address] [place] [address] Dr. Ivan Seo LIPID PROFILEon 06-05-2022 CHOL-HDL RATIO NORM SEE BELOW Normal [facility] Comment on above: Result Comment: 3.3 - 4.4 LOW RISK 4.4 - 7.1 AVERAGE RISK 7.1 - 11.0 MODERATE RISK >11.0 HIGH RISK Performed By: #### C MP, TSH, FT3, T4, LIPID #### [facility] [address] [place] [address] Dr. Ivan Seo Cholesterol [Mass/Vol] 207 mg/dL Critically high <=200 [facility] Comment on above: Performed By: #### C MP, TSH, FT3, T4, LIPID #### [facility] [address] [place] [address] Dr. Ivan Seo Cholesterol in HDL [Mass/Vol] 46 mg/dL Normal 40-60 [facility] Comment on above: Performed By: #### C MP, TSH, FT3, T4, LIPID #### [facility] [address] [place] [address] Dr. Ivan Seo Cholesterol in LDL [Mass/Vol] 142.8 mg/dL Normal [facility] Comment on above: Performed By: #### C MP, TSH, FT3, T4, LIPID #### [facility] [address] [place] [address] Dr. Ivan Seo Cholesterol.total/Ch olesterol in HDL [Mass ratio] 4.5 {ratio} Normal [facility] Comment on above: Performed By: #### C MP, TSH, FT3, T4, LIPID #### [facility] [address] [address] [address] Ivan Seo HDL NORMAL > or = 60 mg/dl - LO W CARDIOVASCULAR RISK <40 mg/dl - HIGH CARDIOVASCULAR RISK Normal [facility] Comment on above: Performed By: #### C MP, TSH, FT3, T4, LIPID #### [facility] [address] [address] [address] Ivan Seo LDL CALC NORMAL SEE BELOW Normal [facility] Comment on above: Result Comment: <100 mg/dl OPTIMAL 100 - 129 mg/dl NEAR OR ABOVE OPTIMAL 130 - 159 mg/dl BORDERLINE HIGH 160 - 189 mg/dl HIGH >190 mg/dl VERY HIGH Performed By: #### C MP, TSH, FT3, T4, LIPID #### [facility] [address] [address] [address] Ivan Seo Triglyceride [Mass/Vol] 91 mg/dL Normal <=150 [facility] Comment on above: Performed By: #### C MP, TSH, FT3, T4, LIPID #### [facility] [address] [address] [address] Ivan Seo VLDL CALC 18.2 mg/dL Normal [facility] Comment on above: Performed By: #### C MP, TSH, FT3, T4, LIPID #### [facility] [address] [address] [address] Ivan Seo OCC BLD IMMUNO SCREENon OCCULT BLOOD Negative Normal NEGATIVE [facility] Comment on above: Performed By: #### H STROPN, TSH, BNP, BMP #### [facility] [address] [address] [address] Ivan Seo PROF 14(COMP METB)on 022 Albumin [Mass/Vol] 4.0 g/dL Normal 3.4-5.0 [facility] Comment on above: Performed By: #### C MP, TSH, FT3, T4, LIPID #### [facility] [address] [address] [address] Ivan Seo Albumin/Globulin [Mass ratio] 1.1 {ratio} Normal [facility] Comment on above: Performed By: #### C MP, TSH, FT3, T4, LIPID #### [facility] [address] [place] [address] Dr. Ivan Seo ALP [Catalytic activity/Vol] 110 U/L Normal 46-116 [facility] Comment on above: Performed By: #### C MP, TSH, FT3, T4, LIPID #### [facility] [address] [place] [address] Dr. Ivan Seo ALT [Catalytic activity/Vol] 122 U/L Critically high 16-63 [facility] Comment on above: Performed By: #### C MP, TSH, FT3, T4, LIPID #### [facility] [address] [place] [address] Dr. Ivan Seo Anion gap [Moles/Vol] 13.0 mmol/L Normal [facility] Comment on above: Performed By: #### C MP, TSH, FT3, T4, LIPID #### [facility] [address] [place] [address] Dr. Ivan Seo AST [Catalytic activity/Vol] 37 U/L Normal 15-37 [facility] Comment on above: Performed By: #### C MP, TSH, FT3, T4, LIPID #### [facility] [address] [place] [address] Dr. Ivan Seo Bilirubin [Mass/Vol] 0.6 mg/dL Normal 0.2-1.0 [facility] Comment on above: Performed By: #### C MP, TSH, FT3, T4, LIPID #### [facility] [address] [place] [address] Dr. Ivan Seo Calcium [Mass/Vol] 9.3 mg/dL Normal 8.5-10.1 [facility] Comment on above: Performed By: #### C MP, TSH, FT3, T4, LIPID #### [facility] [address] [place] [address] Dr. Ivan Seo Chloride [Moles/Vol] 102 mmol/L Normal 98-107 [facility] Comment on above: Performed By: #### C MP, TSH, FT3, T4, LIPID #### [facility] [address] [place] [address] Dr. Ivan Seo CO2 [Moles/Vol] 29.1 mmol/L Normal 21.0-32.0 [facility] Comment on above: Performed By: #### C MP, TSH, FT3, T4, LIPID #### [facility] [address] [place] [address] Dr. Ivan Soe Creatinine [Mass/Vol] 0.84 mg/dL Normal 0.70-1.30 [facility] Comment on above: Performed By: #### C MP, TSH, FT3, T4, LIPID #### [facility] [address] [place] [address] Dr. Ivan Seo EGFR-AF CITIZEN [place] >60 Normal >=60 [facility] Comment on above: Performed By: #### C MP, TSH, FT3, T4, LIPID #### [facility] [address] [place] [address] Dr. Ivan Seo EGFR-NON AF CITIZEN OF [place] >60 Normal >=60 [facility] Comment on above: Performed By: #### C MP, TSH, FT3, T4, LIPID #### [facility] [address] [place] [address] Dr. Ivan Seo Globulin (S) [Mass/Vol] 3.8 g/dL Normal [facility] Comment on above: Performed By: #### C MP, TSH, FT3, T4, LIPID #### [facility] [address] [place] [address] Dr. Ivan Seo Glucose [Mass/Vol] 106 mg/dL Normal 74-106 [facility] Comment on above: Performed By: #### C MP, TSH, FT3, T4, LIPID #### [facility] [address] [place] [address] Dr. Ivan Seo Potassium [Moles/Vol] 4.1 mmol/L Normal 3.5-5.1 [facility] Comment on above: Performed By: #### C MP, TSH, FT3, T4, LIPID #### [facility] [address] [address] [address] Ivan Seo Protein [Mass/Vol] 7.8 g/dL Normal 6.4-8.2 [facility] Comment on above: Performed By: #### C MP, TSH, FT3, T4, LIPID #### [facility] [address] [place] [address] Dr. Ivan Seo Sodium [Moles/Vol] 140 mmol/L Normal 136-145 [facility] Comment on above: Performed By: #### C MP, TSH, FT3, T4, LIPID #### [facility] [address] [place] [address] Dr. Ivan Seo Urea nitrogen [Mass/Vol] 18.0 mg/dL Normal 7.0-18.0 [facility] Comment on above: Performed By: #### C MP, TSH, FT3, T4, LIPID #### [facility] [address] [place] [address] Dr. Ivan Seo Urea nitrogen/Creatinine [Mass ratio] 21.4 mg/mg Normal [facility] Comment on above: Performed By: #### C MP, TSH, FT3, T4, LIPID #### [facility] [address] [place] [address] Dr. Ivan Seo T4on 06-05-2022 T4 [Mass/Vol] 7.40 ug/dL Normal 4.50-12.10 [facility] Comment on above: Performed By: #### M G, BMP #### [facility] [address] [place] [address] Dr. Ivan Seo TSHon 06-05-2022 TSH 2.196 uIU/mL Normal 0.358-3.740 [facility] Comment on above: Performed By: #### C MP, TSH, FT3, T4, LIPID #### [facility] [address] [place] [address] Dr. Ivan Seo Vital Signs Date Time Vital Sign Value Performing Clinician Facility 05-14-2023 09:16-0500 Diastolic blood pressure 90 mm[Hg] Eduardo REINOSO [facility] 05-14-2023 09:16-0500 Heart rate 70 /min Eduardo NILL [facility] 05-14-2023 09:16-0500 Mean blood pressure 111 mm[Hg] Eduardo NILL [facility] 05-14-2023 09:16-0500 Respiratory rate 19 /min Eduardo NILL [facility] 05-14-2023 09:16-0500 SaO2% (BldA) [Mass fraction] 96 % Eduardo NILL [facility] 05-14-2023 09:16-0500 Systolic blood pressure 153 mm[Hg] Eduardo NILL [facility] 05-14-2023 09:10-0500 Diastolic blood pressure 95 mm[Hg] Eduardo NILL [facility] 05-14-2023 09:10-0500 Heart rate 71 /min Eduardo NILL [facility] 05-14-2023 09:10-0500 Mean blood pressure 110 mm[Hg] Edaurdo NILL [facility] 05-14-2023 09:10-0500 Respiratory rate 16 /min Eduardo NILL [facility] 05-14-2023 09:10-0500 SaO2% (BldA) [Mass fraction] 97 % Eduardo NILL [facility] 05-14-2023 09:10-0500 Systolic blood pressure 141 mm[Hg] Eduardo NILL [facility] 05-14-2023 09:05-0500 Diastolic blood pressure 95 mm[Hg] Eduardo NILL [facility] 05-14-2023 09:05-0500 Heart rate 71 /min Eduardo NILL [facility] 05-14-2023 09:05-0500 Respiratory rate 18 /min Eduardo NILL [facility] 05-14-2023 09:05-0500 SaO2% (BldA) [Mass fraction] 97 % Eduardo NILL [facility] 05-14-2023 09:05-0500 Systolic blood pressure 141 mm[Hg] Eduardo NILL [facility] 05-14-2023 09:00-0500 Mean blood pressure 105 mm[Hg] Eduardo NILL [facility] 05-14-2023 08:55-0500 Body temperature 97.7 [degF] Eduardo NILL [facility] 05-14-2023 08:50-0500 Respiratory rate 23 /min Eduardo NILL [facility] 05-14-2023 08:45-0500 Respiratory rate 20 /min Eduardo NILL [facility] 05-14-2023 08:40-0500 Respiratory rate 21 /min Eduardo NILL [facility] 05-14-2023 07:03-0500 Blood Pressure Location Eduardo NILL [facility] 05-14-2023 07:03-0500 Body temperature 98.24 [degF] Eduardo NILL [facility] 04-14-2023 13:09-0400 Blood Pressure Location Eduardo NILL [facility] [place] [facility] 04-14-2023 13:09-0400 Diastolic blood pressure 84 mm[Hg] Eduardo NILL [facility] [place] 04-14-2023 13:09-0400 Heart rate 72 /min Eduardo NILL [facility] [place] 04-14-2023 13:09-0400 Respiratory rate 16 /min Eduardo REINOSO [facility] [place] 04-14-2023 13:09-0400 Systolic blood pressure 118 mm[Hg] Eduardo REINOSO [facility] [place] 09-04-2022 08:24-0500 Blood Pressure Location B[facility] CARL [facility] 09-04-2022 08:24-0500 Diastolic blood pressure 70 mm[Hg] Benton CARL [facility] 09-04-2022 08:24-0500 Systolic blood pressure 124 mm[Hg] B[facility] CARL [facility] Encounters Encounter Date Encounter Type Care Provider Facility Start: 07-20-2023 End: 07-20-2023 ambulatory [facility] Start: 06-14-2023 ambulatory [facility] Start: 06-14-2023 End: 06-14-2023 ambulatory [facility] Start: 05-26-2023 End: 05-27-2023 ambulatory Eduardo R JAMEL Facility:[facility] Start: 05-14-2023 End: 05-15-2023 ambulatory Eduardo R NILL [facility] Start: 05-14-2023 End: 05-14-2023 Patient encounter procedure Eduardo R NILL [facility] Start: 05-04-2023 End: 05-04-2023 ambulatory [facility] Start: 04-23-2023 End: 04-23-2023 ambulatory [facility] Start: 04-14-2023 End: 04-15-2023 ambulatory Josh Bach Facility:[facility] Start: 04-14-2023 End: 04-14-2023 Patient encounter procedure Eduardo REINOSO [facility] Start: 03-23-2023 End: 03-23-2023 ambulatory [facility] Start: 03-04-2023 ambulatory Eduardo REINOSO Facility:[facility] Start: 11-13-2022 End: 11-13-2022 ambulatory [facility] Start: 11-05-2022 End: 11-05-2022 ambulatory [facility] Start: 10-20-2022 End: 10-20-2022 ambulatory [facility] Start: 10-02-2022 End: 10-02-2022 ambulatory [facility] Start: 09-25-2022 ambulatory [facility] Start: 09-25-2022 End: 09-26-[address] JOSH BACH . Facility:[facility] Start: 09-14-2022 End: 09-14-2022 [facility] Start: 09-11-2022 End: 09-12-2022 Evaluation and management of inpatient DR JOSH BACH . Facility:[facility] Start: 09-04-2022 End: 09-04-[address] JOSH BACH . Facility:[facility] Start: 09-04-2022 End: 09-05-2022 ambulatory Benton CARL Facility:[facility] Start: 09-04-2022 End: 09-04-2022 Patient encounter procedure [facility] CARL [facility] Start: 09-02-2022 End: 09-03-2022 ambulatory [facility] Start: 08-28-2022 End: 09-02-2022 Evaluation and management of inpatient EDDIE SCOTT [facility] Start: 08-28-2022 Emergency department patient visit SHIRA EMILY [facility] Start: 08-28-2022 End: 08-28-2022 ambulatory ISA RINCON [facility] Start: 08-27-2022 End: 08-28-[address] JOSH BACH . Facility:[facility] Start: 08-18-2022 End: 08-20-[address] JOSH BACH . Facility:[facility] Start: 06-08-2022 Encounter for genera l adult medical examination without abnormal findings DR OJSH BACH . [facility] Start: 06-05-2022 End: 06-06-[address] [...] Performed By: #### M G, BMP #### [facility] [address] [place] [address] Dr. Ivan Seo Cardiac ablation usi ng fluoroscopy guidance [facility] CARL Hernia repair [facility] Repair of right ingu inal hernia Eduardo REINOSO Plan of Treatment Date Care Activity Detail Author Start: 09-03-2023 ambulatory Ambulatory Facility:[facility] [place] Immunizations Immunization Date Immunization Notes Care Provider Fa cilisteven 03-25-2020 [email or web address] [facility] [facility] 04-03-2019 influenza virus vaccine, live, attenuated, for intranasal use Benton CARL [facility] NEGATED: Highlighted row has not occurred!09-12-2021 SARS-CoV-2 (COVID-19) Ad26 vaccine, recombinant Benton CARL [facility] Payers Date Payer Category Payer Unknown [id number] 2.16.84 [id number] 1974 Unknown [id number] 2.16.84 [id number] 1974 Unknown [id number] 2.16.84 [id number] 1974 Unknown [id number] 2.16.84 [id number] 1974 Unknown [id number] 2.16.84 [id number] 1974 Unknown [id number] 2.16.84 [id number] 1974 Unknown [id number] 2.16.8 [id number] 1974 Unknown [id number] 2.16.8 [id number] 1974 Unknown [id number] 2.16.8 [id number] 1974 Unknown [id number] 2.16.8 [id number] 1974 Unknown [id number] 2.16.8 [id number] 1959 Unknown [id number] Social History Date Type Detail Facility Start: 09-04-2022 End: 04-14-2023 Tobacco smoking status Ex-smoker (finding) [facility] Comment on above: Quit 2008 Sex Assigned At Male [facility] Tobacco smoking status Never [facility] [place] Comment on above: Quit 2008 Functional Status Date Assessment Result Facility 05-14-2023 Functional Status N/A [facility] 04-14-2023 Functional Status N/A [facility] [place] 09-04-2022 Functional Status N/A [facility] [place] Clinical Notes 08-28-2022 to 07-20-2023 Note Date & Type Note Facility 07-20-2023 Note TX Electrophysiology Consult Note [facility] Reason for visit: svt, nsvt, [...] monitor placed due to being admitted at [facility] for chest discomfort and acute PE. [...] was not done. Since his discharge from [facility], he was admitted to [facility] for chest pain. He was found to have an acute PE and was started on Eliquis. BLE doppler showed small nonocclusive right femoral vein thrombus. He also noted that he had also traveled down to [place] via car the few days prior to episode. Since his admission at [facility] last week, he has been feeling [...] of Systems Constitutional (more content not included)... [facility] 07-20-2023 Note Patient here for fol low up ablation. Denies chest pain, SOB, palpitations, and bleeding on Eliquis. Says sometimes he feels something that's hard for him to describe. Says his BP continues to run high despite the increase in metoprolol to 100mg bid. Review of Systems All other systems reviewed and are negative. [facility] 06-14-2023 Note OMPREHENSIVE EP STUD Y & POSTEROSEPTAL PATHWAY ABLATION PROCEDURE NOTE DATE OF PROCEDURE: 06/14/2023 PERFORMING PHYSICIAN: Dr. Rishabh Burkett MACHINE MAINTENANCE: Dr Stone Cloud INDICATIONS FOR PROCEDURE: 1. [...] was not done. Since his discharge from [facility], he was admitted to [facility] for chest pain. He was found [...] performed CTI ablation (more content not included)... [facility] 06-14-2023 Note Patient: Sujata shukla Procedure Information Date/Time: 06/14/23 0830 Procedure: Ablation atrial flutter - to be scheduled before end of yr due to insurance Location: [facility] MUSEUM TOUR GUIDE 1 EP / [facility]ULAR [facility] (Cath) Providers: Rishabh Burkett MD Clinical information reviewed: Allergies Meds Physical Exam Airway Mallampati: II TM distance: >3 FB Neck ROM: full Cardiovascular Dental Pulmonary Abdominal Anesthesia Plan ASA 2 CSE Anesthetic plan and risks discussed with patient. Use of blood products discussed with patient who. Additional Equipment Requests [facility] 05-17-2023 Note [id number] [facility] 05-14-2023 Hospital Discharge instructions Patient Education [...] unsweetened, w/added ascorbic acid 1 cup 0.5 [place] 1 cup 0.7 Vegetables Cooked Green beans 1 cup 4.0 Carrots 1/2 cup sliced 2.3 Peas 1 cup 8.8 Potato (baked, with skin) 1 medium potato 3.8 Raw Pound (with peel) 1 cucumber 1.5 Lettuce 1 [...] 8.7 Peanuts 1/2 cup 7.9 Chart from [facility] 2013. SEEK IMMEDIATE MEDICAL CARE IF: You [...] Information adapted from: ExitCare Patient Information 2009 [employer]. [employer] 2012 [email or web address] Follow Up Care 04/14/2023 14:21:37 With:Eduardo REINOSO Address: Shanna Crow, [address] [address]- Business (1) When:7 to 10 days [facility] 05-14-2023 Note Patient: MARCO REYNA Age: 47 years Sex: Male : 1975 Associated Diagnoses: None Author: Eduardo REINOSO MD Subjective no changes to [facility] Comment on above: Result Comment: Elec [...] an ARB and consider an additional medication [facility] 05-04-2023 Note TX Electrophysiology Consult Note [facility] Reason for visit: svt, nsvt, s/p loop, s/p avnrt ablation Date of Telehealth Visit: 05/04/2023 The patient was notified that using 3rd alliance party telecommunication application (e.g., NextDocs) is not HIPPA compliant and may carry some privacy risks. Yes The visit was conducted [id number] with the use of audio and video [...] monitor placed due to being admitted at [facility] for chest discomfort and acute PE. [...] was not done. Since his discharge from [facility], he was admitted to [facility] for chest pain. He was found to have an acute PE and was started on Eliquis. BLE doppler showed small nonocclusive right femoral vein thrombus. He also noted that he had also traveled down to [place] via car the few days prior to episode. Since his admission at [facility] last week, he has been feeling better. Chest pain is intermittent but improved. He denies dyspnea,He had an event monitor placed and this revealed NSVT again with symptoms of dizziness. ( Strips attached) PMH- HTN PSH- no pertinent cardiac procedures/surgery FMH- Father passed 48 yo aneurysm- (back of neck), HTN; Social- Former smoker 17 yrs- 1 PPD, rufus (more content not included)... [facility] 04-23-2023 Note Patient here to disc uss medications. Had echo last week. He has concerns with metoprolol and energy level. Denies chest pain and palpitations. Review of Systems Constitutional: Positive for malaise/fatigue. Cardiovascular: Positive for dyspnea on exertion. Neurological: Positive for light-headedness ( when crouched down ). All other systems reviewed and are negative. [facility] 04-23-2023 Note TX Electrophysiology Consult Note [facility] Reason for visit: svt, nsvt, [...] monitor placed due to being admitted at [facility] for chest discomfort and acute PE. [...] was not done. Since his discharge from [facility], he was admitted to [facility] for chest pain. He was found to have an acute PE and was started on Eliquis. BLE doppler showed small nonocclusive right femoral vein thrombus. He also noted that he had also traveled down to [place] via car the few days prior to episode. Since his admission at [facility] last week, he has been feeling [...] (CARDIA) Difficulty o (more content not included)... [facility] 04-14-2023 Note Chief Complaint consultation for [...] Entresto 24 mg-26 (more content not included)... [facility] Comment on above: Result Comment: Elec tronically Signed By: KEMAR MOLINA, Eduardo Galloway\Date and Time Signed: 04/14/23 17:00 EDT 03-23-2023 Note TX Electrophysiology Consult Note [facility] Reason for visit: wound check [...] monitor placed due to being admitted at [facility] for chest discomfort and acute PE. [...] was not done. Since his discharge from [facility], he was admitted to [facility] for chest pain. He was found to have an acute PE and was started on Eliquis. BLE doppler showed small nonocclusive right femoral vein thrombus. He also noted that he had also traveled down to [place] via car the few days prior to episode. Since his admission at [facility] last week, he has been feeling [...] file Physically Abus (more content not included)... [facility] 11-13-2022 Note TX Electrophysiology Consult Note [facility] Reason for visit: wound check [...] monitor placed due to being admitted at [facility] for chest discomfort and acute PE. [...] was not done. Since his discharge from [facility], he was admitted to [facility] for chest pain. He was found to have an acute PE and was started on Eliquis. BLE doppler showed small nonocclusive right femoral vein thrombus. He also noted that he had also traveled down to [place] via car the few days prior to episode. Since his admission at [facility] last week, he has been feeling [...] on file N (more content not included)... [facility] 11-05-2022 Note LOOP IMPLANT PROCEDU RE NOTE DATE OF PROCEDURE: 11/05/2022 PERFORMING PHYSICIAN: Dr. Rishabh Burkett MACHINE MAINTENANCE: EARL INDICATIONS FOR PROCEDURE: 1. SVT/AF surveillance [...] the sternum on the left using the [employer] tool. The loop recorder was then [...] the incision. Rishabh Burkett MD Cardiac Electrophysiology. [facility] 10-20-2022 Note Sujata is here today [...] headaches occasionally). Negative for dizziness and light-headedness. [facility] 10-20-2022 Note TX Electrophysiology Consult Note [facility] Reason for visit: NSVT s/p EP study without ablation HPI: Patient for follow-up s/p EP study/01/17. 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 Post ablation patient continued to have symptoms of palpitations, and an event monitor placed due to being admitted at [facility] for chest discomfort and acute PE. [...] was not done. Since his discharge from [facility], he was admitted to [facility] for chest pain. He was found to have an acute PE and was started on Eliquis. BLE doppler showed small nonocclusive right femoral vein thrombus. He also noted that he had also traveled down to [place] via car the few days prior to episode. Since his admission at [facility] last week, he has been feeling [...] 2.25 m??? Meds: (more content not included)... [facility] 10-02-2022 Note COMPREHENSIVE EP LUIS DY PROCEDURE NOTE DATE OF PROCEDURE: 10/02/2022 PERFORMING PHYSICIAN: Dr. Rishabh Burkett MACHINE MAINTENANCE: Dr Bobby Boyce INDICATIONS FOR PROCEDURE: 1. [...] was not done. Since his discharge from [facility], he was admitted to [facility] for chest pain. He was found to have an acute PE and was started on Eliquis. BLE doppler showed small nonocclusive right femoral vein thrombus. He also noted that he had also traveled down to [place] via car the few days prior to episode. Since his admission at [facility] last week, he has been feeling [...] as needed. Rishabh Burkett MD Cardiac Electrophysiology [facility] 10-02-2022 Note Patient: Sujata shukla Procedure Information Date/Time: 10/02/22 1430 Procedure: EP Study possible ablation - may require anesthesia- to be determined by Dr Burkett Location: [facility] MUSEUM TOUR GUIDE 1 EP / [facility] VASCULAR LAB (Cath) Providers: Rishabh Burkett [...] Additional Equipment Requests- none Bobby Boyce M.D, Software Asset Manager, PGY- [facility]. [facility] 09-25-2022 Note TX Electrophysiology Consult Note Date of Telehealth Visit: 09/25/22 The patient was notified that using 3rd alliance party telecommunication application (e.g., NextDocs) is not HIPPA compliant and may carry some privacy risks. Yes The visit was conducted [id number] with the use of audio and video [...] was not done. Since his discharge from [facility], he was admitted to [facility] for chest pain. He was found to have an acute PE and was started on Eliquis. BLE doppler showed small nonocclusive right femoral vein thrombus. He also noted that he had also traveled down to [place] via car the few days prior to episode. Since his admission at [facility] last week, he has been feeling [...] 10 mg Ta (more content not included)... [facility] 09-25-2022 Note Event monitor urgent report from Dr Burkett for noted non sustained VT- he recommends EPS with possible VT ablation. [facility] 09-25-[address] Burkett notified katia walker via email that event monitor showed non sustained VT. He recommends to schedule pt for EPS/possible VT ablation- orders placed and email sent to Marie Kinney NEWS OPERATIONS MANAGER- EP to call and d/w pt or schedule pt soon for clinic appointment to discuss about planned procedure. Isa Rincon NEWS OPERATIONS MANAGER Division of Cardiology, [facility] [place]- [phone] Pager- [phone] Email- [email or web address] 09-14-2022 Note Review of Systems Cardiovascular: Positive for chest pain, dyspnea on exertion and paroxysmal nocturnal dyspnea. Negative for claudication, cyanosis, irregular heartbeat, leg swelling, near-syncope, orthopnea, palpitations and syncope. Last Wednesday night started having chest pain 10/10 pain level, had to sleep upright in chair, very uncomfortable to lay down. All other systems reviewed and are negative. [facility] 09-14-2022 Note Cardiovascular Medic [facility] SUBJECTIVE Chief Complaint Patient presents with Hospital Follow-up Pt states that he was admitted to [facility] from 09/10-09/12 for an Ablation, tackdallin cardia , had some clots in right lower lung,also had echo completed Sujata Reyna is a 47 y.o. male here for hospital follow-up. HPI 09/14/2022 -Patient was admitted to [facility] for acute HFrEF and unstable angina at the beginning of August. He was found to have normal coronary angiogram. 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 He had an event monitor placed -Since his discharge from [facility], he was admitted to [facility] for chest pain. He was found to have an acute PE and was started on Eliquis. BLE doppler showed small nonocclusive right femoral vein thrombus. He also noted that he had also traveled down to [place] via car the few days prior to episode. -Since his admission at [facility] last week, he has been feeling better. Chest pain is intermittent but improved. He denies dyspnea, dizziness/LH, palpitations, near syncope, LE edema, bleeding issues. Discharge Summary (08/28/2022-09/02/2022) Final Discharge Diagnosis: Unstable angina New onset heart failure NYHA class II Admission Diagnosis: Unstable angina ([facility]) [I20.0] Recurrent PSVT Atypical AV [...] sweating. PT was evaluated in ED at [facility]- was noted on ECG to have [...] palpitations, paroxysmal n (more content not included)... [facility] 09-04-2022 Hospital Discharge instructions Patient Education [...] urethra. Follow these instructions at home: Take bzkz-glj-ddmhein and prescription medicines only as told by [...] 06/14/2006 Document Revised: 05/09/2019 Document Reviewed: 07/19/2017 [employer] Patient Education [employer]. Follow Up Care 09/12/2021 08:41:31 With:SIDDHARTHA MOLINA, Benton Zurita, URL Address: [address] [place] [address]- When: Unknown [facility] 09-02-2022 Note Pt provided with dis charge instructions and education. All questions answered. Meds sent to home pharmacy. Pt walked to main entrance with spouse. [facility] 09-02-2022 Note 30 day event monitor , and echocardiogram in 4-6 weeks. Then F/U with Dr Burkett in about 6 weeks. [facility] 09-02-2022 Note Hospital Medicine Discharge Summary Final Discharge Diagnosis: Unstable angina New onset heart failure NYHA class II Admission Diagnosis: Unstable angina ([facility]) [I20.0] Recurrent PSVT Atypical AV [...] Your Medications These medications were sent to [facility]/pharmacy #[id number] AT CORNER OF [address] [address] dapagliflozin 10 mg metoprolol succinate XL 200 [...] Calles MD Hospital Medicine 09/02/2022 9:25 AM [facility] 09-02-2022 Note Cardiology Progress Note Subjective [...] weeks and f/U with Dr Burkett in [place]. F/U in heart failure clinic in 1 week Discussed with patient/patients family and manager product Dr. Paula, Dr Blas and Dr Madelaine Rincon, LINDA UTP Cardiovascular Medicine [facility] 2022 Note Indications for elec trophysiologic [...] sedation Arterial line placement Adrien Blas M.D. [facility] [employer] Supervisorclerical grader and Pediatrics Director: Cardiac Electrophysiology Program [facility] 2022 Note Patient: Sujata shukla Procedure Information Date/Time: 09/01/22 1535 Procedure: EP Study possible ablation - PSVT- Near syncope- Lt BBB Location: [facility] MUSEUM TOUR GUIDE 1 EP / [facility]ASCULAR [facility] (Cath) Providers: Adrien Blas MD Clinical information reviewed: Allergies Meds Physical Exam Airway Mallampati: I Cardiovascular - normal exam Dental - normal exam Pulmonary - normal exam Abdominal - normal exam Anesthesia Plan Additional Equipment Requests [facility] 2022 Note Hospital Medicine Daily Progress Note - 2022 12:05 PM; Room: [address] [place] [address] Admission: 08/28/2022 12:50 PM; Length of stay: 4 days THE HOSPITALIST TEAM PREFERS TO USE [employer] CHAT FOR COMMUNICATION 7AM-7PM. IF I DO NOT RESPOND WITHIN 15 MINUTES, PLEASE PAGE ME/CALL THROUGH THE ENGRAVER PICTURE. FROM 7PM-7AM, PLEASE PAGE [phone](COVR) Code Status: Full Code Discharge Destination: home [...] cardiovascular stress test PSVT (paroxysmal supraventricular tachycardia) ([facility]) Assessment and Plan -Unstable angina patient underwent [...] for: PREALBUMIN, TSH, T3FREE, FREET4, CORTISOL, FEV1, BQH2XYR, DLCO, RVSP, HDL, LDL No results found for: [id number], IRON, TIBC, C3, C4, HELEN, CANCA, ASO, [...] sedation. 1% lidocaine (more content not included)... [facility] 2022 Note Cardiology Progress Note Subjective [...] tomorrow am. Discussed with patient/patients family and manager product Dr. Paula. Isa Rincon, LINDA UTP Cardiovascular Medicine [facility] 08-31-2022 Note Patient: Sujata shukla Procedure Information Date/Time: 08/31/22 1630 Procedures: Coronary angiography (Bilateral) Right heart cath Location: [facility] MUSEUM TOUR GUIDE 2 BIPLANE / [facility] VASCULAR LAB (Cath) Providers: Geoffrey French [...] consented to blood products. Additional Equipment Requests [facility] 08-31-2022 Note Consult for HF diet education. Pt NPO at this time, pending angiogram today. 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 No other nutrition related concerns. No wt [...] Recommend heart healthy diet when diet advanced. [facility] 08-31-2022 Note Hospital Medicine Daily Progress Note - 08/31/2022 1:38 PM; Room: 3165/3165-01 Admission: 08/28/2022 12:50 PM; Length of stay: 3 days THE HOSPITALIST TEAM PREFERS TO USE [employer] CHAT FOR COMMUNICATION 7AM-7PM. IF I DO NOT RESPOND WITHIN 15 MINUTES, PLEASE PAGE ME/CALL THROUGH THE ENGRAVER PICTURE. FROM 7PM-7AM, PLEASE PAGE [phone](COVR) Code Status: Full Code Discharge Destination: home [...] for: PREALBUMIN, TSH, T3FREE, FREET4, CORTISOL, FEV1, QMG6ZHZ, DLCO, RVSP, HDL, LDL No results found for: [id number], IRON, TIBC, C3, C4, HELEN, CANCA, ASO, [...] Family members Typ (more content not included)... [facility] 08-31-2022 Note Cardiology Progress Note Subjective [...] at discharge. Discussed with patient/patients family and manager product Dr. Paula. Isa Rincon NP UTP Cardiovascular Medicine [facility] 08-31-2022 Note Social Work Note Photo Checker met with patient and at bedside to discuss discharge planning. Patient is from home with ; home is two levels and patient claims to be independent with mobility. No PT/OT ordered. Patient denies [facility] and community resources. can transport home at [place]. Likely no other needs. [facility] 08-30-2022 Note Cardiology Progress Note Subjective [...] chronic systolic heart failure, NYHA class 2 ([facility]) Unstable angina ([facility]) Hypertension Abnormal cardiovascular stress test #Unstable angina #Abnormal stress test - moderate-sized area of moderate severity perfusion defect in anterior wall, inferior wall w/o reversible ischemia #Newly found midrange EF 45-50%, abnormal septal motion, NYHA I-II #LBBB, new #Palpitations #NSVT PLAN: -Patient scheduled for coronary angiogram tomorrow. Discussed risks/benefits, risks including bleeding, infection, renal impairment, stroke, UT, - he states understanding and is agreeable to proceed. Keep NPO after midnight. -GDMT: Metoprolol increased to 100mg BID in light of PSVT episode today, plan to switch to Toprol at discharge. Continue losartan 25mg daily. -Continue ASA, statin. -Given PRN SL nitroglycerin for chest pain. -Consider event monitor at discharge. Discussed with patient/patients family and manager product Dr. Paula. Justus England NP UTP Cardiovascular Medicine [facility] 08-30-2022 Note Hospital Medicine Daily Progress Note - 08/30/2022 11:17 AM; Room: [address] [place] [address] Admission: 08/28/2022 12:50 PM; Length of stay: 2 days THE HOSPITALIST TEAM PREFERS TO USE [employer] CHAT FOR COMMUNICATION 7AM-7PM. IF I DO NOT RESPOND WITHIN 15 MINUTES, PLEASE PAGE ME/CALL THROUGH THE ENGRAVER PICTURE. FROM 7PM-7AM, PLEASE PAGE [phone](COVR) Code Status: Full Code Discharge Destination: home [...] for: PREALBUMIN, TSH, T3FREE, FREET4, CORTISOL, FEV1, PVN0YNV, DLCO, RVSP, HDL, LDL No results found for: [id number], IRON, TIBC, C3, C4, HELEN, CANCA, ASO, [...] Systems: Spouse/significant other Signed Eddie Scott MD [facility] Medicine 08/30/2022 11:17 AM [facility] 08-29-2022 Note [facility] Medicine Daily Progress Note - 08/29/2022 1:28 PM; Room: [facility]5/3165- Admission: 08/28/2022 12:50 PM; Length of stay: 1 days THE HOSPITALIST TEAM PREFERS TO USE [employer] CHAT FOR COMMUNICATION 7AM-7PM. IF I DO NOT RESPOND WITHIN 15 MINUTES, PLEASE PAGE ME/CALL THROUGH THE ENGRAVER PICTURE. FROM 7PM-7AM, PLEASE PAGE [phone](COVR) Code Status: Full Code Discharge Destination: home [...] for: PREALBUMIN, TSH, T3FREE, FREET4, CORTISOL, FEV1, AMT1GHJ, DLCO, RVSP, HDL, LDL No results found for: [id number], IRON, TIBC, C3, C4, HELEN, CANCA, ASO, [...] Scott MD Hospital Medicine 08/29/2022 1:28 PM [facility] [facility] 08-28-2022 Note Hospital Medicine History and Physical 08/28/2022 3:35 PM THE HOSPITALIST TEAM PREFERS TO USE [employer] CHAT FOR COMMUNICATION 7AM-7PM. IF I DO NOT RESPOND WITHIN 15 MINUTES, PLEASE PAGE ME/CALL THROUGH THE ENGRAVER PICTURE. FROM 7PM-7AM, PLEASE PAGE [phone](COVR) Chief Complaint Chest pain History of Present [...] chronic systolic heart failure, NYHA class 2 ([facility]) 08/28/2022 Unstable angina ([facility]) 08/28/2022 Hypertension 08/28/2022 Abnormal cardiovascular [...] this hospital stay by a member of [facility]. Past Medical History Past Medical History: Diagnosis Date Hypertension Past Surgical History Past Surgical Hi (more content not included)... [facility] 08-28-2022 Note [place] heart class II Patient to be admitted today to [facility] for cardiac cath and he will have optimization of goal-directed medical therapy as inpatient and education on heart failure [facility] 08-28-2022 Note Plan admission to [facility] with cardiology consult and plan for cardiac cath today or Wednesday to pendent on inpatient service recommendations, telemetry and further testing [facility] 08-28-2022 Note As above [facility] As [facility] 08-28-2022 Note Palpitations and not ing abnormal heart rhythm per his automatic blood pressure cuff of which is unable to take as blood pressure is concerning for VT and or A-fib Admission and telemetry monitoring He may need 30-day event monitor at discharge [facility] 08-28-2022 Note New left bundle branch block [facility] Reviewed patient's e chocardiogram and stress test EKG and his symptoms with patient and voiced concerns regarding his multiple symptoms and intermittent tachycardia/Palpitations with near syncope- He is agreeable with admission to [facility] today. [facility] called no beds available we will send patient to emergency room. Her [place] updated and he is agreeable with patient being admitted for planned cardiac cath and evaluation with inpatient stay and telemetryFor any significant arrhythmia [facility] 08-28-2022 Note PT with Multiple epi sodes of near syncope with noted chest tightness and palpitations, Concerning for significant arrhythmia of VT Or A-fib [facility] 08-28-2022 Note MP [facility] 08-28-2022 Note UTP CARDIOLOGY PROGR ESS [...] sweating. PT was evaluated in ED at [facility]- was noted on ECG to have [...] syncope- He is agreeable with admission to [facility] today. [facility] called no beds available we will [...] determined by electroca (more content not included)... [facility] 08-28-2022 Note Patient is here toda y to establish care regarding failed stress test. Review of Systems HENT: Positive for hearing loss. Eyes: Positive for vision loss in left eye and vision loss in right eye. Cardiovascular: Positive for palpitations. Respiratory: Positive for cough and snoring. Neurological: Positive for light-headedness. All other systems reviewed and are negative. [facility] Evaluation + Plan note Future Appointments Appointment Date:09/03/2023 08:00:00 AM Scheduled Provider:Benton CARL MD Location:[facility] Appointment Type:URO Office Visit Diagnostic Tests PendingPSA Total 07/29/23 [facility] Evaluation + Plan note Future Appointments Appointment Date:05/14/2023 09:00:00 AM Scheduled Provider: Location:[facility] Appointment Type:Surgery FT Appointment Date:09/03/2023 08:00:00 AM Scheduled Provider:Benton CARL MD Location:[facility] Appointment Type:URO Office Visit General Surgery [place] Evaluation + Plan note Future Appointments Appointment Date:09/03/2023 08:00:00 AM Scheduled Provider:Benton CARL MD Location:[facility] Appointment Type:URO Office Visit [facility] Hospital course Narrative No data available for this section [facility] Hospital Discharge instructions No data available for this section General Surgery [place] Progress note No data available for this section [facility] Summary Purpose Family History No Family [...] Personnel Name: Josh Bach MD Address: Address: [address] [place] [address] Personnel Name: Josh Bach MD Address: Address: [address] [place] [address] Personnel Name: Josh Bach MD Address: Address: [address] [place] [address] (unrecognized sect ion and content) No Status Records FoundNo Status Records FoundNo Status Records Found INFORMATION SOURCE (unrecogn ized section and content) DATE CREATED AUTHOR 11/04/2022 [facility] DATE CREATED AUTHOR AUTHOR'S ORGANIZ ATION 05/31/2023 [facility] DATE CREATED AUTHOR AUTHOR'S ORGANIZ ATION 08/02/2023 [facility] FOR RECORDS PERTAINING TO PATIENTS WHO [...] BE BASED ON THE PRIMARY CLINICAL RECORDS. [employer] [facility]. provides no warranty or guarantee of the accuracy or completeness of information in this document.
== END 2023-08-19 09:26 | disposition home or self-care (01) ==
LOC: LAB 09:26
PROVIDERS: PCP Family Medicine; Visit Provider Nurse Practitioner
DX: I50.41 Acute combined systolic (congestive) and diastolic (congestive) heart failure (principal)
CPT/HCPCS: 36415; 83880

== ENCOUNTER 2023-11-07 02:36 | Emergency (ER) | payer BC, SELFPAY ==
[2023-11-07] VITALS (25 sets, daily range): BP systolic 138–174; BP diastolic 82–104; PULSE 60–95; TEMP 37.2; O2SAT 89–98; BMI 34.0
--- NOTE | 2023-11-07 02:50 | ECG_ITS ---
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
--- OUTSIDE RECORDS SUMMARY | 2023-11-07 02:50 | XMS_ITS | CCD ---
Author Organization [facility] Care Team Providers [employer] Dean Name Role Phone Josh Hull Primary Care Physician MIKALA ., DR MORENO [...] CONNOR Consulting Unavailable NEWATIA, JEAN Consulting Unavailable NORI MCALLISTER Consulting Unavailable HOY ., DR MORENO Attending [...] Unavailable HOY ., DR MORENO Admitting Unavailable NILL, Eduardo R Referring Unavailable NILL, Eduardo R Attending Unavailable NILL, Eduardo R Admitting Unavailable NILL, Eduardo R Attending Unavailable PeteryJosh Referring Unavailable NILL, Eduardo R Attending Unavailable Benton CARL Attending Unavailable MARIE MILLER Attending Unavailable RISHABH VERMA Attending Unavailable MARIE MILLER Attending Unavailable RISHABH VERMA Referring Unavailable RISHABH VERMA Referring Unavailable MARIE MILLER Attending Unavailable JUSTUS LEE Attending Unavailable RISHABH VERMA Admitting Unavailable RISHABH VERMA Attending Unavailable RISHABH VERMA Attending Unavailable Allergies Allergy Classification Reported Allergen(s) Allergy Type Date of Onset Reaction(s) Facility (1 source) No Known Medication Allergies; Translations: [No Known Medication Allergies] Propensity to adverse reactions (disorder) [facility] Repository Medications Current Medications Medication Drug Class(es) Dates Sig (Normalized) Sig (Original) Ascorbic Acid (1 source) Vitamin C Start: 08-23-2019 Vitamin C 1,000 mg, Daily, Refills(s) 0 Start Date: 08/23/19 Status: Ordered aspirin 81 mg delayed release oral tablet (4 sources) Platelet Aggregation Inhibitor, Nonsteroidal Anti-inflammatory Drug [...] Status: Ordered dapagliflozin 10 mg oral tablet (4 sources) Sodium-Glucose Cotransporter 2 Inhibitor Start: 09-04-2022 [...] Ordered metoprolol tartrate 100 mg oral tablet (4 sources) beta-Adrenergic Kristen Start: 09-04-2022 take 100 [...] mg / valsartan 26 mg oral tablet (4 sources) Angiotensin 2 Receptor Kristen Start: 04-07-2023 take 1 tablet by mouth twice daily Entresto 24 mg-26 mg oral tablet 1 tab(s), Oral, BID, Refill(s) 0 Start Date: 04/07/23 Status: Ordered Start: 09-04-2022 sacubitril-isreal sartan Start Date: 09/04/22 Status: Ordered tadalafil 10 mg oral tablet (4 sources) Phosphodiesterase 5 Inhibitor Start: 08-30-2020 Cialis 10 mg Tab 10 mg = 1 tab(s), Oral, As Directed, PRN for erectile dysfunction, # 30 tab(s), Refills(s) 2, [facility]acy: [id number], 175, cm, 08/30/20 8:53:00 EST, Height/Length Dosing, 109, kg, 08/30/20 8:53:00 EST, Weight Dosing Start Date: 08/30/20 Status: Ordered terazosin 10 mg oral capsule (4 sources) alpha-Adrenergic Kristen Start: 07-08-2023 take 1 capsule by mouth once daily terazosin 10 mg Cap 10 mg = 1 cap(s), Oral, Daily, # 90 cap(s), Refills(s) 3, Pharmacy: [facility]/pharmacy #[id number], 175, cm, 05/14/23 6:57:00 EST, Height/Length Dosing, 103.9, kg, 05/14/23 6:57:00 EST, Weight Dosing Start Date: 07/08/23 Status: Ordered Start: 09-04-2022 take 1 capsule by mo uth once daily terazosin 10 mg Cap 10 mg = 1 cap(s), Oral, Daily, # 90 cap(s), Refills(s) 3, Pharmacy: [facility]/pharmacy #[id number], 175, cm, 09/04/22 8:34:00 EST, Height/Length Dosing, 99, kg, 09/04/22 8:34:00 EST, Weight Dosing Start Date: 09/04/22 Status: Ordered Vitamin D3 (1 source) Start: 08-30-2020 Vitamin D3 Ref ills(s) 0 Start Date: 08/30/20 Status: Ordered Problems Active Problems Problem Classification Problem Date Documented Da te Episodic/Chronic Acute bronchitis (1 source) Acute bronchitis, unspecified; Translations: [ACUTE BRONCHITIS UNSPECIFIED] Onset: 3 Episodic Anxiety disorders (3 sources) Anxiety 04-07-2023 Chronic Cardiac dysrhythmias (6 sources) Paroxysmal atrial fibrillation; Translations: [Atrial fibrillation] Onset: 3 04-07-2023 Chronic Chronic obstructive pulmonary disease and bronchiectasis (1 source) Bronchitis, not specified as acute or chronic; Translations: [BRONCHITIS NOT SPEC ACUTE/CHRON] Onset: 3 Episodic Conduction disorders (5 sources) Left bundle branch block; Translations: [Left bundle-branch block, unspecified] Onset: 3 04-07-2023 Chronic Congestive heart failure; nonhypertensive (7 sources) Heart failure, unspecified; Translations: [Acute systolic (congestive) heart failure] Onset: 3 04-07-2023 Chronic Diabetes mellitus without complication (9 sources) Glycosuria; Translations: [Glycosuria] Onset: 2 Episodic Essential hypertension (7 sources) Hypertensive disorder; Translations: [Essential (primary) hypertension] Onset: 3 08-23-2019 Chronic Hyperplasia of prostate (6 sources) Benign prostatic hypertrophy with outflow obstruction; Translations: [Benign prostatic hyperplasia with lower urinary tract symptoms] Onset: 3 Chronic Inflammatory conditions of male genital organs (4 sources) Prostatitis 08-23-2019 Episodic Malaise and fatigue (2 sources) Other fatigue; Translations: [Other fatigue] Onset: 4 Episodic Neoplasms of unspecified nature or uncertain behavior (5 sources) Neoplasm of uncertain behavior of skin; Translations: [Neoplasm of uncertain behavior of skin] Onset: 3 Episodic Nonspecific chest pain (1 source) Chest pain, unspecified; Translations: [CHEST PAIN UNSPECIFIED] Onset: 3 Episodic Other aftercare (1 source) worm packer (current) use of aspirin; Translations: [SKILLED NURSING CURRENT USE OF ASPIRIN] Onset: 3 Episodic Other aftercare (1 source) Other photographic intelligence officer (current) drug therapy; Translations: [OTH LINE RUNNER CURRENT DRUG THERAPY] Onset: 3 Episodic Other and unspecified benign neoplasm (1 source) Lipoma of skin and subcutaneous tissue of limb; Translations: [Benign lipomatous neoplasm of skin and subcutaneous tissue of left arm] Onset: 3 Episodic Other and unspecified benign neoplasm (3 sources) Lipoma of shoulder 04-14-2023 Episodic Other and unspecified benign neoplasm (1 source) Lipoma of skin and subcutaneous tissue of trunk; Translations: [Benign lipomatous neoplasm of skin and subcutaneous tissue of trunk] Onset: 3 Episodic Other and unspecified benign neoplasm (1 source) Dermatofibroma 05-29-2023 Episodic Other circulatory disease (2 sources) Presence of other cardiac implants and grafts; Translations: [Presence of other cardiac implants and grafts] Onset: 4 Chronic Other gastrointestinal disorders (1 source) Hyperplastic polyp of intestine 05-29-2023 Episodic Other liver diseases (4 sources) Liver disease, unspecified; Translations: [LIVER DISEASE UNSPECIFIED] Onset: 3 Chronic Other lower respiratory disease (1 source) Acute respiratory distress; Translations: [ACUTE RESPIRATORY DISTRESS] Onset: 3 Episodic Other lower respiratory disease (1 source) Hypoxemia; Translations: [HYPOXEMIA] Onset: 3 Episodic Other lower respiratory disease (1 source) Dyspnea, unspecified; Translations: [DYSPNEA UNSPECIFIED] Onset: 3 Episodic Other male genital disorders (2 sources) Male erectile dysfunction, unspecified; Translations: [Erectile dysfunction] Onset: 3 Chronic Other male genital disorders (4 sources) Impotence 08-23-2019 Chronic Other nutritional; endocrine; and metabolic disorders (4 sources) Body mass index 30+ - obesity 09-04-2022 Chronic Other nutritional; endocrine; and metabolic disorders (3 sources) Obesity 04-07-2023 Chronic Other screening for suspected conditions (not mental disorders or infectious disease) (6 sources) Abnormal findings on diagnostic imaging of other abdominal regions, including retroperitoneum; Translations: [Abnormal electrocardiogram [ECG] [EKG]] Onset: 3 Episodic Shira-; endo-; and myocarditis; cardiomyopathy (except that caused by tuberculosis or sexually transmitted disease) (5 sources) Cardiomyopathy; Translations: [Other cardiomyopathies] Onset: 4 04-07-2023 Chronic Phlebitis; thrombophlebitis and thromboembolism (1 source) Acute embolism and thrombosis of right femoral vein; Translations: [ACUTE EMBO THROMBOS RT FEMORAL VEIN] Onset: 3 Episodic Pleurisy; pneumothorax; pulmonary collapse (1 source) Pleurisy; Translations: [PLEURISY] Onset: 3 Episodic Pulmonary heart disease (6 sources) Other pulmonary embolism without acute cor pulmonale; Translations: [H/O: pulmonary embolus] Onset: 3 Episodic Residual codes; unclassified (2 sources) Obstructive sleep apnea (adult) (pediatric); Translations: [Obstructive sleep apnea (adult) (pediatric)] Onset: 4 Chronic Residual codes; unclassified (3 sources) Other specified postprocedural states; Translations: [OTH SPECIFIED POSTPROCEDURAL STATES] Onset: 3 Episodic Screening and history of mental health and substance abuse codes (5 sources) Ex-smoker; Translations: [Personal history of nicotine dependence] Onset: 3 08-23-2019 Episodic Syncope (4 sources) Syncope and collapse; Translations: [SYNCOPE AND COLLAPSE] Onset: 3 Episodic Unclassified (4 sources) CONTACT W/AND (SUSP) EXPOS COVID-19; Translations: [CONTACT W/AND (SUSP) EXPOS COVID-19] Onset: 3 Unclassified (3 sources) Patient encounter status 04-14-2023 Unclassified (1 source) Other supraventricular tachycardia; Translations: [Other supraventricular tachycardia] Onset: 3 Unclassified (1 source) Other ventricular tachycardia; Translations: [Other ventricular tachycardia] Onset: 3 Past or Other Problems Problem Classification Problem Date Documented Date Episodic/Chronic Cardiac dysrhythmias (9 sources) Tachycardia, unspecified; Translations: [Palpitations] Onset: 08-18-2022 Episodic Other lower respiratory disease (2 sources) Snoring; Translations: [Snoring] Onset: 04-23-2023 Episodic Unclassified (1 source) CONTACT W/AND (SUSP) EXPOS COVID-19; Translations: [CONTACT W/AND (SUSP) EXPOS COVID-19] Onset: 09-04-2022 Unclassified (1 source) Other supraventricular tachycardia; Translations: [Other supraventricular tachycardia] Onset: 11-02-2023 Unclassified (1 source) Other ventricular tachycardia; Translations: [Other ventricular tachycardia] Onset: 11-02-2023 Results Test Name Value Interpretation Reference Range Facility 36on 11-04-2023 36 Please let him know I reviewed his LOOP monitor data with Dr. Verma. The device is oversensing his heart rate leading it to double count the beats even though it is normal. Nothing we need to do at this time. Continue current medications and follow-up in 3-4 months. Thanks! [facility] Telephoneon 11-04-2023 Telephone [id number] Horace Reynamichael Angeles 1975 M Date Provider Department Center 11/04/[address] No family history on file [facility] Office Visiton 11-02-2023 Follow-up visit [id number] AxelHoracemichael Angeles 1975 M Date Provider Department Center 11/02/2023 JUSTUS [facility] No family history on file Level of Service:22882 MO OFFICE/OUTPATIENT ESTABLISHED MOD MDM 30 MIN Reason for Visit and Comments: AVNRT [Other] Congestive Heart Failure [127] Hypertension [659052] [facility] 36on 08-23-2023 36 LINDA Villalba MA; Carrol Severino MA What have his bp trends showed? His SOB on exertion may just be HFpEF symptoms and we may need to consider increase in entresto or adding aldactone......just need to know BP trends to see if he can tolerate dose increase Spoke with patient again to check on BP's AFTER he's taking medications, and he said it's been ok. 128/81 HR 83 121/82 HR 79 134/88 HR 73 140/78 HR 65 144/81 HR 70 158/83 HR 72 BP's are improving and he states his SOB isn't bad . FYI [facility] 08-18-2023 29 Addended by: CARROL SEVERINO on: 08/18/2023 08:58 AM Modules accepted: Orders [facility] 08-18-2023 36 Per Marie regarding recent echo: Echo is stable with no concerns, normal LV function Is he still feeling SOB If he is can get a BNP to see if he needs diuresis 08/18/2023- patient informed. He agrees to BNP. Lab order faxed to [facility]. He told me when his checks his BP after medications, his BP is good . When he checks BP in between medication doses, diastolic is running in the high 80's-low 90's. I asked him to continue to only check BP 1-2 hours after meds. [facility] 08-02-[address] Hull's office mad e aware on 07/30/2023 and order for echo was then faxed to [facility]. [facility] 07-30-2023 36 Nothing recent on loop, had svt 07/08 but that was it. I went up on entresto recently for his BP. We can always get an echo to assure not heart related [facility] 36 Patient's stepdaughter (who works for Dr. Hull) called to make you aware patient is c/o increased SOB and elevated BP's lately. You saw him last week. Did anything show on his loop? Or does he need an ECG? She said he didn't mention palpitations or LE edema. Please advise. Thanks. [facility] Telephoneon 07-30-2023 Telephone [id number] Sujata Reyna 1975 M Date Provider Department Center 07/30/2023 928-CARROL SEVERINO [facility]ANDRINA [place] No family history on file Normal [facility] Office Visiton 07-20-2023 Follow-up visit [id number] Sujata Reyna 1975 M Date Provider Department Center 07/20/2023 1596-MAREI MILLER [facility] No family history on file Level of Service:88217 MO OFFICE/OUTPATIENT ESTABLISHED MOD MDM 30 MIN Normal [facility] HPon 06-14-2023 [facility] Electrophysiology Consult Note [facility] Clinic Reason for visit: svt, nsvt, s/p [...] monitor placed due to being admitted at [facility] for chest discomfort and acute PE. [...] for VT/SVTs --------- Previous 08/[address] verma HPI: Sujata Reyna is a 47 y.o. [...] was not done. Since his discharge from [facility], he was admitted to [facility] for chest pain. He was found to have an acute PE and was started on Eliquis. BLE doppler showed small nonocclusive right femoral vein thrombus. He also noted that he had also traveled down to [place] via car the few days prior to episode. Since his admission at [facility] last week, he has been feeling better. [...] malaise/fatigue and weight gain. Cardiovascular: Positive for palpitations/lighthea dedness. Negative for claudication, dyspnea on exertion, irregular [...] (08/28/2022) O (more content not included)... Normal [facility] NURSNOTEon 06-14-2023 NURSNOTE RN educated pt on d/ c instructions. RN encouraged pt to voice any questions or concerns. Pt verbalizes no questions or concerns at this time. Normal [facility] Orders Onlyon 06-07-2023 Orders Only [id number] Sujata Reyna 1975 M Date Provider Department Center 06/07/2023 BELINDA ALVAREZ [facility] No family history on file [facility] General Surgery Office/Clini c Noteon 05-29-2023 General [...] vaccine, live, trivalent 04/03/2019 Recorded Normal Madrigal [facility] Comment on above: Result Comment: Elec tronically Signed By: KEMAR MOLINA, Eduardo Galloway\Date and Time Signed: 05/29/23 10:25 EST Ambulatory Visit Summaryon 07-26-2022 Ambulatory Visit Summary SUJATA REYNA :1975 Visit Date:05/26/2023 Ambulatory Visit Instructions Your Care Team Attending Physician - KEMAR MOLINA, Eduardo [place] Primary Care Physician - Josh Hull MD This Is Your Medications List aspirin [...] Benton Zurita Where: [facility] Postoperative Documentson Postoperative Documents [id number] .00TIFF [facility] Reminderson 05-26-2023 Reminders - From: Leanne Iyer LPN To: GSN - Clinical; Sent: 05/26/2023 16:50:18 EST Show up: 04/13/2033 07:00:00 EDT Subject: colonoscopy recall Due Date/Time: 05/14/2033 07:00:00 EST Reminder/Recall Patient due for screening colonoscopy 05/14/2033. [facility] IntraOperative Documentson 1 07-19-2022 IntraOperative Documents [id number]# 1.00TIFF [facility] Consenton 05-17-2023 Consent [id number]#1 .00TIFF [facility] Discharge Instructionson Discharge Instructions [id number] .00TIFF Normal Rohan [facility] Main OR Intraoperative Recor don 05-17-2023 Main OR Intraoperative Record IntraOp Document Type FT Summary Primary Physician: Eduardo REINOSO MD Finalized Date/Time: 05/17/23 12:28:54 Pt. Name: SUJATA REYNA /Sex: 1975 Male Med Rec #: [id number] Physician: Eduardo REINOSO MD Financial #: [id number] Pt. Type: O Room/Bed: / Admit/Disch: 05/14/23 [...] Entry 2 Entry 3 Case Attendee Deppen LAND SURVEYOR MANAGER, Eunice Jones RN, Mel Duncan Role Performed LAND SURVEYOR MANAGER Field Geologist - Primary Scrub - Primary Time In 05/14/23 07:55:00 05/14/23 07:55:00 05/14/23 07:55:00 Time Out 05/14/23 08:55:00 05/14/23 08:55:00 05/14/23 08:55:00 Procedure COLONOSCOPY(Right, COLONOSCOPY(Right, COLONOSCOPY(Right, Left, .), CYST LESION Left, .), CYST LESION Left, .), CYST LESION REMOVAL(.) REMOVAL(.) REMOVAL(.) Comments Dr. Madrid is supervising Last Modified By: Robert MCKEON, Evelin Joens RN, Evelin N Evelin Jones RN 05/14/23 08:55:35 05/14/23 08:56:01 05/14/23 08:56:01 [...] Primary Surgeon KEMAR MOLINA, Eduardo REINOSO MD, Eduadro Maza 05/14/23 08:00:00 05/14/23 08:00:00 Stop 05/14/23 [...] Post-Care Text: (more content not included)... Normal [facility] Operative Reporton 3 Operative Report SURGERY [...] sent to Recovery Area in good condition. Barbara Ag FACS Dictated: 05/14/2023 [id number] Transcribed: 05/14/2023 cc:Josh Hull M.D. [facility] Comment on above: Result Comment: Elec tronically Signed By: KEMAR MOLINA, Eduardo Zurita\.mikey\Date and Time Signed: 05/16/23 20:29 EST Progress Note-Physicianon Progress Note-Physician Patient: SUJATA REYNA [facility]: [id number] Age: 47 years Sex: Male : 1975 [...] as documented in history of present illness. Ear/Nose/Mouth/Throat : Negative except as documented in history of [...] list: All Problems Prostatitis / SNOMED CT 70944517 / Confirmed Screening for malignant neoplasm of colon / SNOMED CT 342786614 / Confirmed Obesity / SNOMED CT 4168529839 / Confirmed Neoplasm of uncertain behavior of skin of thigh / SNOMED CT 426135391 / Confirmed Lipoma of left shoulder / SNOMED CT 478910549 / Confirmed LBBB (left bundle branch block) / SNOMED CT 067899371 / Confirmed Impotence / SNOMED CT 4166745736 / Confirmed Hypertension / SNOMED CT 6362332686 / Confirmed History of pulmonary embolism / SNOMED CT 274781400 / Confirmed Glycosuria / SNOMED CT 06268533 / Confirmed Former smoker / SNOMED CT 91337765 / Confirmed Chronic congestive heart failure / SNOMED CT 641126710 / Confirmed Cardiomyopathy / SNOMED CT 646715388 / Confirmed BMI 33.0-33.9,adult / SNOMED CT 451936697 / Confirmed BPH with urinary obstruction / SNOMED CT 2935788128 / Confirmed Atrial fibrillation / SNOMED CT 05941439 / Confirmed Anxiety / SNOMED CT 66979580 / Confirmed Canceled: Elevated PSA / SNOMED CT 2820245253 Canceled: Pyuria / SNOMED CT 5441313 Canceled: Hesitancy / SNOMED CT 270889839 Canceled: 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 Repair of right inguinal hernia ([id number]). Social History Social & Psychosocial Habits Alcohol [...] adequate air exchange. Cardiovascular: Regular rhythm. Plan [place] [employer] Anesthesiologists (ASA) physical status classification: Class II. Anesthetic Preoperative Plan: Anesthesia General. [facility] Comment on above: Result Comment: Elec tronically [...] meets criteria ( To home ). Normal [facility] Comment on above: Result Comment: Elec [...] by Eduardo REINOSO MD. Referred by Josh Hull MD. Current history and physical Documented on [...] place. Impression and Plan Diagnosis: Colon, diverticulosis ([id number] K57.30, Working, Medical). Course: Progressing as expected. Recommendations: Repeat colonoscopy:: In 5 years. Follow-up:: Await biopsy results in 3-5 days. Diet:: Regular diet. Medication resumption:: Continue current medications. Return to activities:: After 24 hours. Education and Follow-up: Counseled: Family. [facility] Comment on above: Other Comment: Angelita glasgow Attachment - attachment storage system not supported [id number] Can be viewed in source system Missing Attachment - attachment storage system not supported [id number] Can be viewed in source system Missing Attachment - attachment storage system not supported [id number] Can be viewed in source system Missing Attachment - attachment storage system not supported [id number] Can be viewed in source system Consent for Treatmenton 04-28 Consent for Treatment [id number] .00TIFF [facility] Discharge Instructionson Discharge Instructions AXELSUJATA BERNAL Michael :1975 Visit Date:05/14/2023 Inpatient Discharge Instructions Your [...] instructed Remove Dressing On 1 Pharmacy Information [facility] Discharge Instructions Discharge Instructions Previously Scheduled Follow-Up Appointments Wednesday 8:00 AM EST With: SIDDHARTHA MOLINA, Benton Zurita Where: [facility] Comment on above: Result Comment: Elec tronically Signed By: Andrea MCKEON, Roseanna\.mikey\Date and Time Signed: 05/14/23 09:03 EST Inpatient Patient Summaryon 05-14-2023 Inpatient Patient Summary [place] [id number] [facility] Clinical Discharge Instructions PERSON INFORMATION Name: SUJATA REYNA [facility]#:[id number] PHYSICIANS Admitting Physician: Eduardo REINOSO MD Attending Physician: Eduardo REINOSO MD PCP: Mikala MOLINA, Josh Discharge Diagnosis: Encounter for colorectal cancer screening; Encounter for screening for malignant neoplasm of rectum; Lipoma of back; Neoplasm of uncertain behavior of skin of thigh Comment: PATIENT EDUCATION INFORMATION Instructions: Medication Leaflets: Follow up: With: Address: When: Eduardo KEMAR [address], [address], [facility] [address] [place] [id number] Business (1) Within 7 to 10 days Type Location Start Finish State URO Office Visit [facility] Arn[place] 09/03/2023 8:00 AM 09/03/2023 8:15 AM Confirmed [...] Mouth every day. Refills: 3. Comment: Normal [facility] Main OR PACU I Recordon 04-28 Main OR PACU I Record PACU Phase I Docum ent Type FT Summary Primary Physician: Eduardo REINOSO MD Finalized Date/Time: 05/14/23 09:48:44 Pt. Name: SUJATA REYNA/Sex: 1975 Male Med Rec #: [id number] Physician: Eduardo REINOSO MD Financial #: [id number] Pt. Type: O Room/Bed: / Admit/Disch: 05/14/23 [...] 09:25 Roseanna Mendez RN 05/14/23 09:48 Normal [facility] Main OR Preoperative Recordo n 05-14-2023 Main OR Preoperative Record Holding Area Document Type FT Summary Primary Physician: Eduardo REINOSO MD Finalized Date/Time: 05/14/23 06:58:55 Pt. Name: SUJATA REYNA /Sex: 1975 Male Med Rec #: [id number] Physician: Eduardo REINOSO MD Financial #: [id number] Pt. Type: O Room/Bed: / Admit/Disch: 05/14/23 [...] By: Sophia Membreno RN 05/14/23 06:58 Normal [facility] Monitor Recordon 05-14-2023 Monitor Record [id number] 1.00TIFF Normal [facility] Outpatient Surgery Discharge Instructionon 05-14-2023 Outpatient Surgery Discharge Instruction [place] [id number] Patient Discharge Instructions PERSON INFORMATION Name: SUJATA REYNA Date of : 1975 Current Date: 05/14/2023 08:58:25 PHYSICIANS Admitting Physician: KEMAR MOLINA, Eduardo Zurita Discharge Diagnosis: Encounter for colorectal cancer screening; [...] EMERGENCY ROOM OR CALL 911 I, SUJATA REYNA Michael, have received the attached patient education materials/instruction s and have verbalized understanding: May we do a follow up call? Yes No I was present when discharge instructions were given Patient Signature Date Clinican/Nurse Signature Date Follow up: With: Address: When: Eduardo [address], [address], [facility] [address] [place] [phone] Business (1) Within 7 to 10 days Type Location Start Finish State U[facility] Office Visit [facility] TAMMY Ambrose 09/03/2023 8:00 AM 09/03/2023 8:15 AM [facility] You may receive a survey from [employer] asking you to rate your care experience. Your feedback is important and will help us understand what we do well and how we can improve the quality of care we provide to you, your loved ones and our community. It?s an honor to serve you. Thank you for choosing [facility] HERE ARE THE MEDICATION CHANGES THAT OCCURRED [...] PATIENT EDUCATION INFORMATION Instructions: Medication Leaflets: Normal [facility] Patient Education - Texton 1 07-14-2022 [...] unsweetened, w/added ascorbic acid 1 cup 0.5 [place] 1 cup 0.7 Vegetables Cooked Green beans 1 cup 4.0 Carrots 1/2 cup sliced 2.3 Peas 1 cup 8.8 Potato (baked, with skin) 1 medium potato 3.8 Raw [place] (with peel) 1 cucumber 1.5 Lettuce 1 [...] 8.7 Peanuts 1/2 cup 7.9 [facility] SEEK IMMEDIATE MEDICAL CARE IF: You develop [...] of Agriculture (USDA) National Nutrient Database at: http://www.nal.usda.g ov/fnic/foodcomp/sear ch/ Created using data from the USDA National Nutrient Database for Standard Reference. Available at http://www.nal.usda.g ov/fnic/foodcomp/sear ch/. Information adapted from: ExitCare? Patient Information ?2009 [employer]. UpToDate 2012 http://www.todate.c om/contents/diverticu voo-amghmau-edtoyl- e-basics Normal [facility] Orders Onlyon 05-11-2023 Orders Only [id number] Sujata Reyna 1975 M Date Provider Department Center 05/11/2023 Benjamin-MARIE MILLER [facility]. No family history on file Normal [facility] Insurance Correspondenceon 1 07-06-2022 Insurance Correspondence [id number] 1.00TIFF [facility] Telemedicineon 05-04-2023 Telemedicine [id number] Sujata Reyna 1975 M Date Provider Department [place] 05/04/2023 241-RISHABH VERMA ALEJANDRINA [facility] No family history on file Level of Service:96158 MO PHYS/QHP TELEPHONE EVALUATION 11-20 MIN [facility] Office Visiton 04-23-2023 Follow-up visit [id number] Sujata Reyna Michael 1975 M Date Provider Department [place] 04/23/2023 Benjamin-MARIE MILLER [facility] No family history on file Level of Service:91552 MO OFFICE/OUTPATIENT ESTABLISHED MOD MDM 30-39 MIN [facility] Consent for Procedure/Surger yon 04-15-2023 Consent for Procedure/Surgery [id number]#1 .00TIFF [facility] Ambulatory Visit Summaryon 1 Ambulatory Visit Summary SUJATA REYNA :1975 Visit Date:04/14/2023 Ambulatory Visit Instructions Your Care Team Attending Physician - KEMAR MOLINA, Eduardo Zurita Primary Care Physician - Mikala MOLINA, Josh Referring Physician - Josh Hull MD This Is Your Medications List Contact [...] Wednesday 9:00 AM EST With: Where: [facility] Surgical Services Wednesday 8:00 AM EST With: Benton CARL MD Where: [facility] Normal [facility] Office Visiton 03-23-2023 Follow-up visit [id number] Sujata Reyna 1975 M Date Provider Department Center 03/23/2023 RISHABH DIAMOND [facility] No family history on file Level of Service:26354 MO OFFICE/OUTPATIENT ESTABLISHED MOD MDM 30-39 MIN Normal [facility] Physician Referralon 023 Physician Referral [id number]. [id number] Normal [facility] Office Visiton 11-13-2022 Follow-up visit [id number] Sujata Reyna 1975 M Date Provider Department Center 11/13/2022 MirandaPAUL MARIE [facility] No family history on file Level of Service:91404 MO OFFICE/OUTPATIENT ESTABLISHED MOD MDM 30-39 MIN Normal [facility] MRI ABDOMEN WO W CONon 09-28 MRI [...] TRIPP [place]PO Date: 2022-09-28 08:56 Normal [facility] XR FOREIGN BODY EYEon 2022 XR FOREIGN BODY EYE EXAMINATION: XR FOREIGN BODY EYE HISTORY: Foreign body in eye COMPARISON: No relevant comparison available. FINDINGS: ORBITS: Negative for a metallic foreign body. OTHER: Negative. IMPRESSION: No metallic foreign body in the orbits Electronically authenticated by: TERESSA MCCONNELL Date: 2022-09-25 07:59 Normal [facility] CBC AUTO DIFFon 09-12-2022 BASO # 0.0 103/ul Normal 0.0-0.1 [facility] Comment on above: Performed By: #### H STROPN, TSH, BNP, BMP #### [facility] [address] [place] [address] Dr. Ivan Seo Basophils/100 WBC (Bld) 0.3 % Normal 0.2-2.0 [facility] Comment on above: Performed By: #### H STROPN, TSH, BNP, BMP #### [facility] [address] [place] [address] Dr. Ivan Seo EO # 0.0 103/ul Normal 0.0-0.7 [facility] Comment on above: Performed By: #### H STROPN, TSH, BNP, BMP #### [facility] [address] [place] [address] Dr. Ivan Seo Eosinophils/100 WBC (Bld) 0.3 % Critically low 0.9-7.0 [facility] Comment on above: Performed By: #### H STROPN, TSH, BNP, BMP #### [facility] [address] [address] [address] Ivan Seo Erythrocyte distribution width (RBC) [Ratio] 12.7 % Normal 11.0-15.0 [facility] Comment on above: Performed By: #### H STROPN, TSH, BNP, BMP #### [facility] [address] [place] [address] Dr. Ivan Seo Hematocrit (Bld) [Volume fraction] 32.9 % Critically low 42.0-54.0 [facility] Comment on above: Performed By: #### H STROPN, TSH, BNP, BMP #### [facility] [address] [address] [address] Ivan Seo Hemoglobin (Bld) [Mass/Vol] 11.5 g/dL Critically low 14.0-18.0 [facility] Comment on above: Performed By: #### H STROPN, TSH, BNP, BMP #### [facility] [address] [place] [address] Dr. Ivan Seo IG # 0.13 10e3/ul Critically high 0.00-0.03 [facility] Comment on above: Performed By: #### H STROPN, TSH, BNP, BMP #### [facility] [address] [place] [address] Dr. Ivan Seo IG % 1.0 % Critically high 0.0-0.5 [facility] Comment on above: Performed By: #### H STROPN, TSH, BNP, BMP #### [facility] [address] [place] [address] Dr. Ivan Seo LYMPH # 2.1 103/ul Normal 1.2-3.8 [facility] Comment on above: Performed By: #### H STROPN, TSH, BNP, BMP #### [facility] [address] [place] [address] Dr. Ivan Seo Lymphocytes/100 WBC (Bld) 15.6 % Critically low 20.5-60.0 [facility] Comment on above: Performed By: #### H STROPN, TSH, BNP, BMP #### [facility] [address] [place] [address] Dr. Ivan Seo MANUAL DIFF REQ NO Normal [facility] Comment on above: Performed By: #### H STROPN, TSH, BNP, BMP #### [facility] [address] [place] [address] Dr. Ivan Seo MCH (RBC) [Entitic mass] 31.3 pg Normal 25.9-34.0 [facility] Comment on above: Performed By: #### H STROPN, TSH, BNP, BMP #### [facility] [address] [place] [address] Dr. Ivan Seo MCHC (RBC) [Mass/Vol] 35.0 g/dL Normal 29.9-35.2 [facility] Comment on above: Performed By: #### H STROPN, TSH, BNP, BMP #### [facility] [address] [place] [address] Dr. Ivan Seo MCV (RBC) [Entitic vol] 89.4 fL Normal 80.0-94.0 [facility] Comment on above: Performed By: #### H STROPN, TSH, BNP, BMP #### [facility] [address] [place] [address] Dr. Ivan Seo MONO # 1.2 103/ul Critically high 0.3-0.8 [facility] Comment on above: Performed By: #### H STROPN, TSH, BNP, BMP #### [facility] [address] [place] [address] Dr. Ivan Seo Monocytes/100 WBC (Bld) 9.1 % Normal 1.7-12.0 [facility] Comment on above: Performed By: #### H STROPN, TSH, BNP, BMP #### [facility] [address] [place] [address] Dr. Ivan Seo NEUT # 9.9 103/ul Critically high 1.4-6.5 [facility] Comment on above: Performed By: #### H STROPN, TSH, BNP, BMP #### [facility] [address] [place] [address] Dr. Ivan Seo Neutrophils/100 WBC (Bld) 73.7 % Normal 43.0-75.0 [facility] Comment on above: Performed By: #### H STROPN, TSH, BNP, BMP #### [facility] [address] [place] [address] Dr. Ivan Seo Platelet mean volume (Bld) [Entitic vol] 8.9 fL Critically low 9.5-13.5 [facility] Comment on above: Performed By: #### H STROPN, TSH, BNP, BMP #### [facility] [address] [address] [address] Ivan Seo PLT 264 103/ul Normal 150-450 [facility] Comment on above: Performed By: #### H STROPN, TSH, BNP, BMP #### [facility] [address] [address] [address] Ivan Seo RBC 3.68 106/ul Critically low 4.70-6.10 [facility] Comment on above: Performed By: #### H STROPN, TSH, BNP, BMP #### [facility] [address] [address] [address] Ivan Seo WBC 13.4 103/ul Critically high 4.0-11.0 [facility] Comment on above: Performed By: #### H STROPN, TSH, BNP, BMP #### [facility] [address] [address] [address] Ivan Seo PROF 14(COMP METB)on 023 Albumin [Mass/Vol] 3.1 g/dL Critically low 3.4-5.0 [facility] Comment on above: Performed By: #### H STROPN, TSH, BNP, BMP #### [facility] [address] [address] [address] Ivan Seo Albumin/Globulin [Mass ratio] 0.8 {ratio} Normal [facility] Comment on above: Performed By: #### H STROPN, TSH, BNP, BMP #### [facility] [address] [address] [address] Ivan Seo ALP [Catalytic activity/Vol] 81 U/L Normal 46-116 [facility] Comment on above: Performed By: #### H STROPN, TSH, BNP, BMP #### [facility] [address] [address] [address] Ivan Seo ALT [Catalytic activity/Vol] 43 U/L Normal 16-63 [facility] Comment on above: Performed By: #### H STROPN, TSH, BNP, BMP #### [facility] [address] [address] [address] Ivan Seo Anion gap [Moles/Vol] 11.7 mmol/L Normal [facility] Comment on above: Performed By: #### H STROPN, TSH, BNP, BMP #### [facility] [address] [address] [address] Ivan Seo AST [Catalytic activity/Vol] 18 U/L Normal 15-37 [facility] Comment on above: Performed By: #### H STROPN, TSH, BNP, BMP #### [facility] [address] [address] [address] Ivan Seo Bilirubin [Mass/Vol] 0.5 mg/dL Normal 0.2-1.0 [facility] Comment on above: Performed By: #### H STROPN, TSH, BNP, BMP #### [facility] [address] [place] [address] Dr. Ivan Seo Calcium [Mass/Vol] 8.9 mg/dL Normal 8.5-10.1 [facility] Comment on above: Performed By: #### H STROPN, TSH, BNP, BMP #### [facility] [address] [place] [address] Dr. Ivan Seo Chloride [Moles/Vol] 106 mmol/L Normal 98-107 [facility] Comment on above: Performed By: #### H STROPN, TSH, BNP, BMP #### [facility] [address] [place] [address] Dr. Ivan Seo CO2 [Moles/Vol] 27.7 mmol/L Normal 21.0-32.0 [facility] Comment on above: Performed By: #### H STROPN, TSH, BNP, BMP #### [facility] [address] [place] [address] Dr. Ivan Seo Creatinine [Mass/Vol] 0.75 mg/dL Normal 0.70-1.30 [facility] Comment on above: Performed By: #### H STROPN, TSH, BNP, BMP #### [facility] [address] [place] [address] Dr. Ivan Seo EGFR-AF CAMEROONIAN >60 Normal >=60 [facility] Comment on above: Performed By: #### H STROPN, TSH, BNP, BMP #### [facility] [address] [address] [address] Ivan Seo EGFR-NON AF CAMEROONIAN >60 Normal >=60 [facility] Comment on above: Performed By: #### H STROPN, TSH, BNP, BMP #### [facility] [address] [address] [address] Ivan Seo Globulin (S) [Mass/Vol] 3.8 g/dL Normal [facility] Comment on above: Performed By: #### H STROPN, TSH, BNP, BMP #### [facility] [address] [address] [address] Ivan Seo Glucose [Mass/Vol] 100 mg/dL Normal 74-106 [facility] Comment on above: Performed By: #### H STROPN, TSH, BNP, BMP #### [facility] [address] [place] [address] Dr. Ivan Seo Potassium [Moles/Vol] 3.4 mmol/L Critically low 3.5-5.1 [facility] Comment on above: Performed By: #### H STROPN, TSH, BNP, BMP #### [facility] [address] [address] [address] Ivan Seo Protein [Mass/Vol] 6.9 g/dL Normal 6.4-8.2 [facility] Comment on above: Performed By: #### H STROPN, TSH, BNP, BMP #### [facility] [address] [address] [address] Ivan Seo Sodium [Moles/Vol] 142 mmol/L Normal 136-145 [facility] Comment on above: Performed By: #### H STROPN, TSH, BNP, BMP #### [facility] [address] [place] [address] Dr. Ivan Seo Urea nitrogen [Mass/Vol] 16.0 mg/dL Normal 7.0-18.0 [facility] Comment on above: Performed By: #### H STROPN, TSH, BNP, BMP #### [facility] [address] [place] [address] Dr. Ivan Seo Urea nitrogen/Creatinine [Mass ratio] 21.3 mg/mg Normal [facility] Comment on above: Performed By: #### H STROPN, TSH, BNP, BMP #### [facility] [address] [place] [address] Dr. Ivan Seo BNPon 09-11-2022 Natriuretic peptide B (Bld) [Mass/Vol] 194.0 pg/mL Normal <=450.0 [facility] Comment on above: Performed By: #### B CORD MAKER #### [facility] [address] [place] [address] Dr. Ivan Seo CBC AUTO DIFFon 09-11-2022 BASO # 0.0 103/ul Normal 0.0-0.1 [facility] Comment on above: Performed By: #### M G, BMP #### [facility] [address] [place] [address] Dr. Ivan Seo Basophils/100 WBC (Bld) 0.2 % Normal 0.2-2.0 [facility] Comment on above: Performed By: #### M G, BMP #### [facility] [address] [place] [address] Dr. Ivan Seo EO # 0.0 103/ul Normal 0.0-0.7 [facility] Comment on above: Performed By: #### M G, BMP #### [facility] [address] [place] [address] Dr. Ivan Seo Eosinophils/100 WBC (Bld) 0.0 % Critically low 0.9-7.0 [facility] Comment on above: Performed By: #### M G, BMP #### [facility] [address] [place] [address] Dr. Ivan Seo Erythrocyte distribution width (RBC) [Ratio] 12.7 % Normal 11.0-15.0 [facility] Comment on above: Performed By: #### M G, BMP #### [facility] [address] [place] [address] Dr. Ivan Seo Hematocrit (Bld) [Volume fraction] 34.5 % Critically low 42.0-54.0 [facility] Comment on above: Performed By: #### M G, BMP #### [facility] [address] [address] [address] Ivan Seo Hemoglobin (Bld) [Mass/Vol] 11.8 g/dL Critically low 14.0-18.0 [facility] Comment on above: Performed By: #### M G, BMP #### [facility] [address] [address] [address] Ivan Seo IG # 0.18 10e3/ul Critically high 0.00-0.03 [facility] Comment on above: Performed By: #### M G, BMP #### [facility] [address] [place] [address] Dr. Ivan Seo IG % 1.4 % Critically high 0.0-0.5 [facility] Comment on above: Performed By: #### M G, BMP #### [facility] [address] [place] [address] Dr. Ivan Seo LYMPH # 1.4 103/ul Normal 1.2-3.8 [facility] Comment on above: Performed By: #### M G, BMP #### [facility] [address] [place] [address] Dr. Ivan eSo Lymphocytes/100 WBC (Bld) 10.2 % Critically low 20.5-60.0 [facility] Comment on above: Performed By: #### M G, BMP #### [facility] [address] [place] [address] Dr. Ivan Seo MANUAL DIFF REQ NO Normal [facility] Comment on above: Performed By: #### M G, BMP #### [facility] [address] [place] [address] Dr. Ivan Seo MCH (RBC) [Entitic mass] 30.8 pg Normal 25.9-34.0 [facility] Comment on above: Performed By: #### M G, BMP #### [facility] [address] [place] [address] Dr. Ivan Seo MCHC (RBC) [Mass/Vol] 34.2 g/dL Normal 29.9-35.2 [facility] Comment on above: Performed By: #### M G, BMP #### [facility] [address] [place] [address] Dr. Ivan Seo MCV (RBC) [Entitic vol] 90.1 fL Normal 80.0-94.0 [facility] Comment on above: Performed By: #### M G, BMP #### [facility] [address] [place] [address] Dr. Ivan Seo MONO # 0.5 103/ul Normal 0.3-0.8 [facility] Comment on above: Performed By: #### M G, BMP #### [facility] [address] [place] [address] Dr. Ivan Seo Monocytes/100 WBC (Bld) 3.7 % Normal 1.7-12.0 [facility] Comment on above: Performed By: #### M G, BMP #### [facility] [address] [place] [address] Dr. Ivan Seo NEUT # 11.2 103/ul Critically high 1.4-6.5 [facility] Comment on above: Performed By: #### M G, BMP #### [facility] [address] [place] [address] Dr. Ivan Seo Neutrophils/100 WBC (Bld) 84.5 % Critically high 43.0-75.0 [facility] Comment on above: Performed By: #### M G, BMP #### [facility] [address] [place] [address] Dr. Ivan Seo Platelet mean volume (Bld) [Entitic vol] 9.2 fL Critically low 9.5-13.5 [facility] Comment on above: Performed By: #### M G, BMP #### [facility] [address] [place] [address] Dr. Ivan Seo PLT 276 103/ul Normal 150-450 [facility] Comment on above: Performed By: #### M G, BMP #### [facility] [address] [place] [address] Dr. Ivan Seo RBC 3.83 106/ul Critically low 4.70-6.10 [facility] Comment on above: Performed By: #### M G, BMP #### [facility] [address] [address] [address] Ivan Seo WBC 13.3 103/ul Critically high 4.0-11.0 [facility] Comment on above: Performed By: #### M G, BMP #### [facility] [address] [address] [address] Ivan Seo CULTURE SPUTUMon 09-11-2022 CULTURE SPUTUM Culture Observations : NORMAL RESPIRATORY SAUNDRA. Normal [facility] Comment on above: Performed By: #### H STROPN, TSH, BNP, BMP #### [facility] [address] [address] [address] Ivan Seo CULTURE URINEon 09-11-2022 CULTURE URINE Culture Observations : NO GROWTH. Normal [facility] Comment on above: Performed By: #### M G, BMP #### [facility] [address] [place] [address] Dr. Ivan Seo ECHOCARDIO M/2D COMPLETEon 0 09-11-2022 ECHOCARDIO M/2D COMPLETE Patient: SUJATA REYNA Exam Date: 09/11/2022 : 1975 Gender:M Ordering : DR JOSH HULL . Admission #: [id number] Family : Order #: [id number] CLICK HERE TO VIEW EXAM ECHOCARDIOGRAM REPORT [...] Colon M.D. on 09/11/2022 at 14:35 Normal [facility] POINT OF CARE GLUCOSEon 08-26 Glucose [Mass/Vol] 122 mg/dL Critically high 74-106 [facility] Comment on above: Performed By: #### H STROPN, TSH, BNP, BMP #### [facility] [address] [address] [address] Ivan Seo Glucose [Mass/Vol] 161 mg/dL Critically high -106 [facility] Comment on above: Performed By: #### M G, BMP #### [facility] [address] [address] [address] Ivan Seo Glucose [Mass/Vol] 123 mg/dL Critically high -106 [facility] Comment on above: Performed By: #### H STROPN, TSH, BNP, BMP #### [facility] [address] [address] [address] Ivan Seo PROF 14(COMP METB)on 023 Albumin [Mass/Vol] 3.5 g/dL Normal 3.4-5.0 [facility] Comment on above: Performed By: #### H STROPN, TSH, BNP, BMP #### [facility] [address] [address] [address] Ivan Seo Albumin/Globulin [Mass ratio] 0.9 {ratio} [facility] Comment on above: Performed By: #### H STROPN, TSH, BNP, BMP #### [facility] [address] [address] [address] Ivan Seo ALP [Catalytic activity/Vol] 106 U/L Normal 46-116 [facility] Comment on above: Performed By: #### H STROPN, TSH, BNP, BMP #### [facility] [address] [address] [address] Ivan Seo ALT [Catalytic activity/Vol] 37 U/L Normal 16-63 [facility] Comment on above: Performed By: #### H STROPN, TSH, BNP, BMP #### [facility] [address] [address] [address] Ivan Seo Anion gap [Moles/Vol] 11.5 mmol/L Normal [facility] Comment on above: Performed By: #### H STROPN, TSH, BNP, BMP #### [facility] [address] [address] [address] Ivan Seo AST [Catalytic activity/Vol] 15 U/L Normal 15-37 [facility] Comment on above: Performed By: #### H STROPN, TSH, BNP, BMP #### [facility] [address] [place] [address] Dr. Ivan Seo Bilirubin [Mass/Vol] 0.5 mg/dL Normal 0.2-1.0 [facility] Comment on above: Performed By: #### H STROPN, TSH, BNP, BMP #### [facility] [address] [address] [address] Ivan Seo Calcium [Mass/Vol] 9.1 mg/dL Normal 8.5-10.1 [facility] Comment on above: Performed By: #### H STROPN, TSH, BNP, BMP #### [facility] [address] [address] [address] Ivan Seo Chloride [Moles/Vol] 104 mmol/L Normal 98-107 [facility] Comment on above: Performed By: #### H STROPN, TSH, BNP, BMP #### [facility] [address] [address] [address] Ivan Seo CO2 [Moles/Vol] 27.1 mmol/L Normal 21.0-32.0 [facility] Comment on above: Performed By: #### H STROPN, TSH, BNP, BMP #### [facility] [address] [address] [address] Ivan Seo Creatinine [Mass/Vol] 0.78 mg/dL Normal 0.70-1.30 [facility] Comment on above: Performed By: #### H STROPN, TSH, BNP, BMP #### [facility] [address] [address] [address] Ivan Seo EGFR-AF CAMEROONIAN >60 Normal >=60 [facility] Comment on above: Performed By: #### H STROPN, TSH, BNP, BMP #### [facility] [address] [address] [address] Ivan Seo EGFR-NON AF CAMEROONIAN >60 Normal >=60 [facility] Comment on above: Performed By: #### H STROPN, TSH, BNP, BMP #### [facility] [address] [place] [address] Dr. Ivan Seo Globulin (S) [Mass/Vol] 4.0 g/dL Normal [facility] Comment on above: Performed By: #### H STROPN, TSH, BNP, BMP #### [facility] [address] [address] [address] Ivan Seo Glucose [Mass/Vol] 176 mg/dL Critically high 74-106 [facility] Comment on above: Performed By: #### H STROPN, TSH, BNP, BMP #### [facility] [address] [place] [address] Dr. Ivan Seo Potassium [Moles/Vol] 3.6 mmol/L Normal 3.5-5.1 [facility] Comment on above: Performed By: #### H STROPN, TSH, BNP, BMP #### [facility] [address] [place] [address] Dr. Ivan Seo Protein [Mass/Vol] 7.5 g/dL Normal 6.4-8.2 [facility] Comment on above: Performed By: #### H STROPN, TSH, BNP, BMP #### [facility] [address] [place] [address] Dr. Ivan Seo Sodium [Moles/Vol] 139 mmol/L Normal 136-145 [facility] Comment on above: Performed By: #### H STROPN, TSH, BNP, BMP #### [facility] [address] [address] [address] Ivan Seo Urea nitrogen [Mass/Vol] 11.0 mg/dL Normal 7.0-18.0 [facility] Comment on above: Performed By: #### H STROPN, TSH, BNP, BMP #### [facility] [address] [address] [address] Ivan Seo Urea nitrogen/Creatinine [Mass ratio] 14.1 mg/mg Normal [facility] Comment on above: Performed By: #### H STROPN, TSH, BNP, BMP #### [facility] [address] [address] [address] Ivan Seo PTT HEPARIN MONITORon 2022 aPTT Coag (Bld) [Time] 47.8 s Normal 39.5-54.2 [facility] Comment on above: Performed By: #### H STROPN, TSH, BNP, BMP #### [facility] [address] [address] [address] Ivan Seo SPUTUM GRAM STAINon 09-12-19 COMMENTS Normal [facility] Comment on above: Performed By: #### H STROPN, TSH, BNP, BMP #### [facility] [address] [address] [address] Ivan Seo DIPHTHEROIDS Normal [facility] Comment on above: Performed By: #### H STROPN, TSH, BNP, BMP #### [facility] [address] [address] [address] Ivan Seo EPITHELIALS <25 Normal [facility] Comment on above: Performed By: #### H STROPN, TSH, BNP, BMP #### [facility] [address] [address] [address] Ivan Seo FUNGAL ELEMENTS Normal [facility] Comment on above: Performed By: #### H STROPN, TSH, BNP, BMP #### [facility] [address] [address] [address] Ivan Seo GRAM NEG BACILLI Normal [facility] Comment on above: Performed By: #### H STROPN, TSH, BNP, BMP #### [facility] [address] [address] [address] Ivan Seo GRAM NEG DIPPLOCOCCI Normal [facility] Comment on above: Performed By: #### H STROPN, TSH, BNP, BMP #### [facility] [address] [address] [address] Ivan Seo GRAM POS BACILLI Normal [facility] Comment on above: Performed By: #### H STROPN, TSH, BNP, BMP #### [facility] [address] [address] [address] Ivan Seo GRAM POSITIVE COCCI MODERATE Normal [facility] Comment on above: Performed By: #### H STROPN, TSH, BNP, BMP #### [facility] [address] [address] [address] Ivan Seo WBC (Bld) [#/Vol] 10*3/uL Normal [facility] Comment on above: Performed By: #### H STROPN, TSH, BNP, BMP #### [facility] [address] [address] [address] Ivan Seo TROPONIN, HIGH SENSITIVITYon 09-11-2022 HSTROP 9.2 pg/mL Normal 4.0-76.1 [facility] Comment on above: Result Comment: CUT- OFF POINTS HAVE BEEN ESTABLISHED BASED ON THE FOURTH UNIVERSAL DEFINITIONS OF MYOCARDIAL INFARCTION. THE UPPER REFERENCE LIMIT (URL) OF TROPONIN, DEFINED THE 99TH PERCENTILE OF cTnI DISTRIBUTION IN A REFERENCE POPULATION, HAS BEEN CONFIRMED THE DECISION THRESHOLD FOR DE DIAGNOSIS. Performed By: #### H STROPN, TSH, BNP, BMP #### [facility] [address] [address] [address] Ivan Seo UA RANDOM W/MICROSCOPICon BACTERIA NONE SEEN Normal NONE SEEN [facility] Comment on above: Performed By: #### H STROPN, TSH, BNP, BMP #### [facility] [address] [address] [address] Ivan Seo Bilirubin Ql (U) Negative Normal NEGATIVE [facility] Comment on above: Performed By: #### H STROPN, TSH, BNP, BMP #### [facility] [address] [address] [address] Ivan Seo CAST NONE SEEN Normal NONE SEEN [facility] Comment on above: Performed By: #### H STROPN, TSH, BNP, BMP #### [facility] [address] [address] [address] Ivan Seo Clarity (U) CLEAR Normal CLEAR [facility] Comment on above: Performed By: #### H STROPN, TSH, BNP, BMP #### [facility] [address] [address] [address] Ivan Seo Color (U) LT. YELLOW Normal YELLOW [facility] Comment on above: Performed By: #### H STROPN, TSH, BNP, BMP #### [facility] [address] [address] [address] Ivan Seo Crystals LM Nom (Urine sed) NONE SEEN Normal NONE SEEN [facility] Comment on above: Performed By: #### H STROPN, TSH, BNP, BMP #### [facility] [address] [address] [address] Ivan Seo Epithelial cells LM Ql (Urine sed) NONE SEEN Normal NONE SEEN /RARE [facility] Comment on above: Performed By: #### H STROPN, TSH, BNP, BMP #### [facility] [address] [address] [address] Ivan Seo Glucose Ql (U) 1000 mg/dl Abnormal NEGATIVE [facility] Comment on above: Performed By: #### H STROPN, TSH, BNP, BMP #### [facility] [address] [address] [address] Ivan Seo Hemoglobin Ql (U) Negative Normal NEGATIVE [facility] Comment on above: Performed By: #### H STROPN, TSH, BNP, BMP #### [facility] [address] [place] [address] Dr. Ivan Seo Ketones Ql (U) Negative Normal NEGATIVE [facility] Comment on above: Performed By: #### H STROPN, TSH, BNP, BMP #### [facility] [address] [place] [address] Dr. Ivan Seo LEUKOCYTES Negative Normal NEGATIVE [facility] Comment on above: Performed By: #### H STROPN, TSH, BNP, BMP #### [facility] [address] [address] [address] Ivan Seo MUCOUS NONE SEEN Normal NONE SEEN [facility] Comment on above: Performed By: #### H STROPN, TSH, BNP, BMP #### [facility] [address] [address] [address] Ivan Seo Nitrite Ql (U) Negative Normal NEGATIVE [facility] Comment on above: Performed By: #### H STROPN, TSH, BNP, BMP #### [facility] [address] [address] [address] Ivan Seo pH (U) 6.0 [pH] Normal 5-9 [facility] Comment on above: Performed By: #### H STROPN, TSH, BNP, BMP #### [facility] [address] [address] [address] Ivan Seo RBC NONE SEEN Abnormal 0-2 [facility] Comment on above: Performed By: #### H STROPN, TSH, BNP, BMP #### [facility] [address] [address] [address] Ivan Seo SPEC GRAVITY 1.020 Normal 1.005-<=1.025 [facility] Comment on above: Performed By: #### H STROPN, TSH, BNP, BMP #### [facility] [address] [address] [address] Ivan Seo UA PROTEIN Negative Normal NEGATIVE/ TRACE [facility] Comment on above: Performed By: #### H STROPN, TSH, BNP, BMP #### [facility] [address] [address] [address] Ivan Seo Urobilinogen Qn (U) 0.2 {Teto'U}/dL Normal 0.2 - 1. 0 [facility] Comment on above: Performed By: #### H STROPN, TSH, BNP, BMP #### [facility] [address] [address] [address] Ivan Seo WBC NONE SEEN Normal NONE SEEN [facility] Comment on above: Performed By: #### H STROPN, TSH, BNP, BMP #### [facility] [address] [address] [address] Ivan Seo US JORDEN DOP LEG [...] NORI MCALLISTER Date: 2022-09-11 07:52 Normal [facility] BNPon 09-10-2022 Natriuretic peptide B (Bld) [Mass/Vol] 138.0 pg/mL Normal <=450.0 [facility] Comment on above: Performed By: #### H STROPN, TSH, BNP, BMP #### [facility] [address] [address] [address] Ivan Seo CBC W MANUAL DIFFon 09-11-19 23 ATYPICAL LYMPH # Normal [facility] Comment on above: Performed By: #### H STROPN, TSH, BNP, BMP #### [facility] [address] [address] [address] Ivan Seo ATYPICAL LYMPH % Normal [facility] Comment on above: Performed By: #### H STROPN, TSH, BNP, BMP #### [facility] [address] [address] [address] Ivan Seo BAND # 0.0 103/ul Normal 0.0-0.3 [facility] Comment on above: Performed By: #### H STROPN, TSH, BNP, BMP #### [facility] [address] [place] [address] Dr. Ivan Seo BAND % 0 % Normal 0-5 [facility] Comment on above: Performed By: #### H STROPN, TSH, BNP, BMP #### [facility] [address] [address] [address] Ivan Seo BASOM # 0.00 103/ul Normal 0.00-0.10 [facility] Comment on above: Performed By: #### H STROPN, TSH, BNP, BMP #### [facility] [address] [place] [address] Dr. Ivan Seo BASOM % 0.0 % Critically low 0.2-2.0 [facility] Comment on above: Performed By: #### H STROPN, TSH, BNP, BMP #### [facility] [address] [place] [address] Dr. Ivan Seo BLAST # Normal [facility] Comment on above: Performed By: #### H STROPN, TSH, BNP, BMP #### [facility] [address] [place] [address] Dr. Ivan Seo BLAST % Normal [facility] Comment on above: Performed By: #### H STROPN, TSH, BNP, BMP #### [facility] [address] [place] [address] Dr. Ivan Seo CORRECTED WBC Normal 4.0-11.0 [facility] Comment on above: Performed By: #### H STROPN, TSH, BNP, BMP #### [facility] [address] [place] [address] Dr. Ivan Seo EOS # 0.31 103/ul Normal 0.00-0.70 [facility] Comment on above: Performed By: #### H STROPN, TSH, BNP, BMP #### [facility] [address] [place] [address] Dr. Ivan Seo EOS% 2.0 % Normal 0.9-7.0 [facility] Comment on above: Performed By: #### H STROPN, TSH, BNP, BMP #### [facility] [address] [address] [address] Ivan Seo HCT 35.0 % Critically low 42.0-54.0 [facility] Comment on above: Performed By: #### H STROPN, TSH, BNP, BMP #### [facility] [address] [address] [address] Ivan Seo HGB 11.9 g/dl Critically low 14.0-18.0 [facility] Comment on above: Performed By: #### H STROPN, TSH, BNP, BMP #### [facility] [address] [address] [address] Ivan Seo LYMPHM # 0.92 103/ul Critically low 1.20-3.80 [facility] Comment on above: Performed By: #### H STROPN, TSH, BNP, BMP #### [facility] [address] [address] [address] Ivan Seo LYMPHM% 6.0 % Critically low 20.5-60.0 [facility] Comment on above: Performed By: #### H STROPN, TSH, BNP, BMP #### [facility] [address] [place] [address] Dr. Ivan Seo MCH 30.7 pg Normal 25.9-34.0 [facility] Comment on above: Performed By: #### H STROPN, TSH, BNP, BMP #### [facility] [address] [place] [address] Dr. Ivan Seo MCHC 34.0 g/dl Normal 29.9-35.2 [facility] Comment on above: Performed By: #### H STROPN, TSH, BNP, BMP #### [facility] [address] [place] [address] Dr. Ivan Seo MCV 90.2 fL Normal 80.0-94.0 [facility] Comment on above: Performed By: #### H STROPN, TSH, BNP, BMP #### [facility] [address] [place] [address] Dr. Ivan Seo METAMYELOCYTE # Normal [facility] Comment on above: Performed By: #### H STROPN, TSH, BNP, BMP #### [facility] [address] [address] [address] Ivan Seo METAMYELOCYTE % Normal [facility] Comment on above: Performed By: #### H STROPN, TSH, BNP, BMP #### [facility] [address] [address] [address] Ivan Seo MONOM# 1.38 103/ul Critically high 0.30-0.80 [facility] Comment on above: Performed By: #### H STROPN, TSH, BNP, BMP #### [facility] [address] [place] [address] Dr. Ivan Seo MONOM% 9.0 % Normal 1.7-12.0 [facility] Comment on above: Performed By: #### H STROPN, TSH, BNP, BMP #### [facility] [address] [place] [address] Dr. Ivan Seo MPV 9.2 fL Critically low 9.5-13.5 [facility] Comment on above: Performed By: #### H STROPN, TSH, BNP, BMP #### [facility] [address] [place] [address] Dr. Ivan Seo MYELOCYTE # Normal [facility] Comment on above: Performed By: #### H STROPN, TSH, BNP, BMP #### [facility] [address] [address] [address] Ivan Seo MYELOCYTE % Normal [facility] Comment on above: Performed By: #### H STROPN, TSH, BNP, BMP #### [facility] [address] [address] [address] Ivan Seo NRBC Normal [facility] Comment on above: Performed By: #### H STROPN, TSH, BNP, BMP #### [facility] [address] [address] [address] Ivan Seo PLT 275 103/ul Normal 150-450 [facility] Comment on above: Performed By: #### H STROPN, TSH, BNP, BMP #### [facility] [address] [address] [address] Ivan Seo RBC 3.88 106/ul Critically low 4.70-6.10 [facility] Comment on above: Performed By: #### H STROPN, TSH, BNP, BMP #### [facility] [address] [address] [address] Ivan Seo RDW 12.9 % Normal 11.0-15.0 [facility] Comment on above: Performed By: #### H STROPN, TSH, BNP, BMP #### [facility] [address] [address] [address] Ivan Seo SEG # 12.70 103/ul Critically high 1.40-6.50 [facility] Comment on above: Performed By: #### H STROPN, TSH, BNP, BMP #### [facility] [address] [address] [address] Ivan Seo SEG % 83.0 % Critically high 43.0-75.0 [facility] Comment on above: Performed By: #### H STROPN, TSH, BNP, BMP #### [facility] [address] [address] [address] Ivan Seo WBC 15.3 103/ul Critically high 4.0-11.0 [facility] Comment on above: Performed By: #### H STROPN, TSH, BNP, BMP #### [facility] [address] [address] [address] Ivan Seo CTA CHEST WO W CONon 09-10- 023 CTA CHEST WO W CON EXAMINATION: CTA CHEST WO W CON, 09/10/2022 6:46 PM EDT [...] 7:57 PM EDT. Electronically authenticated by: JEAN ARCHIBALD Date: 2022-09-10 20:03 Normal [facility] SARS-CoV-2 (COVID-19) RNA THONG+probe Ql (Unsp spec) Not detected Normal NOT DETECTED [facility] Comment on above: Result Comment: When [...] for this test is supported by the [place] of Health and Human Service's declaration that [...] #### H STROPN, TSH, BNP, BMP #### [facility] [address] [place] [address] Dr. Ivan Seo PROF 14(COMP METB)on 023 Albumin [Mass/Vol] 3.8 g/dL Normal 3.4-5.0 [facility] Comment on above: Performed By: #### H STROPN, TSH, BNP, BMP #### [facility] [address] [place] [address] Dr. Ivan Seo Albumin/Globulin [Mass ratio] 1.0 {ratio} Normal [facility] Comment on above: Performed By: #### H STROPN, TSH, BNP, BMP #### [facility] [address] [address] [address] Ivan Seo ALP [Catalytic activity/Vol] 110 U/L Normal 46-116 [facility] Comment on above: Performed By: #### H STROPN, TSH, BNP, BMP #### [facility] [address] [place] [address] Dr. Ivan Seo ALT [Catalytic activity/Vol] 42 U/L Normal 16-63 [facility] Comment on above: Performed By: #### H STROPN, TSH, BNP, BMP #### [facility] [address] [address] [address] Ivan Seo Anion gap [Moles/Vol] 12.9 mmol/L Normal [facility] Comment on above: Performed By: #### H STROPN, TSH, BNP, BMP #### [facility] [address] [address] [address] Ivan Seo AST [Catalytic activity/Vol] 15 U/L Normal 15-37 [facility] Comment on above: Performed By: #### H STROPN, TSH, BNP, BMP #### [facility] [address] [address] [address] Ivan Seo Bilirubin [Mass/Vol] 0.8 mg/dL Normal 0.2-1.0 [facility] Comment on above: Performed By: #### H STROPN, TSH, BNP, BMP #### [facility] [address] [address] [address] Ivan Seo Calcium [Mass/Vol] 9.2 mg/dL Normal 8.5-10.1 [facility] Comment on above: Performed By: #### H STROPN, TSH, BNP, BMP #### [facility] [address] [place] [address] Dr. Ivan Seo Chloride [Moles/Vol] 103 mmol/L Normal 98-107 [facility] Comment on above: Performed By: #### H STROPN, TSH, BNP, BMP #### [facility] [address] [place] [address] Dr. Ivan Seo CO2 [Moles/Vol] 26.6 mmol/L Normal 21.0-32.0 [facility] Comment on above: Performed By: #### H STROPN, TSH, BNP, BMP #### [facility] [address] [place] [address] Dr. Ivan Seo Creatinine [Mass/Vol] 0.84 mg/dL Normal 0.70-1.30 [facility] Comment on above: Performed By: #### H STROPN, TSH, BNP, BMP #### [facility] [address] [place] [address] Dr. Ivan Seo EGFR-AF CAMEROONIAN >60 Normal >=60 [facility] Comment on above: Performed By: #### H STROPN, TSH, BNP, BMP #### [facility] [address] [place] [address] Dr. Ivan Seo EGFR-NON AF CAMEROONIAN >60 Normal >=60 [facility] Comment on above: Performed By: #### H STROPN, TSH, BNP, BMP #### [facility] [address] [address] [address] Ivan Seo Globulin (S) [Mass/Vol] 3.9 g/dL Normal [facility] Comment on above: Performed By: #### H STROPN, TSH, BNP, BMP #### [facility] [address] [address] [address] Ivan Seo Glucose [Mass/Vol] 111 mg/dL Critically high 74-106 [facility] Comment on above: Performed By: #### H STROPN, TSH, BNP, BMP #### [facility] [address] [address] [address] Ivan Seo Potassium [Moles/Vol] 3.5 mmol/L Normal 3.5-5.1 [facility] Comment on above: Performed By: #### H STROPN, TSH, BNP, BMP #### [facility] [address] [place] [address] Dr. Ivan Seo Protein [Mass/Vol] 7.7 g/dL Normal 6.4-8.2 [facility] Comment on above: Performed By: #### H STROPN, TSH, BNP, BMP #### [facility] [address] [address] [address] Ivan Seo Sodium [Moles/Vol] 139 mmol/L Normal 136-145 [facility] Comment on above: Performed By: #### H STROPN, TSH, BNP, BMP #### [facility] [address] [place] [address] Dr. Ivan Seo Urea nitrogen [Mass/Vol] 11.0 mg/dL Normal 7.0-18.0 [facility] Comment on above: Performed By: #### H STROPN, TSH, BNP, BMP #### [facility] [address] [place] [address] Dr. Ivan Seo Urea nitrogen/Creatinine [Mass ratio] 13.1 mg/mg Normal [facility] Comment on above: Performed By: #### H STROPN, TSH, BNP, BMP #### [facility] [address] [place] [address] Dr. Ivan Seo PROTIMEon 09-10-2022 INR Coag (PPP) [Relative time] 1.08 {INR} Normal [facility] Comment on above: Performed By: #### H STROPN, TSH, BNP, BMP #### [facility] [address] [address] [address] Ivan Seo INR GUIDELINES SEE BELOW Normal [facility] Comment on above: Result Comment: ROGELIO RED INR: 2.0 - 3.0 CONDITIONS NOT LISTED BELOW 2.5 - 3.5 FOR PROSTHETIC HEART VALVE REPLACEMENT 2.5 - 3.5 RECURRENT THROMBOSIS Performed By: #### H STROPN, TSH, BNP, BMP #### [facility] [address] [address] [address] Ivan Seo PT Coag (PPP) [Time] 11.4 s Normal 9.0-11.6 [facility] Comment on above: Performed By: #### H STROPN, TSH, BNP, BMP #### [facility] [address] [place] [address] Dr. Ivan Seo PTTon 09-10-2022 aPTT Coag (Bld) [Time] 29.9 s Normal 22.3-36.2 [facility] Comment on above: Performed By: #### H STROPN, TSH, BNP, BMP #### [facility] [address] [place] [address] Dr. Ivan Seo TROPONIN, HIGH SENSITIVITYon 09-10-2022 HSTROP 10.9 pg/mL Normal 4.0-76.1 [facility] Comment on above: Result Comment: CUT- OFF POINTS HAVE BEEN ESTABLISHED BASED ON THE FOURTH UNIVERSAL DEFINITIONS OF MYOCARDIAL INFARCTION. THE UPPER REFERENCE LIMIT (URL) OF TROPONIN, DEFINED THE 99TH PERCENTILE OF cTnI DISTRIBUTION IN A REFERENCE POPULATION, HAS BEEN CONFIRMED THE DECISION THRESHOLD FOR DE DIAGNOSIS. Performed By: #### H STROPN, TSH, BNP, BMP #### [facility] [address] [place] [address] Dr. Ivan Seo Covid-19 PCR ([facility])on 08-26 SARS-CoV-2 (COVID-19) RNA THONG+probe Ql (Unsp spec) Not detected Normal NOT DETECTED [facility] Comment on above: Result Comment: When [...] for this test is supported by the [place] [employer] and Human Service's declaration that [...] #### H STROPN, TSH, BNP, BMP #### [facility] [address] [place] [address] Dr. Ivan Seo NM STRESS/REST MULTIon 08-27 NM STRESS/REST MULTI Patient: SUJATA REYNA Exam Date: 08/27/2022 : 1975 Gender:M Ordering : DR JOSH HULL . Admission #: [id number] Family : Order #: [id number] CLICK HERE TO VIEW EXAM RADIOLOGY REPORT [...] anteroseptal. Basal inferoseptal. Basal inferior. Mid-inferoseptal. Mid-inferior. [place]. SIZE: Large (5 or more segments). SEVERITY: [...] ventricular ejection of 49% Dictated by: Teressa Mcconnell MD on 08/27/2022 at 15:42 Approved by: Teressa Mcconnell MD on 08/27/2022 at 15:55 Normal [facility] CBC AUTO DIFFon 08-20-2022 BASO # 0.0 103/ul Normal 0.0-0.1 [facility] Comment on above: Performed By: #### M G, BMP #### [facility] [address] [place] [address] Dr. Ivan Seo Basophils/100 WBC (Bld) 0.5 % Normal 0.2-2.0 [facility] Comment on above: Performed By: #### M G, BMP #### [facility] [address] [place] [address] Dr. Ivan Seo EO # 0.2 103/ul Normal 0.0-0.7 [facility] Comment on above: Performed By: #### M G, BMP #### [facility] [address] [address] [address] Ivan Seo Eosinophils/100 WBC (Bld) 2.9 % Normal 0.9-7.0 [facility] Comment on above: Performed By: #### M G, BMP #### [facility] [address] [place] [address] Dr. Ivan Seo Erythrocyte distribution width (RBC) [Ratio] 13.0 % Normal 11.0-15.0 [facility] Comment on above: Performed By: #### M G, BMP #### [facility] [address] [place] [address] Dr. Ivan Seo Hematocrit (Bld) [Volume fraction] 41.4 % Critically low 42.0-54.0 [facility] Comment on above: Performed By: #### M G, BMP #### [facility] [address] [place] [address] Dr. Ivan Seo Hemoglobin (Bld) [Mass/Vol] 13.9 g/dL Critically low 14.0-18.0 [facility] Comment on above: Performed By: #### M G, BMP #### [facility] [address] [place] [address] Dr. Ivan Seo IG # 0.04 10e3/ul Critically high 0.00-0.03 [facility] Comment on above: Performed By: #### M G, BMP #### [facility] [address] [place] [address] Dr. Ivan Seo IG % 0.5 % Normal 0.0-0.5 [facility] Comment on above: Performed By: #### M G, BMP #### [facility] [address] [place] [address] Dr. Ivan Seo LYMPH # 2.2 103/ul Normal 1.2-3.8 [facility] Comment on above: Performed By: #### M G, BMP #### [facility] [address] [place] [address] Dr. Ivan Seo Lymphocytes/100 WBC (Bld) 29.2 % Normal 20.5-60.0 [facility] Comment on above: Performed By: #### M G, BMP #### [facility] [address] [place] [address] Dr. Ivan Seo MANUAL DIFF REQ NO Normal [facility] Comment on above: Performed By: #### M G, BMP #### [facility] [address] [place] [address] Dr. Ivan Seo MCH (RBC) [Entitic mass] 30.5 pg Normal 25.9-34.0 [facility] Comment on above: Performed By: #### M G, BMP #### [facility] [address] [place] [address] Dr. Ivan Seo MCHC (RBC) [Mass/Vol] 33.6 g/dL Normal 29.9-35.2 [facility] Comment on above: Performed By: #### M G, BMP #### [facility] [address] [place] [address] Dr. Ivan Seo MCV (RBC) [Entitic vol] 91.0 fL Normal 80.0-94.0 [facility] Comment on above: Performed By: #### M G, BMP #### [facility] [address] [place] [address] Dr. Ivan Seo MONO # 0.8 103/ul Normal 0.3-0.8 [facility] Comment on above: Performed By: #### M G, BMP #### [facility] [address] [place] [address] Dr. Ivan Seo Monocytes/100 WBC (Bld) 10.5 % Normal 1.7-12.0 [facility] Comment on above: Performed By: #### M G, BMP #### [facility] [address] [place] [address] Dr. Ivan Seo NEUT # 4.3 103/ul Normal 1.4-6.5 [facility] Comment on above: Performed By: #### M G, BMP #### [facility] [address] [place] [address] Dr. Ivan Seo Neutrophils/100 WBC (Bld) 56.4 % Normal 43.0-75.0 [facility] Comment on above: Performed By: #### M G, BMP #### [facility] [address] [place] [address] Dr. Ivan Seo Platelet mean volume (Bld) [Entitic vol] 9.3 fL Critically low 9.5-13.5 [facility] Comment on above: Performed By: #### M G, BMP #### [facility] [address] [place] [address] Dr. Ivan Seo PLT 264 103/ul Normal 150-450 [facility] Comment on above: Performed By: #### M G, BMP #### [facility] [address] [place] [address] Dr. Ivan Seo RBC 4.55 106/ul Critically low 4.70-6.10 [facility] Comment on above: Performed By: #### M G, BMP #### [facility] [address] [place] [address] Dr. Ivan Seo WBC 7.7 103/ul Normal 4.0-11.0 [facility] Comment on above: Performed By: #### M G, BMP #### [facility] [address] [place] [address] Dr. Ivan Seo MAGNESIUMon 08-20-2022 Magnesium [Mass/Vol] 2.0 mg/dL Normal 1.8-2.4 [facility] Comment on above: Performed By: #### M G, BMP #### [facility] [address] [place] [address] Dr. Ivan Seo PROF CHEM 8 (BAS METB)on Anion gap [Moles/Vol] 12.9 mmol/L Normal [facility] Comment on above: Performed By: #### M G, BMP #### [facility] [address] [place] [address] Dr. Ivan Soe Calcium [Mass/Vol] 9.0 mg/dL Normal 8.5-10.1 [facility] Comment on above: Performed By: #### Neelima G, BMP #### [facility] [address] [place] [address] Dr. Ivan Seo Chloride [Moles/Vol] 104 mmol/L Normal 98-107 [facility] Comment on above: Performed By: #### M G, BMP #### [facility] [address] [place] [address] Dr. Ivan Seo CO2 [Moles/Vol] 24.9 mmol/L Normal 21.0-32.0 [facility] Comment on above: Performed By: #### M G, BMP #### [facility] [address] [place] [address] Dr. Ivan Seo Creatinine [Mass/Vol] 0.82 mg/dL Normal 0.70-1.30 [facility] Comment on above: Performed By: #### M G, BMP #### [facility] [address] [place] [address] Dr. Ivan Seo EGFR-AF CAMEROONIAN >60 Normal >=60 [facility] Comment on above: Performed By: #### M G, BMP #### [facility] [address] [address] [address] Ivan Seo EGFR-NON AF CAMEROONIAN >60 Normal >=60 [facility] Comment on above: Performed By: #### M G, BMP #### [facility] [address] [address] [address] Ivan Seo Glucose [Mass/Vol] 94 mg/dL Normal 74-106 [facility] Comment on above: Performed By: #### M G, BMP #### [facility] [address] [place] [address] Dr. Ivan Seo Potassium [Moles/Vol] 3.8 mmol/L Normal 3.5-5.1 [facility] Comment on above: Performed By: #### M G, BMP #### [facility] [address] [place] [address] Dr. Ivan Seo Sodium [Moles/Vol] 138 mmol/L Normal 136-145 [facility] Comment on above: Performed By: #### M G, BMP #### [facility] [address] [place] [address] Dr. Ivan Seo Urea nitrogen [Mass/Vol] 11.0 mg/dL Normal 7.0-18.0 [facility] Comment on above: Performed By: #### M G, BMP #### [facility] [address] [place] [address] Dr. Ivan Seo Urea nitrogen/Creatinine [Mass ratio] 13.4 mg/mg Normal [facility] Comment on above: Performed By: #### M G, BMP #### [facility] [address] [place] [address] Dr. Ivan Seo TROPONIN, HIGH SENSITIVITYon 02-23-2023 HSTROP 8.3 pg/mL Normal 4.0-76.1 [facility] Comment on above: Result Comment: CUT- OFF POINTS HAVE BEEN ESTABLISHED BASED ON THE FOURTH UNIVERSAL DEFINITIONS OF MYOCARDIAL INFARCTION. THE UPPER REFERENCE LIMIT (URL) OF TROPONIN, DEFINED THE 99TH PERCENTILE OF cTnI DISTRIBUTION IN A REFERENCE POPULATION, HAS BEEN CONFIRMED THE DECISION THRESHOLD FOR DE DIAGNOSIS. Performed By: #### H STROPN, TSH, BNP, BMP #### [facility] [address] [place] [address] Dr. Ivan Seo CARDIAC EDWARDO 3-6on 3 CK [Catalytic activity/Vol] 110 U/L Normal 39-308 [facility] Comment on above: Performed By: #### H STROPN, TSH, BNP, BMP #### [facility] [address] [place] [address] Dr. Ivan Seo CK.MB [Mass/Vol] 0.77 ng/mL Normal <=3.60 [facility] Comment on above: Performed By: #### H STROPN, TSH, BNP, BMP #### [facility] [address] [place] [address] Dr. Ivan Seo HSTROP 6.1 pg/mL Normal 4.0-76.1 [facility] Comment on above: Result Comment: CUT- OFF POINTS HAVE BEEN ESTABLISHED BASED ON THE FOURTH UNIVERSAL DEFINITIONS OF MYOCARDIAL INFARCTION. THE UPPER REFERENCE LIMIT (URL) OF TROPONIN, DEFINED THE 99TH PERCENTILE OF cTnI DISTRIBUTION IN A REFERENCE POPULATION, HAS BEEN CONFIRMED THE DECISION THRESHOLD FOR DE DIAGNOSIS. Performed By: #### H STROPN, TSH, BNP, BMP #### [facility] [address] [place] [address] Dr. Ivan Seo CK [Catalytic activity/Vol] 113 U/L Normal 39-308 [facility] Comment on above: Performed By: #### H STROPN, TSH, BNP, BMP #### [facility] [address] [place] [address] Dr. Ivan Seo CK.MB [Mass/Vol] 0.62 ng/mL Normal <=3.60 [facility] Comment on above: Performed By: #### H STROPN, TSH, BNP, BMP #### [facility] [address] [place] [address] Dr. Ivan Seo HSTROP 7.4 pg/mL Normal 4.0-76.1 [facility] Comment on above: Result Comment: CUT- OFF POINTS HAVE BEEN ESTABLISHED BASED ON THE FOURTH UNIVERSAL DEFINITIONS OF MYOCARDIAL INFARCTION. THE UPPER REFERENCE LIMIT (URL) OF TROPONIN, DEFINED THE 99TH PERCENTILE OF cTnI DISTRIBUTION IN A REFERENCE POPULATION, HAS BEEN CONFIRMED THE DECISION THRESHOLD FOR DE DIAGNOSIS. Performed By: #### H STROPN, TSH, BNP, BMP #### [facility] [address] [place] [address] Dr. Ivan Seo CBC AUTO DIFFon 08-19-2022 BASO # 0.0 103/ul Normal 0.0-0.1 [facility] Comment on above: Performed By: #### H STROPN, TSH, BNP, BMP #### [facility] [address] [place] [address] Dr. Ivan Seo Basophils/100 WBC (Bld) 0.5 % Normal 0.2-2.0 [facility] Comment on above: Performed By: #### H STROPN, TSH, BNP, BMP #### [facility] [address] [place] [address] Dr. Ivan Seo EO # 0.2 103/ul Normal 0.0-0.7 [facility] Comment on above: Performed By: #### H STROPN, TSH, BNP, BMP #### [facility] [address] [place] [address] Dr. Ivan Seo Eosinophils/100 WBC (Bld) 2.9 % Normal 0.9-7.0 [facility] Comment on above: Performed By: #### H STROPN, TSH, BNP, BMP #### [facility] [address] [place] [address] Dr. Ivan Seo Erythrocyte distribution width (RBC) [Ratio] 12.7 % Normal 11.0-15.0 [facility] Comment on above: Performed By: #### H STROPN, TSH, BNP, BMP #### [facility] [address] [place] [address] Dr. Ivan Seo Hematocrit (Bld) [Volume fraction] 40.2 % Critically low 42.0-54.0 [facility] Comment on above: Performed By: #### H STROPN, TSH, BNP, BMP #### [facility] [address] [address] [address] Ivan Seo Hemoglobin (Bld) [Mass/Vol] 13.6 g/dL Critically low 14.0-18.0 [facility] Comment on above: Performed By: #### H STROPN, TSH, BNP, BMP #### [facility] [address] [address] [address] Ivan Seo IG # 0.06 10e3/ul Critically high 0.00-0.03 [facility] Comment on above: Performed By: #### H STROPN, TSH, BNP, BMP #### [facility] [address] [place] [address] Dr. Ivan Seo IG % 0.8 % Critically high 0.0-0.5 [facility] Comment on above: Performed By: #### H STROPN, TSH, BNP, BMP #### [facility] [address] [place] [address] Dr. Ivan Seo LYMPH # 2.0 103/ul Normal 1.2-3.8 [facility] Comment on above: Performed By: #### H STROPN, TSH, BNP, BMP #### [facility] [address] [place] [address] Dr. Ivan Seo Lymphocytes/100 WBC (Bld) 26.9 % Normal 20.5-60.0 [facility] Comment on above: Performed By: #### H STROPN, TSH, BNP, BMP #### [facility] [address] [address] [address] Ivan Seo MANUAL DIFF REQ NO Normal [facility] Comment on above: Performed By: #### H STROPN, TSH, BNP, BMP #### [facility] [address] [place] [address] Dr. Ivan Seo MCH (RBC) [Entitic mass] 30.4 pg Normal 25.9-34.0 [facility] Comment on above: Performed By: #### H STROPN, TSH, BNP, BMP #### [facility] [address] [address] [address] Ivan Seo MCHC (RBC) [Mass/Vol] 33.8 g/dL Normal 29.9-35.2 [facility] Comment on above: Performed By: #### H STROPN, TSH, BNP, BMP #### [facility] [address] [place] [address] Dr. Ivan Seo MCV (RBC) [Entitic vol] 89.9 fL Normal 80.0-94.0 [facility] Comment on above: Performed By: #### H STROPN, TSH, BNP, BMP #### [facility] [address] [place] [address] Dr. Ivan Seo MONO # 0.8 103/ul Normal 0.3-0.8 [facility] Comment on above: Performed By: #### H STROPN, TSH, BNP, BMP #### [facility] [address] [place] [address] Dr. Ivan Seo Monocytes/100 WBC (Bld) 9.9 % Normal 1.7-12.0 [facility] Comment on above: Performed By: #### H STROPN, TSH, BNP, BMP #### [facility] [address] [place] [address] Dr. Ivan Seo NEUT # 4.5 103/ul Normal 1.4-6.5 [facility] Comment on above: Performed By: #### H STROPN, TSH, BNP, BMP #### [facility] [address] [place] [address] Dr. Ivan Seo Neutrophils/100 WBC (Bld) 59.0 % Normal 43.0-75.0 [facility] Comment on above: Performed By: #### H STROPN, TSH, BNP, BMP #### [facility] [address] [place] [address] Dr. Ivan Seo Platelet mean volume (Bld) [Entitic vol] 9.1 fL Critically low 9.5-13.5 [facility] Comment on above: Performed By: #### H STROPN, TSH, BNP, BMP #### [facility] [address] [address] [address] Ivan Seo PLT 245 103/ul Normal 150-450 [facility] Comment on above: Performed By: #### H STROPN, TSH, BNP, BMP #### [facility] [address] [address] [address] Ivan Seo RBC 4.47 106/ul Critically low 4.70-6.10 [facility] Comment on above: Performed By: #### H STROPN, TSH, BNP, BMP #### [facility] [address] [address] [address] Ivan Seo WBC 7.6 103/ul Normal 4.0-11.0 [facility] Comment on above: Performed By: #### H STROPN, TSH, BNP, BMP #### [facility] [address] [address] [address] Ivan Seo DRUG SCREEN RAPID (URINE)on 08-19-2022 AMP Negative Normal NEGATIVE [facility] Comment on above: Performed By: #### H STROPN, TSH, BNP, BMP #### [facility] [address] [address] [address] Ivan Seo BAR Negative Normal NEGATIVE [facility] Comment on above: Performed By: #### H STROPN, TSH, BNP, BMP #### [facility] [address] [address] [address] Ivan Seo BUP Negative Normal NEGATIVE [facility] Comment on above: Performed By: #### H STROPN, TSH, BNP, BMP #### [facility] [address] [address] [address] Ivan Seo BZO Negative Normal NEGATIVE [facility] Comment on above: Performed By: #### H STROPN, TSH, BNP, BMP #### [facility] [address] [place] [address] Dr. Ivan Seo VONNIE Negative Normal NEGATIVE [facility] Comment on above: Performed By: #### H STROPN, TSH, BNP, BMP #### [facility] [address] [place] [address] Dr. Ivan Seo CUT-OFFS SEE BELOW Normal [facility] Comment on above: Result Comment: AMP (Amphetamine): [...] #### H STROPN, TSH, BNP, BMP #### [facility] [address] [place] [address] Dr. Ivan Seo DRUG CUT HEADER DRUG CLASS TEST SYSTEM CUT-OFF CONCENTRATIONS ARE FOLLOWS: Normal [facility] Comment on above: Performed By: #### H STROPN, TSH, BNP, BMP #### [facility] [address] [place] [address] Dr. Ivan Seo mAMP Negative Normal NEGATIVE [facility] Comment on above: Performed By: #### H STROPN, TSH, BNP, BMP #### [facility] [address] [place] [address] Dr. Ivan Seo MTD Negative Normal NEGATIVE [facility] Comment on above: Performed By: #### H STROPN, TSH, BNP, BMP #### [facility] [address] [place] [address] Dr. Ivan Seo OPI Negative Normal NEGATIVE [facility] Comment on above: Performed By: #### H STROPN, TSH, BNP, BMP #### [facility] [address] [place] [address] Dr. Ivan Seo OXY Negative Normal NEGATIVE [facility] Comment on above: Performed By: #### H STROPN, TSH, BNP, BMP #### [facility] [address] [place] [address] Dr. Ivan Seo PCP Negative Normal NEGATIVE [facility] Comment on above: Performed By: #### H STROPN, TSH, BNP, BMP #### [facility] [address] [address] [address] Ivan Seo PPX Negative Normal NEGATIVE [facility] Comment on above: Performed By: #### H STROPN, TSH, BNP, BMP #### [facility] [address] [address] [address] Ivan Seo TCA Negative Normal NEGATIVE [facility] Comment on above: Performed By: #### H STROPN, TSH, BNP, BMP #### [facility] [address] [address] [address] Ivan Seo THC Negative Normal NEGATIVE [facility] Comment on above: Performed By: #### H STROPN, TSH, BNP, BMP #### [facility] [address] [address] [address] Ivan Seo ECHOCARDIO M/2D COMPLETEon 0 08-19-2022 ECHOCARDIO M/2D COMPLETE Patient: SUJATA REYNA Exam Date: 08/19/2022 : 1975 Gender:M Ordering : DR JOSH HULL . Admission #: [id number] Family : Order #: [id number] CLICK HERE TO VIEW EXAM ECHOCARDIOGRAM REPORT [...] Colon M.D. on 08/19/2022 at 12:34 Normal [facility] LIPID PROFILEon 08-19-2022 CHOL-HDL RATIO NORM SEE BELOW Normal [facility] Comment on above: Result Comment: 3.3 - 4.4 LOW RISK 4.4 - 7.1 AVERAGE RISK 7.1 - 11.0 MODERATE RISK >11.0 HIGH RISK Performed By: #### H STROPN, TSH, BNP, BMP #### [facility] [address] [address] [address] Ivan Seo Cholesterol [Mass/Vol] 213 mg/dL Critically high <=200 [facility] Comment on above: Performed By: #### H STROPN, TSH, BNP, BMP #### [facility] [address] [address] [address] Ivan Seo Cholesterol in HDL [Mass/Vol] 40 mg/dL Normal 40-60 [facility] Comment on above: Performed By: #### H STROPN, TSH, BNP, BMP #### [facility] [address] [address] [address] Ivan Seo Cholesterol in LDL [Mass/Vol] 147.0 mg/dL Normal [facility] Comment on above: Performed By: #### H STROPN, TSH, BNP, BMP #### [facility] [address] [address] [address] Ivan Seo Cholesterol.total/Cho lesterol in HDL [Mass ratio] 5.3 {ratio} Normal [facility] Comment on above: Performed By: #### H STROPN, TSH, BNP, BMP #### [facility] [address] [address] [address] Ivan Seo HDL NORMAL > or = 60 mg/dl - LO W CARDIOVASCULAR RISK <40 mg/dl - HIGH CARDIOVASCULAR RISK Normal [facility] Comment on above: Performed By: #### H STROPN, TSH, BNP, BMP #### [facility] [address] [address] [address] Ivan Seo LDL CALC NORMAL SEE BELOW Normal [facility] Comment on above: Result Comment: <100 mg/dl OPTIMAL 100 - 129 mg/dl NEAR OR ABOVE OPTIMAL 130 - 159 mg/dl BORDERLINE HIGH 160 - 189 mg/dl HIGH >190 mg/dl VERY HIGH Performed By: #### H STROPN, TSH, BNP, BMP #### [facility] [address] [address] [address] Ivan Seo Triglyceride [Mass/Vol] 130 mg/dL Normal <=150 [facility] Comment on above: Performed By: #### H STROPN, TSH, BNP, BMP #### [facility] [address] [address] [address] Ivan Seo VLDL CALC 26.0 mg/dL Normal [facility] Comment on above: Performed By: #### H STROPN, TSH, BNP, BMP #### [facility] [address] [address] [address] Ivan Seo MAGNESIUMon 08-19-2022 Magnesium [Mass/Vol] 2.0 mg/dL Normal 1.8-2.4 [facility] Comment on above: Performed By: #### H STROPN, TSH, BNP, BMP #### [facility] [address] [address] [address] Ivan Seo PROF CHEM 8 (BAS METB)on Anion gap [Moles/Vol] 12.5 mmol/L Normal [facility] Comment on above: Performed By: #### H STROPN, TSH, BNP, BMP #### [facility] [address] [address] [address] Ivan Seo Calcium [Mass/Vol] 8.8 mg/dL Normal 8.5-10.1 [facility] Comment on above: Performed By: #### H STROPN, TSH, BNP, BMP #### [facility] [address] [address] [address] Ivan Seo Chloride [Moles/Vol] 104 mmol/L Normal 98-107 [facility] Comment on above: Performed By: #### H STROPN, TSH, BNP, BMP #### [facility] [address] [place] [address] Dr. Ivan Seo CO2 [Moles/Vol] 26.4 mmol/L Normal 21.0-32.0 [facility] Comment on above: Performed By: #### H STROPN, TSH, BNP, BMP #### [facility] [address] [address] [address] Ivan Seo Creatinine [Mass/Vol] 0.89 mg/dL Normal 0.70-1.30 [facility] Comment on above: Performed By: #### H STROPN, TSH, BNP, BMP #### [facility] [address] [place] [address] Dr. Ivan Seo EGFR-AF CAMEROONIAN >60 Normal >=60 [facility] Comment on above: Performed By: #### H STROPN, TSH, BNP, BMP #### [facility] [address] [place] [address] Dr. Ivan Seo EGFR-NON AF CAMEROONIAN >60 Normal >=60 [facility] Comment on above: Performed By: #### H STROPN, TSH, BNP, BMP #### [facility] [address] [place] [address] Dr. Ivan Seo Glucose [Mass/Vol] 103 mg/dL Normal 74-106 [facility] Comment on above: Performed By: #### H STROPN, TSH, BNP, BMP #### [facility] [address] [address] [address] Ivan Seo Potassium [Moles/Vol] 3.9 mmol/L Normal 3.5-5.1 [facility] Comment on above: Performed By: #### H STROPN, TSH, BNP, BMP #### [facility] [address] [place] [address] Dr. Ivan Seo Sodium [Moles/Vol] 139 mmol/L Normal 136-145 [facility] Comment on above: Performed By: #### H STROPN, TSH, BNP, BMP #### [facility] [address] [place] [address] Dr. Ivan Seo Urea nitrogen [Mass/Vol] 12.0 mg/dL Normal 7.0-18.0 [facility] Comment on above: Performed By: #### H STROPN, TSH, BNP, BMP #### [facility] [address] [place] [address] Dr. Ivan Seo Urea nitrogen/Creatinine [Mass ratio] 13.5 mg/mg Normal [facility] Comment on above: Performed By: #### H STROPN, TSH, BNP, BMP #### [facility] [address] [place] [address] Dr. Ivan Seo BNPon 08-18-2022 Natriuretic peptide B (Bld) [Mass/Vol] 77.0 pg/mL Normal <=450.0 [facility] Comment on above: Performed By: #### H STROPN, TSH, BNP, BMP #### [facility] [address] [place] [address] Dr. Ivan Seo CBC AUTO DIFFon 08-18-2022 BASO # 0.0 103/ul Normal 0.0-0.1 [facility] Comment on above: Performed By: #### H STROPN, TSH, BNP, BMP #### [facility] [address] [place] [address] Dr. Ivan Seo Basophils/100 WBC (Bld) 0.4 % Normal 0.2-2.0 [facility] Comment on above: Performed By: #### H STROPN, TSH, BNP, BMP #### [facility] [address] [place] [address] Dr. Ivan Seo EO # 0.2 103/ul Normal 0.0-0.7 [facility] Comment on above: Performed By: #### H STROPN, TSH, BNP, BMP #### [facility] [address] [place] [address] Dr. Ivan Seo Eosinophils/100 WBC (Bld) 2.7 % Normal 0.9-7.0 [facility] Comment on above: Performed By: #### H STROPN, TSH, BNP, BMP #### [facility] [address] [address] [address] Ivan Seo Erythrocyte distribution width (RBC) [Ratio] 12.7 % Normal 11.0-15.0 [facility] Comment on above: Performed By: #### H STROPN, TSH, BNP, BMP #### [facility] [address] [place] [address] Dr. Ivan Seo Hematocrit (Bld) [Volume fraction] 39.8 % Critically low 42.0-54.0 [facility] Comment on above: Performed By: #### H STROPN, TSH, BNP, BMP #### [facility] [address] [place] [address] Dr. Ivan Seo Hemoglobin (Bld) [Mass/Vol] 13.9 g/dL Critically low 14.0-18.0 [facility] Comment on above: Performed By: #### H STROPN, TSH, BNP, BMP #### [facility] [address] [place] [address] Dr. Ivan Seo IG # 0.04 10e3/ul Critically high 0.00-0.03 [facility] Comment on above: Performed By: #### H STROPN, TSH, BNP, BMP #### [facility] [address] [place] [address] Dr. Ivan Seo IG % 0.5 % Normal 0.0-0.5 [facility] Comment on above: Performed By: #### H STROPN, TSH, BNP, BMP #### [facility] [address] [place] [address] Dr. Ivan Seo LYMPH # 2.4 103/ul Normal 1.2-3.8 [facility] Comment on above: Performed By: #### H STROPN, TSH, BNP, BMP #### [facility] [address] [place] [address] Dr. Ivan Seo Lymphocytes/100 WBC (Bld) 29.4 % Normal 20.5-60.0 [facility] Comment on above: Performed By: #### H STROPN, TSH, BNP, BMP #### [facility] [address] [place] [address] Dr. Ivan Seo MANUAL DIFF REQ NO Normal [facility] Comment on above: Performed By: #### H STROPN, TSH, BNP, BMP #### [facility] [address] [place] [address] Dr. Ivan Seo MCH (RBC) [Entitic mass] 31.1 pg Normal 25.9-34.0 [facility] Comment on above: Performed By: #### H STROPN, TSH, BNP, BMP #### [facility] [address] [place] [address] Dr. Ivan Seo MCHC (RBC) [Mass/Vol] 34.9 g/dL Normal 29.9-35.2 [facility] Comment on above: Performed By: #### H STROPN, TSH, BNP, BMP #### [facility] [address] [place] [address] Dr. Ivan Seo MCV (RBC) [Entitic vol] 89.0 fL Normal 80.0-94.0 [facility] Comment on above: Performed By: #### H STROPN, TSH, BNP, BMP #### [facility] [address] [place] [address] Dr. Ivan Seo MONO # 0.8 103/ul Normal 0.3-0.8 [facility] Comment on above: Performed By: #### H STROPN, TSH, BNP, BMP #### [facility] [address] [place] [address] Dr. Ivan Seo Monocytes/100 WBC (Bld) 9.4 % Normal 1.7-12.0 [facility] Comment on above: Performed By: #### H STROPN, TSH, BNP, BMP #### [facility] [address] [place] [address] Dr. Ivan Seo NEUT # 4.8 103/ul Normal 1.4-6.5 [facility] Comment on above: Performed By: #### H STROPN, TSH, BNP, BMP #### [facility] [address] [place] [address] Dr. Ivan Seo Neutrophils/100 WBC (Bld) 57.6 % Normal 43.0-75.0 [facility] Comment on above: Performed By: #### H STROPN, TSH, BNP, BMP #### [facility] [address] [address] [address] Ivan Seo Platelet mean volume (Bld) [Entitic vol] 9.2 fL Critically low 9.5-13.5 [facility] Comment on above: Performed By: #### H STROPN, TSH, BNP, BMP #### [facility] [address] [address] [address] Ivan Seo PLT 262 103/ul Normal 150-450 [facility] Comment on above: Performed By: #### H STROPN, TSH, BNP, BMP #### [facility] [address] [place] [address] Dr. Ivan Seo RBC 4.47 106/ul Critically low 4.70-6.10 [facility] [facility] Comment on above: Performed By: #### H STROPN, TSH, BNP, BMP #### [facility] [address] [address] [address] Ivan Seo WBC 8.3 103/ul Normal 4.0-11.0 [facility] Comment on above: Performed By: #### H STROPN, TSH, BNP, BMP #### [facility] [address] [place] [address] Dr. Ivan Se[facility] SARS-CoV-2 (COVID-19) RNA THONG+probe Ql (Unsp spec) Not detected Normal NOT DETECTED [facility] Comment on above: Result Comment: When [...] for this test is supported by the [facility] Director of Health and Human Service's declaration that [...] #### H STROPN, TSH, BNP, BMP #### [facility] [address] [place] [address] Dr. Ivan Seo FREE T3on 08-18-2022 FREE T3 3.10 pg/mlL Normal 2.18-3.98 [facility] Comment on above: Performed By: #### M G, BMP #### [facility] [address] [place] [address] Dr. Ivan Seo FREE T4on 08-18-2022 Free T4 [Mass/Vol] 0.90 ng/dL Normal 0.76-1.46 [facility] Comment on above: Performed By: #### M G, BMP #### [facility] [address] [place] [address] Dr. Ivan Seo PROF CHEM 8 (BAS METB)on Anion gap [Moles/Vol] 10.4 mmol/L Normal [facility] Comment on above: Performed By: #### H STROPN, TSH, BNP, BMP #### [facility] [address] [place] [address] Dr. Ivan Seo Calcium [Mass/Vol] 9.1 mg/dL Normal 8.5-10.1 [facility] Comment on above: Performed By: #### H STROPN, TSH, BNP, BMP #### [facility] [address] [place] [address] Dr. Ivan Seo Chloride [Moles/Vol] 101 mmol/L Normal 98-107 [facility] Comment on above: Performed By: #### H STROPN, TSH, BNP, BMP #### [facility] [address] [place] [address] Dr. Ivan Seo CO2 [Moles/Vol] 30.1 mmol/L Normal 21.0-32.0 [facility] Comment on above: Performed By: #### H STROPN, TSH, BNP, BMP #### [facility] [address] [place] [address] Dr. Ivan Seo Creatinine [Mass/Vol] 0.97 mg/dL Normal 0.70-1.30 [facility] Comment on above: Performed By: #### H STROPN, TSH, BNP, BMP #### [facility] [address] [address] [address] Ivan Seo EGFR-AF CAMEROONIAN >60 Normal >=60 [facility] Comment on above: Performed By: #### H STROPN, TSH, BNP, BMP #### [facility] [address] [place] [address] Dr. Ivan Seo EGFR-NON AF CAMEROONIAN >60 Normal >=60 [facility] Comment on above: Performed By: #### H STROPN, TSH, BNP, BMP #### [facility] [address] [place] [address] Dr. Ivan Seo Glucose [Mass/Vol] 109 mg/dL Critically high 74-106 [facility] Comment on above: Performed By: #### H STROPN, TSH, BNP, BMP #### [facility] [address] [place] [address] Dr. Ivan Seo Potassium [Moles/Vol] 3.5 mmol/L Normal 3.5-5.1 [facility] Comment on above: Performed By: #### H STROPN, TSH, BNP, BMP #### [facility] [address] [place] [address] Dr. Ivan Seo Sodium [Moles/Vol] 138 mmol/L Normal 136-145 [facility] Comment on above: Performed By: #### H STROPN, TSH, BNP, BMP #### [facility] [address] [place] [address] Dr. Ivan Seo Urea nitrogen [Mass/Vol] 17.0 mg/dL Normal 7.0-18.0 [facility] Comment on above: Performed By: #### H STROPN, TSH, BNP, BMP #### [facility] [address] [address] [address] Ivan Seo Urea nitrogen/Creatinine [Mass ratio] 17.5 mg/mg Normal [facility] Comment on above: Performed By: #### H STROPN, TSH, BNP, BMP #### [facility] [address] [address] [address] Ivan Seo TROPONIN, HIGH SENSITIVITYon 08-18-2022 HSTROP 5.7 pg/mL Normal 4.0-76.1 [facility] Comment on above: Result Comment: CUT- OFF POINTS HAVE BEEN ESTABLISHED BASED ON THE FOURTH UNIVERSAL DEFINITIONS OF MYOCARDIAL INFARCTION. THE UPPER REFERENCE LIMIT (URL) OF TROPONIN, DEFINED THE 99TH PERCENTILE OF cTnI DISTRIBUTION IN A REFERENCE POPULATION, HAS BEEN CONFIRMED THE DECISION THRESHOLD FOR DE DIAGNOSIS. Performed By: #### H STROPN, TSH, BNP, BMP #### [facility] [address] [address] [address] Ivan Seo HSTROP 6.8 pg/mL Normal 4.0-76.1 [facility] Comment on above: Result Comment: CUT- OFF POINTS HAVE BEEN ESTABLISHED BASED ON THE FOURTH UNIVERSAL DEFINITIONS OF MYOCARDIAL INFARCTION. THE UPPER REFERENCE LIMIT (URL) OF TROPONIN, DEFINED THE 99TH PERCENTILE OF cTnI DISTRIBUTION IN A REFERENCE POPULATION, HAS BEEN CONFIRMED THE DECISION THRESHOLD FOR DE DIAGNOSIS. Performed By: #### H STROPN, TSH, BNP, BMP #### [facility] [address] [address] [address] Ivan Seo TSHon 08-18-2022 TSH 3.636 uIU/mL Normal 0.358-3.740 [facility] Comment on above: Performed By: #### H STROPN, TSH, BNP, BMP #### [facility] [id number] Ivan Seo XR CHEST 1 Von [...] by: ELENA KNIGHT Date: 2022-08-18 20:09 Normal [facility] CBC AUTO DIFFon 06-05-2022 BASO # 0.0 103/ul Normal 0.0-0.1 [facility] Comment on above: Performed By: #### H STROPN, TSH, BNP, BMP #### [facility] [address] [address] [address] Ivan Seo Basophils/100 WBC (Bld) 0.5 % Normal 0.2-2.0 [facility] Comment on above: Performed By: #### H STROPN, TSH, BNP, BMP #### [facility] [address] [place] [address] Dr. Ivan Seo EO # 0.2 103/ul Normal 0.0-0.7 [facility] Comment on above: Performed By: #### H STROPN, TSH, BNP, BMP #### [facility] [address] [address] [address] Ivan Seo Eosinophils/100 WBC (Bld) 2.1 % Normal 0.9-7.0 [facility] Comment on above: Performed By: #### H STROPN, TSH, BNP, BMP #### [facility] [address] [place] [address] Dr. Ivan Seo Erythrocyte distribution width (RBC) [Ratio] 13.1 % Normal 11.0-15.0 [facility] Comment on above: Performed By: #### H STROPN, TSH, BNP, BMP #### [facility] [address] [address] [address] Ivan Seo Hematocrit (Bld) [Volume fraction] 41.7 % Critically low 42.0-54.0 [facility] Comment on above: Performed By: #### H STROPN, TSH, BNP, BMP #### [facility] [address] [place] [address] Dr. Ivan Seo Hemoglobin (Bld) [Mass/Vol] 14.2 g/dL Normal 14.0-18.0 [facility] Comment on above: Performed By: #### H STROPN, TSH, BNP, BMP #### [facility] [address] [place] [address] Dr. Ivan Seo IG # 0.06 10e3/ul Critically high 0.00-0.03 [facility] Comment on above: Performed By: #### H STROPN, TSH, BNP, BMP #### [facility] [address] [address] [address] Ivan Seo IG % 0.8 % Critically high 0.0-0.5 [facility] Comment on above: Performed By: #### H STROPN, TSH, BNP, BMP #### [facility] [address] [place] [address] Dr. Ivan Seo LYMPH # 1.8 103/ul Normal 1.2-3.8 [facility] Comment on above: Performed By: #### H STROPN, TSH, BNP, BMP #### [facility] [address] [place] [address] Dr. Ivan Seo Lymphocytes/100 WBC (Bld) 23.4 % Normal 20.5-60.0 [facility] Comment on above: Performed By: #### H STROPN, TSH, BNP, BMP #### [facility] [address] [place] [address] Dr. Ivan Seo MANUAL DIFF REQ NO Normal [facility] Comment on above: Performed By: #### H STROPN, TSH, BNP, BMP #### [facility] [address] [place] [address] Dr. Ivan Seo MCH (RBC) [Entitic mass] 30.8 pg Normal 25.9-34.0 [facility] Comment on above: Performed By: #### H STROPN, TSH, BNP, BMP #### [facility] [address] [place] [address] Dr. Ivan Seo MCHC (RBC) [Mass/Vol] 34.1 g/dL Normal 29.9-35.2 [facility] Comment on above: Performed By: #### H STROPN, TSH, BNP, BMP #### [facility] [address] [address] [address] Ivan Seo MCV (RBC) [Entitic vol] 90.5 fL Normal 80.0-94.0 [facility] Comment on above: Performed By: #### H STROPN, TSH, BNP, BMP #### [facility] [address] [place] [address] Dr. Ivan Seo MONO # 1.1 103/ul Critically high 0.3-0.8 [facility] Comment on above: Performed By: #### H STROPN, TSH, BNP, BMP #### [facility] [address] [place] [address] Dr. Ivan Seo Monocytes/100 WBC (Bld) 14.2 % Critically high 1.7-12.0 [facility] Comment on above: Performed By: #### H STROPN, TSH, BNP, BMP #### [facility] [address] [place] [address] Dr. Ivan Seo NEUT # 4.4 103/ul Normal 1.4-6.5 [facility] Comment on above: Performed By: #### H STROPN, TSH, BNP, BMP #### [facility] [address] [place] [address] Dr. Ivan Seo Neutrophils/100 WBC (Bld) 59.0 % Normal 43.0-75.0 [facility] Comment on above: Performed By: #### H STROPN, TSH, BNP, BMP #### [facility] [address] [place] [address] Dr. Ivan Seo Platelet mean volume (Bld) [Entitic vol] 9.2 fL Critically low 9.5-13.5 [facility] Comment on above: Performed By: #### H STROPN, TSH, BNP, BMP #### [facility] [address] [place] [address] Dr. Ivan Seo PLT 277 103/ul Normal 150-450 [facility] Comment on above: Performed By: #### H STROPN, TSH, BNP, BMP #### [facility] [address] [address] [address] Ivan Seo RBC 4.61 106/ul Critically low 4.70-6.10 [facility] Comment on above: Performed By: #### H STROPN, TSH, BNP, BMP #### [facility] [address] [place] [address] Dr. Ivan Seo WBC 7.5 103/ul Normal 4.0-11.0 [facility] Comment on above: Performed By: #### H STROPN, TSH, BNP, BMP #### [facility] [address] [place] [address] Dr. Ivan Seo FREE T3on 06-05-2022 FREE T3 3.34 pg/mlL Normal 2.18-3.98 [facility] Comment on above: Performed By: #### M G, BMP #### [facility] [address] [place] [address] Dr. Ivan Seo GLYCOHEMOGLOBIN A1Con 2021 ADA RECOMMENDATION SEE BELOW Normal [facility] Comment on above: Result Comment: ADA RECOMMENDED LIMIT 4.0 - 6.0 ADA THERAPEUTIC TARGET < 7.0 ACTION SUGGESTED > 7.0 Performed By: #### H STROPN, TSH, BNP, BMP #### [facility] [address] [place] [address] Dr. Ivan Seo Glucose [Mass/Vol] 114 mg/dL Normal [facility] Comment on above: Performed By: #### H STROPN, TSH, BNP, BMP #### [facility] [address] [address] [address] Ivan Seo HbA1c (Bld) [Mass fraction] 5.6 % Normal 4.5-6.2 [facility] Comment on above: Performed By: #### H STROPN, TSH, BNP, BMP #### [facility] [address] [place] [address] Dr. Ivan Seo LIPID PROFILEon 06-05-2022 CHOL-HDL RATIO NORM SEE BELOW Normal [facility] Comment on above: Result Comment: 3.3 - 4.4 LOW RISK 4.4 - 7.1 AVERAGE RISK 7.1 - 11.0 MODERATE RISK >11.0 HIGH RISK Performed By: #### C MP, TSH, FT3, T4, LIPID #### [facility] [address] [address] [address] Ivan Seo Cholesterol [Mass/Vol] 207 mg/dL Critically high <=200 [facility] Comment on above: Performed By: #### C MP, TSH, FT3, T4, LIPID #### [facility] [address] [place] [address] Dr. Ivan Seo Cholesterol in HDL [Mass/Vol] 46 mg/dL Normal 40-60 [facility] Comment on above: Performed By: #### C MP, TSH, FT3, T4, LIPID #### [facility] [address] [place] [address] Dr. Ivan Seo Cholesterol in LDL [Mass/Vol] 142.8 mg/dL Normal [facility] Comment on above: Performed By: #### C MP, TSH, FT3, T4, LIPID #### [facility] [address] [place] [address] Dr. Ivan Seo Cholesterol.total/Cho lesterol in HDL [Mass ratio] 4.5 {ratio} Normal [facility] Comment on above: Performed By: #### C MP, TSH, FT3, T4, LIPID #### [facility] [address] [place] [address] Dr. Ivan Seo HDL NORMAL > or = 60 mg/dl - LO W CARDIOVASCULAR RISK <40 mg/dl - HIGH CARDIOVASCULAR RISK Normal [facility] Comment on above: Performed By: #### C MP, TSH, FT3, T4, LIPID #### [facility] [address] [place] [address] Dr. Ivan Seo LDL CALC NORMAL SEE BELOW Normal [facility] Comment on above: Result Comment: <100 mg/dl OPTIMAL 100 - 129 mg/dl NEAR OR ABOVE OPTIMAL 130 - 159 mg/dl BORDERLINE HIGH 160 - 189 mg/dl HIGH >190 mg/dl VERY HIGH Performed By: #### C MP, TSH, FT3, T4, LIPID #### [facility] [address] [place] [address] Dr. Ivan Seo Triglyceride [Mass/Vol] 91 mg/dL Normal <=150 [facility] Comment on above: Performed By: #### C MP, TSH, FT3, T4, LIPID #### [facility] [address] [address] [address] Ivan Seo VLDL CALC 18.2 mg/dL Normal [facility] Comment on above: Performed By: #### C MP, TSH, FT3, T4, LIPID #### [facility] [address] [address] [address] Ivan Seo OCC BLD IMMUNO SCREENon OCCULT BLOOD Negative Normal NEGATIVE [facility] Comment on above: Performed By: #### H STROPN, TSH, BNP, BMP #### [facility] [address] [address] [address] Ivan Seo PROF 14(COMP METB)on 022 Albumin [Mass/Vol] 4.0 g/dL Normal 3.4-5.0 [facility] Comment on above: Performed By: #### C MP, TSH, FT3, T4, LIPID #### [facility] [address] [place] [address] Dr. Ivan Seo Albumin/Globulin [Mass ratio] 1.1 {ratio} Normal [facility] Comment on above: Performed By: #### C MP, TSH, FT3, T4, LIPID #### [facility] [address] [address] [address] Ivan Seo ALP [Catalytic activity/Vol] 110 U/L Normal 46-116 [facility] Comment on above: Performed By: #### C MP, TSH, FT3, T4, LIPID #### [facility] [address] [address] [address] Ivan Seo ALT [Catalytic activity/Vol] 122 U/L Critically high 16-63 [facility] Comment on above: Performed By: #### C MP, TSH, FT3, T4, LIPID #### [facility] [address] [address] [address] Ivan Seo Anion gap [Moles/Vol] 13.0 mmol/L Normal [facility] Comment on above: Performed By: #### C MP, TSH, FT3, T4, LIPID #### [facility] [address] [place] [address] Dr. Ivan Seo AST [Catalytic activity/Vol] 37 U/L Normal 15-37 [facility] Comment on above: Performed By: #### C MP, TSH, FT3, T4, LIPID #### [facility] [address] [place] [address] Dr. Ivan Seo Bilirubin [Mass/Vol] 0.6 mg/dL Normal 0.2-1.0 [facility] Comment on above: Performed By: #### C MP, TSH, FT3, T4, LIPID #### [facility] [address] [place] [address] Dr. Ivan Seo Calcium [Mass/Vol] 9.3 mg/dL Normal 8.5-10.1 [facility] Comment on above: Performed By: #### C MP, TSH, FT3, T4, LIPID #### [facility] [address] [place] [address] Dr. Ivan Seo Chloride [Moles/Vol] 102 mmol/L Normal 98-107 [facility] Comment on above: Performed By: #### C MP, TSH, FT3, T4, LIPID #### [facility] [address] [place] [address] Dr. Ivan Seo CO2 [Moles/Vol] 29.1 mmol/L Normal 21.0-32.0 [facility] Comment on above: Performed By: #### C MP, TSH, FT3, T4, LIPID #### [facility] [address] [place] [address] Dr. Ivan Seo Creatinine [Mass/Vol] 0.84 mg/dL Normal 0.70-1.30 [facility] Comment on above: Performed By: #### C MP, TSH, FT3, T4, LIPID #### [facility] [address] [place] [address] Dr. Ivan Seo EGFR-AF CAMEROONIAN >60 Normal >=60 [facility] Comment on above: Performed By: #### C MP, TSH, FT3, T4, LIPID #### [facility] [address] [place] [address] Dr. Ivan Seo EGFR-NON AF CAMEROONIAN >60 Normal >=60 [facility] Comment on above: Performed By: #### C MP, TSH, FT3, T4, LIPID #### [facility] [address] [place] [address] Dr. Ivan Seo Globulin (S) [Mass/Vol] 3.8 g/dL Normal [facility] Comment on above: Performed By: #### C MP, TSH, FT3, T4, LIPID #### [facility] [address] [place] [address] Dr. Ivan Seo Glucose [Mass/Vol] 106 mg/dL Normal 74-106 [facility] Comment on above: Performed By: #### C MP, TSH, FT3, T4, LIPID #### [facility] [address] [place] [address] Dr. Ivan Seo Potassium [Moles/Vol] 4.1 mmol/L Normal 3.5-5.1 [facility] Comment on above: Performed By: #### C MP, TSH, FT3, T4, LIPID #### [facility] [address] [place] [address] Dr. Ivan Seo Protein [Mass/Vol] 7.8 g/dL Normal 6.4-8.2 [facility] Comment on above: Performed By: #### C MP, TSH, FT3, T4, LIPID #### [facility] [address] [place] [address] Dr. Ivan Seo Sodium [Moles/Vol] 140 mmol/L Normal 136-145 [facility] Comment on above: Performed By: #### C MP, TSH, FT3, T4, LIPID #### [facility] [address] [place] [address] Dr. Ivan Seo Urea nitrogen [Mass/Vol] 18.0 mg/dL Normal 7.0-18.0 [facility] Comment on above: Performed By: #### C MP, TSH, FT3, T4, LIPID #### [facility] [address] [place], [place] [address] Dr. Ivan Seo Urea nitrogen/Creatinine [Mass ratio] 21.4 mg/mg Normal [facility] Comment on above: Performed By: #### C MP, TSH, FT3, T4, LIPID #### [facility] [address] [place], [place] [address] Dr. Ivan Seo T4on 06-05-2022 T4 [Mass/Vol] 7.40 ug/dL Normal 4.50-12.10 [facility] Comment on above: Performed By: #### M G, BMP #### [facility] [address] [place], [place] [address] Dr. Ivan Seo TSHon 06-05-2022 TSH 2.196 uIU/mL Normal 0.358-3.740 [facility] Comment on above: Performed By: #### C MP, TSH, FT3, T4, LIPID #### [facility] [address] [address] [address] vIan Seo Vital Signs Date Time Vital Sign Value Performing Clinician Facility 09-24-2023 08:15-0400 Blood Pressure Location [facility] 09-24-2023 08:15-0400 Body temperature 98.42 [degF] [facility] 09-24-2023 08:15-0400 Diastolic blood pressure 79 mm[Hg] [facility] 09-24-2023 08:15-0400 Heart rate 64 /min [facility] 09-24-2023 08:15-0400 Respiratory rate 16 /min [facility] 09-24-2023 08:15-0400 Systolic blood pressure 131 mm[Hg] [facility] 05-14-2023 09:16-0500 Diastolic blood pressure 90 mm[Hg] Eduardo NILL [facility] 05-14-2023 09:16-0500 Heart rate 70 /min Eduardo NILL [facility] 05-14-2023 09:16-0500 Mean blood pressure 111 mm[Hg] Eduardo NILL [facility] 05-14-2023 09:16-0500 Respiratory rate 19 /min Eduardo NILL [facility] 05-14-2023 09:16-0500 SaO2% (BldA) [Mass fraction] 96 % Eduardo NILL [facility] 05-14-2023 09:16-0500 Systolic blood pressure 153 mm[Hg] Eduardo NILL [facility] 05-14-2023 09:10-0500 Diastolic blood pressure 95 mm[Hg] Eduardo NILL [facility] 05-14-2023 09:10-0500 Heart rate 71 /min Eduardo NILL [facility] 05-14-2023 09:10-0500 Mean blood pressure 110 mm[Hg] Eduardo NILL [facility] 05-14-2023 09:10-0500 Respiratory rate 16 /min Eduardo NILL [facility] 05-14-2023 09:10-0500 SaO2% (BldA) [Mass fraction] 97 % Eduardo NILL [facility] 05-14-2023 09:10-0500 Systolic blood pressure 141 mm[Hg] Eduardo NILL [facility] 05-14-2023 09:05-0500 Diastolic blood pressure 95 mm[Hg] Eduardo NILL [facility] 05-14-2023 09:05-0500 Heart rate 71 /min Eduardo NILL [facility] 05-14-2023 09:05-0500 Respiratory rate 18 /min Eduardo NILL [facility] 05-14-2023 09:05-0500 SaO2% (BldA) [Mass fraction] 97 % Eduardo NILL [facility] 05-14-2023 09:05-0500 Systolic blood pressure 141 mm[Hg] Eduardo NILL [facility] 05-14-2023 09:00-0500 Mean blood pressure 105 mm[Hg] Eduardo NILL [facility] 05-14-2023 08:55-0500 Body temperature 97.7 [degF] Eduardo NILL [facility] 05-14-2023 08:50-0500 Respiratory rate 23 /min Eduardo NILL [facility] 05-14-2023 08:45-0500 Respiratory rate 20 /min Eduardo NILL [facility] 05-14-2023 08:40-0500 Respiratory rate 21 /min Eduardo NILL [facility] 05-14-2023 07:03-0500 Blood Pressure Location Eduardo NILL [facility] 05-14-2023 07:03-0500 Body temperature 98.24 [degF] Eduardo NILL [facility] 04-14-2023 13:09-0400 Blood Pressure Location Eduardo NILL [facility] 04-14-2023 13:09-0400 Diastolic blood pressure 84 mm[Hg] Eduardo NILL [facility] 04-14-2023 13:09-0400 Heart rate 72 /min Eduardo NILL [facility] 04-14-2023 13:09-0400 Respiratory rate 16 /min Eduardo NILL [facility] 04-14-2023 13:09-0400 Systolic blood pressure 118 mm[Hg] Eduardo NILL [facility] 09-04-2022 08:24-0500 Blood Pressure Location [facility] 09-04-2022 08:24-0500 Diastolic blood pressure 70 mm[Hg] [facility] 09-04-2022 08:24-0500 Systolic blood pressure 124 mm[Hg] [facility] Encounters Encounter Date Encounter Type Care Provider Facility Start: 11-02-2023 ambulatory JUSTUS LEE [facility] Start: 09-24-2023 End: 09-24-2023 Patient encounter procedure [facility] Start: 07-20-2023 End: 07-20-[address] [facility] Start: 06-14-[address] [facility] Start: 06-14-2023 End: 06-14-[address] [facility] Start: 05-26-2023 End: 05-27-2023 ambulatory Eduardo R NILL Facility:[facility] Start: 05-14-2023 End: 05-15-2023 ambulatory Eduardo R NILL Facility[place] Start: 05-14-2023 End: 05-14-2023 Patient encounter procedure Eduardo Zurita KEMAR [facility] Start: 05-04-2023 End: 05-04-[address] [facility] Start: 04-23-2023 End: 04-23-2023 ambulatory [facility] Start: 04-14-2023 End: 04-15-2023 ambulatory Josh Hull Facility: [facility] Start: 04-14-2023 End: 04-14-2023 Patient encounter procedure Eduardo Zurita KEMAR [facility] Start: 03-23-2023 End: 03-23-[address] [facility] Start: 03-04-2023 ambulatory Eduardo REINOSO [facility] Start: 11-13-2022 End: 11-13-2022 ambulatory [facility] Start: 09-25-2022 End: 09-26-[address] JOSH HULL . Facility: Start: 09-11-2022 End: 09-12-2022 Evaluation and management of inpatient DR JOSH HULL . Facility:[facility] Start: 09-04-2022 End: 09-04-2022 ambulatory DR JOSH HULL . Facility:[facility] Start: 09-04-2022 End: 09-04-2022 Patient encounter procedure Benton CARL [facility] Start: 08-27-2022 End: 08-28-[address] JOSH HULL . Facility:[facility] Start: 08-18-2022 End: 08-20-[address] JOSH HULL . Facility:[facility] Start: 06-08-2022 Encounter for genera l adult medical examination without abnormal findings DR JOSH HULL . [facility] Start: 06-05-2022 End: 06-06-[address] JOSH HULL . Facility:[facility] Start: 06-05-2022 End: 06-06-2022 Encounter for general adult medical examination without abnormal findings DR JOSH HULL . Facility:[facility] Procedures Date Procedure Procedure Detail Performing Clinician Start: 05-14-2023 Colonoscopic polypectomy Eduardo REINOSO Start: 05-14-2023 Excision of dermatofibroma Benton CARL Comment on above: right posterior thig h Start: 05-14-2023 Excision of lipoma o f shoulder Benton CARL Start: 08-26-2022 Cardiac ablation usi ng fluoroscopy guidance Eduardo REINOSO Start: 06-05-[address] CONNOR HULL . Comment on above: Performed By: #### M G, BMP #### [facility] [address] [place] [address] Dr. Ivan Seo Cardiac ablation usi ng fluoroscopy guidance Benton CARL Hernia repair Benton CARL Repair of right ingu inal hernia Eduardo KILGORETerrell Plan of Treatment Date Care Activity Detail Author Start: 09-24-2023 ambulatory Ambulatory Facility:[facility] Immunizations Immunization Date Immunization Notes Care Provider Fa [facility] 06-08-2022 influenza virus vaccine, unspecified formulation Benton CARL [facility] 04-10-2022 influenza virus vaccine, unspecified formulation Benton CARL [facility] 04-10-2021 influenza virus vaccine, unspecified formulation Benton CARL [facility] 03-25-2020 [id number] Benton CARL [facility] 03-18-2020 influenza virus vaccine, unspecified formulation Benton CARL [facility] 04-03-2019 influenza virus vaccine, live, attenuated, for intranasal use Benton CARL [facility] 03-27-2019 influenza virus vaccine, unspecified formulation Benton CARL [facility] 06-01-2018 influenza virus vaccine, unspecified formulation Bentonalfa CARL [facility] NEGATED: Highlighted row has not occurred!09-12-2021 SARS-CoV-2 (COVID-19) Ad26 vaccine, recombinant Bentonalfa CARL [facility] Payers Date Payer Category Payer Unknown [id number] 2.16.84 [id number] 1975 Unknown [id number] 2.16.84 [id number] 1975 Unknown [id number] 2.16.84 [id number] 1974 Unknown [id number] 2.16.84 [id number] 1974 Unknown [id number] 2.16.84 [id number] 1974 Unknown [id number] 2.16.84 [id number] 1974 Unknown [id number] 2.16.8 [id number] 1974 Unknown [id number] 2.16.8 [id number] 1974 Unknown [id number] 2.16.8 [id number] 1974 Unknown [id number] 2.16.8 [id number] 1959 Unknown [id number] Social History Date Type Detail Facility Start: 09-04-2022 End: 09-24-2023 Tobacco smoking status Ex-smoker (finding) [facility] Comment on above: Quit 2008 Sex Assigned At Male [facility] Tobacco smoking status Never [facility] [place] Comment on above: Quit 2008 Functional Status Date Assessment Result Facility 09-24-2023 Functional Status N/A [facility] 05-14-2023 Functional Status N/A [facility] 04-14-2023 Functional Status N/A [facility] 09-04-2022 Functional Status N/A [facility] Clinical Notes 09-04-2022 to 11-02-2023 Note Date & Type Note Facility 11-02-2023 Note Cardiovascular Medic [facility] SUBJECTIVE Chief Complaint Patient presents with AVNRT Congestive Heart Failure Hypertension Sujata Reyna is a 48 y.o. male here for follow-up. HPI PMHx: SVT, NSVT, s/p LOOP, s/p AVRNT ablation 08/2022, s/p CTI + posteroseptal pathway ablation He has been more fatigued for the past few weeks. He has some intermittent sharp left sided chest pains, lasts seconds and resolves on its own. Is not triggered by activity. He has noticed increased shortness of breath with activity. Denies palpitations, orthopnea, PND, LE edema, dizziness/LH. Patient Active Problem List Diagnosis Abnormal cardiovascular stress test Near syncope Tachycardia Abnormal ECG Left bundle branch block (LBBB) determined by electrocardiography Intermittent palpitations Chronic systolic heart failure (CMS/HCC) Unstable angina (CMS/HCC) PSVT (paroxysmal supraventricular tachycardia) (CMS/HCC) AVNRT (AV erica re-entry tachycardia) (CMS/HCC) Myocardiopathy (CMS/HCC) History of cardiac radiofrequency ablation Single subsegmental pulmonary embolism without acute cor pulmonale (CMS/HCC) Non-sustained ventricular tachycardia (CMS/HCC) Impotence Benign prostatic hyperplasia with urinary obstruction BMI 35.0-35.9,adult Former smoker Glycosuria Prostatitis Status post placement of implantable loop recorder Anxiety History of pulmonary embolism LBBB (left bundle branch block) Lipoma of left shoulder Neoplasm of uncertain behavior of skin of thigh Screening for malignant neoplasm of colon Typical atrial flutter (CMS/HCC) Hallux rigidus, left foot Dermatofibroma of thigh Hyperplastic polyp of sigmoid colon Past Medical History: Diagnosis Date Abnormal ECG Arrhythmia AVNRT (AV erica re-entry tachycardia) CHF (congestive heart failure) (CMS/HCC) Hypertension No family history on file. Social History Tobacco Use Smoking status: Former Types: Cigarettes Start date: 2002 Quit date: 2008 Years since quittin.3 Passive exposure: Past Smokeless tobacco: Never Substance Use Topics Alcohol use: Yes Comment: ocassionally Drug use: Never No Known Allergies ROS Constitutional: Positive for malaise/fatigue. Cardiovascular: Positive for chest pain ( rare ) and dyspnea on exertion. All other systems reviewed and are negative. OBJECTIVE Visit Vitals BP 128/72 (BP Location: Left arm, Patient Position: Sitting) Pulse 67 Ht 1.753 m (5' 9 ) Wt 104 kg (230 lb) SpO2 97% BMI 33.97 kg/m??? Smoking Status Former BSA 2.25 m??? Medications: Current Outpatient Medications: aspirin 81 mg EC tablet, 1 (one) time each day at the same time., Disp: , Rfl: dapagliflozin propanediol (Farxiga) 10 mg, Take 1 tablet (10 mg) by mouth once daily as directed., Disp: 90 tablet, Rfl: 3 metoprolol succinate XL (Toprol XL) 100 mg 24 hr tablet, Take 1 tablet (100 mg) by mouth once daily as directed. Do not crush or chew., Disp: 90 tablet, Rfl: 3 sacubitril-valsartan (Entresto) 49-51 mg tablet, Take 1 tablet by mouth in the morning and at bedtime., Disp: 180 tablet, Rfl: 3 terazosin (Hytrin) 10 mg capsule, Take 10 mg by mouth in the morning., Disp: , Rfl: Physical Exam Constitutional: Appearance: Normal appearance. He is normal weight. HENT: Head: Normocephalic and atraumatic. Right Ear: External ear normal. Left Ear: External ear normal. Eyes: Extraocular Movements: Extraocular movements intact. Pupils: Pupils are equal, round, and reactive to light. Neck: Vascular: No carotid bruit. Cardiovascular: Rate and Rhythm: Normal rate and [...] Thought content normal. Judgment: Judgment normal. Labs: Admission on 06/14/2023, Discharged on 06/14/2023 Component Date Value Ref Range Status Ventricular Rate 06/14/2023 64 BPM Final Atrial Rate 06/14/2023 64 BPM Final MO Interval 06/14/2023 182 ms Final QRS DURATION 06/14/2023 152 ms Final QT Interval 06/14/2023 406 ms Final QTC CALCULATION(BAZETT) 06/14/2023 418 ms Final P Austin 06/14/2023 18 degrees Final R-Austin 06/14/2023 -9 degrees Final T Wave Austin 06/14/2023 135 degrees Final Ventricular Rate 06/14/2023 81 BPM Final Atrial Rate 06/14/2023 81 BPM Final MO Interval 06/14/2023 182 ms Final QRS DURATION 06/14/2023 150 ms Final QT Interv (more content not included)... [facility] 11-02-2023 Note Patient here for 3 m o follow up NSVT, dilated cardiomyopathy, AVRNT, and acute PE. C/o fatigue and DESAI. Denies palpitations, LE edema, and syncope. Says chest pain is rare . Had echo and labs in Jul 2023. Review of Systems Constitutional: Positive for malaise/fatigue. Cardiovascular: Positive for chest pain ( rare ) and dyspnea on exertion. All other systems reviewed and are negative. [facility] 09-24-2023 Hospital Discharge instructions Patient Education 09/24/2023 08:36:48 Benign Prostatic Hyperplasia Benign Prostatic Hyperplasia Benign prostatic hyperplasia (BPH) is an enlarged prostate gland that is caused by the normal aging process. The prostate may get bigger as a man gets older. The condition is not caused by cancer. The prostate is a walnut-sized gland that is involved in the production of semen. It is located in front of the rectum and below the bladder. The bladder stores urine. The urethra carries stored urine out of the body. An enlarged prostate can press on the urethra. This can make it harder to pass urine. The buildup of urine in the bladder can cause infection. Back pressure and infection may progress to bladder damage and kidney (renal) failure. What are the causes? This condition is part of the normal aging process. However, not all men develop problems from this condition. If the prostate enlarges away from the urethra, urine flow will not be blocked. If it enlarges toward the urethra and compresses it, there will be problems passing urine. What increases the risk? This condition is more likely to develop in men older than 50 years. What are the signs or [...] urethra. Follow these instructions at home: Take ypov-tgc-[id number] and prescription medicines only as told by your health care provider. Monitor your symptoms for any changes. Contact your health care provider with any changes. Avoid drinking large amounts of liquid before going to bed or out in public. Avoid or reduce how much caffeine or alcohol you drink. Give yourself time when you urinate. Keep all follow-up visits. This is important. Contact a health care provider if: You have unexplained back pain. Your symptoms do not get better with treatment. You develop side effects from the medicine you are taking. Your urine becomes very dark or has a bad smell. Your lower abdomen becomes distended and you have trouble passing urine. Get help right away if: You have a fever or chills. You suddenly cannot urinate. You feel light-headed or very dizzy, or you faint. There are large amounts of blood or clots in your urine. Your urinary problems become hard to manage. You develop moderate to severe low back or flank pain. The flank is the side of your body between the ribs and the hip. These symptoms may be an emergency. Get help right away. Call 911. Do not wait to see if the symptoms will go away. Do not drive yourself to the hospital. Summary Benign prostatic hyperplasia (BPH) is an enlarged prostate that is caused by the normal aging process. It is not caused by cancer. An enlarged prostate can press on the urethra. This can make it hard to pass urine. This condition is more likely to develop in men older than 50 years. Get help right away if you suddenly cannot urinate. This information is not intended to replace advice given to you by your health care provider. Make sure you discuss any questions you have with your health care provider. Document Revised: 12/31/2021 Document Reviewed: 12/31/2021 [employer] Patient Education 2022 Exhibition A. Follow Up Care 09/04/2022 09:22:56 With:SIDDHARTHA MOLINA, Benton Zurita, URL Address: [address] [place], [place] [id number]- When: Unknown [facility] 07-20-2023 Note NE Electrophysiology Consult Note [facility] Reason for visit: svt, nsvt, s/p [...] describe, this event was reviewed by Dr. Verma and was noted in sinus rhythm he was instructed to increase his Toprol to 100 mg daily and thought he was told to take 100 mg twice daily and that is what has been taking ECG 07/20/2023 sinus rhythm 60 bpm 05/04/[address] verma LOOP reveals suggestion of atrial flutter / [...] monitor placed due to being admitted at [facility] for chest discomfort and acute PE. [...] for VT/SVTs --------- Previous 08/[address] verma HPI: Sujata Reyna is a 47 y.o. [...] was not done. Since his discharge from [facility], he was admitted to [facility] for chest pain. He was found to have an acute PE and was started on Eliquis. BLE doppler showed small nonocclusive right femoral vein thrombus. He also noted that he had also traveled down to [place] via car the few days prior to episode. Since his admission at [facility] last week, he has been feeling better. [...] of Systems Constitutional (more content not included)... [facility] 07-20-2023 Note Patient here for fol low up ablation. Denies chest pain, SOB, palpitations, and bleeding on Eliquis. Says sometimes he feels something that's hard for him to describe. Says his BP continues to run high despite the increase in metoprolol to 100mg bid. Review of Systems All other systems reviewed and are negative. [facility] 06-14-2023 Note OMPREHENSIVE EP STUD Y & POSTEROSEPTAL PATHWAY ABLATION PROCEDURE NOTE DATE OF PROCEDURE: 06/14/2023 PERFORMING PHYSICIAN: Dr. Rishabh Verma AIR INTELLIGENCE SPECIALIST: Dr Stone Cloud INDICATIONS FOR PROCEDURE: 1. [...] was not done. Since his discharge from [facility], he was admitted to [facility] for chest pain. He was found to [...] under ICE guidance and fluoroscopy with a Donvoan needle. LA pressure was noted to be [...] performed CTI ablation (more content not included)... [facility] 06-14-2023 Note Patient: Sujata shukla Procedure Information Date/Time: 06/14/23829 Procedure: Ablation atrial flutter - to be scheduled before due to insurance Location: [facility] FEED [facility] 1 EP / [facility] (Cath) Providers: Rishabh Verma MD Clinical information reviewed: Allergies Meds Physical Exam Airway Mallampati: II TM distance: >3 FB Neck ROM: full Cardiovascular Dental Pulmonary Abdominal Anesthesia Plan ASA 2 CSE Anesthetic plan and risks discussed with patient. Use of blood products discussed with patient who. Additional Equipment Requests [facility] 05-17-2023 Note [id number] [facility] 05-14-2023 Hospital Discharge instructions Patient Education [...] unsweetened, w/added ascorbic acid 1 cup 0.5 [place] 1 cup 0.7 Vegetables Cooked Green beans 1 cup 4.0 Carrots 1/2 cup sliced 2.3 Peas 1 cup 8.8 Potato (baked, with skin) 1 medium potato 3.8 Raw [place] (with peel) 1 cucumber 1.5 Lettuce 1 [...] 8.7 Peanuts 1/2 cup 7.9 Chart from [facility] 2013. SEEK IMMEDIATE MEDICAL CARE IF: [...] of Agriculture (USDA) National Nutrient Database at: http://www.[employer].usda.gov/fnic/foodc omp/search/ Created using data from the USDA National Nutrient Database for Standard Reference. Available at http://www.[employer].usda.gov/fnic/foodc omp/search/. Information adapted from: [facility] Patient Information 2010 [employer]. [facility] 2012 http://www.[employer]/contents/d pzedmdvpets-xbmnjua-rahinp-the-bas ics Follow Up Care 04/14/2023 14:21:37 With:Eduardo REINOSO Address: [address] [place] [address] Business (1) When:7 to 10 days [facility] 05-14-2023 Note Patient: MARCO REYNA Age: 47 years Sex: Male : 1975 Associated Diagnoses: None Author: Eduardo REINOSO MD Subjective no changes to [facility] Comment on above: Result Comment: Elec [...] an ARB and consider an additional medication [facility] 05-04-2023 Note NE Electrophysiology Consult Note [facility] Reason for visit: svt, nsvt, s/p loop, s/p avnrt ablation Date of Telehealth Visit: 05/04/2023 The patient was notified that using 3rd green party telecommunication application (e.g., [employer]) is not HIPPA compliant and may carry some privacy risks. Yes The visit was conducted [id number]-rt-[id number] with the use of audio and video [...] monitor placed due to being admitted at [facility] for chest discomfort and acute PE. [...] for VT/SVTs --------- Previous 08/[address] verma HPI: Sujata Reyna is a 47 y.o. [...] was not done. Since his discharge from [facility], he was admitted to [facility] for chest pain. He was found to have an acute PE and was started on Eliquis. BLE doppler showed small nonocclusive right femoral vein thrombus. He also noted that he had also traveled down to [place] via car the few days prior to episode. Since his admission at [facility] last week, he has been feeling better. Chest pain is intermittent but improved. He denies dyspnea,He had an event monitor placed and this revealed NSVT again with symptoms of dizziness. ( Strips attached) PMH- HTN PSH- no pertinent cardiac procedures/surgery FMH- Father passed 48 yo aneurysm- (back of neck), HTN; Social- Former smoker 17 yrs- 1 PPD, rufus (more content not included)... [facility] 04-23-2023 Note NE Electrophysiology Consult Note [facility] Reason for visit: svt, nsvt, s/p [...] was noted T wave oversensing and noise. 4/25/23 HPI: Patient for follow-up s/p EP study/01/17. 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 Post ablation patient continued to have symptoms of palpitations, and an event monitor placed due to being admitted at [facility] for chest discomfort and acute PE. [...] for VT/SVTs --------- Previous 08/[address] verma HPI: Sujata Reyna is a 47 y.o. [...] unremarkable. EP study was done by Dr Wan and a intermediate RP tachycardia was induced. No ventricular overdrive pacing was performed to differentiate between SVT. Radiofrequency ablation of slow pathway was performed and he was discharged. Ventricular stimulation for VT was not done. Since his discharge from [facility], he was admitted to [facility] for chest pain. He was found to have an acute PE and was started on Eliquis. BLE doppler showed small nonocclusive right femoral vein thrombus. He also noted that he had also traveled down to [place] via car the few days prior to episode. Since his admission at [facility] last week, he has been feeling better. [...] (CARDIA) Difficulty o (more content not included)... [facility] 04-23-2023 Note Patient here to disc uss medications. Had echo last week. He has concerns with metoprolol and energy level. Denies chest pain and palpitations. Review of Systems Constitutional: Positive for malaise/fatigue. Cardiovascular: Positive for dyspnea on exertion. Neurological: Positive for light-headedness ( when crouched down ). All other systems reviewed and are negative. [facility] 04-14-2023 Note Chief Complaint consultation for colonoscopy and several skin lumps HPI Staff 47 year old male presents on consultation from Dr. Hull for screening colonoscopy and several skin masses. [...] Entresto 24 mg-26 (more content not included)... [facility] Comment on above: Result Comment: Elec tronically Signed By: KEMAR MOLINA, Eduardo Galloway\Date and Time Signed: 04/14/23 17:00 EDT 03-23-2023 Note NE Electrophysiology Consult Note [facility] Reason for visit: wound check s/p [...] monitor placed due to being admitted at [facility] for chest discomfort and acute PE. [...] for VT/SVTs --------- Previous 08/[address] verma HPI: Sujata Reyna is a 47 y.o. [...] was not done. Since his discharge from [facility], he was admitted to [facility] for chest pain. He was found to have an acute PE and was started on Eliquis. BLE doppler showed small nonocclusive right femoral vein thrombus. He also noted that he had also traveled down to [place] via car the few days prior to episode. Since his admission at [facility] last week, he has been feeling better. [...] file Physically Abus (more content not included)... [facility] 11-13-2022 Note NE Electrophysiology Consult Note [facility] Reason for visit: wound check s/p loop implant HPI: Patient here for wound check of loop implant wound looks good is healing well, no concerns for erythema, hematoma, tenderness, drainage. patient denies aches chills fever. States he has not really had any episodes of lightheadedness may be a mild 1 but nothing significant. 10/20/22 HPI: Patient for follow-up s/p EP . 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 Post ablation patient continued to have symptoms of palpitations, and an event monitor placed due to being admitted at [facility] for chest discomfort and acute PE. [...] for VT/SVTs --------- Previous 08/[address] verma HPI: Sujata Reyna is a 47 y.o. [...] was not done. Since his discharge from [facility], he was admitted to [facility] for chest pain. He was found to have an acute PE and was started on Eliquis. BLE doppler showed small nonocclusive right femoral vein thrombus. He also noted that he had also traveled down to [place] via car the few days prior to episode. Since his admission at [facility] last week, he has been feeling better. [...] on file N (more content not included)... [facility] 09-04-2022 Hospital Discharge instructions Patient Education 09/04/2022 [...] urethra. Follow these instructions at home: Take qkph-uhm-xyqvwhi and prescription medicines only as told by [...] 06/14/2006 Document Revised: 05/09/2019 Document Reviewed: 07/19/2017 [employer] Patient Education 2020 Exhibition A. Follow Up Care 09/12/2021 08:41:31 With:Benton CARL MD, URL Address: [address] [place], [place] [id number]- When: Unknown [facility] Evaluation + Plan note Future Appointments Appointment Date:09/03/2023 08:00:00 AM Scheduled Provider:Benton CARL MD Location:[facility] Appointment Type:URO Office Visit Diagnostic Tests PendingPSA Total 07/29/23 [facility] Evaluation + Plan note Future Appointments Appointment Date:05/14/2023 09:00:00 AM Scheduled Provider: Location:[facility] Appointment Type:Surgery FT Appointment Date:09/03/2023 08:00:00 AM Scheduled Provider:Benton CARL MD Location:[facility] Appointment Type:URO Office Visit [facility] [place] Evaluation + Plan note Future Appointments Appointment Date:09/03/2023 08:00:00 AM Scheduled Provider:Benton CARL MD Location:[facility] Appointment Type:URO Office Visit [facility] Evaluation + Plan note Future Appointments Appointment Date:2024 08:30:00 AM Scheduled Provider:Benton CARL MD Location:[facility] Appointment Type:URO Office Visit Diagnostic Tests PendingPSA Total 06/28/24 [facility] Hospital course Narrative No data available for this section [facility] Hospital Discharge instructions No data available for this section General Surgery [place] Progress note No data available for this section [facility] Summary Purpose Family History No Family History Records Found No data available for this section No data available for this section No Family History Records Found No data available for this section No Family History Records Found Advance Directives No Advanced Directives Records FoundNo Advanced Directives Records FoundNo Advanced Directives Records Found Additional Source Comments Patient Care team informatio n (unrecognized section and content) Personnel Name: Josh Hull MD Address: Address: [address] [place] [address] Personnel Name: Josh Hull MD Address: Address: [address] [place] [address] Personnel Name: Josh Hull MD Address: Address: [address] [place] [address] Personnel Name: Josh Hull MD Address: Address: [address] [place] [address] (unrecognized sect ion and content) No Status Records FoundNo Status Records FoundNo Status Records Found INFORMATION SOURCE (unrecogn ized section and content) DATE CREATED AUTHOR [facility]/04/2022 [facility] DATE CREATED AUTHOR AUTHOR'S ORGANIZ ATION 09/17/2023 [facility] DATE CREATED AUTHOR AUTHOR'S ORGANIZ ATION 11/06/2023 [facility] FOR RECORDS PERTAINING TO PATIENTS WHO ARE [...] BE BASED ON THE PRIMARY CLINICAL RECORDS. [employer] provides no warranty or guarantee of the accuracy or completeness of information in this document.
--- NOTE | 2023-11-07 03:02 | ED.GENADUL1 ---
HPI HPI - General Adult General Chief complaint: Extremity Problem, Nontraumatic Stated complaint: Pain in arms and neck Time Seen by Provider: 11/07/23 02:56 Source: patient Mode of arrival: walk-in Limitations: no limitations History of Present Illness HPI narrative: past history of HTN. Presents complaining of pain of both arms and btw his shoulder blades. This pain has resolved. He was seen by his PCP a couple of days ago. Had ongoing arm pain at that time but thought it was a strain or similar and did not inform him. the pain did resolve and Now has pain of his anterior neck. Throat not sore. No dyspnea. Related Data Allergies Allergy/AdvReac Type Severity Reaction Status Date / Time No Known Drug Allergies Allergy Verified 11/07/23 02:41 Opioid HPI Opioid Management Most Recent Opioid Data: Last Pain Scale 8 11/07/23 02:56 Review of Systems ROS Status of ROS 10 or more systems reviewed and unremarkable except as noted in history and below Exam Constitutional Vital Signs, click to edit/add: Last Vital Signs Temp 98.9 F 11/07/23 02:41 Pulse 63 11/07/23 06:20 Resp 23 H 11/07/23 06:20 BP 139/82 11/07/23 06:00 Pulse Ox 90 L 11/07/23 06:20 O2 Del Method Room Air 11/07/23 02:41 Common normals: no apparent distress, average body habitus, oriented x3, no limitations, healthy appearing, alert and well nourished [facility] Common normals: normocephalic and head/scalp atraumatic Eye Common normals: PERRL, EOMs intact bilaterally and conjunctivae normal Neck & C-Spine Common normals: full ROM and no lymphadenopathy Respiratory Common normals: normal respiratory effort, no retractions, no use of accessory muscles and clear to auscultation bilaterally Cardio Common normals: regular rate, regular rhythm, S1 normal heart sound and S2 normal heart sound GI Common normals: Normal to inspection, nondistended, normoactive bowel sounds present and soft to palpation Extremity Common normals: normal to inspection and full ROM Neuro Common normals: oriented x3, CN's II-XII intact bilaterally, moves all extremities and no focal motor deficits Psych Appearance: grossly normal Course Vital Signs Vital signs: Vital Signs Temperature 98.9 F 11/07/23 02:41 Pulse Rate 70 11/07/23 02:41 Respiratory Rate 18 11/07/23 02:41 Blood Pressure 174/96 H 11/07/23 02:41 Pulse Oximetry 98 11/07/23 02:41 Oxygen Delivery Method Room Air 11/07/23 02:41 Temperature 98.9 F 11/07/23 02:41 Pulse Rate 63 11/07/23 06:20 Respiratory Rate 23 H 11/07/23 06:20 Blood Pressure 139/82 11/07/23 06:00 Pulse Oximetry 90 L 11/07/23 06:20 Oxygen Delivery Method Room Air 11/07/23 02:41 Medical Decision Making MDM Narrative Medical decision making narrative: atypical presentation. complains of bilat arm pain for a couple of days and then back pain between his shoulder blades. this resolved and then about 3-4 hours prior to coming to the ED he developed anterior neck pain. No dyspnea, nausea. Throat not sore . Exam neg and neck nontender without lymphadenopathy. Patient treated as possible atypical angina with nitro without any benefit. Also no relief of his 8/10 pain with morphine. Given Toradol and solumedrol and has complete relief of his pain. Serial troponin neg. EKG NSR with LBBB. Labs with elevated eosinophils and elevated inflammatory markers. Patient discharged home asymptomatic. Discharged with a prescription of prednisone and is to follow up with his doctor to continue workup as to the cause of his atypical symptoms Lab Data Labs: Lab Results 11/07/23 11/07/23 Range/Units 03:13 05:39 WBC 11.8 H (4.0-11.0) 10^3/uL RBC 4.34 L (4.70-6.10) 10^6/uL Hgb 13.4 L (14.0-18.0) g/dL Hct 40.3 L (42.0-54.0) % MCV 92.9 (80.0-94.0) fL MCH 30.9 (25.9-34.0) pg MCHC 33.3 (29.9-35.2) g/dL RDW 13.1 (11.0-15.0) % Plt Count 291 (150-450) 10^3/uL MPV 9.3 L (9.5-13.5) fL Seg Neuts % (Manual) 56.0 Band Neutrophils % 1.0 (0-5) % Lymphocytes % (Manual) 12.0 L (20.5-60.0) % Atypical Lymphs % (Man) 6.0 % Monocytes % (Manual) 7.0 (1.7-12.0) % Eosinophils % (Manual) 18.0 H (0.9-7.0) % Basophils % (Manual) 0.0 L (0.2-2.0) % Neutrophils # (Manual) 6.60 H (1.4-6.5) 10^3/uL Band Neutrophils # 0.1 (0.0-0.3) 10^3/uL Lymphocytes # (Manual) 1.41 (1.20-3.80) 10^3/uL Abs Atypical Lymphs Man 0.70 Monocytes # (Manual) 0.82 H (0.30-0.80) 10^3/uL Eosinophils # (Manual) 2.12 H (0.00-0.70) 10^3/uL Basophils # (Manual) 0.00 (0.00-0.10) 10^3/uL ESR 32 H (<=15) mm/hr D-Dimer 0.30 (<=0.59) mg/L FEU Sodium 140 (136-145) mmol/L Potassium 3.4 L (3.5-5.1) mmol/L Chloride 104 (98-107) mmol/L Carbon Dioxide 24.7 (21.0-32.0) mmol/L Anion Gap 14.7 BUN 11.0 (7.0-18.0) mg/dL Creatinine 0.84 (0.70-1.30) mg/dL Est GFR ( Amer) >60 (>=60) Est GFR (Non-Af Amer) >60 (>=60) BUN/Creatinine Ratio 13.1 Glucose 107 H (74-106) mg/dL Calcium 9.0 (8.5-10.1) mg/dL Magnesium 2.1 (1.8-2.4) mg/dL Troponin I High Sens 5.2 5.0 (4.0-76.1) pg/mL C-Reactive Protein 2.36 H (<=0.50) mg/dL Imaging Data Chest x-ray: Radiologist's impression: ITS Impressions Chest X-Ray 11/07/23 03:05 IMPRESSION: Mildly enlarged cardiac silhouette reflecting cardiomegaly. Mild bibasilar streaky lung opacities reflect atelectasis with crowding of pulmonary vessels, less likely lung infiltrates. Electronically authenticated by: LADI ALVAREZ Date: 11/07/2023 03:36 Discharge Plan Discharge Stand Alone Forms: Portal Instructions Chief Complaint: Extremity Problem, Nontraumatic Clinical Impression: Pain in throat Patient Disposition: Home, Self-Care Mode of Transportation: Private Vehicle Print Language: Korean Instructions: Neck Pain (ED) Additional Instructions: follow up with Dr Hull in the next 2-3 days Referrals: Mahesh Hull MD [Primary Care Provider] - 1 week
--- NOTE | 2023-11-07 03:05 | XR_ITS ---
The [address] [address] Patient Name: SUJATA REYNA MRN: [id number] date: 1975 Sex: M Assigned Patient Location: ER Current Patient Location: ED.MAIN Accession/Order Number: [id number] Exam Date: 11/07/2023 03:11 Report Date: 11/07/2023 03:36 At the request of: ROHINI SHI Procedure: XR chest 1V EXAM: XR chest 1V HISTORY: chest pain COMPARISON: CT chest 03/16/2023 TECHNIQUE: Single frontal view chest x-ray FINDINGS: Mildly enlarged cardiac silhouette. Left chest wall cardiac loop recorder device. Mild bibasilar streaky lung opacities. No large pleural effusion, pneumothorax, or acute bony abnormality. XR/XR chest 1V IMPRESSION: Mildly enlarged cardiac silhouette reflecting cardiomegaly. Mild bibasilar streaky lung opacities reflect atelectasis with crowding of pulmonary vessels, less likely lung infiltrates. Electronically authenticated by: LADI ALVAREZ Date: 11/07/2023 03:36
[2023-11-07] MEDS: NITROGLYCERIN 0.4 MG BOTTLE 0.400000000000000022 MG PO (03:16)
[2023-11-07] MEDS: MORPHINE SULFATE 4 MG/ML VIAL IV (03:36)
[2023-11-07 04:20] LABS: Hematocrit 40.3 % (42.0-54.0); Hemoglobin 13.4 g/dL (14.0-18.0); Mean Corpuscular HGB Conc 33.3 g/dL (29.9-35.2); Mean Corpuscular Hemoglobin 30.9 pg (25.9-34.0); Mean Corpuscular Volume 92.9 fL (80.0-94.0); Mean Platelet Volume 9.3 fL (9.5-13.5); Platelet Count 291 10^3/uL (150-450); Red Blood Count 4.34 10^6/uL (4.70-6.10); Red Cell Distribution Width 13.1 % (11.0-15.0); White Blood Count 11.8 10^3/uL (4.0-11.0)
[2023-11-07 04:37] LABS: Anion Gap 14.7; BUN Creatinine Ratio 13.1; Carbon Dioxide 24.7 mmol/L (21.0-32.0); Chloride 104 mmol/L (98-107); Estimated GFR (African America >60 (>=60); Estimated GFR (Non-African Ame >60 (>=60); Glucose 107 mg/dL (74-106); Potassium 3.4 mmol/L (3.5-5.1); Sodium 140 mmol/L (136-145); Troponin I High Sensitivity 5.2 pg/mL (4.0-76.1)
[2023-11-07] MEDS: KETOROLAC TROMETHAMINE 30 MG/ML VIAL IVP (04:47)
[2023-11-07 05:13] LABS: C Reactive Protein 2.36 mg/dL (<=0.50); Erythrocyte Sedimentation Rate 32 mm/hr (<=15); Magnesium 2.1 mg/dL (1.8-2.4)
[2023-11-07 05:15] LABS: Band Neutrophils Absolute 0.1 10^3/uL (0.0-0.3); Lymphocytes Absolute Manual 1.41 10^3/uL (1.20-3.80); Monocytes Absolute Manual 0.82 10^3/uL (0.30-0.80)
[2023-11-07 05:16] LABS: Eosinophils Absolute Manual 2.12 10^3/uL (0.00-0.70)
[2023-11-07] MEDS: METHYLPREDNISOLONE SOD SUCC PF 125 MG/2 ML VIAL IVP (05:38)
== END 2023-11-07 06:34 | disposition home or self-care (01) ==
PROVIDERS: Emergency Provider Internal Medicine; PCP Family Medicine
DX: R07.0 Pain in throat (principal); I10 Essential (primary) hypertension; M54.2 Cervicalgia; M79.602 Pain in left arm; M79.601 Pain in right arm
CPT/HCPCS: 36415; 71045; 80048; 83735; 84484; 85007; 85027; 85378; 85652; 86140; 93005; 96374; 96375; 99285; J2919

== ENCOUNTER 2024-05-13 09:41 | Outpatient (OUT) | payer BC, SELFPAY ==
--- OUTSIDE RECORDS SUMMARY | 2024-05-13 09:44 | XMS_ITS | CCD ---
Author Organization [facility] Care Team Providers Care Bean Picker Name Role Phone Josh Hull Primary Care Physician IMKALA ., DR MORENO Attending Unavailable HOY ., [...] MÉNDEZ Consulting Unavailable ELENA KNIGHT Consulting Unavailable WILKES, ERNA Consulting Unavailable HOY ., DR MORENO Attending Unavailable HOY ., DR MORENO Consulting Unavailable HOY ., DR MORENO Primary Care Unavailable HOY ., DR MORENO Admitting Unavailable NILL, Eduardo R Referring Unavailable NILLEduardo R Attending Unavailable NILL, Eduardo R Admitting Unavailable NILL, Eduardo R Attending Unavailable HoyJosh Referring Unavailable NILL, Eduardo R Attending Unavailable Benton CARL Attending Unavailable MADELAINE, RISHABH Referring Unavailable MADELAINE, RISHABH Referring Unavailable MADELAINE, RISHAHB Referring Unavailable MADELAINE, RISHABH Referring Unavailable JUSTUS LEE Attending Unavailable MARIE MILLER Attending Unavailable MADELAINE, RISHABH Referring Unavailable MADELAINE, RISHABH Referring Unavailable MADELAINE, RISHABH Referring Unavailable MADELAINE, RISHABH Referring Unavailable VARSHA FISH Referring Unavailable MADELAINE, RISHABH Admitting Unavailable MADELAINE, RISHABH Attending Unavailable MADELAINE, RISHABH Referring Unavailable MADELAINE, RISHABH Referring Unavailable MADELAINE, RISHABH Referring Unavailable Allergies Allergy Classification Reported Allergen(s) Allergy Type Date of Onset Reaction(s) Facility (1 source) No Known Medication Allergies; Translations: [No Known Medication Allergies] Propensity to adverse reactions (disorder) [facility] Repository Medications Current Medications Medication Drug Class(es) [...] dysfunction, # 30 tab(s), Refills(s) 2, Pharmacy: [facility] 594, 175, cm, 08/30/20 8:53:00 EST, Height/Length Dosing, 109, kg, 08/30/20 8:53:00 EST, Weight Dosing Start Date: 08/30/20 Status: Ordered terazosin 10 mg oral capsule (4 sources) alpha-Adrenergic Kristen Start: 07-08-2023 take 1 capsule by mouth once daily terazosin 10 mg Cap 10 mg = 1 cap(s), Oral, Daily, # 90 cap(s), Refills(s) 3, [id number], 175, cm, 05/14/23 6:57:00 EST, Height/Length Dosing, 103.9, kg, 05/14/23 6:57:00 EST, Weight Dosing Start Date: 07/08/23 Status: Ordered Start: 09-04-2022 take 1 capsule by [facility] once daily terazosin 10 mg Cap 10 mg = 1 cap(s), Oral, Daily, # 90 cap(s), Refills(s) 3, [id number], 175, cm, 09/04/22 8:34:00 EST, Height/Length [...] genital organs (4 sources) Prostatitis 08-23-2019 Episodic Neoplasms of unspecified nature or uncertain behavior (5 sources) Neoplasm of uncertain behavior of skin; Translations: [Neoplasm of uncertain behavior of skin] Onset: 3 Episodic Nonspecific chest pain (1 source) Chest pain, unspecified; Translations: [CHEST PAIN UNSPECIFIED] Onset: 3 Episodic Other aftercare (1 source) prison (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) use of 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; 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] Onset: 3 Episodic Other aftercare (1 source) Other usp (current) drug therapy; Translations: [OTH COATING INSPECTOR CURRENT DRUG THERAPY] Onset: 3 Episodic Other [...] sleep apnea (adult) (pediatric)] Onset: 4 Chronic Screening and history of mental health and [...] Tachycardia, unspecified; Translations: [Palpitations] Onset: 08-18-2022 Episodic Malaise and fatigue (2 sources) Other fatigue; Translations: [Other fatigue] Onset: 11-02-2023 Episodic Residual codes; unclassified (3 sources) Other specified postprocedural states; Translations: [OTH SPECIFIED POSTPROCEDURAL STATES] Onset: 09-14-2022 Episodic Unclassified (1 source) CONTACT W/AND (SUSP) [...] medications and follow-up in 3-4 months. Thanks! Normal [facility] Telephoneon 11-04-2023 Telephone [id number] Sujata Reyna 1975 M Date Provider Department Center 11/04/2023 JUSTUS KEY. 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 FYI [facility] 08-18-2023 29 Addended by: CARROL SEVERINO on: 08/18/2023 08:58 AM Modules accepted: Orders [facility] 08-18-2023 36 Per Marie regarding recent echo: Echo is stable with no concerns, normal LV function Is he still feeling SOB If he is can get a BNP to see if he needs diuresis 08/18/2023- patient informed. He agrees to BNP. Lab order faxed to [facility]. He told me when his checks his BP after medications, his BP is good . When he checks BP in between medication doses, diastolic is running in the high 80's-low 90's. I asked him to continue to only check BP 1-2 hours after meds. [facility] 08-02-[address] Hull's office mad e aware on 07/30/2023 and order for echo was then faxed to [facility]. [facility] 07-30-2023 36 Nothing recent on loop, had svt 07/08 but that was it. I went up on entresto recently for his BP. We can always get an echo to assure not heart related [facility] 36 Patient's stepdaughter (who works for Dr. Hull) called to make you aware patient is c/o increased SOB and elevated BP's lately. You saw him last week. Did anything show on his loop? Or does he need an ECG? She said he didn't mention palpitations or LE edema. Please advise. Thanks. Normal [facility] Telephoneon 07-30-2023 Telephone [id number] Horace Reynaw Michael 1975 M Date Provider Department Center 07/30/2023 Alex8-JUAN MANUEL SEVERINOAH MARLIN ALEJANDRINA Santizo. 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 Post ablation patient continued to have symptoms of palpitations, and an event monitor placed due to being admitted at [facility] for chest discomfort and acute PE. Event [...] unremarkable. EP study was done by Dr Fish and a intermediate RP tachycardia was induced. No ventricular overdrive pacing was performed to differentiate between SVT. Radiofrequency ablation of slow pathway was performed and he was discharged. Ventricular stimulation for VT was not done. Since his discharge [facility], he was admitted to [facility] for chest pain. He was found to have an acute PE and was started on Eliquis. BLE doppler showed small nonocclusive right femoral vein thrombus. He also noted that he had also traveled down to [place] via car the few days prior to episode. Since his admission at [facility] last week, he has been feeling [...] (08/28/2022) O (more content not included)... Normal [facility] NURSNOTEon 06-14-2023 NURSNOTE RN educated pt on d/ c instructions. RN encouraged pt to voice any questions or concerns. Pt verbalizes no questions or concerns at this time. Normal [facility] Orders Onlyon 06-07-2023 Orders Only [id number] Sujata Reyna 1975 M Date Provider Department Center 06/07/2023 BELINDA ALVAREZ [facility] Heart[facility]AS No family history on file Normal [facility] General Surgery Office/Clini c Noteon 05-29-2023 [...] vaccine, live, trivalent 04/03/2019 Recorded Normal [facility] Comment on above: Result Comment: Elec [...] MOLINA, Benton Zurita Where: [facility] Postoperative Documentson Postoperative Documents [id number]#1 .00TIFF [facility] Reminderson 05-26-2023 Reminders - From: Leanne Iyer LPN To: GSN - Clinical; Sent: 05/26/2023 16:50:18 EST Show up: 04/13/2033 07:00:00 EDT Subject: colonoscopy recall Due Date/Time: 05/14/2033 07:00:00 EST Reminder/Recall Patient due for screening colonoscopy 05/14/2033. [facility] IntraOperative Documentson 07-19-2022 IntraOperative Documents [id number]# 1.00TIFF [facility] Consenton 05-17-2023 Consent [id number]#1 .00TIFF [facility] Discharge Instructionson Discharge Instructions [id number]#1 .00TIFF [facility] Main OR Intraoperative Recor don 05-17-2023 Main OR Intraoperative Record IntraOp Document Type FT Summary Primary Physician: Eduardo MELÉNDEZ MD Finalized Date/Time: 05/17/23 12:28:54 Pt. Name: AXEL SUJATAMichael Angeles D.O.B./Sex: 1975 Male Med Rec #: [id number] Physician: Eduardo MELÉNDEZ MD Financial #: [id number] Pt. Type: O Room/Bed: / Admit/Disch: 05/14/23 [...] Entry 2 Entry 3 Case Attendee Deppen NURSE GENERAL DUTY, Eunice Jones RN, Mel Duncan Role Performed NURSE GENERAL DUTY Carton Filling Machine Operator - Primary Scrub - Primary Time In [...] Time Out Deppen Eunice CLARKE, Given Participants Robert MCKEON, Evelin Valdivia, Mel Sweeney Sparks, Micala E, NILL MD, [...] Yes No Primary Surgeon KEMAR MOLINA, Eduardo MELÉNDEZ MD, Eduardo Maza 05/14/23 08:00:00 05/14/23 08:00:00 Stop 05/14/23 08:52:00 05/14/23 08:52:00 Anesthesia Type General General Surgical Service General General Wound Class 2 - Clean-Contaminated 1 - Clean Last Modified By: Evelin Jones RN, RN, BSN, [facility] 05/14/23 08:52:23 05/17/23 12:22:19 General Case [...] Post-Care Text: (more content not included)... Normal [facility] Operative Reporton Operative Report SURGERY DATE: 05/14/2023 [...] to Recovery Area in good condition. Eduardo Meléndez M.D. [facility] adelina Dictated: 05/14/2023 [id number] Transcribed: 05/14/2023 cc:Josh Hull M.D. [facility] Comment on above: Result Comment: Elec tronically Signed By: KEMAR MOLINA, Eduardo Zurita\.br\Date and Time Signed: 05/16/23 20:29 EST Progress Note-Physicianon Progress Note-Physician Patient: SUJATA REYNA [facility]: [id number] Age: 47 years Sex: Male : 1975 [...] list: All Problems Prostatitis / SNOMED CT 53354572 / Confirmed Screening for malignant neoplasm of colon / SNOMED CT 548452745 / Confirmed Obesity / SNOMED CT 7362918602 / Confirmed Neoplasm of uncertain behavior of skin of thigh / SNOMED CT 188038369 / Confirmed Lipoma of left shoulder / SNOMED CT 897395253 / Confirmed LBBB (left bundle branch block) / SNOMED CT 591257284 / Confirmed Impotence / SNOMED CT 6197475851 / Confirmed Hypertension / SNOMED CT 9170079145 / Confirmed History of pulmonary embolism / SNOMED CT 004717352 / Confirmed Glycosuria / SNOMED CT 59195542 / Confirmed Former smoker / SNOMED CT 63602621 / Confirmed Chronic congestive heart failure / SNOMED CT 023273535 / Confirmed Cardiomyopathy / SNOMED CT 779932599 / Confirmed BMI 33.0-33.9,adult / SNOMED CT 525968067 / Confirmed BPH with urinary obstruction / SNOMED CT 9919919411 / Confirmed Atrial fibrillation / SNOMED CT 23356073 / Confirmed Anxiety / SNOMED CT 42789050 / Confirmed Canceled: Elevated PSA / SNOMED CT 8365330476 Canceled: Pyuria / SNOMED CT 9131318 Canceled: Hesitancy / SNOMED CT 764590807 Canceled: 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 Repair of right inguinal hernia (4632765688). Social History Social & Psychosocial Habits Alcohol [...] adequate air exchange. Cardiovascular: Regular rhythm. Plan [place] [employer]esthesi[employer] (ASA) physical status classification: Class II. Anesthetic Preoperative Plan: Anesthesia General. Normal [facility] Comment on above: Result Comment: Elec tronically [...] meets criteria ( To home ). Normal [facility] Comment on above: Result Comment: Elec tronically Signed By: Ricardo Madrid Jr, DO\.br\Date and Time Signed: 05/16/23 07:07 EST Colonoscopy Procedure Report on 05-14-2023 Colonoscopy Procedure Report Patient: SUJATA REYNA Age: 47 years Sex: Male : 1975 Associated Diagnoses: None Author: Eduardo MELÉNDEZ MD Pre-Procedure Procedure Date 05/14/2023 09:00:00 . Procedure Type: Colonoscopy. Procedure provider Performed by Eduardo MELÉNDEZ MD. Referred by Josh Hull MD. Current [...] place. Impression and Plan Diagnosis: Colon, diverticulosis (KTK65-EB K57.30, Working, Medical). Course: Progressing as expected. Recommendations: Repeat colonoscopy:: In 5 years. Follow-up:: Await biopsy results in 3-5 days. Diet:: Regular diet. Medication resumption:: Continue current medications. Return to activities:: After 24 hours. Education and Follow-up: Counseled: Family. [facility] Comment on above: Other Comment: Angelita glasgow Attachment - attachment storage system not supported [id number] Can be viewed in source system Missing Attachment - attachment storage system not supported [id number] Can be viewed in source system Missing Attachment - attachment storage system not supported [id number] Can be viewed in source system Missing Attachment - attachment storage system not supported 3028147 Can be viewed in source system Consent for Treatmenton 04-28 Consent for Treatment [id number]#1 .00TIFF [facility] Discharge Instructionson Discharge Instructions AXEL SUJATA W :1975 Visit Date:05/14/2023 Inpatient Discharge Instructions Your Care Team Admitting Physician - Eduardo MELÉNDEZ MD Referring Physician - Eduardo MELÉNDEZ MD Reason for Your Visit SCREENING Your [...] instructed Remove Dressing On 1 Pharmacy Information [facility] Discharge Instructions Discharge Instructions Previously Scheduled Follow-Up Appointments Wednesday 8:00 AM EST With: SIDDHARTHA MOLINA, Benton Zurita Where: [facility] Comment on above: Result Comment: Elec tronically Signed By: Andrea MCKEON, Roseanna\.mikey\Date and Time Signed: 05/14/23 09:03 EST Inpatient Patient Summaryon 05-14-2023 Inpatient Patient Summary [address] [address] [facility] Clinical Discharge Instructions PERSON INFORMATION Name: SUJATA REYNA [facility]#:[id number] PHYSICIANS Admitting Physician: Eduardo MELÉNDEZ MD Attending Physician: Eduardo MELÉNDEZ MD PCP: Mikala MOLINA, Josh Discharge Diagnosis: Encounter for colorectal cancer screening; Encounter for screening for malignant neoplasm of rectum; Lipoma of back; Neoplasm of uncertain behavior of skin of thigh Comment: PATIENT EDUCATION INFORMATION Instructions: Medication Leaflets: Follow up: With: Address: When: Eduardo MELÉNDEZ [address], [address], [employer] [address] [place] [address] Business (1) Within 7 to 10 days Type Location Start Finish State [facility] Office Visit [facility] 09/03/2023 8:00 AM 09/03/2023 8:15 AM [...] Mouth every day. Refills: 3. Comment: Normal [facility] Main OR PACU I Recordon 04-28 Main OR PACU I Record PACU Phase I Docum ent Type FT Summary Primary Physician: Eduardo MELÉNDEZ MD Finalized Date/Time: 05/14/23 09:48:44 Pt. Name: SUJATA REYNA Michael /Sex: 1975 Male Med Rec #: [id number] Physician: Eduardo MELÉNDEZ MD Financial #: [id number] Pt. Type: O Room/Bed: / Admit/Disch: 05/14/23 [...] 09:25 Roseanna Mendez RN 05/14/23 09:48 Normal [facility] Main OR Preoperative Recordo n 05-14-2023 Main OR Preoperative Record Holding Area Document Type FT Summary Primary Physician: Eduardo MELÉNDEZ MD Finalized Date/Time: 05/14/23 06:58:55 Pt. Name: SUJATA REYNA /Sex: 1975 Male Med Rec #: [id number] Physician: Eduardo MELÉNDEZ MD Financial #: [id number] Pt. Type: O Room/Bed: / Admit/Disch: 05/14/23 [...] By: Sophia Membreno RN 05/14/23 06:58 Normal [facility] Monitor Recordon 05-14-2023 Monitor Record [id number]# 1.00TIFF Normal [facility] Outpatient Surgery Discharge Instructionon 05-14-2023 Outpatient Surgery Discharge Instruction [address] [address] Patient Discharge Instructions PERSON INFORMATION Name: SUJATA REYNA Date of : 1975 Current Date: 05/14/2023 08:58:25 PHYSICIANS Admitting Physician: Eduardo MELÉNDEZ MD Discharge Diagnosis: Encounter for colorectal cancer screening; Encounter for screening for malignant neoplasm of rectum; Lipoma of back; Neoplasm of uncertain behavior of skin of thigh AXEL, SUJATA Michael has been given the following list of [...] REYNA, have received the attached patient education materials/instruction s and have verbalized understanding: May we do a follow up call? Yes No I was present when discharge instructions were given Patient Signature Date Clinican/Nurse Signature Date Follow up: With: Address: When: Eduardo Otero [address], [address], [facility] [address] [place] [address] Business (1) Within 7 to 10 days Type Location Start [place] [facility] Office Visit [facility] 09/03/2023 8:00 AM 09/03/2023 8:15 AM Confirmed [facility] You may receive a survey from [employer] asking you to rate your care experience. Your feedback is important and will help us understand what we do well and how we can improve the quality of care we provide to you, your loved ones and our community. It?s an honor to serve you. Thank you for choosing [facility] HERE ARE THE MEDICATION CHANGES THAT OCCURRED [...] PATIENT EDUCATION INFORMATION Instructions: Medication Leaflets: Normal [facility] Patient Education - Texton 1 07-14-2022 Patient [...] unsweetened, w/added ascorbic acid 1 cup 0.5 [place] 1 cup 0.7 Vegetables Cooked Green beans 1 cup 4.0 Carrots 1/2 cup sliced 2.3 Peas 1 cup 8.8 Potato (baked, with skin) 1 medium potato 3.8 Raw [place] (with peel) 1 cucumber 1.5 Lettuce 1 [...] 8.7 Peanuts 1/2 cup 7.9 Chart from [facility] 2013. SEEK IMMEDIATE MEDICAL CARE IF: [...] Information adapted from: ExitCare? Patient Information ?2009 interclick [facility]. [facility] 2012 [email or web address] Normal [facility] Insurance Correspondenceon 1 07-06-2022 Insurance Correspondence [id number]# 1.00TIFF Normal [facility] Consent for Procedure/Surger yon 04-15-2023 Consent for Procedure/Surgery [id number] .00TIFF Normal [facility] Ambulatory Visit Summaryon 1 Ambulatory Visit Summary SUJATA REYNA :1975 Visit Date:04/14/2023 Ambulatory Visit Instructions Your Care Team Attending Physician - KEMAR MOLINA, Eduardo Zurita Primary Care Physician - Josh Hull MD Referring Physician - Josh Hull MD This [...] Appointments Wednesday 9:00 AM EST With: Where: [facility] Wednesday 8:00 AM EST With: Benton CARL MD Where: [facility] Physician Referralon 023 Physician Referral [id number]#1. 00CD:127 Normal [facility] MRI ABDOMEN WO W CONon 09-28 MRI [...] TRIPP CAMPO Date: 2022-09-28 08:56 Normal [facility] XR FOREIGN BODY EYEon 2022 XR FOREIGN BODY EYE EXAMINATION: XR FOREIGN BODY EYE HISTORY: Foreign body in eye COMPARISON: No relevant comparison available. FINDINGS: ORBITS: Negative for a metallic foreign body. OTHER: Negative. IMPRESSION: No metallic foreign body in the orbits Electronically authenticated by: TERESSA MCCONNELL Date: 2022-09-25 07:59 Normal [facility] CBC AUTO DIFFon 09-12-2022 BASO # 0.0 103/ul Normal 0.0-0.1 [facility] Comment on above: Performed By: #### H STROPN, TSH, BNP, BMP #### [facility] [address] [address] [address] Ivan Seo Basophils/100 WBC (Bld) 0.3 % Normal 0.2-2.0 [facility] Comment on above: Performed By: #### H STROPN, TSH, BNP, BMP #### [facility] [address] [address] [address] Ivan Seo EO # 0.0 103/ul Normal 0.0-0.7 [facility] Comment on above: Performed By: #### H STROPN, TSH, BNP, BMP #### [facility] [address] [address] [address] Ivan Seo Eosinophils/100 WBC (Bld) 0.3 % Critically low 0.9-7.0 [facility] Comment on above: Performed By: #### H STROPN, TSH, BNP, BMP #### [facility] [address] [place] [address] Dr. Ivan Seo Erythrocyte distribution width (RBC) [Ratio] 12.7 % Normal 11.0-15.0 [facility] Comment on above: Performed By: #### H STROPN, TSH, BNP, BMP #### [facility] [address] [place] [address] Dr. Ivan Seo Hematocrit (Bld) [Volume fraction] 32.9 % Critically low 42.0-54.0 [facility] Comment on above: Performed By: #### H STROPN, TSH, BNP, BMP #### [facility] [address] [place] [address] Dr. Ivan Seo Hemoglobin (Bld) [Mass/Vol] 11.5 g/dL Critically low 14.0-18.0 [facility] Comment on above: Performed By: #### H STROPN, TSH, BNP, BMP #### [facility] [address] [place] [address] Dr. Ivan Seo IG # 0.13 10e3/ul Critically high 0.00-0.03 [facility] Comment on above: Performed By: #### H STROPN, TSH, BNP, BMP #### [facility] [address] [place] [address] Dr. Ivan Seo IG % 1.0 % Critically high 0.0-0.5 [facility] Comment on above: Performed By: #### H STROPN, TSH, BNP, BMP #### [facility] [address] [place] [address] Dr. Ivan Seo LYMPH # 2.1 103/ul Normal 1.2-3.8 [facility] Comment on above: Performed By: #### H STROPN, TSH, BNP, BMP #### [facility] [address] [place] [address] Dr. Ivan Seo Lymphocytes/100 WBC (Bld) 15.6 % Critically low 20.5-60.0 [facility] Comment on above: Performed By: #### H STROPN, TSH, BNP, BMP #### [facility] [address] [place] [address] Dr. Ivan Seo MANUAL DIFF REQ NO Normal [facility] Comment on above: Performed By: #### H STROPN, TSH, BNP, BMP #### [facility] [address] [place] [address] Dr. Ivan Seo MCH (RBC) [Entitic mass] 31.3 pg Normal 25.9-34.0 [facility] Comment on above: Performed By: #### H STROPN, TSH, BNP, BMP #### [facility] [address] [place] [address] Dr. Ivan Seo MCHC (RBC) [Mass/Vol] 35.0 g/dL Normal 29.9-35.2 [facility] Comment on above: Performed By: #### H STROPN, TSH, BNP, BMP #### [facility] [address] [place] [address] Dr. Ivan Soe MCV (RBC) [Entitic vol] 89.4 fL Normal 80.0-94.0 [facility] Comment on above: Performed By: #### H STROPN, TSH, BNP, BMP #### [facility] [address] [place] [address] Dr. Ivan Seo MONO # 1.2 103/ul Critically high 0.3-0.8 [facility] Comment on above: Performed By: #### H STROPN, TSH, BNP, BMP #### [facility] [address] [place], [place] [address] Dr. Ivan Seo Monocytes/100 WBC (Bld) 9.1 % Normal 1.7-12.0 [facility] Comment on above: Performed By: #### H STROPN, TSH, BNP, BMP #### [facility] [address] [place] [address] Dr. Ivan Seo NEUT # 9.9 103/ul Critically high 1.4-6.5 [facility] Comment on above: Performed By: #### H STROPN, TSH, BNP, BMP #### [facility] [address] [place] [address] Dr. Ivan Seo Neutrophils/100 WBC (Bld) 73.7 % Normal 43.0-75.0 [facility] Comment on above: Performed By: #### H STROPN, TSH, BNP, BMP #### [facility] [address] [address] [address] Ivan Seo Platelet mean volume (Bld) [Entitic vol] 8.9 fL Critically low 9.5-13.5 [facility] Comment on above: Performed By: #### H STROPN, TSH, BNP, BMP #### [facility] [address] [address] [address] Ivan Seo PLT 264 103/ul Normal 150-450 [facility] Comment on above: Performed By: #### H STROPN, TSH, BNP, BMP #### [facility] [address] [place] [address] Dr. Ivan Seo RBC 3.68 106/ul Critically low 4.70-6.10 [facility] Comment on above: Performed By: #### H STROPN, TSH, BNP, BMP #### [facility] [address] [address] [address] Ivan Seo WBC 13.4 103/ul Critically high 4.0-11.0 [facility] Comment on above: Performed By: #### H STROPN, TSH, BNP, BMP #### [facility] [address] [place] [address] Dr. Ivan Seo PROF 14(COMP METB)on 023 Albumin [Mass/Vol] 3.1 g/dL Critically low 3.4-5.0 [facility] Comment on above: Performed By: #### H STROPN, TSH, BNP, BMP #### [facility] [address] [address] [address] Ivan Seo Albumin/Globulin [Mass ratio] 0.8 {ratio} Normal [facility] Comment on above: Performed By: #### H STROPN, TSH, BNP, BMP #### [facility] [address] [address] [address] Ivan Seo ALP [Catalytic activity/Vol] 81 U/L Normal 46-116 [facility] Comment on above: Performed By: #### H STROPN, TSH, BNP, BMP #### [facility] [address] [place] [address] Dr. Ivan Seo ALT [Catalytic activity/Vol] 43 U/L Normal 16-63 [facility] Comment on above: Performed By: #### H STROPN, TSH, BNP, BMP #### [facility] [address] [place] [address] Dr. Ivan Seo Anion gap [Moles/Vol] 11.7 mmol/L Normal [facility] Comment on above: Performed By: #### H STROPN, TSH, BNP, BMP #### [facility] [address] [place] [address] Dr. Ivan Seo AST [Catalytic activity/Vol] 18 U/L Normal 15-37 [facility] Comment on above: Performed By: #### H STROPN, TSH, BNP, BMP #### [facility] [address] [place] [address] Dr. Ivan Seo Bilirubin [Mass/Vol] 0.5 mg/dL Normal 0.2-1.0 [facility] Comment on above: Performed By: #### H STROPN, TSH, BNP, BMP #### [facility] [address] [place] [address] Dr. Ivan Seo Calcium [Mass/Vol] 8.9 mg/dL Normal 8.5-10.1 [facility] Comment on above: Performed By: #### H STROPN, TSH, BNP, BMP #### [facility] [address] [place] [address] Dr. Ivan Seo Chloride [Moles/Vol] 106 mmol/L Normal 98-107 [facility] Comment on above: Performed By: #### H STROPN, TSH, BNP, BMP #### [facility] [address] [place] [address] Dr. Ivan Seo CO2 [Moles/Vol] 27.7 mmol/L Normal 21.0-32.0 [facility] Comment on above: Performed By: #### H STROPN, TSH, BNP, BMP #### [facility] [address] [address] [address] Ivan Seo Creatinine [Mass/Vol] 0.75 mg/dL Normal 0.70-1.30 [facility] Comment on above: Performed By: #### H STROPN, TSH, BNP, BMP #### [facility] [address] [address] [address] Ivan Seo EGFR-AF MAURITIAN >60 Normal >=60 [facility] Comment on above: Performed By: #### H STROPN, TSH, BNP, BMP #### [facility] [address] [address] [address] Ivan Seo EGFR-NON AF MAURITIAN >60 Normal >=60 [facility] Comment on above: Performed By: #### H STROPN, TSH, BNP, BMP #### [facility] [address] [place] [address] Dr. Ivan Seo Globulin (S) [Mass/Vol] 3.8 g/dL Normal [facility] Comment on above: Performed By: #### H STROPN, TSH, BNP, BMP #### [facility] [address] [address] [address] Ivan Seo Glucose [Mass/Vol] 100 mg/dL Normal 74-106 [facility] Comment on above: Performed By: #### H STROPN, TSH, BNP, BMP #### [facility] [address] [address] [address] Ivan Seo Potassium [Moles/Vol] 3.4 mmol/L Critically low 3.5-5.1 [facility] Comment on above: Performed By: #### H STROPN, TSH, BNP, BMP #### [facility] [address] [address] [address] Ivan Seo Protein [Mass/Vol] 6.9 g/dL Normal 6.4-8.2 [facility] Comment on above: Performed By: #### H STROPN, TSH, BNP, BMP #### [facility] [address] [address] [address] Ivan Seo Sodium [Moles/Vol] 142 mmol/L Normal 136-145 [facility] Comment on above: Performed By: #### H STROPN, TSH, BNP, BMP #### [facility] [address] [place] [address] Dr. Ivan Seo Urea nitrogen [Mass/Vol] 16.0 mg/dL Normal 7.0-18.0 [facility] Comment on above: Performed By: #### H STROPN, TSH, BNP, BMP #### [facility] [address] [place] [address] Dr. Ivan Seo Urea nitrogen/Creatinine [Mass ratio] 21.3 mg/mg Normal [facility] Comment on above: Performed By: #### H STROPN, TSH, BNP, BMP #### [facility] [address] [place] [address] Dr. Ivan Seo BNPon 09-11-2022 Natriuretic peptide B (Bld) [Mass/Vol] 194.0 pg/mL Normal <=450.0 [facility] Comment on above: Performed By: #### B AGENT PRODUCER #### [facility] [address] [place] [address] Dr. Ivan Seo CBC AUTO DIFFon 09-11-2022 BASO # 0.0 103/ul Normal 0.0-0.1 [facility] Comment on above: Performed By: #### M G, BMP #### [facility] [address] [place] [address] Dr. Ivan Seo Basophils/100 WBC (Bld) 0.2 % Normal 0.2-2.0 [facility] Comment on above: Performed By: #### M G, BMP #### [facility] [address] [place] [address] Dr. Ivan Seo EO # 0.0 103/ul Normal 0.0-0.7 [facility] Comment on above: Performed By: #### M G, BMP #### [facility] [address] [place] [address] Dr. Ivan Seo Eosinophils/100 WBC (Bld) 0.0 % Critically low 0.9-7.0 [facility] Comment on above: Performed By: #### M G, BMP #### [facility] [address] [place] [address] Dr. Ivan Seo Erythrocyte distribution width (RBC) [Ratio] 12.7 % Normal 11.0-15.0 [facility] Comment on above: Performed By: #### M G, BMP #### [facility] [address] [place] [address] Dr. Ivan Seo Hematocrit (Bld) [Volume fraction] 34.5 % Critically low 42.0-54.0 [facility] Comment on above: Performed By: #### M G, BMP #### [facility] [address] [place] [address] Dr. Ivan Seo Hemoglobin (Bld) [Mass/Vol] 11.8 g/dL Critically low 14.0-18.0 [facility] Comment on above: Performed By: #### M G, BMP #### [facility] [address] [place] [address] Dr. Ivan Seo IG # 0.18 10e3/ul Critically high 0.00-0.03 [facility] Comment on above: Performed By: #### M G, BMP #### [facility] [address] [place] [address] Dr. Ivan Seo IG % 1.4 % Critically high 0.0-0.5 [facility] Comment on above: Performed By: #### M G, BMP #### [facility] [address] [place] [address] Dr. Ivan Seo LYMPH # 1.4 103/ul Normal 1.2-3.8 [facility] Comment on above: Performed By: #### M G, BMP #### [facility] [address] [place] [address] Dr. Ivan Seo Lymphocytes/100 WBC (Bld) 10.2 % Critically low 20.5-60.0 [facility] Comment on above: Performed By: #### M G, BMP #### [facility] [address] [place] [address] Dr. Ivan Seo MANUAL DIFF REQ NO Normal [facility] Comment on above: Performed By: #### M G, BMP #### [facility] [address] [place] [address] Dr. Ivan Seo MCH (RBC) [Entitic mass] 30.8 pg Normal 25.9-34.0 [facility] Comment on above: Performed By: #### M G, BMP #### [facility] [address] [place] [address] Dr. Ivan Seo MCHC (RBC) [Mass/Vol] 34.2 g/dL Normal 29.9-35.2 [facility] Comment on above: Performed By: #### M G, BMP #### [facility] [address] [place] [address] Dr. Ivan Seo MCV (RBC) [Entitic vol] 90.1 fL Normal 80.0-94.0 [facility] Comment on above: Performed By: #### M G, BMP #### [facility] [address] [place] [address] Dr. Ivan Seo MONO # 0.5 103/ul Normal 0.3-0.8 [facility] Comment on above: Performed By: #### M G, BMP #### [facility] [address] [place] [address] Dr. Ivan Seo Monocytes/100 WBC (Bld) 3.7 % Normal 1.7-12.0 [facility] Comment on above: Performed By: #### M G, BMP #### [facility] [address] [place] [address] Dr. Ivan Seo NEUT # 11.2 103/ul Critically high 1.4-6.5 [facility] Comment on above: Performed By: #### M G, BMP #### [facility] [address] [place] [address] Dr. Ivan Seo Neutrophils/100 WBC (Bld) 84.5 % Critically high 43.0-75.0 [facility] Comment on above: Performed By: #### M G, BMP #### [facility] [address] [place] [address] Dr. Ivan Seo Platelet mean volume (Bld) [Entitic vol] 9.2 fL Critically low 9.5-13.5 [facility] Comment on above: Performed By: #### M G, BMP #### [facility] [address] [address] [address] Ivan Seo PLT 276 103/ul Normal 150-450 [facility] Comment on above: Performed By: #### M G, BMP #### [facility] [address] [address] [address] Ivan Seo RBC 3.83 106/ul Critically low 4.70-6.10 [facility] Comment on above: Performed By: #### M G, BMP #### [facility] [address] [address] [address] Ivan Seo WBC 13.3 103/ul Critically high 4.0-11.0 [facility] Comment on above: Performed By: #### M G, BMP #### [facility] [address] [address] [address] Ivan Seo CULTURE SPUTUMon 09-11-2022 CULTURE SPUTUM Culture Observations : NORMAL RESPIRATORY SAUNDRA. Normal [facility] Comment on above: Performed By: #### H STROPN, TSH, BNP, BMP #### [facility] [address] [address] [address] Ivan Seo CULTURE URINEon 09-11-2022 CULTURE URINE Culture Observations : NO GROWTH. Normal [facility] Comment on above: Performed By: #### M G, BMP #### [facility] [address] [address] [address] Ivan Seo ECHOCARDIO M/2D COMPLETEon 0 09-11-2022 ECHOCARDIO M/2D COMPLETE Patient: SUJATA REYNA Exam Date: 09/11/2022 : 1975 Gender:M Ordering : DR JOSH HULL . Admission #: [id number] Family : Order #: [id number] CLICK HERE TO VIEW EXAM ECHOCARDIOGRAM REPORT [...] Colon M.D. on 09/11/2022 at 14:35 Normal [facility] POINT OF CARE GLUCOSEon 08-26 Glucose [Mass/Vol] 122 mg/dL Critically high 74-106 [facility] Comment on above: Performed By: #### H STROPN, TSH, BNP, BMP #### [facility] [address] [address] [address] Ivan Seo Glucose [Mass/Vol] 161 mg/dL Critically high 74-106 [facility] Comment on above: Performed By: #### M G, BMP #### [facility] [address] [address] [address] Ivan Seo Glucose [Mass/Vol] 123 mg/dL Critically high 74-106 [facility] Comment on above: Performed By: #### H STROPN, TSH, BNP, BMP #### [facility] [address] [address] [address] Ivan Seo PROF 14(COMP METB)on 023 Albumin [Mass/Vol] 3.5 g/dL Normal 3.4-5.0 [facility] Comment on above: Performed By: #### H STROPN, TSH, BNP, BMP #### [facility] [address] [address] [address] Ivan Seo Albumin/Globulin [Mass ratio] 0.9 {ratio} Normal [facility] Comment on above: Performed By: #### H STROPN, TSH, BNP, BMP #### [facility] [address] [address] [address] Ivan Seo ALP [Catalytic activity/Vol] 106 U/L Normal 46-116 [facility] Comment on above: Performed By: #### H STROPN, TSH, BNP, BMP #### [facility] [address] [address] [address] Ivan Seo ALT [Catalytic activity/Vol] 37 U/L Normal 16-63 [facility] Comment on above: Performed By: #### H STROPN, TSH, BNP, BMP #### [facility] [address] [place] [address] Dr. Ivan Seo Anion gap [Moles/Vol] 11.5 mmol/L Normal [facility] Comment on above: Performed By: #### H STROPN, TSH, BNP, BMP #### [facility] [address] [address] [address] Ivan Seo AST [Catalytic activity/Vol] 15 U/L Normal 15-37 [facility] Comment on above: Performed By: #### H STROPN, TSH, BNP, BMP #### [facility] [address] [address] [address] Ivan Seo Bilirubin [Mass/Vol] 0.5 mg/dL Normal 0.2-1.0 [facility] Comment on above: Performed By: #### H STROPN, TSH, BNP, BMP #### [facility] [address] [address] [address] Ivan Seo Calcium [Mass/Vol] 9.1 mg/dL Normal 8.5-10.1 [facility] Comment on above: Performed By: #### H STROPN, TSH, BNP, BMP #### [facility] [address] [address] [address] Ivan Seo Chloride [Moles/Vol] 104 mmol/L Normal 98-107 [facility] Comment on above: Performed By: #### H STROPN, TSH, BNP, BMP #### [facility] [address] [address] [address] Ivan Seo CO2 [Moles/Vol] 27.1 mmol/L Normal 21.0-32.0 [facility] Comment on above: Performed By: #### H STROPN, TSH, BNP, BMP #### [facility] [address] [place] [address] Dr. Ivan Seo Creatinine [Mass/Vol] 0.78 mg/dL Normal 0.70-1.30 [facility] Comment on above: Performed By: #### H STROPN, TSH, BNP, BMP #### [facility] [address] [place] [address] Dr. Ivan Seo EGFR-AF MAURITIAN >60 Normal >=60 [facility] Comment on above: Performed By: #### H STROPN, TSH, BNP, BMP #### [facility] [address] [place] [address] Dr. Ivan Seo EGFR-NON AF MAURITIAN >60 Normal >=60 [facility] Comment on above: Performed By: #### H STROPN, TSH, BNP, BMP #### [facility] [address] [place] [address] Dr. Ivan Seo Globulin (S) [Mass/Vol] 4.0 g/dL Normal [facility] Comment on above: Performed By: #### H STROPN, TSH, BNP, BMP #### [facility] [address] [place] [address] Dr. Ivan Seo Glucose [Mass/Vol] 176 mg/dL Critically high 74-106 [facility] Comment on above: Performed By: #### H STROPN, TSH, BNP, BMP #### [facility] [address] [place] [address] Dr. Ivan Seo Potassium [Moles/Vol] 3.6 mmol/L Normal 3.5-5.1 [facility] Comment on above: Performed By: #### H STROPN, TSH, BNP, BMP #### [facility] [address] [address] [address] Ivan Seo Protein [Mass/Vol] 7.5 g/dL Normal 6.4-8.2 [facility] Comment on above: Performed By: #### H STROPN, TSH, BNP, BMP #### [facility] [address] [address] [address] Ivan Seo Sodium [Moles/Vol] 139 mmol/L Normal 136-145 [facility] Comment on above: Performed By: #### H STROPN, TSH, BNP, BMP #### [facility] [address] [address] [address] Ivan Seo Urea nitrogen [Mass/Vol] 11.0 mg/dL Normal 7.0-18.0 [facility] Comment on above: Performed By: #### H STROPN, TSH, BNP, BMP #### [facility] [address] [place] [address] Dr. Ivan Seo Urea nitrogen/Creatinine [Mass ratio] 14.1 mg/mg Normal [facility] Comment on above: Performed By: #### H STROPN, TSH, BNP, BMP #### [facility] [address] [place] [address] Dr. Ivan Seo PTT HEPARIN MONITORon 2022 aPTT Coag (Bld) [Time] 47.8 s Normal 39.5-54.2 [facility] Comment on above: Performed By: #### H STROPN, TSH, BNP, BMP #### [facility] [address] [place] [address] Dr. Ivan Seo SPUTUM GRAM STAINon 09-12-19 COMMENTS Normal [facility] Comment on above: Performed By: #### H STROPN, TSH, BNP, BMP #### [facility] [address] [place] [address] Dr. Ivan Seo DIPHTHEROIDS Normal [facility] Comment on above: Performed By: #### H STROPN, TSH, BNP, BMP #### [facility] [address] [place] [address] Dr. Ivan Seo EPITHELIALS <25 Normal [facility] Comment on above: Performed By: #### H STROPN, TSH, BNP, BMP #### [facility] [address] [address] [address] Ivan Seo FUNGAL ELEMENTS Normal [facility] Comment on above: Performed By: #### H STROPN, TSH, BNP, BMP #### [facility] [address] [address] [address] Ivan Seo GRAM NEG BACILLI Normal [facility] Comment on above: Performed By: #### H STROPN, TSH, BNP, BMP #### [facility] [address] [address] [address] Ivan TIERNEY NEG DIPPLOCOCCI Normal [facility] Comment on above: Performed By: #### H STROPN, TSH, BNP, BMP #### [facility] [address] [address] [address] Ivan TIERNEY POS BACILLI Normal [facility] Comment on above: Performed By: #### H STROPN, TSH, BNP, BMP #### [facility] [address] [address] [address] Ivan Seo GRAM POSITIVE COCCI MODERATE Normal [facility] Comment on above: Performed By: #### H STROPN, TSH, BNP, BMP #### [facility] [address] [address] [address] Ivan Seo WBC (Bld) [#/Vol] 10*3/uL Normal [facility] Comment on above: Performed By: #### H STROPN, TSH, BNP, BMP #### [facility] [address] [address] [address] Ivan Seo TROPONIN, HIGH SENSITIVITYon 09-11-2022 HSTROP 9.2 pg/mL Normal 4.0-76.1 [facility] Comment on above: Result Comment: CUT- OFF POINTS HAVE BEEN ESTABLISHED BASED ON THE FOURTH UNIVERSAL DEFINITIONS OF MYOCARDIAL INFARCTION. THE UPPER REFERENCE LIMIT (URL) OF TROPONIN, DEFINED THE 99TH PERCENTILE OF cTnI DISTRIBUTION IN A REFERENCE POPULATION, HAS BEEN CONFIRMED THE DECISION THRESHOLD FOR NC DIAGNOSIS. Performed By: #### H STROPN, TSH, BNP, BMP #### [facility] [address] [place] [address] Dr. Ivan Seo UA RANDOM W/MICROSCOPICon BACTERIA NONE SEEN Normal NONE SEEN [facility] Comment on above: Performed By: #### H STROPN, TSH, BNP, BMP #### [facility] [address] [address] [address] Ivan Seo Bilirubin Ql (U) Negative Normal NEGATIVE [facility] Comment on above: Performed By: #### H STROPN, TSH, BNP, BMP #### [facility] [address] [place] [address] Dr. Ivan Seo CAST NONE SEEN Normal NONE SEEN [facility] Comment on above: Performed By: #### H STROPN, TSH, BNP, BMP #### [facility] [address] [place] [address] Dr. Ivan Seo Clarity (U) CLEAR Normal CLEAR [facility] Comment on above: Performed By: #### H STROPN, TSH, BNP, BMP #### [facility] [address] [place] [address] Dr. Ivan Seo Color (U) LT. YELLOW Normal YELLOW [facility] Comment on above: Performed By: #### H STROPN, TSH, BNP, BMP #### [facility] [address] [place] [address] Dr. Ivan Seo Crystals LM Nom (Urine sed) NONE SEEN Normal NONE SEEN [facility] Comment on above: Performed By: #### H STROPN, TSH, BNP, BMP #### [facility] [address] [place] [address] Dr. Ivan Seo Epithelial cells LM Ql (Urine sed) NONE SEEN Normal NONE SEEN /RARE [facility] Comment on above: Performed By: #### H STROPN, TSH, BNP, BMP #### [facility] [address] [place] [address] Dr. Ivan Seo Glucose Ql (U) 1000 mg/dl Abnormal NEGATIVE [facility] Comment on above: Performed By: #### H STROPN, TSH, BNP, BMP #### [facility] [address] [place] [address] Dr. Ivan Seo Hemoglobin Ql (U) Negative Normal NEGATIVE [facility] Comment on above: Performed By: #### H STROPN, TSH, BNP, BMP #### [facility] [address] [address] [address] Ivan Seo Ketones Ql (U) Negative Normal NEGATIVE [facility] Comment on above: Performed By: #### H STROPN, TSH, BNP, BMP #### [facility] [address] [address] [address] Ivan Seo LEUKOCYTES Negative Normal NEGATIVE [facility] Comment on above: Performed By: #### H STROPN, TSH, BNP, BMP #### [facility] [address] [address] [address] Ivan Seo MUCOUS NONE SEEN Normal NONE SEEN [facility] Comment on above: Performed By: #### H STROPN, TSH, BNP, BMP #### [facility] [address] [address] [address] Ivan Seo Nitrite Ql (U) Negative Normal NEGATIVE [facility] Comment on above: Performed By: #### H STROPN, TSH, BNP, BMP #### [facility] [address] [address] [address] Ivan Seo pH (U) 6.0 [pH] Normal 5-9 [facility] Comment on above: Performed By: #### H STROPN, TSH, BNP, BMP #### [facility] [address] [address] [address] Ivan Seo RBC NONE SEEN Abnormal 0-2 [facility] Comment on above: Performed By: #### H STROPN, TSH, BNP, BMP #### [facility] [address] [address] [address] Ivan Seo SPEC GRAVITY 1.020 Normal 1.005-<=1.025 [facility] Comment on above: Performed By: #### H STROPN, TSH, BNP, BMP #### [facility] [address] [address] [address] Ivan Seo UA PROTEIN Negative Normal NEGATIVE/ TRACE [facility] [facility] Comment on above: Performed By: #### H STROPN, TSH, BNP, BMP #### [facility] [address] [address] [address] Ivan Seo Urobilinogen Qn (U) 0.2 {Teto'U}/dL Normal 0.2 - 1. 0 [facility] Comment on above: Performed By: #### H STROPN, TSH, BNP, BMP #### [facility] [address] [address] [address] Ivan Seo WBC NONE SEEN Normal NONE SEEN [facility] Comment on above: Performed By: #### H STROPN, TSH, BNP, BMP #### [facility] [address] [address] [address] Ivan Seo US JORDEN DOP LEG [...] NORI MCALLISTER Date: 2022-09-11 07:52 Normal [facility] BNPon 09-10-2022 Natriuretic peptide B (Bld) [Mass/Vol] 138.0 pg/mL Normal <=450.0 [facility] Comment on above: Performed By: #### H STROPN, TSH, BNP, BMP #### [facility] [address] [address] [address] Ivan Seo CBC W MANUAL DIFFon 09-11-19 23 ATYPICAL LYMPH # Normal [facility] Comment on above: Performed By: #### H STROPN, TSH, BNP, BMP #### [facility] [address] [address] [address] Ivan Seo ATYPICAL LYMPH % Normal [facility] Comment on above: Performed By: #### H STROPN, TSH, BNP, BMP #### [facility] [address] [address] [address] Ivan Seo BAND # 0.0 103/ul Normal 0.0-0.3 [facility] Comment on above: Performed By: #### H STROPN, TSH, BNP, BMP #### [facility] [address] [place] [address] Dr. Ivan Seo BAND % 0 % Normal 0-5 [facility] Comment on above: Performed By: #### H STROPN, TSH, BNP, BMP #### [facility] [address] [place] [address] Dr. Ivan Seo BASOM # 0.00 103/ul Normal 0.00-0.10 [facility] Comment on above: Performed By: #### H STROPN, TSH, BNP, BMP #### [facility] [address] [place] [address] Dr. Ivan Seo BASOM % 0.0 % Critically low 0.2-2.0 [facility] Comment on above: Performed By: #### H STROPN, TSH, BNP, BMP #### [facility] [address] [address] [address] Ivan Seo BLAST # Normal [facility] Comment on above: Performed By: #### H STROPN, TSH, BNP, BMP #### [facility] [address] [place] [address] Dr. Ivan Seo BLAST % Normal [facility] Comment on above: Performed By: #### H STROPN, TSH, BNP, BMP #### [facility] [address] [place] [address] Dr. Ivan Seo CORRECTED WBC Normal 4.0-11.0 [facility] Comment on above: Performed By: #### H STROPN, TSH, BNP, BMP #### [facility] [address] [address] [address] Ivan Seo EOS # 0.31 103/ul Normal 0.00-0.70 [facility] Comment on above: Performed By: #### H STROPN, TSH, BNP, BMP #### [facility] [address] [address] [address] Ivan Seo EOS% 2.0 % Normal 0.9-7.0 [facility] Comment on above: Performed By: #### H STROPN, TSH, BNP, BMP #### [facility] [address] [place] [address] Dr. Ivan Seo HCT 35.0 % Critically low 42.0-54.0 [facility] Comment on above: Performed By: #### H STROPN, TSH, BNP, BMP #### [facility] [address] [place] [address] Dr. Ivan Seo HGB 11.9 g/dl Critically low 14.0-18.0 [facility] Comment on above: Performed By: #### H STROPN, TSH, BNP, BMP #### [facility] [address] [place] [address] Dr. Ivan Seo LYMPHM # 0.92 103/ul Critically low 1.20-3.80 [facility] Comment on above: Performed By: #### H STROPN, TSH, BNP, BMP #### [facility] [address] [place] [address] Dr. Ivan Seo LYMPHM% 6.0 % Critically low 20.5-60.0 [facility] Comment on above: Performed By: #### H STROPN, TSH, BNP, BMP #### [facility] [address] [place] [address] Dr. Ivan Seo MCH 30.7 pg Normal 25.9-34.0 [facility] Comment on above: Performed By: #### H STROPN, TSH, BNP, BMP #### [facility] [address] [place] [address] Dr. Ivan Seo MCHC 34.0 g/dl Normal 29.9-35.2 [facility] Comment on above: Performed By: #### H STROPN, TSH, BNP, BMP #### [facility] [address] [address] [address] Ivan Seo MCV 90.2 fL Normal 80.0-94.0 [facility] Comment on above: Performed By: #### H STROPN, TSH, BNP, BMP #### [facility] [address] [address] [address] Ivan Seo METAMYELOCYTE # Normal [facility] Comment on above: Performed By: #### H STROPN, TSH, BNP, BMP #### [facility] [address] [address] [address] Ivan Seo METAMYELOCYTE % Normal [facility] Comment on above: Performed By: #### H STROPN, TSH, BNP, BMP #### [facility] [address] [address] [address] Ivan Seo MONOM# 1.38 103/ul Critically high 0.30-0.80 [facility] Comment on above: Performed By: #### H STROPN, TSH, BNP, BMP #### [facility] [address] [place] [address] Dr. Ivan Seo MONOM% 9.0 % Normal 1.7-12.0 [facility] Comment on above: Performed By: #### H STROPN, TSH, BNP, BMP #### [facility] [address] [address] [address] Ivan Seo MPV 9.2 fL Critically low 9.5-13.5 [facility] Comment on above: Performed By: #### H STROPN, TSH, BNP, BMP #### [facility] [address] [address] [address] Ivan Seo MYELOCYTE # Normal [facility] Comment on above: Performed By: #### H STROPN, TSH, BNP, BMP #### [facility] [address] [place] [address] Dr. Ivan Seo MYELOCYTE % Normal [facility] Comment on above: Performed By: #### H STROPN, TSH, BNP, BMP #### [facility] [address] [address] [address] Ivan Seo NRBC Normal [facility] Comment on above: Performed By: #### H STROPN, TSH, BNP, BMP #### [facility] [address] [address] [address] Ivan Seo PLT 275 103/ul Normal 150-450 [facility] Comment on above: Performed By: #### H STROPN, TSH, BNP, BMP #### [facility] [address] [address] [address] Ivan Seo RBC 3.88 106/ul Critically low 4.70-6.10 [facility] Comment on above: Performed By: #### H STROPN, TSH, BNP, BMP #### [facility] [address] [place] [address] Dr. Ivan Seo RDW 12.9 % Normal 11.0-15.0 [facility] Comment on above: Performed By: #### H STROPN, TSH, BNP, BMP #### [facility] [address] [place] [address] Dr. Ivan Seo SEG # 12.70 103/ul Critically high 1.40-6.50 [facility] Comment on above: Performed By: #### H STROPN, TSH, BNP, BMP #### [facility] [address] [place] [address] Dr. Ivan Seo SEG % 83.0 % Critically high 43.0-75.0 [facility] Comment on above: Performed By: #### H STROPN, TSH, BNP, BMP #### [facility] [address] [address] [address] Ivan Seo WBC 15.3 103/ul Critically high 4.0-11.0 [facility] Comment on above: Performed By: #### H STROPN, TSH, BNP, BMP #### [facility] [address] [address] [address] Ivan Seo CTA CHEST WO W [...] JEAN ARCHIBALD Date: 2022-09-10 20:03 Normal [facility] Covid-19 PCR ([facility])on 08-26 SARS-CoV-2 (COVID-19) RNA THONG+probe Ql (Unsp spec) Not detected Normal NOT DETECTED [facility] Comment on above: Result Comment: When [...] for this test is supported by the [place] of Health and Human Service's declaration that [...] #### H STROPN, TSH, BNP, BMP #### [facility] [address] [place] [address] Dr. Ivan Seo PROF 14(COMP METB)on 023 Albumin [Mass/Vol] 3.8 g/dL Normal 3.4-5.0 [facility] Comment on above: Performed By: #### H STROPN, TSH, BNP, BMP #### [facility] [address] [address] [address] Ivan Seo Albumin/Globulin [Mass ratio] 1.0 {ratio} Normal [facility] Comment on above: Performed By: #### H STROPN, TSH, BNP, BMP #### [facility] [address] [address] [address] Ivan Seo ALP [Catalytic activity/Vol] 110 U/L Normal 46-116 [facility] Comment on above: Performed By: #### H STROPN, TSH, BNP, BMP #### [facility] [address] [address] [address] Ivan Seo ALT [Catalytic activity/Vol] 42 U/L Normal 16-63 [facility] Comment on above: Performed By: #### H STROPN, TSH, BNP, BMP #### [facility] [address] [address] [address] Ivan Seo Anion gap [Moles/Vol] 12.9 mmol/L Normal [facility] Comment on above: Performed By: #### H STROPN, TSH, BNP, BMP #### [facility] [address] [place] [address] Dr. Ivan Seo AST [Catalytic activity/Vol] 15 U/L Normal 15-37 [facility] Comment on above: Performed By: #### H STROPN, TSH, BNP, BMP #### [facility] [address] [place] [address] Dr. Ivan Seo Bilirubin [Mass/Vol] 0.8 mg/dL Normal 0.2-1.0 [facility] Comment on above: Performed By: #### H STROPN, TSH, BNP, BMP #### [facility] [address] [place] [address] Dr. Ivan Seo Calcium [Mass/Vol] 9.2 mg/dL Normal 8.5-10.1 [facility] Comment on above: Performed By: #### H STROPN, TSH, BNP, BMP #### [facility] [address] [place] [address] Dr. Ivan Seo Chloride [Moles/Vol] 103 mmol/L Normal 98-107 [facility] Comment on above: Performed By: #### H STROPN, TSH, BNP, BMP #### [facility] [address] [place] [address] Dr. Ivan Seo CO2 [Moles/Vol] 26.6 mmol/L Normal 21.0-32.0 [facility] Comment on above: Performed By: #### H STROPN, TSH, BNP, BMP #### [facility] [address] [place] [address] Dr. Ivan Seo Creatinine [Mass/Vol] 0.84 mg/dL Normal 0.70-1.30 [facility] Comment on above: Performed By: #### H STROPN, TSH, BNP, BMP #### [facility] [address] [address] [address] Ivan Seo EGFR-AF MAURITIAN >60 Normal >=60 [facility] Comment on above: Performed By: #### H STROPN, TSH, BNP, BMP #### [facility] [address] [address] [address] Ivan Seo EGFR-NON AF MAURITIAN >60 Normal >=60 [facility] Comment on above: Performed By: #### H STROPN, TSH, BNP, BMP #### [facility] [address] [address] [address] Ivan Seo Globulin (S) [Mass/Vol] 3.9 g/dL Normal [facility] Comment on above: Performed By: #### H STROPN, TSH, BNP, BMP #### [facility] [address] [address] [address] Ivan Seo Glucose [Mass/Vol] 111 mg/dL Critically high 74-106 [facility] Comment on above: Performed By: #### H STROPN, TSH, BNP, BMP #### [facility] [address] [address] [address] Ivan Seo Potassium [Moles/Vol] 3.5 mmol/L Normal 3.5-5.1 [facility] Comment on above: Performed By: #### H STROPN, TSH, BNP, BMP #### [facility] [address] [address] [address] Ivan Seo Protein [Mass/Vol] 7.7 g/dL Normal 6.4-8.2 [facility] Comment on above: Performed By: #### H STROPN, TSH, BNP, BMP #### [facility] [address] [address] [address] Ivan Seo Sodium [Moles/Vol] 139 mmol/L Normal 136-145 [facility] Comment on above: Performed By: #### H STROPN, TSH, BNP, BMP #### [facility] [address] [address] [address] Ivan Seo Urea nitrogen [Mass/Vol] 11.0 mg/dL Normal 7.0-18.0 [facility] Comment on above: Performed By: #### H STROPN, TSH, BNP, BMP #### [facility] [address] [place] [address] Dr. Ivan Seo Urea nitrogen/Creatinine [Mass ratio] 13.1 mg/mg Normal [facility] Comment on above: Performed By: #### H STROPN, TSH, BNP, BMP #### [facility] [address] [address] [address] Ivan Seo PROTIMEon 09-10-2022 INR Coag (PPP) [Relative time] 1.08 {INR} Normal [facility] Comment on above: Performed By: #### H STROPN, TSH, BNP, BMP #### [facility] [address] [place] [address] Dr. Ivan Seo INR GUIDELINES SEE BELOW Normal [facility] Comment on above: Result Comment: ROGELIO RED INR: 2.0 - 3.0 CONDITIONS NOT LISTED BELOW 2.5 - 3.5 FOR PROSTHETIC HEART VALVE REPLACEMENT 2.5 - 3.5 RECURRENT THROMBOSIS Performed By: #### H STROPN, TSH, BNP, BMP #### [facility] [address] [place] [address] Dr. Ivan Seo PT Coag (PPP) [Time] 11.4 s Normal 9.0-11.6 [facility] Comment on above: Performed By: #### H STROPN, TSH, BNP, BMP #### [facility] [address] [place] [address] Dr. Ivan Seo PTTon 09-10-2022 aPTT Coag (Bld) [Time] 29.9 s Normal 22.3-36.2 [facility] Comment on above: Performed By: #### H STROPN, TSH, BNP, BMP #### [facility] [address] [place] [address] Dr. Ivan Seo TROPONIN, HIGH SENSITIVITYon 09-10-2022 HSTROP 10.9 pg/mL Normal 4.0-76.1 [facility] Comment on above: Result Comment: CUT- OFF POINTS HAVE BEEN ESTABLISHED BASED ON THE FOURTH UNIVERSAL DEFINITIONS OF MYOCARDIAL INFARCTION. THE UPPER REFERENCE LIMIT (URL) OF TROPONIN, DEFINED THE 99TH PERCENTILE OF cTnI DISTRIBUTION IN A REFERENCE POPULATION, HAS BEEN CONFIRMED THE DECISION THRESHOLD FOR NC DIAGNOSIS. Performed By: #### H STROPN, TSH, BNP, BMP #### [facility] [address], [place] [address] Dr. Ivan Seo Covid-19 PCR ([facility])on 08-26 SARS-CoV-2 (COVID-19) RNA THONG+probe Ql (Unsp spec) Not detected Normal NOT DETECTED [facility] Comment on above: Result Comment: When diagnostic [...] for this test is supported by the [place] of Health and Human Service's declaration that [...] #### H STROPN, TSH, BNP, BMP #### [facility] [address], [place] [address] Dr. Ivan Seo NM STRESS/REST MULTIon 08-27 NM STRESS/REST MULTI Patient: SUJATA REYNA Exam Date: 08/27/2022 : 1975 Gender:M Ordering : DR JOSH HULL . Admission #: [id number] Family : Order #: [id number] CLICK HERE TO VIEW EXAM RADIOLOGY REPORT [...] anteroseptal. Basal inferoseptal. Basal inferior. Mid-inferoseptal. Mid-inferior. [place]. SIZE: Large (5 or more segments). SEVERITY: [...] MD on 08/27/2022 at 15:55 Normal [facility] CBC AUTO DIFFon 08-20-2022 BASO # 0.0 103/ul Normal 0.0-0.1 [facility] Comment on above: Performed By: #### M Noah, BMP #### [facility] [address] [address] [address] Ivan Seo Basophils/100 WBC (Bld) 0.5 % Normal 0.2-2.0 [facility] Comment on above: Performed By: #### M Noah BMP #### [facility] [address] [address] [address] Ivan Seo EO # 0.2 103/ul Normal 0.0-0.7 [facility] Comment on above: Performed By: #### Neelima Zamora BMP #### [facility] [address] [place] [address] Dr. Ivan Seo Eosinophils/100 WBC (Bld) 2.9 % Normal 0.9-7.0 [facility] Comment on above: Performed By: #### M G, BMP #### [facility] [address] [place] [address] Dr. Ivan Seo Erythrocyte distribution width (RBC) [Ratio] 13.0 % Normal 11.0-15.0 [facility] Comment on above: Performed By: #### M G, BMP #### [facility] [address] [place] [address] Dr. Ivan Seo Hematocrit (Bld) [Volume fraction] 41.4 % Critically low 42.0-54.0 [facility] Comment on above: Performed By: #### M G, BMP #### [facility] [address] [place] [address] Dr. Ivan Seo Hemoglobin (Bld) [Mass/Vol] 13.9 g/dL Critically low 14.0-18.0 [facility] Comment on above: Performed By: #### M G, BMP #### [facility] [address] [place] [address] Dr. Ivan Seo IG # 0.04 10e3/ul Critically high 0.00-0.03 [facility] Comment on above: Performed By: #### M G, BMP #### [facility] [address] [place] [address] Dr. Ivan Seo IG % 0.5 % Normal 0.0-0.5 [facility] Comment on above: Performed By: #### M G, BMP #### [facility] [address] [place] [address] Dr. Ivan Seo LYMPH # 2.2 103/ul Normal 1.2-3.8 [facility] Comment on above: Performed By: #### M G, BMP #### [facility] [address] [place] [address] Dr. Ivan Seo Lymphocytes/100 WBC (Bld) 29.2 % Normal 20.5-60.0 [facility] Comment on above: Performed By: #### M G, BMP #### [facility] [address] [place] [address] Dr. Ivan Seo MANUAL DIFF REQ NO Normal [facility] Comment on above: Performed By: #### M G, BMP #### [facility] [address] [place] [address] Dr. Ivan Seo MCH (RBC) [Entitic mass] 30.5 pg Normal 25.9-34.0 [facility] Comment on above: Performed By: #### M G, BMP #### [facility] [address] [place] [address] Dr. Ivan Seo MCHC (RBC) [Mass/Vol] 33.6 g/dL Normal 29.9-35.2 [facility] Comment on above: Performed By: #### M G, BMP #### [facility] [address] [place] [address] Dr. Ivan Seo MCV (RBC) [Entitic vol] 91.0 fL Normal 80.0-94.0 [facility] Comment on above: Performed By: #### M G, BMP #### [facility] [address] [place] [address] Dr. Ivan Seo MONO # 0.8 103/ul Normal 0.3-0.8 [facility] Comment on above: Performed By: #### M G, BMP #### [facility] [address] [place] [address] Dr. Ivan Seo Monocytes/100 WBC (Bld) 10.5 % Normal 1.7-12.0 [facility] Comment on above: Performed By: #### M G, BMP #### [facility] [address] [place] [address] Dr. Ivan Seo NEUT # 4.3 103/ul Normal 1.4-6.5 [facility] Comment on above: Performed By: #### M G, BMP #### [facility] [address] [place] [address] Dr. Ivan Seo Neutrophils/100 WBC (Bld) 56.4 % Normal 43.0-75.0 [facility] Comment on above: Performed By: #### M G, BMP #### [facility] [address] [address] [address] Ivan Seo Platelet mean volume (Bld) [Entitic vol] 9.3 fL Critically low 9.5-13.5 [facility] Comment on above: Performed By: #### M G, BMP #### [facility] [address] [address] [address] Ivan Seo PLT 264 103/ul Normal 150-450 [facility] Comment on above: Performed By: #### M G, BMP #### [facility] [address] [address] [address] Ivan Seo RBC 4.55 106/ul Critically low 4.70-6.10 [facility] Comment on above: Performed By: #### M G, BMP #### [facility] [address] [place] [address] Dr. Ivan Seo WBC 7.7 103/ul Normal 4.0-11.0 [facility] Comment on above: Performed By: #### M G, BMP #### [facility] [address] [place] [address] Dr. Ivan Seo MAGNESIUMon 08-20-2022 Magnesium [Mass/Vol] 2.0 mg/dL Normal 1.8-2.4 [facility] Comment on above: Performed By: #### M G, BMP #### [facility] [address] [place] [address] Dr. Ivan Seo PROF CHEM 8 (BAS METB)on Anion gap [Moles/Vol] 12.9 mmol/L Normal [facility] Comment on above: Performed By: #### M G, BMP #### [facility] [address] [place] [address] Dr. Ivan Seo Calcium [Mass/Vol] 9.0 mg/dL Normal 8.5-10.1 [facility] Comment on above: Performed By: #### M G, BMP #### [facility] [address] [place] [address] Dr. Ivan Seo Chloride [Moles/Vol] 104 mmol/L Normal 98-107 [facility] Comment on above: Performed By: #### M G, BMP #### [facility] [address] [place] [address] Dr. Ivan Seo CO2 [Moles/Vol] 24.9 mmol/L Normal 21.0-32.0 [facility] Comment on above: Performed By: #### M G, BMP #### [facility] [address] [address] [address] Ivan Seo Creatinine [Mass/Vol] 0.82 mg/dL Normal 0.70-1.30 [facility] Comment on above: Performed By: #### M G, BMP #### [facility] [address] [place] [address] Dr. Ivan Seo EGFR-AF MAURITIAN >60 Normal >=60 [facility] Comment on above: Performed By: #### Neelima G, BMP #### [facility] [address] [place] [address] Dr. Ivan Seo EGFR-NON AF MAURITIAN >60 Normal >=60 [facility] Comment on above: Performed By: #### M G, BMP #### [facility] [address] [place] [address] Dr. Ivan Seo Glucose [Mass/Vol] 94 mg/dL Normal 74-106 [facility] Comment on above: Performed By: #### Neelima G, BMP #### [facility] [address] [place] [address] Dr. Ivan Seo Potassium [Moles/Vol] 3.8 mmol/L Normal 3.5-5.1 [facility] Comment on above: Performed By: #### M G, BMP #### [facility] [address] [place] [address] Dr. Ivan Seo Sodium [Moles/Vol] 138 mmol/L Normal 136-145 [facility] Comment on above: Performed By: #### M G, BMP #### [facility] [address] [place] [address] Dr. Ivan Seo Urea nitrogen [Mass/Vol] 11.0 mg/dL Normal 7.0-18.0 [facility] Comment on above: Performed By: #### M G, BMP #### [facility] [address] [place] [address] Dr. Ivan Seo Urea nitrogen/Creatinine [Mass ratio] 13.4 mg/mg Normal [facility] Comment on above: Performed By: #### M G, BMP #### [facility] [address] [place] [address] Dr. Ivan Seo TROPONIN, HIGH SENSITIVITYon 08-20-2022 HSTROP 8.3 pg/mL Normal 4.0-76.1 [facility] Comment on above: Result Comment: CUT- OFF POINTS HAVE BEEN ESTABLISHED BASED ON THE FOURTH UNIVERSAL DEFINITIONS OF MYOCARDIAL INFARCTION. THE UPPER REFERENCE LIMIT (URL) OF TROPONIN, DEFINED THE 99TH PERCENTILE OF cTnI DISTRIBUTION IN A REFERENCE POPULATION, HAS BEEN CONFIRMED THE DECISION THRESHOLD FOR NC DIAGNOSIS. Performed By: #### H STROPN, TSH, BNP, BMP #### [facility] [address] [place] [address] Dr. Ivan Seo CARDIAC EDWARDO 3-6on 3 CK [Catalytic activity/Vol] 110 U/L Normal 39-308 [facility] Comment on above: Performed By: #### H STROPN, TSH, BNP, BMP #### [facility] [address] [place] [address] Dr. Ivan Seo CK.MB [Mass/Vol] 0.77 ng/mL Normal <=3.60 [facility] Comment on above: Performed By: #### H STROPN, TSH, BNP, BMP #### [facility] [address] [place] [address] Dr. Ivan Seo HSTROP 6.1 pg/mL Normal 4.0-76.1 [facility] Comment on above: Result Comment: CUT- OFF POINTS HAVE BEEN ESTABLISHED BASED ON THE FOURTH UNIVERSAL DEFINITIONS OF MYOCARDIAL INFARCTION. THE UPPER REFERENCE LIMIT (URL) OF TROPONIN, DEFINED THE 99TH PERCENTILE OF cTnI DISTRIBUTION IN A REFERENCE POPULATION, HAS BEEN CONFIRMED THE DECISION THRESHOLD FOR NC DIAGNOSIS. Performed By: #### H STROPN, TSH, BNP, BMP #### [facility] [address] [address] [address] Ivan Seo CK [Catalytic activity/Vol] 113 U/L Normal 39-308 [facility] Comment on above: Performed By: #### H STROPN, TSH, BNP, BMP #### [facility] [address] [address] [address] Ivan Seo CK.MB [Mass/Vol] 0.62 ng/mL Normal <=3.60 [facility] Comment on above: Performed By: #### H STROPN, TSH, BNP, BMP #### [facility] [address] [place] [address] Dr. Ivan Seo HSTROP 7.4 pg/mL Normal 4.0-76.1 [facility] Comment on above: Result Comment: CUT- OFF POINTS HAVE BEEN ESTABLISHED BASED ON THE FOURTH UNIVERSAL DEFINITIONS OF MYOCARDIAL INFARCTION. THE UPPER REFERENCE LIMIT (URL) OF TROPONIN, DEFINED THE 99TH PERCENTILE OF cTnI DISTRIBUTION IN A REFERENCE POPULATION, HAS BEEN CONFIRMED THE DECISION THRESHOLD FOR NC DIAGNOSIS. Performed By: #### H STROPN, TSH, BNP, BMP #### [facility] [address] [place] [address] Dr. Ivan Seo CBC AUTO DIFFon 08-19-2022 BASO # 0.0 103/ul Normal 0.0-0.1 [facility] Comment on above: Performed By: #### H STROPN, TSH, BNP, BMP #### [facility] [address] [place] [address] Dr. Ivan Seo Basophils/100 WBC (Bld) 0.5 % Normal 0.2-2.0 [facility] Comment on above: Performed By: #### H STROPN, TSH, BNP, BMP #### [facility] [address] [place] [address] Dr. Ivan Seo EO # 0.2 103/ul Normal 0.0-0.7 [facility] Comment on above: Performed By: #### H STROPN, TSH, BNP, BMP #### [facility] [address] [place] [address] Dr. Ivan Seo Eosinophils/100 WBC (Bld) 2.9 % Normal 0.9-7.0 [facility] Comment on above: Performed By: #### H STROPN, TSH, BNP, BMP #### [facility] [address] [address] [address] Ivan Seo Erythrocyte distribution width (RBC) [Ratio] 12.7 % Normal 11.0-15.0 [facility] Comment on above: Performed By: #### H STROPN, TSH, BNP, BMP #### [facility] [address] [address] [address] Ivan Seo Hematocrit (Bld) [Volume fraction] 40.2 % Critically low 42.0-54.0 [facility] Comment on above: Performed By: #### H STROPN, TSH, BNP, BMP #### [facility] [address] [address] [address] Ivan Seo Hemoglobin (Bld) [Mass/Vol] 13.6 g/dL Critically low 14.0-18.0 [facility] Comment on above: Performed By: #### H STROPN, TSH, BNP, BMP #### [facility] [address] [address] [address] Ivan Seo IG # 0.06 10e3/ul Critically high 0.00-0.03 [facility] Comment on above: Performed By: #### H STROPN, TSH, BNP, BMP #### [facility] [address] [place] [address] Dr. Ivan Seo IG % 0.8 % Critically high 0.0-0.5 [facility] Comment on above: Performed By: #### H STROPN, TSH, BNP, BMP #### [facility] [address] [address] [address] Ivan Seo LYMPH # 2.0 103/ul Normal 1.2-3.8 [facility] Comment on above: Performed By: #### H STROPN, TSH, BNP, BMP #### [facility] [address] [address] [address] Ivan Seo Lymphocytes/100 WBC (Bld) 26.9 % Normal 20.5-60.0 [facility] Comment on above: Performed By: #### H STROPN, TSH, BNP, BMP #### [facility] [address] [address] [address] Ivan Seo MANUAL DIFF REQ NO Normal [facility] Comment on above: Performed By: #### H STROPN, TSH, BNP, BMP #### [facility] [address] [place] [address] Dr. Ivan Seo MCH (RBC) [Entitic mass] 30.4 pg Normal 25.9-34.0 [facility] Comment on above: Performed By: #### H STROPN, TSH, BNP, BMP #### [facility] [address] [place] [address] Dr. Ivan Seo MCHC (RBC) [Mass/Vol] 33.8 g/dL Normal 29.9-35.2 [facility] Comment on above: Performed By: #### H STROPN, TSH, BNP, BMP #### [facility] [address] [place] [address] Dr. Ivan Seo MCV (RBC) [Entitic vol] 89.9 fL Normal 80.0-94.0 [facility] Comment on above: Performed By: #### H STROPN, TSH, BNP, BMP #### [facility] [address] [place] [address] Dr. Ivan Seo MONO # 0.8 103/ul Normal 0.3-0.8 [facility] Comment on above: Performed By: #### H STROPN, TSH, BNP, BMP #### [facility] [address] [place] [address] Dr. Ivan Seo Monocytes/100 WBC (Bld) 9.9 % Normal 1.7-12.0 [facility] Comment on above: Performed By: #### H STROPN, TSH, BNP, BMP #### [facility] [address] [place] [address] Dr. Ivan Seo NEUT # 4.5 103/ul Normal 1.4-6.5 [facility] Comment on above: Performed By: #### H STROPN, TSH, BNP, BMP #### [facility] [address] [address] [address] Ivan Seo Neutrophils/100 WBC (Bld) 59.0 % Normal 43.0-75.0 [facility] Comment on above: Performed By: #### H STROPN, TSH, BNP, BMP #### [facility] [address] [address] [address] Ivan Seo Platelet mean volume (Bld) [Entitic vol] 9.1 fL Critically low 9.5-13.5 [facility] Comment on above: Performed By: #### H STROPN, TSH, BNP, BMP #### [facility] [address] [address] [address] Ivan Seo PLT 245 103/ul Normal 150-450 [facility] Comment on above: Performed By: #### H STROPN, TSH, BNP, BMP #### [facility] [address] [address] [address] Ivan Seo RBC 4.47 106/ul Critically low 4.70-6.10 [facility] Comment on above: Performed By: #### H STROPN, TSH, BNP, BMP #### [facility] [address] [address] [address] Ivan Seo WBC 7.6 103/ul Normal 4.0-11.0 [facility] Comment on above: Performed By: #### H STROPN, TSH, BNP, BMP #### [facility] [address] [address] [address] Ivan Seo DRUG SCREEN RAPID (URINE)on 08-19-2022 AMP Negative Normal NEGATIVE [facility] Comment on above: Performed By: #### H STROPN, TSH, BNP, BMP #### [facility] [address] [address] [address] Ivan Seo BAR Negative Normal NEGATIVE [facility] Comment on above: Performed By: #### H STROPN, TSH, BNP, BMP #### [facility] [address] [place] [address] Dr. Ivan Seo BUP Negative Normal NEGATIVE [facility] Comment on above: Performed By: #### H STROPN, TSH, BNP, BMP #### [facility] [address] [address] [address] Ivan Seo BZO Negative Normal NEGATIVE [facility] Comment on above: Performed By: #### H STROPN, TSH, BNP, BMP #### [facility] [address] [address] [address] Ivan Seo VONNIE Negative Normal NEGATIVE [facility] Comment on above: Performed By: #### H STROPN, TSH, BNP, BMP #### [facility] [address] [address] [address] Ivan Seo CUT-OFFS SEE BELOW Normal [facility] Comment on above: Result Comment: AMP [...] #### H STROPN, TSH, BNP, BMP #### [facility] [address] [place] [address] Dr. Ivan Seo DRUG CUT HEADER DRUG CLASS TEST SYSTEM CUT-OFF CONCENTRATIONS ARE FOLLOWS: Normal [facility] Comment on above: Performed By: #### H STROPN, TSH, BNP, BMP #### [facility] [address] [place] [address] Dr. Ivan Seo mAMP Negative Normal NEGATIVE [facility] Comment on above: Performed By: #### H STROPN, TSH, BNP, BMP #### [facility] [address] [address] [address] Ivan Seo MTD Negative Normal NEGATIVE [facility] Comment on above: Performed By: #### H STROPN, TSH, BNP, BMP #### [facility] [address] [address] [address] Ivan Seo OPI Negative Normal NEGATIVE [facility] Comment on above: Performed By: #### H STROPN, TSH, BNP, BMP #### [facility] [address] [address] [address] Ivan Seo OXY Negative Normal NEGATIVE [facility] Comment on above: Performed By: #### H STROPN, TSH, BNP, BMP #### [facility] [address] [address] [address] Ivan Seo PCP Negative Normal NEGATIVE [facility] Comment on above: Performed By: #### H STROPN, TSH, BNP, BMP #### [facility] [address] [address] [address] Ivan Seo PPX Negative Normal NEGATIVE [facility] Comment on above: Performed By: #### H STROPN, TSH, BNP, BMP #### [facility] [address] [address] [address] Ivan Seo TCA Negative Normal NEGATIVE [facility] Comment on above: Performed By: #### H STROPN, TSH, BNP, BMP #### [facility] [address] [address] [address] Ivan Seo THC Negative Normal NEGATIVE [facility] Comment on above: Performed By: #### H STROPN, TSH, BNP, BMP #### [facility] [address] [address] [address] Ivan Seo ECHOCARDIO M/2D COMPLETEon 0 08-19-2022 ECHOCARDIO M/2D COMPLETE Patient: SUJATA REYNA Exam Date: 08/19/2022 : 1975 Gender:M Ordering : DR JOSH HULL . Admission #: [id number] Family : Order #: [id number] CLICK HERE TO VIEW EXAM ECHOCARDIOGRAM REPORT [...] Colon M.D. on 08/19/2022 at 12:34 Normal [facility] LIPID PROFILEon 08-19-2022 CHOL-HDL RATIO NORM SEE BELOW Normal [facility] Comment on above: Result Comment: 3.3 - 4.4 LOW RISK 4.4 - 7.1 AVERAGE RISK 7.1 - 11.0 MODERATE RISK >11.0 HIGH RISK Performed By: #### H STROPN, TSH, BNP, BMP #### [facility] [address] [address] [address] Ivan Seo Cholesterol [Mass/Vol] 213 mg/dL Critically high <=200 [facility] Comment on above: Performed By: #### H STROPN, TSH, BNP, BMP #### [facility] [address] [address] [address] Ivan Seo Cholesterol in HDL [Mass/Vol] 40 mg/dL Normal 40-60 [facility] Comment on above: Performed By: #### H STROPN, TSH, BNP, BMP #### [facility] [address] [address] [address] Ivan Seo Cholesterol in LDL [Mass/Vol] 147.0 mg/dL Normal [facility] Comment on above: Performed By: #### H STROPN, TSH, BNP, BMP #### [facility] [address] [address] [address] Ivan Seo Cholesterol.total/Cho lesterol in HDL [Mass ratio] 5.3 {ratio} Normal [facility] Comment on above: Performed By: #### H STROPN, TSH, BNP, BMP #### [facility] [address] [address] [address] Ivan Seo HDL NORMAL > or = 60 mg/dl - LO W CARDIOVASCULAR RISK <40 mg/dl - HIGH CARDIOVASCULAR RISK Normal [facility] Comment on above: Performed By: #### H STROPN, TSH, BNP, BMP #### [facility] [address] [address] [address] Ivan Seo LDL CALC NORMAL SEE BELOW Normal [facility] Comment on above: Result Comment: <100 mg/dl OPTIMAL 100 - 129 mg/dl NEAR OR ABOVE OPTIMAL 130 - 159 mg/dl BORDERLINE HIGH 160 - 189 mg/dl HIGH >190 mg/dl VERY HIGH Performed By: #### H STROPN, TSH, BNP, BMP #### [facility] [address] [address] [address] Ivan Seo Triglyceride [Mass/Vol] 130 mg/dL Normal <=150 [facility] Comment on above: Performed By: #### H STROPN, TSH, BNP, BMP #### [facility] [address] [address] [address] Ivan Seo VLDL CALC 26.0 mg/dL Normal [facility] Comment on above: Performed By: #### H STROPN, TSH, BNP, BMP #### [facility] [address] [address] [address] Ivan Seo MAGNESIUMon 08-19-2022 Magnesium [Mass/Vol] 2.0 mg/dL Normal 1.8-2.4 [facility] Comment on above: Performed By: #### H STROPN, TSH, BNP, BMP #### [facility] [address] [address] [address] Ivan Seo PROF CHEM 8 (BAS METB)on Anion gap [Moles/Vol] 12.5 mmol/L Normal [facility] Comment on above: Performed By: #### H STROPN, TSH, BNP, BMP #### [facility] [address] [place] [address] Dr. Ivan Seo Calcium [Mass/Vol] 8.8 mg/dL Normal 8.5-10.1 [facility] Comment on above: Performed By: #### H STROPN, TSH, BNP, BMP #### [facility] [address] [place] [address] Dr. Ivan Seo Chloride [Moles/Vol] 104 mmol/L Normal 98-107 [facility] Comment on above: Performed By: #### H STROPN, TSH, BNP, BMP #### [facility] [address] [place] [address] Dr. Ivan Seo CO2 [Moles/Vol] 26.4 mmol/L Normal 21.0-32.0 [facility] Comment on above: Performed By: #### H STROPN, TSH, BNP, BMP #### [facility] [address] [place] [address] Dr. Ivan Seo Creatinine [Mass/Vol] 0.89 mg/dL Normal 0.70-1.30 [facility] Comment on above: Performed By: #### H STROPN, TSH, BNP, BMP #### [facility] [address] [place] [address] Dr. Ivan Seo EGFR-AF MAURITIAN >60 Normal >=60 [facility] Comment on above: Performed By: #### H STROPN, TSH, BNP, BMP #### [facility] [address] [place] [address] Dr. Ivan Seo EGFR-NON AF MAURITIAN >60 Normal >=60 [facility] Comment on above: Performed By: #### H STROPN, TSH, BNP, BMP #### [facility] [address] [address] [address] Ivan Seo Glucose [Mass/Vol] 103 mg/dL Normal 74-106 [facility] Comment on above: Performed By: #### H STROPN, TSH, BNP, BMP #### [facility] [address] [place] [address] Dr. Ivan Seo Potassium [Moles/Vol] 3.9 mmol/L Normal 3.5-5.1 [facility] Comment on above: Performed By: #### H STROPN, TSH, BNP, BMP #### [facility] [address] [place] [address] Dr. Ivan Seo Sodium [Moles/Vol] 139 mmol/L Normal 136-145 [facility] Comment on above: Performed By: #### H STROPN, TSH, BNP, BMP #### [facility] [address] [place] [address] Dr. Ivan Seo Urea nitrogen [Mass/Vol] 12.0 mg/dL Normal 7.0-18.0 [facility] Comment on above: Performed By: #### H STROPN, TSH, BNP, BMP #### [facility] [address] [place] [address] Dr. Ivan Seo Urea nitrogen/Creatinine [Mass ratio] 13.5 mg/mg Normal [facility] Comment on above: Performed By: #### H STROPN, TSH, BNP, BMP #### [facility] [address] [place] [address] Dr. Ivan Seo BNPon 08-18-2022 Natriuretic peptide B (Bld) [Mass/Vol] 77.0 pg/mL Normal <=450.0 [facility] Comment on above: Performed By: #### H STROPN, TSH, BNP, BMP #### [facility] [address] [place] [address] Dr. Ivan Seo CBC AUTO DIFFon 08-18-2022 BASO # 0.0 103/ul Normal 0.0-0.1 [facility] Comment on above: Performed By: #### H STROPN, TSH, BNP, BMP #### [facility] [address] [place] [address] Dr. Ivan Seo Basophils/100 WBC (Bld) 0.4 % Normal 0.2-2.0 [facility] Comment on above: Performed By: #### H STROPN, TSH, BNP, BMP #### [facility] [address] [place] [address] Dr. Ivan Seo EO # 0.2 103/ul Normal 0.0-0.7 [facility] Comment on above: Performed By: #### H STROPN, TSH, BNP, BMP #### [facility] [address] [place] [address] Dr. Ivan Seo Eosinophils/100 WBC (Bld) 2.7 % Normal 0.9-7.0 [facility] Comment on above: Performed By: #### H STROPN, TSH, BNP, BMP #### [facility] [address] [place] [address] Dr. Ivan Seo Erythrocyte distribution width (RBC) [Ratio] 12.7 % Normal 11.0-15.0 [facility] Comment on above: Performed By: #### H STROPN, TSH, BNP, BMP #### [facility] [address] [place] [address] Dr. Ivan Seo Hematocrit (Bld) [Volume fraction] 39.8 % Critically low 42.0-54.0 [facility] Comment on above: Performed By: #### H STROPN, TSH, BNP, BMP #### [facility] [address] [place] [address] Dr. Ivan Seo Hemoglobin (Bld) [Mass/Vol] 13.9 g/dL Critically low 14.0-18.0 [facility] Comment on above: Performed By: #### H STROPN, TSH, BNP, BMP #### [facility] [address] [place] [address] Dr. Ivan Seo IG # 0.04 10e3/ul Critically high 0.00-0.03 [facility] Comment on above: Performed By: #### H STROPN, TSH, BNP, BMP #### [facility] [address] [place] [address] Dr. Ivan Seo IG % 0.5 % Normal 0.0-0.5 [facility] Comment on above: Performed By: #### H STROPN, TSH, BNP, BMP #### [facility] [address] [place] [address] Dr. Ivan Seo LYMPH # 2.4 103/ul Normal 1.2-3.8 [facility] Comment on above: Performed By: #### H STROPN, TSH, BNP, BMP #### [facility] [address] [place] [address] Dr. Ivan Seo Lymphocytes/100 WBC (Bld) 29.4 % Normal 20.5-60.0 [facility] Comment on above: Performed By: #### H STROPN, TSH, BNP, BMP #### [facility] [address] [place] [address] Dr. Ivan Seo MANUAL DIFF REQ NO Normal [facility] Comment on above: Performed By: #### H STROPN, TSH, BNP, BMP #### [facility] [address] [place] [address] Dr. Ivan Seo MCH (RBC) [Entitic mass] 31.1 pg Normal 25.9-34.0 [facility] Comment on above: Performed By: #### H STROPN, TSH, BNP, BMP #### [facility] [address] [place] [address] Dr. Ivan Seo MCHC (RBC) [Mass/Vol] 34.9 g/dL Normal 29.9-35.2 [facility] Comment on above: Performed By: #### H STROPN, TSH, BNP, BMP #### [facility] [address] [place] [address] Dr. Ivan Seo MCV (RBC) [Entitic vol] 89.0 fL Normal 80.0-94.0 [facility] Comment on above: Performed By: #### H STROPN, TSH, BNP, BMP #### [facility] [address] [place] [address] Dr. Ivan Seo MONO # 0.8 103/ul Normal 0.3-0.8 [facility] Comment on above: Performed By: #### H STROPN, TSH, BNP, BMP #### [facility] [address] [place] [address] Dr. Ivan Seo Monocytes/100 WBC (Bld) 9.4 % Normal 1.7-12.0 [facility] Comment on above: Performed By: #### H STROPN, TSH, BNP, BMP #### [facility] [address] [address] [address] Ivan Seo NEUT # 4.8 103/ul Normal 1.4-6.5 [facility] Comment on above: Performed By: #### H STROPN, TSH, BNP, BMP #### [facility] [address] [address] [address] Ivan Seo Neutrophils/100 WBC (Bld) 57.6 % Normal 43.0-75.0 [facility] Comment on above: Performed By: #### H STROPN, TSH, BNP, BMP #### [facility] [address] [place] [address] Dr. Ivan Seo Platelet mean volume (Bld) [Entitic vol] 9.2 fL Critically low 9.5-13.5 [facility] Comment on above: Performed By: #### H STROPN, TSH, BNP, BMP #### [facility] [address] [place] [address] Dr. Ivan Seo PLT 262 103/ul Normal 150-450 [facility] Comment on above: Performed By: #### H STROPN, TSH, BNP, BMP #### [facility] [address] [place] [address] Dr. Ivan Seo RBC 4.47 106/ul Critically low 4.70-6.10 [facility] Comment on above: Performed By: #### H STROPN, TSH, BNP, BMP #### [facility] [address] [place] [address] Dr. Ivan Seo WBC 8.3 103/ul Normal 4.0-11.0 [facility] Comment on above: Performed By: #### H STROPN, TSH, BNP, BMP #### [facility] [address] [address] [address] Ivan Seo Covid-19 PCR ([facility])on 07-30 SARS-CoV-2 (COVID-19) RNA THONG+probe Ql (Unsp spec) Not detected Normal NOT DETECTED [facility] Comment on above: Result Comment: When diagnostic [...] for this test is supported by the Er[employer] Analyst of Health and Human Service's declaration that [...] #### H STROPN, TSH, BNP, BMP #### [facility] [address] [place] [address] Dr. Ivan Seo FREE T3on 08-18-2022 FREE T3 3.10 pg/mlL Normal 2.18-3.98 [facility] Comment on above: Performed By: #### M Noah, BMP #### [facility] [address] [place] [address] Dr. Ivan Seo FREE T4on 08-18-2022 Free T4 [Mass/Vol] 0.90 ng/dL Normal 0.76-1.46 [facility] Comment on above: Performed By: #### M Noah, BMP #### [facility] [address] [place] [address] Dr. Ivan Seo PROF CHEM 8 (BAS METB)on Anion gap [Moles/Vol] 10.4 mmol/L Normal [facility] Comment on above: Performed By: #### H STROPN, TSH, BNP, BMP #### [facility] [address] [place] [address] Dr. Ivan Seo Calcium [Mass/Vol] 9.1 mg/dL Normal 8.5-10.1 [facility] Comment on above: Performed By: #### H STROPN, TSH, BNP, BMP #### [facility] [address] [place] [address] Dr. Ivan Seo Chloride [Moles/Vol] 101 mmol/L Normal 98-107 [facility] Comment on above: Performed By: #### H STROPN, TSH, BNP, BMP #### [facility] [address] [place] [address] Dr. Ivan Seo CO2 [Moles/Vol] 30.1 mmol/L Normal 21.0-32.0 [facility] Comment on above: Performed By: #### H STROPN, TSH, BNP, BMP #### [facility] [address] [place] [address] Dr. Ivan Seo Creatinine [Mass/Vol] 0.97 mg/dL Normal 0.70-1.30 [facility] Comment on above: Performed By: #### H STROPN, TSH, BNP, BMP #### [facility] [address] [place] [address] Dr. Ivan Seo EGFR-AF MAURITIAN >60 Normal >=60 [facility] Comment on above: Performed By: #### H STROPN, TSH, BNP, BMP #### [facility] [address] [place] [address] Dr. Ivan Seo EGFR-NON AF MAURITIAN >60 Normal >=60 [facility] [facility] Comment on above: Performed By: #### H STROPN, TSH, BNP, BMP #### [facility] [address] [place] [address] Dr. Ivan Seo Glucose [Mass/Vol] 109 mg/dL Critically high 74-106 [facility] Comment on above: Performed By: #### H STROPN, TSH, BNP, BMP #### [facility] [address] [place] [address] Dr. Ivan Seo Potassium [Moles/Vol] 3.5 mmol/L Normal 3.5-5.1 [facility] Comment on above: Performed By: #### H STROPN, TSH, BNP, BMP #### [facility] [address] [address] [address] Ivan Seo Sodium [Moles/Vol] 138 mmol/L Normal 136-145 [facility] Comment on above: Performed By: #### H STROPN, TSH, BNP, BMP #### [facility] [address] [place] [address] Dr. Ivan Seo Urea nitrogen [Mass/Vol] 17.0 mg/dL Normal 7.0-18.0 [facility] Comment on above: Performed By: #### H STROPN, TSH, BNP, BMP #### [facility] [address] [address] [address] Ivan Seo Urea nitrogen/Creatinine [Mass ratio] 17.5 mg/mg Normal [facility] Comment on above: Performed By: #### H STROPN, TSH, BNP, BMP #### [facility] [address] [place] [address] Dr. Ivan Seo TROPONIN, HIGH SENSITIVITYon 08-18-2022 HSTROP 5.7 pg/mL Normal 4.0-76.1 [facility] Comment on above: Result Comment: CUT- OFF POINTS HAVE BEEN ESTABLISHED BASED ON THE FOURTH UNIVERSAL DEFINITIONS OF MYOCARDIAL INFARCTION. THE UPPER REFERENCE LIMIT (URL) OF TROPONIN, DEFINED THE 99TH PERCENTILE OF cTnI DISTRIBUTION IN A REFERENCE POPULATION, HAS BEEN CONFIRMED THE DECISION THRESHOLD FOR NC DIAGNOSIS. Performed By: #### H STROPN, TSH, BNP, BMP #### [facility] [address] [place] [address] Dr. Ivan Seo HSTROP 6.8 pg/mL Normal 4.0-76.1 [facility] Comment on above: Result Comment: CUT- OFF POINTS HAVE BEEN ESTABLISHED BASED ON THE FOURTH UNIVERSAL DEFINITIONS OF MYOCARDIAL INFARCTION. THE UPPER REFERENCE LIMIT (URL) OF TROPONIN, DEFINED THE 99TH PERCENTILE OF cTnI DISTRIBUTION IN A REFERENCE POPULATION, HAS BEEN CONFIRMED THE DECISION THRESHOLD FOR NC DIAGNOSIS. Performed By: #### H STROPN, TSH, BNP, BMP #### [facility] [address] [place] [address] Dr. Ivan Seo TSHon 08-18-2022 TSH 3.636 uIU/mL Normal 0.358-3.[address] [facility] Comment on above: Performed By: #### H STROPN, TSH, BNP, BMP #### [facility] [address] [address] [address] Ivan Seo XR CHEST 1 Von [...] ELENA KNIGHT Date: 2022-08-18 20:09 Normal [facility] CBC AUTO DIFFon 06-05-2022 BASO # 0.0 103/ul Normal 0.0-0.1 [facility] Comment on above: Performed By: #### H STROPN, TSH, BNP, BMP #### [facility] [address] [address] [address] Ivan Seo Basophils/100 WBC (Bld) 0.5 % Normal 0.2-2.0 [facility] Comment on above: Performed By: #### H STROPN, TSH, BNP, BMP #### [facility] [address] [address] [address] Ivan Seo EO # 0.2 103/ul Normal 0.0-0.7 [facility] Comment on above: Performed By: #### H STROPN, TSH, BNP, BMP #### [facility] [address] [address] [address] Ivan Seo Eosinophils/100 WBC (Bld) 2.1 % Normal 0.9-7.0 [facility] Comment on above: Performed By: #### H STROPN, TSH, BNP, BMP #### [facility] [address] [address] [address] Ivan Seo Erythrocyte distribution width (RBC) [Ratio] 13.1 % Normal 11.0-15.0 [facility] Comment on above: Performed By: #### H STROPN, TSH, BNP, BMP #### [facility] [address] [address] [address] Ivan Seo Hematocrit (Bld) [Volume fraction] 41.7 % Critically low 42.0-54.0 [facility] Comment on above: Performed By: #### H STROPN, TSH, BNP, BMP #### [facility] [address] [place] [address] Dr. Ivan Seo Hemoglobin (Bld) [Mass/Vol] 14.2 g/dL Normal 14.0-18.0 [facility] Comment on above: Performed By: #### H STROPN, TSH, BNP, BMP #### [facility] [address] [place] [address] Dr. Ivan Seo IG # 0.06 10e3/ul Critically high 0.00-0.03 [facility] Comment on above: Performed By: #### H STROPN, TSH, BNP, BMP #### [facility] [address] [place] [address] Dr. Ivan Seo IG % 0.8 % Critically high 0.0-0.5 [facility] Comment on above: Performed By: #### H STROPN, TSH, BNP, BMP #### [facility] [address] [place] [address] Dr. Ivan Seo LYMPH # 1.8 103/ul Normal 1.2-3.8 [facility] Comment on above: Performed By: #### H STROPN, TSH, BNP, BMP #### [facility] [address] [place] [address] Dr. Ivan Seo Lymphocytes/100 WBC (Bld) 23.4 % Normal 20.5-60.0 [facility] Comment on above: Performed By: #### H STROPN, TSH, BNP, BMP #### [facility] [address] [place] [address] Dr. Ivan Seo MANUAL DIFF REQ NO Normal [facility] Comment on above: Performed By: #### H STROPN, TSH, BNP, BMP #### [facility] [address] [place] [address] Dr. Ivan Seo MCH (RBC) [Entitic mass] 30.8 pg Normal 25.9-34.0 [facility] Comment on above: Performed By: #### H STROPN, TSH, BNP, BMP #### [facility] [address] [place] [address] Dr. Ivan Seo MCHC (RBC) [Mass/Vol] 34.1 g/dL Normal 29.9-35.2 [facility] Comment on above: Performed By: #### H STROPN, TSH, BNP, BMP #### [facility] [address] [place] [address] Dr. Ivan Seo MCV (RBC) [Entitic vol] 90.5 fL Normal 80.0-94.0 [facility] Comment on above: Performed By: #### H STROPN, TSH, BNP, BMP #### [facility] [address] [place] [address] Dr. Ivan Seo MONO # 1.1 103/ul Critically high 0.3-0.8 [facility] Comment on above: Performed By: #### H STROPN, TSH, BNP, BMP #### [facility] [address] [place] [address] Dr. Ivan Seo Monocytes/100 WBC (Bld) 14.2 % Critically high 1.7-12.0 [facility] Comment on above: Performed By: #### H STROPN, TSH, BNP, BMP #### [facility] [address] [place] [address] Dr. Ivan Seo NEUT # 4.4 103/ul Normal 1.4-6.5 [facility] Comment on above: Performed By: #### H STROPN, TSH, BNP, BMP #### [facility] [address] [place] [address] Dr. Ivan Seo Neutrophils/100 WBC (Bld) 59.0 % Normal 43.0-75.0 [facility] Comment on above: Performed By: #### H STROPN, TSH, BNP, BMP #### [facility] [address] [place] [address] Dr. Ivan Seo Platelet mean volume (Bld) [Entitic vol] 9.2 fL Critically low 9.5-13.5 [facility] Comment on above: Performed By: #### H STROPN, TSH, BNP, BMP #### [facility] [address] [address] [address] Ivan Seo PLT 277 103/ul Normal 150-450 [facility] Comment on above: Performed By: #### H STROPN, TSH, BNP, BMP #### [facility] [address] [address] [address] Ivan Seo RBC 4.61 106/ul Critically low 4.70-6.10 [facility] Comment on above: Performed By: #### H STROPN, TSH, BNP, BMP #### [facility] [address] [address] [address] Ivan Seo WBC 7.5 103/ul Normal 4.0-11.0 [facility] Comment on above: Performed By: #### H STROPN, TSH, BNP, BMP #### [facility] [address] [address] [address] Ivan Seo FREE T3on 06-05-2022 FREE T3 3.34 pg/mlL Normal 2.18-3.98 [facility] Comment on above: Performed By: #### M G, BMP #### [facility] [address] [address] [address] Ivan Seo GLYCOHEMOGLOBIN A1Con 2021 ADA RECOMMENDATION SEE BELOW Normal [facility] Comment on above: Result Comment: ADA RECOMMENDED LIMIT 4.0 - 6.0 ADA THERAPEUTIC TARGET < 7.0 ACTION SUGGESTED > 7.0 Performed By: #### H STROPN, TSH, BNP, BMP #### [facility] [address] [address] [address] Ivan Seo Glucose [Mass/Vol] 114 mg/dL Normal [facility] Comment on above: Performed By: #### H STROPN, TSH, BNP, BMP #### [facility] [address] [address] [address] Ivan Seo HbA1c (Bld) [Mass fraction] 5.6 % Normal 4.5-6.2 [facility] Comment on above: Performed By: #### H STROPN, TSH, BNP, BMP #### [facility] [address] [address] [address] Ivan Seo LIPID PROFILEon 06-05-2022 CHOL-HDL RATIO NORM SEE BELOW Normal [facility] Comment on above: Result Comment: 3.3 - 4.4 LOW RISK 4.4 - 7.1 AVERAGE RISK 7.1 - 11.0 MODERATE RISK >11.0 HIGH RISK Performed By: #### C MP, TSH, FT3, T4, LIPID #### [facility] [address] [place] [address] Dr. Ivan Seo Cholesterol [Mass/Vol] 207 mg/dL Critically high <=200 [facility] Comment on above: Performed By: #### C MP, TSH, FT3, T4, LIPID #### [facility] [address] [place] [address] Dr. Ivan Seo Cholesterol in HDL [Mass/Vol] 46 mg/dL Normal 40-60 [facility] Comment on above: Performed By: #### C MP, TSH, FT3, T4, LIPID #### [facility] [address] [place] [address] Dr. Ivan Seo Cholesterol in LDL [Mass/Vol] 142.8 mg/dL Normal [facility] Comment on above: Performed By: #### C MP, TSH, FT3, T4, LIPID #### [facility] [address] [place] [address] Dr. Ivan Seo Cholesterol.total/Cho lesterol in HDL [Mass ratio] 4.5 {ratio} Normal [facility] Comment on above: Performed By: #### C MP, TSH, FT3, T4, LIPID #### [facility] [address] [place] [address] Dr. Ivan Seo HDL NORMAL > or = 60 mg/dl - LO W CARDIOVASCULAR RISK <40 mg/dl - HIGH CARDIOVASCULAR RISK Normal [facility] Comment on above: Performed By: #### C MP, TSH, FT3, T4, LIPID #### [facility] [address] [address] [address] Ivan Seo LDL CALC NORMAL SEE BELOW Normal [facility] Comment on above: Result Comment: <100 mg/dl OPTIMAL 100 - 129 mg/dl NEAR OR ABOVE OPTIMAL 130 - 159 mg/dl BORDERLINE HIGH 160 - 189 mg/dl HIGH >190 mg/dl VERY HIGH Performed By: #### C MP, TSH, FT3, T4, LIPID #### [facility] [address] [address] [address] Ivan Seo Triglyceride [Mass/Vol] 91 mg/dL Normal <=150 [facility] Comment on above: Performed By: #### C MP, TSH, FT3, T4, LIPID #### [facility] [address] [place] [address] Dr. Ivan Seo VLDL CALC 18.2 mg/dL Normal [facility] Comment on above: Performed By: #### C MP, TSH, FT3, T4, LIPID #### [facility] [address] [place] [address] Dr. Ivan Seo OCC BLD IMMUNO SCREENon 0 OCCULT BLOOD Negative Normal NEGATIVE [facility] Comment on above: Performed By: #### H STROPN, TSH, BNP, BMP #### [facility] [address] [place] [address] Dr. Ivan Seo PROF 14(COMP METB)on 022 Albumin [Mass/Vol] 4.0 g/dL Normal 3.4-5.0 [facility] Comment on above: Performed By: #### C MP, TSH, FT3, T4, LIPID #### [facility] [address] [place] [address] Dr. Ivan Seo Albumin/Globulin [Mass ratio] 1.1 {ratio} Normal [facility] Comment on above: Performed By: #### C MP, TSH, FT3, T4, LIPID #### [facility] [address] [place] [address] Dr. Ivan Seo ALP [Catalytic activity/Vol] 110 U/L Normal 46-116 [facility] Comment on above: Performed By: #### C MP, TSH, FT3, T4, LIPID #### [facility] [address] [place] [address] Dr. Ivan Seo ALT [Catalytic activity/Vol] 122 U/L Critically high 16-63 [facility] Comment on above: Performed By: #### C MP, TSH, FT3, T4, LIPID #### [facility] [address] [place] [address] Dr. Ivan Seo Anion gap [Moles/Vol] 13.0 mmol/L Normal [facility] Comment on above: Performed By: #### C MP, TSH, FT3, T4, LIPID #### [facility] [address] [place] [address] Dr. Ivan Seo AST [Catalytic activity/Vol] 37 U/L Normal 15-37 [facility] Comment on above: Performed By: #### C MP, TSH, FT3, T4, LIPID #### [facility] [address] [place] [address] Dr. Ivan Seo Bilirubin [Mass/Vol] 0.6 mg/dL Normal 0.2-1.0 [facility] Comment on above: Performed By: #### C MP, TSH, FT3, T4, LIPID #### [facility] [address] [place] [address] Dr. Ivan Seo Calcium [Mass/Vol] 9.3 mg/dL Normal 8.5-10.1 [facility] Comment on above: Performed By: #### C MP, TSH, FT3, T4, LIPID #### [facility] [address] [place] [address] Dr. Ivan Seo Chloride [Moles/Vol] 102 mmol/L Normal 98-107 [facility] Comment on above: Performed By: #### C MP, TSH, FT3, T4, LIPID #### [facility] [address] [place] [address] Dr. Ivan Seo CO2 [Moles/Vol] 29.1 mmol/L Normal 21.0-32.0 [facility] Comment on above: Performed By: #### C MP, TSH, FT3, T4, LIPID #### [facility] [address] [place] [address] Dr. Ivan Seo Creatinine [Mass/Vol] 0.84 mg/dL Normal 0.70-1.30 [facility] Comment on above: Performed By: #### C MP, TSH, FT3, T4, LIPID #### [facility] [address] [place] [address] Dr. Ivan Seo EGFR-AF MAURITIAN >60 Normal >=60 [facility] Comment on above: Performed By: #### C MP, TSH, FT3, T4, LIPID #### [facility] [address] [place] [address] Dr. Ivan Seo EGFR-NON AF MAURITIAN >60 Normal >=60 [facility] Comment on above: Performed By: #### C MP, TSH, FT3, T4, LIPID #### [facility] [address] [place] [address] Dr. Ivan Seo Globulin (S) [Mass/Vol] 3.8 g/dL Normal [facility] Comment on above: Performed By: #### C MP, TSH, FT3, T4, LIPID #### [facility] [address] [place] [address] Dr. Ivan Seo Glucose [Mass/Vol] 106 mg/dL Normal 74-106 [facility] Comment on above: Performed By: #### C MP, TSH, FT3, T4, LIPID #### [facility] [address] [place] [address] Dr. Ivan Seo Potassium [Moles/Vol] 4.1 mmol/L Normal 3.5-5.1 [facility] Comment on above: Performed By: #### C MP, TSH, FT3, T4, LIPID #### [facility] [address] [place] [address] Dr. Ivan Seo Protein [Mass/Vol] 7.8 g/dL Normal 6.4-8.2 [facility] Comment on above: Performed By: #### C MP, TSH, FT3, T4, LIPID #### [facility] [address] [place] [address] Dr. Ivan Seo Sodium [Moles/Vol] 140 mmol/L Normal 136-145 [facility] Comment on above: Performed By: #### C MP, TSH, FT3, T4, LIPID #### [facility] [address] [address] [address] Ivan Seo Urea nitrogen [Mass/Vol] 18.0 mg/dL Normal 7.0-18.0 [facility] Comment on above: Performed By: #### C MP, TSH, FT3, T4, LIPID #### [facility] [address] [address] [address] Ivan Seo Urea nitrogen/Creatinine [Mass ratio] 21.4 mg/mg Normal [facility] Comment on above: Performed By: #### C MP, TSH, FT3, T4, LIPID #### [facility] [address] [place] [address] Dr. Ivan Seo T4on 06-05-2022 T4 [Mass/Vol] 7.40 ug/dL Normal 4.50-12.10 [facility] Comment on above: Performed By: #### M G, BMP #### [facility] [address] [address] [address] Ivan Seo TSHon 06-05-2022 TSH 2.196 uIU/mL Normal 0.358-3.740 [facility] Comment on above: Performed By: #### C MP, TSH, FT3, T4, LIPID #### [facility] [address] [place] [address] Dr. Ivan Seo Vital Signs Date Time Vital Sign Value Performing Clinician Facility 09-24-2023 08:15-0400 Blood Pressure Location Benton CARL [facility] 09-24-2023 08:15-0400 Body temperature 98.42 [degF] Benton CARL [facility] 09-24-2023 08:15-0400 Diastolic blood pressure 79 mm[Hg] Benton CARL [facility] 09-24-2023 08:15-0400 Heart rate 64 /min Benton CARL [facility] 09-24-2023 08:15-0400 Respiratory rate 16 /min Benton CARL [facility] 09-24-2023 08:15-0400 Systolic blood pressure 131 mm[Hg] Benton CARL [facility] 05-14-2023 09:16-0500 Diastolic blood pressure 90 mm[Hg] Eduardo NILL [facility] 05-14-2023 09:16-0500 Heart rate 70 /min Eduardo NILL [facility] 05-14-2023 09:16-0500 Mean blood pressure 111 mm[Hg] Eduardo NILL [facility] 05-14-2023 09:16-0500 Respiratory rate 19 /min Eduardo NILL [facility] 05-14-2023 09:16-0500 SaO2% (BldA) [Mass fraction] 96 % Eduardo NILL [facility] 05-14-2023 09:16-0500 Systolic blood pressure 153 mm[Hg] Eduardo NILL [facility] 05-14-2023 09:10-0500 Diastolic blood pressure 95 mm[Hg] Eduardo NILL [facility] 05-14-2023 09:10-0500 Heart rate 71 /min Eduardo NILL [facility] 05-14-2023 09:10-0500 Mean blood pressure 110 mm[Hg] Eduardo NILL [facility] 05-14-2023 09:10-0500 Respiratory rate 16 /min Eduardo NILL [facility] 05-14-2023 09:10-0500 SaO2% (BldA) [Mass fraction] 97 % Eduardo NILL [facility] 05-14-2023 09:10-0500 Systolic blood pressure 141 mm[Hg] Eduardo NILL [facility] 05-14-2023 09:05-0500 Diastolic blood pressure 95 mm[Hg] Eduardo NILL [facility] 05-14-2023 09:05-0500 Heart rate 71 /min Eduardo NILL [facility] 05-14-2023 09:05-0500 Respiratory rate 18 /min Eduardo NILL [facility] 05-14-2023 09:05-0500 SaO2% (BldA) [Mass fraction] 97 % Eduardo NILL [facility] 05-14-2023 09:05-0500 Systolic blood pressure 141 mm[Hg] Eduardo NILL [facility] 05-14-2023 09:00-0500 Mean blood pressure 105 mm[Hg] Eduardo NILL [facility] 05-14-2023 08:55-0500 Body temperature 97.7 [degF] Eduardo NILL [facility] 05-14-2023 08:50-0500 Respiratory rate 23 /min Eduardo NILL [facility] 05-14-2023 08:45-0500 Respiratory rate 20 /min Eduardo NILL [facility] 05-14-2023 08:40-0500 Respiratory rate 21 /min Eduardo NILL [facility] 05-14-2023 07:03-0500 Blood Pressure Location Eduardo NILL [facility] 05-14-2023 07:03-0500 Body temperature 98.24 [degF] Eduardo NILL [facility] 04-14-2023 13:09-0400 Blood Pressure Location Eduardo NILL [facility] 04-14-2023 13:09-0400 Diastolic blood pressure 84 mm[Hg] Eduardo NILL [facility] 04-14-2023 13:09-0400 Heart rate 72 /min Eduardo NILL [facility] 04-14-2023 13:09-0400 Respiratory rate 16 /min Eduardo NILL [facility] 04-14-2023 13:09-0400 Systolic blood pressure 118 mm[Hg] Eduardo NILL [facility] 09-04-2022 08:24-0500 Blood Pressure Location Benton CARL [facility] 09-04-2022 08:24-0500 Diastolic blood pressure 70 mm[Hg] Benton CARL [facility] 09-04-2022 08:24-0500 Systolic blood pressure 124 mm[Hg] [facility] Encounters Encounter Date Encounter Type Care Provider Facility Start: 05-10-2024 ambulatory [facility] Start: 04-10-2024 ambulatory [facility] Start: 03-28-2024 ambulatory VARSHA FISH [facility] Start: 02-29-2024 ambulatory [facility] Start: 12-14-2023 ambulatory [facility] Start: 11-10-2023 ambulatory [facility] Start: 11-02-2023 ambulatory JUSTUS SALDAÑACKER [facility] Start: 09-24-2023 End: 09-24-2023 Patient encounter procedure Benton CARL [facility] Start: 07-20-2023 End: 07-20-2023 ambulatory [facility] Start: 06-14-2023 ambulatory [facility] Start: 06-14-2023 End: 06-14-2023 ambulatory [facility] Start: 05-26-2023 End: 05-27-2023 ambulatory Eduardo R KEMAR Facility:[facility] Start: 05-14-2023 End: 05-15-2023 ambulatory Eduardo R JAMEL [facility] Start: 05-14-2023 End: 05-14-2023 Patient encounter procedure Eduardo R KEMAR [facility] Start: 04-14-2023 End: 04-15-2023 ambulatory Josh Hull Facility:[facility] Start: 04-14-2023 End: 04-14-2023 Patient encounter procedure Eduardo R NILL [facility] Start: 03-04-2023 ambulatory Eduardo MELÉNDEZ Facility:[facility] Start: 09-25-2022 End: 09-26-[address] JOSH HULL . Facility:[facility] Start: 09-11-2022 End: 09-12-2022 Evaluation and management of inpatient DR JOSH HULL . Facility:[facility] Start: 09-04-2022 End: 09-04-[address] JOSH HULL . Facility:[facility] Start: 09-04-2022 End: 09-04-2022 Patient encounter procedure Benton CARL [facility] Start: 08-27-2022 End: 08-28-[address] JOSH HULL . Facility:[facility] Start: 08-18-2022 End: 08-20-[address] JOSH HULL . Facility:[facility] Start: 06-08-2022 Encounter for genera l adult medical examination without abnormal findings DR JOSH HULL . [facility] Start: 06-05-2022 End: 06-06-[address] JOSH HULL . Facility:[facility] Start: 06-05-2022 End: 06-06-2022 Encounter for general adult medical examination without abnormal findings DR JOSH HULL . Facility:[facility] Procedures Date Procedure Procedure Detail Performing Clinician Start: 05-14-2023 Colonoscopic polypectomy Eduardo MELÉNDEZ Start: 05-14-2023 Excision of dermatofibroma Benton CARL Comment on above: right posterior thig h Start: 05-14-2023 Excision of lipoma o f shoulder Benton CARL Start: 08-26-2022 Cardiac ablation usi ng fluoroscopy guidance Eduardo MELÉNDEZ Start: 06-05-[address] CONNOR HULL . Comment on above: Performed By: #### M G, BMP #### [facility] [address] [place] [address] Dr. Ivan Seo Cardiac ablation usi ng fluoroscopy guidance Benton CARL Hernia repair Benton CARL Repair of right ingu inal hernia Eduardo MELÉNDEZ Plan of Treatment Date Care Activity Detail Author Start: 09-24-2023 ambulatory Ambulatory Facility:[facility] Immunizations Immunization Date Immunization Notes Care Provider Fa cilisteven 06-08-2022 influenza virus vaccine, unspecified formulation Benton CARL [facility] 04-10-2022 influenza virus vaccine, unspecified formulation Benton CARL [facility] 04-10-2021 influenza virus vaccine, unspecified formulation Benton CARL [facility] 03-25-2020 [id number] Benton CARL [facility] 03-18-2020 influenza virus vaccine, unspecified formulation Benton CARL [facility] 04-03-2019 influenza virus vaccine, live, attenuated, for intranasal use Benton CARL [facility] 03-27-2019 influenza virus vaccine, unspecified formulation Benton CARL [facility] 06-01-2018 influenza virus vaccine, unspecified formulation Benton CARL [facility] NEGATED: Highlighted row has not occurred!09-12-2021 SARS-CoV-2 (COVID-19) Ad26 vaccine, recombinant Benton CARL [facility] Payers Date Payer Category Payer Unknown [id number] 2.16.84 [id number] 1975 Unknown [id number] 2.16.84 [id number] 1974 Unknown [id number] .16.84 [id number] 1974 Unknown [id number] .16.84 [id number] 1974 Unknown [id number] .16.84 [id number] 1974 Unknown [id number] 2.16.84 [id number] 1974 Unknown [id number] 2.16.8 [id number] 1974 Unknown [id number] 2.16.8 [id number] 1974 Unknown [id number] 2.16.8 [id number] 1974 Unknown [id number] 2.16.8 [id number] 1959 Unknown [id number] Social History Date Type Detail Facility Start: 09-04-2022 End: 09-24-2023 Tobacco smoking status Ex-smoker (finding) [facility] Comment on above: Quit 2008 Sex Assigned At Male [facility] Tobacco smoking status Never [facility] [place] Comment on above: Quit 2008 Functional Status Date Assessment Result Facility 09-24-2023 Functional Status N/A [facility] 05-14-2023 Functional Status N/A [facility] 04-14-2023 Functional Status N/A [facility] 09-04-2022 Functional Status N/A [facility] Clinical Notes 09-04-2022 to 11-02-2023 Note Date & Type Note Facility 11-02-2023 Note Cardiovascular Medic [facility] SUBJECTIVE Chief Complaint Patient presents with [...] Final Atrial Rate 06/14/2023 64 BPM Final IA Interval 06/14/2023 182 ms Final QRS DURATION 06/14/2023 152 ms Final QT Interval 06/14/2023 406 ms Final QTC CALCULATION(BAZETT) 06/14/2023 418 ms Final P Tower 06/14/2023 18 degrees Final R-Tower 06/14/2023 -9 degrees Final T Wave Tower 06/14/2023 135 degrees Final Ventricular Rate 06/14/2023 81 BPM Final Atrial Rate 06/14/2023 81 BPM Final IA Interval 06/14/2023 182 ms Final QRS DURATION 06/14/2023 150 ms Final QT Interv (more content not included)... [facility] 11-02-2023 Note Patient here for 3 m [...] All other systems reviewed and are negative. [facility] 09-24-2023 Hospital Discharge instructions Patient Education 09/24/2023 [...] urethra. Follow these instructions at home: Take fnsx-zrb-bqgrxgl and prescription medicines only as told by [...] provider. Document Revised: 12/31/2021 Document Reviewed: 12/31/2021 [employer] Patient Education 2022 [employer] Follow Up Care 09/04/2022 09:22:56 With:SIDDHARTHA MOLINA, Benton Zurita, URL Address: [address] [place] [address]- When: Unknown [facility] 07-20-2023 Note Patient here for fol low up ablation. Denies chest pain, SOB, palpitations, and bleeding on Eliquis. Says sometimes he feels something that's hard for him to describe. Says his BP continues to run high despite the increase in metoprolol to 100mg bid. Review of Systems All other systems reviewed and are negative. 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 Post ablation patient continued to have symptoms of palpitations, and an event monitor placed due to being admitted at [facility] for chest discomfort and acute PE. Event [...] unremarkable. EP study was done by Dr Fish and a intermediate RP tachycardia was induced. No ventricular overdrive pacing was performed to differentiate between SVT. Radiofrequency ablation of slow pathway was performed and he was discharged. Ventricular stimulation for VT was not done. Since his discharge from [facility], he was admitted to [facility] for chest pain. He was found to have an acute PE and was started on Eliquis. BLE doppler showed small nonocclusive right femoral vein thrombus. He also noted that he had also traveled down to [place] via car the few days prior to episode. Since his admission at [facility] last week, he has been feeling [...] of Systems Constitutional (more content not included)... [facility] 06-14-2023 Note OMPREHENSIVE EP STUD Y & POSTEROSEPTAL PATHWAY ABLATION PROCEDURE NOTE DATE OF PROCEDURE: 06/14/2023 PERFORMING PHYSICIAN: Dr. Rishabh Verma TUTORING MANAGER: Dr Stone Cloud INDICATIONS FOR PROCEDURE: [...] unremarkable. EP study was done by Dr Fish and a intermediate RP tachycardia was induced. No ventricular overdrive pacing was performed to differentiate between SVT. Radiofrequency ablation of slow pathway was performed and he was discharged. Ventricular stimulation for VT was not done. Since his discharge from [facility], he was admitted to [facility] for chest pain. He was found [...] performed CTI ablation (more content not included)... [facility] 06-14-2023 Note Patient: Sujata shukla Procedure Information Date/Time: 06/14/23829 Procedure: Ablation atrial flutter - to be scheduled before end due to insurance Location: [facility] TELEHEALTH NURSE 1 EP / [facility] VASCULAR LAB (Cath) Providers: Rishabh Verma MD Clinical information reviewed: Allergies Meds Physical Exam Airway Mallampati: II TM distance: >3 FB Neck ROM: full Cardiovascular Dental Pulmonary Abdominal Anesthesia Plan ASA 2 CSE Anesthetic plan and risks discussed with patient. Use of blood products discussed with patient who. Additional Equipment Requests [facility] 05-17-2023 Note [id number]#[id number] [facility] 05-14-2023 Hospital Discharge instructions Patient Education 05/14/2023 [...] unsweetened, w/added ascorbic acid 1 cup 0.5 [place] 1 cup 0.7 Vegetables Cooked Green beans 1 cup 4.0 Carrots 1/2 cup sliced 2.3 Peas 1 cup 8.8 Potato (baked, with skin) 1 medium potato 3.8 Raw [place] (with peel) 1 cucumber 1.5 Lettuce 1 [...] 8.7 Peanuts 1/2 cup 7.9 Chart from [employer] MediaCleveland [facility] FoundationHappify 2013. SEEK IMMEDIATE MEDICAL CARE IF: You [...] Information adapted from: ExitCare Patient Information 2009 Consult [employer] 2012 [email or web address]/d [email or web address]-[email or web address]-the-bas [facility] Follow Up Care 04/14/2023 14:21:37 With:Eduardo MELÉNDEZ Address: [address] [place] [id number] Business (1) When:7 to 10 days [facility] 05-14-2023 Note Patient: MARCO REYNA Age: 47 years Sex: Male : 1975 Associated Diagnoses: None Author: Eduardo MELÉNDEZ MD Subjective no changes to [facility] Comment on above: Result Comment: Elec tronically Signed By: Eduardo MELÉNDEZ MD\.br\Date and Time Signed: 05/14/23 07:43 EST 04-14-2023 Note Chief Complaint consultation for colonoscopy [...] Entresto 24 mg-26 (more content not included)... [facility] Comment on above: Result Comment: Elec tronically Signed By: KEMAR MOLINA, Eduardo Galloway\Date and Time Signed: 04/14/23 17:00 EDT 09-04-2022 Hospital Discharge instructions Patient Education 09/04/2022 [...] urethra. Follow these instructions at home: Take xczv-bzl-lrsqblq and prescription medicines only as told by [...] 06/14/2006 Document Revised: 05/09/2019 Document Reviewed: 07/19/2017 [employer] Patient Education 2020 [employer]. Follow Up Care 09/12/2021 08:41:31 With:Benton CARL MD, URL Address: [address] [place] [address] [place] [address]- When: Unknown [facility] Evaluation + Plan note Future Appointments Appointment Date:09/03/2023 08:00:00 AM Scheduled Provider:Benton CARL MD Location:[facility] Appointment Type:URO Office Visit Diagnostic Tests PendingPSA Total 07/29/23 [facility] Evaluation + Plan note Future Appointments Appointment Date:05/14/2023 09:00:00 AM Scheduled Provider: Location:[facility] Appointment Type:Surgery FT Appointment Date:09/03/2023 08:00:00 AM Scheduled Provider:Benton CARL MD Location:[facility] Appointment Type:URO Office Visit [facility] [place] Evaluation + Plan note Future Appointments Appointment Date:09/03/2023 08:00:00 AM Scheduled Provider:Benton CARL MD Location:[facility] Appointment Type:URO Office Visit [facility] Evaluation + Plan note Future Appointments Appointment Date:2024 08:30:00 AM Scheduled Provider:Benton CARL MD [facility] Appointment Type:URO Office Visit Diagnostic Tests PendingPSA Total 06/28/24 [facility] Hospital course Narrative No data available for this section [facility] Hospital Discharge instructions No data available for this section [facility] [place] Progress note No data available for this section [facility] Summary Purpose Family History No Family History [...] Personnel Name: Josh Hull MD Address: Address: [address] [place] [address] Personnel Name: Josh Hull MD Address: Address: [address] [place] [address] Personnel Name: Josh Hull MD Address: Address: [address] [place] [address] Personnel Name: Josh Hull MD Address: Address: [address] [place] [address] (unrecognized sect ion and content) No Status Records FoundNo Status Records FoundNo Status Records Found INFORMATION SOURCE (unrecogn ized section and content) DATE CREATED AUTHOR 11/04/2022 [facility] DATE CREATED AUTHOR AUTHOR'S ORGANIZ ATION 09/17/2023 [facility] DATE CREATED AUTHOR AUTHOR'S ORGANIZ ATION 05/12/2024 [facility] FOR RECORDS PERTAINING TO PATIENTS WHO [...] BE BASED ON THE PRIMARY CLINICAL RECORDS. [employer] provides no warranty or guarantee of the accuracy or completeness of information in this document.
[2024-05-13 09:57] LABS: Basophils Percent Auto 0.5 % (0.2-2.0); Eosinophils Absolute Auto 0.2 10^3/uL (0.0-0.7); Eosinophils Percent Auto 2.8 % (0.9-7.0); Hematocrit 46.9 % (42.0-54.0); Hemoglobin 16.1 g/dL (14.0-18.0); Immature Granulocytes Abs Auto 0.04 10^3/uL (0.00-0.03); Immature Granulocytes Pct Auto 0.5 % (0.0-0.5); Lymphocytes Absolute Auto 1.7 10^3/uL (1.2-3.8); Lymphocytes Percent Auto 19.5 % (20.5-60.0); Mean Corpuscular HGB Conc 34.3 g/dL (29.9-35.2); Mean Corpuscular Hemoglobin 32.4 pg (25.9-34.0); Mean Corpuscular Volume 94.4 fL (80.0-94.0); Mean Platelet Volume 8.6 fL (9.5-13.5); Monocytes Absolute Auto 0.7 10^3/uL (0.3-0.8); Monocytes Percent Auto 8.3 % (1.7-12.0); Neutrophils Absolute Auto 5.8 10^3/uL (1.4-6.5); Neutrophils Percent Auto 68.4 % (43.0-75.0); Platelet Count 215 10^3/uL (150-450); Red Blood Count 4.97 10^6/uL (4.70-6.10); White Blood Count 8.4 10^3/uL (4.0-11.0)
[2024-05-13 10:24] LABS: Estimated Average Glucose 111 mg/dL; Glycohemoglobin A1C 5.5 % (4.5-6.2)
[2024-05-13 10:45] LABS: Alanine Aminotransferase 22 U/L (16-63); Albumin Globulin Ratio 1.2; Alkaline Phosphatase 93 U/L (46-116); Anion Gap 14.4; Aspartate Amino Transferase 11 U/L (15-37); BUN Creatinine Ratio 11.2; Bilirubin Total 0.4 mg/dL (0.2-1.0); Calcium 9.2 mg/dL (8.5-10.1); Carbon Dioxide 27.6 mmol/L (21.0-32.0); Chloride 107 mmol/L (98-107); Chol HDL Ratio 3.4; Cholesterol 176 mg/dL (<=200); Estimated GFR (African America >60 (>=60 mL/min/1.73m^2); Estimated GFR (Non-African Ame >60 (>=60 mL/min/1.73m^2); Free T3 2.94 pg/mL (2.18-3.98); Globulin 3.3 g/dL; Glucose 104 mg/dL (74-106); HDL Cholesterol 52 mg/dL (40-60); Sodium 145 mmol/L (136-145); Thyroid Stimulating Hormone 1.843 uIU/mL (0.358-3.740); Total Protein 7.3 g/dL (6.4-8.2); Triglycerides 55 mg/dL (<=150)
== END 2024-05-13 09:42 | disposition home or self-care (01) ==
LOC: LAB 09:42
PROVIDERS: PCP Family Medicine; Visit Provider Family Medicine
DX: Z00.00 Encounter for general adult medical examination without abnormal findings (principal)
CPT/HCPCS: 36415; 80053; 80061; 83036; 83880; 84436; 84443; 84481; 85025; G0103

== ENCOUNTER 2025-05-05 07:39 | Outpatient (OUT) | payer BC, SELFPAY ==
--- OUTSIDE RECORDS SUMMARY | 2025-04-30 10:15 | XMS_ITS ---
Author Organization [facility] [place] Address [address] [place] [address] Care Team Providers Care Certified Flex Endoscope Reprocessor Name Role Phone Hiren Hull Primary Care Provider Allergies No Known Allergies REASON FOR VISIT wellness/ biometric screening Medications Medication SIG (Take, Route, Frequency, Duration) Notes Start Date End Date Status Entresto 49-51 MG 1 tablet Orally Twice a day ActiveAspirin 81 81 MG1 tablet Orally Once a dayActiveMetoprolol Succinate ER 100 MG1 tablet Oral Once a day; Duration: 30 daysActiveFarxiga 10 MG1 tablet Orally Once a dayActiveIbuprofen 800 MG1 tablet with food or milk as needed Orally every 8 hrs5ActiveTerazosin HCl 10 MG1 capsule at bedtime Oral Once a day; Duration: 90 daysActive Social History Tobacco Use: Social History Observation Description Date Details (start date - stop date) Former Smoker 06/28/1992 - 06/28/2008 Tobacco Use/Smoking Question Answer Notes Patient is a former smoker When did you start smoking?06/28/1992When did you stop smoking?06/28/2008UDIT-C (Standard) Question Answer Notes Did you have a drink containing alcohol in the p ast year? Yes How often did you have a drink containing alcohol in the past year?Monthly or less (1 point)How many drinks did you have on a typical day when you were drinking in the past year?3 or 4 drinks (1 point)How often did you have six or more drinks on one occasion in the past year?Less than monthly (1 point)Points3 InterpretationNegative Vital Signs Blood pressure systolic 134 mm Hg 04/30/20 25 Blood pressure diastolic 70 mm Hg 025 Height 69 in 04/30/2025 Weight 199.8 lbs 04/30/2025 BMI 29.5 kg/m2 04/30/2025 Encounters Encounter Location Date Provider Diagnosis [facility] [address] [place] [address] 04/30/2025 Hiren Hull Well adult Z00.0 0 Assessments Encounter Date Diagnosis (ICD Code) Assessment Notes Treatment Notes Treatment Clinical Notes Section Notes 04/30/2025 Well adult (ICD-10 - Z00.00) Plan Of Treatment Medication Medication Name Sig Start Date Stop Date Notes Ibuprofen 800 MG 1 tablet with food or milk as n eeded Orally every 8 hrs 04/30/2025 Pending Test Test Name Order Date HEMOGLOBIN A1C (GLYCO) 04/30/2025 INSULIN, TOTAL 04/30/2025 LIPID PANEL (CHOL/TRIG/HDL/LDL) 04/30/20 25 URIC ACID 04/30/2025 High Sensitivity Troponin 04/30/2025 BNP 04/30/2025 THYROID PANEL (T4/TSH/FREE T3) 5 PSA, SCREENING 04/30/2025 CMP (COMP MET FRIEND) w/eGFR CKD-EPI 2024 CBC WITH DIFF 04/30/2025 Progress Notes * Bernard REYNA WDOB: [birth year] (49 yo M)Acc No.[id number]:04/30/2025 Progress Note Patient: Bernard HUNT :?Mahesh Hull ([facility]), MDDOB:1975???Age: 49 Y???Sex:MaleDate:04/30/2025Phone:[phone]:[address] [place], [place] In:03:10 PM ESTCheck Out:03:52 PM EST Subjective: * Chief Complaints: * W ellness/ biometric screening * HPI: ???Depression Screening:?PHQ-9?Little interest or pleasure in doing things Not at all ?Feeling down, depressed, or hopeless?Not at all ?Trouble falling or staying asleep, or sleeping too much?Several days ?Feeling tired or having little energy?Not at all ?Poor appetite or overeating?Not at all ?Feeling bad about yourself or that you are a failure, or have let yourself or your family down?Not at all ?Trouble concentrating on things, such as reading the newspaper or watching television?Not at all ?Moving or speaking so slowly that other people could have noticed; or the opposite, being so fidgety or restless that you have been moving arounda lot more than usual?Not at all ?Thoughts that you would be better off orof hurting yourself in some way?Not at all ?Total Score?1 ?Interpretation?Minimal Depression * ROS: ???EENT:?hearing changes?denies.?visual changes?denies. non-healing mouth sores?denies.?swollen glands or neck lumps?denies.?hoarseness?denies.?sore throat?denies.?difficulty swallowing?denies.?nose bleeds?denies.?nasal congestion?denies.?ear ache?denies.?ear discharge denies.?ringing in ears?denies.?light sensitivity?denies.?eye pain?denies.?blurring?denies.?eye irritation?denies.?double vision?denies. vision loss?denies.?General/Constitutional:?Sweats:?Denies.?Fatigue?denies.?Sleep proble ms?denies.?Anorexia?denies.?Malaise?denies.?Weight loss?denies. Fatigue or Weakness?denies.?Fever or Chills?denies.?Cardiovascular:?Shortness of Breath w/lying flat?denies.?Lightheadedne ss/dizziness?denies.?Chest tightness/ heavy pressure?denies.?Swelling of legs, a nkles, or feet?denies.?Waking up with shortness of breath?denies.?Chest pain&#16 0;denies.?Palpitations?denies.?Weight gain?denies.?Respiratory:?Chronic or frequent cough?denies.?Coughing up blood&#1 60;denies.?Difficulty breathing?denies.?Productive cough?denies.?Snoring&#1 60;denies.?Shortness of breath that awakens from sleep (PND)?denies.?Chest pain? denies.?Sputum production?denies.?Wheezing?denies.?Musculoskeletal:?Joint pain?denies.?Joint Fluid?denies.?Backpain?denies.?Knee pain?denies.?Neck pain?denies.?Joint Stiffness?denies.?Muscle cramps?denies.?Weakness of muscles?denies.?Arthritis?denies.?Muscle aches?denies.?Pain in shoulder(s)?denies.?Swollen joints?denies.? * Active Problem List D72.829 Leukocytosis, unspec ified type Modified On:09/18/2022 Status:kmpxxiewgX98.99Other pulmonary embolism without acute cor pulmonale Modified On:03/04/2023 Status:icqufaknfZ82.8Other specified cardiac arrhythmias Modified On:04/27/2023 Status:mdglawyvwZ43.9CHF (congestive heart failure) Modified On:04/27/2023 Status:ehqagqkkyD71.9Cardiomyopathy Modified On:04/27/2023 Status:vememqienB69.0Unstable angina Modified On:04/27/2023 Status:axqysnoswW97.0Tachycardia Modified On:04/27/2023 Status:mfzubvnroR89.7LBBB (left bundle branch block) Modified On:04/27/2023 Status:umdhxzmxoN00.3Over weight Modified On:04/27/2023 Status:oqhfrptvlD83.09Pre-diabetes Modified On:04/27/2023 Status:ggjbiwpkdI18Kpxbdwjwvohf Modified On:04/27/2023 Status:uckzzatgkT26.0BPH (benign prostatic hypertrophy) Modified On:04/27/2023 Status:vvumobtxnG04.00Well adult Modified On:04/30/2023 Status:levnwlgnkZ10.10Lateral epicondylitis Modified On:04/30/2023 Status:orwpghrhpG82.672Foot pain, left Modified On:05/04/2023 Status:xwjehmtjxT89.22Hallux rigidus, left foot Modified On:05/04/2023 Status:jbdnzfrccT79.3Typical atrial flutter Modified On:05/06/2023 Status:mxwljbhhsU99.7Cardiomegaly Modified On:08/17/2023 Status:confirmed * Medical History: * Surgical History: C ardiac Loop Insertion inguinal hernia right right heart cath Cardiac Ablation Colonoscopy 05/14/2023Lipoma removal- Right thigh, Left upper back- Dr. Meléndez 05/14/23Loop Recorder 11/05/22 * Hospitalization/Major Diagno stic Procedure: N o Hospitalization History. * Family History: F ather: , CVA, diagnosed with Hypertension. M other: alive. B rother(s): alive, diagnosed with Hypertension. S ister(s): alive, diagnosed with Hypertension. 2 brother(s) , 4 sister(s) - healthy. 3 daughter(s) - healthy. . * Social History: ???Tobacco Use:?Tobacco Use/Smoking?Patient is a?former smoker ?When did you start smoking??06/28/1992 ?When did you stop smoking??06/28/2008 ???Drug/Alcohol:?AUDIT-C (Standard)?Did you have a drink containing alcohol in the past year??Yes ?How often did you have a drink containing alcohol in the past year?? Monthly or less (1 point) ?How many drinks did you have on a typical daywhen you were drinking in the past year??3 or 4 drinks (1 point) ?How often did you have six or more drinks on one occasion in the past year??Less than monthly (1 point) ?Points?3 ?Interpretation?Negative * Medications: T akingAspirin 81(Aspirin) 81 MG Tablet Delayed Release 1 tablet Orally Once a day Entresto(Sacubitril-Valsartan) 49-51 MG Tablet 1 tablet Orally Twice a day Farxiga(Dapagliflozin Propanediol) 10 MG Tablet 1 tablet Orally Once a day Metoprolol Succinate ER 100 MG Tablet Extended Release 24 Hour 1 tablet Oral Once a day Terazosin HCl 10 MG Capsule 1 capsule at bedtime Oral Once a day Medication List reviewed and reconciled with the patientTaking Aspirin 81(Aspirin) 81 MG Tablet Delayed Release 1 tablet Orally Once a day Taking Entresto(Sacubitril-Valsartan) 49-51 MG Tablet 1 tablet Orally Twice a day Taking Farxiga(Dapagliflozin Propanediol) 10 MG Tablet 1 tablet Orally Once a day Taking Metoprolol Succinate ER 100 MG Tablet Extended Release 24 Hour 1 tablet Oral Once a day Taking Terazosin HCl 10 MG Capsule 1 capsule at bedtime Oral Once a day Medication List reviewed and reconciled with the patient * Allergies: N .K.D.A.no[Allergies Verified] Objective: * Vitals: W t:199.8lbs, Ht: 69 in, BP:134/70mm Hg, BMI:29.5Index, Ht-cm: 175.26 cm, Wt-k.63 kg. * Examination: ???Physical Exam: ?GENERAL:?well developed, well nourished, in no acute distress.?HEAD:?normocephalic/atraumatic.?EYES:?pupils equal, round and reactive to light, conjunctivae and sclerae normal.?EARS:?no deformity or lesion of external ear, canals and TM appear normal bilaterally, TM's intact, not inflamed with normal light reflex, hearing grossly normal to conversational speech.?NOSE:?no deformity, discharge, inflammation, or lesions. ?MOUTH:?mucous membranes moist, normal oropharynx and posterior pharynx without lesions or exudates, tongue normal, dentition normal.?NECK:?neck supple, no masses or palpable cervical nodes, trachea midline, thyroid without nodules, masses, tenderness, or enlargement.?CHEST:?no chest wall deformity, no chest wall tenderness. ?LUNGS:?normal respiratory effort and clear to auscultation, no wheezes, rales, or rhonchi, good air exchange.?CARDIO:?regular rate and rhythm, normal S1 and S2, nor murmur, rub, or gallop.?PULSES:?normal capillary refill.?ABDOMEN:?soft, non-distended, non-tender, no masses.?MUSCULOSKELETAL:?no deformity or scoliosis noted, normal range of motion, joints normal, no erythema, edema, effusion, or ecchymosis.?EXTREMITY:?no clubbing, cyanosis, edema, or deformity withnormal ROM in both upper and lower bilateral extremities.?NEUROLOGIC:?grossly normal.?SKIN:?no rashes, ulcerations, or suspicious lesions.?LYMPH NODES:?no cervical adenopathy, nodes normal.?MENTAL STATUS:?alert and oriented x3, normal mood and affect.? Assessment: * Assessment: 1.?Well adult - Z00.00 (Primary)??? Plan: * Treatment: Start Ibuprofen Tablet, 800 MG, 1 tablet with food or milk as needed, Orally, every 8 hrs, 100, Refills 11.?LAB: HEMOGLOBIN A1C (GLYCO) ?LAB: INSULIN, TOTAL ?LAB: LIPID PANEL (CHOL/TRIG/HDL/LDL) ?LAB: URIC ACID ?LAB: High Sensitivity Troponin ?LAB: BNP ?LAB: THYROID PANEL (T4/TSH/FREE T3) ?LAB: PSA, SCREENING ?LAB: CMP (COMP MET FRIEND) w/eGFR CKD-EPI ?LAB: CBC WITH DIFF * Procedure Codes: * Preventive Medicine: ??Screenings/Counseling:?BMI ACTION PLAN?Above Normal BMI Follow-up?Dietary management education, guidance, and counseling * * Sign off status: CompletedVisit Status:?CHK (Check Out) true * Provider: Rossy Hull (TTC)MD Date: 1 06/30/2024 Generated for Printing/Faxing/eTransmitting on:?05/05/2025 07:44 AM EST History and Physical Notes * HPI (History of Present Illness) CategorySub-CategoryDetailNotesCategory NotesDepression ScreeningPHQ-9Little interest or pleasure in doing things: Not at allFeeling down, depressed, or hopeless: Not at allTrouble falling or staying asleep, or sleeping too much: Several daysFeeling tired or having little energy: Not at allPoor appetite or overeating: Not at allFeeling bad about yourself or that you are a failure, or have let yourself or your family down: Notat allTrouble concentrating on things, such as reading the newspaper or watching television: Not at allMoving or speaking so slowly that other people could have noticed; or the opposite, being so fidgety or restless that you have been moving around a lot more than usual: Not at allThoughts that you would be better off or of hurting yourself in some way: Not at allTotal Score: 1Interpretation: Minimal Depression Examination CategorySub-CategoryDetailNotesCategory NotesPhysical ExamGENERAL:well developed, well nourished, in no acute distressHEAD:normocephalic/atraumatic EYES:pupils equal, round and reactive to light, conjunctivae and sclerae normal EARS:no deformity or lesion of external ear, canals and TM appear normal bilaterally, TM's intact, not inflamed with normal light reflex, hearing grossly normal to conversational speechNOSE:no deformity, discharge, inflammation, or lesionsMOUTH:mucous membranes moist, normal oropharynx and posterior pharynx without lesions or exudates, tonguenormal, dentition normalNECK:neck supple, no masses or palpable cervical nodes, trachea midline, thyroid without nodules, masses, tenderness, or enlargementCHEST:no chest wall deformity, no chest wall tendernessLUNGS:normal respiratory effort and clear to auscultation, no wheezes, rales, or rhonchi, good air exchangeCARDIO:regular rate and rhythm, normal S1 and S2, nor murmur, rub, or gallopPULSES:normal capillary refillABDOMEN:soft, non-distended, non-tender, no massesRECTAL:MUSCULOSKELETAL:no deformity or scoliosis noted, normal range of motion, joints normal, no erythema, edema, effusion, or ecchymosisEXTREMITY:no clubbing, cyanosis, edema, or deformity with normal ROM in both upper and lower bilateral extremitiesNEUROLOGIC:grossly normalSKIN:no rashes, ulcerations, or suspicious lesionsLYMPH NODES:no cervical adenopathy, nodes normalMENTAL STATUS:alert and oriented x3, normal mood and affect
--- OUTSIDE RECORDS SUMMARY | 2025-05-05 07:43 | XMS_ITS | CCD ---
Author Organization [facility] Care Team Providers Care At Home Independent Call Center Agent Name Role Phone Josh Bach Primary Care Physician [phone] DELLA ., DR MORENO Attending Unavailable HOY ., [...] Unavailable HAY ., DR MÉNDEZ Consulting Unavailable ELNEA KNIGHT Consulting Unavailable ERNA WILKES Consulting Unavailable HOY ., DR MORENO Attending Unavailable HOY ., DR MORENO Consulting Unavailable HOY ., DR MORENO Primary Care Unavailable HOY ., DR MORENO Admitting Unavailable Benton CARL Attending Unavailable TEDDY DRUMMOND Attending Unavailable HUI BURKETT Referring Unavailable VARSHA FISH Referring Unavailable VARSHA FISH Referring Unavailable MADELAINE HUI Referring Unavailable JUSTUS LEE Attending Unavailable MADELAINE, HUI Referring Unavailable MADELAINE, HUI Referring Unavailable MADELAINE, HUI Referring Unavailable MADELAINE, HUI Referring Unavailable MADELAINE, HUI Referring Unavailable MADELAINE, HUI Referring Unavailable MADELAINE, HUI Referring Unavailable Allergies Allergy ClassificationReported Allergen(s)Allergy TypeDate of OnsetReaction(s) Facility (1 source)No Known Medication Allergies; Translations: [No Known Medication Allergies]Propensity to adverse reactions (disorder)[facility] Repository Medications Current Medications MedicationDrug Class(es)DatesSig (Normalized)Sig (Original)Ascorbic Acid (1 source)Vitamin CStart: 81-32-6009Adzcefa C 1,000 mg, Daily, Refills(s) 0 Start Date: 08/23/19 Status: Orderedaspirin 81 mg delayed release oral tablet (4 sources)Platelet Aggregation Inhibitor, Nonsteroidal Anti-inflammatory Drug Start: 22-82-6311drwk 1 tablet by mouth once dailyaspirin 81 mg Oral EC Tab 81 mg = 1 tab(s), Oral, Daily, Refills(s) 0, Prophylaxis Start Date: 04/14/23 Status: OrderedStart: 44-42-6664qaeyweu Refills(s) 0 Start Date: 09/04/22 Status: Orderedatorvastatin 40 mg oral tablet (2 sources)HMG-CoA Reductase InhibitorStart: 80-68-4725kces 1 tablet by mouth once dailyatorvastatin 40 mg Tab 40 mg = 1 tab(s), Oral, Daily, Refills(s) 0, High cholesterol Start Date: 04/07/23 Status: Ordereddapagliflozin 10 mg oral tablet (4 sources)Sodium-Glucose Cotransporter 2 InhibitorStart: 73-32-9366wruc 10 mg by mouth once dailydapagliflozin 10 mg, Oral, Daily, Refills(s) 0 Start Date: 09/04/22 Status: OrderedStart: 09-88-9757zrczisudvyeyc Refills(s) 0 Start Date: 09/04/22 Status: Orderedirbesartan 150 mg oral tablet (1 source)Angiotensin 2 Receptor BlockerStart: 11-02-1148mzao 1 mg by mouth once dailyirbesartan 150 mg Tab mg tab(s), Oral, Daily, Refills(s) 0 Start Date: 09/01/19 Status: Orderedmetoprolol tartrate 100 mg oral tablet (4 sources)beta-Adrenergic BlockerStart: 29-66-4072vjam 100 mg by mouth once dailymetoprolol 100 mg, Oral, Daily, Refills(s) 0, High blood pressure Start Date: 09/04/22 Status: OrderedStart: 68-86-2339zghfpugreu Refills(s) 0 Start Date: 09/04/22 Status: OrderedMulti Vitamin+ (1 source)Start: 40-78-1297Oejmn Vitamin+ Refill(s) 0 Start Date: 08/23/19 Status: OrderedRed Yeast Rice (1 source)Start: 95-62-9502rjwa 1 mg by mouth once dailyRed Yeast Rice mg, Oral, Daily, Refills(s) 0 Start Date: 08/23/19 Status: Orderedsacubitril 24 mg / valsartan 26 mg oral tablet (4 sources)Angiotensin 2 Receptor BlockerStart: 89-40-2651csnc 1 tablet by mouth twice dailyEntresto 24 mg-26 mg oral tablet 1 tab(s), Oral, BID, Refill(s) 0 Start Date: 04/07/23 Status: OrderedStart: 46-79-6501nbdezkxhzp-valsartan Start Date: 09/04/22 Status: Orderedtadalafil 10 mg oral tablet (4 sources)Phosphodiesterase 5 InhibitorStart: 06-88-3904Qpphjt 10 mg Tab 10 mg = 1 tab(s), Oral, As Directed, PRN for erectile dysfunction, # 30 tab(s), Ref ills(s) 2, [facility]acy: [id number], 175, cm, 08/30/20 8:53:00 EST, Height/Length Dosing, 109,kg, 08/30/20 8:53:00 EST, Weight Dosing Start Date: 08/30/20 Status: Orderedterazosin 10 mg oral capsule (4 sources)alpha-Adrenergic BlockerStart: 47-29-7978caem 1 capsule by mouth once dailyterazosin 10 mg Cap 10 mg = 1 cap(s), Oral, Daily, # 90 cap(s), Refills(s) 3, Pharmacy: [facility]/pharmacy #[id number], 175, cm, 05/14/23 6:57:00 EST, Height/Length Dosing, 103.9, kg, 05/14/23 6:57:00 EST, Weight Dosing Start Date: 07/08/23 Status: OrderedStart: 16-43-5676laqf 1 capsule by mouth once dailyterazosin 10 mg Cap 10 mg = 1 cap(s), Oral, Daily, # 90 cap(s), Refills(s) 3, [id number], cm, 09/04/22 8:34:00 EST, Height/Length Dosing, 99, kg, 09/04/22 8:34:00 EST, Weight Dosing Start Date: 09/04/22 Status: OrderedVitamin D3 (1 source)Start: 21-32-9510Thkirrc D3 Refills(s) 0 Start Date: 08/30/20 Status: Ordered Problems Active Problems Problem ClassificationProblemDateDocumented DateEpisodic/ChronicAcute bronchitis (1 source)Acute bronchitis, unspecified; Translations: [ACUTE BRONCHITIS UNSPECIFIED]Onset: 32-88-0261VsyemwtbJfdcgwy disorders (3 sources)Zbaxbvf82-72-6675TxdjsfsMawworu dysrhythmias (4 sources)Paroxysmal atrial fibrillation; Translations: [Atrial fibrillation] Onset: 341599-97-6176HqzfvwxWnwqspc dysrhythmias (7 sources)Tachycardia, unspecified; Translations: [Palpitations]Onset: 18-30-3095HlesrzrvZapilvj obstructive pulmonary disease and bronchiectasis (1 source)Bronchitis, not specified as acute or chronic; Translations: [BRONCHITIS NOT SPEC ACUTE/CHRON]Onset: 42-69-5865QsitdpdzBkolwslifx disorders (3 sources)Left bundle branch -54-0872PkbynnjDojrmaaatf heart failure; nonhypertensive (9 sources)Heart failure, unspecified; Translations: [Acute systolic (congestive) heart failure]Onset: 831471-54-3328OtjdohoJrexhivy mellitus without complication (9 sources)Glycosuria; Translations: [Glycosuria]Onset: 32-37-5797Wkxpekse Essential hypertension (5 sources)Hypertensive disorder; Translations: [Essential (primary) hypertension]Onset: 368447-91-8490MbbcsqvGtruzjvuqhi of prostate (6 sources)Benign prostatic hypertrophy with outflow obstruction; Translations: [Benign prostatic hyperplasia with lower urinary tract symptoms]Onset: 54-55-7796RnzgutkShpikgmldyuj conditions of male genital organs (4 sources)Ihejmnuwhif91-67-6884QaoogwonAxhmadvqq of unspecified nature or uncertain behavior (5 sources)Neoplasm of uncertain behavior of skin; Translations: [Neoplasm of uncertain behavior of skin]Onset: 91-72-2770LoeffajyLosyfmehisz chest pain (1 source)Chest pain, unspecified; Translations: [CHEST PAIN UNSPECIFIED]Onset: 80-27-1718CnliqittVauhx aftercare (1 source)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; Translations: [LONG-TERM CURRENT USE OF ASPIRIN]Onset: 80-47-8633KquucrelQavlc aftercare (1 source)Other jail (current) drug therapy; Translations: [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]Onset: 61-28-9987GpieimyzRmjui and unspecified benign neoplasm (1 source)Lipoma of skin and subcutaneous tissue of limb; Translations: [Benign lipomatous neoplasm of skin and subcutaneous tissue of left arm]Onset: 39-06-6603RrubfjgeCglfy and unspecified benign neoplasm (3 sources)Lipoma of nhqeybca55-49-2115IfnjoplhCykiu and unspecified benign neoplasm (1 source)Lipoma of skin and subcutaneous tissue of trunk; Translations: [Benign lipomatous neoplasm of skin and subcutaneous tissue of trunk]Onset: 05-14-2023 EpisodicOther and unspecified benign neoplasm (1 source)Fuceoahpguitrf28-25-8422CuloelbvCaqeg gastrointestinal disorders (1 source)Hyperplastic polyp of vdyquybxl84-93-6619ZdqnhwmjPeohf liver diseases (4 sources)Liver disease, unspecified; Translations: [LIVER DISEASE UNSPECIFIED] Onset: 44-82-2555FainbkpAezxe lower respiratory disease (1 source)Acute respiratory distress; Translations: [ACUTE RESPIRATORY DISTRESS] Onset: 35-63-7992NxmtlsxnAcyfz lower respiratory disease (1 source)Hypoxemia; Translations: [HYPOXEMIA]Onset: 22-34-4987QkipmemcEemak lower respiratory disease (1 source)Dyspnea, unspecified; Translations: [DYSPNEA UNSPECIFIED]Onset: 42-84-0543WlspfdnbDlipz male genital disorders (2 sources)Male erectile dysfunction, unspecified; Translations: [Erectile dysfunction]Onset: 33-23-1751ItreipoJyoca male genital disorders (4 sources)Brjylqssk25-73-9999PgyowpaUusjt nutritional; endocrine; and metabolic disorders (4 sources)Body mass index 30+ - jvexvoe44-75-7047OkzwbsrHdqde nutritional; endocrine; and metabolic disorders (3 sources)Tgonzdo19-92-2920ZhmkuxpFhdat screening for suspected conditions (not mental disorders or infectious disease) (6 sources)Abnormal findings on diagnostic imaging of other abdominal regions, including retroperitoneum; Translations: [Abnormal electrocardiogram [ECG] [EKG]]Onset: 74-23-4012JezhrbvbKbnd-; endo-; and myocarditis; cardiomyopathy (except that caused by tuberculosis or sexually transmitted disease) (3 sources)Uvpqtwvaoshxfh30-67-8654QjzfmcjUmomhhpzw; thrombophlebitis and thromboembolism (1 source)Acute embolism and thrombosis of right femoral vein; Translations: [ACUTE EMBO THROMBOS RT FEMORAL VEIN]Onset: 40-59-6766JcngglqnMihkuzrf; pneumothorax; pulmonary collapse (1 source)Pleurisy; Translations: [PLEURISY]Onset: 08-96-0201LskjlstwMuusuxigb heart disease (6 sources)Other pulmonary embolism without acute cor pulmonale; Translations: [H/O: pulmonary embolus]Onset: 50-07-7739EgfhcfzjUjcuiitg codes; unclassified (1 source)Other specified postprocedural states; Translations: [OTH SPECIFIED POSTPROCEDURAL STATES]Onset: 56-79-2319DnejhywjZdzaesnyi and history of mental health and substance abuse codes (5 sources)Ex-smoker; Translations: [Personal history of nicotine dependence] Onset: 775980-14-1634KjnaiamjZehldps (4 sources)Syncope and collapse; Translations: [SYNCOPE AND COLLAPSE]Onset: 26-13-8653LkysduifMtiwbakyvxaa (4 sources)CONTACT W/AND (SUSP) EXPOS COVID-19; Translations: [CONTACT W/AND (SUSP) EXPOS COVID-19]Onset: 28-03-9535Eaqdopzumiex (3 sources)Patient encounter -18-6210 Past or Other Problems Problem ClassificationProblemDateDocumented DateEpisodic/ChronicUnclassified (1 source)CONTACT W/AND (SUSP) EXPOS COVID-19; Translations: [CONTACT W/AND (SUSP) EXPOS COVID-19]Onset: 09-04-2022 Results Test NameValueInterpretationReference RangeFacilityOrders Onlyon 04-21-2025 Orders [id number] DoraSujata 1975 M Date Provider Department Center 04/21/2025 JOANN SULLIVAN [facility] Family History Family Status - Relation Status Age at Mother Alive Father DeceasedNormalUniAdena [facility] CenterOffice Visiton 66-92-6754Hjzpib-up [id number] Sujata Reyna 1975 M Date Provider Department Center 03/07/2025 JUSTUS [facility] Family History Family Status - Relation Status Age at Mother Alive Father Level of Service:55300 [place] OFFICE/OUTPATIENT ESTABLISHED LOW MDM 20 MIN Reason for Visit and Comments: Follow-up [730065] - 1 year routine follow up appointment Congestive Heart Failure [127] Unstable angina [Other] PSVT [Other] AVNRT Av nodeal re-entry [Other] Myocardiopathy [Other] Single subsegmental pulmonary embolism without acute cor pu [Other] Non-sustained ventricular tachycardia [Other] LBBB [Other] Typical atrial flutter [Other] Implantable loop recorder [Other]NormalUnKindred Hospital DaytonOrders Onlyon 17-51-9454Tqzekp [id number] Sujata Reyna 1975 M Date Provider Department Center 02/01/2025 HUI DIAMOND [facility] Onlyon 50-37-5591Kqtoyv [id number] Sujata Reyna 1975 M Date Provider Department Center 11/04/2024 325JOANN OMALLEY [facility] No family history on [facility] HospitalAmbulatory Visit Summaryon 33-47-5392Sdpgiefjfu Visit Summary SUJATA REYNA :1975 Visit Date:09/24/2023 Ambulatory Visit Instructions Your Diagnosis BPH with urinary obstruction Impotence Glucosuria Your Care Team Attending Physician - Benton CARL MD Primary Care Physician - Josh Bach MD This Is Your Medications List tadalafil (Cialis 10 mg Tab) terazosin (terazosin 10 mg Cap) Contact prescribing physician if questions or concerns aspirin (aspirin 81 mg Oral EC Tab) dapagliflozin metoprolol sacubitril-valsartan (Entresto 24 mg-26 mg oral tablet) Procedures Performed Colonoscopic polypectomy (05/14/2023), Excision of dermatofibroma (05/14/2023), Excision of lipoma of shoulder (05/14/2023), Fluoroscopic guidance for cardiac ablation (08/2022), Repair of right inguinal hernia. Discharge Vitals Temperature (Temporal Artery) 36.9 ?C Heart Rate (Peripheral) 64 Respiratory Rate 16 Blood Pressure 131/79 Height 175 cm Height 69 in Weight 99 kg Weight 217.8 lb BMI 32.33 What to do next Scheduled Follow-Up Appointments Wednesday. 2024 8:30 AM EST With: Benton CARL MD Where: [facility] Educationon 29-72-3806Hjpqixy EducationUrology Benign Prostatic Hyperplasia Benign prostatic hyperplasia (BPH) is an enlarged prostate gland that is caused by the normal agingprocess. The prostate may get bigger as a man gets older. The condition is not caused by cancer. The prostate is a walnut-sized gland that is involved in the production of semen. It is located in front of the rectum and below the bladder. The bladder stores urine. The urethra carries stored urine ou t of the body. An enlarged prostate can press on the urethra. This can make it harder to pass urine. The buildup of urine in the bladder can cause infection. Back pressure and infection may progress to bladder damage and kidney (renal) failure. What are the causes? This condition is part of the normal aging process. However, not all men develop problems from thiscondition. If the prostate enlarges away from the [...] urine that may remain in your bladder afteryou finish urinating. ? A digital rectal exam. [...] this procedure, a tool is inserted through theopening at the tip of the penis (urethra). [...] procedure uses radio frequencies to destroy and removea small amount of prostate tissue. ? Interstitial laser coagulation (ILC). This procedure uses a laser to destroy and remove a small amount of prostate tissue. ? Transurethral electrovaporization (TUVP). This procedure uses electrodes to destroy and remove a small amount of prostate tissue. ? Prostatic urethral lift. This procedure inserts an implant to push the lobes of the prostate awayfrom the urethra. Follow these instructions at home: ? Take syxz-cjb-byhwenw and prescription medicines only as told by your health care provider. ? Monitor your symptoms for any changes. Contact your health care provider with any changes. ? Avoid drinking large amounts of liquid before going to bed or out in public. ? Avoid or reduce how much caffeine or alcohol you drink. ? Give yourself time when you urinate. ? Keep all follow-up visits. This is important. Contact a health care provider if: ? You have unexplained back pain. ? Your symptoms do not get better with treatment. ? You develop side effects from the medicine (more content not included)... [facility] HospitalU[facility] Office/Clinic Noteon 70-52-6691Eljxhig Office/Clinic NoteChief Complaint 1 yr f/u w/ PSA HPI Staff Pt is here for 1 year F/U with PSA Previous PSA- 06/05/22 0.94 Previous DX; BPH, Impotence & Glycosuria Taking Terazosin 10 mg, Cialis 10 mg PRN PSA 04/30/23- 0.82 (ordered by PCP Denies visible blood, painful, burning urination History of Present Illness Tests reviewed: reviewed UA and PSA. I have reviewed the previous health record information and history for this patient from Dr. Carl. I have reviewed and verified the staff HPI to be accurate for this encounter. There have been no associated fever, chills, flank pain, or blood in the urine. Denies any urinary infections since last encounter. Review of Systems PHQ Score Initial Depression Screen Score: 0 SCORE ROS - Provider Constitutional: denies weight loss, denies hot flashes. Eyes: denies eye problems. Gastrointestinal: denies nausea, denies vomiting. Cardiovascular: denies chest pain or angina. Integumentary: no dryness Musculoskeletal: denies musculoskeletal symptoms. ENMT: denies otolaryngeal symptoms. Respiratory: no shortness of breath. Heme/Lymph: denies easy bleeding tendency, denies easy bruising tendency. Psychiatric: no confusion, no anxiety. Genitourinary: See HPI. Physical Exam Vitals & Measurements T: 36.9 ?C(Temporal Artery) HR: 64(Peripheral) RR: 16 BP: 131/79 HT: 69 in HT: 175 cm WT: 99 kg WT: 217.8 lb BMI: 32.33 General Appearance: alert, no distress, well nourished, well developed male. Assessment/Plan 1. BPH with urinary obstruction (N40.1: Benign prostatic hyperplasia with lower urinary tract symptoms) PSA: 08/30/20 - 1.16 06/05/22 - 0.94 04/30/23 - 0.82 PCP orders PSA. Stable. Taking Terazosin 10mg qd. Pt states he can tell a difference in urination by the end of the day since he takes medication in the morning. Not bothered by this. Denies nocturia. Strong stream. No issues with emptying. JAZMYNE will be due next year given age. -Follow up in 1 year w/ PSA & JAZMYNE 2. Impotence (N52.9: Male erectile dysfunction, unspecified) Reports he has Cialis 10mg prn at home, however has not needed to use it. Has it just in case. 3. Glucosuria (R81: Glycosuria) UA today shows 500 mg/dL. Not diabetic. Taking Farxiga. Follow-up With When Contact Information SIDDHARTHA MOLINA, Benton [place], [address] [place] [address]- Additional Instructions: 1 yr w/ PSA Patient Education Benign Prostatic Hyperplasia I, Julia Mcmahon, personally scribed for Dr. Carl on 09/24/2023 08:38:34. . Documentation recorded by the blankaibe, Julia Mcmahon, accurately reflects the services(s) I performed and decisions made by me. Authenticated by Dr. Carl on 09/24/2023 08:39:59. Problem List/Past Medical History Ongoing Anxiety Atrial fibrillation BMI 33.0-33.9,adult BPH with urinary obstruction Cardiomyopathy Chronic congestive heart failure Dermatofibroma of thigh Former smoker Glucosuria Glycosuria History of pulmonary embolism Hyperplastic polyp [...] Tab, 81 mg= 1 tab(s), Oral, Daily Cialis 10 [...] Tobacco Use:. Never Smokeless Tobacco Use:. Cigarettes, 1per day. Started age 17.0 Years. Stopped age 33 Years., 09/24/2023 Family History Hypertension: Mother and Father. Immunizations Vaccine Date Status Comments influenza virus vaccine, inactivated 06/08/2022 Recorded influenza virus vaccine, inactivated 04/10/2022 Recorded SARS-CoV-2 (COVID-19) Ad26 vaccine - Not Given Postpone due to refusal influenza virus vaccine, inactivated 04/10/2021 Recorded sipuleucel-T 03/25/2020 Recorded influenza virus vaccine, inactivated 03/18/2020 Recorded influenza virus vaccine, live, trivalent 04/03/2019 Recorded influenza virus vaccine, inactivated 03/27/2019 Recorded influenza virus vaccine, inactivated 06/01/2018 Recorded Lab Results Ambulatory Point of Care Results Bilirubin Urine Dipsti (more content not included)...[facility] HospitalComment on above:Result Comment: Electronically Signed By: Benton CARL MD\.br\Date and Time Signed: 09/24/23 08:40 EDT\.br\Electronically Co- Signed By: Julia Mcmahon\.br\Date and Time Co-Signed: 09/24/2407:38 EDT MRI ABDOMEN WO W CONon 48-78-2999LHK ABDOMEN WO W CONEXAMINATION: MRI ABDOMEN WO W CON HISTORY: Ct [...] Electronically authenticated by: TRIPP CAMPO Date: 2022-09-28 08:[address] [place], [place] [address]XR FOREIGN BODY EYEon 25-54-2033BM FOREIGN BODY EYEEXAMINATION: XR FOREIGN BODY EYE HISTORY: Foreign body in eye COMPARISON: No relevant comparison available. FINDINGS: ORBITS: Negative for a metallic foreign body. OTHER: Negative. IMPRESSION: No metallic foreign body in the orbits Electronically authenticated by: TERESSA BRIDGES Date: 2022-09-25 07:59NormalTh[facility] AUTO DIFFon [id number] #0.0 103/ulNormal0.0-0.1The [facility] HospitalComment on above:Performed By: #### HSTROPN, TSH, BNP, BMP #### [facility] [address] [place] [address] Dr. Ivan SeoBasophils/100 WBC (Bld)0.3 %Normal0.2-2.0[facility] Comment on above:Performed By: #### HSTROPN, TSH, BNP, BMP #### [facility] [address] [place] [address] Dr. Ivan Fried #0.0 103/ulNormal0.0-0.7The [facility] HospitalComment on above: Performed By: #### HSTROPN, TSH, BNP, BMP #### [facility] [address] [place] [address] Dr. Ivan Simmonsosinophils/100 WBC (Bld)0.3 %Critically low0.9-7.0The [facility] HospitalComment on above:Performed By: #### HSTROPN, TSH, BNP, BMP #### [facility] [address] [place] [address] Dr. Ivan Simmonsrythrocyte distribution width (RBC) [Ratio]12.7 %Ghztmk56.0-15.0 The [facility] HospitalComment on above:Performed By: #### HSTROPN, TSH, BNP, BMP #### [facility] [address] [place] [address] Dr. Ivan SeoHematocrit (Bld) [Volume fraction]32.9 %Critically low42.0-54.0 [facility] Hospitalment on above:Performed By: #### HSTROPN, TSH, BNP, BMP #### [facility] [address] [place] [address] Dr. Ivan SeoHemoglobin (Bld) [Mass/Vol]11.5 g/dLCritically low14.0-18.0The [facility] HospitalComment on above:Performed By: #### HSTROPN, TSH, BNP, BMP #### [facility] [address] [place] [address] Dr. Ivan Ventura #0.13 10e3/ulCritically high0.00-0.03[facility] Comment on above:Performed By: #### HSTROPN, TSH, BNP, BMP #### [facility] [address] [place] [address] Dr. Ivan Ventura %1.0 %Critically high0.0-0.5The [facility] HospitalComment on above:Performed By: #### HSTROPN, TSH, BNP, BMP #### [facility] [address] [place] [address] Dr. Ivan Santos #2.1 103/ulNormal1.2-3.8The [facility] HospitalComment on above:Performed By: #### HSTROPN, TSH, BNP, BMP #### [facility] [address] [place] [address] Dr. Ivan Mendozahocytes/100 WBC (Bld)15.6 %Critically low20.5-60.0The [facility] HospitalComment on above:Performed By: #### HSTROPN, TSH, BNP, BMP #### [facility] [address] [place] [address] Dr. Ivan ZabalaUAL DIFF REQNONormalThe [facility] HospitalComment on above: Performed By: #### HSTROPN, TSH, BNP, BMP #### [facility] [address] [place] [address] Dr. Ivan Falcon (RBC) [Entitic mass]31.3 jjYlbhmk36.9-34.0The [facility] HospitalComment on above:Performed By: #### HSTROPN, TSH, BNP, BMP #### [facility] [address] [place] [address] Dr. Ivan Perdomo (RBC) [Mass/Vol]35.0 g/gNTccgmt30.9-35.2The [facility] HospitalComment on above:Performed By: #### HSTROPN, TSH, BNP, BMP #### [facility] [address] [place] [address] Dr. Ivan Perdomo (RBC) [Entitic vol]89.4 rASjqsyn72.0-94.0The [facility] HospitalComment on above:Performed By: #### HSTROPN, TSH, BNP, BMP #### [facility] [address] [place] [address] Dr. Ivan Neumann #1.2 103/ulCritically high0.3-0.8[facility] Comment on above:Performed By: #### HSTROPN, TSH, BNP, BMP #### [facility] [address] [place] [address] Dr. Ivan Villanuevaocytes/100 WBC (Bld)9.1 %Normal1.7-12.0[facility] Comment on above:Performed By: #### HSTROPN, TSH, BNP, BMP #### [facility] [address] [place] [address] Dr. Ivan Pastor #9.9 103/ulCritically high1.4-6.5[facility] Comment on above:Performed By: #### HSTROPN, TSH, BNP, BMP #### [facility] [address] [place] [address] Dr. Ivan Martinutrophils/100 WBC (Bld)73.7 %Dgeozu56.0-75.0The [facility] HospitalComment on above:Performed By: #### HSTROPN, TSH, BNP, BMP #### [facility] [address] [place] [address] Dr. Ivan Cannon mean volume (Bld) [Entitic vol]8.9 fLCritically low 9.5-13.5The [facility] HospitalComment on above:Performed By: #### HSTROPN, TSH, BNP, BMP #### [facility] [address] [place] [address] Dr. Ivan SeoPLT264 103/jhMlqbjd641-597Tmm [facility] HospitalComment on above: Performed By: #### HSTROPN, TSH, BNP, BMP #### [facility] [address] [place] [address] Dr. Ivan SeoRBC3.68 106/ulCritically low4.70-6.10The Wood County HospitalComment on above:Performed By: #### HSTROPN, TSH, BNP, BMP #### [facility] [address] [place] [address] Dr. Ivan SeoWBC13.4 103/ulCritically high4.0-11.0The [facility] County HospitalComment on above:Performed By: #### HSTROPN, TSH, BNP, BMP #### [facility] [address] [place] [address] Dr. Ivan Henriquez 14(COMP METB)on 95-16-6128Pepbveg [Mass/Vol]3.1 g/dL Critically low3.4-5.0The [facility] County HospitalComment on above:Performed By: #### HSTROPN, TSH, BNP, BMP #### [facility] [address] [place] [address] Dr. Ivan SeoAlbumin/Globulin [Mass ratio]0.8 {ratio}NormalThe [facility] HospitalCommunson [facility] on above:Performed By: #### HSTROPN, TSH, BNP, BMP #### [facility] [address] [place] [address] Dr. Ivan Johnson [Catalytic activity/Vol]81 U/CGcfslv09-275Eml [facility] HospitalComment on above:Performed By: #### HSTROPN, TSH, BNP, BMP #### [facility] [address] [place] [address] Dr. Ivan Phelps [Catalytic activity/Vol]43 U/ARkgjxv95-84Rpe [facility] HospitalComment on above:Performed By: #### HSTROPN, TSH, BNP, BMP #### [facility] [address] [place] [address] Dr. Ivan Colorado gap [Moles/Vol]11.7 mmol/LNormalUniversity Hospitals St. [facility] Comment on above:Performed By: #### HSTROPN, TSH, BNP, BMP #### [facility] [address] [place] [address] Dr. Ivan SeoAST [Catalytic activity/Vol]18 U/XXigfjt64-00WlxUniversity Hospitals St. John Medical CenterComment on above:Performed By: #### HSTROPN, TSH, BNP, BMP #### [facility] [address] [place] [address] Dr. Ivan SeoBilirubin [Mass/Vol]0.5 mg/dLNormal0.2-1.0[facility] Comment on above:Performed By: #### HSTROPN, TSH, BNP, BMP #### [facility] [address] [place] [address] Dr. Ivan SeoCalcium [Mass/Vol]8.9 mg/dLNormal8.5-10.1[facility] Comment on above:Performed By: #### HSTROPN, TSH, BNP, BMP #### [facility] [address] [place] [address] Dr. Ivan SeoChloride [Moles/Vol]106 mmol/YHljpmn08-248MojUniversity Hospitals St. John Medical Center Comment on above:Performed By: #### HSTROPN, TSH, BNP, BMP #### [facility] [address] [place] [address] Dr. Ivan SeoCO2 [Moles/Vol]27.7 mmol/SYgnijk37.0-32.0[facility] Comment on above:Performed By: #### HSTROPN, TSH, BNP, BMP #### [facility] [address] [place] [address] Dr. Ivan SeoCreatinine [Mass/Vol]0.75 mg/dLNormal0.70-1.30The [facility] HospitalComment on above:Performed By: #### HSTROPN, TSH, BNP, BMP #### [facility] [address] [place] [address] Dr. Ivan Richard-AF ERITREAN>60Normal>=60The [facility] HospitalComment on above:Performed By: #### HSTROPN, TSH, BNP, BMP #### [facility] [address] [address] [address] Ivan Richard-NON AF ERITREAN>60Normal>=60The [facility] HospitalComment on above:Performed By: #### HSTROPN, TSH, BNP, BMP #### [facility] [address] [address] [address] Ivan SeoGlobulin (S) [Mass/Vol]3.8 g/dLNormalThe [facility] County HospitalComment on above:Performed By: #### HSTROPN, TSH, BNP, BMP #### [facility] [address] [address] [address] Ivan SeoGlucose [Mass/Vol]100 mg/oBZtlilv69-052HxrUniversity Hospitals St. [facility] Medical Center Comment on above:Performed By: #### HSTROPN, TSH, BNP, BMP #### [facility] [address] [address] [address] Ivan SeoPotassium [Moles/Vol]3.4 mmol/LCritically low3.5-5.1The [facility] HospitalComment on above:Performed By: #### HSTROPN, TSH, BNP, BMP #### [facility] [address] [address] [address] Ivan SeoProtein [Mass/Vol]6.9 g/dLNormal6.4-8.2[facility] Comment on above:Performed By: #### HSTROPN, TSH, BNP, BMP #### [facility] [address] [address] [address] Ivan SeoSodium [Moles/Vol]142 mmol/ANxradk905-617SygUniversity Hospitals St. [facility] Center Comment on above:Performed By: #### HSTROPN, TSH, BNP, BMP #### [facility] [address] [address] [address] Ivan SeoUrea nitrogen [Mass/Vol]16.0 mg/dLNormal7.0-18.0The [facility] HospitalComment on above:Performed By: #### HSTROPN, TSH, BNP, BMP #### [facility] [address] [address] [address] Ivan SeoUrea nitrogen/Creatinine [Mass ratio]21.3 mg/mgNormalThe [facility] County HospitalComment on above:Performed By: #### HSTROPN, TSH, BNP, BMP #### [facility] [address] [place] [address] Dr. Ivan Juarez 34-16-5516Shgxjuuiaol peptide B (Bld) [Mass/Vol]194.0 pg/mL Normal<=450.0The [facility] County HospitalComment on above:Performed By: #### BNP #### [facility] [address] [place] [address] Dr. Ivan OsorioC AUTO DIFFon [id number] #0.0 103/ulNormal0.0-0.1The [facility] County HospitalComment on above:Performed By: #### MG, BMP #### [facility] [address] [place] [address] Dr. Ivan SeoBasophils/100 WBC (Bld)0.2 %Normal0.2-2.0[facility] Comment on above:Performed By: #### MG, BMP #### [facility] [address] [place] [address] Dr. Ivan Fried #0.0 103/ulNormal0.0-0.7The [facility] HospitalComment on above: Performed By: #### MG, BMP #### [facility] [address] [place] [address] Dr. Ivan Simmonsosinophils/100 WBC (Bld)0.0 %Critically low0.9-7.0The [facility] HospitalComment on above:Performed By: #### MG, BMP #### [facility] [address] [place] [address] Dr. Ivan Simmonsrythrocyte distribution width (RBC) [Ratio]12.7 %Olbiva59.0-15.[address] John Medical CenterComment on above:Performed By: #### MG, BMP #### [facility] [address] [place] [address] Dr. Ivan SeoHematocrit (Bld) [Volume fraction]34.5 %Critically low42.0-54.0 The [facility] HospitalComment on above:Performed By: #### MG, BMP #### [facility] [address] [place] [address] Dr. Ivan SeoHemoglobin (Bld) [Mass/Vol]11.8 g/dLCritically low14.0-18.0The [facility] HospitalComment on above:Performed By: #### MG, BMP #### [facility] [address] [place] [address] Dr. Ivan Ventura #0.18 10e3/ulCritically high0.00-0.03[facility] Comment on above:Performed By: #### MG, BMP #### [facility] [address] [place] [address] Dr. Ivan Ventura %1.4 %Critically high0.0-0.5The [facility] HospitalComment on above:Performed By: #### MG, BMP #### [facility] [address] [place] [address] Dr. Ivan Santos #1.4 103/ulNormal1.2-3.8The [facility] HospitalComment on above:Performed By: #### MG, BMP #### [facility] [address] [place] [address] Dr. Ivan Zavalamphocytes/100 WBC (Bld)10.2 %Critically low20.5-60.0The [facility] HospitalComment on above:Performed By: #### MG, BMP #### [facility] [address] [place] [address] Dr. Ivan ZabalaUAL DIFF REQNONormalThe [facility] HospitalComment on above: Performed By: #### MG, BMP #### [facility] [address] [place] [address] Dr. Ivan PerdomoH (RBC) [Entitic mass]30.8 orSczhxm83.9-34.0The [facility] HospitalComment on above:Performed By: #### MG, BMP #### [facility] [address] [place] [address] Dr. Ivan Perdomo (RBC) [Mass/Vol]34.2 g/pGBajppq64.9-35.2The [facility] HospitalComment on above:Performed By: #### MG, BMP #### [facility] [address] [place] [address] Dr. Ivan SeoNEW[facility] (RBC) [Entitic vol]90.1 iEMnjubm42.0-94.0The [facility] HospitalComment on above:Performed By: #### MG, BMP #### [facility] [address] [place] [address] Dr. Ivan Neumann #0.5 103/ulNormal0.3-0.8The [facility] HospitalComment on above:Performed By: #### MG, BMP #### [facility] [address] [place] [address] Dr. Ivan Villanuevaocytes/100 WBC (Bld)3.7 %Normal1.7-12.0[facility] Comment on above:Performed By: #### MG, BMP #### [facility] [address] [place] [address] Dr. Ivan Pastor #11.2 103/ulCritically high1.4-6.5[facility] Comment on above:Performed By: #### MG, BMP #### [facility] [address] [place] [address] Dr. Ivan Martinutrophils/100 WBC (Bld)84.5 %Critically high43.0-75.0The [facility] HospitalComment on above:Performed By: #### MG, BMP #### [facility] [address] [place] [address] Dr. Ivan Cannon mean volume (Bld) [Entitic vol]9.2 fLCritically low 9.5-13.5The [facility] HospitalComment on above:Performed By: #### MG, BMP #### [facility] [address] [address] [address] Ivan SeoPLT276 103/urTgebur475-897Xmz [facility] HospitalComment on above: Performed By: #### MG, BMP #### [facility] [address] [place] [address] Dr. Ivan SeoRBC3.83 106/ulCritically low4.70-6.10The [facility] HospitalComment on above:Performed By: #### MG, BMP #### [facility] [address] [place] [address] Dr. Ivan SeoWBC13.3 103/ulCritically high4.0-11.0The [facility] HospitalComment on above:Performed By: #### MG, BMP #### [facility] [address] [place] [address] Dr. Ivan Thomas SPUTUMon [id number] SPUTUMCulture Observations: NORMAL RESPIRATORY SAUNDRA.NormalThe [facility] HospitalComment on above:Performed By: #### HSTROPN, TSH, BNP, BMP #### [facility] [address] [place] [address] Dr. Ivan Thomas URINEon [id number] URINECulture Observations: NO GROWTH.NormalThe [facility] HospitalComment on above:Performed By: #### MG, BMP #### [facility] [address] [place] [address] Dr. Love ChangECHOCARDIO M/2D COMPLETEon [id number] M/2D COMPLETE Patient: SUJATA REYNA Exam Date: 09/11/2022 : 1975 Gender:M Ordering : DR JOSH BACH . Admission #: [id number] Family : Order #: [id number] CLICK HERE TO VIEW EXAM ECHOCARDIOGRAM REPORT [...] by: Puja Colon M.D. on 09/11/2022 at 14:35[facility]. [facility] HospitalPOINT OF CARE GLUCOSEon 88-84-5248Neexcnq [Mass/Vol]122 mg/dLCritically umzl77-106OlcUniversity Hospitals St. John Medical CenterComment on above:Performed By: #### HSTROPN, TSH, BNP, BMP #### [facility] [address] [place] [address] Dr. Ivan SeoGlucose [Mass/Vol]161 mg/dLCritically iaek09-770OuoUniversity Hospitals St. John Medical CenterCommunson [facility] on above:Performed By: #### MG, BMP #### [facility] [address] [place] [address] Dr. Ivan SeoGlucose [Mass/Vol]123 mg/dLCritically naiw10-784CoeCleveland Clinic Foundation on above:Performed By: #### HSTROPN, TSH, BNP, BMP #### [facility] [address] [place] [address] Dr. Ivan Henriquez 14(COMP METB)on 12-24-8654Azegxtk [Mass/Vol]3.5 g/dLNormal 3.4-5.0[facility] on above:Performed By: #### HSTROPN, TSH, BNP, BMP #### [facility] [address] [place] [address] Dr. Ivan SeoAlbumin/Globulin [Mass ratio]0.9 {ratio}NormalThe [facility] HospitalComment on above:Performed By: #### HSTROPN, TSH, BNP, BMP #### [facility] [address] [place] [address] Dr. Ivan Johnson [Catalytic activity/Vol]106 U/RVlylka10-067Pcn [facility] HospitalComment on above:Performed By: #### HSTROPN, TSH, BNP, BMP #### [facility] [address] [place] [address] Dr. Ivan Phelps [Catalytic activity/Vol]37 U/AAmeemh34-57Kmi [facility] HospitalComment on above:Performed By: #### HSTROPN, TSH, BNP, BMP #### [facility] [address] [place] [address] Dr. Ivan Colorado gap [Moles/Vol]11.5 mmol/LNormalThe [facility] Comment on above:Performed By: #### HSTROPN, TSH, BNP, BMP #### [facility] [address] [place] [address] Dr. Ivan SeoAST [Catalytic activity/Vol]15 U/JOcdgjh55-60Orq [facility] HospitalComment on above:Performed By: #### HSTROPN, TSH, BNP, BMP #### [facility] [address] [place] [address] Dr. Ivan SeoBilirubin [Mass/Vol]0.5 mg/dLNormal0.2-1.0[facility] Comment on above:Performed By: #### HSTROPN, TSH, BNP, BMP #### [facility] [address] [place] [address] Dr. Ivan SeoCalcium [Mass/Vol]9.1 mg/dLNormal8.5-10.1[facility] Comment on above:Performed By: #### HSTROPN, TSH, BNP, BMP #### [facility] [address] [place] [address] Dr. Ivan SeoChloride [Moles/Vol]104 mmol/YDkdjjf20-915Teo [facility] Comment on above:Performed By: #### HSTROPN, TSH, BNP, BMP #### [facility] [address] [place] [address] Dr. Ivan SeoCO2 [Moles/Vol]27.1 mmol/DRnjtxg51.0-32.0The [facility] Comment on above:Performed By: #### HSTROPN, TSH, BNP, BMP #### [facility] [address] [place] [address] Dr. Ivan SeoCreatinine [Mass/Vol]0.78 mg/dLNormal0.70-1.30The [facility] HospitalComment on above:Performed By: #### HSTROPN, TSH, BNP, BMP #### [facility] [address] [place] [address] Dr. Ivan SimmonsGFR-AF ERITREAN>60Normal>=60The [facility] HospitalComment on above:Performed By: #### HSTROPN, TSH, BNP, BMP #### [facility] [address] [place] [address] Dr. Ivan Richard-NON AF ERITREAN>60Normal>=60The [facility] HospitalComment on above:Performed By: #### HSTROPN, TSH, BNP, BMP #### [facility] [address] [place] [address] Dr. Ivan SeoGlobulin (S) [Mass/Vol]4.0 g/dLNormalThe [facility] HospitalComment on above:Performed By: #### HSTROPN, TSH, BNP, BMP #### [facility] [address] [place] [address] Dr. Ivan SeoGlucose [Mass/Vol]176 mg/dLCritically whqe44-600Fxw [facility] Hospitalment on above:Performed By: #### HSTROPN, TSH, BNP, BMP #### [facility] [address] [place] [address] Dr. Ivan SeoPotassium [Moles/Vol]3.6 mmol/LNormal3.5-5.1[facility] Comment on above:Performed By: #### HSTROPN, TSH, BNP, BMP #### [facility] [address] [place] [address] Dr. Ivan SeoProtein [Mass/Vol]7.5 g/dLNormal6.4-8.2[facility] Comment on above:Performed By: #### HSTROPN, TSH, BNP, BMP #### [facility] [address] [place] [address] Dr. Ivan SeoSodium [Moles/Vol]139 mmol/FLcheyi709-637Zwf [facility] Comment on above:Performed By: #### HSTROPN, TSH, BNP, BMP #### [facility] [address] [place] [address] Dr. Ivan SeoUrea nitrogen [Mass/Vol]11.0 mg/dLNormal7.0-18.0The [facility] HospitalComment on above:Performed By: #### HSTROPN, TSH, BNP, BMP #### [facility] [address] [place] [address] Dr. Ivan Lundberg nitrogen/Creatinine [Mass ratio]14.1 mg/mgNoSamaritan HospitalComment on above:Performed By: #### HSTROPN, TSH, BNP, BMP #### [facility] [address] [place] [address] Dr. Ivan Meza HEPARIN MONITORon 23-10-7280zNZE Coag (Bld) [Time]47.8 s Jqukzs42.5-54.2[facility] John Medical CenterComment on above:Performed By: #### HSTROPN, TSH, BNP, BMP #### [facility] [address] [place] [address] Dr. Ivan SeoSPUTUM GRAM STAINon 40-12-8273GLHFLATXMfhcvvPex [facility] Comment on above:Performed By: #### HSTROPN, TSH, BNP, BMP #### [facility] [address] [address] [address]iongPHTHEROIDSMount St. Mary HospitalCommunson [facility] on above:Performed By: #### HSTROPN, TSH, BNP, BMP #### [facility] [address] [address] [address] Ivan GlasgowALS<[address] [place], [place] [address]Comment on above: Performed By: #### HSTROPN, TSH, BNP, BMP #### [facility] [address] [address] [address] ELEMENTSMount St. Mary HospitalCommunson healthcare [facility] on above: Performed By: #### HSTROPN, TSH, BNP, BMP #### [facility] [address] [address] [address] Ivan Navas NEG [facility] HospitalCommun[facility] on above: Performed By: #### HSTROPN, TSH, BNP, BMP #### [facility] [address] [address] [address] Ivan Navas NEG DIPPLOCOCCIMount St. Mary HospitalCommunson [facility] on above: Performed By: #### HSTROPN, TSH, BNP, BMP #### [facility] [address] [address] [address] Ivan Navas POS [facility] HospitalCommunson [facility] on above: Performed By: #### HSTROPN, TSH, BNP, BMP #### [facility] [address] [address] [address] Ivan Navas POSITIVE COCCIMODMercy Memorial HospitalCommunson [facility] on above:Performed By: #### HSTROPN, TSH, BNP, BMP #### [facility] [address] [address] [address] Ivan Ribera ([facility]) [#/Vol]10*3/[facility] on above:Performed By: #### HSTROPN, TSH, BNP, BMP #### [facility] [address] [address] [address] Ivan Hale HIGH SENSITIVITYon 01-90-9626WOMIOA0.2 pg/mLNormal 4.0-76.1[facility] on above:Result Comment: CUT-OFF POINTS HAVE BEEN ESTABLISHED BASED ON THE FOURTH UNIVERSAL DEFINITIONS OF MYOCARDIAL INFARCTION. THE UPPER REFERENCE LIMIT (URL) OF TROPONIN, DEFINED THE 99TH PERCENTILE OF cTnI DISTRIBUTION IN A REFERENCE POPULATION, HAS BEEN CONFIRMED THE DECISION THRESHOLD FOR AK DIAGNOSIS.Performed By: #### HSTROPN, TSH, BNP, BMP #### [facility] [address] [address] [address] Ivan Ross RANDOM W/MICROSCOPICon [id number] SEENNormalNONE SEENUniversity Hospitals St. John Medical CenterCommunson [facility] on above:Performed By: #### HSTROPN, TSH, BNP, BMP #### [facility] [address] [address] [address] Ivan Wood Ql (U)NegativeNormalNEGATIVEUniversity Hospitals St. John Medical Center Comment on above:Performed By: #### HSTROPN, TSH, BNP, BMP #### [facility] [address] [address] [address] Ivan Moura SEENNormalNONE SEENUniversity Hospitals St. John Medical CenterCommunson [facility] on above:Performed By: #### HSTROPN, TSH, BNP, BMP #### [facility] [address] [address] [address] Ivan Castro (U)CLEARNormalCLEARThe [facility] HospitalCommunson [facility] on above: Performed By: #### HSTROPN, TSH, BNP, BMP #### [facility] [address] [address] [address] Ivan Sweet (U)LT. YELLOWNormalYELLOWUniversity Hospitals St. John Medical CenterComment on above:Performed By: #### HSTROPN, TSH, BNP, BMP #### [facility] [address] [address] [address] Ivan Bernal LM Nom (Urine sed)NONE SEENNormalNONE SEENUniversity Hospitals St. John Medical CenterComment on above:Performed By: #### HSTROPN, TSH, BNP, BMP #### [facility] [address] [address] [address] Ivan Simmonspithelial cells LM Ql (Urine sed)NONE SEENNormalNONE SEEN /RARE The [facility] HospitalCommunson [facility] on above:Performed By: #### HSTROPN, TSH, BNP, BMP #### [facility] [address] [address] [address] Ivan SeoGlucose Ql (U)1000 mg/dlAbnormalNEGATIVEUniversity Hospitals St. [facility] Medical Center Comment on above:Performed By: #### HSTROPN, TSH, BNP, BMP #### [facility] [address] [address] [address] Ivan SeoHemoglobin Ql (U)NegativermalNEGZanesville City Hospital Comment on above:Performed By: #### HSTROPN, TSH, BNP, BMP #### [facility] [address] [address] [address] Ivan SeoKetones Ql (U)NegativeNormalNEGATIVEUniversity Hospitals St. John Medical CenterCommunson [facility] on above:Performed By: #### HSTROPN, TSH, BNP, BMP #### [facility] [address] [address] [address] Ivan SeoLEUKOCYTESNegativeNormalNEGZanesville City HospitalComment on above:Performed By: #### HSTROPN, TSH, BNP, BMP #### [facility] [address] [address] [address] Ivan SeoMUCOUSNONE SEENNormalNONE SEENUniversity Hospitals St. John Medical CenterCommunson [facility] on above:Performed By: #### HSTROPN, TSH, BNP, BMP #### [facility] [address] [address] [address] Ivan Hadleytrite Ql (U)NegativeNormalNEGATIVECleveland Clinic Foundation on above:Performed By: #### HSTROPN, TSH, BNP, BMP #### [facility] [address] [address] [address] Ivan SeopH (U)6.0 [pH]Normal5-9The [facility] HospitalComment on above: Performed By: #### HSTROPN, TSH, BNP, BMP #### [facility] [address] [place] [address] Dr. Ivan SeoRBCNONE SEENAbnormal0-2The [facility] HospitalComment on above: Performed By: #### HSTROPN, TSH, BNP, BMP #### [facility] [address] [address] [address] Ivan SeoSPEC GRAVITY1.317Ipebfl0.005-<=1.025The [facility] HospitalComment on above:Performed By: #### HSTROPN, TSH, BNP, BMP #### [facility] [address] [place] [address] Dr. Ivan Ross PROTEINNegativeNormalNEGATIVE/ TRACEThe [facility] Comment on above:Performed By: #### HSTROPN, TSH, BNP, BMP #### [facility] [address] [place] [address] Dr. Ivan Yubilinogen Qn (U)0.2 {Teto'U}/dLNormal0.2 - 1.0The [facility] HospitalComment on above:Performed By: #### HSTROPN, TSH, BNP, BMP #### [facility] [address] [place] [address] Dr. Ivan SeoWBCNONE SEENNormalNONE SEENThe [facility] HospitalComment on above: Performed By: #### HSTROPN, TSH, BNP, BMP #### [facility] [address] [place] [address] Dr. Ivan Suazo JORDEN DOP LEG BILon [id number] JORDEN DOP LEG BILEXAM: US JORDEN DOP LEG KANWAL HISTORY: Pulmonary [...] Electronically authenticated by: NORI MCALLISTER Date: 2022-09-11 07:[address] [place], [place] [address]BNPon [id number] peptide B (Bld) [Mass/Vol]138.0 pg/mLNormal<=450.0The [facility] Anderson Hospitalment on above:Performed By: #### HSTROPN, TSH, BNP, BMP #### [facility] [address] [address] [address] Ivan Verma W MANUAL DIFFon [id number] LYMPH #NormalThe [facility] HospitalComment on above:Performed By: #### HSTROPN, TSH, BNP, BMP #### [facility] [address] [address] [address] Ivan SeoATYPICAL LYMPH %NormalThe [facility] HospitalCommunson [facility] on above: Performed By: #### HSTROPN, TSH, BNP, BMP #### [facility] [address] [address] [address] Ivan Dominguez #0.0 103/ulNormal0.0-0.3The [facility] HospitalComment on above:Performed By: #### HSTROPN, TSH, BNP, BMP #### [facility] [address] [address] [address] Ivan Dominguez %0 %Normal0-5The [facility] HospitalComment on above:Performed By: #### HSTROPN, TSH, BNP, BMP #### [facility] [address] [address] [address] Ivan Calderon #0.00 103/ulNormal0.00-0.10The [facility] HospitalComment on above:Performed By: #### HSTROPN, TSH, BNP, BMP #### [facility] [address] [place] [address] Dr. Ivan Calderon %0.0 %Critically low0.2-2.0The [facility] HospitalCommunson [facility] on above:Performed By: #### HSTROPN, TSH, BNP, BMP #### [facility] [address] [place] [address] Dr. Ivan Melton #NormalThe [facility] HospitalComment on above:Performed By: #### HSTROPN, TSH, BNP, BMP #### [facility] [address] [place] [address] Dr. Ivan Melton %NormalThe [facility] HospitalComment on above:Performed By: #### HSTROPN, TSH, BNP, BMP #### [facility] [address] [place] [address] Dr. Ivan SeoCORRECTED WBCNormal4.0-11.0The [facility]Commun[facility] on above: Performed By: #### HSTROPN, TSH, BNP, BMP #### [facility] [address] [place] [address] Dr. Ivan Neal #0.31 103/ulNormal0.00-0.70The [facility] on above:Performed By: #### HSTROPN, TSH, BNP, BMP #### [facility] [address] [place] [address] Dr. Ivan Neal%2.0 %Normal0.9-7.0The [facility]Commun[facility] on above: Performed By: #### HSTROPN, TSH, BNP, BMP #### [facility] [address] [place] [address] Dr. Ivan SeoHCT35.0 %Critically low42.0-54.0The [facility]Commun[facility] on above:Performed By: #### HSTROPN, TSH, BNP, BMP #### [facility] [address] [place] [address] Dr. Ivan SeoHGB11.9 g/dlCritically low14.0-18.0The [facility] HospitalComment on above:Performed By: #### HSTROPN, TSH, BNP, BMP #### [facility] [address] [address] [address] Ivan Jara #0.92 103/ulCritically low1.20-3.80The [facility] Comment on above:Performed By: #### HSTROPN, TSH, BNP, BMP #### [facility] [address] [place] [address] Dr. Ivan Jara%6.0 %Critically low20.5-60.0The [facility] HospitalComment on above:Performed By: #### HSTROPN, TSH, BNP, BMP #### [facility] [address] [place] [address] Dr. Ivan PerdomoH30.7 hrCbdoqu69.9-34.0The [facility] HospitalComment on above: Performed By: #### HSTROPN, TSH, BNP, BMP #### [facility] [address] [place] [address] Dr. Ivan SeoMCHC34.0 g/ljZzpfxy51.9-35.2The [facility] HospitalComment on above:Performed By: #### HSTROPN, TSH, BNP, BMP #### [facility] [address] [place] [address] Dr. Ivan SeoMCV90.2 eKUcbllr88.0-94.0The [facility]Comment on above: Performed By: #### HSTROPN, TSH, BNP, BMP #### [facility] [address] [place] [address] Dr. Ivan MontesOCYTE #NormalThe [facility] HospitalComment on above: Performed By: #### HSTROPN, TSH, BNP, BMP #### [facility] [address] [place] [address] Dr. Ivan MontesOCYTE %NormalThe [facility] HospitalComment on above: Performed By: #### HSTROPN, TSH, BNP, BMP #### [facility] [address] [address] [address] Ivan Vigil#1.38 103/ulCritically high0.30-0.80The [facility] on above:Performed By: #### HSTROPN, TSH, BNP, BMP #### [facility] [address] [address] [address] Ivan Vigil%9.0 %Normal1.7-12.0The [facility] HospitalComment on above: Performed By: #### HSTROPN, TSH, BNP, BMP #### [facility] [address] [place] [address] Dr. Ivan MeléndezV9.2 fLCritically low9.5-13.5The [facility] HospitalComment on above:Performed By: #### HSTROPN, TSH, BNP, BMP #### [facility] [address] [place] [address] Dr. Ivan Ortega #NormalThe [facility] HospitalComment on above:Performed By: #### HSTROPN, TSH, BNP, BMP #### [facility] [address] [place] [address] Dr. Ivan Ortega %NormalThe [facility] HospitalComment on above:Performed By: #### HSTROPN, TSH, BNP, BMP #### [facility] [address] [place] [address] Dr. Ivan QuesadaBCNormalThe [facility] HospitalComment on above:Performed By: #### HSTROPN, TSH, BNP, BMP #### [facility] [address] [place] [address] Dr. Ivan SeoPLT275 103/iiAapavq187-020Tmc [facility] HospitalComment on above: Performed By: #### HSTROPN, TSH, BNP, BMP #### [facility] [address] [place] [address] Dr. Iavn SeoRBC3.88 106/ulCritically low4.70-6.10The [facility] HospitalComment on above:Performed By: #### HSTROPN, TSH, BNP, BMP #### [facility] [address] [address] [address] Ivan HerreraW12.9 %Lgiwqc15.0-15.0The [facility] HospitalComment on above: Performed By: #### HSTROPN, TSH, BNP, BMP #### [facility] [address] [address] [address] Ivan Morris #12.70 103/ulCritically high1.40-6.50The [facility] Comment on above:Performed By: #### HSTROPN, TSH, BNP, BMP #### [facility] [address] [address] [address] Ivan oMrris %83.0 %Critically high43.0-75.0The [facility] HospitalComment on above:Performed By: #### HSTROPN, TSH, BNP, BMP #### [facility] [address] [address] [address] Ivan WashingtonBC15.3 103/ulCritically high4.0-11.0The [facility] HospitalComment on above:Performed By: #### HSTROPN, TSH, BNP, BMP #### [facility] [address] [place] [address] Dr. Ivan Luke CHEST WO W CONon [id number] CHEST WO W CONEXAMINATION: CTA CHEST WO W CON, 09/10/2022 6:46 [...] Electronically authenticated by: JEAN CONDE Date: 2022-09-10 20:03[facility] HospitalC[facility]id-[facility] PCR (CVDTBH)on [id number]-CoV-2 (COVID-19) RNA THONG+probe Ql (Unsp spec)Not detectedNormalNOT DETECTEDThe [facility] Comment on above:Result Comment: When diagnostic testing is negative, the [...] for this test is supported by the [place] of Health and Human Service's declaration that circumstances exist to justify the emergency use of in vitro diagnostics for the detection and/or diagnosis of the virus that causes COVID-19. This EUA will remain in effect for the duration of the COVID-19 declaration justifying emergency of IVDs, unless it is terminated or revoked by the FDA (after which the test may no longer be used).Performed By: #### HSTROPN, TSH, BNP, BMP #### [facility] [address] [place] [address] Dr. Ivan SeoPROF 14(COMP METB)on [id number] [Mass/Vol]3.8 g/dLNormal 3.4-5.0The [facility] HospitalComment on above:Performed By: #### HSTROPN, TSH, BNP, BMP #### [facility] [address] [place] [address] Dr. Ivan SeoAlbumin/Globulin [Mass ratio]1.0 {ratio}NormalThe [facility] HospitalComment on above:Performed By: #### HSTROPN, TSH, BNP, BMP #### [facility] [address] [place] [address] Dr. Ivan Johnson [Catalytic activity/Vol]110 U/BHwvnau54-473Kdq [facility] HospitalComment on above:Performed By: #### HSTROPN, TSH, BNP, BMP #### [facility] [address] [place] [address] Dr. Ivan Phelps [Catalytic activity/Vol]42 U/TSdidcd93-03Nht [facility] HospitalComment on above:Performed By: #### HSTROPN, TSH, BNP, BMP #### [facility] [address] [place] [address] Dr. Ivan [place] gap [Moles/Vol]12.9 mmol/LNormalThe [facility] Comment on above:Performed By: #### HSTROPN, TSH, BNP, BMP #### [facility] [address] [place] [address] Dr. Ivan SeoAST [Catalytic activity/Vol]15 U/VHkrbtn63-44Dxa [facility] HospitalComment on above:Performed By: #### HSTROPN, TSH, BNP, BMP #### [facility] [address] [place] [address] Dr. Ivan SeoBilirubin [Mass/Vol]0.8 mg/dLNormal0.2-1.0The [facility] Comment on above:Performed By: #### HSTROPN, TSH, BNP, BMP #### [facility] [address] [place] [address] Dr. Ivan SeoCalcium [Mass/Vol]9.2 mg/dLNormal8.5-10.1[facility] Comment on above:Performed By: #### HSTROPN, TSH, BNP, BMP #### [facility] [address] [place] [address] Dr. Ivan SeoChloride [Moles/Vol]103 mmol/CNraskn78-051Ywr [facility] Comment on above:Performed By: #### HSTROPN, TSH, BNP, BMP #### [facility] [address] [place] [address] Dr. Ivan SeoCO2 [Moles/Vol]26.6 mmol/JYtrdtc88.0-32.0The [facility] Comment on above:Performed By: #### HSTROPN, TSH, BNP, BMP #### [facility] [address] [place] [address] Dr. Ivan SeoCreatinine [Mass/Vol]0.84 mg/dLNormal0.70-1.30The [facility] HospitalComment on above:Performed By: #### HSTROPN, TSH, BNP, BMP #### [facility] [address] [place] [address] Dr. Ivan SimmonsGFR-AF ERITREAN>60Normal>=60The [facility] HospitalComment on above:Performed By: #### HSTROPN, TSH, BNP, BMP #### [facility] [address] [place] [address] Dr. Ivan SimmonsGFR-NON AF ERITREAN>60Normal>=60The [facility] HospitalComment on above:Performed By: #### HSTROPN, TSH, BNP, BMP #### [facility] [address] [address] [address] Ivan SeoGlobulin (S) [Mass/Vol]3.9 g/dLNormSelect Medical Specialty Hospital - ColumbusComment on above:Performed By: #### HSTROPN, TSH, BNP, BMP #### [facility] [address] [address] [address] Ivan SeoGlucose [Mass/Vol]111 mg/dLCritically vauy54-706Ugf [facility] HospitalComment on above:Performed By: #### HSTROPN, TSH, BNP, BMP #### [facility] [address] [place] [address] Dr. Ivan SeoPotassium [Moles/Vol]3.5 mmol/LNormal3.5-5.1The [facility] Comment on above:Performed By: #### HSTROPN, TSH, BNP, BMP #### [facility] [address] [place] [address] Dr. Ivan SeoProtein [Mass/Vol]7.7 g/dLNormal6.4-8.2The [facility] Comment on above:Performed By: #### HSTROPN, TSH, BNP, BMP #### [facility] [address] [place] [address] Dr. Ivan SeoSodium [Moles/Vol]139 mmol/JMkiwpj389-240FjnUniversity Hospitals St. [facility] Comment on above:Performed By: #### HSTROPN, TSH, BNP, BMP #### [facility] [address] [place] [address] Dr. Ivan SeoUrea nitrogen [Mass/Vol]11.0 mg/dLNormal7.0-18.0The [facility] HospitalComment on above:Performed By: #### HSTROPN, TSH, BNP, BMP #### [facility] [address] [place] [address] Dr. Ivan SeoUrea nitrogen/Creatinine [Mass ratio]13.1 mg/mgNoSamaritan HospitalComment on above:Performed By: #### HSTROPN, TSH, BNP, BMP #### [facility] [address] [place] [address] Dr. Ivan SeoPROTIMEon [id number] Coag (PPP) [Relative time]1.08 {INR} NormalThe [facility] HospitalComment on above:Performed By: #### HSTROPN, TSH, BNP, BMP #### [facility] [address] [place] [address] Dr. Ivan Araujo GUIDELINESSEE BELOWNormalThAdena Regional Medical CenterComment on above:Result Comment: DESIRED INR: 2.0 - 3.0 CONDITIONS NOT LISTED BELOW 2.5 - 3.5 FOR PROSTHETIC HEART VALVE REPLACEMENT 2.5 - 3.5 RECURRENT THROMBOSIS Performed By: #### HSTROPN, TSH, BNP, BMP #### [facility] [address] [place] [address] Dr. Ivan SeoPT Coag (PPP) [Time]11.4 sNormal9.0-11.6The [facility] Comment on above:Performed By: #### HSTROPN, TSH, BNP, BMP #### [facility] [address] [place] [address] Dr. Ivan Edward [id number] Coag (Bld) [Time]29.9 jJlajzp60.3-36.2The [facility] HospitalComment on above:Performed By: #### HSTROPN, TSH, BNP, BMP #### [facility] [address] [place] [address] Dr. Ivan Hale, HIGH SENSITIVITYon 93-61-3044MKROYU63.9 pg/mLNormal 4.0-76.1[facility] CenterCommunson healthcare [facility] on above:Result Comment: CUT-OFF POINTS HAVE BEEN ESTABLISHED BASED ON THE FOURTH UNIVERSAL DEFINITIONS OF MYOCARDIAL INFARCTION. THE UPPER REFERENCE LIMIT (URL) OF TROPONIN, DEFINED THE 99TH PERCENTILE OF cTnI DISTRIBUTION IN A REFERENCE POPULATION, HAS BEEN CONFIRMED THE DECISION THRESHOLD FOR [place] DIAGNOSIS.Performed By: #### HSTROPN, TSH, BNP, BMP #### [facility] [address] [place] [address] Dr. Ivan Tysond-19 PCR (CVDTBH)on [id number]-CoV-2 (COVID-19) RNA THONG+probe Ql (Unsp spec)Not detectedNormalNOT DETECTEDThe [facility] Comment on above:Result Comment: When diagnostic testing is negative, the [...] for this test is supported by the [place] of Health and Human Service's declaration that circumstances exist to justify the emergency use of in vitro diagnostics for the detection and/or diagnosis of the virus that causes COVID-19. This EUA will remain in effect for the duration of the COVID-19 declaration justifying emergency of IVDs, unless it is terminated or revoked by the FDA (after which the test may no longer be used).Performed By: #### HSTROPN, TSH, BNP, BMP #### [facility] [address] [address] [address] Ivan Kay STRESS/REST MULTIon [id number] STRESS/REST MULTIPatient: SUJATA REYNA Exam Date: 08/27/2022 : 1975 Gender:M Ordering : DR JOSH BACH . Admission #: [id number] Family : Order #: [id number] CLICK HERE TO VIEW EXAM RADIOLOGY REPORT [...] anteroseptal. Basal inferoseptal. Basal inferior. Mid-inferoseptal. Mid-inferior. [place]. SIZE: Large (5 or more segments). SEVERITY: [...] by: Teressa Bridges MD on 08/27/2022 at 15:55NormalThAdena Regional Medical CenterCBC AUTO DIFFon [id number] #0.0 103/ulNormal0.0-0.1[facility] Medical CenterComment on above:Performed By: #### MG, BMP #### [facility] [address] [place] [address] Dr. Ivan Torresophils/100 WBC (Bld)0.5 %Normal0.2-2.0[facility] Comment on above:Performed By: #### MG, BMP #### [facility] [address] [place] [address] Dr. Ivan Fried #0.2 103/ulNormal0.0-0.7ThAdena Regional Medical CenterComment on above: Performed By: #### MG, BMP #### [facility] [address] [place] [address] Dr. Ivan Simmonsosinophils/100 WBC (Bld)2.9 %Normal0.9-7.0[facility] Comment on above:Performed By: #### MG, BMP #### [facility] [address] [place] [address] Dr. Ivan Simmonsrythrocyte distribution width (RBC) [Ratio]13.0 %Znlsje20.0-15.0 The [facility] Hospitalment on above:Performed By: #### MG, BMP #### [facility] [address] [place] [address] Dr. Ivan SeoHematocrit (Bld) [Volume fraction]41.4 %Critically low42.0-54.0 The [facility] HospitalComment on above:Performed By: #### MG, BMP #### [facility] [address] [place] [address] Dr. Ivan SeoHemoglobin (Bld) [Mass/Vol]13.9 g/dLCritically low14.0-18.0The [facility] Hospitalment on above:Performed By: #### MG, BMP #### [facility] [address] [place] [address] Dr. Ivan Ventura #0.04 10e3/ulCritically high0.00-0.03The [facility] Comment on above:Performed By: #### MG, BMP #### [facility] [address] [place] [address] Dr. Ivan Ventura %0.5 %Normal0.0-0.5The [facility] Hospitalment on above: Performed By: #### MG, BMP #### [facility] [address] [place] [address] Dr. Ivan Santos #2.2 103/ulNormal1.2-3.8The [facility] HospitalCommun[facility] on above:Performed By: #### MG, BMP #### [facility] [address] [place] [address] Dr. Ivan Mendozahocytes/100 WBC (Bld)29.2 %Nlujug66.5-60.0The [facility] Hospitalment on above:Performed By: #### MG, BMP #### [facility] [address] [place] [address] Dr. Ivan ZabalaUAL DIFF REQNONormalThe [facility] HospitalComment on above: Performed By: #### MG, BMP #### [facility] [address] [place] [address] Dr. Ivan Perdomo (RBC) [Entitic mass]30.5 wnDzpoiq69.9-34.0The [facility] HospitalComment on above:Performed By: #### MG, BMP #### [facility] [address] [place] [address] Dr. Ivan Perdomo (RBC) [Mass/Vol]33.6 g/lSMwurwk09.9-35.2The [facility] HospitalComment on above:Performed By: #### MG, BMP #### [facility] [address] [place] [address] Dr. Ivan Perdomo (RBC) [Entitic vol]91.0 dOHcshgi09.0-94.0The [facility] HospitalComment on above:Performed By: #### MG, BMP #### [facility] [address] [place] [address] Dr. Ivan Neumann #0.8 103/ulNormal0.3-0.8The [facility] HospitalComment on above:Performed By: #### MG, BMP #### [facility] [address] [place] [address] Dr. Ivan Villanuevaocytes/100 WBC (Bld)10.5 %Normal1.7-12.0The [facility] Comment on above:Performed By: #### MG, BMP #### [facility] [address] [place] [address] Dr. Ivan Pastor #4.3 103/ulNormal1.4-6.5The [facility] HospitalComment on above:Performed By: #### MG, BMP #### [facility] [address] [place] [address] Dr. Ivan Martinutrophils/100 WBC (Bld)56.4 %Kbeubz44.0-75.0The [facility] HospitalComment on above:Performed By: #### MG, BMP #### [facility] [address] [place] [address] Dr. Ivan Belllet mean volume (Bld) [Entitic vol]9.3 fLCritically low 9.5-13.5The [facility] HospitalComment on above:Performed By: #### MG, BMP #### [facility] [address] [place] [address] Dr. Ivan SeoPLT264 103/ptCtmryv478-431Ynb [facility] HospitalComment on above: Performed By: #### MG, BMP #### [facility] [address] [place] [address] Dr. Ivan SeoRBC4.55 106/ulCritically low4.70-6.10The [facility] HospitalComment on above:Performed By: #### MG, BMP #### [facility] [address] [place] [address] Dr. Ivan SeoWBC7.7 103/ulNormal4.0-11.0The [facility] HospitalComment on above: Performed By: #### MG, BMP #### [facility] [address] [place] [address] Dr. Ivan SeoMAGNESIUMon 70-27-5266Jianfhzct [Mass/Vol]2.0 mg/dLNormal1.8-2.4 The [facility] HospitalComment on above:Performed By: #### MG, BMP #### [facility] [address] [place] [address] Dr. Ivan SeoPROF CHEM 8 (BAS METB)on 11-93-0161Rskxk gap [Moles/Vol]12.9 mmol/LNormalThe [facility] HospitalComment on above:Performed By: #### MG, BMP #### [facility] [address] [place] [address] Dr. Ivan SeoCalcium [Mass/Vol]9.0 mg/dLNormal8.5-10.1The [facility] Comment on above:Performed By: #### MG, BMP #### [facility] [address] [place] [address] Dr. Ivan SeoChloride [Moles/Vol]104 mmol/AZqhkxt58-226Psf [facility] Comment on above:Performed By: #### MG, BMP #### [facility] [address] [address] [address] Ivan SeoCO2 [Moles/Vol]24.9 mmol/IZzadtv93.0-32.0The [facility] Comment on above:Performed By: #### MG, BMP #### [facility] [address] [address] [address] Ivan SeoCreatinine [Mass/Vol]0.82 mg/dLNormal0.70-1.30The [facility] HospitalComment on above:Performed By: #### MG, BMP #### [facility] [address] [address] [address] Ivan SimmonsGFR-AF ERITREAN>60Normal>=60The [facility] HospitalComment on above:Performed By: #### MG, BMP #### [facility] [address] [place] [address] Dr. Ivan SimmonsGFR-NON AF ERITREAN>60Normal>=60The [facility] HospitalComment on above:Performed By: #### MG, BMP #### [facility] [address] [address] [address] Ivan SeoGlucose [Mass/Vol]94 mg/cTMcyvvr73-407Cel [facility] Comment on above:Performed By: #### MG, BMP #### [facility] [address] [address] [address] Ivan SeoPotassium [Moles/Vol]3.8 mmol/LNormal3.5-5.1The [facility] Comment on above:Performed By: #### MG, BMP #### [facility] [address] [address] [address] Ivan SeoSodium [Moles/Vol]138 mmol/LPfdxki386-906Mut [facility] Comment on above:Performed By: #### MG, BMP #### [facility] [address] [address] [address] Ivan eSoUrea nitrogen [Mass/Vol]11.0 mg/dLNormal7.0-18.0The [facility] HospitalComment on above:Performed By: #### MG, BMP #### [facility] [address] [place] [address] Dr. Ivan Lundberg nitrogen/Creatinine [Mass ratio]13.4 mg/mgNoalThe [facility] HospitalComment on above:Performed By: #### MG, BMP #### [facility] [address] [place] [address] Dr. Ivan Hale, HIGH SENSITIVITYon 37-98-0320LDXQSW4.3 pg/mLNormal 4.0-76.1The [facility] HospitalComment on above:Result Comment: CUT-OFF POINTS HAVE BEEN ESTABLISHED BASED ON THE FOURTH UNIVERSAL DEFINITIONS OF MYOCARDIAL INFARCTION. THE UPPER REFERENCE LIMIT (URL) OF TROPONIN, DEFINED THE 99TH PERCENTILE OF cTnI DISTRIBUTION IN A REFERENCE POPULATION, HAS BEEN CONFIRMED THE DECISION THRESHOLD FOR [place] DIAGNOSIS.Performed By: #### HSTROPN, TSH, BNP, BMP #### [facility] [address] [place] [address] Dr. Ivan Wells EDWARDO 3-6on [id number] [Catalytic activity/Vol]110 U/L Mxbhwd28-394Wud [facility] HospitalComment on above:Performed By: #### HSTROPN, TSH, BNP, BMP #### [facility] [address] [place] [address] Dr. Ivan Lee.MB [Mass/Vol]0.77 ng/mLNormal<=3.60The [facility] Comment on above:Performed By: #### HSTROPN, TSH, BNP, BMP #### [facility] [address] [place] [address] Dr. Ivan SeoHSTROP6.1 pg/mLNormal4.0-76.1[facility] on above:Result Comment: CUT-OFF POINTS HAVE BEEN ESTABLISHED BASED ON THE FOURTH UNIVERSAL DEFINITIONS OF MYOCARDIAL INFARCTION. THE UPPER REFERENCE LIMIT (URL) OF TROPONIN, DEFINED THE 99TH PERCENTILE OF cTnI DISTRIBUTION IN A REFERENCE POPULATION, HAS BEEN CONFIRMED THE DECISION THRESHOLD FOR [place] DIAGNOSIS.Performed By: #### HSTROPN, TSH, BNP, BMP #### [facility] [address] [place] [address] Dr. Ivan Lee [Catalytic activity/Vol]113 U/JBgyztw21-853Zqy [facility] HospitalComment on above:Performed By: #### HSTROPN, TSH, BNP, BMP #### [facility] [address] [place] [address] Dr. Ivan Lee.MB [Mass/Vol]0.62 ng/mLNormal<=3.60The [facility] Comment on above:Performed By: #### HSTROPN, TSH, BNP, BMP #### [facility] [address] [place] [address] Dr. Ivan SeoHSTROP7.4 pg/mLNormal4.0-76.1The [facility] HospitalComment on above:Result Comment: CUT-OFF POINTS HAVE BEEN ESTABLISHED BASED ON THE FOURTH UNIVERSAL DEFINITIONS OF MYOCARDIAL INFARCTION. THE UPPER REFERENCE LIMIT (URL) OF TROPONIN, DEFINED THE 99TH PERCENTILE OF cTnI DISTRIBUTION IN A REFERENCE POPULATION, HAS BEEN CONFIRMED THE DECISION THRESHOLD FOR [place] DIAGNOSIS.Performed By: #### HSTROPN, TSH, BNP, BMP #### [facility] [address] [place] [address] Dr. Ivan Verma AUTO DIFFon [id number] #0.0 103/ulNormal0.0-0.1[facility] CenterComment on above:Performed By: #### HSTROPN, TSH, BNP, BMP #### [facility] [address] [place] [address] Dr. Ivan SeoBasophils/100 WBC (Bld)0.5 %Normal0.2-2.0The [facility] Comment on above:Performed By: #### HSTROPN, TSH, BNP, BMP #### [facility] [address] [place] [address] Dr. Ivan Fried #0.2 103/ulNormal0.0-0.7The [facility] HospitalComment on above: Performed By: #### HSTROPN, TSH, BNP, BMP #### [facility] [address] [place] [address] Dr. Yilan ChangEosinophils/100 WBC (Bld)2.9 %Normal0.9-7.0[facility] Comment on above:Performed By: #### HSTROPN, TSH, BNP, BMP #### [facility] [address] [place] [address] Dr. Ivan Simmonsrythrocyte distribution width (RBC) [Ratio]12.7 %Nnszcu60.0-15.0 The [facility] HospitalComment on above:Performed By: #### HSTROPN, TSH, BNP, BMP #### [facility] [address] [place] [address] Dr. Ivan SeoHematocrit (Bld) [Volume fraction]40.2 %Critically low42.0-54.[address] [facility] CenterComment on above:Performed By: #### HSTROPN, TSH, BNP, BMP #### [facility] [address] [place] [address] Dr. Ivan SeoHemoglobin (Bld) [Mass/Vol]13.6 g/dLCritically low14.0-18.0The [facility] HospitalComment on above:Performed By: #### HSTROPN, TSH, BNP, BMP #### [facility] [address] [place] [address] Dr. Ivan Ventura #0.06 10e3/ulCritically high0.00-0.03[facility] Comment on above:Performed By: #### HSTROPN, TSH, BNP, BMP #### [facility] [address] [place] [address] Dr. Ivan Ventura %0.8 %Critically high0.0-0.5The [facility] HospitalComment on above:Performed By: #### HSTROPN, TSH, BNP, BMP #### [facility] [address] [place] [address] Dr. Ivan Santos #2.0 103/ulNormal1.2-3.8The [facility] HospitalComment on above:Performed By: #### HSTROPN, TSH, BNP, BMP #### [facility] [address] [place], [place] [id number] Dr. Ivan Zavalamphocytes/100 WBC (Bld)26.9 %Dmtevp59.5-60.0The [facility] HospitalComment on above:Performed By: #### HSTROPN, TSH, BNP, BMP #### [facility] [address] [place] [address] Dr. Ivan ZabalaUAL DIFF REQNONormalThe [facility] HospitalComment on above: Performed By: #### HSTROPN, TSH, BNP, BMP #### [facility] [address] [place] [address] Dr. Ivan Perdomo (RBC) [Entitic mass]30.4 drMewmur42.9-34.0The [facility] HospitalComment on above:Performed By: #### HSTROPN, TSH, BNP, BMP #### [facility] [address] [place] [address] Dr. Ivan Perdomo (RBC) [Mass/Vol]33.8 g/kAGucbqz77.9-35.2The [facility] HospitalComment on above:Performed By: #### HSTROPN, TSH, BNP, BMP #### [facility] [address] [place] [address] Dr. Ivan Perdomo (RBC) [Entitic vol]89.9 zOPcnlvc90.0-94.0The [facility] HospitalComment on above:Performed By: #### HSTROPN, TSH, BNP, BMP #### [facility] [address] [place] [address] Dr. Ivan Neumann #0.8 103/ulNormal0.3-0.8The [facility] HospitalComment on above:Performed By: #### HSTROPN, TSH, BNP, BMP #### [facility] [address] [place] [address] Dr. Ivan Villanuevaocytes/100 WBC (Bld)9.9 %Normal1.7-12.0[facility] Comment on above:Performed By: #### HSTROPN, TSH, BNP, BMP #### [facility] [address] [place] [address] Dr. Ivan Pastor #4.5 103/ulNormal1.4-6.5The [facility] HospitalComment on above:Performed By: #### HSTROPN, TSH, BNP, BMP #### [facility] [address] [place] [address] Dr. Ivan Martinutrophils/100 WBC (Bld)59.0 %Pmdwgy74.0-75.0The [facility] HospitalComment on above:Performed By: #### HSTROPN, TSH, BNP, BMP #### [facility] [address] [place] [address] Dr. Ivan Cannon mean volume (Bld) [Entitic vol]9.1 fLCritically low 9.5-13.5The [facility] HospitalComment on above:Performed By: #### HSTROPN, TSH, BNP, BMP #### [facility] [address] [place] [address] Dr. Ivan SeoPLT245 103/rcByscii815-223Jqc [facility] HospitalComment on above: Performed By: #### HSTROPN, TSH, BNP, BMP #### [facility] [address] [place] [address] Dr. Ivan SeoRBC4.47 106/ulCritically low4.70-6.10[facility] on above:Performed By: #### HSTROPN, TSH, BNP, BMP #### [facility] [address] [place] [address] Dr. Ivan SeoWBC7.6 103/ulNormal4.0-11.0The [facility] HospitalComment on above: Performed By: #### HSTROPN, TSH, BNP, BMP #### [facility] [address] [place] [address] Dr. Ivan SeoDRUG SCREEN RAPID (URINE)on [id number]C The [facility] HospitalComment on above:Performed By: #### HSTROPN, TSH, BNP, BMP #### [facility] [address] [address] [address] Ivan SeoBARNegativeNormalNEGATIVEUniversity Hospitals St. John Medical CenterComment on above: Performed By: #### HSTROPN, TSH, BNP, BMP #### [facility] [address] [place] [address] Dr. Ivan AhnPNegativeNormalNEGATIVEUniversity Hospitals St. John Medical CenterComment on above: Performed By: #### HSTROPN, TSH, BNP, BMP #### [facility] [address] [place] [address] Dr. Ivan SeoBZONegativeNormalNEGATIVECleveland Clinic Foundation on above: Performed By: #### HSTROPN, TSH, BNP, BMP #### [facility] [address] [place] [address] Dr. Ivan ClaudioCNegativeNormalNEGATIVECleveland Clinic Foundation on above: Performed By: #### HSTROPN, TSH, BNP, BMP #### [facility] [address] [place] [address] Dr. Ivan LawsonHighland District HospitalComment on above: Result Comment: AMP (Amphetamine): 500ng/mL, BAR (Barbituates): 200 ng/mL, BZO (Benzodiazepines): 150 ng/mL, BUP (Buprenorphine): 10 ng/mL, VONNIE (Cocaine): 150 ng/mL, mAMP (Methamphetamine): 500 ng/mL, MTD (Methadone): 200 ng/mL, OPI (Opiates): 100 ng/mL, OXY (Oxycodone): 100 ng/mL, PCP (Phencyclidine): 25 ng/mL, PPX (Propoxyphene): 300 ng/mL, THC (Cannabinoids): 50 ng/mL, TCA (Trycyclic Antidepressants): 300 ng/mLPerformed By: #### HSTROPN, TSH, BNP, BMP #### [facility] [address] [place] [address] Dr. Ivan SeoDRUG CUT HEADERDRUG CLASS TEST SYSTEM CUT-OFF CONCENTRATIONS ARE FOLLOWS:NormalThe [facility] HospitalComment on above:Performed By: #### HSTROPN, TSH, BNP, BMP #### [facility] [address] [address] [address] Ivan SeomAMPNegativeNormalNEGATIVEUniversity Hospitals St. John Medical CenterCommunson healthcare [facility] on above: Performed By: #### HSTROPN, TSH, BNP, BMP #### [facility] [address] [address] [address] Ivan SeoMTDNegativeNormalNEGATIVEUniversity Hospitals St. John Medical CenterComment on above: Performed By: #### HSTROPN, TSH, BNP, BMP #### [facility] [address] [address] [address] Ivan CristinaINegativeNormalNEGZanesville City HospitalCommunson healthcare [facility] on above: Performed By: #### HSTROPN, TSH, BNP, BMP #### [facility] [address] [address] [address] Ivan SeoOXYNegativeNormalNEGZanesville City HospitalCommunson healthcare [facility] on above: Performed By: #### HSTROPN, TSH, BNP, BMP #### [facility] [address] [address] [address] Ivan SeoPCPNegativeNormalNEGZanesville City HospitalCommunson healthcare [facility] on above: Performed By: #### HSTROPN, TSH, BNP, BMP #### [facility] [address] [address] [address] Ivan SeoPPXNegativeNormalNEGATIVEUniversity Hospitals St. John Medical CenterComment on above: Performed By: #### HSTROPN, TSH, BNP, BMP #### [facility] [address] [address] [address] Ivan SeoTCANegativeNormalNEGATIVEUniversity Hospitals St. John Medical CenterCommunson healthcare [facility] on above: Performed By: #### HSTROPN, TSH, BNP, BMP #### [facility] [address] [address] [address] Ivan SeoTHCNegativeNormalNEGATIVEUniversity Hospitals St. John Medical CenterComment on above: Performed By: #### HSTROPN, TSH, BNP, BMP #### [facility] [address] [address] [address] Ivan CallejasCARDIO M/2D COMPLETEon [id number] M/2D COMPLETE Patient: SUJATA REYNA Exam Date: 08/19/2022 : 1975 Gender:M Ordering : DR JOSH BACH . Admission #: [id number] Family : Order #: [id number] CLICK HERE TO VIEW EXAM ECHOCARDIOGRAM REPORT [...] by: Puja Colon M.D. on 08/19/2022 at 12:34[facility]. Mary HospitalLIPID PROFILEon [id number]-HDL RATIO NORMSZanesville City HospitalComment on above:Result Comment: 3.3 - 4.4 LOW RISK 4.4 - 7.1 AVERAGE RISK 7.1 - 11.0 MODERATE RISK >11.0 HIGH RISKPerformed By: #### HSTROPN, TSH, BNP, BMP #### [facility] [address] [address] [address] Ivan Guevaraesterol [Mass/Vol]213 mg/dLCritically high<=200[facility] on above:Performed By: #### HSTROPN, TSH, BNP, BMP #### [facility] [address] [address] [address] Ivan SeoCholesterol in HDL [Mass/Vol]40 mg/iGXduknj87-39Jqx [facility] HospitalCommun[facility] on above:Performed By: #### HSTROPN, TSH, BNP, BMP #### [facility] [address] [place] [address] Dr. Ivan Guevaraestersumi in LDL [Mass/Vol]147.0 mg/dLMount St. Mary HospitalCommunson healthcare [facility] on above:Performed By: #### HSTROPN, TSH, BNP, BMP #### [facility] [address] [address] [address] Ivan Good.total/Cholesterol in HDL [Mass ratio]5.3 {ratio} NormalThe [facility] on above:Performed By: #### HSTROPN, TSH, BNP, BMP #### [facility] [address] [place] [address] Dr. Ivan Dickinson NORMAL> or = 60 mg/dl - LOW CARDIOVASCULAR RISK <40 mg/dl - HIGH CARDIOVASCULAR RISKRegency Hospital Toledo on above:Performed By: #### HSTROPN, TSH, BNP, BMP #### [facility] [address] [address] [address] Ivan Ozuna CALC NORMALSEE BELOWMount St. Mary HospitalCommunson healthcare [facility] on above:Result Comment: <100 mg/dl OPTIMAL 100 - 129 mg/dl NEAR OR ABOVE OPTIMAL 130 - 159 mg/dl BORDERLINE HIGH 160 - 189 mg/dl HIGH >190 mg/dl VERY HIGH Performed By: #### HSTROPN, TSH, BNP, BMP #### [facility] [address] [place] [address] Dr. Yilan ChangTriglyceride [Mass/Vol]130 mg/dLNormal<=150[facility] Comment on above:Performed By: #### HSTROPN, TSH, BNP, BMP #### [facility] [address] [place] [address] Dr. Ivan SeoVLDL CALC26.0 mg/dLNormalThe [facility] HospitalComment on above: Performed By: #### HSTROPN, TSH, BNP, BMP #### [facility] [address] [place] [address] Dr. Ivan SeoMAGNESIUMon [id number] [Mass/Vol]2.0 mg/dLNormal1.8-2.4 The [facility] HospitalComment on above:Performed By: #### HSTROPN, TSH, BNP, BMP #### [facility] [address] [place] [address] Dr. Ivan SeoPROF CHEM 8 (BAS METB)on [id number] gap [Moles/Vol]12.5 mmol/LNormalUniversity Hospitals St. John Medical CenterComment on above:Performed By: #### HSTROPN, TSH, BNP, BMP #### [facility] [address] [place] [address] Dr. Ivan SeoCalcium [Mass/Vol]8.8 mg/dLNormal8.5-10.1[facility] Comment on above:Performed By: #### HSTROPN, TSH, BNP, BMP #### [facility] [address] [place] [address] Dr. Ivan SeoChloride [Moles/Vol]104 mmol/NCeyrtx24-824KtyUniversity Hospitals St. John Medical Center Comment on above:Performed By: #### HSTROPN, TSH, BNP, BMP #### [facility] [address] [place] [address] Dr. Ivan SeoCO2 [Moles/Vol]26.4 mmol/QQtppyg88.0-32.0[facility] Comment on above:Performed By: #### HSTROPN, TSH, BNP, BMP #### [facility] [address] [place] [address] Dr. Ivan Morinatinine [Mass/Vol]0.89 mg/dLNormal0.70-1.30The [facility] HospitalComment on above:Performed By: #### HSTROPN, TSH, BNP, BMP #### [facility] [address] [place] [address] Dr. Ivan SimmonsGFR-AF ERITREAN>60Normal>=60The [facility] HospitalComment on above:Performed By: #### HSTROPN, TSH, BNP, BMP #### [facility] [address] [place] [address] Dr. Ivan SimmonsGFR-NON AF ERITREAN>60Normal>=60The [facility] HospitalComment on above:Performed By: #### HSTROPN, TSH, BNP, BMP #### [facility] [address] [place] [address] Dr. Ivan SeoGlucose [Mass/Vol]103 mg/lHOnsele14-096Eqy [facility] Comment on above:Performed By: #### HSTROPN, TSH, BNP, BMP #### [facility] [address] [place] [address] Dr. Ivan SeoPotassium [Moles/Vol]3.9 mmol/LNormal3.5-5.1[facility] Comment on above:Performed By: #### HSTROPN, TSH, BNP, BMP #### [facility] [address] [place] [address] Dr. Ivan Khandium [Moles/Vol]139 mmol/RRvqrba401-238VdhUniversity Hospitals St. John Medical Center Comment on above:Performed By: #### HSTROPN, TSH, BNP, BMP #### [facility] [address] [place] [address] Dr. Ivan SeoUrea nitrogen [Mass/Vol]12.0 mg/dLNormal7.0-18.0The [facility] HospitalComment on above:Performed By: #### HSTROPN, TSH, BNP, BMP #### [facility] [address] [place] [address] Dr. Ivan Lundberg nitrogen/Creatinine [Mass ratio]13.5 mg/mgNormalThe [facility] HospitalComment on above:Performed By: #### HSTROPN, TSH, BNP, BMP #### [facility] [address] [place] [address] Dr. Ivan Juarez [id number] peptide B (Bld) [Mass/Vol]77.0 pg/mL Normal<=450.0The [facility] HospitalComment on above:Performed By: #### HSTROPN, TSH, BNP, BMP #### [facility] [address] [place] [address] Dr. Ivan OsorioC AUTO DIFFon [id number] #0.0 103/ulNormal0.0-0.1The [facility] HospitalComment on above:Performed By: #### HSTROPN, TSH, BNP, BMP #### [facility] [address] [place] [address] Dr. Ivan SeoBasophils/100 WBC (Bld)0.4 %Normal0.2-2.0[facility] Comment on above:Performed By: #### HSTROPN, TSH, BNP, BMP #### [facility] [address] [place] [address] Dr. Ivan Fried #0.2 103/ulNormal0.0-0.7The [facility] HospitalComment on above: Performed By: #### HSTROPN, TSH, BNP, BMP #### [facility] [address] [place] [address] Dr. Ivan Simmonsosinophils/100 WBC (Bld)2.7 %Normal0.9-7.0[facility] Comment on above:Performed By: #### HSTROPN, TSH, BNP, BMP #### [facility] [address] [place] [address] Dr. Ivan Simmonsrythrocyte distribution width (RBC) [Ratio]12.7 %Hvtmvs00.0-15.0 The [facility] HospitalComment on above:Performed By: #### HSTROPN, TSH, BNP, BMP #### [facility] [address] [place] [address] Dr. Ivan SeoHematocrit (Bld) [Volume fraction]39.8 %Critically low42.0-54.0 The [facility] HospitalComment on above:Performed By: #### HSTROPN, TSH, BNP, BMP #### [facility] [address] [place] [address] Dr. Ivan SeoHemoglobin (Bld) [Mass/Vol]13.9 g/dLCritically low14.0-18.0The [facility] HospitalComment on above:Performed By: #### HSTROPN, TSH, BNP, BMP #### [facility] [address] [place] [address] Dr. Ivan Ventura #0.04 10e3/ulCritically high0.00-0.03[facility] Comment on above:Performed By: #### HSTROPN, TSH, BNP, BMP #### [facility] [address] [place] [address] Dr. Ivan Ventura %0.5 %Normal0.0-0.5The [facility] HospitalComment on above: Performed By: #### HSTROPN, TSH, BNP, BMP #### [facility] [address] [place] [address] Dr. Ivan Santos #2.4 103/ulNormal1.2-3.8The [facility] HospitalComment on above:Performed By: #### HSTROPN, TSH, BNP, BMP #### [facility] [address] [place] [address] Dr. Ivan Mendozahocytes/100 WBC (Bld)29.4 %Smxgmz81.5-60.0The [facility] HospitalComment on above:Performed By: #### HSTROPN, TSH, BNP, BMP #### [facility] [address] [place] [address] Dr. Ivan ZabalaUAL DIFF REQNONormalThe [facility] HospitalComment on above: Performed By: #### HSTROPN, TSH, BNP, BMP #### [facility] [address] [place] [address] Dr. Ivan Perdomo (RBC) [Entitic mass]31.1 okXobhmk41.9-34.0The [facility] HospitalComment on above:Performed By: #### HSTROPN, TSH, BNP, BMP #### [facility] [address] [place] [address] Dr. Ivan Perdomo (RBC) [Mass/Vol]34.9 g/eUZtzfzy00.9-35.2The [facility] HospitalComment on above:Performed By: #### HSTROPN, TSH, BNP, BMP #### [facility] [address] [place] [address] Dr. Ivan Perdomo (RBC) [Entitic vol]89.0 jGQzfxaj28.0-94.0The [facility] HospitalComment on above:Performed By: #### HSTROPN, TSH, BNP, BMP #### [facility] [address] [place] [address] Dr. Ivan Neumann #0.8 103/ulNormal0.3-0.8The [facility] HospitalComment on above:Performed By: #### HSTROPN, TSH, BNP, BMP #### [facility] [address] [place] [address] Dr. Ivan Villanuevaocytes/100 WBC (Bld)9.4 %Normal1.7-12.0[facility] Comment on above:Performed By: #### HSTROPN, TSH, BNP, BMP #### [facility] [address] [place] [address] Dr. Ivan Patsor #4.8 103/ulNormal1.4-6.5The [facility] HospitalComment on above:Performed By: #### HSTROPN, TSH, BNP, BMP #### [facility] [address] [place] [address] Dr. Ivan Martinutrophils/100 WBC (Bld)57.6 %Lyyqrr84.0-75.0The [facility] HospitalComment on above:Performed By: #### HSTROPN, TSH, BNP, BMP #### [facility] [address] [place] [address] Dr. Ivan SeoPlatelet mean volume (Bld) [Entitic vol]9.2 fLCritically low 9.5-13.5The [facility] HospitalComment on above:Performed By: #### HSTROPN, TSH, BNP, BMP #### [facility] [address] [place] [address] Dr. Ivan SeoPLT262 103/duDyhobo750-704Klg [facility] HospitalComment on above: Performed By: #### HSTROPN, TSH, BNP, BMP #### [facility] [address] [place] [address] Dr. Ivan SeoRBC4.47 106/ulCritically low4.70-6.10The [facility] HospitalComment on above:Performed By: #### HSTROPN, TSH, BNP, BMP #### [facility] [address] [place] [address] Dr. Ivan SeoWBC8.3 103/ulNormal4.0-11.0The [facility] HospitalComment on above: Performed By: #### HSTROPN, TSH, BNP, BMP #### [facility] [address] [place] [address] Dr. Ivan SeoCovid-19 PCR ([facility])on 10-90-1928CKBR-CoV-2 (COVID-19) RNA THONG+probe Ql (Unsp spec)Not detectedNormalNOT DETECTEDThe [facility] Comment on above:Result Comment: When diagnostic testing is negative, the [...] for this test is supported by the [place] of Health and Human Service's declaration that circumstances exist to justify the emergency use of in vitro diagnostics for the detection and/or diagnosis of the virus that causes COVID-19. This EUA will remain in effect for the duration of the COVID-19 declaration justifying emergency of IVDs, unless it is terminated or revoked by the FDA (after which the test may no longer be used).Performed By: #### HSTROPN, TSH, BNP, BMP #### [facility] [address] [place] [address] Dr. Ivan Silveira T3on [id number] T33.10 pg/mlLNormal2.18-3.98The [facility] HospitalComment on above:Performed By: #### MG, BMP #### [facility] [address] [place] [address] Dr. Ivan Silveira T4on [id number] T4 [Mass/Vol]0.90 ng/dLNormal0.76-1.46 The [facility] HospitalComment on above:Performed By: #### MG, BMP #### [facility] [address] [place] [address] Dr. Ivan SeoPROF CHEM 8 (BAS METB)on [id number] gap [Moles/Vol]10.4 mmol/LNormalThe [facility] HospitalComment on above:Performed By: #### HSTROPN, TSH, BNP, BMP #### [facility] [address] [place] [address] Dr. Ivan SeoCalcium [Mass/Vol]9.1 mg/dLNormal8.5-10.1[facility] Comment on above:Performed By: #### HSTROPN, TSH, BNP, BMP #### [facility] [address] [place] [address] Dr. Ivan SeoChloride [Moles/Vol]101 mmol/VKwathe32-583Ppd [facility] Comment on above:Performed By: #### HSTROPN, TSH, BNP, BMP #### [facility] [address] [place] [address] Dr. Ivan SeoCO2 [Moles/Vol]30.1 mmol/XUcwmvc46.0-32.0The [facility] Comment on above:Performed By: #### HSTROPN, TSH, BNP, BMP #### [facility] [address] [address] [address] Ivan SeoCreatinine [Mass/Vol]0.97 mg/dLNormal0.70-1.30The [facility] HospitalComment on above:Performed By: #### HSTROPN, TSH, BNP, BMP #### [facility] [address] [address] [address] Ivan SimmonsGFR-AF ERITREAN>60Normal>=60The [facility] HospitalComment on above:Performed By: #### HSTROPN, TSH, BNP, BMP #### [facility] [address] [place] [address] Dr. Ivan SimmonsGFR-NON AF ERITREAN>60Normal>=60The [facility] HospitalComment on above:Performed By: #### HSTROPN, TSH, BNP, BMP #### [facility] [address] [place] [address] Dr. Ivan SeoGlucose [Mass/Vol]109 mg/dLCritically ukun29-835Luj [facility] HospitalComment on above:Performed By: #### HSTROPN, TSH, BNP, BMP #### [facility] [address] [address] [address] Ivan SeoPotassium [Moles/Vol]3.5 mmol/LNormal3.5-5.1The [facility] Comment on above:Performed By: #### HSTROPN, TSH, BNP, BMP #### [facility] [address] [address] [address] Ivan SeoSodium [Moles/Vol]138 mmol/MLbaprn546-510Bxw [facility] Comment on above:Performed By: #### HSTROPN, TSH, BNP, BMP #### [facility] [address] [address] [address] Ivan SeoUrea nitrogen [Mass/Vol]17.0 mg/dLNormal7.0-18.0[facility] on above:Performed By: #### HSTROPN, TSH, BNP, BMP #### [facility] [address] [place] [address] Dr. Ivan SeoUrea nitrogen/Creatinine [Mass ratio]17.5 mg/mgNormalThe [facility] HospitalCommunson [facility] on above:Performed By: #### HSTROPN, TSH, BNP, BMP #### [facility] [address] [place] [address] Dr. Ivan Hale, HIGH SENSITIVITYon 16-31-3883BBLLSA8.7 pg/mLNormal 4.0-76.1The [facility] on above:Result Comment: CUT-OFF POINTS HAVE BEEN ESTABLISHED BASED ON THE FOURTH UNIVERSAL DEFINITIONS OF MYOCARDIAL INFARCTION. THE UPPER REFERENCE LIMIT (URL) OF TROPONIN, DEFINED THE 99TH PERCENTILE OF cTnI DISTRIBUTION IN A REFERENCE POPULATION, HAS BEEN CONFIRMED THE DECISION THRESHOLD FOR [place] DIAGNOSIS.Performed By: #### HSTROPN, TSH, BNP, BMP #### [facility] [address] [place] [address] Dr. Ivan SeoHSTROP6.8 pg/mLNormal4.0-76.1The [facility] on above:Result Comment: CUT-OFF POINTS HAVE BEEN ESTABLISHED BASED ON THE FOURTH UNIVERSAL DEFINITIONS OF MYOCARDIAL INFARCTION. THE UPPER REFERENCE LIMIT (URL) OF TROPONIN, DEFINED THE 99TH PERCENTILE OF cTnI DISTRIBUTION IN A REFERENCE POPULATION, HAS BEEN CONFIRMED THE DECISION THRESHOLD FOR [place] DIAGNOSIS.Performed By: #### HSTROPN, TSH, BNP, BMP #### [facility] [address] [place] [address] Dr. Ivan CampoverdeHomaxine 10-06-6938AMB6.636 uIU/mLNormal0.358-3.740The [facility] on above:Performed By: #### HSTROPN, TSH, BNP, BMP #### [facility] [address] [place] [address] Dr. Ivan SeoXR CHEST 1 Von [id number] CHEST 1 VEXAM: XR CHEST 1 V at 1937 hours HISTORY: Palpitations COMPARISON: None. TECHNIQUE: [...] Electronically authenticated by: ELENA KNIGHT Date: 2022-08-18 20:09NormalThUK Healthcare AUTO DIFFon [id number] #0.0 103/ulNormal0.0-0.1The [facility] HospitalComment on above:Performed By: #### HSTROPN, TSH, BNP, BMP #### [facility] [address] [place] [address] Dr. Ivan SeoBasophils/100 WBC (Bld)0.5 %Normal0.2-2.0[facility] Comment on above:Performed By: #### HSTROPN, TSH, BNP, BMP #### [facility] [address] [place] [address] Dr. Ivan Fried #0.2 103/ulNormal0.0-0.7The [facility] HospitalComment on above: Performed By: #### HSTROPN, TSH, BNP, BMP #### [facility] [address] [place] [address] Dr. Ivan Simmonsosinophils/100 WBC (Bld)2.1 %Normal0.9-7.0[facility] Comment on above:Performed By: #### HSTROPN, TSH, BNP, BMP #### [facility] [address] [place] [address] Dr. Ivan Simmonsrythrocyte distribution width (RBC) [Ratio]13.1 %Srfruv09.0-15.0 The [facility] HospitalComment on above:Performed By: #### HSTROPN, TSH, BNP, BMP #### [facility] [address] [place] [address] Dr. Ivan SeoHematocrit (Bld) [Volume fraction]41.7 %Critically low42.0-54.0 [facility] HospitalComment on above:Performed By: #### HSTROPN, TSH, BNP, BMP #### [facility] [address] [place] [address] Dr. Ivan SeoHemoglobin (Bld) [Mass/Vol]14.2 g/kKXgsaiz13.0-18.0The [facility] HospitalComment on above:Performed By: #### HSTROPN, TSH, BNP, BMP #### [facility] [address] [place] [address] Dr. Ivan Ventura #0.06 10e3/ulCritically high0.00-0.03[facility] Comment on above:Performed By: #### HSTROPN, TSH, BNP, BMP #### [facility] [address] [place] [address] Dr. Ivan Ventura %0.8 %Critically high0.0-0.5The [facility] HospitalComment on above:Performed By: #### HSTROPN, TSH, BNP, BMP #### [facility] [address] [place] [address] Dr. Ivan Santos #1.8 103/ulNormal1.2-3.8The [facility] HospitalComment on above:Performed By: #### HSTROPN, TSH, BNP, BMP #### [facility] [address] [place] [address] Dr. Ivan Mendozahocytes/100 WBC (Bld)23.4 %Ayvdls23.5-60.0The [facility] Hospitalment on above:Performed By: #### HSTROPN, TSH, BNP, BMP #### [facility] [address] [place] [address] Dr. Ivan ZabalaUAL DIFF REQNONormalThe [facility] HospitalComment on above: Performed By: #### HSTROPN, TSH, BNP, BMP #### [facility] [address] [place] [address] Dr. Ivan Falcon (RBC) [Entitic mass]30.8 qzQehjid93.9-34.0The [facility] HospitalComment on above:Performed By: #### HSTROPN, TSH, BNP, BMP #### [facility] [address] [place] [address] Dr. Ivan Perdomo (RBC) [Mass/Vol]34.1 g/jVOzfufu71.9-35.2The [place] HospitalComment on above:Performed By: #### HSTROPN, TSH, BNP, BMP #### [facility] [address] [place] [address] Dr. Ivan Perdomo (RBC) [Entitic vol]90.5 mQHnhjxl42.0-94.0The [facility] HospitalComment on above:Performed By: #### HSTROPN, TSH, BNP, BMP #### [facility] [address] [place] [address] Dr. Ivan Neumann #1.1 103/ulCritically high0.3-0.8[facility] Comment on above:Performed By: #### HSTROPN, TSH, BNP, BMP #### [facility] [address] [place] [address] Dr. Ivan Villanuevaocytes/100 WBC (Bld)14.2 %Critically high1.7-12.0The [facility] HospitalComment on above:Performed By: #### HSTROPN, TSH, BNP, BMP #### [facility] [address] [place] [address] Dr. Ivan Pastor #4.4 103/ulNormal1.4-6.5The [facility] HospitalComment on above:Performed By: #### HSTROPN, TSH, BNP, BMP #### [facility] [address] [place] [address] Dr. Ivan Arroyoophils/100 WBC (Bld)59.0 %Fufwcr36.0-75.0The [facility] HospitalComment on above:Performed By: #### HSTROPN, TSH, BNP, BMP #### [facility] [address] [place] [address] Dr. Ivan SeoPlatelet mean volume (Bld) [Entitic vol]9.2 fLCritically low 9.5-13.5The [facility] HospitalComment on above:Performed By: #### HSTROPN, TSH, BNP, BMP #### [facility] [address] [place] [address] Dr. Ivan SeoPLT277 103/pqFlucag145-409Nxs [facility] HospitalComment on above: Performed By: #### HSTROPN, TSH, BNP, BMP #### [facility] [address] [address] [address] Ivan SeoRBC4.61 106/ulCritically low4.70-6.10The [facility] HospitalComment on above:Performed By: #### HSTROPN, TSH, BNP, BMP #### [facility] [address] [place] [address] Dr. Ivan SeoWBC7.5 103/ulNormal4.0-11.0The [facility] HospitalComment on above: Performed By: #### HSTROPN, TSH, BNP, BMP #### [facility] [address] [place] [address] Dr. Ivan SeoFRTANJA T3on 73-84-8296TOQN T33.34 pg/mlLNormal2.18-3.98The [facility] HospitalCommunson [facility] on above:Performed By: #### MG, BMP #### [facility] [address] [place] [address] Dr. Ivan SeoGLYCOHEMOGLOBIN A1Con 75-16-2658VOV RECOMMENDATIONSEE BELOWNormal The [facility] HospitalCommunson [facility] on above:Result Comment: ADA RECOMMENDED LIMIT 4.0 - 6.0 ADA THERAPEUTIC TARGET < 7.0 ACTION SUGGESTED > 7.0Performed By: #### HSTROPN, TSH, BNP, BMP #### [facility] [address] [place] [address] Dr. Ivan SeoGlucose [Mass/Vol]114 mg/dLNormalThe [facility] County HospitalComment on above:Performed By: #### HSTROPN, TSH, BNP, BMP #### [facility] [address] [place] [address] Dr. Ivan SeoHbA1c (Bld) [Mass fraction]5.6 %Normal4.5-6.2The [facility] on above:Performed By: #### HSTROPN, TSH, BNP, BMP #### [facility] [address] [place] [address] Dr. Ivan MartinezID PROFILEon 84-10-4127OOCM-HDL RATIO NORMSEE [facility]Commun[facility] on above:Result Comment: 3.3 - 4.4 LOW RISK 4.4 - 7.1 AVERAGE RISK 7.1 - 11.0 MODERATE RISK >11.0 HIGH RISKPerformed By: #### CMP, TSH, FT3, T4, LIPID #### [facility] [address] [place] [address] Dr. Ivan Guevaraesterol [Mass/Vol]207 mg/dLCritically high<=200The [facility] on above:Performed By: #### CMP, TSH, FT3, T4, LIPID #### [facility] [address] [place] [address] Dr. Ivan Guevaraesterol in HDL [Mass/Vol]46 mg/yBHurmxy11-74Zcz [facility] on above:Performed By: #### CMP, TSH, FT3, T4, LIPID #### [facility] [address] [place] [address] Dr. Ivan Guevaraesterol in LDL [Mass/Vol]142.8 mg/dLRegency Hospital Toledo on above:Performed By: #### CMP, TSH, FT3, T4, LIPID #### [facility] [address] [place] [address] Dr. Ivan Good.total/Cholesterol in HDL [Mass ratio]4.5 {ratio} NormalThe [facility] on above:Performed By: #### CMP, TSH, FT3, T4, LIPID #### [facility] [address] [place] [address] Dr. Yilan ChangHDL NORMAL> or = 60 mg/dl - LOW CARDIOVASCULAR RISK <40 mg/dl - HIGH CARDIOVASCULAR RISKNoSamaritan HospitalComment on above:Performed By: #### CMP, TSH, FT3, T4, LIPID #### [facility] [address] [place] [address] Dr. Ivan SeoLDL CALC NORMALSEE BELOWMount St. Mary HospitalComment on above:Result Comment: <100 mg/dl OPTIMAL 100 - 129 mg/dl NEAR OR ABOVE OPTIMAL 130 - 159 mg/dl BORDERLINE HIGH 160 - 189 mg/dl HIGH >190 mg/dl VERY HIGH Performed By: #### CMP, TSH, FT3, T4, LIPID #### [facility] [address] [place] [address] Dr. Ivan SeoTriglyceride [Mass/Vol]91 mg/dLNormal<=150[facility] Comment on above:Performed By: #### CMP, TSH, FT3, T4, LIPID #### [facility] [address] [place] [address] Dr. Ivan SeoVLDL CALC18.2 mg/dLNoSamaritan HospitalComment on above: Performed By: #### CMP, TSH, FT3, T4, LIPID #### [facility] [address] [place] [address] Dr. Ivan SeoOCC BLD IMMUNO SCREENon 37-85-8974WEXBSK BLOODNegativeNormal NEGATIVEThe [facility] HospitalComment on above:Performed By: #### HSTROPN, TSH, BNP, BMP #### [facility] [address] [place] [address] Dr. Ivan SeoPROF 14(COMP METB)on 55-34-9880Wuululb [Mass/Vol]4.0 g/dLNormal 3.4-5.0The [facility] HospitalComment on above:Performed By: #### CMP, TSH, FT3, T4, LIPID #### [facility] [address] [place] [address] Dr. Ivan SeoAlbumin/Globulin [Mass ratio]1.1 {ratio}NormalThe [facility] HospitalComment on above:Performed By: #### CMP, TSH, FT3, T4, LIPID #### [facility] [address] [place] [address] Dr. Ivan Johnson [Catalytic activity/Vol]110 U/BSonomk80-882Uej [facility] HospitalComment on above:Performed By: #### CMP, TSH, FT3, T4, LIPID #### [facility] [address] [place] [address] Dr. Ivan Phelps [Catalytic activity/Vol]122 U/LCritically zpig14-81Vxj [facility] HospitalComment on above:Performed By: #### CMP, TSH, FT3, T4, LIPID #### [facility] [address] [place] [address] Dr. Ivan [place] gap [Moles/Vol]13.0 mmol/LNormalThe [facility] Comment on above:Performed By: #### CMP, TSH, FT3, T4, LIPID #### [facility] [address] [place] [address] Dr. Ivan Boogie [Catalytic activity/Vol]37 U/ZZegxiu32-44Eom [facility] HospitalComment on above:Performed By: #### CMP, TSH, FT3, T4, LIPID #### [facility] [address] [place] [address] Dr. Ivan SeoBilirubin [Mass/Vol]0.6 mg/dLNormal0.2-1.0[facility] Comment on above:Performed By: #### CMP, TSH, FT3, T4, LIPID #### [facility] [address] [place] [address] Dr. Ivan SeoCalcium [Mass/Vol]9.3 mg/dLNormal8.5-10.1[facility] Comment on above:Performed By: #### CMP, TSH, FT3, T4, LIPID #### [facility] [address] [place] [address] Dr. Ivan SeoChloride [Moles/Vol]102 mmol/MNyevvs49-879Lyq [facility] Comment on above:Performed By: #### CMP, TSH, FT3, T4, LIPID #### [facility] [address] [place] [address] Dr. Ivan SeoCO2 [Moles/Vol]29.1 mmol/UFkntaj56.0-32.0The [facility] Comment on above:Performed By: #### CMP, TSH, FT3, T4, LIPID #### [facility] [address] [place] [address] Dr. Ivan SeoCreatinine [Mass/Vol]0.84 mg/dLNormal0.70-1.30The [facility] HospitalComment on above:Performed By: #### CMP, TSH, FT3, T4, LIPID #### [facility] [address] [place] [address] Dr. Ivan SimmonsGFR-AF ERITREAN>60Normal>=60The [facility] HospitalComment on above:Performed By: #### CMP, TSH, FT3, T4, LIPID #### [facility] [address] [place] [address] Dr. Ivan Richard-NON AF ERITREAN>60Normal>=60[facility] CenterComment on above:Performed By: #### CMP, TSH, FT3, T4, LIPID #### [facility] [address] [place] [address] Dr. Ivan SeoGlobulin (S) [Mass/Vol]3.8 g/dLNormalThe [facility] HospitalComment on above:Performed By: #### CMP, TSH, FT3, T4, LIPID #### [facility] [address] [place] [address] Dr. Ivan SeoGlucose [Mass/Vol]106 mg/qVBnyhpl47-552XdbUniversity [facility]als St[facility] Comment on above:Performed By: #### CMP, TSH, FT3, T4, LIPID #### [facility] [address] [place] [address] Dr. Ivan SeoPotassium [Moles/Vol]4.1 mmol/LNormal3.5-5.1[facility] Comment on above:Performed By: #### CMP, TSH, FT3, T4, LIPID #### [facility] [address] [place] [address] Dr. Ivan SeoProtein [Mass/Vol]7.8 g/dLNormal6.4-8.2The [facility] Comment on above:Performed By: #### CMP, TSH, FT3, T4, LIPID #### [facility] [address] [place] [address] Dr. Ivan SeoSodium [Moles/Vol]140 mmol/MVttshj168-557Eus [facility] Comment on above:Performed By: #### CMP, TSH, FT3, T4, LIPID #### [facility] [address] [place] [address] Dr. Ivan SeoUrea nitrogen [Mass/Vol]18.0 mg/dLNormal7.0-18.0The [facility] HospitalComment on above:Performed By: #### CMP, TSH, FT3, T4, LIPID #### [facility] [address] [place] [address] Dr. Ivan Lundberg nitrogen/Creatinine [Mass ratio]21.4 mg/mgNormalThe [facility] HospitalComment on above:Performed By: #### CMP, TSH, FT3, T4, LIPID #### [facility] [address] [place] [address] Dr. Ivan Whiting 93-10-5118Y2 [Mass/Vol]7.40 ug/dLNormal4.50-12.10The [facility] HospitalComment on above:Performed By: #### MG, BMP #### [facility] [address] [place] [address] Dr. Ivan Kam 39-02-8683XCJ7.196 uIU/mLNormal0.358-3.740[facility] Medical CenterComment on above:Performed By: #### CMP, TSH, FT3, T4, LIPID #### [facility] [address] [place] [address] Dr. Ivan Seo Vital Signs Date TimeVital SignValuePerforming AembsfebwDihqtwxu27-78-3348 08:15-0400Blood Pressure [facility]PaWest[facility]03-29-2024 08:15-0400Body knspitlfcth20.42 [degF]Bentonalfa CARL [facility]03-29-2024 08:15-0400Diastolic blood wlehhbym14 mm[Hg]Benton CARL [facility]03-29-2024 08:15-0400Heart rate64 /minPatrick SIDDHARTHA [facility]03-29-2024 08:15-0400Respiratory rate16 /minPatrick SIDDHARTHA [facility]03-29-2024 08:15-0400Systolic blood fcjeomrw154 mm[Hg]Benton CARL [facility]11-17-2023 09:16-0500Diastolic blood joowhzvw94 mm[Hg]Eduardo REINOSO [facility]11-17-2023 09:16-0500Heart rate70 /minMichael NILL [facility]11-17-2023 09:16-0500Mean blood yqabyaiu567 mm[Hg]Eduardo REINOSO [facility]11-17-2023 09:16-0500 Respiratory rate19 /minMichael NILL [facility]11-17-2023 09:16-1942TpQ0% (BldA) [Mass fraction]96 %Eduardo REINOSO [facility]11-17-2023 09:16-0500 Systolic blood xxemaedf912 mm[Hg]Eduardo REINOSO [facility]11-17-2023 09:10-0500 Diastolic blood tddbyvnl83 mm[Hg]Eduardo NILL [facility]11-17-2023 09:10-0500Heart rate71 /minMichael NILL [facility]11-17-2023 09:10-0500Mean blood nmactnga827 mm[Hg]Eduardo NILL [facility]11-17-2023 09:10-0500 Respiratory rate16 /minMichael NILL [facility]11-17-2023 09:10-9622KrB4% (BldA) [Mass fraction]97 %Eduardo NILL [facility]11-17-2023 09:10-0500 Systolic blood axtyaazo042 mm[Hg]Eduardo NILL [facility]11-17-2023 09:05-0500 Diastolic blood bdafwmxb09 mm[Hg]Eduardo NILL [facility]11-17-2023 09:05-0500Heart rate71 /minMichael NILL [facility]11-17-2023 09:05-0500 Respiratory rate18 /minMichael NILL [facility]11-17-2023 09:05-7819CzT8% (BldA) [Mass fraction]97 %Eduardo NILL [facility]11-17-2023 09:05-0500 Systolic blood tumfdumz291 mm[Hg]Eduardo NILL [facility]11-17-2023 09:00-0500Mean blood lebvnelq257 mm[Hg]Eduardo NILL [facility]11-17-2023 08:55-0500Body frnfsattmkr16.7 [degF]Eduardo NILL [facility]11-17-2023 08:50-0500 Respiratory rate23 /minMichael NILL [facility]11-17-2023 08:45-0500 Respiratory rate20 /minMichael NILL [facility]11-17-2023 08:40-0500 Respiratory rate21 /minMichael NILL [facility]11-17-2023 07:03-0500Blood Pressure LocationMichael NILL [facility]11-17-2023 07:03-0500Body rykqjinzvxd39.24 [degF]Eduardo NILL [facility]10-18-2023 13:09-0400Blood Pressure LocationMichael NILL [facility] Vfhaauxh42-43-4142 13:09-0400Diastolic blood zmzgdfyk72 mm[Hg]Eduardo NILL [facility] Qyprjdjz95-16-7107 13:09-0400Heart rate 72 /minMichael NILL [facility] Asnmalzr52-14-4581 13:09-0400 Respiratory rate16 /minMichael NILL [facility] Dweyrcnk24-89-1199 13:09-0400Systolic blood pcnletoh774 mm[Hg]Eduardo NILL [facility] Yexbfwyu81-68-8238 08:24-0500Blood Pressure LocationPatrick CARL [facility]03-10-2023 08:24-0500Diastolic blood wmeskgna31 mm[Hg]Benton CARL [facility]03-10-2023 08:24-0500Systolic blood mm[Hg]Benton SIDDHARTHA [facility] Encounters Encounter DateEncounter TypeCare ProviderFacilityStart: 17-69-9025kinsebdqlmHMMDProtestant Deaconess Hospitaltart: 03-07-2025 End: 50-38-1377pgkstrcjxmYCWWBFL [facility] Centertart: 47-73-8049ckysxminhhMOKOQKettering Memorial Hospitaltart: 94-46-9443qkdvpofqsmATNWGKettering Memorial Hospitaltart: 19-55-8424rqgdmpqsszVZRZProtestant Deaconess Hospitaltart: 81-38-3059dlzcmweojmJLPIBlanchard Valley Health System [facility] Hospitaltart: 19-64-2418psmvbaxspxLNRZBlanchard Valley Health System [facility] Hospitaltart: 77-39-2788vvcunkraciSHRBBlanchard Valley Health System [facility] Hospitaltart: 2024 End: 64-78-6801jsqewoihnpEXLXVMPD E PERRYFacility:T[facility]: 07-[facility]-2024 ambulatoryBlanchard Valley Health System [facility] Hospitaltart: 06-09-2024 ambulatoryBlanchard Valley Health System [facility] Hospitalt[facility]: 05-29-2024 ambulatoryBlanchard Valley Health System [facility] Hospitaltart: 05-10-2024 ambulatoryBlanchard Valley Health System [facility] Hospitaltart: 09-24-2023 End: 05-66-7677rpwetaablkDbsnixr R WATERSFacility:EU [facility] GeneralueStart: 09-24-2023 End: 83-16-9186Nmmljvy encounter procedureBenton CARL [facility] start: 05-14-2023 End: 92-31-3848Vqszxuo encounter procedureMichael R NILL [facility] Start: 04-14-2023 End: 93-05-2225Gwbzlgz encounter procedureMichael R NILL [facility] Nill/[facility] [place] Start: 09-25-2022 End: 45-76-8637cocctawodwBM JOSH HOY .Facility:Z5Djjhf: 09-11-2022 End: 60-89-5765Xhnktxwexo and management of inpatientDR JOSH HOY .Facility:H1 Start: 09-04-2022 End: 43-31-7832xqznvziruuVF JOSH HOY .Facility:B8Ehube: 09-04-2022 End: 78-73-4642Kdlimvb encounter procedurePatrick R CARL [facility] start: 08-27-2022 End: 72-41-3100ewzidefqrsPJ JOSH HOY .Facility:E5Xjlif: 08-18-2022 End: 80-79-1076enhfenvkdmRS JOSH HOY .Facility:B7Dpwuv: 46-38-0430Zhpnnthwt for general adult medical examination without abnormal findingsDR JOSH HOY . [facility]: 06-05-2022 End: 27-63-5725alwtshpjnqIA JOSH HOY .Facility:Y3Pugpi: 06-05-2022 End: 36-52-8092Dzxzpxuly for general adult medical examination without abnormal findingsDR JOSH HOY .Facility:H1 Procedures DateProcedureProcedure DetailPerforming ClinicianStart: 68-59-9000Rdnrqtzoknda polypectomyMichael NILL Start: 43-85-5416Vgtuvzou of dermatofibromaPatrick [employer] Comment on above:right posterior thighStart: 05-14-2023 Excision of lipoma of shoulderPatrick CARL Start: 63-59-1020Rpgebhx ablation using fluoroscopy guidanceMichael NILL Start: 29-77-3556UNE screeningDR JOSH BACH .Comment on above:Performed By: #### MG, BMP #### [facility] [address] [place] [address] Dr. Ivan SeoCardiac ablation using fluoroscopy guidanceGaMoodMe Hernia repairPaMoodMe Repair of right inguinal herniaMichael NILL Immunizations Immunization DateImmunizationNotesCare GuxjshlwBytecrni82-09-2321ijwbbjfwh virus vaccine, unspecified formulationGaMoodMe [facility]10-14-2022influenza virus vaccine, unspecified formulationGaMoodMe [facility]10-14-2021influenza virus vaccine, unspecified formulationGaMoodMe [facility] CenterRabnexyy39-26-7499devhyydebn-OMybpife [employer] [facility]09-21-2020influenza virus vaccine, unspecified formulationGaMoodMe [facility]10-07-2019influenza virus vaccine, live, attenuated, for intranasal use Benton CARL [facility]09-30-2019influenza virus vaccine, unspecified formulationCTMG [facility]12-05-2018influenza virus vaccine, unspecified formulationCTMG [facility] CenterNEGATED: Highlighted row has not occurred!62-89-9959NBET-CoV-2 (COVID- 19) Ad26 vaccine, recombinantCTMG [facility] Payers DatePayer CategoryPayerPolicy [id number] [id number] [id number] Social History DateTypeDetailFacilityStart: 09-04-2022 End: 37-55-6826Gvcjktm smoking statusEx-smoker (finding)[facility] CenterComment on above:Quit 2009Sex Assigned At BirthMaleFMount Carmel Health SystemTobacco smoking statusNeverGeneral Surgery [place]omaComment on above:Quit 2008 Functional Status HqqgPvqifuijxsOwllemMzntkqxb70-68-0216Qvmjxvubvy StatusN/AExec[facility]11-17-2023Functional StatusN/AFMount Carmel Health System10-18-2023Functional StatusN/AGeneral Surgery Cyiiixvm34-71-3763 Functional StatusN/AExec[facility] Clinical Notes 09-04-2022 to 03-07-2025 Note Date & OchyIuzcNuqwmvdb13-10-7780 NoteCardiovascular Medicine [facility] SUBJECTIVE Chief Complaint Patient presents with Follow-up 1 year routine follow up appointment Congestive Heart Failure Unstable angina PSVT AVNRT Av nodeal re-entry Myocardiopathy Single subsegmental pulmonary embolism without acute cor pu Non-sustained ventricular tachycardia LBBB Typical atrial flutter Implantable loop recorder Sujata Reyna is a 49 y.o. male here for follow-up. Congestive Heart Failure PMHx: SVT, NSVT, s/p LOOP, s/p AVRNT ablation 08/2022, s/p CTI + posteroseptal pathway ablation He has been more fatigued for the past few weeks. He has some intermittent sharp left sided chest pains, lasts seconds and resolves on its own. Is not triggered by activity. He has noticed increased shortness of breath with activity. Denies palpitations, orthopnea, PND, LE edema, dizziness/LH. 03/07/2025 He denies any changes from a cardiac standpoint. He has DESAI with heavier exertion, this is stable. Denies c/o CP, orthopnea, PND, LE edema, dizziness/LH, palpitations, syncope. Currently deal with a divorce. Hopefully things will be finalized in April. Patient Active Problem List Diagnosis Abnormal cardiovascular stress test Near syncope Tachycardia Abnormal ECG Left bundle branch block (LBBB) determined by electrocardiography Intermittent palpitations Chronic systolic heart failure (CMS/HCC) Unstable angina (CMS/HCC) PSVT (paroxysmal supraventricular tachycardia) AVNRT (AV erica re-entry tachycardia) Myocardiopathy (CMS/HCC) History of cardiac radiofrequency ablation [...] file. Social History Tobacco Use Smoking status: Some Days Current packs/day: 0.00 Types: Cigars, Cigarettes Start date: 2002 Last attempt to quit: 2008 Years since quittin.7 Passive exposure: Past Smokeless tobacco: Never Substance Use Topics Alcohol use: Yes Comment: 6 pack on weekends Drug use: Never No Known Allergies OBJECTIVE Visit Vitals BP 123/70 (BP Location: Left arm, Patient Position: Sitting) Pulse 80 Ht 1.753 m (5' 9 ) Wt 88 kg (194 lb) SpO2 97% BMI 28.65 kg/m??? Smoking Status Some Days BSA 2.07 m??? Medications: Current Outpatient Medications: aspirin 81 mg EC tablet, 1 (one) time each day at the same time., Disp: , Rfl: dapagliflozin propanediol (Farxiga) 10 mg, Take 1 tablet (10 mg) by mouth in the morning., Disp: 90 tablet, Rfl: 3 Entresto 49-51 mg tablet, TAKE 1 TABLET BY MOUTH IN THE MORNING AND IN THE EVENING, Disp: 180 tablet, Rfl: 3 metoprolol succinate XL (Toprol-XL) 100 mg 24 hr tablet, TAKE 1 TABLET BY MOUTH ONCE A DAY DIRECTED *DO NOT CRUSH/CHEW* NEED APPT FOR FURTHER REFILLS, Disp: 90 tablet, Rfl: 3 tadalafil (Cialis) 10 mg tablet, Take 10 mg by mouth if needed., Disp: , Rfl: terazosin (Hytrin) 10 mg capsule, Take 10 mg by mouth in the morning., Disp: , Rfl: tiZANidine (Zanaflex) 4 mg capsule, Take 4 mg by mouth if needed each day for muscle spasms., Disp: , Rfl: Physical Exam Constitutional: Appearance: [...] Thought content normal. Judgment: Judgment normal. Labs: Ancillary Procedure on (more content not included)...[facility]03-29-2024 Hospital Discharge instructions Patient Education 09/24/2023 08:36:48 Benign Prostatic Hyperplasia Benign Prostatic Hyperplasia Benign prostatic hyperplasia (BPH) is an enlarged prostate gland that is caused by the normal agingprocess. The prostate may get bigger as a man gets older. The condition is not caused by cancer. The prostate is a walnut-sized gland that is involved in the production of semen. It is located in front of the rectum and below the bladder. The bladder stores urine. The urethra carries stored urine ou t of the body. An enlarged prostate can press on the urethra. This can make it harder to pass urine. The buildup of urine in the bladder can cause infection. Back pressure and infection may progress to bladder damage and kidney (renal) failure. What are the causes? This condition is part of the normal aging process. However, not all men develop problems from thiscondition. If the prostate enlarges away from the [...] urethra. Follow these instructions at home: Take cprb-uhf-cjuajsv and prescription medicines only as told by [...] provider. Document Revised: 12/31/2021 Document Reviewed: 12/31/2021 Elsevier Patient Education 2022 [employer]. Follow Up Care 09/04/2022 09:22:56 With:SIDDHARTHA MOLINA, Benton Zurita, URL Address: [address] [place] [address] [place] [address]- When: Unknown [facility] 11-17-2023 Hospital Discharge instructions Patient Education 05/14/2023 09:02:58 [...] colon so that bowel contents can move througheasily. You should eat 20 to 35 grams [...] corn, and seeds. This has not been foundto be true. If you find that certain foods create cramping or bloating, avoid that food. Foods high in fiber include: Fresh fruits, fresh vegetables, legumes (beans), whole wheat bread, bran muffins or cereal, and nuts. See the table below for examples of high fiber foods. Remember, your goal is 20- 35 grams per day. Amount of fiber in different foods Food Serving Grams of fiber Fruits Apple (with skin) 1 medium apple 4.4 Banana 1 medium banana 3.1 Oranges 1 orange 3.1 Prunes 1 cup, pitted 12.4 Juices Apple, unsweetened, w/added ascorbic acid 1 cup 0.5 Grapefruit, white, canned, sweetened 1 cup 0.2 Grape, unsweetened, w/added ascorbic acid 1 cup 0.5 [place] 1 cup 0.7 Vegetables Cooked Green beans 1 cup 4.0 Carrots 1/2 cup sliced 2.3 Peas 1 cup 8.8 Potato (baked, with skin) 1 medium potato 3.8 Raw [place] (with peel) 1 cucumber 1.5 Lettuce 1 [...] 8.7 Peanuts 1/2 cup 7.9 Chart from [facility] 2013. SEEK IMMEDIATE MEDICAL CARE [...] of Agriculture (USDA) National Nutrient Database at: http://www.nal.usda.gov/fnic/foodcomp/search/ Created using data from the USDA National Nutrient Database for Standard Reference. Available at http://www.nal.usda.gov/fnic/foodcomp/search/. Information adapted from: ExitCare Patient Information 2009 [employer]. Merchant Atlas 2012 http://www.[employer]/contents/sabfiuvexzfe-zlwpdmx-zvmlrl-the-basics Follow Up Care 04/14/2023 14:21:37 With:Eduardo REINOSO Address: [facility] [address], [address] [place] [phone]- Business (1) When:7 to 10 days [facility]03-10-2023 Hospital Discharge instructions Patient Education 09/04/2022 09:06:02 Benign Prostatic Hyperplasia Benign Prostatic Hyperplasia Benign prostatic hyperplasia (BPH) is an enlarged prostate gland that is caused by the normal agingprocess and not by cancer. The prostate is [...] urethra. Follow these instructions at home: Take ekbj-hqj-kprjgro and prescription medicines only as told by [...] 06/14/2006 Document Revised: 05/09/2019 Document Reviewed: 07/19/2017 [employer] Patient Education 2020 [employer]. Follow Up Care 09/12/2021 08:41:31 With:SIDDHARTHA MOLINA, Benton Zurita, URL Address: [address] [place] [address]- When: Unknown [facility] [employer] evaluation + Plan note Future Appointments Appointment Date:09/03/2023 08:00:00 AM Scheduled Provider:Benton CARL MD Location:[facility] Appointment Type:URO Office Visit Diagnostic Tests Pending * PSA Total 07/29/23 [facility] evaluation + Plan note Future Appointments Appointment Date:05/14/2023 09:00:00 AM Scheduled Provider: Location:[facility] Appointment Type:Surgery FT Appointment Date:09/03/2023 08:00:00 AM Scheduled Provider:Benton CARL MD Location:[facility] Appointment Type:URO Office Visit General Surgery [place] [employer] Evaluation + Plan note Future Appointments Appointment Date:09/03/2023 08:00:00 AM Scheduled Provider:Benton CARL MD Location:[facility] Appointments Appointment Date:2024 08:30:00 AM Scheduled Provider:Benton CARL MD Location:[facility] Appointment Type:URO Office Visit Diagnostic Tests Pending * PSA Total 06/28/24 [facility] [employer] Hospital course Narrative No data available for this section [facility] [employer] Hospital Discharge instructions No data available for this section General Surgery [place] [employer] Progress note No data available for this section [facility] [employer] Summary Purpose Family History No Family History [...] Personnel Name: Josh Bach MD Address: Address: [address] [place] [address]- Personnel Name: Josh Bach MD Address: Address: [address] [place] [address]- Personnel Name: Della MOLINA Josh Address: Address: [address] [place] [address]- Personnel Name: Della MOLINA Josh Address: Address: [address] [place] [address] (unrecognized sect ion and content) No Status Records FoundNo Status Records FoundNo Status Records Found INFORMATION SOURCE (unrecogn ized section and content) DATE CREATED AUTHOR 11/04/[address] [facility] DATE CREATED AUTHOR AUTHOR'S ORGANIZ ATION 09/04/2024 [facility] DATE CREATED AUTHOR AUTHOR'S ORGANIZ ATION 04/24/2025 [facility] FOR RECORDS PERTAINING TO PATIENTS WHO [...] BE BASED ON THE PRIMARY CLINICAL RECORDS. [employer] [facility]. provides no warranty or guarantee of the accuracy or completeness of information in this document.
--- OUTSIDE RECORDS SUMMARY | 2025-05-05 07:44 | XMS_ITS | Clinical Summary ---
Author Organization [facility] Address [address] [place] [address] Care Team Providers Care Area Mechanic Name Role Phone Mahesh Hull MD Primary Care Provider [phone] Allergies No known active allergies Medications MedicationSigDispense QuantityRefillsLast FilledStart DateEnd DateStatus terazosin (Hytrin) 10 mg capsule Take 10 mg by mouth in the morning.Active aspirin 81 mg EC tablet 1 (one) time each day at the same time.Active Entresto 49-51 mg tablet Indications:Essential hypertensionTAKE 1 TABLET BY MOUTH IN THE MORNING AND IN THE EVENING 180 tablet 5Active metoprolol succinate XL (Toprol-XL) 100 mg 24 hr tablet Indications:PalpitationsTAKE 1 TABLET BY MOUTH ONCE A DAY DIRECTED *DO NOT CRUSH/CHEW* NEED APPT FOR FURTHER REFILLS 90 tablet 5Active dapagliflozin propanediol (Farxiga) 10 mg Indications:Acute on chronic systolic heart failure, NYHA class 2 (CMS/HCC)Take 1 tablet (10 mg) by mouth in the morning. 90 tablet //ctive tiZANidine (Zanaflex) 4 mg capsule Take 4 mg by mouth if needed each day for muscle spasms.Active tadalafil (Cialis) 10 mg tablet Take 10 mg by mouth if needed.06/23/2024ctive Active Problems ProblemNoted DateDiagnosed DateDermatofibroma of thigh Hyperplastic polyp of sigmoid colon/12/2023Hallux rigidus, left foot Typical atrial ttdotvm6505/04/20235375Lyilcit81 History of pulmonary pcfvvllc19LBBB (left bundle branch block) Lipoma of left boiqcugd35Neoplasm of uncertain behavior of skin of thighScreening for malignant neoplasm of colonStatus post placement of implantable loop osgonbnr09/19/2023Non-sustained ventricular jrxkesbiyjq88/31/2023 Assessment & Plan (09/25/2022 9:22 AM EDT): Event monitor urgent report from Dr Verma for noted non sustained VT- he recommends EPS with possible VT ablation. Veaeoqlwh18/31/2023enign prostatic hyperplasia with urinary obstruction 09/25/2022MI 35.0-35.9,adult09/25/2022Former sfaidt0409/25/2022lycosuria 09/25/20226365Mdnmjbydytx72/31/1458Wbwvkoshhdvwcb79/20/2023History of cardiac radiofrequency /20/2023Single subsegmental pulmonary embolism without acute cor jnhtlweng81/20/2023VNRT (AV erica re-entry tachycardia)09/02/2022 Abnormal cardiovascular stress test08/28/2022 Overview (08/28/2022): Images from the original note were not included. 08/27/22 treadmill Cardiolite stress Assessment & Plan (08/28/2022 10:46 AM EST): Reviewed patient's echocardiogram and stress test EKG and his symptoms with patient and voicedconcerns regarding his multiple symptoms and intermittent tachycardia/Palpitations with near syncope- He is agreeable with admission to [facility] today. [facility] called no beds available we will send patient to emergency room. Her [place] updated and he is agreeable with patient being admitted for planned cardiac cath and evaluation with inpatient stay and telemetryFor any significant arrhythmia Near lujmgxc3908/28/2022 Assessment & Plan (08/28/2022 10:45 AM EST): PT with Multiple episodes of near syncope with noted chest tightness and palpitations, Concerning for significant arrhythmia of VT Or A-fib Wuhkplzgadt78/03/2023 Assessment & Plan (08/28/2022 10:47 AM EST): As above continue metoprolol Abnormal ECG08/28/2022 Assessment & Plan (08/28/2022 10:46 AM EST): New left bundle branch block Left bundle branch block (LBBB) determined by jxzvjoukxcgxwtcpmfo09/03/2023 Assessment & Plan (08/28/2022 10:47 AM EST): As above* Intermittent udqqmxjvpsxx23/03/2023 Assessment & Plan (08/28/2022 10:47 AM EST): Palpitations and noting abnormal heart rhythm per his automatic blood pressure cuff of which is unable to take as blood pressure is concerning for VT and or A-fib Admission and telemetry monitoring He may need 30-day event monitor at discharge Chronic systolic heart wbiajwk8608/28/2022 Assessment & Plan (08/28/2022 10:50 AM EST): [place] heart class II Patient to be admitted today to [facility] for cardiac cath and he will have optimization of goal-directed medical therapy as inpatient and education on heart failure Unstable mdgvop4608/28/2022 Assessment & Plan (08/28/2022 10:49 AM EST): Plan admission to [facility] with cardiology consult and plan for cardiac cath today or Wednesday to inpatient service recommendations, telemetry and further testing PSVT (paroxysmal supraventricular tachycardia)08/28/2022 Overview (2022): Added automatically from request for surgery [id number] Encounters DateTypeDepartmentCare KhouQkvemhjcvbh67/25/2025Orders Only [facility] [address] [place] [phone] Octavio Polo MD 04/09/2025 3:00 PM EDTAncillary Procedure [facility] [address] [place] [address] Awareness of nhwceumspc18/10/2025 11:00 AM EDTOffice Visit [facility] [address] [place] [address] Adilene England CNP Chronic systolic heart failure (CMS/HCC) (Primary Dx); Heart failure with improved ejection fraction (HFimpEF) (CMS/HCC); Non-sustained ventricular tachycardia (CMS/HCC); AVNRT (AV erica re-entry tachycardia); History of cardiac radiofrequency ablation; NICM (nonischemic cardiomyopathy) (CMS/HCC); Implantable loop recorder ciciosk5002/19/2025Telephone [facility] [address] [place] [address] Valarie Strickland MA 02/19/2025Refill [facility] [address] [place] [address] Valarie Strickland MA Acute on chronic systolic heart failure, NYHA class 2 (CMS/HCC)02/05/2025 11:30 AM EDTAncillary Procedure [facility] [address] [place] [address] Awareness of heartbeatsfrom Last 3 Months Immunizations ImmunizationAdministration DatesNext DueInfluenza, High Dose Seasonal, Preservative Free04/10/2022Influenza, injectable, MDCK, preservative free, olntrwqyghtx98/12/2022,04/10/2021,03/27/2019,06/01/2018Influenza, injectable, MDCK, qsarhfqbbpuk89/21/2020 Family History RelationNameStatusCommentsFatherDeceasedMotherAlive Social History Tobacco UseTypesPacks/DayYears UsedDateSmoking Tobacco: Some DaysCigarettes Started: 2002; Last attempted to quit: 2008CisPassive Smoke Exposure: Past Smokeless Tobacco: Never Tobacco Cessation:Ready to Q uit: Not Asked; Counseling Given: Not Answered Alcohol UseStandard Drinks/WeekCommentsYes0 (1 standard drink = 0.6 oz pure alcohol)6 pack on weekendsHumiliation, Afraid, Rape, and Kick questionnaire AnswerDate RecordedWithin the last year, have you been afraid of your partner or ex-partner?No08/28/2022Emotionally AbusedNot on file08/28/2022hysically Abused Not on file08/28/2022Sexually AbusedNot on file08/28/2022Overall Financial Resource Strain (CARDIA)AnswerDate RecordedHow hard is it for you to pay for the very basics like food, housing, medical care, and heating?Not hard at all 08/28/2022UT Safety & EnvironmentAnswerDate RecordedFear of Current or Ex-PartnerNot on file08/30/2023Emotionally AbusedNot on file08/30/2023hysically AbusedNot on file08/30/2023Sexually AbusedNot on file08/30/2023hysically or Sexually AbusedNot on file08/30/2023TransportationAnswerDate RecordedIn the past 12 months, has lack of transportation kept you from medical appointments or from getting medications?No08/28/2022Lack of Transportation (Non-Medical)Not on file 08/28/2022Housing Stability Vital SignAnswerDate RecordedUnable to Pay for Housing in the Last YearNot on file08/28/2022Number of Places Lived in the Last YearNot on file08/28/2022In the last 12 months, was there a time when you did not have a steady place to sleep or slept in [place] (including now)?No 08/28/2022Hunger Vital SignAnswerDate RecordedWithin the past 12 months, you worried that your food would run out before you got the money to buymore.Never true08/28/2022Ran Out of Food in the Last YearNot on file08/28/2022Sex and Gender InformationValueDate RecordedSex Assigned at PjgxhTrvp60/18/2023 6:57 AM ESTLegal JimDygq6108/28/2022 8:40 AM ESTGender FoyohiqrHyad02/18/2023 6:57 AM EST Sexual OrientationHeterosexual or Qbmtcyon58/18/2023 6:57 AM EST Last Filed Vital Signs Vital SignReadingTime TakenCommentsBlood Oojdionj537/7009 11:07 AM EDT Bzznl1883/10/2025 11:07 AM GGAXvprlaimuur94.9 ??C (98.5 ??F)09/02/2022 7:50 AM ESTRespiratory Dpfm992708/15/2022 1:30 PM ESTOxygen Wwfqypqclo33%03/07/2025 11:07 AM EDTInhaled Oxygen Concentration--Nibxue69 kg (194 lb)03/07/2025 11:07 AM EDT Eefdra485.3 cm (5' 9 )03/07/2025 11:07 AM EDTBody Mass Index28.65003/07/2025 11:07 AM EDT Plan of Treatment Health MaintenanceDue DateLast DoneCommentsCT Sdbjujqefooa45/07/1975Colonoscopy 1974Colorectal Cancer Vitslbabr22/07/1975FIT-DNA1974FIT1974 FOBT1974 8426Ugqnwbtabydqy96/07/1975Depression Pkakpnysv04/07/1987Hepatitis B Vaccines (1 of 3 - 19+ 3-dose series)1993Pneumococcal Vaccine: Pediatrics (0 to 5 Years) and At-Risk Patients (6 to 64 Years) (1 of 2 - PCV)1993 Adult Lkuextp9909/01/1996Zoster Vaccines (1 of 2)5COVID-19 Vaccine (1 - season)2025Influenza Vaccine (#1)512/05/2022, 04/10/2022, 04/10/2021, Additional history existsHIB VaccinesAged OutNo longer eligible based on patient's age to complete this topicHPV VaccinesAged OutNo longer eligible based on patient's age to complete this topicIPV VaccinesAged OutNo longer eligible based on patient's age to complete this topicMeningococcal B VaccineAged OutNo longer eligible based on patient's age to complete this topic Meningococcal VaccineAged OutNo longer eligible based on patient's age to complete this topicRotavirus VaccinesAged OutNo longer eligible based on patient's age to complete this topic Medical Devices ImplantedTypeAreaManufacturerDevice IdentifierShelf Expiration DateModel / Serial / LotMonitor,Cardiac,Mobile,Luxdx - [id number] - [id number] Implanted:Qty: 1 on 11/05/2022 by [facility]abh Verma [facility] RecorderB[facility]09/23/2023M301 / [id number] / Procedures Procedure NamePriorityDate/TimeAssociated DiagnosisCommentsCARDIAC DEVICE CHECK CHECK - KGJBNLHvaanjs70/27/2025 9:52 AM EDT Awareness of heartbeats CARDIAC DEVICE CHECK - REMOTE - LOOP RECORDER (ILR)Yilhpei1004/21/2025 12:00 AM EDTCARDIAC DEVICE CHECK CHECK - ANZMFQDizpzdn19/14/2025 7:13 PM EDT Awareness of heartbeats from Last 3 Months Results * CARDIAC DEVICE CHECK - REMOTE - LOOP RECORDER (ILR) (04/23/2025 9:52 AM EDT) Only the most recent of2 resultswithin the time period is included. Specimen (Source)Anatomical Location / LateralityCollection Method / Volume Collection TimeReceived Time Narrative Authorizing ProviderResult TypeResult StatusPakayode Verma [facility] IMPLANTABLE CARDIAC DEVICE PROCEDURESFinal ResultPerforming OrganizationAddressCity/State/ZIP Code Phone Number CPACS * Cardiac device check - Remote loop recorder (ILR) (04/21/2025 12:00 AM EDT) Anatomical RegionLateralityModalityOtherSpecimen (Source)Anatomical Location / LateralityCollection Method / VolumeCollection TimeReceived Time04/21/2025 Narrative Authorizing ProviderResult TypeResult StatusOctavio Polo [facility] IMPLANTABLE CARDIAC DEVICE PROCEDURESFinal Result from Last 3 Months Insurance Advance Directives * Full Code (Latest Code Status on File) Date ActivatedDate GxaphuftgbnJybbmyjm89/18/2023 11:55 AM06/14/2023 4:04 PM * Full Code Date ActivatedDate InactivatedComments11/05/2022 9:11 AM11/05/2022 11:16 AM * Full Code Date ActivatedDate InactivatedComments10/02/2022 4:41 PM10/02/2022 9:02 PM * Full Code Date ActivatedDate InactivatedComments08/28/2022 3:34 PM09/02/2022 12:27 PM Care Teams Team MemberRelationshipSpecialtyStart DateEnd Mahesh Hull MD [address] [facility] [address] [facility]08/28/22
--- OUTSIDE RECORDS SUMMARY | 2025-05-05 07:44 | XMS_ITS | Patient Health Record ---
Author Organization [facility] in [place] Address [address] [place] [address] Care Team Providers Care Bottling Room Worker Name Role Phone Hiren Hull Primary Care Provider Allergies No Known Allergies Results Component Value Reference Range Notes CBC AUTO DIFF Reviewed date:05/14/2024 02:14:38 PM Interpretation: Performing Lab: Notes/Report: [facility] , White Blood Count 8.4 4.0-11.0 10 3/uL Red Blood Count4.974.70-6.10 10 6/nKEbollokdpw38.114.0-18.0 g/xYHwwlvtdyvs94.9 42.0-54.0 %Mean Corpuscular Wqiktv45.480.0-94.0 fLMean Corpuscular Hemoglobin 32.425.9-34.0 pgMean Corpuscular HGB Conc34.329.9-35.2 g/dLRed Cell Distribution Width14.011.0-15.0 %Platelet Xzydu675780-432 10 3/uLMean Platelet Volume8.69.5- 13.5 fLNeutrophils Percent Auto68.443.0-75.0 %Lymphocytes Percent Auto19.520.5- 60.0 %Monocytes Percent Auto8.31.7-12.0 %Eosinophils Percent Auto2.80.9-7.0 % Basophils Percent Auto0.50.2-2.0 %Immature Granulocytes Pct Auto0.50.0-0.5 % Neutrophils Absolute Auto5.81.4-6.5 10 3/uLLymphocytes Absolute Auto1.71.2-3.8 10 3/uLMonocytes Absolute Auto0.70.3-0.8 10 3/uLEosinophils Absolute Auto0.20.0- 0.7 10 3/uLBasophils Absolute Auto0.00.0-0.1 10 3/uLImmature Granulocytes Abs Auto0.040.00-0.03 10 3/uLPerforming Lab:see noteML - [facility] LB FREE T3 Reviewed date:05/14/2024 02:14:38 PM Interpretation: Performing Lab: Notes/Report: [facility] ,Free T32.942.18-3.98 pg/mLPerforming Lab:see note - [facility] LB GLYCOHEMOGLOBIN A1C Reviewed date:05/14/2024 02:14:38 PM Interpretation: Performing Lab: Notes/Report: [facility] ,Glycohemoglobin A1C5.54.5-6.2 % ADA THERAPEUTIC TARGET < 7.0 ADA RECOMMENDED LIMIT 4.0 - 6.0 > 7.0 ACTION SUGGESTED Estimated Average Xzcqllu713Ztmaccqqpu Lab:see note - [facility] LB LIPID PROFILE Reviewed date:05/14/2024 02:14:38 PM Interpretation: Performing Lab: Notes/Report: [facility] ,Lhzmkzttzuiwa43<=150 mg/hZSjjfeikdeoa937<=200 mg/dLHDL Lliaqrczlem3251-62 mg/dL <40 mg/dl - HIGH CARDIOVASCULAR RISK > or =60 mg/dl - LOW CARDIOVASCULAR RISK LDL Cholesterol Yirklzwdxz562.0 100-129 mg/dl NEAR OR ABOVE OPTIMAL 160-189 mg/dl HIGH <100 mg/dl OPTIMAL >190 mg/dl VERY HIGH 130-159 mg/dl BORDERLINE HIGH VLDL SGUBWUPSHGR69.0Chol HDL Ratio3.4 >11.0 HIGH RISK 3.3 - 4.4 LOW RISK 7.1 - 11.0 MODERATE RISK 4.4 - 7.1 AVERAGE RISK Performing Lab[facility] LBPROF 14(COMP METB) Reviewed date:05/14/2024 02:14:38 PM Interpretation: Performing Lab: Notes/Report: [facility] ,Ardoyf823585-646 mmol/LPotassium4.03.5-5.1 mmol/VXyhtwnde68038-080 mmol/LCarbon Lfodzvj53.621.0-32.0 mmol/LAnion Gap14.0Fsnchrf96646-146 mg/dLBlood Urea Cvtxbkpl74.07.0-18.0 mg/dLCreatinine0.980.70-1.30 mg/dLEstimated GFR ( Ella>60>=60 mL/min/1.73m 2Estimated GFR (Non- Cheyanne>60>=60 mL/min/1.73m 2BUN Creatinine Ratio11.0Eeyuubd7.28.5-10.1 mg/dLBilirubin Total0.40.2-1.0 mg/dL Aspartate Amino Qqkclimfbep3655-39 U/LAlanine Xjqblgvcbfatwevq0845-35 U/L Alkaline Ougewqvprcj3534-644 U/LTotal Protein7.36.4-8.2 g/dLAlbumin Level4.03.4- 5.0 g/dLGlobulin3.3Albumin Globulin Ratio1.2Performing Lab:see noteML - [facility] LBPSA SCREENING Reviewed date:05/14/2024 02:14:38 PM Interpretation: Performing Lab: Notes/Report: [facility] ,Prostate Specific Antigen Scrn1.10<=4.00 ng/mLPerforming Lab:see noteML - [facility] LBT4 Reviewed date:05/14/2024 02:14:38 PM Interpretation: Performing Lab: Notes/Report: [facility] ,T4 Thyroxine7.004.50-12.10 ug/dLPerforming Lab:see noteML - [facility] LBTSH Reviewed date:05/14/2024 02:14:38 PM Interpretation: Performing Lab: Notes/Report: [facility] ,Thyroid Stimulating Hormone1.8430.358-3.740 uIU/mLPerforming Lab:see noteML - [facility] LBBNP Reviewed date:05/14/2024 02:14:38 PM Interpretation: Performing Lab: Notes/Report: [facility] ,NT Pro B Type Natriuretic Pept35.0<=900.0 pg/mLPerforming Lab:see noteML - [facility] LB Reason For Referral No Information Medications Medication SIG (Take, Route, Frequency, Duration) [...] past year?Less than monthly (1 point)Points3 InterpretationNegative Problems Problem Type SNOMED Code ICD Code Onset Dates Problem Status W/U Status Risk Notes Problem Unstable angina (3932151) Unstable angina (I20.0) ActiveconfirmedProblemPulmonary Embolism (00815657)Other pulmonary embolism without acute cor pulmonale (I26.99)ActiveconfirmedProblemTypical atrial flutter (935853914)Typical atrial flutter (I48.3)ActiveconfirmedProblemCardiac arrhythmia (189987868)Other specified cardiac arrhythmias (I49.8)Activeconfirmed ProblemCardiomegaly (6927143)Cardiomegaly (I51.7)ActiveconfirmedProblemAcquired hallux rigidus (4916905)Hallux rigidus, left foot (M20.22)ActiveconfirmedProblem Hypertension (23286875)Hypertension (I10)ActiveconfirmedProblemCardiomyopathy (47793452)Cardiomyopathy (I42.9)ActiveconfirmedProblemCongestive heart failure (39494159)CHF (congestive heart failure) (I50.9)ActiveconfirmedProblem Tachycardia (1179406)Tachycardia (R00.0)ActiveconfirmedProblemLeft bundle branch block (66125715)LBBB (left bundle branch block) (I44.7)ActiveconfirmedProblem Pain in limb (35600183)Foot pain, left (M79.672)ActiveconfirmedProblemWell adult (898812638)Well adult (Z00.00)ActiveconfirmedProblemPrediabetes (713561416)Pre- diabetes (R73.09)ActiveconfirmedProblemLateral epicondylitis (758630853)Lateral epicondylitis (M77.10)ActiveconfirmedProblemOverweight (573591954)Over weight (E66.3)ActiveconfirmedProblemLeukocytosis (755000350)Leukocytosis, unspecified type (D72.829)ActiveconfirmedProblemBenign prostatic hypertrophy without outflow obstruction (439562368)BPH (benign prostatic hypertrophy) (N40.0)Activeconfirmed Vital Signs Blood pressure diastolic 70 mm Hg 04/30/2025 Dwpfkf33 in04/30/2025lood pressure mm Hg04/30/20252711Lgdxrv417.8 lbs 04/30/2025BMI29.5 kg/m204/30/2025 Encounters Encounter Location Date Provider Diagnosis [facility] [address] [place] [address] 06/27/2024 Hiren Hoy Acute bronchitis, unspecified organism J20.9 [facility] [address] [place] [address] 05/08/2024 Hiren Hoy Well adult Z00.00 [facility] [address] [place] [address] 04/30/2025 Hiren Hoy Well adult Z00.00 [facility] [address] [place] [address] 05/14/2024 Hi[facility] [place] [address] [facility] [facility] [place] [address]Doug HoyAcute bronchitis, unspecified organism [facility]20.9[facility] [facility] [place] [address]/ Hiren Hull Assessments Encounter Date Diagnosis (ICD Code) Assessment Notes Treatment Notes Treatment Clinical Notes Section Notes 05/08/2024 Well adult (ICD-10 - Z00.00) 4Acute bronchitis, unspecified organism (ICD-10 - J20.9)Rest and drink more liquids, especially water. You may use a humidifier or vaporizer to help keep the drainage moist. Ksyx-xkv-zehlcgb Nasal Saline may help the stuffy and runny nose. Use Ibuprofen and or Tylenol as needed for fever, chills, body aches or pain. Children 5 years old should not be given dtao-umo-bovimab cough and cold medications such as guaifenesin and dextromethorphan. If you're over age 5, you may try oshf-ckk-htgaflx cold medications such as guaifenesin and dextromethorphan, or multi-symptom cold reliever such as Dayquil to help reduce the symptoms. Antibiotics have been prescribed. You should take these until completed and follow the directions. Antibiotics can sometimescause upset stomach, and in rare cases, serious allergic reactions or serious gastrointestinal problems. If you start having severe abdominal pain, severe vomiting, or bloody diarrhea, you should be reevaluated by your physician or urgent care immediately. Follow up with your Primary Care Provider or return to clinic if symptoms do not improve within 3-5 days. If you develop severe symptoms such as shortness of breath, repeated vomiting, coughing up blood, or chest pain you should go to the emergency room or call [phone] adult (ICD-10 - Z00.00)5Acute bronchitis, unspecified organism (ICD-10 - J20.9) Plan Of Treatment Pending Test Test Name Order Date CMP (COMPLETE METABOLIC PANEL) 3 CMP (COMPLETE METABOLIC PANEL) 4 HEMOGLOBIN A1C (GLYCO) 05/08/2024 HEMOGLOBIN A1C (GLYCO) 04/30/2025 HEMOGLOBIN A1C (GLYCO) 04/30/2023 INSULIN, TOTAL 04/30/2023 INSULIN, TOTAL 04/30/2025 LIPID PANEL (CHOL/TRIG/HDL/LDL) 04/30/20 25 LIPID PANEL (CHOL/TRIG/HDL/LDL) 04/30/20 23 LIPID PANEL (CHOL/TRIG/HDL/LDL) 05/08/20 24 CBC WITH DIFF 05/08/2024 CBC WITH DIFF 04/30/2023 PSA, PROSTATE-SPECIFIC ANTIGEN 3 URIC ACID 04/30/2023 URIC ACID 04/30/2025 RHEUMATOID PANEL 04/30/2023 PSA, TOTAL 05/08/2024 High Sensitivity Troponin 04/30/2025 STOOL OCCULT BLOOD 05/08/2024 BNP 04/30/2025 CTA CHEST WO W CON 03/04/2023 US JORDEN DOP LEG RT 03/16/2023 THYROID PANEL (T4/TSH/FREE T3) 5 THYROID PANEL (T4/TSH/FREE T3) 4 THYROID PANEL (T4/TSH/FREE T3) 3 PSA, SCREENING 04/30/2025 CMP (COMP MET FRIEND) w/eGFR CKD-EPI 2024 CBC WITH DIFF 04/30/2025 Insurance Providers Payer Name Payer Address Payer Phone Subscriber Number Group Number Insured Name Patient Relationship to Insured Coverage Start Date Coverage End Date [employer]TE GRAYSON [address] [place] [address] [id number] Bernard Reyna Self - patient is the insured Medical (General) History Medical History History ICD Code Leukocytosis, unspecified type D72.829 Other pulmonary embolism without acute c or pulmonale I26.99 Other specified cardiac arrhythmias I49. 8 CHF (congestive heart failure) I50.9 Cardiomyopathy I42.9 Unstable angina I20.0 Tachycardia R00.0 LBBB (left bundle branch block) I44.7 Over weight E66.3 Pre-diabetes R73.09 Hypertension I10 BPH (benign prostatic hypertrophy) N40.0 Surgical History Surgery Date(Month/Year) Loop Recorder 11/05/22 Lipoma removal- Right thigh, Left upper back- Dr. Meléndez 05/14/23 Colonoscopy 05/14/2023 Cardiac Ablation right heart cathinguinal hernia rightCardiac Loop Insertion
--- OUTSIDE RECORDS SUMMARY | 2025-05-05 07:44 | XMS_ITS | Encounter Summary ---
Author Organization [facility] Address [address] [place] [address] Care Team Providers Care Ship Boss Name Role Phone Mahesh Hull MD Primary Care Provider [phone] Encounter Details DateTypeDepartmentCare Team (Latest Contact Info)Siotubwxpdj73/25/2025Orders Only [facility] [address] [place] [address] Octavio Polo MD [address] [place] [address] Social History Tobacco UseTypesPacks/DayYears UsedDateSmoking Tobacco: Some DaysCigarettes Started: 2002; Last attempted to quit: 2008CigarsPassive Smoke Exposure: Past Smokeless Tobacco: NeverAlcohol UseStandard Drinks/WeekCommentsYes0 (1 standard drink = 0.6 oz pure alcohol)6 pack on weekendsHumiliation, Afraid, Rape, and Kick questionnaireAnswerDate RecordedWithin the last year, have you been afraid of your partner or ex-partner?No08/28/2022Emotionally AbusedNot on file 08/28/2022hysically AbusedNot on file08/28/2022Sexually AbusedNot on file 08/28/2022Overall Financial Resource Strain (CARDIA)AnswerDate RecordedHow hard is it for you to pay for the very basics like food, housing, medical care, and heating?Not hard at all08/28/2022UT Safety & EnvironmentAnswerDate RecordedFear of Current or Ex-PartnerNot on file08/30/2023Emotionally AbusedNot on file 08/30/2023hysically AbusedNot on file08/30/2023Sexually AbusedNot on file 08/30/2023hysically or Sexually AbusedNot on file08/30/2023TransportationAnswer Date RecordedIn the past 12 months, has lack of transportation kept you from medical appointments or from getting medications?No08/28/2022Lack of Transportation (Non-Medical)Not on file08/28/2022Housing Stability Vital Sign AnswerDate RecordedUnable to Pay for Housing in the Last YearNot on file 08/28/2022Number of Places Lived in the Last YearNot on file08/28/2022In the last 12 months, was there a time when you did not have a steady place to sleep or slept in ashelter (including now)?No08/28/2022Hunger Vital SignAnswerDate RecordedWithin the past 12 months, you worried that your food would run out before you got the money to buymore.Never true08/28/2022Ran Out of Food in the Last YearNot on file08/28/2022Sex and Gender InformationValueDate RecordedSex Assigned at CglzqOzuw69/18/2023 6:57 AM ESTLegal OvuBpzo2408/28/2022 8:40 AM EST Gender XemgltxcIqdc43/18/2023 6:57 AM ESTSexual OrientationHeterosexual or Syghzusq36/18/2023 6:57 AM ESTdocumented as of this encounter Plan of Treatment Not on file documented as of this encounter Procedures Procedure NamePriorityDate/TimeAssociated DiagnosisCommentsCARDIAC DEVICE CHECK - REMOTE - LOOP RECORDER (ILR)Usysrzi5904/21/2025 12:00 AM EDTdocumented in this encounter Results * Cardiac device check - Remote loop recorder (ILR) (04/21/2025 12:00 AM EDT) Anatomical RegionLateralityModalityOtherSpecimen (Source)Anatomical Location / LateralityCollection Method / VolumeCollection TimeReceived Time04/21/2025 Narrative Authorizing ProviderResult TypeResult StatusSadarion Polo [facility] IMPLANTABLE CARDIAC DEVICE PROCEDURESFinal Result documented in this encounter Visit Diagnoses Not on filedocumented in this encounter Care Teams Team MemberRelationshipSpecialtyStart DateEnd Mahesh Hull MD [address] [facility] [address] [place] [id number] PCP - General08/28/22documented as of this encounter
[2025-05-05 08:12] LABS: Hematocrit 46.5 % (42.0-54.0); Hemoglobin 16.1 g/dL (14.0-18.0); Immature Granulocytes Abs Auto 0.15 10^3/uL (0.00-0.03); Immature Granulocytes Pct Auto 1.4 % (0.0-0.5); Lymphocytes Absolute Auto 1.9 10^3/uL (1.2-3.8); Mean Corpuscular HGB Conc 34.6 g/dL (29.9-35.2); Mean Corpuscular Hemoglobin 33.5 pg (25.9-34.0); Mean Corpuscular Volume 96.9 fL (80.0-94.0); Platelet Count 259 10^3/uL (150-450); Red Blood Count 4.80 10^6/uL (4.70-6.10); White Blood Count 11.1 10^3/uL (4.0-11.0)
[2025-05-05 08:27] LABS: Alanine Aminotransferase 9 U/L (16-63); Albumin Globulin Ratio 1.2; Albumin Level 4.0 g/dL (3.4-5.0); Alkaline Phosphatase 106 U/L (46-116); Anion Gap 12.5; Aspartate Amino Transferase 11 U/L (15-37); Blood Urea Nitrogen 12.0 mg/dL (7.0-18.0); Calcium 9.2 mg/dL (8.5-10.1); Carbon Dioxide 27.6 mmol/L (21.0-32.0); Chloride 105 mmol/L (98-107); Cholesterol 159 mg/dL (<=200); Estimated GFR (African America >60 (>=60 mL/min/1.73m^2); Estimated GFR (Non-African Ame >60 (>=60 mL/min/1.73m^2); Free T3 3.06 pg/mL (2.18-3.98); Globulin 3.3 g/dL; Glucose 87 mg/dL (74-106); HDL Cholesterol 45 mg/dL (40-60); NT Pro B Type Natriuretic Pept 159.0 pg/mL (<=900.0); Potassium 4.1 mmol/L (3.5-5.1); Sodium 141 mmol/L (136-145); Thyroid Stimulating Hormone 1.879 uIU/mL (0.358-3.740); Total Protein 7.3 g/dL (6.4-8.2); Triglycerides 85 mg/dL (<=150); VLDL CHOLESTEROL 17.0 mg/dL
[2025-05-05 08:49] LABS: Uric Acid 3.4 mg/dL (3.5-7.2)
== END 2025-05-05 07:40 | disposition home or self-care (01) ==
PROVIDERS: PCP Family Medicine; Visit Provider Family Medicine
DX: Z00.00 Encounter for general adult medical examination without abnormal findings (principal); Z12.5 Encounter for screening for malignant neoplasm of prostate
CPT/HCPCS: 36415; 80053; 80061; 83036; 83525; 83880; 84436; 84443; 84481; 84484; 84550; 85025; G0103